=== PATIENT | female | born 1975 | race African-American/Black ===

== ENCOUNTER 2016-10-15 17:30 | Inpatient (IN) | payer BC ==
--- NOTE | 2016-10-15 18:13 | ED ---
General Adult HPI - General Chief complaint: Nausea/Vomiting/Diarrhea Stated complaint: vomiting Time Seen by Provider: 10/15/16 17:45 Source: patient, RN notes reviewed, old records reviewed Mode of arrival: ambulatory Limitations: no limitations - History of Present Illness Initial comments: This is a 41-year-old female ER for evaluation today. Patient is a 19 for evaluation of nausea and vomiting. Diarrhea. Not feeling well. Patient is on dialysis home dialysis peritoneal dialysis. Patient has a decreased appetite lately. She was refusing started on potassium supplements but has not been taking it. Patient denies any specific abdominal pain no fevers. No sick contacts or travel history. Otherwise no new medications - Related Data Home Medications Medication Instructions Recorded Confirmed Insulin Aspart [NovoLOG] 3 unit SQ AC-TID 12/24/13 10/15/16 Insulin Glargine [Lantus] 15 unit SQ HS 12/24/13 10/15/16 Sodium Bicarbonate Tab 650 mg PO DAILY 11/24/14 10/15/16 Calcitriol [Rocaltrol] 0.25 mcg PO DIRECTED 12/15/14 10/15/16 Atorvastatin Calcium [Lipitor] 20 mg PO HS 01/08/15 10/15/16 Ergocalciferol (Vitamin D2) 50,000 unit PO Q30D 01/08/15 10/15/16 [Drisdol] Magnesium Oxide [Mag-Ox] 400 mg PO TID 01/08/15 10/15/16 Midodrine [ProAmatine] 5 mg PO DAILY PRN 08/22/15 10/15/16 Ethinyl Estradiol/Drospirenone 1 tab PO DAILY 12/25/15 10/15/16 [Loryna 3 mg-0.02 mg Tablet] Pantoprazole [Protonix] 40 mg PO QAM 12/25/15 10/15/16 Metolazone [Metolazone] 5 mg PO BID 04/04/16 10/15/16 Ondansetron Odt [Zofran Odt] 4 mg PO Q12HR PRN 04/04/16 10/15/16 Furosemide [Lasix] 80 mg PO BID 10/15/16 10/15/16 Lisinopril [Prinivil] 5 mg PO BID 10/15/16 10/15/16 Metoclopramide [Reglan] 10 mg PO BID 10/15/16 10/15/16 Multivitamins, Thera [Multivitamin] 1 tab PO DAILY 10/15/16 10/15/16 Potassium Chloride Oral Liquid 10 meq PO HS 10/15/16 10/15/16 Potassium Chloride Oral Liquid 20 meq PO QAM 10/15/16 10/15/16 Sevelamer [Renvela] 800 mg PO AC-BID 10/15/16 10/15/16 Allergies Allergy/AdvReac Type Severity Reaction Status Date / Time No Known Allergies Allergy Verified 10/15/16 18:05 Review of Systems ROS Statement: Those systems with pertinent positive or pertinent negative responses have been documented in the HPI. ROS Other: All systems not noted in ROS Statement are negative. Past Medical History Past Medical History: Heart Failure, Diabetes Mellitus, Dialysis, GERD/Reflux, Hyperlipidemia, Hypertension, Renal Disease Additional Past Medical History / Comment(s): Recent admission 10/21/15 with peritonitis, End stage RENAL FAILURE WITH PERITONEAL DIALYSIS. HX: CHF, bronchitis, respiratory failure due to sepsis and was vented once, IDDM type II , O2 1L/NC prn, diabetic neuropathy bilateral feet, UTI, anemia, hiatal hernia, hypokalemia. History of Any Multi-Drug Resistant Organisms: None Reported Past Surgical History: Bowel Resection, Breast Surgery, Hernia Repair Additional Past Surgical History / Comment(s): R breast biopsy X 2 both benign. breast reduction. ADONIS CATARACT with lens implants. JANUARY 2015 HEMODIALYSIS CHEST CATHETER INSERTED AND REMOVED., PERITONEAL CATHETER INSERTED FEBRUARY 2015. Uumbilical hernia repair with ischemic bowel within-small resection. CoLnoscopy /EGD. Past Anesthesia/Blood Transfusion Reactions: Motion Sickness Additional Past Anesthesia/Blood Transfusion Reaction / Comment(s): STATES SOME MOTION SICKNESS TODAY (08/22/15) Past Psychological History: No Psychological Hx Reported Additional Psychological History / Comment(s): Continues to work at [employer]. Lifelong nonsmoker. No significant alcohol or recreational drug use. No experience. No recent animal exposures. Smoking Status: Never smoker Past Alcohol Use History: Occasional Past Drug Use History: None Reported - Past Family History Mother Family Medical History: Osteoarthritis (OA) Additional Family Medical History / Comment(s): Mother is living. Father Family Medical History: Cancer Additional Family Medical History / Comment(s): Father of LIVER cancer at age 61 yrs. General Exam Limitations: no limitations General appearance: alert, in no apparent distress Head exam: Present: atraumatic, normocephalic, normal inspection Eye exam: Present: normal appearance, PERRL, EOMI. Absent: scleral icterus, conjunctival injection, periorbital swelling ENT exam: Present: normal exam, mucous membranes moist Neck exam: Present: normal inspection. Absent: tenderness, meningismus, lymphadenopathy Respiratory exam: Present: normal lung sounds bilaterally. Absent: respiratory distress, wheezes, rales, rhonchi, stridor Cardiovascular Exam: Present: regular rate, normal rhythm, normal heart sounds. Absent: systolic murmur, diastolic murmur, rubs, gallop, clicks GI/Abdominal exam: Present: soft, normal bowel sounds. Absent: distended, tenderness, guarding, rebound, rigid Extremities exam: Present: normal inspection, full ROM, normal capillary refill. Absent: tenderness, pedal edema, joint swelling, calf tenderness Back exam: Present: normal inspection Neurological exam: Present: alert, oriented X3, CN II-XII intact Psychiatric exam: Present: normal affect, normal mood Skin exam: Present: warm, dry, intact, normal color. Absent: rash Course Vital Signs 10/15/16 10/15/16 17:36 19:10 Temperature 97.5 F L Pulse Rate 91 86 Respiratory 18 18 Rate Blood Pressure 147/88 161/95 O2 Sat by Pulse 96 97 Oximetry - Reevaluation(s) Reevaluation #1: 10/15/16 20:05 Patient still is numb arm pain leg pain muscle pain hand pain and cramping EKG Findings - EKG Comments: EKG Findings:: EKG shows normal sinus or rate of 85, [place] 144, QRS 84, QTC 647 Medical Decision Making - Medical Decision Making 41 female with severe low Schlicht abnormality, patient be admitted for I replacements, patient is dialysis patient and will have evaluation by Dr. Reyes - Lab Data Result diagrams: 10/15/16 19:20 10/15/16 19:20 Lab Results 10/15/16 10/15/16 Range/Units 19:20 19:20 WBC 4.8 (3.8-10.6) k/uL RBC 4.34 (3.80-5.40) m/uL Hgb 11.0 L (11.4-16.0) gm/dL Hct 36.3 (34.0-46.0) % MCV 83.7 (80.0-100.0) fL MCH 25.2 (25.0-35.0) pg MCHC 30.1 L (31.0-37.0) g/dL RDW 16.5 H (11.5-15.5) % Plt Count 264 (150-450) k/uL Neutrophils % 58 % Lymphocytes % 30 % Monocytes % 8 % Eosinophils % 2 % Basophils % 0 % Neutrophils # 2.8 (1.3-7.7) k/uL Lymphocytes # 1.4 (1.0-4.8) k/uL Monocytes # 0.4 (0-1.0) k/uL Eosinophils # 0.1 (0-0.7) k/uL Basophils # 0.0 (0-0.2) k/uL Hypochromasia Marked Poikilocytosis Slight Anisocytosis Slight Sodium 137 (137-145) mmol/L Potassium 1.9 L* (3.5-5.1) mmol/L Chloride 98 (98-107) mmol/L Carbon Dioxide 32 H (22-30) mmol/L Anion Gap 7 mmol/L BUN 15 (7-17) mg/dL Creatinine 3.93 H (0.52-1.04) mg/dL Est GFR (MDRD) Af Amer 15 (>60 ml/min/1.73 sqM) Est GFR (MDRD) Non-Af 13 (>60 ml/min/1.73 sqM) Glucose 109 H (74-99) mg/dL Calcium 6.6 L (8.4-10.2) mg/dL Phosphorus 2.1 L (2.5-4.5) mg/dL Magnesium 1.0 L* (1.6-2.3) mg/dL Total Bilirubin 0.4 (0.2-1.3) mg/dL AST 53 H (14-36) U/L ALT 71 H (9-52) U/L Alkaline Phosphatase 94 (38-126) U/L Total Protein 5.4 L (6.3-8.2) g/dL Albumin 2.1 L (3.5-5.0) g/dL Disposition Clinical Impression: Dehydration, End stage renal disease on dialysis due to type 2 diabetes mellitus, Chronic renal failure, Hypokalemia, Hypomagnesemia Disposition: ADMITTED IP TO THIS HOSP Condition: Fair Referrals: De Hopper MD [Primary Care Provider] - 1-2 days
[2016-10-15 19:42] LABS: Anisocytosis Slight; Basophils % (A) 0 %; CH 25.9; CHCM 31.2; Eosinophils # (A) 0.1 k/uL (0-0.7); Eosinophils % (A) 2 %; HCT 36.3 % (34.0-46.0); Hypochromasia Marked; Luc # (Auto) 0.11; Luc % (Auto) 2; Lymphocytes # (A) 1.4 k/uL (1.0-4.8); Lymphocytes % (A) 30 %; MCH 25.2 pg (25.0-35.0); MCHC 30.1 g/dL (31.0-37.0); MCV 83.7 fL (80.0-100.0); Mean Platelet Volume 7.3; Monocytes # (A) 0.4 k/uL (0-1.0); Monocytes % (A) 8 %; Neutrophils # (A) 2.8 k/uL (1.3-7.7); Neutrophils % (A) 58 %; Poikilocytosis Slight; RBC 4.34 m/uL (3.80-5.40); RDW 16.5 % (11.5-15.5); WBC 4.8 k/uL (3.8-10.6); WBC (Perox) 5.12
[2016-10-15 19:43] LABS: Phosphorous 2.1 mg/dL (2.5-4.5); Total Bilirubin 0.4 mg/dL (0.2-1.3); Total Protein 5.4 g/dL (6.3-8.2)
[2016-10-15 19:49] LABS: Calcium 6.6 mg/dL (8.4-10.2)
[2016-10-15 19:53] LABS: Potassium 1.9 mmol/L (3.5-5.1)
[2016-10-15] MEDS ORDERED: POTASSIUM CHLORIDE ER 20 MEQ TAB.ER PO STA (20:00)
[2016-10-15] MEDS ORDERED: MAGNESIUM OXIDE 400 MG TAB PO STA (20:00)
[2016-10-15] MEDS ORDERED: SODIUM CHLORIDE 0.9% 1,000 ML IV ONE (20:01)
[2016-10-15 20:16] LABS: Creatine Kinase MB 6.5 ng/mL (0.0-2.4)
[2016-10-15] MEDS: MAGNESIUM SULFATE-D5W PMX 1 GM in DEXTROSE/WATER 1 100ML.BAG IVPB SCH ×2 (20:31→23:54)
[2016-10-15] MEDS ORDERED: ACETAMINOPHEN IV (For NPO) 1,000 MG in EMPTY BAG 1 BAG IVPB PRN (20:42)
[2016-10-15 21:02] LABS: Glucose,Whole Blood 96 mg/dL (75-99)
[2016-10-15] MEDS: POTASSIUM CHLORIDE 20 MEQ, LIDOCAINE 2% INJ 20 MG in SODIUM CHLORIDE 0.9% 100 ML IVPB SCH (21:48)
[2016-10-15] MEDS ORDERED: MIDODRINE 5 MG TAB PO PRN (22:41)
[2016-10-15] MEDS: ATORVASTATIN 20 MG TAB PO SCH (23:07)
[2016-10-15] MEDS: MELATONIN 3 MG TABLET PO SCH (23:07)
[2016-10-15] MEDS: ACETAMINOPHEN TAB 325 MG TAB PO PRN (23:07)
[2016-10-15] MEDS: METOLAZONE 5 MG TAB PO SCH (23:07)
[2016-10-15] MEDS: CALCITRIOL 0.25 MCG CAP PO SCH (23:07)
[2016-10-15] MEDS: INSULIN GLARGINE 100 UNIT/ML 10 ML VIAL SQ SCH (23:12)
[2016-10-16] MEDS: DIALYSIS (PERITONEAL) DEX 2.5% 2,500 ML INTRAPERIT SCH ×2 (00:06→05:58)
[2016-10-16] MEDS: MAGNESIUM SULFATE-D5W PMX 1 GM in DEXTROSE/WATER 1 100ML.BAG IVPB SCH ×2 (01:04→02:10)
[2016-10-16] MEDS: POTASSIUM CHLORIDE 20 MEQ, LIDOCAINE 2% INJ 20 MG in SODIUM CHLORIDE 0.9% 100 ML IVPB SCH ×6 (03:20→22:49)
[2016-10-16] MEDS: ACETAMINOPHEN TAB 325 MG TAB PO PRN ×2 (04:56→20:50)
[2016-10-16 05:47] LABS: Glucose,Whole Blood 109 mg/dL (75-99)
[2016-10-16] MEDS: INSULIN LISPRO (humaLOG) 300 UNIT/3 ML VIAL SQ SCH ×7 (06:23→21:45)
[2016-10-16 07:00] LABS: Magnesium 2.2 mg/dL (1.6-2.3)
[2016-10-16 07:08] LABS: Calcium 6.1 mg/dL (8.4-10.2); Potassium 2.3 mmol/L (3.5-5.1)
[2016-10-16] MEDS ORDERED: SEVELAMER 800 MG TAB PO SCH (07:30)
[2016-10-16] MEDS ORDERED: CALCIUM CARBONATE 500 MG CHEWABLE PO ONE (08:00)
[2016-10-16] MEDS: ONDANSETRON 4 MG/2 ML VIAL IVP PRN ×3 (08:09→20:50)
[2016-10-16 08:23] LABS: Hemoglobin A1C 6.5 % (4.2-6.1)
[2016-10-16] MEDS ORDERED: FUROSEMIDE 80 MG TAB PO SCH (09:00)
[2016-10-16] MEDS ORDERED: SODIUM BICARBONATE TAB 650 MG TAB PO SCH (09:00)
[2016-10-16] MEDS ORDERED: DROSPIRENONE PO SCH (09:00)
[2016-10-16] MEDS ORDERED: ETHINYL ESTRADIOL PO SCH (09:00)
[2016-10-16] MEDS: POTASSIUM CHLORIDE ER 20 MEQ TAB.ER PO SCH ×2 (09:37→10:25)
[2016-10-16] MEDS: CALCIUM CARBONATE 500 MG CHEWABLE PO SCH ×2 (10:23→20:50)
[2016-10-16] MEDS: MULTIVITAMINS, THERA 1 EACH TAB PO SCH (10:23)
[2016-10-16] MEDS: METOLAZONE 5 MG TAB PO SCH (10:24)
[2016-10-16] MEDS: PANTOPRAZOLE 40 MG TABLET PO SCH (10:24)
[2016-10-16] MEDS: LISINOPRIL 5 MG TAB PO SCH ×2 (10:24→20:51)
[2016-10-16 11:53] LABS: Glucose,Whole Blood 94 mg/dL (75-99)
[2016-10-16] MEDS: DIALYSIS (PERITONL) DEX 4.25% 2,500 ML INTRAPERIT SCH ×3 (12:04→23:37)
--- NOTE | 2016-10-16 16:13 | CONS ---
DATE OF CONSULTATION: 10/16/2016 REASON FOR CONSULTATION: Renal failure. HISTORY OF PRESENT ILLNESS: Patient is a 41-year-old -[place] female with a history of end-stage renal disease secondary to diabetic nephropathy. She is maintained on peritoneal dialysis. She was admitted to the hospital with complaints of weakness, not feeling well, and persistent nausea and vomiting. Patient has had symptoms of diarrhea ongoing for more than 2 months now on and off. She has been evaluated by GI and was tried on empiric antibiotics, which did not help her GI complaints. She has had on and off nausea and vomiting which has been assumed to be secondary to diabetic gastroparesis. She has had low albumin persistently as outpatient, and we have discussed switching to hemodialysis temporarily. PAST MEDICAL HISTORY: 1. End-stage renal disease. 2. Diabetes. 3. Hypertension. 4. CKD bone mineral disorder. 5. Hyperlipidemia. 6. Diabetic gastroparesis. 7. Gastroesophageal reflux disease. 8. History of ventilator-dependent failure. PAST SURGICAL HISTORY: 1. Breast biopsy. 2. Hemodialysis catheter placement. 3. Peritoneal dialysis catheter placement. 4. Umbilical hernia repair with resection of small bowel. 5. Colonoscopy. 6. EGD. SOCIAL HISTORY: Negative for smoking, drug abuse or alcohol abuse. REVIEW OF SYSTEMS: As per HPI. Other systems negative. ALLERGIES: NONE. Medications include: 1. Insulin. 2. Rocaltrol. 3. Lipitor. 4. Mag-Ox. 5. Midodrine. 6. Protonix. 7. Metolazone. 8. Lasix. 9. Prinivil. 10. Multivitamins. 11. Renvela. 12. Potassium. 13. Reglan. On examination, currently patient is comfortable. She is lying in bed. She denies any complaints. She has not had any ongoing diarrhea. Patient gets nauseated when she tries to get up or move. Current blood pressure is 123/82, heart rate 76 per minute. She is afebrile. EXAMINATION OF THE HEART: S1 and S2. EXAMINATION OF THE LUNGS: Bilateral breath sounds are heard. Decreased breath sounds in bases. ABDOMEN: Soft, nontender. Examination of lower extremities shows edema 2+ bilaterally. OFFICE MANAGER EXECUTIVE ASSISTANT exam is grossly intact. Patient is moving all 4 extremities. Labs show sodium 137, potassium 2.3, chloride 102, CO2 28. Calcium was 6.1. Magnesium 1.0. Albumin 2.1. Hemoglobin was 11.0 g/dL. ASSESSMENT: 1. End-stage renal disease, on peritoneal dialysis. I will increase the exchanges to 4.25% solution q.6 hours, as patient is volume-overloaded. 2. Hypokalemia secondary to gastrointestinal fluid loss. Will replace aggressively. 3. Hypomagnesemia. Will also replace. Patient is maintained on proton pump inhibitors, but we will continue that for now, as she needs it. 4. Volume overload. Will try to increase UF with peritoneal dialysis for now. There is consideration for switching to hemodialysis temporarily, particularly given the very low albumin levels. 5. Chronic kidney disease bone mineral disorder with low phosphorus. I will discontinue the Renvela. PLAN: Discontinue Renvela. Discontinue IV fluids. Increase UF with peritoneal dialysis. Discontinue the sodium bicarb as well. Replace potassium aggressively. Repeat labs in a.m. Continue with the Rocaltrol. I will also add TUMS. Thank you for this consultation. Will continue to follow the patient with you during her hospitalization.
[2016-10-16 16:59] LABS: Glucose,Whole Blood 187 mg/dL (75-99)
--- NOTE | 2016-10-16 20:44 | HP ---
DATE OF ADMISSION: 10/15/2016 PRESENTING COMPLAINT: Weak, tired. HISTORY OF PRESENTING COMPLAINT: This is a very pleasant 41-year-old patient known to me from prior admissions. The patient has a rather extensive medical history. Patient has end-stage kidney disease, on peritoneal dialysis, also has chronic stable medical conditions including diabetes mellitus type 2, hypertension, hyperlipidemia. Patient for quite some time has got a decreased appetite, not eating much, continues to get some nausea, vomiting. Patient had EGD performed that showed hiatal hernia and GERD performed by Dr. Abebe. Patient was sent in for very low electrolytes including potassium 4.9 and low magnesium. The patient still managed to go to work. Patient does take Reglan. The patient does feel a bit bloated. REVIEW OF SYSTEMS: CONSTITUTIONAL: Weak, tired, loss of appetite. HEENT: None. RESPIRATORY: None. CARDIOVASCULAR: None. GASTROINTESTINAL: Abdominal distention and nausea. GENITOURINARY: None. MUSCULOSKELETAL: None. Dermatologic: None. LYMPHATIC: None. PSYCHIATRY: None. NEUROLOGICAL: None. Past medical history of: 1. End-stage kidney disease, on peritoneal dialysis. 2. Type 2 diabetes mellitus, 3. Anemia, secondary chronic kidney disease. 4. Essential hypertension. 5. Hyperlipidemia. 6. Diabetic neuropathy. PAST SURGICAL HISTORY: Breast surgery, hernia repair, right breast biopsy x2, breast reduction, bilateral cataract, lens implant, peritoneal dialysis catheter placed February 2015, umbilical hernia repair with ischemic bowel ( ) resection. SOCIAL HISTORY: The patient works at ( ). Nonsmoking. . FAMILY HISTORY: Liver cancer. HOME MEDICATIONS: 1. Sodium bicarbonate 650 mg p.o. daily. 2. Renvela 800 mg p.o. a.c. b.i.d. 3. Potassium 10 meq q.h.s., 20 meq in the morning. 4. Protonix 40 mg p.o. daily. 5. Zofran 4 mg p.o. q4h p.r.n. 6. Multivitamin 1 tablet p.o. daily. 7. Midodrine 5 mg p.o. daily p.r.n. 8. Metalazone 5 mg p.o. b.i.d. 9. Reglan 10 mg p.o. b.i.d. 10. Magnesium oxide 400 mg p.o. t.i.d. 11. Prinivil 5 mg p.o. b.i.d. 12. Insulin Lantus 15 units subcu q.h.s. 13. NovoLog 3 units a.c. t.i.d. 14. Lasix 80 mg b.i.d. 15. ( ) 3 one tablet p.o. daily. 16. Vitamin D2, 50,000 units p.o. for 30 days. 17. Calcitriol 0.25 mcg as directed. 18. Lipitor 20 mg p.o. q.h.s. ALLERGIES: None. On examination temperature 97.5, pulse 91, respirations 18, blood pressure 140/88, pulse ox 96% on room air. GENERAL APPEARANCE: Average build, lying in bed tired -appearing. EYES: Pupils equal. Conjunctivae pale. HEENT: External appearance of nose and ears normal. Oral cavity normal. NECK: JVD not raised. Mass not palpable. RESPIRATORY: Effort normal. LUNGS: Fair air entry. CARDIOVASCULAR: First and second sounds normal. Minimal edema. ABDOMEN: Distended, soft. Liver and spleen not palpable. LYMPHATIC: No lymph node palpable in neck or axillae. PSYCHIATRY: Alert and oriented x3. Mood and affect normal. INVESTIGATIONS: White count 4.8, hemoglobin 11, potassium 1.9 repeat 2.3, BUN 15, creatinine 3.93, phosphorus 2.1. Magnesium 1.0, albumin 2.1. ASSESSMENT: 1. Severe hypokalemia in a patient with poor oral intake. 2. Severe hypomagnesemia. 3. Moderate protein calorie malnutrition with albumin down to 2.1. Patient was put oral intake for quite some time and decreased muscle mass. 4. End-stage kidney disease, on peritoneal dialysis. 5. Anemia secondary to chronic kidney disease. 6. Hyperlipidemia. 7. Essential hypertension PLAN: Patient given potassium supplement. Nephrology is consulted. Patient dialysate may need to be adjusted. Patient already on Reglan. Will try dietary shakes, get dietitian involved and also start the patient on scopolamine patch. Prognosis guarded. Care was discussed with the patient. Accu-Cheks will be followed. Additionally, we will talk with nephrology, if patient's Lasix is driving potassium down. Patient is already on Zaroxolyn and Lasix.
[2016-10-16] MEDS: ATORVASTATIN 20 MG TAB PO SCH (20:50)
[2016-10-16] MEDS: CALCITRIOL 0.25 MCG CAP PO SCH (20:51)
[2016-10-16] MEDS: MELATONIN 3 MG TABLET PO SCH (20:51)
[2016-10-16 20:55] LABS: Glucose,Whole Blood 154 mg/dL (75-99)
[2016-10-16 21:14] LABS: RBC, Body Fluid 1 /uL
[2016-10-16] MEDS: INSULIN GLARGINE 100 UNIT/ML 10 ML VIAL SQ SCH (21:43)
[2016-10-16] MEDS ORDERED: POTASSIUM CHLORIDE ER 20 MEQ TAB.ER PO STA (21:52)
[2016-10-16] MEDS: SCOPOLAMINE 1.5MG/72HR PATCH TRANSDERM SCH (22:49)
[2016-10-17] MEDS: POTASSIUM CHLORIDE 20 MEQ, LIDOCAINE 2% INJ 20 MG in SODIUM CHLORIDE 0.9% 100 ML IVPB SCH ×5 (00:54→10:19)
[2016-10-17] MEDS: HYDROcodone/APAP 5-325MG 1 EACH TAB PO PRN ×3 (01:15→11:26)
[2016-10-17] MEDS: DIALYSIS (PERITONL) DEX 4.25% 2,500 ML INTRAPERIT SCH ×2 (05:56→11:15)
[2016-10-17 06:47] LABS: Glucose,Whole Blood 103 mg/dL (75-99)
[2016-10-17] MEDS: INSULIN LISPRO (humaLOG) 300 UNIT/3 ML VIAL SQ SCH ×7 (07:04→23:51)
[2016-10-17 07:58] LABS: Magnesium 1.9 mg/dL (1.6-2.3)
[2016-10-17 08:01] LABS: Potassium 3.4 mmol/L (3.5-5.1)
[2016-10-17] MEDS: MULTIVITAMINS, THERA 1 EACH TAB PO SCH (09:03)
[2016-10-17] MEDS: CALCIUM CARBONATE 500 MG CHEWABLE PO SCH (09:04)
[2016-10-17] MEDS: PANTOPRAZOLE 40 MG TABLET PO SCH (09:04)
[2016-10-17] MEDS: LISINOPRIL 5 MG TAB PO SCH (09:04)
--- NOTE | 2016-10-17 10:01 | P.PN ---
Subjective Patient is seen in follow-up for end-stage renal disease. She is maintained on peritoneal dialysis. Patient presented with generalized weakness along with nausea and vomiting. She is also fluid overloaded. She is currently maintained on 4.25% exchanges and still not maintaining a net negative fluid balance. Her appetite remains poor. Vital signs are stable. General: The patient appeared well nourished and normally developed. HEENT: Head exam is unremarkable. Neck is without jugular venous distension. LUNGS: Lungs are clear to auscultation and percussion. Breath sounds decreased. HEART: Rate and Rhythm are regular. First and second heart sounds normal. No murmurs, rubs or gallops. ABDOMEN: Abdominal exam reveals normal bowel sounds. Moderately distended. No evidence of peritonitis. EXTREMITITES: 1+ edema. Objective - Vital Signs Vital signs: Vital Signs Temp 97.1 F L 10/17/16 08:00 Pulse 98 10/17/16 08:00 Resp 16 10/17/16 08:00 BP 103/66 10/17/16 08:00 Pulse Ox 96 10/17/16 08:00 Intake & Output 10/16/16 10/17/16 10/17/16 18:59 06:59 18:59 Intake Total 540 100 300 Balance 540 100 300 Weight 74 kg 72.6 kg 72.6 kg Intake: Intake, IV Titration 300 Amount Potassium Chloride 20 meq 300 Lidocaine 2% Inj 20 mg In Sodium Chloride 0.9% 100 ml @ 55.5 mls/hr IVPB Q2HR [facility] Rx#:[id number] Oral 240 100 300 Other: Voiding Method Toilet Toilet # Voids 0 0 - Labs CBC & Chem 7: 10/15/16 19:20 10/17/16 07:04 Labs: Abnormal Lab Results - Last 24 Hours (Table) 10/16/16 10/16/16 10/16/16 Range/Units 16:33 20:42 20:54 Potassium 2.6 L* (3.5-5.1) mmol/L Chloride (98-107) mmol/L Creatinine (0.52-1.04) mg/dL Glucose (74-99) mg/dL POC Glucose (mg/dL) 187 H 154 H (75-99) mg/dL Calcium (8.4-10.2) mg/dL 10/17/16 10/17/16 Range/Units 06:46 07:04 Potassium 3.4 L (3.5-5.1) mmol/L Chloride 109 H (98-107) mmol/L Creatinine 3.37 H (0.52-1.04) mg/dL Glucose 122 H (74-99) mg/dL POC Glucose (mg/dL) 103 H (75-99) mg/dL Calcium 7.0 L (8.4-10.2) mg/dL Assessment and Plan Plan: Assessment: #1. End-stage renal disease maintained on peritoneal dialysis. #2. Hypokalemia secondary to poor nutritional status as well as peritoneal dialysis. Improved. Patient was also severely low magnesium level. #3. Hypocalcemia secondary to chronic kidney disease as well as hypoalbuminemia. #4. Volume overload. #5. Insulin-dependent diabetes mellitus. Plan: Replace potassium. 40 mEq today. Maintain Tums and calcitriol. Patient is agreeable to switch to temporary hemodialysis. Consults vascular surgery for permacath placement and will plan for first hemodialysis treatment today and another treatment tomorrow.
[2016-10-17] MEDS ORDERED: POTASSIUM CHLORIDE 20 MEQ, LIDOCAINE 2% INJ 20 MG in SODIUM CHLORIDE 0.9% 100 ML IVPB ONE (10:03)
--- NOTE | 2016-10-17 10:53 | CDI ---
In responding to this query, please exercise your independent professional judgment. The [facility] Coding Staff and Clinical Documentation Specialists appreciate your assistance in clarifying documentation, maintaining compliance with coding guidelines, accurately documenting patients condition' and capturing severity of illness. The fact that a question is asked does not imply that any particular answer is desired or expected. Communication forms are a method of clarifying documentation and are not made part of the Legal Health Record. Thank you in advance for your clarification. Last Revision, October 2015 Pollo Wilkinson [address] [place] [address] Documentation Clarification Form Date: 10/17/2016 10:38:00 AM From: Crisatl Perez RN, CCDS Admit Date: 10/15/2016 8:01:00 PM Patient Name: Mónica Titus Visit Number: [id number] Dr. Matthew Roberson CHF is documented in the History of the H&P and the patient has documented Volume overload this admission. Can you please clarify? History/Risk Factors: ESRD on PD, CHF, HTN, Hyperlipidemia Clinical Indicators: 10/16 Nephro: Consult: "Volume overload. Will try to increase UF with peritoneal dialysis for now." VS/Pulse OX: BNP: not ordered 01/09/15 Echocardiogram Results: EF 50-55%, mild concentric LVH, moderate pulmonary HTN, moderate mitral & tricuspid regurg Chest X Ray: Not done Treatment: 10/16 H&P: "Patient is already on Zaroxolyn and Lasix. Additionally, we will talk with nephrology, if patient's Lasix is driving potassium down. " *At current time Diasylate has been adjusted and Lasix and Zaroxolyn have been discontinued.* Consults: Nephro, NO Cardiology Consult In your professional opinion, can you please clarify the acuity and type of CHF if known? Acute Chronic Acute on Chronic AND Systolic Diastolic Systolic and Diastolic Cor Pulmonale (Right Sided HF w/ Pulmonary HTN) Unable to determine Other, please specify If known, please specify if Heart Failure is due to: Hypertension Rheumatic Fever Please document in your progress notes and discharge summary in order to capture severity of illness and risk of mortality. Include clinical findings that support your diagnosis. FYI: Press F11 to launch patient chart. __+___ Place X here if this finding has no clinical significance, is not applicable or if you are not able to provide any additional documentation. MTDD
[2016-10-17 11:47] LABS: Glucose,Whole Blood 116 mg/dL (75-99)
[2016-10-17 12:18] LABS: Hepatitis B Surface Ag Index 0.08
[2016-10-17 12:24] LABS: Hepatitis B Core IgM Index 0.03
[2016-10-17 12:36] LABS: Hepatitis C Virus IgG Index 0.05
[2016-10-17 12:43] LABS: Hepatitis C Virus IgG Ab Negative (Negative)
[2016-10-17] MEDS: ONDANSETRON 4 MG/2 ML VIAL IVP PRN (13:00)
[2016-10-17 16:14] LABS: Glucose,Whole Blood 174 mg/dL (75-99)
[2016-10-17 16:50] LABS: Glucose,Whole Blood 159 mg/dL (75-99)
[2016-10-17] MEDS ORDERED: SODIUM CHLORIDE 0.9% 250 ML IV ONE (18:45)
[2016-10-17] MEDS ORDERED: fentaNYL (PF) 50 MCG/ML 2 ML AMP IV ONE (18:50)
[2016-10-17] MEDS ORDERED: LIDOCAINE 2% INJ 20 MG/ML SQ ONE ×3 (18:57→19:12)
[2016-10-17] MEDS ORDERED: MIDAZOLAM 2 MG/2 ML VIAL IV ONE (18:57)
--- NOTE | 2016-10-17 20:08 | XR ---
EXAMINATION TYPE: XR chest 1V portable DATE OF EXAM: 10/17/2016 8:01 PM COMPARISON: Chest radiograph dated 04/04/2016. HISTORY: Right permacath insertion. TECHNIQUE: Single frontal view of the chest is obtained. FINDINGS: There is a limited inspiration resulting in crowding of the pulmonary vasculature. Linear platelike left lower lobe atelectasis is noted as well as obscuration of the right heart border from a ill-defined patchy opacity. There is been interval insertion of a dual lumen hemodialysis catheter/ permacath. The distal end terminates within the high right atrium. There is no evidence of postproced ural pneumothorax. Osseous structures are intact. Cardia mediastinal silhouette is unchanged and none nlarged. IMPRESSION: 1. No postprocedural pneumothorax with newly inserted right permacath terminating in the high right a trium. 2. Ill-defined bright middle lobe opacity obscuring the right atrium. This may represent confluence o f vasculature from limited inspiration, atelectasis, or early pneumonia. Short-term follow-up exam is recommended. 3. Linear platelike left lower lobe atelectasis.
[2016-10-17 20:45] LABS: Glucose,Whole Blood 56 mg/dL (75-99)
[2016-10-17] MEDS: ACETAMINOPHEN TAB 325 MG TAB PO PRN (20:51)
[2016-10-17 21:03] LABS: Glucose,Whole Blood 55 mg/dL (75-99)
[2016-10-17 21:17] LABS: Glucose,Whole Blood 54 mg/dL (75-99)
[2016-10-17] MEDS ORDERED: DEXTROSE 50%-WATER 50 ML SYRINGE IVP ONE (21:19)
[2016-10-17 21:44] LABS: Glucose,Whole Blood 173 mg/dL (75-99)
--- NOTE | 2016-10-17 21:44 | CONS ---
DATE OF CONSULTATION: This is a 41-year-old female known to me from the past. Patient has history of chronic renal failure. Patient has peritoneal dialysis. Patient has some issues with the peritoneal dialysis. I was consulted for placement of dialysis catheter. SURGICAL HISTORY: Patient had a dialysis catheter placed in the past x2. Patient had peritoneal dialysis, also. History of chronic renal failure. On examination, neck is supple. No bruit appreciated. Chest is clear on auscultation. First and second sounds normal. Abdomen is soft, nontender. VASCULAR EXAMINATION: Brachial, radial and femoral pulses are present IMPRESSION: Chronic renal failure with mild functional impairment of dialysis catheter. PLAN: Placement of another dialysis catheter. Risks and complications were discussed.
--- NOTE | 2016-10-17 22:21 | PN ---
PRESENTING COMPLAINT: 10/17/2016 PRESENTING COMPLAINT: Tired. INTERVAL HISTORY: Patient's oral intake appears to continue to be minimal. I spoke to Dr. Reyes yesterday and discontinued the Lasix and Zaroxolyn. The patient has agreed to proceed with hemodialysis and will have a catheter placement done today. The patient is still retaining fluid, especially in the abdomen from peritoneal dialysis. She is feeling weak and tired. The patient's mother is in the room today. Review of systems done for constitutional, cardiovascular, GI, pulmonary; relevant findings as above. Current medications are reviewed. On examination, temperature 97.1, pulse 89, respirations 16, blood pressure 102/73, pulse ox 97% on room air. GENERAL APPEARANCE: Lying in bed, tired appearing. EYES: Pupils equal. Conjunctivae pale. NECK: JVD not raised. Mass not palpable. RESPIRATORY: Effort normal. Fair air entry. CARDIOVASCULAR: First and second sounds normal. Some edema present. ABDOMEN: Distended, soft. Liver and spleen not palpable. PSYCHIATRY: Alert and oriented x3. Mood and affect normal. INVESTIGATIONS: Potassium 3.4. BUN 11, creatinine 3.37. Accu-Cheks are noted ASSESSMENT: 1. Severe hyperkalemia. Patient has had poor oral intake. Improved. 2. Severe hypomagnesemia, improved. 3. Moderate protein calorie nutrition with albumin down to 2.1. The patient has poor oral intake for quite some time and decreased muscle mass. 4. Acute fluid overload from incomplete peritoneal dialysis. 5. End-stage kidney disease, on peritoneal dialysis. 6. Anemia secondary to chronic kidney disease. 7. Hyperlipidemia. 8. Essential hypertension. PLAN: Continue current medications and treatment plan. Patient is getting a dialysis catheter placed today, to resume hemodialysis. I am hoping the patient's nausea actually gets better following hemodialysis, nothing else seems to be working. Prognosis is guarded.
[2016-10-17] MEDS ORDERED: HEPARIN SODIUM,PORCINE 5,000 UNIT/ML 1 ML VIAL ONE (23:50)
[2016-10-17] MEDS: INSULIN GLARGINE 100 UNIT/ML 10 ML VIAL SQ SCH (23:51)
[2016-10-18] MEDS: CALCIUM CARBONATE 500 MG CHEWABLE PO SCH ×3 (00:56→20:37)
[2016-10-18] MEDS: LISINOPRIL 5 MG TAB PO SCH ×2 (00:56→09:24)
[2016-10-18] MEDS: ATORVASTATIN 20 MG TAB PO SCH ×2 (00:56→20:37)
[2016-10-18] MEDS: MELATONIN 3 MG TABLET PO SCH (00:56)
[2016-10-18] MEDS: CALCITRIOL 0.25 MCG CAP PO SCH (00:57)
[2016-10-18 01:00] LABS: Glucose,Whole Blood 80 mg/dL (75-99)
[2016-10-18] MEDS ORDERED: Potassium Replacement Protocol 1 EACH MISC MISCELLANE PRN (02:26)
[2016-10-18] MEDS: POTASSIUM CHLORIDE 10 MEQ, LIDOCAINE 2% INJ 10 MG in SODIUM CHLORIDE 0.9% 100 ML IV SCH ×2 (03:20→04:41)
[2016-10-18 06:00] LABS: Glucose,Whole Blood 51 mg/dL (75-99)
[2016-10-18 06:17] LABS: Glucose,Whole Blood 52 mg/dL (75-99)
[2016-10-18] MEDS ORDERED: DEXTROSE 50%-WATER 50 ML SYRINGE IVP ONE (06:17)
[2016-10-18] MEDS: INSULIN LISPRO (humaLOG) 300 UNIT/3 ML VIAL SQ SCH ×7 (06:37→21:13)
[2016-10-18 06:46] LABS: Glucose,Whole Blood 153 mg/dL (75-99)
[2016-10-18] MEDS: ONDANSETRON 4 MG/2 ML VIAL IVP PRN (08:13)
--- NOTE | 2016-10-18 08:20 | PCN ---
DATE OF PROCEDURE: PREOPERATIVE DIAGNOSIS: Acute, chronic renal failure with malfunctioning peritoneal dialysis catheter. PROCEDURE: Ultrasound-guided dialysis catheter placed to ( ) right internal jugular vein. Patient was brought to the qc lab technician. The right side of the neck and chest were prepped and draped in the usual sterile manner and 1% lidocaine infiltrated. Micropuncture introduced into the right internal jugular vein. Micropuncture guidewire passed then 4-Vietnamese dilator advanced on top the guidewire. Then regular guidewire was passed, which was parked at the inferior vena cava and dilator and sheath were advanced on the top of the guidewire. Through the sheath, we introduced the dialysis catheter. Tip of the catheter was in superior vena cava and atrium ( ), flushed with heparin saline and incision closed with Vicryl and nylon. Dressing applied. The patient tolerated the procedure well.
--- NOTE | 2016-10-18 08:48 | P.PN ---
Subjective Patient is seen in follow-up for end-stage renal disease. She was maintained on peritoneal dialysis and has now been transitioned over to hemodialysis. Patient presented with generalized weakness along with nausea and vomiting. She is also fluid overloaded which is improved after dialysis yesterday. Continues to have nausea and vomiting. Appetite remains poor. Vital signs are stable. General: The patient appeared well nourished and normally developed. HEENT: Head exam is unremarkable. Neck is without jugular venous distension. LUNGS: Lungs are clear to auscultation and percussion. Breath sounds decreased. HEART: Rate and Rhythm are regular. First and second heart sounds normal. No murmurs, rubs or gallops. ABDOMEN: Abdominal exam reveals normal bowel sounds. Moderately distended. No evidence of peritonitis. EXTREMITITES: 1+ edema. Objective - Vital Signs Vital signs: Vital Signs Temp 96.9 F L 10/18/16 04:00 Pulse 101 H 10/18/16 04:00 Resp 20 10/18/16 04:00 BP 173/106 10/18/16 04:00 Pulse Ox 99 10/18/16 04:00 Intake & Output 10/17/16 10/18/16 10/18/16 18:59 06:59 18:59 Intake Total 1100 550 Output Total 250 Balance 1100 300 Weight 72.6 kg 72.2 kg Intake: IV 100 200 0.9 @ 10mls 100 Potassium Chloride 10 meq 100 Lidocaine 2% Inj 10 mg In Sodium Chloride 0.9% 100 ml @ 100 mls/hr IV Q1HR ALO Rx#:[id number] Intake, IV Titration 200 Amount Potassium Chloride 20 meq 200 Lidocaine 2% Inj 20 mg In Sodium Chloride 0.9% 100 ml @ 55.5 mls/hr IVPB Q2H ALO Rx#:[id number] Oral 800 350 Output: Urine 250 Other: Voiding Method Toilet Toilet # Voids 0 1 - Labs CBC & Chem 7: 10/15/16 19:20 10/17/16 20:15 Labs: Abnormal Lab Results - Last 24 Hours (Table) 10/17/16 10/17/16 10/17/16 Range/Units 11:27 16:09 16:48 Potassium (3.5-5.1) mmol/L POC Glucose (mg/dL) 116 H 174 H 159 H (75-99) mg/dL 10/17/16 10/17/16 10/17/16 Range/Units 20:15 20:43 21:00 Potassium 3.4 L (3.5-5.1) mmol/L POC Glucose (mg/dL) 56 L 55 L (75-99) mg/dL 10/17/16 10/17/16 10/18/16 Range/Units 21:16 21:41 05:58 Potassium (3.5-5.1) mmol/L POC Glucose (mg/dL) 54 L 173 H 51 L (75-99) mg/dL 10/18/16 10/18/16 Range/Units 06:15 06:41 Potassium (3.5-5.1) mmol/L POC Glucose (mg/dL) 52 L 153 H (75-99) mg/dL Assessment and Plan Plan: Assessment: #1. End-stage renal disease now maintained on hemodialysis. Permacath placed October 17. #2. Hypokalemia secondary to poor nutritional status as well as peritoneal dialysis. Improved. Patient also had severely low magnesium level. #3. Hypocalcemia secondary to chronic kidney disease as well as hypoalbuminemia. #4. Volume overload. Improved. #5. Insulin-dependent diabetes mellitus. Plan: Second treatment of hemodialysis today with goal 2 liters ultrafiltration. Next treatment tomorrow. Replace electrolytes as needed. Maintain Tums and calcitriol. Check BMP and magnesium level today. assurance sourcing manager to help facilitate outpatient hemodialysis. Will transition over back to peritoneal dialysis in about one month.
[2016-10-18] MEDS: PANTOPRAZOLE 40 MG TABLET PO SCH (09:24)
[2016-10-18] MEDS: MULTIVITAMINS, THERA 1 EACH TAB PO SCH (09:25)
[2016-10-18 11:33] LABS: Glucose,Whole Blood 81 mg/dL (75-99)
--- NOTE | 2016-10-18 11:39 | IR ---
EXAMINATION TYPE: IR cvc insert central tunneled DATE OF EXAM: 10/17/2016 7:50 PM COMPARISON: NONE HISTORY: Peripheral vascular occlusive disease. Fluoroscopy was applied to the referring clinician. See dictated report from vascular surgeon. 1.1 m inute of fluoroscopy time.
[2016-10-18 12:00] LABS: Magnesium 1.7 mg/dL (1.6-2.3); Potassium 3.2 mmol/L (3.5-5.1)
[2016-10-18] MEDS ORDERED: POTASSIUM CHLORIDE ER 20 MEQ TAB.ER PO STA (14:08)
[2016-10-18] MEDS ORDERED: HEPARIN SODIUM,PORCINE 5,000 UNIT/ML 1 ML VIAL ONE (15:00)
[2016-10-18 16:15] LABS: Glucose,Whole Blood 70 mg/dL (75-99)
[2016-10-18 16:42] LABS: Glucose,Whole Blood 69 mg/dL (75-99)
[2016-10-18 17:35] LABS: Glucose,Whole Blood 83 mg/dL (75-99)
[2016-10-18] MEDS ORDERED: PNEUMOCOCCAL VACC-PNEUMOVAX 23 25 MCG/0.5 ML VIAL IM ONE (18:15)
--- NOTE | 2016-10-18 18:16 | PN ---
DATE OF SERVICE: 10/18/2016 PRESENTING COMPLAINT: Weak, tired. INTERVAL HISTORY: This is a patient with peritoneal dialysis being ineffective, getting switched over to hemodialysis; had a hemodialysis catheter placed yesterday. Patient had her first hemodialysis yesterday; still having nausea. Did get some juice and yogurt this morning; threw it up again. Patient has been problems with nausea for some time. Patient did walk in the hallway with a walker with the physical therapist. Otherwise rather cheerful. Review of systems done for constitutional, cardiovascular, GI, pulmonary; relevant findings as above. Current medications are reviewed. On examination, temperature 98.4, pulse 109, respiration 20, blood pressure 171/88, pulse ox 95% on room air. GENERAL APPEARANCE: Comfortable. Not in distress, tired-appearing. EYES: Pupils equal. Conjunctivae normal. NECK: JVD not raised. Mass not palpable. RESPIRATORY: Effort normal. LUNGS: Fair air entry. CARDIOVASCULAR: First and second sounds normal. Some edema present. ABDOMEN: Distended, soft. Liver and spleen not palpable. PSYCHIATRY: Alert and oriented x3. Mood and affect tired-appearing. INVESTIGATIONS: Potassium 3.2. BUN 7, creatinine 2.60. Accu-Cheks noted. ASSESSMENT: 1. Severe hypokalemia on presentation from poor intake, improved. 2. Severe hypomagnesemia on presentation, improved. 3. Moderate to severe protein-calorie malnutrition. Patient has not been able to eat for quite some time, with poor oral intake and persistent nausea. 4. Acute fluid overload from ineffective peritoneal dialysis. 5. End-stage kidney disease, on peritoneal dialysis, now being switched over to hemodialysis, and a new peritoneal dialysis catheter was placed. 6. Anemia secondary to chronic kidney disease. 7. Hyperlipidemia. 8. Essential hypertension. 9. Persistent nausea, likely from uremia. PLAN: Continue current medication and treatment plan. Will discontinue patient's Lantus, as she is getting hypoglycemic. Care was discussed with the patient. Slow to respond. Will follow.
[2016-10-18] MEDS ORDERED: cloNIDine HCL 0.1 MG TAB PO STA (18:29)
[2016-10-18] MEDS: HYDROcodone/APAP 5-325MG 1 EACH TAB PO PRN (19:05)
[2016-10-18] MEDS: LISINOPRIL 10 MG TAB PO SCH (20:37)
[2016-10-18 20:53] LABS: Glucose,Whole Blood 77 mg/dL (75-99)
[2016-10-18] MEDS ORDERED: CALCITRIOL 0.25 MCG CAP PO SCH (21:00)
[2016-10-19] MEDS: MELATONIN 3 MG TABLET PO SCH ×2 (05:27→21:25)
[2016-10-19 06:29] LABS: Glucose,Whole Blood 98 mg/dL (75-99)
[2016-10-19] MEDS: INSULIN LISPRO (humaLOG) 300 UNIT/3 ML VIAL SQ SCH ×7 (06:39→21:24)
--- NOTE | 2016-10-19 08:48 | P.PN ---
Subjective Patient is seen in follow-up for end-stage renal disease. She was maintained on peritoneal dialysis and has now been transitioned over to hemodialysis. Patient presented with generalized weakness along with nausea and vomiting. She is also fluid overloaded which is improving with hemodialysis. Nausea and vomiting are significantly improved and she is now tolerating oral intake as well. Vital signs are stable. General: The patient appeared well nourished and normally developed. HEENT: Head exam is unremarkable. Neck is without jugular venous distension. LUNGS: Lungs are clear to auscultation and percussion. Breath sounds decreased. HEART: Rate and Rhythm are regular. First and second heart sounds normal. No murmurs, rubs or gallops. ABDOMEN: Abdominal exam reveals normal bowel sounds. Moderately distended. No evidence of peritonitis. EXTREMITITES: 1+ edema. Objective - Vital Signs Vital signs: Vital Signs Temp 97 F L 10/19/16 04:00 Pulse 97 10/19/16 04:00 Resp 16 10/19/16 04:00 BP 135/74 10/19/16 04:00 Pulse Ox 99 10/19/16 04:00 Intake & Output 10/18/16 10/19/16 10/19/16 18:59 06:59 18:59 Intake Total 400 310 Balance 400 310 Weight 72.2 kg 70.4 kg Intake: IV 80 10 0.9 @ 10mls 80 10 Oral 320 300 Other: Voiding Method Toilet Toilet # Voids 1 0 - Labs CBC & Chem 7: 10/15/16 19:20 10/19/16 05:51 Labs: Abnormal Lab Results - Last 24 Hours (Table) 10/18/16 10/18/16 10/18/16 Range/Units 10:55 16:04 16:34 Potassium 3.2 L (3.5-5.1) mmol/L Creatinine 2.60 H (0.52-1.04) mg/dL POC Glucose (mg/dL) 70 L 69 L (75-99) mg/dL Calcium 7.0 L (8.4-10.2) mg/dL Assessment and Plan Plan: Assessment: #1. End-stage renal disease now maintained on hemodialysis. Permacath placed October 17. #2. Hypokalemia secondary to poor nutritional status as well as peritoneal dialysis. Improved. Patient also had severely low magnesium level. #3. Hypocalcemia secondary to chronic kidney disease as well as hypoalbuminemia. #4. Volume overload. Improved. #5. Insulin-dependent diabetes mellitus. #6. Hypertension with chronic kidney disease. Controlled. Plan: Hemodialysis today with goal 2 liters ultrafiltration. Replace electrolytes as needed. Maintain Tums and calcitriol. fire manager to help facilitate outpatient hemodialysis. Will transition over back to peritoneal dialysis in about one month.
[2016-10-19] MEDS: CALCIUM CARBONATE 500 MG CHEWABLE PO SCH ×2 (08:59→21:25)
[2016-10-19] MEDS: LISINOPRIL 10 MG TAB PO SCH ×2 (09:00→21:25)
[2016-10-19] MEDS: MULTIVITAMINS, THERA 1 EACH TAB PO SCH (09:00)
[2016-10-19] MEDS: PANTOPRAZOLE 40 MG TABLET PO SCH (09:00)
[2016-10-19 12:05] LABS: Glucose,Whole Blood 129 mg/dL (75-99)
[2016-10-19 16:20] LABS: Glucose,Whole Blood 130 mg/dL (75-99)
--- NOTE | 2016-10-19 17:20 | PN ---
DATE OF SERVICE: 10/19/2016 INTERVAL HISTORY: Ms. Titus is a 41-year-old female with peritoneal dialysis being switched to hemodialysis. Patient had hemodialysis catheter placed and did get her first run of dialysis done on 10/17. Patient did have some nausea yesterday and she could only tolerate juice and yogurt. Today her nausea seems to be improving and she is having her lunch this afternoon. She says she does not have any active complaints. REVIEW OF SYSTEMS: The patient denies having any fevers, chills. No chest pain. No palpitations. No difficulty in breathing. No abdominal pain, nausea, vomiting, or diarrhea. Patient's medications have been reviewed. On examination, patient's vital signs temperature 97.5, heart rate 86, respiratory rate 16, blood pressure 139/82, saturating at 98% on room air. GENERAL EXAMINATION: Comfortable, no distress. HEAD: Pupils reactive. EYE: Equal and reactive. Conjunctivae are normal. NECK: No JVD. CARDIAC: S1, S2 heard. RESPIRATORY: Bilateral breath sounds are positive. ABDOMEN: Soft. Bowel sounds positive. EXTREMITIES: No edema. No cyanosis. PSYCHIATRIC: Appropriate mood and affect. PRICING MANAGER: No focal deficits. Patient's labs: No new labs from today, but yesterday sodium 140, potassium 3.2, chloride 107, bicarb 29, BUN 7, creatinine of 2.60. ASSESSMENT AND PLAN: 1. Severe hypokalemia due to poor p.o. intake, which is improved. 2. Severe hypomagnesemia and due to poor p.o. intake, which has improved. 3. Moderate to severe protein calorie malnutrition due to nausea poor p.o. intake. 4. Acute fluid overload from ineffective peritoneal dialysis. 5. Chronic kidney disease on peritoneal dialysis that has been switched to hemodialysis. 6. Anemia secondary to chronic kidney disease. 7. Hyperlipidemia. 8. Hypertension. 9. Nausea that is improving. PLAN: Continue with the current medication and dialysis as per Nephrology recommendations and we will continue with the current treatment plan and further recommendations to follow depending on the progress of the patient. MTDD
[2016-10-19 20:33] LABS: Glucose,Whole Blood 116 mg/dL (75-99)
[2016-10-19] MEDS: ATORVASTATIN 20 MG TAB PO SCH (21:25)
[2016-10-19] MEDS: SCOPOLAMINE 1.5MG/72HR PATCH TRANSDERM SCH (22:30)
[2016-10-20 06:06] LABS: Glucose,Whole Blood 126 mg/dL (75-99)
[2016-10-20] MEDS: INSULIN LISPRO (humaLOG) 300 UNIT/3 ML VIAL SQ SCH ×10 (06:34→20:59)
[2016-10-20] MEDS: LISINOPRIL 10 MG TAB PO SCH ×2 (08:05→21:14)
[2016-10-20] MEDS: CALCIUM CARBONATE 500 MG CHEWABLE PO SCH ×2 (08:05→21:14)
[2016-10-20] MEDS: PANTOPRAZOLE 40 MG TABLET PO SCH (08:05)
[2016-10-20] MEDS: MULTIVITAMINS, THERA 1 EACH TAB PO SCH (08:05)
[2016-10-20 12:06] LABS: Glucose,Whole Blood 109 mg/dL (75-99)
[2016-10-20 13:14] VITALS: RESP 18
[2016-10-20 17:13] LABS: Glucose,Whole Blood 94 mg/dL (75-99)
[2016-10-20 20:45] LABS: Glucose,Whole Blood 91 mg/dL (75-99)
[2016-10-20] MEDS: HYDROcodone/APAP 5-325MG 1 EACH TAB PO PRN (21:13)
[2016-10-20] MEDS: MELATONIN 3 MG TABLET PO SCH (21:14)
[2016-10-20] MEDS: ATORVASTATIN 20 MG TAB PO SCH (21:14)
[2016-10-20] MEDS: cloNIDine HCL 0.1 MG TAB PO PRN (22:07)
[2016-10-21] MEDS: HYDROcodone/APAP 5-325MG 1 EACH TAB PO PRN ×2 (04:38→10:24)
[2016-10-21 05:43] LABS: Glucose,Whole Blood 91 mg/dL (75-99)
[2016-10-21] MEDS: INSULIN LISPRO (humaLOG) 300 UNIT/3 ML VIAL SQ SCH ×3 (06:19→11:37)
[2016-10-21 07:31] LABS: Calcium 7.6 mg/dL (8.4-10.2); Potassium 4.2 mmol/L (3.5-5.1)
[2016-10-21] MEDS: MULTIVITAMINS, THERA 1 EACH TAB PO SCH (08:18)
[2016-10-21] MEDS: PANTOPRAZOLE 40 MG TABLET PO SCH (08:18)
[2016-10-21] MEDS: LISINOPRIL 10 MG TAB PO SCH (08:18)
[2016-10-21] MEDS: CALCIUM CARBONATE 500 MG CHEWABLE PO SCH (08:19)
[2016-10-21] MEDS ORDERED: CALCITRIOL 0.25 MCG CAP PO SCH (09:00)
--- NOTE | 2016-10-21 09:21 | P.PN ---
Subjective Patient is seen in follow-up for end-stage renal disease. She was maintained on peritoneal dialysis and has now been transitioned over to hemodialysis. Patient presented with generalized weakness along with nausea and vomiting. She is also fluid overloaded which is improving with hemodialysis. Nausea and vomiting are significantly improved and she is now tolerating oral intake as well. No overnight events. Vital signs are stable. General: The patient appeared well nourished and normally developed. HEENT: Head exam is unremarkable. Neck is without jugular venous distension. LUNGS: Lungs are clear to auscultation and percussion. Breath sounds decreased. HEART: Rate and Rhythm are regular. First and second heart sounds normal. No murmurs, rubs or gallops. ABDOMEN: Abdominal exam reveals normal bowel sounds. Moderately distended. No evidence of peritonitis. EXTREMITITES: 1+ edema. Objective - Vital Signs Vital signs: Vital Signs Temp 98.1 F 10/21/16 04:00 Pulse 97 10/21/16 04:00 Resp 18 10/21/16 04:00 BP 159/93 10/21/16 04:00 Pulse Ox 94 L 10/21/16 04:00 Intake & Output 10/20/16 10/21/16 10/21/16 18:59 06:59 18:59 Intake Total 460 Output Total 200 Balance 260 Weight 70 kg Intake: Oral 460 Output: Urine 200 Other: Voiding Method Toilet Toilet # Voids 1 0 # Emeses 0 - Labs CBC & Chem 7: 10/15/16 19:20 10/21/16 06:32 Labs: Abnormal Lab Results - Last 24 Hours (Table) 10/20/16 10/21/16 Range/Units 11:55 06:32 Chloride 110 H (98-107) mmol/L Creatinine 2.52 H (0.52-1.04) mg/dL POC Glucose (mg/dL) 109 H (75-99) mg/dL Calcium 7.6 L (8.4-10.2) mg/dL Assessment and Plan Plan: Assessment: #1. End-stage renal disease now maintained on hemodialysis. Permacath placed October 17. #2. Hypokalemia secondary to poor nutritional status as well as peritoneal dialysis. Improved. Patient also had severely low magnesium level. #3. Hypocalcemia secondary to chronic kidney disease as well as hypoalbuminemia. Improved. #4. Volume overload. Improved. #5. Insulin-dependent diabetes mellitus. #6. Hypertension with chronic kidney disease. Controlled. Plan: Hemodialysis today with goal 2 liters ultrafiltration. Replace electrolytes as needed. Decrease calcitriol to 0.25 g Friday. Continue Tums for now. marine service manager to help facilitate outpatient hemodialysis. Will transition over back to peritoneal dialysis in about one month.
[2016-10-21] MEDS: cloNIDine HCL 0.1 MG TAB PO PRN (10:01)
[2016-10-21 11:37] LABS: Glucose,Whole Blood 105 mg/dL (75-99)
[2016-10-21 13:43] VITALS: BP 130/77; PULSE 95; TEMP 97.8
--- NOTE | 2016-10-21 14:14 | PN ---
DATE OF SERVICE: 10/20/2016 Interval history: Ms. Titus is a 41-year-old female with peritoneal dialysis is being switched to hemodialysis currently. Patient did have some nausea that is resolving slowly. Patient is able to tolerate almost 35% to 40% of her lunch this afternoon. She does not seem to be having any active complaints. REVIEW OF SYSTEMS: The patient denies having any fevers, chills, or rigors. No chest pain. No palpitations. No difficulty in breathing. No abdominal pain, vomiting, or diarrhea. Patient's medications have been reviewed. On examination, patient's vital signs temperature 98.1, heart rate 94, respiratory rate 18, blood pressure 144/84, saturating at 95% on room air. GENERAL: Comfortable, in no distress. HEAD: Pupils equal and reactive to light. EYES: Conjunctivae is normal. No pallor. NECK: No JVD. CARDIOVASCULAR: S1, S2 heard. RESPIRATORY: Bilateral breath sounds are positive. ABDOMEN: Soft. Bowel sounds positive. Peritoneal dialysis catheter in place. EXTREMITIES: No edema. No cyanosis. PSYCHIATRIC: Appropriate mood and affect. CONTINUOUS DRIER HELPER: No focal neurological deficits. Patient's labs: No new labs from this morning. ASSESSMENT AND PLAN: 1. Severe hypokalemia due to poor p.o. intake, which is improved. 2. Severe hypomagnesemia due to decreased p.o. intake that is improved, moderate to severe protein calorie malnutrition. 3. Acute fluid overload due to ineffective peritoneal dialysis. 4. Chronic kidney disease on peritoneal dialysis, that has been switched to hemodialysis for now. Patient did get three runs of dialysis and has a day off dialysis today. 5. Anemia of chronic kidney disease. 6. Hyperlipidemia. 7. Hypertension. 8. Nausea that is improving. PLAN: The plan is to continue the current medications and dialysis as per nephrology recommendations and continue with the rest of her current treatment plan. Further recommendations depending on the progress of the patient. MTDD
[2016-10-21] MEDS ORDERED: HEPARIN SODIUM,PORCINE 5,000 UNIT/ML 1 ML VIAL ONE (15:00)
[2016-10-21 15:31] VITALS: BMI 26.4
[2016-10-21 16:35] LABS: Glucose,Whole Blood 116 mg/dL (75-99)
--- NOTE | 2016-11-03 20:37 | PN ---
ADDENDUM/CORRECTION DATE OF SERVICE: 10/17/2016 ASSESSMENT: 1. Severe hypokalemia. This was initially present. Improved.
--- NOTE | 2016-11-19 09:21 | DS ---
DATE OF ADMISSION: 10/15/2016 DATE OF DISCHARGE: 10/21/2016 DATE OF SERVICE: 10/21/2016 HOSPITAL COURSE: Ms. Titus is a 41-year-old female with a past medical history of end-stage renal disease on peritoneal dialysis, hypertension, hyperlipidemia, admitted to the hospital with chief complaint of decreased appetite along with the nausea and vomiting which have been ongoing for the past few days. Patient's symptoms at the time of admission the patient was found to have severe hypokalemia and severe hypomagnesemia. So nephrology has been consulted. The patient has been given electrolyte supplements and her peritoneal dialysis has been changed to hemodialysis. Patient did show improvement in her symptoms with electrolyte supplementation and she was eventually change to hemodialysis. The patient was in fluid overload at the time of admission with bilateral lower extremity edema. She did show improvement in her symptoms with dialysis. As per immigration judge recommendation, the patient has been changed to outpatient hemodialysis and has been cleared by nephrology to be discharged home. PATIENT'S DISCHARGE DIAGNOSES: 1. Severe hypokalemia. 2. Severe hypomagnesemia. 3. Acute fluid overload due to an ineffective peritoneal dialysis. 4. Nausea and vomiting. 5. Anemia of chronic disease. 6. Hyperlipidemia. 7. Hypertension. Patient's discharge medications are: 1. Lantus 15 units subcu q.h.s. 2. Sodium bicarbonate 650 mg p.o. daily. 3. Calcitriol 0.25 mcg p.o. daily. 4. Lipitor 20 mg p.o. q.h.s. 5. Vitamin D2, 50,000 units p.o. every week. 6. Magnesium oxide 400 mg p.o.daily. 7. Loryna 3 mg/0.02 mg tablet 1 tablet p.o. daily. 8. Protonix 40 mg p.o. daily. 9. Metolazone 5 mg p.o. b.i.d. 10. Zofran 4 mg p.o. q.12 p.r.n. for nausea and vomiting. 11. Lasix 80 mg p.o. b.i.d. 12. Prinivil 5 mg p.o. b.i.d. 13. Metoclopramide 10 mg p.o. b.i.d. 14. Multivitamin 1 tablet p.o. daily. 15. Potassium chloride liquid 10 mEq p.o. daily. 16. Xanax q.4 hours p.r.n. for anxiety. 17. NovoLog sliding scale of insulin 3 units 3 times a day. The patient is being discharged to home in stable condition. Patient is advised to follow up with her primary care physician and was given an appointment with Dr. De Hopper on 10/25/2016 at 9:40 a.m. and she was also set up with outpatient hemodialysis at [facility] [place] and she was explained in detail the follow-up care. DIET: Diabetic diet. Activity as tolerated. More than 35 minutes spent towards the discharge of the patient. MTDD
== END 2016-10-21 17:55 | disposition home or self-care (01) | DRG 640 ==
LOC: EC 17:30 → 6SEL 20:01 → 4MS4W 21:23 → 6SEL 21:49
PROVIDERS: ADMIT Hospitalist; ATTEND Hospitalist
PROC: 5A1D60Z (ICD-10-PCS; 2016-10-17)
PROC: B543ZZA Ultrasonography of Right Jugular Veins, Guidance (ICD-10-PCS; principal; 2016-10-17 17:55)
PROC: 05HM33Z Insertion of Infusion Device into Right Internal Jugular Vein, Percutaneous Approach (ICD-10-PCS; principal; 2016-10-17 17:55)
DX: E87.6 Hypokalemia (principal); E43 Unspecified severe protein-calorie malnutrition; E86.0 Dehydration; I13.2 Hypertensive heart and chronic kidney disease with heart failure and with stage 5 chronic kidney disease, or end stage renal disease; E11.21 Type 2 diabetes mellitus with diabetic nephropathy; N18.6 End stage renal disease; K31.84 Gastroparesis; E11.43 Type 2 diabetes mellitus with diabetic autonomic (poly)neuropathy; E83.51 Hypocalcemia; T85.611A Breakdown (mechanical) of intraperitoneal dialysis catheter, initial encounter; D63.1 Anemia in chronic kidney disease; E11.22 Type 2 diabetes mellitus with diabetic chronic kidney disease; E78.5 Hyperlipidemia, unspecified; E83.42 Hypomagnesemia; I50.9 Heart failure, unspecified; K21.9 Gastro-esophageal reflux disease without esophagitis; K44.9 Diaphragmatic hernia without obstruction or gangrene; Y81.2 Prosthetic and other implants, materials and accessory general- and plastic-surgery devices associated with adverse incidents; Z79.4 Long term (current) use of insulin; Z79.899 Other long term (current) drug therapy; Z80.0 Family history of malignant neoplasm of digestive organs; Z96.1 Presence of intraocular lens; Z99.2 Dependence on renal dialysis
CPT/HCPCS: 36415; 36558; 71010; 80048; 80053; 80074; 82550; 82553; 83036; 83735; 84100; 84132; 85025; 89050; 90935; 93005; 94760; 96374; 99285

== ENCOUNTER 2016-11-11 12:02 | Emergency (ER) | payer BC ==
[2016-11-11] MEDS ORDERED: LISINOPRIL 10 MG TAB PO STA (12:41)
[2016-11-11] MEDS ORDERED: ACETAMINOPHEN TAB 500 MG TAB PO STA (12:43)
--- NOTE | 2016-11-11 12:45 | ED ---
General Adult HPI - General Chief complaint: Recheck/Abnormal Lab/Rx Stated complaint: High blood pressure Time Seen by Provider: 11/11/16 12:37 Source: patient, EMS, RN notes reviewed Mode of arrival: EMS Limitations: no limitations - History of Present Illness Initial comments: Patient is a pleasant 41-year-old female presenting to the emergency Department with complaints of high blood pressure. went to her primary care physician's office and was told her blood pressure was elevated systolic to 20. This was checked a couple of times. EMS also told patient and her blood pressure was high. Patient does have a history of hypertension. Patient is on dialysis. Patient does admit to having a mild headache which she states is not uncommon especially when her blood pressure runs high. No weakness or confusion. No speech problems or visual changes. - Related Data Home Medications Medication Instructions Recorded Confirmed Insulin Aspart [NovoLOG] 3 unit SQ AC-TID 12/24/13 11/11/16 Insulin Glargine [Lantus] 15 unit SQ HS 12/24/13 11/11/16 Sodium Bicarbonate Tab 650 mg PO DAILY 11/24/14 11/11/16 Calcitriol [Rocaltrol] 0.25 mcg PO DIRECTED 12/15/14 11/11/16 Atorvastatin Calcium [Lipitor] 20 mg PO HS 01/08/15 11/11/16 Ergocalciferol (Vitamin D2) 50,000 unit PO Q30D 01/08/15 11/11/16 [Drisdol] Magnesium Oxide [Mag-Ox] 400 mg PO TID 01/08/15 11/11/16 Midodrine [ProAmatine] 5 mg PO DAILY PRN 08/22/15 11/11/16 Ethinyl Estradiol/Drospirenone 1 tab PO DAILY 12/25/15 11/11/16 [Loryna 3 mg-0.02 mg Tablet] Pantoprazole [Protonix] 40 mg PO QAM 12/25/15 11/11/16 Metolazone 5 mg PO BID 04/04/16 11/11/16 Ondansetron Odt [Zofran ODT] 4 mg PO Q12HR PRN 04/04/16 11/11/16 Furosemide [Lasix] 80 mg PO BID 10/15/16 11/11/16 Lisinopril [Prinivil] 5 mg PO BID 10/15/16 11/11/16 Metoclopramide [Reglan] 10 mg PO BID 10/15/16 11/11/16 Multivitamins, Thera [Multivitamin 1 tab PO DAILY 10/15/16 11/11/16 (formulary)] Potassium Chloride Oral Liquid 10 meq PO HS 10/15/16 11/11/16 Potassium Chloride Oral Liquid 20 meq PO QAM 10/15/16 11/11/16 Sevelamer [Renvela] 800 mg PO AC-BID 10/15/16 11/11/16 Previous Rx's Medication Instructions Recorded cloNIDine HCL [Catapres] 0.1 mg PO Q4H PRN 30 Days 10/21/16 Allergies Allergy/AdvReac Type Severity Reaction Status Date / Time No Known Allergies Allergy Verified 11/11/16 13:09 Review of Systems ROS Statement: Those systems with pertinent positive or pertinent negative responses have been documented in the HPI. ROS Other: All systems not noted in ROS Statement are negative. Constitutional: Denies: fever Eyes: Denies: eye pain ENT: Denies: ear pain Respiratory: Denies: cough Cardiovascular: Denies: chest pain Endocrine: Denies: fatigue Gastrointestinal: Denies: abdominal pain Genitourinary: Denies: dysuria Musculoskeletal: Denies: back pain Skin: Denies: rash Neurological: Reports: headache Past Medical History Past Medical History: Heart Failure, Diabetes Mellitus, Dialysis, GERD/Reflux, Hyperlipidemia, Hypertension, Renal Disease Additional Past Medical History / Comment(s): Recent admission 10/21/15 with peritonitis, End stage RENAL FAILURE WITH PERITONEAL DIALYSIS. HX: CHF, bronchitis, respiratory failure due to sepsis and was vented once, IDDM type II , O2 1L/NC prn, diabetic neuropathy bilateral feet, UTI, anemia, hiatal hernia, [id number]."told in past i had ibs", migraines, akosua ower leg edema History of Any Multi-Drug Resistant Organisms: None Reported Past Surgical History: Bowel Resection, Breast Surgery, Cholecystectomy, Hernia Repair Additional Past Surgical History / Comment(s): R breast biopsy X 2 both benign. breast reduction. akosua cataracts removed/ lens implants. JANUARY 2015 HEMODIALYSIS CHEST CATHETER INSERTED AND REMOVED., PERITONEAL CATHETER INSERTED FEBRUARY 2015. Uumbilical hernia repair with ischemic bowel within-small resection. CoLnoscopy/EGD. 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 lives with spouse (1 pet dog)in a one level home with 1 step to get into home, has 02 1 liter if needed prn, peritoneal dialysis supplies. no home care services. Lifelong nonsmoker. No significant alcohol or recreational drug use. No experience. No recent animal exposures. Smoking Status: Never smoker Past Alcohol Use History: None Reported Past Drug Use History: None Reported - Past Family History Mother Family Medical History: Osteoarthritis (OA) Additional Family Medical History / Comment(s): Mother is living. Father Family Medical History: Cancer Additional Family Medical History / Comment(s): Father of LIVER cancer at age 61 yrs. General Exam Limitations: no limitations General appearance: alert, in no apparent distress Head exam: Present: atraumatic Eye exam: Present: normal appearance, PERRL, EOMI. Absent: nystagmus ENT exam: Present: normal oropharynx Neck exam: Present: normal inspection Respiratory exam: Present: normal lung sounds bilaterally Cardiovascular Exam: Present: regular rate, normal rhythm GI/Abdominal exam: Present: soft. Absent: tenderness Extremities exam: Present: normal inspection Neurological exam: Present: alert, CN II-XII intact. Absent: motor sensory deficit Expanded Speech: Present: fluid speech Cranial nerves: EOM's Intact: Normal, Facial Sensation: Normal Sensory exam: Upper Extremity Light Touch: Normal, Lower Extremity Light Touch: Normal Motor strength exam: RUE: 5, LUE: 5, RLE: 5, LLE: 5 Eye Response: (4) open spontaneously Motor Response: (6) obeys commands Verbal Response: (5) oriented Psychiatric exam: Present: normal affect, normal mood Skin exam: Absent: rash Course Vital Signs 11/11/16 11/11/16 11/11/16 12:04 12:30 13:00 Temperature 98.8 F Pulse Rate 97 95 97 Respiratory 18 18 20 Rate Blood Pressure 176/97 208/112 224/112 O2 Sat by Pulse 100 99 98 Oximetry 11/11/16 11/11/16 11/11/16 13:30 14:00 14:30 Temperature Pulse Rate 97 96 92 Respiratory 18 20 20 Rate Blood Pressure 217/116 222/117 209/120 O2 Sat by Pulse 99 99 98 Oximetry 11/11/16 11/11/16 11/11/16 15:00 15:27 16:13 Temperature Pulse Rate 91 97 92 Respiratory 20 18 16 Rate Blood Pressure 177/102 187/103 180/106 O2 Sat by Pulse 99 99 97 Oximetry 11/11/16 11/11/16 17:00 17:17 Temperature 97.7 F Pulse Rate 76 88 Respiratory 16 18 Rate Blood Pressure 169/72 166/91 O2 Sat by Pulse 96 98 Oximetry EKG Findings - EKG Comments: EKG Findings:: Normal sinus rhythm 95. CO 140. QRS 6. QT 346. QTc 457. Normal axis. Normal QRS. No acute ST change. Medical Decision Making - Medical Decision Making Patient reexamined and improved. Blood pressure 166/91. Patient symptom-free. Patient updated on results and need for follow-up. Patient advised to increase her lisinopril to 10 mg twice a day until follow-up. - Lab Data Result diagrams: 11/11/16 13:45 11/11/16 13:45 Lab Results 11/11/16 11/11/16 11/11/16 Range/Units 13:45 13:45 13:45 WBC 5.0 (3.8-10.6) k/uL RBC 4.18 (3.80-5.40) m/uL Hgb 11.1 L (11.4-16.0) gm/dL Hct 36.9 (34.0-46.0) % MCV 88.3 (80.0-100.0) fL MCH 26.6 (25.0-35.0) pg MCHC 30.1 L (31.0-37.0) g/dL RDW 17.8 H (11.5-15.5) % Plt Count 206 (150-450) k/uL Neutrophils % 61 % Lymphocytes % 28 % Monocytes % 6 % Eosinophils % 2 % Basophils % 1 % Neutrophils # 3.1 (1.3-7.7) k/uL Lymphocytes # 1.4 (1.0-4.8) k/uL Monocytes # 0.3 (0-1.0) k/uL Eosinophils # 0.1 (0-0.7) k/uL Basophils # 0.1 (0-0.2) k/uL Hypochromasia Moderate Anisocytosis Slight Sodium 137 (137-145) mmol/L Potassium 5.2 H (3.5-5.1) mmol/L Chloride 106 (98-107) mmol/L Carbon Dioxide 21 L (22-30) mmol/L Anion Gap 10 mmol/L BUN 47 H (7-17) mg/dL Creatinine 3.73 H (0.52-1.04) mg/dL Est GFR (MDRD) Af Amer 16 (>60 ml/min/1.73 sqM) Est GFR (MDRD) Non-Af 13 (>60 ml/min/1.73 sqM) Glucose 109 H (74-99) mg/dL Calcium 9.2 (8.4-10.2) mg/dL Magnesium 2.1 (1.6-2.3) mg/dL Total Bilirubin 0.5 (0.2-1.3) mg/dL AST 30 (14-36) U/L ALT 30 (9-52) U/L Alkaline Phosphatase 71 (38-126) U/L Troponin I <0.012 (0.000-0.034) ng/mL Total Protein 6.7 (6.3-8.2) g/dL Albumin 3.2 L (3.5-5.0) g/dL Disposition Clinical Impression: Hypertension Disposition: HOME SELF-CARE Condition: Stable Instructions: Hypertension (ED) Additional Instructions: Increased lisinopril dose to 10 mg twice a day until follow-up. Please keep a record of your blood pressure. Return for uncontrolled blood pressure, weakness or confusion, worsening symptoms or other concerns. Referrals: De Hopper MD [Primary Care Provider] - 1-2 days
[2016-11-11] MEDS: cloNIDine HCL 0.1 MG TAB PO STA ×2 (13:33→16:18)
--- NOTE | 2016-11-11 14:07 | XR ---
EXAMINATION TYPE: XR chest 2V DATE OF EXAM: 11/11/2016 2:02 PM COMPARISON: NONE TECHNIQUE: PA and lateral views submitted. HISTORY: htn FINDINGS: The lungs are clear and there is no pneumothorax, pleural effusion, or focal pneumonia. Dialysis ca theter noted. Surgical clips in the right upper quadrant. IMPRESSION: 1. No acute process.
[2016-11-11 14:29] LABS: Calcium 9.2 mg/dL (8.4-10.2); Magnesium 2.1 mg/dL (1.6-2.3); Potassium 5.2 mmol/L (3.5-5.1); Total Bilirubin 0.5 mg/dL (0.2-1.3); Total Protein 6.7 g/dL (6.3-8.2)
[2016-11-11 14:36] LABS: Anisocytosis Slight; Basophils # (A) 0.1 k/uL (0-0.2); Basophils % (A) 1 %; CH 26.6; CHCM 30.2; Eosinophils # (A) 0.1 k/uL (0-0.7); Eosinophils % (A) 2 %; HCT 36.9 % (34.0-46.0); HDW 2.49; HGB 11.1 gm/dL (11.4-16.0); Hypochromasia Moderate; Luc # (Auto) 0.11; Luc % (Auto) 2; Lymphocytes # (A) 1.4 k/uL (1.0-4.8); Lymphocytes % (A) 28 %; MCH 26.6 pg (25.0-35.0); MCHC 30.1 g/dL (31.0-37.0); MCV 88.3 fL (80.0-100.0); Mean Platelet Volume 7.6; Monocytes # (A) 0.3 k/uL (0-1.0); Monocytes % (A) 6 %; Neutrophils # (A) 3.1 k/uL (1.3-7.7); Neutrophils % (A) 61 %; RBC 4.18 m/uL (3.80-5.40); RDW 17.8 % (11.5-15.5); WBC (Perox) 5.03
[2016-11-11] MEDS ORDERED: ENALAPRILAT 1.25 MG/ML 1 ML VIAL IVP STA ×2 (14:49→15:28)
[2016-11-11] MEDS ORDERED: LISINOPRIL 5 MG TAB PO STA (16:05)
[2016-11-11 17:38] VITALS: BP 158/92; PULSE 80; RESP 16; TEMP 98
== END 2016-11-11 17:39 | disposition home or self-care (01) ==
LOC: EC 12:02
DX: I13.2 Hypertensive heart and chronic kidney disease with heart failure and with stage 5 chronic kidney disease, or end stage renal disease (principal); N18.6 End stage renal disease; I50.9 Heart failure, unspecified; R51 Headache; E11.9 Type 2 diabetes mellitus without complications; K21.9 Gastro-esophageal reflux disease without esophagitis; E78.5 Hyperlipidemia, unspecified; Z99.2 Dependence on renal dialysis; Z79.4 Long term (current) use of insulin; Z79.899 Other long term (current) drug therapy
CPT/HCPCS: 36415; 71020; 80053; 83735; 84484; 85025; 93005; 96374; 96376; 99284

== ENCOUNTER 2016-12-04 07:06 | Day surgery (SDC) | payer BC ==
--- NOTE | 2016-11-29 17:18 | P.GSHP ---
History of Present Illness H&P Date: 11/29/16 Chief Complaint: Renal failure Patient is well-known to our service. She had 2 separate catheters placed in the past most recently in December 2015. Recently we were contacted for surgical removal of her indwelling peritoneal catheter. Past Medical History Past Medical History: Heart Failure, Diabetes Mellitus, Dialysis, GERD/Reflux, Hyperlipidemia, Hypertension, Renal Disease Additional Past Medical History / Comment(s): Recent admission 10/21/15 with peritonitis, End stage RENAL FAILURE WITH PERITONEAL DIALYSIS. HX: CHF, bronchitis, respiratory failure due to sepsis and was vented once, IDDM type II , O2 1L/NC prn, diabetic neuropathy bilateral feet, UTI, anemia, hiatal hernia, [id number]."told in past i had ibs", migraines, akosua ower leg edema History of Any Multi-Drug Resistant Organisms: None Reported Past Surgical History: Bowel Resection, Breast Surgery, Cholecystectomy, Hernia Repair Additional Past Surgical History / Comment(s): R breast biopsy X 2 both benign. breast reduction. akosua cataracts removed/ lens implants. JANUARY 2015 HEMODIALYSIS CHEST CATHETER INSERTED AND REMOVED., PERITONEAL CATHETER INSERTED FEBRUARY 2015. Uumbilical hernia repair with ischemic bowel within-small resection. CoLnoscopy/EGD. 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 lives with spouse (1 pet dog)in a one level home with 1 step to get into home, has 02 1 liter if needed prn, peritoneal dialysis supplies. no home care services. Lifelong nonsmoker. No significant alcohol or recreational drug use. No experience. No recent animal exposures. Smoking Status: Never smoker Past Alcohol Use History: None Reported Past Drug Use History: None Reported - Past Family History Mother Family Medical History: Osteoarthritis (OA) Additional Family Medical History / Comment(s): Mother is living. Father Family Medical History: Cancer Additional Family Medical History / Comment(s): Father of LIVER cancer at age 61 yrs. Medications and Allergies Home Medications Medication Instructions Recorded Confirmed Type Insulin Aspart [NovoLOG] 3 unit SQ AC-TID 12/24/13 11/11/16 History Insulin Glargine [Lantus] 15 unit SQ HS 12/24/13 11/11/16 History Sodium Bicarbonate Tab 650 mg PO DAILY 11/24/14 11/11/16 History Calcitriol [Rocaltrol] 0.25 mcg PO DIRECTED 12/15/14 11/11/16 History Atorvastatin Calcium [Lipitor] 20 mg PO HS 01/08/15 11/11/16 History Ergocalciferol (Vitamin D2) 50,000 unit PO Q30D 01/08/15 11/11/16 History [Drisdol] Magnesium Oxide [Mag-Ox] 400 mg PO TID 01/08/15 11/11/16 History Midodrine [ProAmatine] 5 mg PO DAILY PRN 08/22/15 11/11/16 History Ethinyl Estradiol/Drospirenone 1 tab PO DAILY 12/25/15 11/11/16 History [Loryna 3 mg-0.02 mg Tablet] Pantoprazole [Protonix] 40 mg PO QAM 12/25/15 11/11/16 History Metolazone 5 mg PO BID 04/04/16 11/11/16 History Ondansetron Odt [Zofran ODT] 4 mg PO Q12HR PRN 04/04/16 11/11/16 History Furosemide [Lasix] 80 mg PO BID 10/15/16 11/11/16 History Lisinopril [Prinivil] 5 mg PO BID 10/15/16 11/11/16 History Metoclopramide [Reglan] 10 mg PO BID 10/15/16 11/11/16 History Multivitamins, Thera [Multivitamin 1 tab PO DAILY 10/15/16 11/11/16 History (formulary)] Potassium Chloride Oral Liquid 10 meq PO HS 10/15/16 11/11/16 History Potassium Chloride Oral Liquid 20 meq PO QAM 10/15/16 11/11/16 History Sevelamer [Renvela] 800 mg PO AC-BID 10/15/16 11/11/16 History Allergies Allergy/AdvReac Type Severity Reaction Status Date / Time No Known Allergies Allergy Verified 11/11/16 13:09 Surgical - Exam Exam deferred until surgical procedure Assessment and Plan (1) Chronic renal failure Narrative/Plan: We'll proceed with catheter removal on 12/04. Risks of bleeding, infection, bowel injury will be discussed with the patient Preoperatively. Status: Acute
[2016-12-03 09:50] VITALS: BMI 24.4
[~2016-12-04 07:06] MED LIST: HEPARIN SODIUM,PORCINE 5,000 UNIT/ML 1 ML VIAL SQ ONE; HYDROmorphone 1 MG/ML 1 ML SYRINGE IVP PRN; LACTATED RINGERS 1,000 ML IV SCH; LIDOCAINE 1% 20 ML VIAL (10MG/ML) FOR IV START INTRADERMA PRN; MIDAZOLAM 2 MG/2 ML VIAL IV PRN; ONDANSETRON 4 MG/2 ML VIAL IVP PRN
[2016-12-04 07:25] VITALS: TEMP 98.5
[2016-12-04 07:35] LABS: Glucose,Whole Blood 111 mg/dL (75-99)
[2016-12-04] MEDS ORDERED: DEXAMETHASONE SOD PHOSPHATE 10 MG/ML 1 ML VIAL IV ONE (07:41)
[2016-12-04] MEDS ORDERED: SCOPOLAMINE 1.5MG/72HR PATCH TRANSDERM ONE (07:42)
[2016-12-04] MEDS ORDERED: BUPIVACAIN-EPI 0.25%-1:200,000 30 ML VIAL SQ ONE ×3 (07:50→08:29)
--- NOTE | 2016-12-04 07:58 | P.HPADDEND ---
H&P Addendum H&P Addendum Date: 12/04/16 Physical exam: General: Well-developed, well-nourished HEENT: Normocephalic, sclerae nonicteric Abdomen: Nontender, nondistended Extremities: No edema Neuro: Alert and oriented
[2016-12-04] MEDS ORDERED: MIDAZOLAM 2 MG/2 ML VIAL ONE (08:15)
[2016-12-04] MEDS ORDERED: PROPOFOL 10 MG/ML 20 ML VIAL IV ONE (08:15)
[2016-12-04] MEDS ORDERED: fentaNYL (PF) 50 MCG/ML 2 ML AMP ONE (08:15)
[2016-12-04] MEDS: ceFAZolin 2 GM in SODIUM CHLORIDE 0.9% 100 ML IVPB ONE ×2 (08:15→08:50)
[2016-12-04] MEDS ORDERED: LIDOCAINE 1% INJ 10MG/ML (20 ML MDV) ONE (08:15)
[2016-12-04 09:15] LABS: Glucose,Whole Blood 141 mg/dL (75-99)
[2016-12-04] MEDS ORDERED: NALOXONE 0.4 MG/ML 1 ML VIAL IV PRN (09:38)
[2016-12-04] MEDS ORDERED: HYDROcodone/APAP 5-325MG 1 EACH TAB PO PRN (09:38)
--- NOTE | 2016-12-04 09:40 | P.PCN ---
Date of Procedure: 12/04/16 Procedure(s) Performed: PREOPERATIVE DIAGNOSIS: Renal failure POSTOPERATIVE DIAGNOSIS: Same PROCEDURE: PD cath removal SURGEON: Lauren EBL: 2 mL ANESTHESIA: Sedation and local COMPLICATIONS: None OPERATIVE PROCEDURE: Patient was placed in the supine position. The abdomen was prepped and draped in usual sterile fashion. The previous paramedian incision was re-incised after localizing the skin. The subcutaneous tissues were divided using electrocautery. Blunt dissection around the cuff that was present at the fascia and peritoneum took place. The cuff was fully mobilized. The catheter was removed from the perineal cavity. The outer cuff was dissected from the saphenous fascia using electrocautery. The catheter was cut on the other side of that cuff and the catheter was removed. The fascial defect was closed using a single [id number] 0 Vicryl stitch. The subcutaneous tissues were closed using 3-0 Vicryl sutures and the skin using 4- 0 Monocryl sutures. Steri-Strips and sterile dressings were applied. DISPOSITION: Stable to recovery room
[2016-12-04] MEDS ORDERED: HYDROcodone/APAP 5-325MG 1 EACH TAB PO ONE (10:06)
[2016-12-04 10:45] VITALS: BP 146/87; PULSE 90; RESP 16
== END 2016-12-04 11:06 | disposition home or self-care (01) ==
LOC: OR 07:06
PROVIDERS: ATTEND Surgery
DX: N18.6 End stage renal disease (principal); I11.0 Hypertensive heart disease with heart failure; I50.9 Heart failure, unspecified; E11.40 Type 2 diabetes mellitus with diabetic neuropathy, unspecified; Z79.4 Long term (current) use of insulin; K21.9 Gastro-esophageal reflux disease without esophagitis; E78.5 Hyperlipidemia, unspecified; Z79.899 Other long term (current) drug therapy
CPT/HCPCS: 81025; 49422; J2250; J1644; J1100; J0690; J2405; J3010; J2001; J2704

== ENCOUNTER 2017-04-03 15:26 | Emergency (ER) | payer BC ==
[2017-04-03] MEDS ORDERED: HYDROmorphone 1 MG/ML 1 ML SYRINGE IVP STA (16:01)
[2017-04-03] MEDS ORDERED: SODIUM CHLORIDE 0.9% 1,000 ML IV STA ×2 (16:01)
[2017-04-03] MEDS ORDERED: ONDANSETRON 4 MG/2 ML VIAL IVP STA (16:01)
--- NOTE | 2017-04-03 16:01 | ED ---
Abdominal Pain HPI - General Chief Complaint: Abdominal Pain Stated Complaint: Lower abd pain Time Seen by Provider: 04/03/17 15:45 Source: patient, RN notes reviewed, old records reviewed Mode of arrival: ambulatory Limitations: no limitations - History of Present Illness Initial Comments: This is a 42-year-old female presenting to emergency Department chief complaint of right lower quadrant pain for the past day. Patient which she also feels extremely nauseated. She denies a specific fever but does feel chilled. Patient has a medical history of renal failure which she completed dialysis on Friday and Friday. She did go yesterday. Patient states that she's had no abnormal bowel movements, denies any blood in her ear vomit. Patient states that the pain seems to be worse with certain movements. Denies any history of ovarian cysts or menorrhagia. Patient reports that her surgical histories include cholecystectomy, hernia repair, bowel resection, peritoneal dialysis. - Related Data Home Medications Medication Instructions Recorded Confirmed Insulin Aspart [NovoLOG] 3 unit SQ AC-TID 12/24/13 04/03/17 Atorvastatin Calcium [Lipitor] 20 mg PO HS 01/08/15 04/03/17 Ergocalciferol (Vitamin D2) 50,000 unit PO Q30D 01/08/15 04/03/17 [Drisdol] Magnesium Oxide [Mag-Ox] 400 mg PO TID 01/08/15 04/03/17 Pantoprazole [Protonix] 40 mg PO QAM 12/25/15 04/03/17 Metolazone 5 mg PO BID 04/04/16 04/03/17 Lisinopril [Prinivil] 5 mg PO BID 10/15/16 04/03/17 Potassium Chloride [K-Tab ER] 10 meq PO HS 12/03/16 04/03/17 Acetaminophen with Codeine 1 tab PO Q8H PRN 04/03/17 04/03/17 [Tylenol w/codeine #3] Ciprofloxacin HCl [Cipro] 500 mg PO Q12HR 04/03/17 04/03/17 Lidocaine-Prilocaine Cream [Emla 1 applic TOPICAL MOWEFR 04/03/17 04/03/17 Cream 2.5%/2.5%] Previous Rx's Medication Instructions Recorded HYDROcodone/APAP 5-325MG [[place] 1 tab PO Q6HR PRN #10 tab 04/03/17 5-325] Ondansetron Odt [Zofran Odt] 4 mg PO Q8HR PRN #12 tab 04/03/17 Allergies Allergy/AdvReac Type Severity Reaction Status Date / Time No Known Allergies Allergy Verified 04/03/17 17:03 Review of Systems ROS Statement: Those systems with pertinent positive or pertinent negative responses have been documented in the HPI. ROS Other: All systems not noted in ROS Statement are negative. Past Medical History Past Medical History: Heart Failure, Diabetes Mellitus, Dialysis, GERD/Reflux, Hyperlipidemia, Hypertension, Renal Disease Additional Past Medical History / Comment(s): Recent admission 10/21/15 with peritonitis, End stage RENAL FAILURE WITH CURRENT HEMODIALYSIS, MON,WED,FRI. respiratory failure due to sepsis and was vented once,O2 1L/NC prn, diabetic neuropathy bilateral feet, anemia, hiatal hernia, [id number]."told in past i had ibs", migraines, History of Any Multi-Drug Resistant Organisms: None Reported Past Surgical History: Bowel Resection, Breast Surgery, Cholecystectomy, Hernia Repair Additional Past Surgical History / Comment(s): R breast biopsy X 2 both benign. breast reduction. akosua cataracts removed/ lens implants. HAS HAD 2 PERITONEAL DIALYSIS CATHETERS, AND 3 HEMODIALYSIS CATHETHERS. Umbilical hernia repair with ischemic bowel within-small resection. CoLnoscopy/EGD. Past Anesthesia/Blood Transfusion Reactions: Motion Sickness, Postoperative Nausea & Vomiting (PONV) Additional Past Anesthesia/Blood Transfusion Reaction / Comment(s): no blood products-pt is a denominational Past Psychological History: No Psychological Hx Reported Smoking Status: Never smoker Past Alcohol Use History: Occasional Past Drug Use History: None Reported - Past Family History Mother Family Medical History: Osteoarthritis (OA) Additional Family Medical History / Comment(s): Mother is living. Father Family Medical History: Cancer Additional Family Medical History / Comment(s): Father of LIVER cancer at age 61 yrs. General Exam - General Exam Comments Initial Comments: This is a 42-year-old female. Patient appears in some moderate discomfort. Limitations: no limitations General appearance: alert, in no apparent distress Head exam: Present: atraumatic, normocephalic, normal inspection Eye exam: Present: normal appearance, PERRL, EOMI. Absent: scleral icterus, conjunctival injection, periorbital swelling ENT exam: Present: normal exam, mucous membranes moist Neck exam: Present: normal inspection. Absent: tenderness, meningismus, lymphadenopathy Respiratory exam: Present: normal lung sounds bilaterally. Absent: respiratory distress, wheezes, rales, rhonchi, stridor Cardiovascular Exam: Present: regular rate, normal rhythm, normal heart sounds. Absent: systolic murmur, diastolic murmur, rubs, gallop, clicks GI/Abdominal exam: Present: soft, normal bowel sounds. Absent: distended, tenderness, guarding, rebound, rigid Extremities exam: Present: normal inspection, full ROM, normal capillary refill. Absent: tenderness, pedal edema, joint swelling, calf tenderness Course Vital Signs 04/03/17 04/03/17 04/03/17 15:36 17:00 18:45 Temperature 98.5 F Pulse Rate 80 89 78 Respiratory 20 18 16 Rate Blood Pressure 141/73 139/67 118/78 O2 Sat by Pulse 98 97 99 Oximetry 04/03/17 19:16 Temperature 97.9 F Pulse Rate 93 Respiratory 16 Rate Blood Pressure 174/87 O2 Sat by Pulse 97 Oximetry Medical Decision Making - Medical Decision Making -year-old female history of dialysis presents emergency department with right lower quadrant abdominal pain for the past day. Patient was vomiting upon arriving to the emergency department. Labwork was reviewed and negative for any acute process. Patient does have some evidence of chronic renal failure. She is given CT abdomen and pelvis with contrast due to significant pain and tenderness over the right lower quadrant. Evidence of a 5 cm right ovarian cyst. Transvaginal ultrasound obtained. Ultrasound was negative for any signs of ovarian torsion. Patient will be discharged with time with MANAGER [facility]INO follow-up. Discussed that she needs to complete her dialysis tomorrow as scheduled. Discussed that I will write the patient for pain medication nausea medication. Patient advised to return to this emergency department if any worsening signs symptoms occur including worsening pain or severe fevers. Patient understood history plan will comply. Return parameters were discussed. - Lab Data Result diagrams: 04/03/17 16:30 04/03/17 16:30 Lab Results 04/03/17 04/03/17 04/03/17 Range/Units 16:30 16:30 16:30 WBC 5.9 (3.8-10.6) k/uL RBC 4.58 (3.80-5.40) m/uL Hgb 12.9 (11.4-16.0) gm/dL Hct 40.5 (34.0-46.0) % MCV 88.5 (80.0-100.0) fL MCH 28.1 (25.0-35.0) pg MCHC 31.8 (31.0-37.0) g/dL RDW 16.5 H (11.5-15.5) % Plt Count 187 (150-450) k/uL Neutrophils % 67 % Lymphocytes % 20 % Monocytes % 8 % Eosinophils % 2 % Basophils % 1 % Neutrophils # 3.9 (1.3-7.7) k/uL Lymphocytes # 1.2 (1.0-4.8) k/uL Monocytes # 0.5 (0-1.0) k/uL Eosinophils # 0.1 (0-0.7) k/uL Basophils # 0.0 (0-0.2) k/uL Hypochromasia Slight Anisocytosis Slight Sodium 138 (137-145) mmol/L Potassium 4.8 (3.5-5.1) mmol/L Chloride 99 (98-107) mmol/L Carbon Dioxide 28 (22-30) mmol/L Anion Gap 11 mmol/L BUN 22 H (7-17) mg/dL Creatinine 4.72 H (0.52-1.04) mg/dL Est GFR (MDRD) Af Amer 12 (>60 ml/min/1.73 sqM) Est GFR (MDRD) Non-Af 10 (>60 ml/min/1.73 sqM) Glucose 111 H (74-99) mg/dL Plasma Lactic Acid Mic 1.4 (0.7-2.0) mmol/L Calcium 9.4 (8.4-10.2) mg/dL Total Bilirubin 0.5 (0.2-1.3) mg/dL AST 25 (14-36) U/L ALT 26 (9-52) U/L Alkaline Phosphatase 72 (38-126) U/L Total Protein 7.5 (6.3-8.2) g/dL Albumin 4.0 (3.5-5.0) g/dL Amylase 96 (30-110) U/L Lipase 85 (23-300) U/L Urine Color Urine Appearance (Clear) Urine pH (5.0-8.0) Ur Specific [place] (1.001-1.035) Urine Protein (Negative) Urine Glucose (UA) (Negative) Urine Ketones (Negative) Urine Blood (Negative) Urine Nitrite (Negative) Urine Bilirubin (Negative) Urine Urobilinogen (<2.0) mg/dL Ur Leukocyte Esterase (Negative) Urine RBC (0-5) /hpf Urine WBC (0-5) /hpf Ur Squamous Epith Cells (0-4) /hpf 04/03/17 Range/Units 16:30 WBC (3.8-10.6) k/uL RBC (3.80-5.40) m/uL Hgb (11.4-16.0) gm/dL Hct (34.0-46.0) % MCV (80.0-100.0) fL MCH (25.0-35.0) pg MCHC (31.0-37.0) g/dL RDW (11.5-15.5) % Plt Count (150-450) k/uL Neutrophils % % Lymphocytes % % Monocytes % % Eosinophils % % Basophils % % Neutrophils # (1.3-7.7) k/uL Lymphocytes # (1.0-4.8) k/uL Monocytes # (0-1.0) k/uL Eosinophils # (0-0.7) k/uL Basophils # (0-0.2) k/uL Hypochromasia Anisocytosis Sodium (137-145) mmol/L Potassium (3.5-5.1) mmol/L Chloride (98-107) mmol/L Carbon Dioxide (22-30) mmol/L Anion Gap mmol/L BUN (7-17) mg/dL Creatinine (0.52-1.04) mg/dL Est GFR (MDRD) Af Amer (>60 ml/min/1.73 sqM) Est GFR (MDRD) Non-Af (>60 ml/min/1.73 sqM) Glucose (74-99) mg/dL Plasma Lactic Acid Mic (0.7-2.0) mmol/L Calcium (8.4-10.2) mg/dL Total Bilirubin (0.2-1.3) mg/dL AST (14-36) U/L ALT (9-52) U/L Alkaline Phosphatase (38-126) U/L Total Protein (6.3-8.2) g/dL Albumin (3.5-5.0) g/dL Amylase (30-110) U/L Lipase (23-300) U/L Urine Color Yellow Urine Appearance Turbid H (Clear) Urine pH 8.0 (5.0-8.0) Ur Specific [place] 1.012 (1.001-1.035) Urine Protein 3+ H (Negative) Urine Glucose (UA) Negative (Negative) Urine Ketones Negative (Negative) Urine Blood Trace H (Negative) Urine Nitrite Negative (Negative) Urine Bilirubin Negative (Negative) Urine Urobilinogen <2.0 (<2.0) mg/dL Ur Leukocyte Esterase Trace H (Negative) Urine RBC 3 (0-5) /hpf Urine WBC 12 H (0-5) /hpf Ur Squamous Epith Cells 205 H (0-4) /hpf - Radiology Data Radiology results: report reviewed CT abdomen and pelvis shows evidence of 5 cm right ovarian cyst. No evidence of any other abnormality's. Transvaginal ultrasound obtained. Evidence of complex right-sided cyst. No evidence of ovarian torsion. Disposition Clinical Impression: Right ovarian cyst, Chronic renal failure Disposition: HOME SELF-CARE Condition: Good Instructions: Ovarian Cyst (ED) Additional Instructions: Patient advised to follow-up with primary care provider and MANAGER CASINO. Patient is to go to dialysis tomorrow. Return to the emergency department if any alarming signs or symptoms occur. Prescriptions: HYDROcodone/APAP 5-325MG [[place] 5-325] 1 tab PO Q6HR PRN #10 tab PRN Reason: Pain Ondansetron Odt [Zofran Odt] 4 mg PO Q8HR PRN #12 tab PRN Reason: Nausea Referrals: De Hopper MD [Primary Care Provider] - 1-2 days Asa Cuellar DO [Doctor of Osteopathic Medicine] - 1-2 days Time of Disposition: 19:20
[2017-04-03] MEDS ORDERED: RX INFO: IV CONTRAST WAS GIVEN 1 EACH MISC MISCELLANE PRN (16:02)
[2017-04-03 16:49] LABS: Anisocytosis Slight; Basophils % (A) 1 %; CH 27.3; CHCM 30.9; Eosinophils # (A) 0.1 k/uL (0-0.7); Eosinophils % (A) 2 %; HCT 40.5 % (34.0-46.0); HDW 2.44; HGB 12.9 gm/dL (11.4-16.0); Hypochromasia Slight; Luc # (Auto) 0.19; Luc % (Auto) 3; Lymphocytes # (A) 1.2 k/uL (1.0-4.8); Lymphocytes % (A) 20 %; MCH 28.1 pg (25.0-35.0); MCHC 31.8 g/dL (31.0-37.0); MCV 88.5 fL (80.0-100.0); Mean Platelet Volume 7.7; Monocytes # (A) 0.5 k/uL (0-1.0); Monocytes % (A) 8 %; Neutrophils # (A) 3.9 k/uL (1.3-7.7); Neutrophils % (A) 67 %; RBC 4.58 m/uL (3.80-5.40); RDW 16.5 % (11.5-15.5); WBC 5.9 k/uL (3.8-10.6); WBC (Perox) 6.06
[2017-04-03 16:56] LABS: Calcium 9.4 mg/dL (8.4-10.2); Potassium 4.8 mmol/L (3.5-5.1); Total Bilirubin 0.5 mg/dL (0.2-1.3); Total Protein 7.5 g/dL (6.3-8.2)
[2017-04-03 17:17] LABS: Appearance,Urine Turbid (Clear); Bilirubin,Urine Negative (Negative); Glucose,Urine (UA) Negative (Negative); Ketones,Urine Negative (Negative); Leukocyte Esterase,Urine Trace (Negative); Nitrite,Urine Negative (Negative); Particle Count 32055; Protein,Urine 3+ (Negative); RBC,Urine 3 /hpf (0-5); Specific Gravity,Urine 1.012 (1.001-1.035); Squamous Epithelial Cell,Urine 205 /hpf (0-4); UA Billing (MACRO vs. MICRO) MICRO; Urobilinogen,Urine <2.0 mg/dL (<2.0); WBC,Urine 12 /hpf (0-5)
--- NOTE | 2017-04-03 18:14 | CT ---
EXAMINATION TYPE: CT abdomen pelvis w con DATE OF EXAM: 04/03/2017 COMPARISON: 10/20/2015 HISTORY: RLQ pain with nausea and vomiting CT DLP: 380.7 mGycm Automated exposure control for dose reduction was used. TECHNIQUE: Helical acquisition of images was performed from the lung bases through the pelvis. CONTRAST: Performed without Oral Contrast and with IV Contrast, patient injected with 100 mL of Omnipaque 300. FINDINGS: Lung bases are clear of consolidation. Heart appears enlarged. There is no pleural effusion. There are clips from cholecystectomy. Liver shows no focal defect. Bile ducts are not dilated. Spleen and pancreas appear normal. There is no adrenal mass. Kidneys show satisfactory contrast opacification. There is no hydronephrosis. There is no retroperito sylvester adenopathy. I see no intestinal wall thickening. There are no dilated loops. Appendix appears no rmal. The urinary bladder shows wall thickening. This measures up to 8 mm. There is a 3.5 x 5 cm cyst on the right ovary. There is no free fluid in the pelvis. I see no bony destructive process. There a re some clips in the left mid abdomen apparently from previous bowel surgery. IMPRESSION: RIGHT OVARIAN CYST. THERE IS CLEARING OF THE FLUID IN THE ABDOMEN COMPARED TO OLD EXAM AND REMOVAL OF THE DRAINAGE CATHETER IN THE PELVIS. THE RIGHT OVARIAN CYST APPEARS NEW COMPARED TO OLD EXAM. CARDIO MEGALY. THERE IS URINARY BLADDER WALL THICKENING THAT COULD RELATE TO NONSPECIFIC CYSTITIS.
[2017-04-03 18:46] VITALS: RESP 16
--- NOTE | 2017-04-03 19:15 | US ---
EXAMINATION TYPE: US transvaginal DATE OF EXAM: 04/03/2017 COMPARISON: NONE CLINICAL HISTORY: Pain. RLQ pain TECHNIQUE: Transvaginal (TV) Date of LMP: 03/19/2017 EXAM MEASUREMENTS: Uterus: 7.5 x 3.4 x 4.1 cm Endometrial Stripe: 0.49 cm Right Ovary: 5.9 x 3.7 x 4.1 cm Left Ovary: 2.8 x 1.6 x 2.6 cm 1. Uterus: Anteverted wnl 2. Endometrium: wnl 3. Right Ovary: wnl 4. Left Ovary: wnl Spectral, color and waveform doppler imaging shows good arterial and venous flow within the ovaries ; there is no evidence for ovarian torsion. 5. Bilateral Adnexa: wnl 6. Posterior cul-de-sac: wnl Heterogenous complex area seen right ovary measuring 2.6 x 3.3 x 3.5 cm IMPRESSION: No evidence of ovarian torsion. There is a complex right ovarian cyst. Normal uterus.
[2017-04-03 19:18] VITALS: BP 174/87; PULSE 93; TEMP 97.9
[2017-04-03] MEDS ORDERED: MORPHINE SULFATE 2 MG/ML SYRINGE IVP ONE (19:19)
== END 2017-04-03 19:50 | disposition home or self-care (01) ==
LOC: EC 15:26
DX: N83.201 Unspecified ovarian cyst, right side (principal); K21.9 Gastro-esophageal reflux disease without esophagitis; E78.5 Hyperlipidemia, unspecified; E11.22 Type 2 diabetes mellitus with diabetic chronic kidney disease; I13.0 Hypertensive heart and chronic kidney disease with heart failure and stage 1 through stage 4 chronic kidney disease, or unspecified chronic kidney disease; N18.9 Chronic kidney disease, unspecified; Z79.4 Long term (current) use of insulin; Z79.899 Other long term (current) drug therapy
CPT/HCPCS: 36415; 80053; 82150; 83605; 83690; 85025; 81001; 87040; 93975; 76830; 74177; 99284; 96374; 96375 ×2; 96361 ×2; J2405; J2270; J1170; Q9967

== ENCOUNTER → 2017-06-20 | Outpatient (CLI) | payer BC ==
--- NOTE | 2017-06-20 09:28 | CT ---
EXAMINATION TYPE: CT brain wo con DATE OF EXAM: 06/20/2017 COMPARISON: NONE HISTORY: Migraines and r/o brain tumor CT DLP: 1121 mGycm. Automated Exposure Control for Dose Reduction was Utilized. TECHNIQUE: CT scan of the head is performed without contrast. Multiple attempts to obtain an IV were obtained, however attempts were unsuccessful and therefore the exam was performed without intravenous contrast. FINDINGS: There is no acute intracranial hemorrhage, mass effect, or midline shift identified. The ventricles and sulci are within normal limits in size. Inspissated mucosal thickening is seen withi n the sphenoid sinuses. Incidental note is made of chase bullosa. Scant mucosal thickening is also s een within the frontal sinuses. Mild leftward nasal septal deviation is noted. Probable antrostomy de fects are noted. The globes are intact and the remaining visualized sinuses are clear. Old fracture o f the inferior left orbital wall is seen with herniation of intraorbital fat orbital defect within th e inferior wall measuring 9 mm. Inferior rectus muscle is not entrapped on the current examination. N o suspicious vasogenic edema is seen. Rogers-white matter appears preserved. No suspicious extra-axial fluid collections. IMPRESSION: 1. No acute intracranial hemorrhage, mass effect, or midline shift is seen. 2. No vasogenic edema to indicate large or compressive intracranial neoplasm, however slow-growing or small intracranial neoplasms are not excluded without contrast. If there is further concern enhanced MR could be performed. 3. Paranasal sinus disease within the sphenoid and frontal sinuses, mild in degree. 4. Old fracture of the inferior orbital wall on the left with herniation of intraorbital fat and with out entrapment of the inferior rectus musculature.
== END | disposition home or self-care (01) ==
LOC: RADCTMAIN 07:25
PROVIDERS: ATTEND Psychiatry & Neurology Neurology
DX: D49.6 Neoplasm of unspecified behavior of brain (principal)
CPT/HCPCS: 70450

== ENCOUNTER → 2017-12-30 | Outpatient (CLI) | payer MEDICARE, BC ==
--- NOTE | 2017-12-30 08:36 | US ---
EXAMINATION TYPE: US abdomen complete DATE OF EXAM: 12/30/2017 COMPARISON: 06/13/2016 CLINICAL HISTORY: Abdominal pain R10.9. h/o cholecystectomy 2 years ago, also bowel resection due to incarcerated hernia 2 years ago EXAM MEASUREMENTS: Liver Length: 14.4 cm Gallbladder Wall: Surgically absent CBD: 0.6 cm Spleen: 9.5 cm Right Kidney: 8.4 x 5.3 x 5.3 cm Left Kidney: 8.8 x 5.8 x 4.2 cm Pancreas: Obscured by bowel gas Liver: wnl Gallbladder: Surgically absent Evidence for sonographic Pompa's sign: no CBD: upper limits of normal Spleen: wnl Right Kidney: No hydronephrosis or masses seen Left Kidney: No hydronephrosis or masses seen Upper IVC: Obscured by overlying bowel gas Abd Aorta: wnl Small amount of fluid in lower quadrants. The liver is homogenous. The intrahepatic portion of the IVC and proximal abdominal aorta are within normal limits. Common bile duct is unremarkable. The visualized portions of the pancreas are andi ogenous. The spleen is unremarkable. Kidneys are symmetric and free of hydronephrosis. No renal le sions are seen. IMPRESSION: 1. No significant abnormality seen.
== END | disposition home or self-care (01) ==
LOC: RADUSWWP 07:00
PROVIDERS: ATTEND Internal Medicine
DX: R10.9 Unspecified abdominal pain (principal)
CPT/HCPCS: 76700

== ENCOUNTER 2017-12-31 03:45 | Inpatient (IN) | payer MEDICARE, BC ==
[2017-12-31] MEDS ORDERED: SODIUM CHLORIDE 0.9% 1,000 ML IV STA (04:45)
[2017-12-31] MEDS ORDERED: MORPHINE SULFATE 2 MG/ML SYRINGE IVP STA (04:45)
[2017-12-31 04:50] LABS: Anisocytosis Slight; Basophils % (A) 0 %; Eosinophils # (A) 0.1 k/uL (0-0.7); Eosinophils % (A) 1 %; HCT 35.3 % (34.0-46.0); HGB 10.8 gm/dL (11.4-16.0); Hypochromasia Slight; Lymphocytes # (A) 0.7 k/uL (1.0-4.8); Lymphocytes % (A) 6 %; MCHC 30.6 g/dL (31.0-37.0); MCV 85.1 fL (80.0-100.0); Mean Platelet Volume 7.3; Monocytes # (A) 0.6 k/uL (0-1.0); Monocytes % (A) 5 %; Neutrophils # (A) 11.2 k/uL (1.3-7.7); Neutrophils % (A) 88 %; Platelet Count 280 k/uL (150-450); RBC 4.15 m/uL (3.80-5.40); RDW 17.4 % (11.5-15.5); WBC 12.8 k/uL (3.8-10.6)
[2017-12-31 04:55] LABS: Appearance,Urine Clear (Clear); Bacteria,Urine Rare /hpf; Bilirubin,Urine Negative (Negative); Blood,Urine Negative (Negative); Color,Urine Yellow; Glucose,Urine (UA) Negative (Negative); Ketones,Urine Negative (Negative); Leukocyte Esterase,Urine Negative (Negative); Nitrite,Urine Negative (Negative); Protein,Urine 3+ (Negative); RBC,Urine 1 /hpf (0-5); Specific Gravity,Urine 1.014 (1.001-1.035); Squamous Epithelial Cell,Urine 1 /hpf (0-4); Urobilinogen,Urine <2.0 mg/dL (<2.0); WBC,Urine 3 /hpf (0-5)
[2017-12-31] MEDS: ONDANSETRON 4 MG/2 ML VIAL IVP STA ×2 (04:55→07:03)
[2017-12-31 05:14] LABS: Albumin 3.9 g/dL (3.5-5.0); C Reactive Protein 36.2 mg/L (<10.0); Calcium 8.6 mg/dL (8.4-10.2); Total Bilirubin 0.3 mg/dL (0.2-1.3); Total Protein 7.4 g/dL (6.3-8.2)
[2017-12-31] MEDS ORDERED: PIPERACILLIN-TAZOBACTAM 3.375 GM in DEXTROSE/WATER 1 50ML.BAG IVPB SCH ×2 (06:00→21:00)
[2017-12-31 06:02] LABS: Amylase 103 U/L (30-110); Lipase 27 U/L (23-300)
--- NOTE | 2017-12-31 06:18 | CT ---
EXAM: CT Abdomen and Pelvis Without Intravenous Contrast CLINICAL HISTORY: abd and back pain, bloating and nausea with vomiting, history of renal failure, TECHNIQUE: Axial computed tomography images of the abdomen and pelvis without intravenous contrast. CTDI is 5.90 mGy and DLP is 312.30 mGy-cm. This CT exam was performed using one or more of the following dose reduction techniques: automated exposure control, adjustment of the mA and/or kV according to patient size, and/or use of iterative reconstruction technique. COMPARISON: 04/03/2017. FINDINGS: Lung bases: Mild bibasilar atelectasis. ABDOMEN: Liver: Unremarkable. Gallbladder and bile ducts: Patient status post cholecystectomy. No ductal dilation. Pancreas: Unremarkable. No ductal dilation. Spleen: Unremarkable. No splenomegaly. Adrenals: Unremarkable. No mass. Kidneys and ureters: Essentially unchanged. No obstructing stones. No hydronephrosis. Stomach and bowel: Limited evaluation the bowel without oral and IV contrast. Anastomotic suture seen involving the mid/distal small bowel. Distended air-fluid filled small bowel loops are seen with transition point in the right lower quadrant with associated moderate amount of intra-abdominal free fluid, which appears to measure greater than water density raising concern for hemoperitoneum. Peritonitis may also be present. Distal small bowel loops appear collapsed. Constellation of findings are suggestive of a complete high-grade small bowel obstruction. PELVIS: Appendix: No findings to suggest acute appendicitis. Bladder: Urinary bladder wall thickening versus underdistention raises concern for cystitis. Hyperdense material is also seen within the urinary bladder raising concern for acute blood products. No stones. Reproductive: Tampon is seen within the vagina. ABDOMEN and PELVIS: Intraperitoneal space: See above. Bones/joints: No acute fracture. No dislocation. Soft tissues: Fluid is also seen extending into anterior abdominal wall defect. Vasculature: Unremarkable. No abdominal aortic aneurysm. Lymph nodes: Unremarkable. No enlarged lymph nodes. Tubes, lines and devices: Right femoral central venous line is seen with tip in the IVC. IMPRESSION: 1. Anastomotic suture involving the mid/distal small bowel. Distended air-fluid filled small bowel loops are seen with transition point likely in the right lower quadrant with associated moderate amount of intra- abdominal free fluid, which appears to measure greater than water density raising concern for hemoperitoneum. Peritonitis may also be present. Distal small bowel loops appear collapsed. Constellation of findings are suggestive of a complete high-grade small bowel obstruction. Consider repeat CT of the abdomen with IV and oral contrast to further evaluate the bowel. 2. Urinary bladder wall thickening versus underdistention raises concern for cystitis. Hyperdense material is also seen within the urinary bladder raising concern for acute blood products. Correlate clinically. 3. Right femoral central venous line is seen with tip in the IVC. [employer] 12/31/17 06:08 Call Doctor Regarding Other, called Dr. Mulligan on 12/31 06: 08 (-04:00)
--- NOTE | 2017-12-31 06:33 | ED ---
Abdominal Pain HPI - General Chief Complaint: Abdominal Pain Stated Complaint: Abd/back pain Time Seen by Provider: 12/31/17 04:14 Source: patient Mode of arrival: ambulatory Limitations: no limitations - History of Present Illness Initial Comments: 42 years old female presents with a epigastric pain, epigastric pain started at 4 PM today it radiates towards her back she does have a history of diabetes and renal failure she has been very nauseous she threw up about 5 times and pain is getting worse. She denies any headache no neck stiffness no chest pain no shortness of breath at this point. No frequency urgency dysuria no symptoms of TIA or CVA - Related Data Home Medications Medication Instructions Recorded Confirmed Atorvastatin Calcium [Lipitor] 20 mg PO HS 01/08/15 12/31/17 Pantoprazole [Protonix] 40 mg PO QAM 12/25/15 12/31/17 Metolazone 5 mg PO BID 04/04/16 12/31/17 Lisinopril [Prinivil] 5 mg PO BID 10/15/16 12/31/17 Potassium Chloride [K-Tab ER] 15 meq PO HS 12/03/16 04/03/17 Drospir/Eth Estra/Levomefol Ca 1 each PO 12/31/17 [Tydemy Tablet] Furosemide [Lasix] 80 mg PO BID 12/31/17 12/31/17 Insulin Aspart [NovoLOG] 3 units SQ AC-TID 12/31/17 12/31/17 Insulin Glargine [Lantus] 15 unit SQ HS 12/31/17 12/31/17 Metoclopramide HCl [Reglan] 5 mg PO BID 12/31/17 12/31/17 Ondansetron Odt [Zofran Odt] 4 mg PO Q12HR PRN 12/31/17 12/31/17 Potassium Chloride ER [K-Dur 10] 10 meq PO HS 12/31/17 12/31/17 Potassium Citrate/Citric Acid 5 ml PO 12/31/17 [Potassium Cit-Citric Acid Soln] Corie-Shelley 1 tab PO DAILY 12/31/17 12/31/17 cloNIDine HCL [Catapres] 0.1 mg PO BID 12/31/17 12/31/17 Allergies Allergy/AdvReac Type Severity Reaction Status Date / Time No Known Allergies Allergy Verified 04/03/17 17:03 Review of Systems ROS Statement: Those systems with pertinent positive or pertinent negative responses have been documented in the HPI. ROS Other: All systems not noted in ROS Statement are negative. Past Medical History Past Medical History: Heart Failure, Diabetes Mellitus, Dialysis, GERD/Reflux, Hyperlipidemia, Hypertension, Renal Disease Additional Past Medical History / Comment(s): Recent admission 10/21/15 with peritonitis, End stage RENAL FAILURE WITH CURRENT HEMODIALYSIS, MON,WED,FRI. respiratory failure due to sepsis and was vented once,O2 1L/NC prn, diabetic neuropathy bilateral feet, anemia, hiatal hernia, [id number]."told in past i had ibs", migraines, History of Any Multi-Drug Resistant Organisms: None Reported Past Surgical History: Bowel Resection, Breast Surgery, Cholecystectomy, Hernia Repair Additional Past Surgical History / Comment(s): R breast biopsy X 2 both benign. breast reduction. akosua cataracts removed/ lens implants. HAS HAD 2 PERITONEAL DIALYSIS CATHETERS, AND 3 HEMODIALYSIS CATHETHERS. Umbilical hernia repair with ischemic bowel within-small resection. CoLnoscopy/EGD. Past Anesthesia/Blood Transfusion Reactions: Motion Sickness, Postoperative Nausea & Vomiting (PONV) Additional Past Anesthesia/Blood Transfusion Reaction / Comment(s): no blood products-pt is a muslim Past Psychological History: No Psychological Hx Reported Smoking Status: Never smoker Past Alcohol Use History: Rare Past Drug Use History: None Reported - Past Family History Mother Family Medical History: Osteoarthritis (OA) Additional Family Medical History / Comment(s): Mother is living. Father Family Medical History: Cancer Additional Family Medical History / Comment(s): Father of LIVER cancer at age 61 yrs. General Exam - General Exam Comments Initial Comments: General: The patient is awake and alert, in moderate distress because of the abdominal pain Skin: Skin is warm and dry and no rashes or lesions are noted. Eye: Pupils are equal, round and reactive to light, extra-ocular movements are intact; there is normal conjunctiva bilaterally. Ears, nose, mouth and throat: There are moist mucous membranes and no oral lesions. Neck: The neck is supple, there is no tenderness or JVD. Cardiovascular: There is a regular rate and rhythm. No murmur, rub or gallop is appreciated. Respiratory: To auscultation bilateral, no wheezing no rhonchi no distress respiratory jesus noticed Gastrointestinal: Abdomen is distended, tender in epigastric area bowel sounds are positive. Back: There is no tenderness to palpation in the midline. There is no obvious deformity. Musculoskeletal: Normal ROM, no tenderness, There is no pedal edema. There is no calf tenderness or swelling. No cords were appreciated. Neurological: CN II-XII intact, Cranial nerves III through XII are intact. There are no obvious motor or sensory deficits. Coordination appears grossly intact. Speech is normal. Psychiatric: Cooperative, appropriate mood & affect, normal judgment. Limitations: no limitations Course Vital Signs 12/31/17 12/31/17 12/31/17 03:47 04:30 05:04 Temperature 98.5 F Pulse Rate 109 H 102 H 102 H Respiratory 18 18 18 Rate Blood Pressure 130/85 165/92 160/80 O2 Sat by Pulse 98 95 95 Oximetry 12/31/17 12/31/17 05:53 05:55 Temperature Pulse Rate 99 Respiratory 18 Rate Blood Pressure 168/95 155/85 O2 Sat by Pulse 96 Oximetry Patient is reassessed at 6:15, CBC is 15 CBC is 13 with a left shift creatinine is 4.3 to see protein is 36.2 urinalysis is unremarkable I reviewed her CT of the abdomen and pelvis radiologist called me saying that she has a dilated small bowel loops and he is suspecting hemoperitoneum he recommended surgical consult, spoke with the Dr. Platt, he advised nasogastric tube and antibiotics Medical Decision Making - Lab Data Result diagrams: 12/31/17 04:24 12/31/17 04:24 Lab Results 12/31/17 12/31/17 12/31/17 Range/Units 04:24 04:24 04:24 WBC 12.8 H (3.8-10.6) k/uL RBC 4.15 (3.80-5.40) m/uL Hgb 10.8 L (11.4-16.0) gm/dL Hct 35.3 (34.0-46.0) % MCV 85.1 (80.0-100.0) fL MCH 26.0 (25.0-35.0) pg MCHC 30.6 L (31.0-37.0) g/dL RDW 17.4 H (11.5-15.5) % Plt Count 280 (150-450) k/uL Neutrophils % 88 % Lymphocytes % 6 % Monocytes % 5 % Eosinophils % 1 % Basophils % 0 % Neutrophils # 11.2 H (1.3-7.7) k/uL Lymphocytes # 0.7 L (1.0-4.8) k/uL Monocytes # 0.6 (0-1.0) k/uL Eosinophils # 0.1 (0-0.7) k/uL Basophils # 0.0 (0-0.2) k/uL Hypochromasia Slight Anisocytosis Slight Sodium 141 (137-145) mmol/L Potassium 4.0 (3.5-5.1) mmol/L Chloride 100 (98-107) mmol/L Carbon Dioxide 26 (22-30) mmol/L Anion Gap 15 mmol/L BUN 23 H (7-17) mg/dL Creatinine 4.32 H (0.52-1.04) mg/dL Est GFR (CKD-EPI)AfAm 14 (>60 ml/min/1.73 sqM) Est GFR (CKD-EPI)NonAf 12 (>60 ml/min/1.73 sqM) Glucose 134 H (74-99) mg/dL Calcium 8.6 (8.4-10.2) mg/dL Total Bilirubin 0.3 (0.2-1.3) mg/dL AST 19 (14-36) U/L ALT 14 (9-52) U/L Alkaline Phosphatase 69 (38-126) U/L C-Reactive Protein 36.2 H (<10.0) mg/L Total Protein 7.4 (6.3-8.2) g/dL Albumin 3.9 (3.5-5.0) g/dL Amylase (30-110) U/L Lipase (23-300) U/L Urine Color Urine Appearance (Clear) Urine pH (5.0-8.0) Ur Specific Magnolia (1.001-1.035) Urine Protein (Negative) Urine Glucose (UA) (Negative) Urine Ketones (Negative) Urine Blood (Negative) Urine Nitrite (Negative) Urine Bilirubin (Negative) Urine Urobilinogen (<2.0) mg/dL Ur Leukocyte Esterase (Negative) Urine RBC (0-5) /hpf Urine WBC (0-5) /hpf Ur Squamous Epith Cells (0-4) /hpf Urine Bacteria (None) /hpf Urine HCG, Qual Not Detected (Not Detectd) 12/31/17 12/31/17 Range/Units 04:24 04:24 WBC (3.8-10.6) k/uL RBC (3.80-5.40) m/uL Hgb (11.4-16.0) gm/dL Hct (34.0-46.0) % MCV (80.0-100.0) fL MCH (25.0-35.0) pg MCHC (31.0-37.0) g/dL RDW (11.5-15.5) % Plt Count (150-450) k/uL Neutrophils % % Lymphocytes % % Monocytes % % Eosinophils % % Basophils % % Neutrophils # (1.3-7.7) k/uL Lymphocytes # (1.0-4.8) k/uL Monocytes # (0-1.0) k/uL Eosinophils # (0-0.7) k/uL Basophils # (0-0.2) k/uL Hypochromasia Anisocytosis Sodium (137-145) mmol/L Potassium (3.5-5.1) mmol/L Chloride (98-107) mmol/L Carbon Dioxide (22-30) mmol/L Anion Gap mmol/L BUN (7-17) mg/dL Creatinine (0.52-1.04) mg/dL Est GFR (CKD-EPI)AfAm (>60 ml/min/1.73 sqM) Est GFR (CKD-EPI)NonAf (>60 ml/min/1.73 sqM) Glucose (74-99) mg/dL Calcium (8.4-10.2) mg/dL Total Bilirubin (0.2-1.3) mg/dL AST (14-36) U/L ALT (9-52) U/L Alkaline Phosphatase (38-126) U/L C-Reactive Protein (<10.0) mg/L Total Protein (6.3-8.2) g/dL Albumin (3.5-5.0) g/dL Amylase 103 (30-110) U/L Lipase 27 (23-300) U/L Urine Color Yellow Urine Appearance Clear (Clear) Urine pH 8.0 (5.0-8.0) Ur Specific [place] 1.014 (1.001-1.035) Urine Protein 3+ H (Negative) Urine Glucose (UA) Negative (Negative) Urine Ketones Negative (Negative) Urine Blood Negative (Negative) Urine Nitrite Negative (Negative) Urine Bilirubin Negative (Negative) Urine Urobilinogen <2.0 (<2.0) mg/dL Ur Leukocyte Esterase Negative (Negative) Urine RBC 1 (0-5) /hpf Urine WBC 3 (0-5) /hpf Ur Squamous Epith Cells 1 (0-4) /hpf Urine Bacteria Rare H (None) /hpf Urine HCG, Qual (Not Detectd) Disposition Clinical Impression: Small bowel obstruction, Hemoperitoneum Disposition: ADMITTED IP TO THIS HOSP Condition: Good Referrals: De Hopper MD [Primary Care Provider] - 1-2 days
[2017-12-31] MEDS ORDERED: PIPERACILLIN-TAZOBACTAM 3.375 GM in DEXTROSE/WATER 1 50ML.BAG IVPB STA ×2 (06:41→17:05)
[2017-12-31] MEDS ORDERED: NALOXONE 0.4 MG/ML 1 ML VIAL IV PRN (06:42)
[2017-12-31] MEDS ORDERED: MORPHINE SULFATE 4 MG/ML SYRINGE IV PRN (06:42)
[2017-12-31] MEDS ORDERED: ONDANSETRON ODT 4 MG TAB PO PRN (06:45)
--- NOTE | 2017-12-31 07:40 | XR ---
EXAMINATION TYPE: XR chest 1V portable DATE OF EXAM: 12/31/2017 COMPARISON: Prior chest 11/11/[address] 12/31/2017 HISTORY: NG tube placement TECHNIQUE: Single frontal view of the chest is obtained. FINDINGS: There is been interval placement of an NG tube, distal tip is overlying the left upper vinod drant. No pneumothorax or pleural effusion. Surgical clips noted in the left axilla, right upper quad rant. Cardiac mediastinal silhouette, pulmonary vascularity and bryn not significantly changed. Lung nodules noted at the posterior lung bases CT scan are not seen on plain film. IMPRESSION: NG tube as described. Nodular densities in the lung bases not seen on frontal chest radi ograph, follow-up is recommended.
[2017-12-31] MEDS: MORPHINE SULFATE 2 MG/ML SYRINGE IV PRN ×3 (08:37→23:04)
[2017-12-31] MEDS ORDERED: cloNIDine HCL 0.1 MG TAB PO SCH (09:00)
[2017-12-31] MEDS ORDERED: LISINOPRIL 5 MG TAB PO SCH (09:00)
[2017-12-31] MEDS ORDERED: METOCLOPRAMIDE 5 MG TAB PO SCH (09:00)
[2017-12-31] MEDS ORDERED: FUROSEMIDE 80 MG TAB PO SCH (09:00)
[2017-12-31] MEDS: METOLAZONE 5 MG TAB PO SCH ×2 (09:17→20:43)
[2017-12-31] MEDS: cloNIDine 0.2 MG/24HR PATCH 1 PATCH PATCH TRANSDERM SCH (09:20)
[2017-12-31] MEDS: FUROSEMIDE 10 MG/ML 4 ML VIAL IV SCH ×2 (09:22→20:43)
--- NOTE | 2017-12-31 10:37 | P.NPCON ---
History of Present Illness - Reason for Consult end stage renal disease - History of Present Illness Reason for consultation: End-stage renal disease History of present illness: Patient is a 42-year-old female seen in renal consultation for end-stage renal disease. She is making on hemodialysis on a Friday schedule via right groin permacath. Patient presented to the hospital with abdominal pain and multiple episodes of emesis yesterday evening after dinner. Patient noted abdomen was firm as well. She underwent CAT scan of the abdomen and pelvis in the emergency room which revealed high-grade small bowel obstruction. An NG tube was placed and 400 mL of gastric fluid was obtained. No significant output overnight. She still feels nauseous. Abdominal pain has improved. Denies chest pain or shortness of breath. Her last hemodialysis treatment was yesterday. Hemodynamically stable. She is currently maintained on normal saline at 75 mL an hour. Vital signs are stable. General: The patient appeared well nourished and normally developed. HEENT: Head exam is unremarkable. Neck is without jugular venous distension. NG tube in place. LUNGS: Lungs are clear to auscultation and percussion. Breath sounds decreased. HEART: Rate and Rhythm are regular. First and second heart sounds normal. No murmurs, rubs or gallops. ABDOMEN: Bowel sounds decreased. Generalized tenderness. EXTREMITITES: No clubbing, cyanosis, or edema. Past Medical History Past Medical History: Heart Failure, Diabetes Mellitus, Dialysis, GERD/Reflux, Hyperlipidemia, Hypertension, Renal Disease Additional Past Medical History / Comment(s): End stage RENAL FAILURE WITH CURRENT HEMODIALYSIS, FRI,FRI,FRI-pt states last hemo was yesterday, 12/30/17 because she was having problems with her dialysis cath, past peritoneal dialysis and had peritonitis, respiratory failure due to sepsis and was vented once, IDDM type II, diabetic neuropathy bilateral feet, anemia, hiatal hernia, [id number]."told in past i had ibs", migraines, History of Any Multi-Drug Resistant Organisms: None Reported Past Surgical History: Bowel Resection, Breast Surgery, Cholecystectomy, Hernia Repair Additional Past Surgical History / Comment(s): R breast biopsy X 2 both benign, breast reduction, akosua cataracts removed/ lens implants, HAS HAD 2 PERITONEAL DIALYSIS CATHETERS, AND 5 HEMODIALYSIS CATHETHERS, umbilical hernia repair with ischemic bowel within-small resection, colonoscopy/EGD. Past Anesthesia/Blood Transfusion Reactions: Motion Sickness, Postoperative Nausea & Vomiting (PONV) Additional Past Anesthesia/Blood Transfusion Reaction / Comment(s): no blood products-pt is a latter day Smoking Status: Never smoker - Past Family History Mother Family Medical History: Osteoarthritis (OA) Additional Family Medical History / Comment(s): Mother is living. Father Family Medical History: Cancer Additional Family Medical History / Comment(s): Father of LIVER cancer at age 61 yrs. Medications and Allergies Home Medications Medication Instructions Recorded Confirmed Type RX: Atorvastatin Calcium [Lipitor] 20 mg PO HS 01/08/15 12/31/17 History RX: Pantoprazole [Protonix] 40 mg PO QAM 12/25/15 12/31/17 History RX: Metolazone 5 mg PO BID 04/04/16 12/31/17 History RX: Lisinopril [Prinivil] 5 mg PO BID 10/15/16 12/31/17 History Drospir/Eth Estra/Levomefol Ca 1 tab PO DAILY 12/31/17 12/31/17 History [Tydemy Tablet] Furosemide [Lasix] 80 mg PO BID 12/31/17 12/31/17 History Insulin Aspart [NovoLOG] 3 units SQ AC-TID 12/31/17 12/31/17 History Insulin Glargine [Lantus] 15 unit SQ HS 12/31/17 12/31/17 History Metoclopramide HCl [Reglan] 5 mg PO BID 12/31/17 12/31/17 History Ondansetron Odt [Zofran Odt] 4 mg PO Q12HR PRN 12/31/17 12/31/17 History Potassium Chloride 40meq/15ml 15 meq PO HS 12/31/17 12/31/17 History Potassium Chloride ER [K-Dur 10] 10 meq PO HS 12/31/17 12/31/17 History Potassium Citrate/Citric Acid 5 ml PO DAILY 12/31/17 12/31/17 History [Potassium Cit-Citric Acid Soln] Corie-Shelley 1 tab PO DAILY 12/31/17 12/31/17 History cloNIDine HCL [Catapres] 0.1 mg PO BID 12/31/17 12/31/17 History Allergies Allergy/AdvReac Type Severity Reaction Status Date / Time No Known Allergies Allergy Verified 12/31/17 07:33 Physical Exam Vitals: Vital Signs Temp Pulse Pulse Resp BP BP Pulse Ox 12/31/17 08:33 98.7 F 105 H 16 138/87 98 12/31/17 07:32 105 H 18 167/85 95 12/31/17 05:55 155/85 12/31/17 05:53 99 18 168/95 96 12/31/17 05:04 102 H 18 160/80 95 12/31/17 04:30 102 H 18 165/92 95 12/31/17 03:47 98.5 F 109 H 18 130/85 98 Intake and Output 12/30/17 12/31/17 12/31/17 22:59 06:59 14:59 Other: Weight 60.781 kg Results - Lab Results Most recent lab results Calcium 8.6 mg/dL (8.4-10.2) 12/31/17 04:24 12/31/17 04:24 12/31/17 04:24 Assessment and Plan Plan: Assessment: 1. End-stage renal disease maintained on hemodialysis on a Friday schedule via right groin permacath. She just had to groin permacath placed on 12/30/2017. She had a upper extremity AV graft which occluded. 2. Small bowel obstruction with NG tube in place. Surgery following. Plan for surgery today. 3. Hypertension with chronic kidney disease. 4. Insulin-dependent diabetes mellitus. 5. Chronic kidney disease mineral bone disease. 6. Anemia of chronic kidney disease. Hemoglobin at goal. Plan: Schedule for hemodialysis tomorrow. Check phosphorus level. I will decrease rate of normal saline to 50 mL an hour. Thank you for the consultation. I will continue to follow the patient with you during her hospital stay.
[2017-12-31] MEDS: PANTOPRAZOLE 40 MG/10 ML VIAL IVP SCH ×2 (10:39→20:44)
[2017-12-31] MEDS: METOCLOPRAMIDE 5 MG/ML 2 ML VIAL IVP SCH ×3 (11:19→23:04)
--- NOTE | 2017-12-31 11:56 | P.GSHP ---
<Nava Ayala - Last Filed: 12/31/17 11:40> History of Present Illness H&P Date: 12/31/17 Chief Complaint: Abdominal pain 42-year-old female presented on the day of admission to the emergency room to be evaluated for ongoing persistent epigastric pain nausea with vomiting. Patient stated that earlier in the day she had at [facility] undergone placement right groin approach for a permacath for hemodialysis. Patient did receive hemodialysis went home around 5:00 in the afternoon started feeling nausea with several emesis patient stated she started to vomit with abdominal pain. stated it felt like she needed to have a bowel movement but could not pass gas or have a bowel movement became concerned presented to the emergency room for the above-mentioned symptoms in the emergency room patient had a CAT scan of the abdomen pelvis it did show high-grade small bowel obstruction. Nasogastric tube was placed in the emergency room with 400 mL returning. Currently denying dizziness lightheadedness shortness of breath or chest pain when questioning states abdominal pain persist but a slight improvement Subsequently patient was admitted to the services of the attending. Past surgical history Cholecystectomy for chronic cholecystitis,, laparoscopic repair of incarcerated incisional hernia with a small bowel resection August peritoneal dialysis catheter removed Past medical history end-stage kidney disease, diabetes type 2, hypertension, esophageal reflex, peritonitis in October 2015 - Review of Systems Comment: Essentially unremarkable except as mentioned in the present illness Past Medical History Past Medical History: Heart Failure, Diabetes Mellitus, Dialysis, GERD/Reflux, Hyperlipidemia, Hypertension, Renal Disease Additional Past Medical History / Comment(s): End stage RENAL FAILURE WITH CURRENT HEMODIALYSIS, MON,WED,FRI-pt states last hemo was yesterday, 12/30/17 because she was having problems with her dialysis cath, past peritoneal dialysis and had peritonitis, respiratory failure due to sepsis and was vented once, IDDM type II, diabetic neuropathy bilateral feet, anemia, hiatal hernia, [id number]."told in past i had ibs", migraines, History of Any Multi-Drug Resistant Organisms: None Reported Past Surgical History: Bowel Resection, Breast Surgery, Cholecystectomy, Hernia Repair Additional Past Surgical History / Comment(s): R breast biopsy X 2 both benign, breast reduction, akosua cataracts removed/ lens implants, HAS HAD 2 PERITONEAL DIALYSIS CATHETERS, AND 5 HEMODIALYSIS CATHETHERS, umbilical hernia repair with ischemic bowel within-small resection, colonoscopy/EGD. 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 Father Family Medical History: Cancer Additional Family Medical History / Comment(s): Father of LIVER cancer at age 61 yrs. Medications and Allergies Home Medications Medication Instructions Recorded Confirmed Type Atorvastatin Calcium [Lipitor] 20 mg PO HS 01/08/15 12/31/17 History Pantoprazole [Protonix] 40 mg PO QAM 12/25/15 12/31/17 History Metolazone 5 mg PO BID 04/04/16 12/31/17 History Lisinopril [Prinivil] 5 mg PO BID 10/15/16 12/31/17 History Drospir/Eth Estra/Levomefol Ca 1 tab PO DAILY 12/31/17 12/31/17 History [Tydemy Tablet] Furosemide [Lasix] 80 mg PO BID 12/31/17 12/31/17 History Insulin Aspart [NovoLOG] 3 units SQ AC-TID 12/31/17 12/31/17 History Insulin Glargine [Lantus] 15 unit SQ HS 12/31/17 12/31/17 History Metoclopramide HCl [Reglan] 5 mg PO BID 12/31/17 12/31/17 History Ondansetron Odt [Zofran Odt] 4 mg PO Q12HR PRN 12/31/17 12/31/17 History Potassium Chloride 40meq/15ml 15 meq PO HS 12/31/17 12/31/17 History Potassium Chloride ER [K-Dur 10] 10 meq PO HS 12/31/17 12/31/17 History Potassium Citrate/Citric Acid 5 ml PO DAILY 12/31/17 12/31/17 History [Potassium Cit-Citric Acid Soln] Corie-Shelley 1 tab PO DAILY 12/31/17 12/31/17 History cloNIDine HCL [Catapres] 0.1 mg PO BID 12/31/17 12/31/17 History Allergies Allergy/AdvReac Type Severity Reaction Status Date / Time No Known Allergies Allergy Verified 12/31/17 07:33 Surgical - Exam Vital Signs Temp Pulse Resp BP Pulse Ox 98.5 F 109 H 18 130/85 98 12/31/17 03:47 12/31/17 03:47 12/31/17 03:47 12/31/17 03:47 12/31/17 03:47 GENERAL APPEARANCE: Pleasant 42-year-old female patient is alert, oriented, in no acute distress. Sitting up in bed VITAL SIGNS: Reviewed HEENT: Head is normocephalic and atraumatic. Pupils are equal and reactive. The nares are patent. Oropharynx is clear without lesions. NECK: Supple without lymphadenopathy. Traches midline. HEART: S1, S2. Regular rate and rhythm. No murmur denying chest pain LUNGS: No crackles or wheezes are heard. On room air no shortness of breath ABDOMEN: Soft, diffuse tenderness nondistended with a few hypoactive bowel tones nasal gastric tube connected to suction 200 output past several hours. No peritoneal signs. No palpable organomegaly or masses. No stool EXTREMITIES: Normal skin color and turgor. No cyanosis, rash, ulceration, clubbing or edema. Radial pedal pulses are 2/4 bilaterally. Right groin permacath in place dressings dry NEUROLOGICAL: No focal deficits. Strength and sensation are grossly intact. Results - Labs 12/31/17 04:24 12/31/17 04:24 Abnormal Lab Results - Last 24 Hours (Table) 12/31/17 12/31/17 12/31/17 Range/Units 04:24 04:24 04:24 WBC 12.8 H (3.8-10.6) k/uL Hgb 10.8 L (11.4-16.0) gm/dL MCHC 30.6 L (31.0-37.0) g/dL RDW 17.4 H (11.5-15.5) % Neutrophils # 11.2 H (1.3-7.7) k/uL Lymphocytes # 0.7 L (1.0-4.8) k/uL BUN 23 H (7-17) mg/dL Creatinine 4.32 H (0.52-1.04) mg/dL Glucose 134 H (74-99) mg/dL C-Reactive Protein 36.2 H (<10.0) mg/L Urine Protein 3+ H (Negative) Urine Bacteria Rare H (None) /hpf Diabetes panel 12/31/17 Range/Units 04:24 Sodium 141 (137-145) mmol/L Potassium 4.0 (3.5-5.1) mmol/L Chloride 100 (98-107) mmol/L Carbon Dioxide 26 (22-30) mmol/L BUN 23 H (7-17) mg/dL Creatinine 4.32 H (0.52-1.04) mg/dL Glucose 134 H (74-99) mg/dL Calcium 8.6 (8.4-10.2) mg/dL AST 19 (14-36) U/L ALT 14 (9-52) U/L Alkaline Phosphatase 69 (38-126) U/L Total Protein 7.4 (6.3-8.2) g/dL Albumin 3.9 (3.5-5.0) g/dL Calcium panel 12/31/17 Range/Units 04:24 Calcium 8.6 (8.4-10.2) mg/dL Albumin 3.9 (3.5-5.0) g/dL Pituitary panel 12/31/17 Range/Units 04:24 Sodium 141 (137-145) mmol/L Potassium 4.0 (3.5-5.1) mmol/L Chloride 100 (98-107) mmol/L Carbon Dioxide 26 (22-30) mmol/L BUN 23 H (7-17) mg/dL Creatinine 4.32 H (0.52-1.04) mg/dL Glucose 134 H (74-99) mg/dL Calcium 8.6 (8.4-10.2) mg/dL Adrenal panel 12/31/17 Range/Units 04:24 Sodium 141 (137-145) mmol/L Potassium 4.0 (3.5-5.1) mmol/L Chloride 100 (98-107) mmol/L Carbon Dioxide 26 (22-30) mmol/L BUN 23 H (7-17) mg/dL Creatinine 4.32 H (0.52-1.04) mg/dL Glucose 134 H (74-99) mg/dL Calcium 8.6 (8.4-10.2) mg/dL Total Bilirubin 0.3 (0.2-1.3) mg/dL AST 19 (14-36) U/L ALT 14 (9-52) U/L Alkaline Phosphatase 69 (38-126) U/L Total Protein 7.4 (6.3-8.2) g/dL Albumin 3.9 (3.5-5.0) g/dL Assessment and Plan Assessment: Impression Present on admission intractable nausea vomiting with abdominal pain suspect due to complete high-grade bowel obstruction per CAT scan imaging End-stage renal disease on hemodialysis Friday schedule Status post December 30 permacath placed right groin Type 2 diabetes insulin requiring Anemia of chronic illness Hypertension with chronic kidney disease Present on admission leukocytosis suspect reactive History of a cholecystectomy 2 years prior History of a bowel resection due to incarcerated hernia 2 years prior Plan Patient will be scheduled today for OR to address the high-grade bowel obstruction Keep the nasogastric tube to suction IV fluid at 75 an hour per nephrology's recommendations Will resume hemodialysis schedule per nephrology recommendations Anti-emetics as ordered IV Zosyn as ordered consult medicine to address medical issues DVT and GI prophylaxis Pain control Patient updated on plan of care questions answered The above impression and plan of care have been discussed and directed by signing physician. Nava Ayala nurse practitioner acting as scribe for signing physician. <Noah Platt - Last Filed: 12/31/17 15:51> Surgical - Exam Vital Signs Temp Pulse Resp BP Pulse Ox 98.5 F 109 H 18 130/85 98 12/31/17 03:47 12/31/17 03:47 12/31/17 03:47 12/31/17 03:47 12/31/17 03:47 Results - Labs 12/31/17 04:24 12/31/17 04:24 Abnormal Lab Results - Last 24 Hours (Table) 12/31/17 12/31/17 12/31/17 Range/Units 04:24 04:24 04:24 WBC 12.8 H (3.8-10.6) k/uL Hgb 10.8 L (11.4-16.0) gm/dL MCHC 30.6 L (31.0-37.0) g/dL RDW 17.4 H (11.5-15.5) % Neutrophils # 11.2 H (1.3-7.7) k/uL Lymphocytes # 0.7 L (1.0-4.8) k/uL BUN 23 H (7-17) mg/dL Creatinine 4.32 H (0.52-1.04) mg/dL Glucose 134 H (74-99) mg/dL Phosphorus (2.5-4.5) mg/dL C-Reactive Protein 36.2 H (<10.0) mg/L Urine Protein 3+ H (Negative) Urine Bacteria Rare H (None) /hpf 12/31/17 Range/Units 11:48 WBC (3.8-10.6) k/uL Hgb (11.4-16.0) gm/dL MCHC (31.0-37.0) g/dL RDW (11.5-15.5) % Neutrophils # (1.3-7.7) k/uL Lymphocytes # (1.0-4.8) k/uL BUN (7-17) mg/dL Creatinine (0.52-1.04) mg/dL Glucose (74-99) mg/dL Phosphorus 4.8 H (2.5-4.5) mg/dL C-Reactive Protein (<10.0) mg/L Urine Protein (Negative) Urine Bacteria (None) /hpf Diabetes panel 12/31/17 Range/Units 04:24 Sodium 141 (137-145) mmol/L Potassium 4.0 (3.5-5.1) mmol/L Chloride 100 (98-107) mmol/L Carbon Dioxide 26 (22-30) mmol/L BUN 23 H (7-17) mg/dL Creatinine 4.32 H (0.52-1.04) mg/dL Glucose 134 H (74-99) mg/dL Calcium 8.6 (8.4-10.2) mg/dL AST 19 (14-36) U/L ALT 14 (9-52) U/L Alkaline Phosphatase 69 (38-126) U/L Total Protein 7.4 (6.3-8.2) g/dL Albumin 3.9 (3.5-5.0) g/dL Calcium panel 12/31/17 12/31/17 Range/Units 04:24 11:48 Calcium 8.6 (8.4-10.2) mg/dL Phosphorus 4.8 H (2.5-4.5) mg/dL Albumin 3.9 (3.5-5.0) g/dL Pituitary panel 12/31/17 Range/Units 04:24 Sodium 141 (137-145) mmol/L Potassium 4.0 (3.5-5.1) mmol/L Chloride 100 (98-107) mmol/L Carbon Dioxide 26 (22-30) mmol/L BUN 23 H (7-17) mg/dL Creatinine 4.32 H (0.52-1.04) mg/dL Glucose 134 H (74-99) mg/dL Calcium 8.6 (8.4-10.2) mg/dL Adrenal panel 12/31/17 Range/Units 04:24 Sodium 141 (137-145) mmol/L Potassium 4.0 (3.5-5.1) mmol/L Chloride 100 (98-107) mmol/L Carbon Dioxide 26 (22-30) mmol/L BUN 23 H (7-17) mg/dL Creatinine 4.32 H (0.52-1.04) mg/dL Glucose 134 H (74-99) mg/dL Calcium 8.6 (8.4-10.2) mg/dL Total Bilirubin 0.3 (0.2-1.3) mg/dL AST 19 (14-36) U/L ALT 14 (9-52) U/L Alkaline Phosphatase 69 (38-126) U/L Total Protein 7.4 (6.3-8.2) g/dL Albumin 3.9 (3.5-5.0) g/dL Assessment and Plan Plan: Patient's CAT scan shows evidence of a high-grade small bowel obstruction at the anastomosis. Patient will undergo exploratory laparotomy today.
[2017-12-31] MEDS ORDERED: IV FLUID CONTINUATION 150 ML IV ONE (15:08)
[2017-12-31] MEDS ORDERED: HEPARIN SODIUM,PORCINE 5,000 UNIT/ML 1 ML VIAL SQ ONE (15:35)
[2017-12-31] MEDS: ONDANSETRON 4 MG/2 ML VIAL IVP PRN (15:35)
[2017-12-31] MEDS ORDERED: LIDOCAINE 1% INJ 10MG/ML (20 ML MDV) ONE (15:50)
[2017-12-31] MEDS ORDERED: ROCURONIUM BROMIDE 10 MG/ML 10 ML VIAL IV ONE (15:50)
[2017-12-31] MEDS ORDERED: PROPOFOL 10 MG/ML 20 ML VIAL IV ONE (15:50)
[2017-12-31] MEDS ORDERED: fentaNYL (PF) 50 MCG/ML 2 ML AMP ONE (15:50)
[2017-12-31] MEDS ORDERED: PHENYLEPHRINE-0.9% NACL SYG 1 MG/10 ML SYRINGE ONE (15:50)
[2017-12-31] MEDS ORDERED: MIDAZOLAM 2 MG/2 ML VIAL ONE (15:50)
[2017-12-31] MEDS ORDERED: SUCCINYLCHOLINE CHLORIDE 100 MG/5 ML SYR IV ONE (15:50)
[2017-12-31] MEDS ORDERED: ETOMIDATE 2 MG/ML 10 ML VIAL ONE (15:50)
[2017-12-31] MEDS ORDERED: GLYCOPYRROLATE 0.2 MG/ML 2 ML VIAL ONE (15:50)
[2017-12-31] MEDS ORDERED: NEOSTIGMINE 1 MG/ML 10 ML VIAL ONE (15:50)
[2017-12-31 15:52] LABS: Glucose,Whole Blood 87 mg/dL (75-99)
[2017-12-31] MEDS ORDERED: LACTATED RINGERS 1,000 ML IV ONE (16:15)
--- NOTE | 2017-12-31 16:46 | CONS ---
CONSULTATION DATE OF CONSULTATION: 12/31/17. REASON FOR CONSULTATION: Medical management requested by Dr. Platt. CONSULTATION: This is a very pleasant 42-year-old patient of Dr. Hopper. Chronic stable medical conditions include end-stage kidney disease, anemia of chronic kidney disease, hypertension, hyperlipidemia, and peripheral neuropathy. The patient used to be on peritoneal dialysis and then patient was switched over to hemodialysis. The patient was last week at [facility] where Dr. Tyrone Jeter, vascular surgeon, had placed a new dialysis catheter in the right groin. It was used okay, but then the catheter started malfunctioning. The patient came in yesterday to [facility] where a new catheter was placed in the groin. The patient was dialyzed in the afternoon and patient went home late in the afternoon. Late in the evening, the patient started having increasing abdominal pain, fullness, nausea, no fever, and the pain got quite severe and decided to come into the ER. The patient was there, found to have a distended air-fluid level with small bowel loops seen with transition point right lower quadrant with a moderate amount of intraabdominal free fluid and there is a concern of a possible hemoperitoneum and there also is suggestion of high-grade small- bowel obstruction. The patient had a NG tube placed. Admitted to the medical floor. Nurses informed me that the patient will be taken down to surgery this afternoon by Dr. Platt. No fever. No chills. The patient two friends are present in the room. There is no cardiac history. REVIEW OF SYSTEMS: Constitutional: Tired. HEENT: NG tube in place. Respiratory none. Cardiovascular none. Gastrointestinal as above. Genitourinary none. Musculoskeletal none. Dermatological right groin dialysis catheter. HEMATOLOGICAL: None. Lymphatics none. Psychiatry none. Neurological numbness, tingling especially in the feet. PAST MEDICAL HISTORY: Past medical history of end-stage kidney disease, hemodialysis, GERD, hypertension, hyperlipidemia, on dialysis Friday, Friday and Friday, diabetic peripheral neuropathy, hiatal hernia, shingles in 2016. PAST SURGICAL HISTORY: Bowel resection, breast surgery, cholecystectomy, right breast biopsy x2 both benign, breast reduction, bilateral cataracts removed. Two peritoneal dialysis catheter and 5 hemodialysis catheters, umbilical hernia repair with ischemic bowel with small bowel resection. 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 Lives with her . No children. No smoking. Alcohol rarely. FAMILY HISTORY: Father of liver cancer at age of 61. HOME MEDICATIONS: 1. Catapres 0.1 mg p.o. b.i.d. 2. Corie-Shelley 1 tablet p.o. daily. 3. Potassium 10 mEq p.o. q.h.s. and 40 mEq/15 mL and takes 15 mEq p.o. q.h.s. 4. Potassium citrate 5 mL p.o. daily. 5. Protonix 40 mg p.o. q.a.m. 6. Metolazone 5 mg p.o. b.i.d. 7. Reglan 5 mg p.o. b.i.d. 8. Prinivil 5 mg p.o. b.i.d. 9. Lantus 15 units subcu q.h.s. 10.NovoLog 3 units subcu a.c. t.i.d. 11.Lasix 80 mg p.o. b.i.d. 12.Tydmi 1 tablet p.o. daily. 13.Lipitor 20 mg q.h.s. 14.Zofran 4 mg q.12 p.r.n. ALLERGIES: None. PHYSICAL EXAMINATION: Temperature 98.7, pulse 105, respiratory rate 16, blood pressure 138/87, pulse ox 98% on room air. GENERAL: Average build, lying in bed, awake. EYES: Pupils equal. Conjunctivae pale. HEENT: External appearance of nose and ears normal. Oral cavity normal. NG tube placed. NECK: JVD not raised. Mass not palpable. RESPIRATORY: Effort normal. LUNGS: Fair air entry. CARDIOVASCULAR: 1st and second sounds no edema. ABDOMEN: Soft with some fullness in the mid abdomen. Bowel sounds are sluggish. No guarding or rigidity. Hemodialysis catheter in the right groin. LYMPHATICS: No lymph nodes palpable in the neck or axilla. PSYCHIATRY: Alert and oriented x3. Mood and affect normal. NEUROLOGICAL: Pupils equal. Cranial nerves grossly intact. Power and sensation grossly intact. INVESTIGATIONS: White count 12.8, hemoglobin 10.8, potassium 4.0, BUN 43, creatinine 4.32. UA 3+ protein. A CT scan of the abdomen results as above. ASSESSMENT: 1. This patient presented with acute abdomen showing free fluid in the abdomen, also small bowel obstruction. Patient did have a right groin dialysis catheter placed and concern is his hemoperitoneum and it is possible this could be a source from the right inguinal area with breach of intra peritoneum and possibly causing secondary ileus. 2. End-stage kidney disease on hemodialysis. 3. New access to the right groin of femoral catheter placed yesterday. 4. Anemia of chronic kidney disease. 5. Gastroesophageal reflux disease. 6. Essential hypertension. 7. Hyperlipidemia. 8. Peripheral neuropathy secondary to diabetes. 9. Diabetes mellitus type 2. Chronically on insulin. PLAN: We will put the patient on a Catapres patch. Otherwise, patient is n.p.o. Accu-Cheks will be closely followed. Hold off oral medications. I will also put a consult for Dr. Jeter from Vascular Surgery. My concern if this is a vascular leak. Thank you Dr. Platt for the consultation. Copy to Dr. Hopper. MMMUNIRL / MIKN: [id number] /
--- NOTE | 2017-12-31 17:32 | P.OP ---
Date of Procedure: 12/31/17 Preoperative Diagnosis: Small bowel obstruction Postoperative Diagnosis: Frozen abdomen Small bowel obstruction. Incisional hernia Adhesions Procedure(s) Performed: Exploratory laparotomy Lysis of adhesions Small bowel resection Repair of incisional hernia Anesthesia: ALLYSON Surgeon: Noah Platt Estimated Blood Loss (ml): 50 Pathology: other (Small bowel) Condition: stable Disposition: PACU Description of Procedure: Patient's placed on the operating table in the supine position. She received general anesthesia. Her abdomen was prepped and draped in usual sterile fashion. The abdomen was entered through a midline incision. There was a small incisional hernia located at the umbilicus. There was significant adhesions to the small bowel. The small bowel appeared to be encapsulated. Patient had a previous history of peritoneal dialysis. It appears that she had evidence of scarring from her peritoneal dialysis catheter. The bowel was grossly dilated. The bowel was followed to the level of the terminal ileum and approximately 5 inches before the ileocecal valve there was normal caliber. At this point the adhesive capsule around the small bowel was released and then the bowel was transected at the terminal ileum with a GI stapler. And then using the Enseal device the mesentery the bowel was divided. And then the jejunum was transected with a GI stapler. And then the and + side functional stapled anastomosis created using TOMER and TA stapler. A 3-0 GI silk sutures was used as a crotch stitch. The abdomen was irrigated. There is no bleeding seen. The fascia was closed loop #1 PDS suture. Skin was closed logan. The prevena wound dressing was applied. Patient top she will was sent to recovery in stable condition.
[2017-12-31] MEDS: MORPHINE SULFATE 4MG/4ML SYRG IVP ONE ×2 (18:10→18:28)
[2017-12-31 18:16] LABS: Glucose,Whole Blood 101 mg/dL (75-99)
[2017-12-31 21:56] LABS: Glucose,Whole Blood 112 mg/dL (75-99)
[2017-12-31] MEDS: INSULIN DETEMIR 100 UNIT/ML 10 ML VIAL SQ SCH (22:17)
[2018-01-01] MEDS ORDERED: MORPHINE SULFATE 2 MG/ML SYRINGE ONE (05:00)
[2018-01-01 07:13] LABS: Glucose,Whole Blood 81 mg/dL (75-99)
[2018-01-01] MEDS: PIPERACILLIN-TAZOBACTAM 3.375 GM in DEXTROSE/WATER 1 50ML.BAG IVPB SCH ×2 (08:17→17:07)
[2018-01-01] MEDS: PANTOPRAZOLE 40 MG/10 ML VIAL IVP SCH ×2 (08:18→21:13)
[2018-01-01] MEDS: METOCLOPRAMIDE 5 MG/ML 2 ML VIAL IVP SCH ×3 (08:18→17:06)
[2018-01-01] MEDS: MORPHINE SULFATE 2 MG/ML SYRINGE IV PRN ×4 (08:18→21:14)
[2018-01-01 09:09] LABS: Anisocytosis Slight; Basophils % (A) 0 %; Eosinophils % (A) 0 %; HCT 31.3 % (34.0-46.0); HGB 9.7 gm/dL (11.4-16.0); Hypochromasia Moderate; Lymphocytes # (A) 0.9 k/uL (1.0-4.8); Lymphocytes % (A) 6 %; MCH 26.8 pg (25.0-35.0); MCHC 31.1 g/dL (31.0-37.0); MCV 86.2 fL (80.0-100.0); Mean Platelet Volume 8.4; Monocytes # (A) 1.2 k/uL (0-1.0); Monocytes % (A) 8 %; Neutrophils # (A) 11.8 k/uL (1.3-7.7); Neutrophils % (A) 84 %; Platelet Count 280 k/uL (150-450); RBC 3.63 m/uL (3.80-5.40); WBC 14.1 k/uL (3.8-10.6)
--- NOTE | 2018-01-01 09:26 | CONS ---
DATE OF CONSULTATION: 01/01/2018 The patient came to the emergency room with abdominal pain. The patient had CTA of the abdomen which showed small bowel obstruction. The patient was seen by Dr. Platt and had exploratory lap and found to have a small-bowel obstruction with some resection of the small bowel. No evidence of hemoperitoneum. The patient has history of chronic renal failure. She had a left upper arm [place]-Otoniel graft placed in the past, which was occluded and she had a thrombectomy at [facility] and after this re- occluded. The patient had multiple catheters placed in the right IJ in the past. Recently , patient needed dialysis. We placed a right femoral catheter, which is functioning well. Medical history of chronic renal failure. Previously patient was on peritoneal dialysis. Now the patient is on hemodialysis. The patient was seen in her room. Patient had exploratory lap. She has been complaining of some abdominal discomfort. Catheter in the right femoral is functioning well. She is right now on hemodialysis. When patient is stable she will need another fistula graft. At this point, patient has very minimum and small vein in the right arm and left arm [place]-Otoniel graft has been occluded x2. We will follow with you. SHANNON / MIKN: [id number] / GENO
--- NOTE | 2018-01-01 10:20 | P.PN ---
Subjective Patient is seen in follow-up for end-stage renal disease. She is maintained on hemodialysis on a Friday schedule via right groin catheter. Patient presented with vomiting and abdominal pain. She was noted to have small bowel obstruction and underwent exploratory laparotomy with lysis of adhesions and small bowel resection on December 31. She is currently resting in bed. She has an NG tube in place. She tolerated hemodialysis well this morning. Vital signs are stable. General: The patient appeared well nourished and normally developed. NG tube in place. HEENT: Head exam is unremarkable. Neck is without jugular venous distension. LUNGS: Lungs are clear to auscultation and percussion. Breath sounds decreased. HEART: Rate and Rhythm are regular. First and second heart sounds normal. No murmurs, rubs or gallops. ABDOMEN: Bowel sounds decreased. Generalized tenderness. EXTREMITITES: No clubbing, cyanosis, or edema. Objective - Vital Signs Vital signs: Vital Signs Temp 99.0 F 01/01/18 09:13 Pulse 97 01/01/18 09:13 Resp 14 01/01/18 09:13 BP 89/58 01/01/18 09:13 Pulse Ox 97 01/01/18 09:13 Intake & Output 12/31/17 01/01/18 01/01/18 18:59 06:59 18:59 Intake Total 1180 Output Total 150 425 Balance 1030 -425 Intake: IV 1180 Output: Gastric Drainage 100 300 Drainage 125 Abdomen 125 Estimated Blood Loss 50 Other: # Voids 0 0 # Bowel Movements 0 - Labs CBC & Chem 7: 01/01/18 08:08 12/31/17 04:24 Labs: Abnormal Lab Results - Last 24 Hours (Table) 12/31/17 12/31/17 12/31/17 Range/Units 11:48 18:14 21:54 WBC (3.8-10.6) k/uL RBC (3.80-5.40) m/uL Hgb (11.4-16.0) gm/dL Hct (34.0-46.0) % RDW (11.5-15.5) % Neutrophils # (1.3-7.7) k/uL Lymphocytes # (1.0-4.8) k/uL Monocytes # (0-1.0) k/uL POC Glucose (mg/dL) 101 H 112 H (75-99) mg/dL Plasma Lactic Acid Mic (0.7-2.0) mmol/L Phosphorus 4.8 H (2.5-4.5) mg/dL 01/01/18 01/01/18 Range/Units 00:35 08:08 WBC 14.1 H (3.8-10.6) k/uL RBC 3.63 L (3.80-5.40) m/uL Hgb 9.7 L (11.4-16.0) gm/dL Hct 31.3 L (34.0-46.0) % RDW 18.0 H (11.5-15.5) % Neutrophils # 11.8 H (1.3-7.7) k/uL Lymphocytes # 0.9 L (1.0-4.8) k/uL Monocytes # 1.2 H (0-1.0) k/uL POC Glucose (mg/dL) (75-99) mg/dL Plasma Lactic Acid Mic 0.6 L (0.7-2.0) mmol/L Phosphorus (2.5-4.5) mg/dL Assessment and Plan Plan: Assessment: 1. End-stage renal disease maintained on hemodialysis on a Friday schedule via right groin permacath, which was placed groin permacath . She had a upper extremity AV graft which occluded. 2. Small bowel obstruction with NG tube in place, status post exploratory laparotomy with lysis of adhesions and small bowel resection on 12/31/2017. 3. Hypertension with chronic kidney disease. Controlled. Blood pressures on the lower side this morning. 4. Insulin-dependent diabetes mellitus. 5. Chronic kidney disease mineral bone disease. Phosphorous at goal. 6. Anemia of chronic kidney disease. Plan: Schedule for hemodialysis tomorrow. Add Aranesp. Hold antihypertensives for systolic blood pressure less than 120.
[2018-01-01] MEDS: FUROSEMIDE 10 MG/ML 4 ML VIAL IV SCH (10:28)
[2018-01-01] MEDS: METOLAZONE 5 MG TAB PO SCH ×2 (10:29→21:13)
[2018-01-01 11:31] LABS: Glucose,Whole Blood 79 mg/dL (75-99)
[2018-01-01 11:41] LABS: Albumin 2.7 g/dL (3.5-5.0); Calcium 7.7 mg/dL (8.4-10.2); Potassium 4.5 mmol/L (3.5-5.1); Total Bilirubin 0.4 mg/dL (0.2-1.3); Total Protein 5.3 g/dL (6.3-8.2)
[2018-01-01] MEDS: DARBEPOETIN ALFA 40 MCG/0.4 ML SYRINGE SQ SCH (13:31)
--- NOTE | 2018-01-01 16:06 | P.PN ---
Subjective Progress Note Date: 01/01/18 42-year-old admitted with intractable right upper quadrant pain with nausea vomiting suspect due to frozen abdomen with a small bowel obstruction. Patient sitting up in bed states abdominal pain improved nasal gastric tube in place surgical dressing dry Postop December 31 exploratory laparotomy, lysis of adhesion, small bowel resection, repair of incisional hernia for frozen abdomen with small bowel obstruction with adhesions Objective - Vital Signs Vital signs: Vital Signs Temp 99.7 F H 01/01/18 14:15 Pulse 103 H 01/01/18 14:15 Resp 18 01/01/18 15:35 BP 76/46 01/01/18 14:15 Pulse Ox 97 01/01/18 14:15 Intake & Output 12/31/17 01/01/18 01/01/18 18:59 06:59 18:59 Intake Total 1180 Output Total 150 425 0 Balance 1030 -425 0 Intake: IV 1180 Output: Gastric Drainage 100 300 Drainage 125 Abdomen 125 Urine 0 Estimated Blood Loss 50 Other: # Voids 0 0 # Bowel Movements 0 - Exam Physical exam 42-year-old female sitting up in bed nasal gastric tube in place family member at bedside states pain medication effective for pain control Lungs adequate air movement bilaterally on room air Heart S1-S2 audible regular Abdomen prevera wound system in place few hypoactive bowel tones surgical tenderness appropriate not distended no nausea no vomiting nasal gastric tube to suction brown secretions in the canister Extremities no edema noted - Labs CBC & Chem 7: 01/01/18 08:08 01/01/18 10:59 Labs: Abnormal Lab Results - Last 24 Hours (Table) 12/31/17 12/31/17 01/01/18 Range/Units 18:14 21:54 00:35 WBC (3.8-10.6) k/uL RBC (3.80-5.40) m/uL Hgb (11.4-16.0) gm/dL Hct (34.0-46.0) % RDW (11.5-15.5) % Neutrophils # (1.3-7.7) k/uL Lymphocytes # (1.0-4.8) k/uL Monocytes # (0-1.0) k/uL Carbon Dioxide (22-30) mmol/L BUN (7-17) mg/dL Creatinine (0.52-1.04) mg/dL Glucose (74-99) mg/dL POC Glucose (mg/dL) 101 H 112 H (75-99) mg/dL Plasma Lactic Acid Mic 0.6 L (0.7-2.0) mmol/L Calcium (8.4-10.2) mg/dL Total Protein (6.3-8.2) g/dL Albumin (3.5-5.0) g/dL 01/01/18 01/01/18 Range/Units 08:08 10:59 WBC 14.1 H (3.8-10.6) k/uL RBC 3.63 L (3.80-5.40) m/uL Hgb 9.7 L (11.4-16.0) gm/dL Hct 31.3 L (34.0-46.0) % RDW 18.0 H (11.5-15.5) % Neutrophils # 11.8 H (1.3-7.7) k/uL Lymphocytes # 0.9 L (1.0-4.8) k/uL Monocytes # 1.2 H (0-1.0) k/uL Carbon Dioxide 18 L (22-30) mmol/L BUN 25 H (7-17) mg/dL Creatinine 4.81 H (0.52-1.04) mg/dL Glucose 67 L (74-99) mg/dL POC Glucose (mg/dL) (75-99) mg/dL Plasma Lactic Acid Mic (0.7-2.0) mmol/L Calcium 7.7 L (8.4-10.2) mg/dL Total Protein 5.3 L (6.3-8.2) g/dL Albumin 2.7 L (3.5-5.0) g/dL Microbiology - Last 24 Hours (Table) 12/31/17 10:56 Blood Culture - Preliminary Blood No Growth after 24 hours Assessment and Plan Assessment: Impression Present on admission intractable nausea vomiting with abdominal pain suspect due to complete high-grade bowel obstruction per CAT scan imaging End-stage renal disease on hemodialysis Friday schedule Status post December 30 permacath placed right groin Type 2 diabetes insulin requiring Anemia of chronic illness Hypertension with chronic kidney disease Present on admission leukocytosis suspect reactive History of a cholecystectomy 2 years prior History of a bowel resection due to incarcerated hernia 2 years prior Status post repair of incisional hernia, small bowel resection, lysis of adhesions, exploratory laparotomy done on december 31 Plan Patient to use incentive spirometer every 1 hour while awake Keep the nasogastric tube to suction IV fluid at 75 an hour per nephrology's recommendations hemodialysis schedule per nephrology recommendations Anti-emetics as ordered IV Zosyn as ordered DVT and GI prophylaxis Pain control Increase activity The above impression and plan of care have been discussed and directed by signing physician. Nava Ayala nurse practitioner acting as scribe for signing physician.
[2018-01-01 17:28] LABS: Glucose,Whole Blood 73 mg/dL (75-99)
[2018-01-01] MEDS: INSULIN DETEMIR 100 UNIT/ML 10 ML VIAL SQ SCH (21:12)
[2018-01-01 21:20] LABS: Glucose,Whole Blood 78 mg/dL (75-99)
[2018-01-02] MEDS: METOCLOPRAMIDE 5 MG/ML 2 ML VIAL IVP SCH ×5 (01:57→23:18)
[2018-01-02 02:07] LABS: Glucose,Whole Blood 89 mg/dL (75-99)
[2018-01-02] MEDS: MORPHINE SULFATE 2 MG/ML SYRINGE IV PRN ×5 (04:22→23:23)
[2018-01-02] MEDS: PIPERACILLIN-TAZOBACTAM 3.375 GM in DEXTROSE/WATER 1 50ML.BAG IVPB SCH ×2 (06:06→18:07)
[2018-01-02 07:27] LABS: Glucose,Whole Blood 88 mg/dL (75-99)
[2018-01-02] MEDS: METOLAZONE 5 MG TAB PO SCH (07:57)
[2018-01-02] MEDS: PANTOPRAZOLE 40 MG/10 ML VIAL IVP SCH ×2 (08:11→21:19)
--- NOTE | 2018-01-02 09:51 | P.PN ---
Subjective Patient is seen in follow-up for end-stage renal disease. She is maintained on hemodialysis on a Friday schedule via right groin catheter. Currently seen was undergoing hemodialysis. Patient presented with vomiting and abdominal pain. She was noted to have small bowel obstruction and underwent exploratory laparotomy with lysis of adhesions and small bowel resection on December 31. She is currently resting in bed. She has an NG tube in place. Denies any significant pain. Vital signs are stable. General: The patient appeared well nourished and normally developed. NG tube in place. HEENT: Head exam is unremarkable. Neck is without jugular venous distension. LUNGS: Lungs are clear to auscultation and percussion. Breath sounds decreased. HEART: Rate and Rhythm are regular. First and second heart sounds normal. No murmurs, rubs or gallops. ABDOMEN: Bowel sounds decreased. Generalized tenderness. EXTREMITITES: No clubbing, cyanosis, or edema. Objective - Vital Signs Vital signs: Vital Signs Temp 98.6 F 01/02/18 06:19 Pulse 102 H 01/02/18 06:19 Resp 16 01/02/18 06:19 BP 100/64 01/02/18 06:19 Pulse Ox 95 01/02/18 06:19 Intake & Output 01/01/18 01/02/18 01/02/18 18:59 06:59 18:59 Output Total 0 200 Balance 0 -200 Output: Drainage 200 Abdomen 200 Urine 0 Other: # Voids 0 - Labs CBC & Chem 7: 01/01/18 08:08 01/01/18 10:59 Labs: Abnormal Lab Results - Last 24 Hours (Table) 01/01/18 01/01/18 Range/Units 10:59 17:23 Carbon Dioxide 18 L (22-30) mmol/L BUN 25 H (7-17) mg/dL Creatinine 4.81 H (0.52-1.04) mg/dL Glucose 67 L (74-99) mg/dL POC Glucose (mg/dL) 73 L (75-99) mg/dL Calcium 7.7 L (8.4-10.2) mg/dL Total Protein 5.3 L (6.3-8.2) g/dL Albumin 2.7 L (3.5-5.0) g/dL Microbiology - Last 24 Hours (Table) 12/31/17 10:56 Blood Culture - Preliminary Blood No Growth after 24 hours Assessment and Plan Plan: Assessment: 1. End-stage renal disease maintained on hemodialysis on a Friday schedule via right groin permacath, which was placed groin permacath . She had a upper extremity AV graft which occluded. 2. Small bowel obstruction with NG tube in place, status post exploratory laparotomy with lysis of adhesions and small bowel resection on 12/31/2017. 3. Hypertension with chronic kidney disease. Controlled. Blood pressures have been on the lower side - clonidine patch was discontinued. 4. Insulin-dependent diabetes mellitus. 5. Chronic kidney disease mineral bone disease. Phosphorous at goal. 6. Anemia of chronic kidney disease. Plan: Currently seen while undergoing hemodialysis. Next treatment on Friday. Maintain Aranesp. Hold antihypertensives for systolic blood pressure less than 120.
[2018-01-02 10:13] LABS: Anisocytosis Slight; Basophils % (A) 0 %; Eosinophils # (A) 0.2 k/uL (0-0.7); Eosinophils % (A) 2 %; HCT 28.4 % (34.0-46.0); HGB 8.7 gm/dL (11.4-16.0); Hypochromasia Marked; Lymphocytes # (A) 0.7 k/uL (1.0-4.8); Lymphocytes % (A) 8 %; MCH 27.2 pg (25.0-35.0); MCHC 30.5 g/dL (31.0-37.0); MCV 89.2 fL (80.0-100.0); Mean Platelet Volume 7.3; Monocytes # (A) 0.3 k/uL (0-1.0); Monocytes % (A) 4 %; Neutrophils % (A) 86 %; Platelet Count 315 k/uL (150-450); RBC 3.18 m/uL (3.80-5.40); RDW 18.1 % (11.5-15.5); WBC 9.3 k/uL (3.8-10.6)
[2018-01-02 10:39] LABS: Albumin 2.5 g/dL (3.5-5.0); Total Bilirubin 0.4 mg/dL (0.2-1.3); Total Protein 5.2 g/dL (6.3-8.2)
[2018-01-02 11:01] LABS: Calcium 7.7 mg/dL (8.4-10.2); Potassium 3.2 mmol/L (3.5-5.1)
[2018-01-02 11:22] LABS: Poikilocytosis (M) Present
[2018-01-02 11:30] LABS: Glucose,Whole Blood 74 mg/dL (75-99)
--- NOTE | 2018-01-02 14:20 | P.PN ---
Subjective Progress Note Date: 01/02/18 42-year-old female sitting up in bed with sitter at the bedside just completed hemodialysis patient states pain medication effective for pain control nasal gastric tube suction. Without 100 mL's of dark secretions for the last 8 hours. States is not passing gas. Surgical dressing site dry. Few hypoactive bowel tones noted .Postop December 31 exploratory laparotomy, lysis of adhesion, small bowel resection , repair of incisional hernia for frozen abdomen with small bowel obstruction with adhesions Objective - Vital Signs Vital signs: Vital Signs Temp 98.6 F 01/02/18 06:19 Pulse 102 H 01/02/18 06:19 Resp 16 01/02/18 06:19 BP 100/64 01/02/18 06:19 Pulse Ox 95 01/02/18 06:19 Intake & Output 01/01/18 01/02/18 01/02/18 18:59 06:59 18:59 Output Total 0 200 0 Balance 0 -200 0 Output: Drainage 200 Abdomen 200 Urine 0 0 Other: # Voids 0 0 # Bowel Movements 0 - Exam Physical exam 42-year-old female sitting up in bed with visitor at bedside just completed hemodialysis Lungs adequate air movement bilaterally on room air no cough noted Heart S1-S2 audible regular denying chest pain Abdomen surgical dressing dry with a prevera wound system in place few hypoactive bowel tones surgical tenderness appropriate not distended no nausea no vomiting nasal gastric tube to suction brown secretions in the canister no stool Extremities no edema noted - Labs CBC & Chem 7: 01/02/18 09:15 01/02/18 09:15 Labs: Abnormal Lab Results - Last 24 Hours (Table) 01/01/18 01/02/18 01/02/18 Range/Units 17:23 09:15 09:15 RBC 3.18 L (3.80-5.40) m/uL Hgb 8.7 L (11.4-16.0) gm/dL Hct 28.4 L (34.0-46.0) % MCHC 30.5 L (31.0-37.0) g/dL RDW 18.1 H (11.5-15.5) % Neutrophils # 8.0 H (1.3-7.7) k/uL Lymphocytes # 0.7 L (1.0-4.8) k/uL Potassium 3.2 L (3.5-5.1) mmol/L BUN 20 H (7-17) mg/dL Creatinine 3.42 H (0.52-1.04) mg/dL POC Glucose (mg/dL) 73 L (75-99) mg/dL Calcium 7.7 L (8.4-10.2) mg/dL Total Protein 5.2 L (6.3-8.2) g/dL Albumin 2.5 L (3.5-5.0) g/dL 01/02/18 Range/Units 11:24 RBC (3.80-5.40) m/uL Hgb (11.4-16.0) gm/dL Hct (34.0-46.0) % MCHC (31.0-37.0) g/dL RDW (11.5-15.5) % Neutrophils # (1.3-7.7) k/uL Lymphocytes # (1.0-4.8) k/uL Potassium (3.5-5.1) mmol/L BUN (7-17) mg/dL Creatinine (0.52-1.04) mg/dL POC Glucose (mg/dL) 74 L (75-99) mg/dL Calcium (8.4-10.2) mg/dL Total Protein (6.3-8.2) g/dL Albumin (3.5-5.0) g/dL Microbiology - Last 24 Hours (Table) 12/31/17 10:56 Blood Culture - Preliminary Blood No Growth after 48 hours Assessment and Plan Assessment: Impression Present on admission intractable nausea vomiting with abdominal pain suspect due to complete high-grade bowel obstruction per CAT scan imaging End-stage renal disease on hemodialysis Friday schedule Status post December 30 permacath placed right groin Type 2 diabetes insulin requiring Anemia of chronic illness Hypertension with chronic kidney disease Present on admission leukocytosis suspect reactive History of a cholecystectomy 2 years prior History of a bowel resection due to incarcerated hernia 2 years prior Status post repair of incisional hernia, small bowel resection, lysis of adhesions, exploratory laparotomy done on december 31 Hypokalemia corrected Plan Potassium replaced per nephrology's recommendations Patient to use incentive spirometer every 1 hour while awake Keep the nasogastric tube to suction IV fluid at 75 an hour per nephrology's recommendations hemodialysis schedule per nephrology recommendations Anti-emetics as ordered IV Zosyn as ordered DVT and GI prophylaxis Pain control Increase activity The above impression and plan of care have been discussed and directed by signing physician. Nava Ayala nurse practitioner acting as scribe for signing physician.
[2018-01-02] MEDS: POTASSIUM CHLORIDE 20 MEQ in WATER FOR INJECTION 1 100ML.BAG IVPB SCH ×2 (14:47→17:08)
[2018-01-02 17:04] LABS: Glucose,Whole Blood 82 mg/dL (75-99)
--- NOTE | 2018-01-02 17:57 | PN ---
PROGRESS NOTE DATE OF SERVICE: 01/01/2018 PRESENTING COMPLAINT: Abdominal surgery. INTERVAL HISTORY: This patient was seen by me yesterday on 01/01/2018. The patient is status post surgery for small-bowel obstruction. There was no intraperitoneal bleed. Patient's blood pressure has been running on the lower side. Did have the nurse check with Nephrology and patient's Catapres patch was discontinued. REVIEW OF SYSTEMS: Done for constitutional, cardiovascular, GI, pulmonary; relevant findings as above. CURRENT MEDICATIONS: Reviewed, include IV fluids. PHYSICAL EXAMINATION: Temperature 99.2, pulse 106, respirations 18, blood pressure 93/60 pulse ox 99% on room air. GENERAL APPEARANCE: Lying in bed, tired-appearing. EYES: Pupils equal. Conjunctivae pale. HEENT: External nose, ears normal. Oral cavity dry. NG tube in place. NECK: JVD not raised. Mass not palpable. RESPIRATORY: Effort normal. Lungs are clear. CARDIOVASCULAR: First and second sounds normal. No edema. ABDOMEN: Tender. Dressing in place. PSYCHIATRY: Alert and oriented x3. Mood and affect normal. Right groin has a hemodialysis catheter in place. INVESTIGATIONS: White count 14.1, hemoglobin 9.7. Potassium 4.5, BUN 25, creatinine 4.81. ASSESSMENT: 1. Small-bowel obstruction, status post surgery with nasogastric tube in place. 2. End-stage kidney disease on hemodialysis. 3. Right groin femoral catheter for hemodialysis access. 4. Anemia of chronic kidney disease. 5. Gastroesophageal reflux disease. 6. Essential hypertension, history of. 7. Postop hypotension, multifactorial. 8. Hyperlipidemia. 9. Peripheral neuropathy secondary to diabetes. 10.Diabetes mellitus type 2, chronically on insulin. PLAN: Getting IV fluids. Antihypertensive has been discontinued. Care was discussed with the patient. Patient to continue on hemodialysis schedule. MMODL / IJN: [id number] /
--- NOTE | 2018-01-02 18:03 | PN ---
PROGRESS NOTE DATE OF SERVICE: 01/02/2018 PRESENTING COMPLAINT: Abdominal surgery. INTERVAL HISTORY: Patient is status post small bowel surgery. NG tube remains in place. She has not passed any flatus. Patient was hemodialyzed today. Lying in bed. Abdominal pain is present. The patient did actually get up and walk a bit today. REVIEW OF SYSTEMS: Done for constitutional, cardiovascular, GI, pulmonary; relevant findings as above. CURRENT MEDICATIONS: Reviewed. They include IV Zosyn. PHYSICAL EXAMINATION: Temperature 98.6, pulse 102, respiration 16, blood pressure 100/64, pulse ox 95% on room air. GENERAL APPEARANCE: Lying in bed, awake. EYES: Pupils equal. Conjunctivae pale. HEENT: External appearance of nose and ears normal. Oral cavity normal. NG tube in place. NECK: JVD unable to assess. Mass not palpable. RESPIRATORY: Effort normal. LUNGS: Fair air entry. CARDIOVASCULAR: First and second sounds normal. No edema. ABDOMEN: Tender. Soft. Bowel sounds sluggish. Dressing in place. RIGHT GROIN: Hemodialysis catheter present. PSYCHIATRY: Alert and oriented x3. Mood and affect normal. INVESTIGATIONS: No blood work from today. ASSESSMENT: 1. Small bowel obstruction, status post surgery. 2. End-stage kidney disease, on hemodialysis. 3. Right groin femoral catheter for hemodialysis access. 4. Anemia of chronic kidney disease. 5. Gastroesophageal reflux disease. 6. Hyperlipidemia. 7. Peripheral neuropathy secondary to diabetes. 8. Diabetes mellitus, type 2, chronically on insulin. PLAN: Continue current medication and treatment plan. Patient's sugar is tending to run on the lower side. Will start the patient on D5W. Still blood pressure is running a bit on the lower side. Will follow. MMODL / IJN: [id number] /
[2018-01-02] MEDS: DEXTROSE 5%-0.9% NACL 1,000 ML IV SCH (18:07)
[2018-01-02 20:59] LABS: Glucose,Whole Blood 112 mg/dL (75-99)
[2018-01-02] MEDS: INSULIN DETEMIR 100 UNIT/ML 10 ML VIAL SQ SCH (21:17)
[2018-01-03 02:11] LABS: Glucose,Whole Blood 137 mg/dL (75-99)
[2018-01-03] MEDS: PIPERACILLIN-TAZOBACTAM 3.375 GM in DEXTROSE/WATER 1 50ML.BAG IVPB SCH ×2 (06:14→17:20)
[2018-01-03] MEDS: METOCLOPRAMIDE 5 MG/ML 2 ML VIAL IVP SCH ×4 (06:14→23:07)
[2018-01-03 07:44] LABS: Glucose,Whole Blood 140 mg/dL (75-99)
[2018-01-03] MEDS: PANTOPRAZOLE 40 MG/10 ML VIAL IVP SCH ×2 (08:15→21:25)
[2018-01-03 08:29] LABS: Albumin 2.4 g/dL (3.5-5.0); Calcium 8.5 mg/dL (8.4-10.2); Potassium 4.8 mmol/L (3.5-5.1); Total Bilirubin 0.4 mg/dL (0.2-1.3); Total Protein 5.2 g/dL (6.3-8.2)
[2018-01-03] MEDS: MORPHINE SULFATE 2 MG/ML SYRINGE IV PRN ×4 (09:37→23:51)
--- NOTE | 2018-01-03 11:12 | P.PN ---
Subjective Progress Note Date: 01/03/18 Patient is status post laparotomy for bowel obstruction. She is also end-stage renal disease on dialysis. No reports of flatus. No reports of bowel movement. She is tolerating ice chips. NG tube output still bilious. Objective - Vital Signs Vital signs: Vital Signs Temp 98.5 F 01/03/18 07:00 Pulse 99 01/03/18 07:00 Resp 20 01/03/18 07:00 BP 120/72 01/03/18 07:00 Pulse Ox 98 01/03/18 07:00 Intake & Output 01/02/18 01/03/18 01/03/18 18:59 06:59 18:59 Intake Total 0 Output Total 200 Balance -200 Weight 60.781 kg Intake: Oral 0 Output: Drainage 200 Abdomen 200 Urine 0 Other: # Voids 0 0 # Bowel Movements 0 - Exam GENERAL: Well developed and in no acute distress. Pleasant. HEENT: No sclera icterus. Extraocular movements grossly intact. Moist buccal mucosa. Head is atraumatic, normocephalic. Hears conversational speech. No nasal drainage. NECK: Supple without lymphadenopathy. CHEST: Non-labored respirations and equal bilateral excursions. CARDIOVASCULAR: Regular rate and rhythm. Palpable 2+ radial pulses. ABDOMEN: Soft, stress and intact. No peritonitis. MUSCULOSKELETAL: No clubbing, cyanosis or edema. NEUROLOGIC: No focal or lateralizing signs. PSYCH: Appropriate affect. Alert and oriented to person, place and time. SKIN: Good skin turgor. Well perfused. - Labs CBC & Chem 7: 01/02/18 09:15 01/03/18 07:25 Labs: Abnormal Lab Results - Last 24 Hours (Table) 01/02/18 01/02/18 01/02/18 Range/Units 09:15 11:24 20:58 RBC 3.18 L (3.80-5.40) m/uL Hgb 8.7 L (11.4-16.0) gm/dL Hct 28.4 L (34.0-46.0) % MCHC 30.5 L (31.0-37.0) g/dL RDW 18.1 H (11.5-15.5) % Neutrophils # 8.0 H (1.3-7.7) k/uL Lymphocytes # 0.7 L (1.0-4.8) k/uL Carbon Dioxide (22-30) mmol/L BUN (7-17) mg/dL Creatinine (0.52-1.04) mg/dL Glucose (74-99) mg/dL POC Glucose (mg/dL) 74 L 112 H (75-99) mg/dL Total Protein (6.3-8.2) g/dL Albumin (3.5-5.0) g/dL 01/03/18 01/03/18 01/03/18 Range/Units 02:07 07:25 07:31 RBC (3.80-5.40) m/uL Hgb (11.4-16.0) gm/dL Hct (34.0-46.0) % MCHC (31.0-37.0) g/dL RDW (11.5-15.5) % Neutrophils # (1.3-7.7) k/uL Lymphocytes # (1.0-4.8) k/uL Carbon Dioxide 18 L (22-30) mmol/L BUN 28 H (7-17) mg/dL Creatinine 4.99 H (0.52-1.04) mg/dL Glucose 135 H (74-99) mg/dL POC Glucose (mg/dL) 137 H 140 H (75-99) mg/dL Total Protein 5.2 L (6.3-8.2) g/dL Albumin 2.4 L (3.5-5.0) g/dL Microbiology - Last 24 Hours (Table) 12/31/17 10:56 Blood Culture - Preliminary Blood No Growth after 48 hours Assessment and Plan (1) Small bowel obstruction Current Visit: Yes Status: Acute Code(s): K56.609 - UNSP INTESTNL OBST, UNSP TO PARTIAL VERSUS COMPLETE OBST SNOMED Code(s): 971090352 (2) End stage renal disease on dialysis due to type 2 diabetes mellitus Current Visit: No Status: Acute Code(s): E11.22 - TYPE 2 DIABETES MELLITUS W DIABETIC CHRONIC KIDNEY DISEASE SNOMED Code(s): 67628767859185 Plan: 1. Continue NG tube. 2. Hold start of diet pending resumption of bowel function 3. Hemodialysis management per nephrology
[2018-01-03 12:04] LABS: Glucose,Whole Blood 144 mg/dL (75-99)
[2018-01-03] MEDS: DEXTROSE 5%-0.9% NACL 1,000 ML IV SCH (14:57)
[2018-01-03 17:19] LABS: Glucose,Whole Blood 140 mg/dL (75-99)
--- NOTE | 2018-01-03 17:20 | PN ---
PROGRESS NOTE Patient is seen for followup for end-stage renal disease. She was dialyzed yesterday. Her femoral catheter is working well. Patient is status post bowel resection for bowel obstruction. She had lysis of adhesions and explorative laparotomy. Currently has an NG tube in place. Overall feeling better. Patient is taking sips of water. PHYSICAL EXAMINATION: Blood pressure is 120/72, heart rate 99 per minute. She is afebrile. EXAMINATION OF THE HEART: S1, S2. EXAMINATION OF LUNGS: Bilateral breath sounds are heard. ABDOMEN: Soft, non-tender. Examination of lower extremities shows no significant edema. ANIMAL CARE ASSISTANT exam is grossly intact. LABS: Sodium 138, potassium 4.8. CO2 is 18, albumin 2.4. ASSESSMENT: 1. End-stage renal disease, on hemodialysis on a Friday, Friday, Friday schedule. Will arrange for hemodialysis on Friday. 2. Bowel obstruction, status post lysis of adhesions and explorative laparotomy and bowel resection. 3. Hypertension, currently controlled. 4. Chronic kidney disease mineral bone disorder. 5. Malfunctioning catheter, status post new femoral catheter placement, which is currently functioning well. PLAN: We can discontinue the IV fluids tomorrow and hemodialysis on 01/04/2018. MMODL / IJN: [id number] /
[2018-01-03] MEDS: ONDANSETRON 4 MG/2 ML VIAL IVP PRN (19:52)
[2018-01-03 21:08] LABS: Glucose,Whole Blood 154 mg/dL (75-99)
[2018-01-03] MEDS: INSULIN DETEMIR 100 UNIT/ML 10 ML VIAL SQ SCH (21:26)
[2018-01-04] MEDS: MORPHINE SULFATE 2 MG/ML SYRINGE IV PRN ×4 (03:47→23:53)
[2018-01-04] MEDS: ONDANSETRON 4 MG/2 ML VIAL IVP PRN (03:53)
[2018-01-04] MEDS: METOCLOPRAMIDE 5 MG/ML 2 ML VIAL IVP SCH ×3 (05:41→17:13)
[2018-01-04] MEDS: PIPERACILLIN-TAZOBACTAM 3.375 GM in DEXTROSE/WATER 1 50ML.BAG IVPB SCH ×2 (05:41→17:12)
[2018-01-04] MEDS ORDERED: DEXTROSE 50%-WATER 50 ML SYRINGE IVP ONE ×2 (07:14→12:35)
[2018-01-04] MEDS ORDERED: DEXTROSE 50%-WATER 50 ML SYRINGE IVP STA (07:15)
[2018-01-04] MEDS: DEXTROSE 5%-0.9% NACL 1,000 ML IV SCH (07:57)
[2018-01-04] MEDS: PANTOPRAZOLE 40 MG/10 ML VIAL IVP SCH (07:57)
[2018-01-04 08:04] LABS: Glucose,Whole Blood 168 mg/dL (75-99)
[2018-01-04 08:04] LABS: Glucose,Whole Blood 62 mg/dL (75-99)
[2018-01-04 12:42] LABS: Glucose,Whole Blood 49 mg/dL (75-99)
[2018-01-04 12:57] LABS: Glucose,Whole Blood 148 mg/dL (75-99)
--- NOTE | 2018-01-04 13:48 | P.PN ---
Subjective Progress Note Date: 01/04/18 Patient is status post laparotomy for bowel obstruction. She reports sore throat from her NG tube. She is only done ice chips. Blood sugars are long 40s. She reports low blood sugar episodes. She is receiving hemodialysis. Still no flatus or bowel function. NG tube output bilious Objective - Vital Signs Vital signs: Vital Signs Temp 98.3 F 01/04/18 07:09 Pulse 94 01/04/18 07:09 Resp 16 01/04/18 07:09 BP 116/70 01/04/18 07:09 Pulse Ox 96 01/04/18 07:09 Intake & Output 01/03/18 01/04/18 01/04/18 18:59 06:59 18:59 Weight 62 kg Other: Voiding Method Toilet # Voids 0 1 - Exam GENERAL: Well developed and in no acute distress. Pleasant. HEENT: No sclera icterus. Extraocular movements grossly intact. Moist buccal mucosa. Head is atraumatic, normocephalic. Hears conversational speech. No nasal drainage. NECK: Supple without lymphadenopathy. CHEST: Non-labored respirations and equal bilateral excursions. CARDIOVASCULAR: Regular rate and rhythm. Palpable 2+ radial pulses. ABDOMEN: Soft, dressing PREVENA intact. No peritonitis. MUSCULOSKELETAL: No clubbing, cyanosis or edema. NEUROLOGIC: No focal or lateralizing signs. PSYCH: Appropriate affect. Alert and oriented to person, place and time. SKIN: Good skin turgor. Well perfused. - Labs CBC & Chem 7: 01/02/18 09:15 01/03/18 07:25 Labs: Abnormal Lab Results - Last 24 Hours (Table) 01/03/18 01/03/18 01/04/18 Range/Units 17:07 20:56 07:11 POC Glucose (mg/dL) 140 H 154 H 62 L (75-99) mg/dL 01/04/18 01/04/18 01/04/18 Range/Units 07:36 12:31 12:54 POC Glucose (mg/dL) 168 H 49 L 148 H (75-99) mg/dL Microbiology - Last 24 Hours (Table) 12/31/17 10:56 Blood Culture - Preliminary Blood No Growth after 96 hours Assessment and Plan (1) Small bowel obstruction Current Visit: Yes Status: Acute Code(s): K56.609 - UNSP INTESTNL OBST, UNSP TO PARTIAL VERSUS COMPLETE OBST SNOMED Code(s): 380604523 (2) End stage renal disease on dialysis due to type 2 diabetes mellitus Current Visit: No Status: Acute Code(s): E11.22 - TYPE 2 DIABETES MELLITUS W DIABETIC CHRONIC KIDNEY DISEASE SNOMED Code(s): 81592218586589 Plan: 1. Will add Popsicles to help with low blood sugars. 2. Decision on parenteral nutrition to be decided by Dr. Platt. 3. Ambulation 4 times daily. 4. Continue NG tube. 5. Await bowel function.
--- NOTE | 2018-01-04 15:07 | PN ---
PROGRESS NOTE DATE OF SERVICE: 01/03/18. PRESENTING COMPLAINT: Abdominal surgery. INTERVAL HISTORY: Patient is seen by me yesterday. Status post bowel surgery for obstruction. NG tube remains in place. Patient has been out of bed. Has not passed any flatus. Some abdominal pain is present. No nausea, vomiting. NG tube to suction remains in place. REVIEW OF SYSTEMS: Done for constitutional, cardiovascular, GI, pulmonary; relevant findings as above. CURRENT MEDICATIONS: Reviewed that include IV Zosyn. PHYSICAL EXAMINATION: Temperature 98.5, pulse 99, respiration 20, blood pressure 120/72, pulse ox 98% on room. GENERAL APPEARANCE: Lying in bed awake. EYES: Pupils equal. Conjunctivae normal. HEENT: External appearance of nose and ears normal. Oral cavity dry. NG tube in place. NECK: JVD unable to assess. Mass not palpable. RESPIRATORY: Effort, lungs fair entry. CARDIOVASCULAR: First and second sounds, no edema. ABDOMEN: Tender, soft. Bowel sounds sluggish. Dressing and wound VAC in place. PSYCHIATRY: Alert and oriented x3. Mood and affect is normal. INVESTIGATIONS: Potassium 4.8. Accu-Cheks are noted. ASSESSMENT: 1. Small-bowel obstruction, status post surgery. 2. End-stage kidney disease on hemodialysis, right groin femoral catheter for hemodialysis. 3. Anemia of chronic kidney disease. 4. Gastroesophageal reflux disease. 5. Hyperlipidemia. 6. Peripheral neuropathy secondary to diabetes. 7. Diabetes mellitus type 2, chronically on insulin. PLAN: Continue current medication and treatment plan. The patient has been put on D5W. The patient has been out of bed. MMODL / IJN: [id number] /
--- NOTE | 2018-01-04 15:13 | PN ---
PROGRESS NOTE DATE OF SERVICE: 01/04/18. PRESENTING COMPLAINT: Abdominal surgery. INTERVAL HISTORY: Patient is status post abdominal surgery for obstruction. NG tube remains in place. Patient has been out of bed. Has not passed any flatus. The patient is on a Friday, Friday and Friday hemodialysis schedule. Some pain is present. REVIEW OF SYSTEMS: Done for constitutional, cardiovascular, GI, pulmonary; relevant findings as above. CURRENT MEDICATIONS: Include IV Zosyn. PHYSICAL EXAMINATION: Temperature 98.3, pulse 94, respirations 16, blood pressure 116/70, pulse ox 98% on room air. GENERAL APPEARANCE: Lying in bed, tired appearing. EYES: Pupils equal. Conjunctivae are pale. HEENT: External nose and ears are normal. Oral cavity dry. NG tube in place. NECK: JVD not raised. Mass not palpable. RESPIRATORY: Effort, lungs fair entry. CARDIOVASCULAR: First and second sounds. No edema. ABDOMEN: Tender. Soft. Wound VAC in place. PSYCHIATRY: Alert and oriented x3. Mood and affect normal. INVESTIGATION: Accu-Cheks 62, 168, 49. ASSESSMENT: 1. Small bowel obstruction, status post surgery. 2. End-stage kidney disease on hemodialysis. 3. Right transfemoral catheter for hemodialysis. 4. Anemia of chronic kidney disease. 5. Gastroesophageal reflux disease. 6. Hyperlipidemia. 7. Peripheral neuropathy secondary to diabetes. 8. Diabetes mellitus type 2, uncontrolled from hypoglycemia, chronically on insulin. PLAN: I spoke to nurse to see if okay with surgery to start off with TPN. The patient's Levemir in the meantime will be discontinued. MMODL / IJN: [id number] /
--- NOTE | 2018-01-04 16:01 | PN ---
PROGRESS NOTE The patient is seen for followup for end-stage renal disease. She is scheduled for hemodialysis tomorrow. Patient is status post exploratory laparotomy with lysis of adhesion and bowel resected. The patient has an NG tube in place and she continues to have significant drainage from the NG tube. PHYSICAL EXAMINATION: Blood pressure is 116/70, heart rate 94 per minute. She is afebrile. Examination shows patient is euvolemic with no evidence of edema bilateral lower extremities. Abdomen is soft, nontender. LABS: Not available from today. Potassium was 4.8 yesterday. ASSESSMENT: 1. End-stage renal disease, on hemodialysis on a Friday, Friday, Friday schedule. We will arrange for hemodialysis in a.m. 2. Bowel obstruction, status post exploratory laparotomy and lysis of adhesions and small bowel resection. Currently with NG tube in place. 3. Hypertension, controlled. 4. Chronic kidney disease, mineral bone disorder. PLAN: Hemodialysis in a.m. Continue with the D5 0.9 as patient continues to have significant output from the NG tube. MMODL / IJN: [id number] /
[2018-01-04 17:09] LABS: Glucose,Whole Blood 61 mg/dL (75-99)
[2018-01-04 17:44] LABS: Glucose,Whole Blood 65 mg/dL (75-99)
[2018-01-04 17:44] LABS: Glucose,Whole Blood 78 mg/dL (75-99)
[2018-01-04 21:28] LABS: Glucose,Whole Blood 80 mg/dL (75-99)
[2018-01-05] MEDS: METOCLOPRAMIDE 5 MG/ML 2 ML VIAL IVP SCH ×5 (00:06→23:30)
[2018-01-05] MEDS: PANTOPRAZOLE 40 MG/10 ML VIAL IVP SCH ×3 (00:06→20:06)
[2018-01-05 00:57] LABS: Glucose,Whole Blood 85 mg/dL (75-99)
[2018-01-05] MEDS: MORPHINE SULFATE 2 MG/ML SYRINGE IV PRN (05:04)
[2018-01-05] MEDS: PIPERACILLIN-TAZOBACTAM 3.375 GM in DEXTROSE/WATER 1 50ML.BAG IVPB SCH ×2 (05:05→18:23)
[2018-01-05] MEDS: DEXTROSE 5%-0.9% NACL 1,000 ML IV SCH (05:08)
[2018-01-05 07:56] LABS: Glucose,Whole Blood 104 mg/dL (75-99)
[2018-01-05 10:32] LABS: Glucose,Whole Blood 116 mg/dL (75-99)
[2018-01-05 12:12] LABS: Glucose,Whole Blood 108 mg/dL (75-99)
[2018-01-05 12:25] LABS: Albumin 2.7 g/dL (3.5-5.0); Calcium 8.8 mg/dL (8.4-10.2); Potassium 4.3 mmol/L (3.5-5.1); Total Bilirubin 0.3 mg/dL (0.2-1.3); Total Protein 5.8 g/dL (6.3-8.2)
[2018-01-05 12:31] LABS: Anisocytosis Slight; Basophils # (A) 0.1 k/uL (0-0.2); Basophils % (A) 1 %; Eosinophils # (A) 0.2 k/uL (0-0.7); Eosinophils % (A) 2 %; HCT 31.5 % (34.0-46.0); HGB 9.1 gm/dL (11.4-16.0); Hypochromasia Marked; Lymphocytes # (A) 0.9 k/uL (1.0-4.8); Lymphocytes % (A) 9 %; MCH 25.9 pg (25.0-35.0); MCHC 28.8 g/dL (31.0-37.0); MCV 90.1 fL (80.0-100.0); Mean Platelet Volume 6.8; Monocytes # (A) 0.7 k/uL (0-1.0); Monocytes % (A) 7 %; Neutrophils # (A) 7.7 k/uL (1.3-7.7); Neutrophils % (A) 79 %; Platelet Count 346 k/uL (150-450); RBC 3.49 m/uL (3.80-5.40); WBC 9.7 k/uL (3.8-10.6)
--- NOTE | 2018-01-05 12:57 | P.PN ---
Subjective Progress Note Date: 01/05/18 42-year-old female sitting up in bed. This enters at bedside. Nasal gastric tube to suction. Patient states not passing gas but has been using ice chips was no nausea. No bowel movement. Patient stated that she did ambulate in the hallway yesterday. Has not been up this morning. White count 9.7 blood sugar 108 afebrile. Patient is postop day 5 from exploratory lap small bowel resection and repair of incisional hernia Postop December 31 exploratory laparotomy, lysis of adhesion, small bowel resection, repair of incisional hernia for frozen abdomen with small bowel obstruction with adhesions Objective - Vital Signs Vital signs: Vital Signs Temp 97.9 F 01/05/18 06:28 Pulse 104 H 01/05/18 10:35 Resp 20 01/05/18 10:35 BP 153/87 01/05/18 10:35 Pulse Ox 98 01/05/18 10:35 Intake & Output 01/04/18 01/05/18 01/05/18 18:59 06:59 18:59 Output Total 600 Balance -600 Weight 62 kg Output: Drainage 600 Abdomen 600 Other: Voiding Method Toilet # Voids 0 0 # Bowel Movements 0 - Exam Physical exam 42-year-old female sitting up in bed with visitor at bedside talkative appears in no acute distress Lungs adequate air movement bilaterally on room air no cough noted Heart S1-S2 audible regular denying chest pain Abdomen surgical dressing dry with a prevera wound system in place few hypoactive bowel tones surgical tenderness appropriate not distended no nausea no vomiting nasal gastric tube to suction brown secretions in the canister no stool taking ice chips freely Extremities no edema noted - Labs CBC & Chem 7: 01/05/18 11:36 01/03/18 07:25 Labs: Abnormal Lab Results - Last 24 Hours (Table) 01/04/18 01/04/18 01/04/18 Range/Units 12:54 17:06 17:23 RBC (3.80-5.40) m/uL Hgb (11.4-16.0) gm/dL Hct (34.0-46.0) % MCHC (31.0-37.0) g/dL RDW (11.5-15.5) % Lymphocytes # (1.0-4.8) k/uL POC Glucose (mg/dL) 148 H 61 L 65 L (75-99) mg/dL 01/05/18 01/05/18 01/05/18 Range/Units 07:28 10:30 11:32 RBC (3.80-5.40) m/uL Hgb (11.4-16.0) gm/dL Hct (34.0-46.0) % MCHC (31.0-37.0) g/dL RDW (11.5-15.5) % Lymphocytes # (1.0-4.8) k/uL POC Glucose (mg/dL) 104 H 116 H 108 H (75-99) mg/dL 01/05/18 Range/Units 11:36 RBC 3.49 L (3.80-5.40) m/uL Hgb 9.1 L (11.4-16.0) gm/dL Hct 31.5 L (34.0-46.0) % MCHC 28.8 L (31.0-37.0) g/dL RDW 18.0 H (11.5-15.5) % Lymphocytes # 0.9 L (1.0-4.8) k/uL POC Glucose (mg/dL) (75-99) mg/dL Microbiology - Last 24 Hours (Table) 12/31/17 10:56 Blood Culture - Preliminary Blood No Growth after 96 hours Assessment and Plan Assessment: Impression Present on admission intractable nausea vomiting with abdominal pain suspect due to complete high-grade bowel obstruction per CAT scan imaging End-stage renal disease on hemodialysis Friday schedule Status post December 30 permacath placed right groin Type 2 diabetes insulin requiring Anemia of chronic illness Hypertension with chronic kidney disease Present on admission leukocytosis suspect reactive History of a cholecystectomy 2 years prior History of a bowel resection due to incarcerated hernia 2 years prior Status post repair of incisional hernia, small bowel resection, lysis of adhesions, exploratory laparotomy done on december 31 Hypokalemia corrected Plan Encourage ambulation increase activity up in chair up in hallway at least 4 times today Patient to use incentive spirometer every 1 hour while awake Keep the nasogastric tube to suction IV fluid at 75 an hour per nephrology's recommendations hemodialysis schedule per nephrology recommendations Anti-emetics as ordered IV Zosyn as ordered DVT and GI prophylaxis Pain control Hold starting PPN today bowel function not resume tomorrow we'll start PPN Repeat labs in the morning The above impression and plan of care have been discussed and directed by signing physician. Nava Ayala nurse practitioner acting as scribe for signing physician.
[2018-01-05] MEDS ORDERED: ALTEPLASE 2 MG VIAL (CATHFLO) IV STA ×3 (14:59→15:35)
[2018-01-05] MEDS: HEPARIN SODIUM,PORCINE 5,000 UNIT/ML 1 ML VIAL SQ SCH ×2 (17:15→23:30)
[2018-01-05 17:18] LABS: Glucose,Whole Blood 98 mg/dL (75-99)
--- NOTE | 2018-01-05 18:32 | PN ---
PROGRESS NOTE DATE OF SERVICE: January 05, 2018. PRESENTING COMPLAINT: Abdominal surgery. INTERVAL HISTORY: Patient is status post abdominal surgery. NG tube remains in place. Has not passed any flatus. Was out of her bed once yesterday. No nausea, vomiting. REVIEW OF SYSTEMS: Done for constitutional, cardiovascular, GI, pulmonary, relevant findings as above. CURRENT MEDICATIONS: Reviewed that include IV Zosyn. PHYSICAL EXAMINATION: Temperature 97.9, pulse 95, respiration 18, blood pressure 119/66, pulse ox 100% on room air. GENERAL APPEARANCE: Lying in bed, tired appearing, awake. EYES: Pupils are equal. Conjunctivae pale. HEENT external appearance of nose and ears normal. Oral cavity dry. NG tube in place. NECK: JVD not raised. Mass not palpable. RESPIRATORY: Effort normal. LUNGS: Fair entry. CARDIOVASCULAR: First and second sounds normal. No edema. ABDOMEN: Soft, some tenderness. Bowel sounds sluggish. Wound VAC in place. PSYCHIATRY: Alert and oriented x3. Mood and affect normal. INVESTIGATIONS: White count 9.7, hemoglobin 9.1, potassium 4.3. ASSESSMENT: 1. Small-bowel obstruction, status post surgery. NG tube in place, remains. 2. End-stage kidney disease on hemodialysis. 3. Right femoral catheter for hemodialysis. 4. Anemia of chronic kidney disease. 5. Gastroesophageal reflux disease. 6. Hyperlipidemia. 7. Peripheral neuropathy from diabetes. 8. Diabetes mellitus type 2 uncontrolled from hypoglycemia, chronically on insulin. PLAN: Spoke to Nava from surgery, would like to start the patient on TPN. The patient's Levemir was discontinued. I did talk to the patient. Encouraged to be out of bed and ambulate. MMODL / IJN: [id number] /
[2018-01-05] MEDS: MORPHINE SULFATE 2 MG/ML SYRINGE IVP PRN ×2 (18:35→23:31)
--- NOTE | 2018-01-05 18:56 | PN ---
PROGRESS NOTE Patient is seen for followup for end-stage renal disease. She was seen this morning. Patient is scheduled for hemodialysis today. She remains with an NG tube in place. On examination, blood pressure is 119/76, heart rate 95 per minute. Patient is afebrile. EXAMINATION OF THE HEART: S1, S2. EXAMINATION OF LUNGS: Bilateral breath sounds are heard. ABDOMEN: Soft, non-tender. Examination of lower extremities shows no evidence of edema. NG tube is in place. Labs show sodium 146, potassium 4.3, BUN 41, serum creatinine 8.42, hemoglobin 9.1 g/dL. ASSESSMENT: 1. End-stage renal disease, on hemodialysis on a Friday, Friday, Friday schedule. Patient will be scheduled for hemodialysis today. 2. Bowel obstruction, status post bowel resection and lysis of adhesions. 3. Hypokalemia, status post replacement. 4. Malfunctioning PermCath, status post new catheter placement. However, I was informed that the catheter was not working well for treatment today as well. We will try Cathflo and Vascular Surgery will be re-consulted. PLAN: Try Cathflo, as PermCath is not functioning well again, and we will re-consult Vascular Surgery. MMODL / IJN: [id number] /
[2018-01-05 19:41] LABS: Hepatitis B Surface AB- Quant 30.3 mIU/mL
[2018-01-05 20:42] LABS: Glucose,Whole Blood 99 mg/dL (75-99)
[2018-01-05] MEDS: BENZOCAINE/MENTHOL LOZENG 1 EACH LOZENGE MUCOUS MEM PRN ×2 (20:52→23:30)
[2018-01-06 02:09] LABS: Glucose,Whole Blood 121 mg/dL (75-99)
[2018-01-06] MEDS: METOCLOPRAMIDE 5 MG/ML 2 ML VIAL IVP SCH ×4 (05:42→23:37)
[2018-01-06] MEDS: DEXTROSE 5%-0.9% NACL 1,000 ML IV SCH (05:42)
[2018-01-06] MEDS: PIPERACILLIN-TAZOBACTAM 3.375 GM in DEXTROSE/WATER 1 50ML.BAG IVPB SCH ×2 (05:43→17:29)
[2018-01-06] MEDS: MORPHINE SULFATE 2 MG/ML SYRINGE IVP PRN ×2 (05:43→16:14)
[2018-01-06 07:14] LABS: Glucose,Whole Blood 120 mg/dL (75-99)
[2018-01-06] MEDS: HEPARIN SODIUM,PORCINE 5,000 UNIT/ML 1 ML VIAL SQ SCH ×3 (07:49→23:37)
[2018-01-06] MEDS: PANTOPRAZOLE 40 MG/10 ML VIAL IVP SCH ×2 (07:50→20:35)
[2018-01-06 09:26] LABS: Glucose,Whole Blood 117 mg/dL (75-99)
--- NOTE | 2018-01-06 10:43 | P.PN ---
Subjective Progress Note Date: 01/06/18 42-year-old female seen this morning sitting up in bed. Patient stated that she did walk in the hallway 3 times yesterday. No stool nasal gastric tube to suction 100 out the last several hours. Patient states she thought she passed gas earlier in the morning. Abdomen slight tenderness noted slightly distended. Postop December 31 exploratory laparotomy, lysis of adhesion, small bowel resection, repair of incisional hernia for frozen abdomen with small bowel obstruction with adhesions Objective - Vital Signs Vital signs: Vital Signs Temp 98.7 F 01/06/18 06:19 Pulse 113 H 01/06/18 06:19 Resp 18 01/06/18 06:19 BP 131/77 01/06/18 06:19 Pulse Ox 97 01/06/18 06:19 Intake & Output 01/05/18 01/06/18 01/06/18 18:59 06:59 18:59 Weight 62 kg Other: # Voids 0 # Bowel Movements 0 - Exam Physical exam 42-year-old female sitting up in bed talkative appears in no acute distress Lungs adequate air movement bilaterally on room air no cough noted sats 96% Heart S1-S2 audible regular denying chest pain Abdomen surgical dressing dry with a prevera wound system in place few hypoactive bowel tones surgical tenderness appropriate not distended no nausea no vomiting nasal gastric tube to suction brown secretions in the canister no stool taking ice chips freely Extremities no edema noted - Labs CBC & Chem 7: 01/05/18 11:36 01/05/18 11:36 Labs: Abnormal Lab Results - Last 24 Hours (Table) 01/05/18 01/05/18 01/05/18 Range/Units 11:32 11:36 11:36 RBC 3.49 L (3.80-5.40) m/uL Hgb 9.1 L (11.4-16.0) gm/dL Hct 31.5 L (34.0-46.0) % MCHC 28.8 L (31.0-37.0) g/dL RDW 18.0 H (11.5-15.5) % Lymphocytes # 0.9 L (1.0-4.8) k/uL Sodium 146 H (137-145) mmol/L Chloride 109 H (98-107) mmol/L Carbon Dioxide 17 L (22-30) mmol/L BUN 41 H (7-17) mg/dL Creatinine 8.42 H* (0.52-1.04) mg/dL Glucose 106 H (74-99) mg/dL POC Glucose (mg/dL) 108 H (75-99) mg/dL AST 12 L (14-36) U/L Total Protein 5.8 L (6.3-8.2) g/dL Albumin 2.7 L (3.5-5.0) g/dL Hep Bs Antibody (Non-Reactive) 01/05/18 01/06/18 01/06/18 Range/Units 11:36 02:08 07:00 RBC (3.80-5.40) m/uL Hgb (11.4-16.0) gm/dL Hct (34.0-46.0) % MCHC (31.0-37.0) g/dL RDW (11.5-15.5) % Lymphocytes # (1.0-4.8) k/uL Sodium (137-145) mmol/L Chloride (98-107) mmol/L Carbon Dioxide (22-30) mmol/L BUN (7-17) mg/dL Creatinine (0.52-1.04) mg/dL Glucose (74-99) mg/dL POC Glucose (mg/dL) 121 H 120 H (75-99) mg/dL AST (14-36) U/L Total Protein (6.3-8.2) g/dL Albumin (3.5-5.0) g/dL Hep Bs Antibody Reactive H (Non-Reactive) 01/06/18 Range/Units 09:23 RBC (3.80-5.40) m/uL Hgb (11.4-16.0) gm/dL Hct (34.0-46.0) % MCHC (31.0-37.0) g/dL RDW (11.5-15.5) % Lymphocytes # (1.0-4.8) k/uL Sodium (137-145) mmol/L Chloride (98-107) mmol/L Carbon Dioxide (22-30) mmol/L BUN (7-17) mg/dL Creatinine (0.52-1.04) mg/dL Glucose (74-99) mg/dL POC Glucose (mg/dL) 117 H (75-99) mg/dL AST (14-36) U/L Total Protein (6.3-8.2) g/dL Albumin (3.5-5.0) g/dL Hep Bs Antibody (Non-Reactive) Microbiology - Last 24 Hours (Table) 12/31/17 10:56 Blood Culture - Preliminary Blood No Growth after 120 hours Assessment and Plan Assessment: Impression Present on admission intractable nausea vomiting with abdominal pain suspect due to complete high-grade bowel obstruction per CAT scan imaging End-stage renal disease on hemodialysis Friday schedule Status post December 30 permacath placed right groin Type 2 diabetes insulin requiring Anemia of chronic illness Hypertension with chronic kidney disease Present on admission leukocytosis suspect reactive History of a cholecystectomy 2 years prior History of a bowel resection due to incarcerated hernia 2 years prior Status post repair of incisional hernia, small bowel resection, lysis of adhesions, exploratory laparotomy done on december 31 Hypokalemia corrected Plan Start TPN consult dietitian Encourage ambulation increase activity Patient to use incentive spirometer every 1 hour while awake Keep the nasogastric tube to suction IV fluid at 75 an hour per nephrology's recommendations hemodialysis schedule per nephrology recommendations Anti-emetics as ordered IV Zosyn as ordered DVT and GI prophylaxis Pain control Repeat labs in the morning The above impression and plan of care have been discussed and directed by signing physician. Nava Ayala nurse practitioner acting as scribe for signing physician.
[2018-01-06 12:11] LABS: Glucose,Whole Blood 123 mg/dL (75-99)
[2018-01-06 13:18] LABS: Ionized Calcium 4.9 mg/dL (4.5-5.3)
[2018-01-06] MEDS: MVI, ADULT NO.4 WITH VIT K 10 ML, TRACE (CONC-1ML/DOSE) 1 ML in AMIN 2.4%/DEX 6.8%/LIPI... IV SCH ×3 (13:21)
[2018-01-06 13:34] LABS: Albumin 2.6 g/dL (3.5-5.0); Calcium 8.6 mg/dL (8.4-10.2); Magnesium 1.8 mg/dL (1.6-2.3); Phosphorus 6.2 mg/dL (2.5-4.5); Potassium 3.7 mmol/L (3.5-5.1)
[2018-01-06 17:46] LABS: Glucose,Whole Blood 142 mg/dL (75-99)
--- NOTE | 2018-01-06 18:09 | PN ---
PROGRESS NOTE DATE OF SERVICE: 01/06/2018 PRESENTING COMPLAINT: Abdominal surgery. INTERVAL HISTORY: Patient is status post abdominal surgery. NG tube remains in place. Does get up and ambulate. Feels gurgling in the stomach. Has not passed any flatus. I did talk to Nava Ayala about starting TPN yesterday. Patient's pain is controlled. REVIEW OF SYSTEMS: Done for constitutional, cardiovascular, GI, pulmonary; relevant findings as above. CURRENT MEDICATIONS: Reviewed. They include IV Zosyn. PHYSICAL EXAMINATION: Temperature 98.7, pulse 113, respiration 18, blood pressure 131/77, pulse ox 97% on room air. GENERAL APPEARANCE: Lying in bed, tired-appearing. EYES: Pupils equal. Conjunctivae pale. HEENT: External appearance of nose and ears normal. Oral cavity dry. NG tube in place. NECK: JVD not raised. Mass not palpable. RESPIRATORY: Effort normal. Lungs are clear. CARDIOVASCULAR: First and second sounds normal. No edema. ABDOMEN: Soft. Minimal tenderness. Bowel sounds are sluggish. Wound V.A.C. in place. PSYCHIATRY: Alert and oriented x3. Mood and affect slightly low-appearing. INVESTIGATIONS: Potassium 3.7, BUN 25, creatinine 6.0. ASSESSMENT: 1. Small-bowel obstruction, status post surgery. NG tube remains in place. 2. End-stage kidney disease, on hemodialysis. 3. Right femoral catheter for hemodialysis. 4. Anemia of chronic kidney disease. 5. Gastroesophageal reflux disease. 6. Hyperlipidemia. 7. Peripheral neuropathy from diabetes. 8. Diabetes mellitus, type 2, uncontrolled from glycemia, chronically on insulin. PLAN: Continue current medication and treatment plan. I had suggested that patient go on TPN. Will let Surgery finally determine that. Care was discussed with the patient. MMODL / IJN: [id number] /
[2018-01-06] MEDS: ONDANSETRON 4 MG/2 ML VIAL IVP PRN (20:42)
--- NOTE | 2018-01-06 22:39 | PN ---
PROGRESS NOTE Patient is seen for followup for end-stage renal disease. Patient is sitting up in bed. She denies any significant complaints. NG tube remains in place. On examination this morning, blood pressure was 131/77, heart rate 113 per minute. Patient is afebrile. EXAMINATION OF THE HEART: S1, S2. EXAMINATION OF LUNGS: Bilateral breath sounds are heard. ABDOMEN: Soft, non-tender. Examination of lower extremities shows no evidence of edema. Labs show sodium 144, potassium 3.7, serum creatinine 6.0, albumin 2.6. ASSESSMENT: 1. End-stage renal disease, on hemodialysis, currently with a right femoral PermCath which is status post Cathflo, as the catheter was not working well on Friday. 2. Bowel obstruction, status post bowel resection and lysis of adhesions with explorative laparotomy. Patient remains with NG tube in place. She has not passed flatus yet. 3. Chronic kidney disease mineral bone disorder. Patient is not eating. 4. Hypertension, currently controlled. PLAN: Hemodialysis in a.m. MMODL / IJN: [id number] /
[2018-01-07 00:04] LABS: Glucose,Whole Blood 172 mg/dL (75-99)
[2018-01-07] MEDS: MORPHINE SULFATE 2 MG/ML SYRINGE IVP PRN ×2 (00:40→06:23)
[2018-01-07] MEDS: METOCLOPRAMIDE 5 MG/ML 2 ML VIAL IVP SCH ×4 (05:24→23:57)
[2018-01-07] MEDS: PIPERACILLIN-TAZOBACTAM 3.375 GM in DEXTROSE/WATER 1 50ML.BAG IVPB SCH ×2 (05:24→17:46)
[2018-01-07 06:15] LABS: Glucose,Whole Blood 153 mg/dL (75-99)
[2018-01-07] MEDS: HEPARIN SODIUM,PORCINE 5,000 UNIT/ML 1 ML VIAL SQ SCH ×3 (08:12→23:56)
[2018-01-07] MEDS: cloNIDine 0.2 MG/24HR PATCH 1 PATCH PATCH TRANSDERM SCH (08:12)
[2018-01-07] MEDS: PANTOPRAZOLE 40 MG/10 ML VIAL IVP SCH (08:12)
[2018-01-07] MEDS ORDERED: MORPHINE SULFATE 2 MG/ML SYRINGE IVP PRN (10:40)
--- NOTE | 2018-01-07 11:04 | P.PN ---
Subjective Progress Note Date: 01/07/18 42-year-old female sitting up in bed talking on the phone appears in no acute distress hemodialysis in progress. Patient states she's anxious to start eating less abdominal cramping. Few hypoactive bowel tones states not passing gas no stool PPN infusing Nasal gastric tube to suction put out 150 mL spur 8 hours white brown secretions surgical dressing dry prevena wound system in place patient states she did ambulate in the hallway yesterday Postop December 31 exploratory laparotomy, lysis of adhesion, small bowel resection, repair of incisional hernia for frozen abdomen with small bowel obstruction with adhesions Objective - Vital Signs Vital signs: Vital Signs Temp 97.8 F 01/07/18 06:13 Pulse 93 01/07/18 06:13 Resp 16 01/07/18 06:13 BP 160/89 01/07/18 06:13 Pulse Ox 96 01/07/18 06:13 Intake & Output 01/06/18 01/07/18 01/07/18 18:59 06:59 18:59 Intake Total 450 Output Total 100 150 Balance 350 -150 Weight 62 kg 54.5 kg Intake: IV 450 Dextrose 5%-0.9% NaCl 1, 400 000 ml @ 50 mls/hr IV . Q20H [facility] Rx#:[id number] Piperacillin-Tazobactam 3 50 .375 gm In Dextrose/Water 1 50ml.bag @ 12.5 mls/hr IVPB Q12H [facility] Rx#: [id number] Output: Gastric Drainage 100 150 Urine 0 - Exam Physical exam 42-year-old female sitting up in bed talking on phone hemodialysis in progress Lungs adequate air movement on room air no cough noted sats 96% Heart S1-S2 audible regular denying chest pain Abdomen surgical dressing dry with a prevera wound system in place few hypoactive bowel tones surgical tenderness appropriate not distended no nausea no vomiting nasal gastric tube to suction brown secretions in the canister 150 over the last 8 hours no stool taking ice chips freely states less abdominal pain Extremities no edema noted - Labs CBC & Chem 7: 01/05/18 11:36 01/06/18 12:39 Labs: Abnormal Lab Results - Last 24 Hours (Table) 01/06/18 01/06/18 01/06/18 Range/Units 11:49 12:39 17:39 Chloride 108 H (98-107) mmol/L Carbon Dioxide 20 L (22-30) mmol/L BUN 25 H (7-17) mg/dL Creatinine 6.00 H* (0.52-1.04) mg/dL Glucose 126 H (74-99) mg/dL POC Glucose (mg/dL) 123 H 142 H (75-99) mg/dL Phosphorus 6.2 H (2.5-4.5) mg/dL Albumin 2.6 L (3.5-5.0) g/dL 01/07/18 01/07/18 Range/Units 00:01 06:12 Chloride (98-107) mmol/L Carbon Dioxide (22-30) mmol/L BUN (7-17) mg/dL Creatinine (0.52-1.04) mg/dL Glucose (74-99) mg/dL POC Glucose (mg/dL) 172 H 153 H (75-99) mg/dL Phosphorus (2.5-4.5) mg/dL Albumin (3.5-5.0) g/dL Microbiology - Last 24 Hours (Table) 12/31/17 10:56 Blood Culture - Final Blood No Growth after 144 hours Assessment and Plan Assessment: Impression Present on admission intractable nausea vomiting with abdominal pain suspect due to complete high-grade bowel obstruction per CAT scan imaging End-stage renal disease on hemodialysis Friday schedule Status post December 30 permacath placed right groin Type 2 diabetes insulin requiring Anemia of chronic illness Hypertension with chronic kidney disease Present on admission leukocytosis suspect reactive History of a cholecystectomy 2 years prior History of a bowel resection due to incarcerated hernia 2 years prior Status post repair of incisional hernia, small bowel resection, lysis of adhesions, exploratory laparotomy done on december 31 Hypokalemia corrected Plan Start TPN consult dietitian Encourage ambulation increase activity Patient to use incentive spirometer every 1 hour while awake Keep the nasogastric tube to suction clamp now for 4 hours reconnect if less than 100 possible DC'd nasogastric tube start clear liquid IV fluid at 75 an hour per nephrology's recommendations hemodialysis schedule per nephrology recommendations Anti-emetics as ordered IV Zosyn as ordered DVT and GI prophylaxis Pain control Repeat labs in the morning The above impression and plan of care have been discussed and directed by signing physician. Nava Ayala nurse practitioner acting as scribe for signing physician.
[2018-01-07 11:20] LABS: Anisocytosis Slight; Basophils # (A) 0.1 k/uL (0-0.2); Basophils % (A) 1 %; Eosinophils # (A) 0.4 k/uL (0-0.7); Eosinophils % (A) 4 %; HCT 29.1 % (34.0-46.0); HGB 8.6 gm/dL (11.4-16.0); Hypochromasia Marked; Lymphocytes # (A) 0.9 k/uL (1.0-4.8); Lymphocytes % (A) 9 %; MCHC 29.5 g/dL (31.0-37.0); Mean Platelet Volume 6.9; Monocytes # (A) 0.5 k/uL (0-1.0); Monocytes % (A) 6 %; Neutrophils % (A) 81 %; Platelet Count 415 k/uL (150-450); RBC 3.31 m/uL (3.80-5.40); RDW 17.8 % (11.5-15.5); WBC 9.9 k/uL (3.8-10.6)
[2018-01-07 11:37] LABS: Magnesium 1.8 mg/dL (1.6-2.3); Phosphorus 2.4 mg/dL (2.5-4.5)
[2018-01-07 12:07] LABS: Glucose,Whole Blood 124 mg/dL (75-99)
[2018-01-07] MEDS: MVI, ADULT NO.4 WITH VIT K 10 ML, TRACE (CONC-1ML/DOSE) 1 ML in AMIN 2.4%/DEX 6.8%/LIPI... IV SCH ×3 (15:39)
[2018-01-07 15:56] LABS: Calcium 8.7 mg/dL (8.4-10.2); Potassium 3.4 mmol/L (3.5-5.1)
[2018-01-07 17:07] LABS: Glucose,Whole Blood 169 mg/dL (75-99)
--- NOTE | 2018-01-07 17:22 | PN ---
PROGRESS NOTE Patient is seen for followup for end-stage renal disease. The patient continues to have very slow healing from the abdominal surgery. She has not passed flatus yet. She remains with an NG tube in. Her PermCath has not been functioning well and a cath flow was placed after her last treatment. This morning again the flows have been close to 200 or less. PHYSICAL EXAMINATION: Blood pressure this morning was 131/77, heart rate 113 per minute. Patient is afebrile. Examination of the heart S1, S2. Examination of the lungs bilateral breath sounds are heard. ABDOMEN: Soft. Examination of lower extremity shows no significant edema. LAB: Show sodium 141, potassium 3.4, chloride 105, BUN 19, serum creatinine 4.4, hemoglobin was 8.6 g/dL. These labs were done post hemodialysis. ASSESSMENT: 1. End-stage renal disease, on hemodialysis on a Friday, Friday, Friday schedule with poor functioning catheter. Patient will be dialyzed again tomorrow and vascular surgery has been reconsulted regarding malfunctioning catheter. 2. Bowel obstruction status post small bowel resection and lysis of adhesions via exploratory laparotomy. The patient remains with an NG tube in place. 3. Anemia of chronic disease maintained on Aranesp. 4. Hypertension currently controlled. 5. Hypokalemia noted however this is not accurate as this was drawn after dialysis. PLAN: Repeat hemodialysis in a.m. Consult vascular surgery regarding malfunctioning catheter. Repeat labs in a.m. MMMUNIRL / MIKN: [id number] /
[2018-01-07] MEDS: PANTOPRAZOLE 40 MG TABLET PO SCH (17:47)
[2018-01-07] MEDS: HYDROcodone/APAP 5-325MG 1 EACH TAB PO PRN ×2 (18:39→23:59)
[2018-01-07] MEDS: ONDANSETRON 4 MG/2 ML VIAL IVP PRN (19:52)
[2018-01-08 00:01] LABS: Glucose,Whole Blood 201 mg/dL (75-99)
[2018-01-08] MEDS: PIPERACILLIN-TAZOBACTAM 3.375 GM in DEXTROSE/WATER 1 50ML.BAG IVPB SCH ×2 (05:02→18:15)
[2018-01-08] MEDS: ONDANSETRON 4 MG/2 ML VIAL IVP PRN (05:02)
[2018-01-08 05:46] LABS: Glucose,Whole Blood 176 mg/dL (75-99)
[2018-01-08] MEDS: PANTOPRAZOLE 40 MG TABLET PO SCH ×2 (08:12→18:28)
[2018-01-08] MEDS: HEPARIN SODIUM,PORCINE 5,000 UNIT/ML 1 ML VIAL SQ SCH ×3 (08:12→23:19)
[2018-01-08] MEDS: HYDROcodone/APAP 5-325MG 1 EACH TAB PO PRN ×2 (08:12→23:19)
[2018-01-08 09:19] LABS: Magnesium 1.8 mg/dL (1.6-2.3); Phosphorus 1.7 mg/dL (2.5-4.5)
[2018-01-08 09:28] LABS: Anisocytosis Slight; Basophils # (A) 0.1 k/uL (0-0.2); Basophils % (A) 1 %; Eosinophils # (A) 0.3 k/uL (0-0.7); Eosinophils % (A) 3 %; HCT 28.4 % (34.0-46.0); HGB 8.6 gm/dL (11.4-16.0); Hypochromasia Marked; Lymphocytes # (A) 0.9 k/uL (1.0-4.8); Lymphocytes % (A) 11 %; MCHC 30.2 g/dL (31.0-37.0); MCV 85.9 fL (80.0-100.0); Mean Platelet Volume 7.3; Monocytes # (A) 0.6 k/uL (0-1.0); Monocytes % (A) 7 %; Neutrophils # (A) 6.7 k/uL (1.3-7.7); Neutrophils % (A) 78 %; Platelet Count 411 k/uL (150-450); RBC 3.31 m/uL (3.80-5.40); RDW 17.9 % (11.5-15.5); WBC 8.6 k/uL (3.8-10.6)
--- NOTE | 2018-01-08 09:41 | PN ---
PROGRESS NOTE DATE OF SERVICE: 01/07/2018 PRESENTING COMPLAINT: Abdominal surgery. INTERVAL HISTORY: Patient is seen by me yesterday on 01/07/2018. NG tube remains in place. Getting hemodialyzed today. Patient has not passed any flatus. Patient has been out of bed twice, not today, but yesterday. TPN was started. REVIEW OF SYSTEMS: Done for constitutional, cardiovascular, GI, pulmonary; relevant findings as above. CURRENT MEDICATIONS: Reviewed that include IV Zosyn. PHYSICAL EXAMINATION: Temperature 97.8, pulse 93, respiration 16, blood pressure 160/89, pulse ox 96% on room air. GENERAL APPEARANCE: Lying in bed, tired appearing. EYES: Pupils equal, conjunctivae are pale. HEENT: External appearance of nose and ears normal, oral cavity dry. NG tube in place. NECK: JVD unable to assess. Mass not palpable. RESPIRATORY: Effort normal. LUNGS; Clear. CARDIOVASCULAR: First and second sounds are normal, no edema. ABDOMEN: Soft. Some tenderness. Wound VAC in place. Bowel sounds remain sluggish. PSYCHIATRY: Alert and oriented x3. Mood and affect normal. INVESTIGATIONS: Potassium 3.4, BUN 19, creatinine 4.4. Accu-Cheks are noted. ASSESSMENT: 1. Small bowel obstruction, status post surgery. NG tube remains in place. Patient has not passed any flatus. 2. End-stage kidney disease on hemodialysis Friday, Friday and Friday. 3. Right femoral catheter for hemodialysis. 4. Anemia of chronic kidney disease. 5. Gastroesophageal reflux disease. 6. Hyperlipidemia. 7. Peripheral neuropathy from diabetes. 8. Diabetes mellitus type 2, uncontrolled with hyper- and hypoglycemia. 9. Difficulty with IV access. PLAN: Nurse had called me about the difficulty with IV access. I did tell him to get hold of Dr. Jeter and because of the patient's overall limited IV access, he needs to determine what is the best route to follow. To talk to the patient again being out of bed. MMODL / IJN: [id number] /
[2018-01-08] MEDS: METOCLOPRAMIDE 5 MG/ML 2 ML VIAL IVP SCH ×2 (11:02→11:53)
[2018-01-08 11:44] LABS: Glucose,Whole Blood 180 mg/dL (75-99)
[2018-01-08] MEDS ORDERED: hydrALAZINE HCL 20 MG/ML 1 ML VIAL IVP PRN (12:22)
--- NOTE | 2018-01-08 12:23 | P.PN ---
Subjective Patient is seen in follow-up for end-stage renal disease. She is maintained on hemodialysis on a Friday schedule via right groin catheter. She received cathflo yesterday and the catheter worked well this morning. Patient presented with vomiting and abdominal pain. She was noted to have small bowel obstruction and underwent exploratory laparotomy with lysis of adhesions and small bowel resection on December 31. She is currently resting in bed. NG tube has been removed. She is tolerating clear liquid diet. Vital signs are stable. General: The patient appeared well nourished and normally developed. NG tube in place. HEENT: Head exam is unremarkable. Neck is without jugular venous distension. LUNGS: Lungs are clear to auscultation and percussion. Breath sounds decreased. HEART: Rate and Rhythm are regular. First and second heart sounds normal. No murmurs, rubs or gallops. ABDOMEN: Bowel sounds decreased. Generalized tenderness. EXTREMITITES: No clubbing, cyanosis, or edema. Objective - Vital Signs Vital signs: Vital Signs Temp 98.6 F 01/08/18 06:36 Pulse 93 01/08/18 06:36 Resp 20 01/08/18 06:36 BP 172/99 01/08/18 06:36 Pulse Ox 98 01/08/18 06:36 Intake & Output 01/07/18 01/08/18 01/08/18 18:59 06:59 18:59 Intake Total 2411 Output Total 0 Balance 2411 0 Weight 54.5 kg 54.5 kg Intake: IV 480 Mvi, Adult No.4 with Vit 480 K 10 ml Trace (Conc-1Ml/ Dose) 1 ml In Ruiz 2.4%/ Dex 6.8%/Lipid/Lytes 1, 920 ml @ 80 mls/hr IV . Q24H ALO Rx#:[id number] Intake, IV Titration 1931 Amount Mvi, Adult No.4 with Vit 1931 K 10 ml Trace (Conc-1Ml/ Dose) 1 ml In Ruiz 2.4%/ Dex 6.8%/Lipid/Lytes 1, 920 ml @ 80 mls/hr IV . Q24H ALO Rx#:[id number] Output: Urine 0 Other: # Voids 0 0 # Bowel Movements 0 0 - Labs CBC & Chem 7: 01/08/18 08:39 01/07/18 15:00 Labs: Abnormal Lab Results - Last 24 Hours (Table) 01/07/18 01/07/18 01/07/18 Range/Units 15:00 16:58 23:59 RBC (3.80-5.40) m/uL Hgb (11.4-16.0) gm/dL Hct (34.0-46.0) % MCHC (31.0-37.0) g/dL RDW (11.5-15.5) % Lymphocytes # (1.0-4.8) k/uL Potassium 3.4 L (3.5-5.1) mmol/L BUN 19 H (7-17) mg/dL Creatinine 4.40 H (0.52-1.04) mg/dL Glucose 158 H (74-99) mg/dL POC Glucose (mg/dL) 169 H 201 H (75-99) mg/dL Phosphorus (2.5-4.5) mg/dL 01/08/18 01/08/18 01/08/18 Range/Units 05:44 08:39 08:39 RBC 3.31 L (3.80-5.40) m/uL Hgb 8.6 L (11.4-16.0) gm/dL Hct 28.4 L (34.0-46.0) % MCHC 30.2 L (31.0-37.0) g/dL RDW 17.9 H (11.5-15.5) % Lymphocytes # 0.9 L (1.0-4.8) k/uL Potassium (3.5-5.1) mmol/L BUN (7-17) mg/dL Creatinine (0.52-1.04) mg/dL Glucose (74-99) mg/dL POC Glucose (mg/dL) 176 H (75-99) mg/dL Phosphorus 1.7 L (2.5-4.5) mg/dL 01/08/18 Range/Units 11:41 RBC (3.80-5.40) m/uL Hgb (11.4-16.0) gm/dL Hct (34.0-46.0) % MCHC (31.0-37.0) g/dL RDW (11.5-15.5) % Lymphocytes # (1.0-4.8) k/uL Potassium (3.5-5.1) mmol/L BUN (7-17) mg/dL Creatinine (0.52-1.04) mg/dL Glucose (74-99) mg/dL POC Glucose (mg/dL) 180 H (75-99) mg/dL Phosphorus (2.5-4.5) mg/dL Assessment and Plan Plan: Assessment: 1. End-stage renal disease maintained on hemodialysis on a Friday schedule via right groin permacath, which was placed groin permacath . She had a upper extremity AV graft which occluded. 2. Small bowel obstruction with NG tube in place, status post exploratory laparotomy with lysis of adhesions and small bowel resection on 12/31/2017. 3. Hypertension with chronic kidney disease. 4. Insulin-dependent diabetes mellitus. 5. Chronic kidney disease mineral bone disease. Phosphorous at goal. 6. Anemia of chronic kidney disease. 7. Malfunctioning dialysis catheter status post Cathflo - worked fine this AM. Plan: Hemodialysis tomorrow. Maintain Aranesp. Resume lisinopril. Advance diet per surgery recommendations.
[2018-01-08] MEDS ORDERED: MORPHINE SULFATE 2 MG/ML SYRINGE IVP PRN (13:53)
[2018-01-08] MEDS ORDERED: METOCLOPRAMIDE 5 MG/ML 2 ML VIAL IM PRN (14:02)
[2018-01-08] MEDS ORDERED: METOCLOPRAMIDE 5 MG/ML 2 ML VIAL IVP PRN (14:04)
--- NOTE | 2018-01-08 14:06 | P.PN ---
Subjective Progress Note Date: 01/08/18 42-year-old female being seen this morning currently receiving hemodialysis awake alert sitting up in bed patient states that she is passing gas and had this morning. Tolerating a clear liquid diet with no nausea or vomiting. States less surgical discomfort this morning. . Patient states that she did get up and walk yesterday a couple times. Has not been out of bed this morning due to dialysis in progress Postop December 31 exploratory laparotomy, lysis of adhesion, small bowel resection, repair of incisional hernia for frozen abdomen with small bowel obstruction with adhesions Objective - Vital Signs Vital signs: Vital Signs Temp 98.6 F 01/08/18 06:36 Pulse 93 01/08/18 06:36 Resp 20 01/08/18 06:36 BP 172/99 01/08/18 06:36 Pulse Ox 98 01/08/18 06:36 Intake & Output 01/07/18 01/08/18 01/08/18 18:59 06:59 18:59 Intake Total 2411 Output Total 0 Balance 2411 0 Weight 54.5 kg 54.5 kg Intake: IV 480 Mvi, Adult No.4 with Vit 480 K 10 ml Trace (Conc-1Ml/ Dose) 1 ml In Ruiz 2.4%/ Dex 6.8%/Lipid/Lytes 1, 920 ml @ 80 mls/hr IV . Q24H ALO Rx#:[id number] Intake, IV Titration 1931 Amount Mvi, Adult No.4 with Vit 1931 K 10 ml Trace (Conc-1Ml/ Dose) 1 ml In Ruiz 2.4%/ Dex 6.8%/Lipid/Lytes 1, 920 ml @ 80 mls/hr IV . Q24H ALO Rx#:[id number] Output: Urine 0 Other: Voiding Method Toilet # Voids 0 0 # Bowel Movements 0 0 - Exam Physical exam 42-year-old female sitting up in bed states less abdominal pain hemodialysis in progress Lungs adequate air movement on room air no cough noted sats 96% Heart S1-S2 audible regular denying chest pain Abdomen surgical dressing dry with a prevera wound system in place bowel tones surgical tenderness appropriate not distended no nausea no vomiting tolerating clear liquid diet states less abdominal pain Extremities no edema noted - Labs CBC & Chem 7: 01/08/18 08:39 01/07/18 15:00 Labs: Abnormal Lab Results - Last 24 Hours (Table) 01/07/18 01/07/18 01/07/18 Range/Units 15:00 16:58 23:59 RBC (3.80-5.40) m/uL Hgb (11.4-16.0) gm/dL Hct (34.0-46.0) % MCHC (31.0-37.0) g/dL RDW (11.5-15.5) % Lymphocytes # (1.0-4.8) k/uL Potassium 3.4 L (3.5-5.1) mmol/L BUN 19 H (7-17) mg/dL Creatinine 4.40 H (0.52-1.04) mg/dL Glucose 158 H (74-99) mg/dL POC Glucose (mg/dL) 169 H 201 H (75-99) mg/dL Phosphorus (2.5-4.5) mg/dL 01/08/18 01/08/18 01/08/18 Range/Units 05:44 08:39 08:39 RBC 3.31 L (3.80-5.40) m/uL Hgb 8.6 L (11.4-16.0) gm/dL Hct 28.4 L (34.0-46.0) % MCHC 30.2 L (31.0-37.0) g/dL RDW 17.9 H (11.5-15.5) % Lymphocytes # 0.9 L (1.0-4.8) k/uL Potassium (3.5-5.1) mmol/L BUN (7-17) mg/dL Creatinine (0.52-1.04) mg/dL Glucose (74-99) mg/dL POC Glucose (mg/dL) 176 H (75-99) mg/dL Phosphorus 1.7 L (2.5-4.5) mg/dL 01/08/18 Range/Units 11:41 RBC (3.80-5.40) m/uL Hgb (11.4-16.0) gm/dL Hct (34.0-46.0) % MCHC (31.0-37.0) g/dL RDW (11.5-15.5) % Lymphocytes # (1.0-4.8) k/uL Potassium (3.5-5.1) mmol/L BUN (7-17) mg/dL Creatinine (0.52-1.04) mg/dL Glucose (74-99) mg/dL POC Glucose (mg/dL) 180 H (75-99) mg/dL Phosphorus (2.5-4.5) mg/dL Assessment and Plan Assessment: Impression Present on admission intractable nausea vomiting with abdominal pain suspect due to complete high-grade bowel obstruction per CAT scan imaging End-stage renal disease on hemodialysis Friday schedule Status post December 30 permacath placed right groin Type 2 diabetes insulin requiring Anemia of chronic illness Hypertension with chronic kidney disease Present on admission leukocytosis suspect reactive History of a cholecystectomy 2 years prior History of a bowel resection due to incarcerated hernia 2 years prior Status post repair of incisional hernia, small bowel resection, lysis of adhesions, exploratory laparotomy done on december 31 Hypokalemia corrected Malfunctioning dialysis catheter status post Cathflo resolved Chronic kidney disease mineral bone disease phosphorus at goal Anemia of chronic illness Insulin-dependent diabetes with hyper and hypo-glycemia Plan Start TPN consult dietitian Encourage ambulation increase activity Patient to use incentive spirometer every 1 hour while awake Advance diet to full liquid IV fluid at 75 an hour per nephrology's recommendations hemodialysis schedule per nephrology recommendations Anti-emetics as ordered IV Zosyn as ordered DVT and GI prophylaxis Pain control The above impression and plan of care have been discussed and directed by signing physician. Nava Ayala nurse practitioner acting as scribe for signing physician.
[2018-01-08] MEDS: LISINOPRIL 10 MG TAB PO SCH (14:41)
[2018-01-08] MEDS: DARBEPOETIN ALFA 40 MCG/0.4 ML SYRINGE SQ SCH (14:41)
[2018-01-08] MEDS: MVI, ADULT NO.4 WITH VIT K 10 ML, TRACE (CONC-1ML/DOSE) 1 ML in AMIN 2.4%/DEX 6.8%/LIPI... IV SCH ×3 (15:31)
[2018-01-08] MEDS: POTASSIUM CHLORIDE 10 MEQ in WATER FOR INJECTION 1 100ML.BAG IVPB SCH ×2 (15:59→18:24)
[2018-01-08 17:17] LABS: Glucose,Whole Blood 150 mg/dL (75-99)
--- NOTE | 2018-01-08 20:32 | PN ---
PROGRESS NOTE DATE OF SERVICE: 01/08/2018 PRESENTING COMPLAINT: Abdominal surgery. INTERVAL HISTORY: Patient is status post bowel obstruction surgery. NG tube was taken out. Started on clear liquids. Patient was due for hemodialysis today. Patient has been afebrile and has been out of bed. Patient's was here earlier today. The patient is getting TPN. REVIEW OF SYSTEMS: Done for constitutional, cardiovascular, GI, pulmonary; relevant findings as above. Patient did pass flatus, had a bowel movement. CURRENT MEDICATIONS: Current medications included IV Zosyn this morning. PHYSICAL EXAMINATION: Temperature 98, pulse 96, respiration 16, blood pressure 134/85, pulse ox 92% on room air. GENERAL APPEARANCE: Lying in bed, more perky. EYES: Pupils equal. Conjunctivae pale. HEENT: External appearance of nose and ears normal. Oral cavity dry. NG tube is out. NECK: JVD unable to assess. Mass not palpable. RESPIRATORY: Effort normal. Lungs are clear. CARDIOVASCULAR: First and second sounds normal. No edema. ABDOMEN: Soft. Less tenderness. Wound V.A.C. in place. Bowel sounds are present. PSYCHIATRY: Alert and oriented x3. Mood and affect normal. INVESTIGATIONS: White count 8.6, hemoglobin 8.6. ASSESSMENT: 1. Small-bowel obstruction, status post surgery. NG tube is now taken out. Patient has had a bowel movement and passed flatus. 2. End-stage kidney disease, on hemodialysis Friday, Friday and Friday. 3. Right femoral catheter for hemodialysis. 4. Anemia of chronic kidney disease. 5. Gastroesophageal reflux disease. 6. Hyperlipidemia. 7. Peripheral neuropathy from diabetes. 8. Diabetes mellitus, type 2, uncontrolled with hyper- and hypoglycemia. 9. Poor IV access. PLAN: Patient has been afebrile with normal white count. I did read Dr. Platt's operative note again, and actually I still talked to him on the phone. The patient's surgery was rather clean from infectious standpoint. Hence antibiotics will be discontinued. I also spoke to Dr. Jeter about the IV access and did tell him that more determination will have to be made about that. In the meantime, no new IV line will be placed because antibiotics have been discontinued. Patient encouraged to be out of bed. Total time spent today was about 35-40 minutes with over 20-25 minutes of discussion. MMODL / IJN: [id number] /
[2018-01-08 23:14] VITALS: RESP 18
[2018-01-09 04:52] LABS: Glucose,Whole Blood 115 mg/dL (75-99)
[2018-01-09 06:03] VITALS: BP 156/87; PULSE 91; TEMP 97.5
[2018-01-09] MEDS: LISINOPRIL 10 MG TAB PO SCH (08:03)
[2018-01-09] MEDS: HYDROcodone/APAP 5-325MG 1 EACH TAB PO PRN (08:03)
[2018-01-09] MEDS: PANTOPRAZOLE 40 MG TABLET PO SCH (08:03)
[2018-01-09] MEDS: HEPARIN SODIUM,PORCINE 5,000 UNIT/ML 1 ML VIAL SQ SCH (08:03)
[2018-01-09 08:57] LABS: Calcium 8.2 mg/dL (8.4-10.2); Magnesium 1.8 mg/dL (1.6-2.3); Phosphorus 3.9 mg/dL (2.5-4.5); Potassium 3.8 mmol/L (3.5-5.1)
[2018-01-09 10:33] VITALS: BMI 25.9
[2018-01-09 12:07] LABS: Glucose,Whole Blood 132 mg/dL (75-99)
--- NOTE | 2018-01-09 12:40 | P.DS ---
Providers Date of admission: 12/31/17 06:41 Expected date of discharge: 01/09/18 Attending physician: Noah Platt Consults: 12/31/17 06:42 Consult Physician Stat Consulting Provider: Gloria Reyes Consult Reason/Comments: Renal failure Do you want consulting provider notified?: Yes 12/31/17 09:40 Consult Physician Stat Consulting Provider: Matthew Roberson Consult Reason/Comments: Med management Do you want consulting provider notified?: Yes 12/31/17 13:54 Consult Physician Routine Consulting Provider: Tyrone Jeter Consult Reason/Comments: questionable hemoperitoneum Do you want consulting provider notified?: Yes Primary care physician: De Hopper Hospital Course: 42-year-old female presented on the day of admission to the emergency room to be evaluated for persistent epigastric pain with vomiting. Patient does have end-stage renal disease. Is on hemodialysis Friday schedule via right groin permacath. Patient had a CAT scan done of the abdomen pelvis in the emergency room which did show high-grade small bowel obstruction. Nasogastric tube was placed on admission. Abdominal pain did not improve. Underwent on December 31 exploratory laparotomy, lysis of adhesions, small bowel resection and repair of an incisional hernia small bowel obstruction patient was followed throughout the hospitalization by nephrology dialysis schedule was resumed on the january was felt to be hemodynamically stable and appropriate proceed with a discharge home. Patient was able to ambulate on the unit did pass gas and did have a bowel movement tolerating a full liquid diet. Impression Present on admission intractable nausea vomiting with abdominal pain suspect due to complete high-grade bowel obstruction per CAT scan imaging End-stage renal disease on hemodialysis Friday schedule Status post December 30 permacath placed right groin Type 2 diabetes insulin requiring Anemia of chronic illness Hypertension with chronic kidney disease Present on admission leukocytosis suspect reactive History of a cholecystectomy 2 years prior History of a bowel resection due to incarcerated hernia 2 years prior Status post repair of incisional hernia, small bowel resection, lysis of adhesions, exploratory laparotomy done on december 31 Hypokalemia corrected Malfunctioning dialysis catheter status post Cathflo resolved Chronic kidney disease mineral bone disease phosphorus at goal Anemia of chronic illness Insulin-dependent diabetes with hyper and hypo-glycemia The above impression and plan of care have been discussed and directed by signing physician. Nava Ayala nurse practitioner acting as scribe for signing physician. Patient Condition at Discharge: Good Plan - Discharge Summary Discharge Rx Participant: Yes New Discharge Prescriptions: New Lisinopril [Zestril] 10 mg PO DAILY #30 tab cloNIDine 0.2 MG/24HR PATCH [Catapres-TTS] 1 patch TRANSDERM Q7D #4 patch HYDROcodone/APAP 5-325MG [Wallace 5-325] 1 each PO Q4HR PRN #15 tab PRN Reason: MODERATE Pain Continue Atorvastatin Calcium [Lipitor] 20 mg PO HS Pantoprazole [Protonix] 40 mg PO QAM Metolazone 5 mg PO BID Potassium Chloride ER [K-Dur 10] 10 meq PO HS Ondansetron Odt [Zofran ODT] 4 mg PO Q12HR PRN PRN Reason: Nausea Metoclopramide HCl [Reglan] 5 mg PO BID Insulin Glargine [Lantus] 15 unit SQ HS Insulin Aspart [NovoLOG] 3 units SQ AC-TID Furosemide [Lasix] 80 mg PO BID Corie-Shelley 1 tab PO DAILY Potassium Citrate/Citric Acid [Potassium Cit-Citric Acid Soln] 5 ml PO DAILY Drospir/Eth Estra/Levomefol Ca [Tydemy Tablet] 1 tab PO DAILY Potassium Chloride 40meq/15ml 15 meq PO HS Discontinued Lisinopril [Prinivil] 5 mg PO BID cloNIDine HCL [Catapres] 0.1 mg PO BID Discharge Medication List Atorvastatin Calcium [Lipitor] 20 mg PO HS 01/08/15 [History] Pantoprazole [Protonix] 40 mg PO QAM 12/25/15 [History] Metolazone 5 mg PO BID 04/04/16 [History] Drospir/Eth Estra/Levomefol Ca [Tydemy Tablet] 1 tab PO DAILY 12/31/17 [History] Furosemide [Lasix] 80 mg PO BID 12/31/17 [History] Insulin Aspart [NovoLOG] 3 units SQ AC-TID 12/31/17 [History] Insulin Glargine [Lantus] 15 unit SQ HS 12/31/17 [History] Metoclopramide HCl [Reglan] 5 mg PO BID 12/31/17 [History] Ondansetron Odt [Zofran ODT] 4 mg PO Q12HR PRN 12/31/17 [History] Potassium Chloride 40meq/15ml 15 meq PO HS 12/31/17 [History] Potassium Chloride ER [K-Dur 10] 10 meq PO HS 12/31/17 [History] Potassium Citrate/Citric Acid [Potassium Cit-Citric Acid Soln] 5 ml PO DAILY [History] Corie-Shelley 1 tab PO DAILY 12/31/17 [History] HYDROcodone/APAP 5-325MG [Wallace 5-325] 1 each PO Q4HR PRN #15 tab 01/09/18 [Rx] Lisinopril [Zestril] 10 mg PO DAILY #30 tab 01/09/18 [Rx] cloNIDine 0.2 MG/24HR PATCH [Catapres-TTS] 1 patch TRANSDERM Q7D #4 patch [Rx] Follow up Appointment(s)/Referral(s): De Hopper MD [Primary Care Provider] - 02/05/18 9:00 am Tyrone Jeter MD [STAFF PHYSICIAN] - 01/15/18 12:30 pm Noah Platt MD [STAFF PHYSICIAN] - 01/15/18 3:00 pm (If you are running late at Dr Jeter's office, please call 's office and let them know. alumnae secretary said if you arrive at their office before 430pm Dr. Platt will still see you. ) Patient Instructions/Handouts: Chronic Kidney Disease (DC), Full Liquid Diet ( GEN) Activity/Diet/Wound Care/Special Instructions: keep on full liquid diet do not advance until seen in a follow-up visit with the surgeon No tub bath for six weeks. Shower daily. No lifting over 10 pounds for the next 6 weeks. do not remove the plastic dressings from surgical site May use ice packs to surgical site. No driving while taking narcotic for pain. Monitor blood sugars restart Lantus home dose Discharge Disposition: HOME SELF-CARE
--- NOTE | 2018-01-09 14:48 | PN ---
PROGRESS NOTE Patient is seen for followup for end-stage renal disease. She has had bowel movement and has been trying to eat. She is currently maintained on clear liquids. On examination, blood pressure was 156/87, heart rate 91 per minute. Patient is afebrile. EXAMINATION OF THE HEART: S1, S2. EXAMINATION OF LUNGS: Bilateral breath sounds are heard. ABDOMEN: Soft, non-tender. Examination of lower extremities shows no significant edema. UTILIZATION MANAGEMENT MANAGER exam is grossly intact. Labs show sodium 139, potassium 3.8. Hemoglobin was 8.6 on 01/08/2018. ASSESSMENT: 1. End-stage renal disease, on hemodialysis on a Friday, Friday, Friday schedule, currently with PermCath. 2. Bowel obstruction, status post bowel resection and lysis of adhesions, currently slowly improving. 3. Anemia of chronic disease, maintained on Aranesp. 4. Chronic kidney disease mineral bone disorder. PLAN: Patient is stable for discharge from nephrology standpoint. She will have her hemodialysis today prior to discharge. MMODL / IJN: [id number] /
--- NOTE | 2018-01-09 19:59 | PN ---
PROGRESS NOTE DATE OF SERVICE: 01/09/2018 PRESENTING COMPLAINT: Abdominal surgery. INTERVAL HISTORY: Patient is status post bowel obstruction surgery. Really doing well. Tolerated a diet. Had a bowel movement. No abdominal pain. Getting hemodialyzed today. Has been out of bed. REVIEW OF SYSTEMS: Done for constitutional, cardiovascular, GI, pulmonary; relevant findings as above. CURRENT MEDICATIONS: Reviewed. PHYSICAL EXAMINATION: Temperature 97.5, pulse 91, respiration 18, blood pressure 156/87, pulse ox 97% on room air. GENERAL APPEARANCE: Lying in bed, awake, comfortable. EYES: Pupils equal. Conjunctivae pale. HEENT: External appearance of nose and ears normal. Oral cavity normal. NECK: JVD not raised. Mass not palpable. RESPIRATORY: Effort normal. Lungs are clear. CARDIOVASCULAR: First and second sounds normal. No edema. ABDOMEN: Soft, non-tender. Patient has a wound system in place. It is not a wound V.A.C. INVESTIGATIONS: Potassium 3.8, BUN 16, creatinine 4.14. ASSESSMENT: 1. Status post bowel obstruction surgery, doing well. 2. End-stage kidney disease, on hemodialysis Friday, Friday and Friday. 3. Right femoral catheter for hemodialysis. 4. Anemia of chronic kidney disease. 5. Gastroesophageal reflux disease. 6. Hyperlipidemia. 7. Peripheral neuropathy from diabetes. 8. Diabetes mellitus, type 2, uncontrolled, with hyper- and hypoglycemia. PLAN: Care was discussed with the patient. Patient is getting discharged today as per Surgery. No need for antibiotics, as I discussed yesterday with Dr. Platt. Did tell the patient to follow up with Dr. Jeter and also follow up for transplant workup as soon as possible. Thank you, Dr. Platt. MMODL / IJN: [id number] /
== END 2018-01-09 15:15 | disposition home or self-care (01) | DRG 329 ==
LOC: EC 03:45 → 4MS4W 06:41
PROVIDERS: ADMIT Surgery; ATTEND Surgery
PROC: 0WQF0ZZ Repair Abdominal Wall, Open Approach (ICD-10-PCS; 2017-12-31)
PROC: 0D9670Z Drainage of Stomach with Drainage Device, Via Natural or Artificial Opening (ICD-10-PCS; 2017-12-31)
PROC: 0DB80ZZ Excision of Small Intestine, Open Approach (ICD-10-PCS; principal; 2017-12-31 07:30)
PROC: 0DNB0ZZ Release Ileum, Open Approach (ICD-10-PCS; 2017-12-31 07:30)
PROC: 5A1D70Z Performance of Urinary Filtration, Intermittent, Less than 6 Hours Per Day (ICD-10-PCS; 2018-01-01)
PROC: 5A1D70Z Performance of Urinary Filtration, Intermittent, Less than 6 Hours Per Day (ICD-10-PCS; 2018-01-02)
PROC: 5A1D70Z Performance of Urinary Filtration, Intermittent, Less than 6 Hours Per Day (ICD-10-PCS; 2018-01-05)
PROC: 3E0336Z Introduction of Nutritional Substance into Peripheral Vein, Percutaneous Approach (ICD-10-PCS; 2018-01-06)
PROC: 5A1D70Z Performance of Urinary Filtration, Intermittent, Less than 6 Hours Per Day (ICD-10-PCS; 2018-01-07)
PROC: 5A1D70Z Performance of Urinary Filtration, Intermittent, Less than 6 Hours Per Day (ICD-10-PCS; 2018-01-08)
PROC: 5A1D70Z Performance of Urinary Filtration, Intermittent, Less than 6 Hours Per Day (ICD-10-PCS; 2018-01-09)
DX: K56.52 Intestinal adhesions [bands] with complete obstruction (principal); N18.6 End stage renal disease; I13.2 Hypertensive heart and chronic kidney disease with heart failure and with stage 5 chronic kidney disease, or end stage renal disease; T82.9XXA Unspecified complication of cardiac and vascular prosthetic device, implant and graft, initial encounter; E11.22 Type 2 diabetes mellitus with diabetic chronic kidney disease; E11.42 Type 2 diabetes mellitus with diabetic polyneuropathy; E11.649 Type 2 diabetes mellitus with hypoglycemia without coma; I95.9 Hypotension, unspecified; I50.9 Heart failure, unspecified; E11.65 Type 2 diabetes mellitus with hyperglycemia; E86.1 Hypovolemia; K43.2 Incisional hernia without obstruction or gangrene; D63.1 Anemia in chronic kidney disease; E87.6 Hypokalemia; E83.89 Other disorders of mineral metabolism; K21.9 Gastro-esophageal reflux disease without esophagitis; Z99.2 Dependence on renal dialysis; E78.5 Hyperlipidemia, unspecified; K44.9 Diaphragmatic hernia without obstruction or gangrene; J02.9 Acute pharyngitis, unspecified; G43.909 Migraine, unspecified, not intractable, without status migrainosus; K58.9 Irritable bowel syndrome, unspecified; Z79.3 Long term (current) use of hormonal contraceptives; Z79.4 Long term (current) use of insulin; Z79.899 Other long term (current) drug therapy; Z86.19 Personal history of other infectious and parasitic diseases; Z90.49 Acquired absence of other specified parts of digestive tract; Z98.42 Cataract extraction status, left eye; Z98.41 Cataract extraction status, right eye; Z96.1 Presence of intraocular lens; Y84.1 Kidney dialysis as the cause of abnormal reaction of the patient, or of later complication, without mention of misadventure at the time of the procedure; Z82.61 Family history of arthritis; Z80.0 Family history of malignant neoplasm of digestive organs
CPT/HCPCS: 36415; 43753; 71045; 74176; 76700; 80048; 80053; 81001; 81025; 82040; 82150; 82330; 83605; 83690; 83735; 84100; 84478; 85025; 86140; 86706; 87040; 87340; 88302; 88307; 90935; 96361; 96374; 96375; 96376; 99285

== ENCOUNTER 2018-10-12 23:47 | Emergency (ER) | payer MEDICARE, BC ==
[2018-10-13] MEDS ORDERED: MORPHINE SULFATE 2 MG/ML SYRINGE IVP STA ×2 (01:54→03:41)
--- NOTE | 2018-10-13 02:01 | CT ---
EXAM: CT Abdomen and Pelvis Without Intravenous Contrast CLINICAL HISTORY: : Pain TECHNIQUE: Axial computed tomography images of the abdomen and pelvis without intravenous contrast. CTDI is 5.7 mGy and DLP is 313.1 mGy-cm. This CT exam was performed using one or more of the following dose reduction techniques: automated exposure control, adjustment of the mA and/or kV according to patient size, and/or use of iterative reconstruction technique. COMPARISON: 06/11/18 FINDINGS: Lung bases: Unremarkable. No mass. No consolidation. ABDOMEN: Liver: Unremarkable. Gallbladder and bile ducts: Surgically absence the gallbladder No ductal dilation. Pancreas: Unremarkable. No ductal dilation. Spleen: Unremarkable. No splenomegaly. Adrenals: Unremarkable. No mass. Kidneys and ureters: Unremarkable. No obstructing stones. Small 2 mm density calyceal stone midpole right kidney No hydronephrosis. Stomach and bowel: Unremarkable. No obstruction. No mucosal thickening. Appendix: No findings to suggest acute appendicitis. Bladder: Unremarkable. No stones. Reproductive: Right adnexal cyst measuring 4 cm bilateral adnexal cysts are noted with interval resolution of 4 cm left-sided ovarian cyst demonstrated on the prior study dated there are persistent smaller bilateral adnexal cysts clinical correlation is required. Trace free fluid noted in the pelvis adjacent to the right adnexa. Intraperitoneal space: Unremarkable. No free air. No significant fluid collection. Bones/joints: No acute fracture. No dislocation. Soft tissues: Unremarkable. Vasculature: Unremarkable. No abdominal aortic aneurysm. Lymph nodes: Unremarkable. No enlarged lymph nodes. IMPRESSION: 4 cm right adnexal cyst. Smaller Bilateral ovarian cysts. Trace free fluid noted adjacent right adnexa
[2018-10-13 02:36] LABS: Calcium 8.6 mg/dL (8.4-10.2); Magnesium 2.1 mg/dL (1.6-2.3); Potassium 4.3 mmol/L (3.5-5.1); Total Bilirubin 0.4 mg/dL (0.2-1.3); Total Protein 7.4 g/dL (6.3-8.2)
[2018-10-13 02:55] LABS: Basophils # (A) 0.1 k/uL (0-0.2); Basophils % (A) 1 %; Eosinophils # (A) 0.1 k/uL (0-0.7); Eosinophils % (A) 2 %; HCT 37.2 % (34.0-46.0); HGB 11.5 gm/dL (11.4-16.0); Hypochromasia Slight; Lymphocytes # (A) 0.8 k/uL (1.0-4.8); Lymphocytes % (A) 14 %; MCH 28.4 pg (25.0-35.0); MCHC 30.9 g/dL (31.0-37.0); MCV 92.1 fL (80.0-100.0); Mean Platelet Volume 7.7; Monocytes # (A) 0.4 k/uL (0-1.0); Monocytes % (A) 7 %; Neutrophils # (A) 4.4 k/uL (1.3-7.7); Neutrophils % (A) 74 %; Platelet Count 199 k/uL (150-450); RBC 4.04 m/uL (3.80-5.40); RDW 15.1 % (11.5-15.5); WBC 5.9 k/uL (3.8-10.6)
--- NOTE | 2018-10-13 04:00 | ED ---
Abdominal Pain HPI - General Source: patient Mode of arrival: ambulatory Limitations: no limitations <Nalini Roman - Last Filed: 10/13/18 04:28> <Sharona Land - Last Filed: 10/13/18 07:16> - General Chief Complaint: Abdominal Pain Stated Complaint: pelvic pain Time Seen by Provider: 10/13/18 00:09 - History of Present Illness Initial Comments: 43-year-old female past medical history of ovarian cysts, and ESRD on dialysis M/W/F presenting today for cc of right lower abdominal pain. Patient states that she about 1.5 hour prior to arrival patient was experiencing right lower abdominal pain. Pt states he has had mild nausea, as well as one episode of vomiting. pt states it does not feel ovarian in nature but she is not sure. Denies radiation of the pain, diarrhea, fever, chills, night sweats, headache. Pt denies heavy vaginal bleeding, vaginal dishcarge or vaginal odor. Patient states she has some looser stools but states that is usual for her. Remaining ROS (-), Patient denies any recent fever, chills, shortness of breath, chest pain, back pain, numbness or tingling, dysuria or hematuria, cons tipation,headaches or visual changes, or any other complaints. Upon arrival patient's vital signs within normal limits. Patient appears well. No signs of acute distress . (Nalini Roman) - Related Data Home Medications Medication Instructions Recorded Confirmed Calcium Carb-Mag Carb-Folic 1 tab PO AC-TID 06/11/18 06/11/18 [Magnebind 400 Rx] Previous Rx's Medication Instructions Recorded Cefuroxime Axetil [Ceftin] 500 mg PO DAILY 3 Days #5 tab 06/12/18 traMADol HCL [Ultram] 50 mg PO Q6HR PRN 3 Days #12 tab 06/12/18 Allergies Allergy/AdvReac Type Severity Reaction Status Date / Time No Known Allergies Allergy Verified 10/12/18 23:53 Review of Systems ROS Other: All systems not noted in ROS Statement are negative. <Nalini Roman - Last Filed: 10/13/18 04:28> ROS Other: All systems not noted in ROS Statement are negative. <Sharona Land - Last Filed: 10/13/18 07:16> ROS Statement: Those systems with pertinent positive or pertinent negative responses have been documented in the HPI. Past Medical History Past Medical History: Heart Failure, Diabetes Mellitus, Dialysis, GERD/Reflux, Hyperlipidemia, Hypertension, Renal Disease Additional Past Medical History / Comment(s): End stage RENAL FAILURE WITH CURRENT HEMODIALYSIS, MON,WED,FRI-pt states last hemo was yesterday, 12/30/17 because she was having problems with her dialysis cath, past peritoneal dialysis and had peritonitis, respiratory failure due to sepsis and was vented once, IDDM type II, diabetic neuropathy bilateral feet, anemia, hiatal hernia, [id number]."told in past i had ibs", migraines, History of Any Multi-Drug Resistant Organisms: None Reported Past Surgical History: Bowel Resection, Breast Surgery, Cholecystectomy, Hernia Repair Additional Past Surgical History / Comment(s): R breast biopsy X 2 both benign, breast reduction, akosua cataracts removed/ lens implants, HAS HAD 2 PERITONEAL DIALYSIS CATHETERS, AND 5 HEMODIALYSIS CATHETHERS, umbilical hernia repair with ischemic bowel within-small resection, colonoscopy/EGD. Past Anesthesia/Blood Transfusion Reactions: Motion Sickness, Postoperative Nausea & Vomiting (PONV) Additional Past Anesthesia/Blood Transfusion Reaction / Comment(s): no blood products-pt is a sikhism Past Psychological History: No Psychological Hx Reported Smoking Status: Never smoker Past Alcohol Use History: None Reported Past Drug Use History: None Reported - Past Family History Mother Family Medical History: Osteoarthritis (OA) Additional Family Medical History / Comment(s): Mother is living. Father Family Medical History: Cancer Additional Family Medical History / Comment(s): Father of LIVER cancer at age 61 yrs. <Vale Romanhan L - Last Filed: 10/13/18 04:28> General Exam Limitations: no limitations <Nalini Roman Shannon - Last Filed: 10/13/18 04:28> - General Exam Comments Initial Comments: General: The patient is awake and alert, in no distress, and does not appear acutely ill. Eye: +3 mm pupils are equal, round and reactive to light, extra-ocular movements are intact. No nystagmus. There is normal conjunctiva bilaterally. No signs of icterus. Ears, nose, mouth and throat: There are moist mucous membranes and no oral lesions. Neck: The neck is supple, there is no tenderness or JVD. Cardiovascular: There is a regular rate and rhythm. No murmur, rub or gallop is appreciated. Respiratory: Lungs are clear to auscultation, respirations are non-labored, breath sounds are equal. No wheezes, stridor, rales, or rhonchi. Gastrointestinal: No noted diaphoresis, jaundice, pallor, protecting postures or squirming. Symmetrical pigmentation of abdomen without signs of inflammation. Umbilicus mildline, inverted without swelling. No dilated veins. No noted abdominal distention. No visible masses. No peristalsis, aortic pulsations, or ventral hernia. Bowel sounds audible in all 4 quadrants, unremarkable. No friction rubs or venous hums. No epigastic, hepatic or abdominal bruits. RLQ pain to deep palpation, no rigidity, guarding, protecting postures. Liver edge, not palpable. Spleen edge, right and left kidney not palpable. Superior bladder margin non- tender. Special Testing: (+) McBurney Negative Hernan, cutaneous hyperesthesia. Negative Heel Jar test. No CVA tenderness. Digital rectal exam deferred. Negative montalvo turners or cullens sign Musculoskeletal: Normal ROM, no tenderness. Strength 5/5. Sensation intact. Pulses equal bilaterally 2+. Neurological: A&O x 3. CN II-XII intact, There are no obvious motor or sensory deficits. Coordination appears grossly intact. Speech is normal. Skin: Skin is warm and dry and no rashes or lesions are noted. Psychiatric: Cooperative, appropriate mood & affect, normal judgment. (Nalini Roman) Course <Nalini Roman - Last Filed: 10/13/18 04:28> Vital Signs 10/12/18 10/13/18 23:48 04:28 Temperature 98.1 F 98.9 F Pulse Rate 96 87 Respiratory 20 18 Rate Blood Pressure 114/74 124/81 O2 Sat by Pulse 100 100 Oximetry - Reevaluation(s) Reevaluation #1: Pt sleeping upon reevaluation, US was called over an 1.5 hour ago--still no response. 10/13/18 04:11 (Nalini Roman) Reevaluation #2: Transition of care-- patient case discussed with attending Dr. Land; she will resume care going forward- awaiting US, serial abdominal exam, pain management. 10/13/18 04:11 (Nalini Roman) Medical Decision Making - Lab Data Result diagrams: 10/13/18 02:10 10/13/18 02:10 <Nalini Roman - Last Filed: 10/13/18 04:28> - Lab Data Result diagrams: 10/13/18 02:10 10/13/18 02:10 <Sharona Land - Last Filed: 10/13/18 07:16> - Medical Decision Making Patient care was signed out to me by Nalini TAN - patient presented with right lower quadrant abdominal pain computed tomography scan was concerning for ovarian cysts ultrasound was subsequently ordered. Ultrasound revealed hemorrhagic ovarian cyst. These results were discussed with patient reports her pain is worsening. Unfortunately the patient is end-stage renal disease patient on dialysis and cannot take Motrin which would be adequate for pain management. I will give the patient additional dose of morphine here and a started pack of Tylenol 3. Return parameters were discussed questions pertaining care were answered patient was discharged home in stable condition (Sharona Land) - Lab Data Lab Results 10/13/18 10/13/18 10/13/18 Range/Units 01:15 02:10 02:10 WBC 5.9 (3.8-10.6) k/uL RBC 4.04 (3.80-5.40) m/uL Hgb 11.5 (11.4-16.0) gm/dL Hct 37.2 (34.0-46.0) % MCV 92.1 (80.0-100.0) fL MCH 28.4 (25.0-35.0) pg MCHC 30.9 L (31.0-37.0) g/dL RDW 15.1 (11.5-15.5) % Plt Count 199 (150-450) k/uL Neutrophils % 74 % Lymphocytes % 14 % Monocytes % 7 % Eosinophils % 2 % Basophils % 1 % Neutrophils # 4.4 (1.3-7.7) k/uL Lymphocytes # 0.8 L (1.0-4.8) k/uL Monocytes # 0.4 (0-1.0) k/uL Eosinophils # 0.1 (0-0.7) k/uL Basophils # 0.1 (0-0.2) k/uL Hypochromasia Slight Sodium 138 (137-145) mmol/L Potassium 4.3 (3.5-5.1) mmol/L Chloride 97 L (98-107) mmol/L Carbon Dioxide 30 (22-30) mmol/L Anion Gap 11 mmol/L BUN 20 H (7-17) mg/dL Creatinine 4.78 H (0.52-1.04) mg/dL Est GFR (CKD-EPI)AfAm 12 (>60 ml/min/1.73 sqM) Est GFR (CKD-EPI)NonAf 10 (>60 ml/min/1.73 sqM) Glucose 152 H (74-99) mg/dL Calcium 8.6 (8.4-10.2) mg/dL Magnesium 2.1 (1.6-2.3) mg/dL Total Bilirubin 0.4 (0.2-1.3) mg/dL AST 17 (14-36) U/L ALT 21 (9-52) U/L Alkaline Phosphatase 68 (38-126) U/L Total Protein 7.4 (6.3-8.2) g/dL Albumin 4.0 (3.5-5.0) g/dL Amylase 103 (30-110) U/L Lipase 115 (23-300) U/L Urine HCG, Qual Not Detected (Not Detectd) Disposition <Nalini Roman L - Last Filed: 10/13/18 04:28> Is patient prescribed a controlled substance at d/c from ED?: No <Sharona Land P - Last Filed: 10/13/18 07:16> Clinical Impression: Hemorrhagic cyst of right ovary Disposition: HOME SELF-CARE Condition: Stable Referrals: De Hopper MD [Primary Care Provider] - 1-2 days
[2018-10-13 04:30] VITALS: RESP 18
--- NOTE | 2018-10-13 05:20 | US ---
EXAM: US Pelvis, Transvaginal CLINICAL HISTORY: : Pain TECHNIQUE: Real-time transvaginal pelvic ultrasound (complete) with image documentation. Transvaginal imaging was used for better evaluation of the endometrium and adnexa. COMPARISON: No relevant prior studies available. FINDINGS: Uterus/cervix: Uterus 7.9 x 3.4 x 4.5 cm. Endometrium is 7.6 mm. Right ovary: 5.3 x 3.9 x 4.6. There is a 4 cm area corresponds to the CT findings appears represent a hemorrhagic cyst. Normal blood flow. Left ovary: 3.6 x 2.0 x 2.8 cm. 1.3 x 1.2 cm echogenic area noted which appears represent a collapsing follicular cyst. Multiple smaller cysts are noted possibility of polycystic ovarian syndrome is not excluded. Normal blood flow. Free fluid: No free fluid. Bladder: IMPRESSION: 4 cm hemorrhagic cyst right ovary. This corresponds to CT findings. Possibility of a polycystic ovarian syndrome is not excluded Normal symmetric blood flow left right ovary
[2018-10-13] MEDS ORDERED: ACET/COD 300 MG/30 MG STARTER PACK 6 TAB BTL PO STA (07:12)
[2018-10-13] MEDS ORDERED: MORPHINE SULFATE 4 MG/ML SYRINGE IVP STA (07:13)
[2018-10-13 07:18] VITALS: BP 134/79; PULSE 92; TEMP 99
== END 2018-10-13 07:22 | disposition home or self-care (01) ==
LOC: EC 23:47
DX: N83.201 Unspecified ovarian cyst, right side (principal); R11.2 Nausea with vomiting, unspecified; Z98.890 Other specified postprocedural states; Z90.49 Acquired absence of other specified parts of digestive tract; Z87.19 Personal history of other diseases of the digestive system
CPT/HCPCS: 36415; 80053; 82150; 83690; 83735; 85025; 81025; 93975; 76830; 74176; 99284; 96374; 96376 ×2; J2270 ×2

== ENCOUNTER → 2018-10-15 | Outpatient (CLI) | payer MEDICARE, BC ==
--- NOTE | 2018-10-16 08:51 | CT ---
EXAMINATION TYPE: CT abdomen pelvis wo con DATE OF EXAM: 10/15/2018 COMPARISON: 10/13/2018 HISTORY: Diarrhea and abdominal pain. CT DLP: 248.7 mGycm Automated exposure control for dose reduction was used. TECHNIQUE: Helical acquisition of images was performed from the lung bases through the pelvis. FINDINGS: LUNG BASES: Scattered areas of subsegmental atelectasis are seen at the lung bases LIVER/GB: Gallbladder surgically absent. Unenhanced morphology of the liver is unremarkable. PANCREAS: No significant abnormality is seen. SPLEEN: No significant abnormality is seen. ADRENALS: No significant abnormality is seen. KIDNEYS: There is an ill-defined left renal cyst with borders that are not clearly demarcated without contrast. Punctate 2 mm right midpole nonobstructing calculus is seen. No hydronephrosis of either k idney. FREE AIR: No free air is visualized ADENOPATHY: No greater than 1 cm short axis lymph node in the abdomen or pelvis. REPRODUCTIVE ORGANS: There is a complex right adnexal lesion measuring 6.8 x 4.8 x 4.8 cm. Follicular and/or cystic changes of left ovary are also seen. With regards to the right adnexa this has increas ed in size from the prior ultrasound of 04/03/2017. URINARY BLADDER: Diffuse urinary bladder wall thickening is again appreciated. This may relate to cy stitis and should be correlated with urinalysis however this is incompletely distended and seen on th e priors. OSSEOUS STRUCTURES: No significant abnormality is seen. BOWEL: Again there are numerous loops of small bowel that display small bowel wall thickening such a s on series 3 image 37 with bowel thickening up to 7 mm. OTHER: Ventral hernia is supraumbilical and wide necked with a neck measuring 5.5 cm. IMPRESSION: 1. COMPLEX RIGHT OVARIAN MASS THAT SHOULD BE FURTHER CHARACTERIZED WITH PELVIC ULTRASOUND. THIS HAS I NCREASED IN SIZE FROM THE PRIOR ULTRASOUND OF 04/03/2017. CONSIDERATIONS ARE FOR HEMORRHAGIC CYST, END OMETRIOMA, OR NEOPLASM. 2. REDEMONSTRATION OF DIFFUSE URINARY BLADDER WALL THICKENING THAT MAY RELATE TO INCOMPLETE DISTENTIO N OR CYSTITIS. CORRELATE WITH URINALYSIS. 3. SEEN ON THE PRIOR EXAM OF 312 19 MULTIPLE LOOPS OF SMALL BOWEL WALL THICKENING SUGGESTS ENTERIT IS OF INFLAMMATORY OR INFECTIOUS ETIOLOGY. VENTRAL ABDOMINAL HERNIA IS WIDE NECKED WITHOUT CT EVIDENC E OF OBSTRUCTION.
== END ==
LOC: RADCTMAIN 15:08
PROVIDERS: ATTEND Surgery
DX: N83.8 Other noninflammatory disorders of ovary, fallopian tube and broad ligament (principal); N30.90 Cystitis, unspecified without hematuria; K63.89 Other specified diseases of intestine; K43.9 Ventral hernia without obstruction or gangrene
CPT/HCPCS: 36415; 74176; 82565; 84520

== ENCOUNTER → 2018-11-13 | Outpatient (CLI) | payer MEDICARE, BC | END | disposition home or self-care (01) | LOC: LABWHC1 07:53 | PROVIDERS: ATTEND Obstetrics & Gynecology | DX: N83.9 Noninflammatory disorder of ovary, fallopian tube and broad ligament, unspecified (principal) | CPT/HCPCS: 36415 ==

== ENCOUNTER → 2018-12-15 | Outpatient (CLI) | payer MEDICARE, BC ==
--- NOTE | 2018-12-15 11:34 | US ---
EXAMINATION TYPE: US pelvis complete transvag DATE OF EXAM: 12/15/2018 COMPARISON: US dated 10/13/2018 CLINICAL HISTORY: N83.0 OVARIAN CYST. TECHNIQUE: Transvaginal (TV) and Transabdominal (TA) . Transabdominal sonographic images of the pel vis were acquired. Transvaginal sonographic images were medically necessary to better assess the fol lowing anatomy: ovarian pathology Date of LMP: 12/08/18 EXAM MEASUREMENTS: Uterus: 7.5 x 3.2 x 4.5 cm Endometrial Stripe: 0.7 cm Right Ovary: 2.9 x 2.1 x 2.5 cm Left Ovary: 5.0 x 4.0 x 3.7 cm 1. Uterus: Anteverted 2. Endometrium: 2 small anechoic areas that appear within the endometrium measuring 3mm 3. Right Ovary: hemorrhagic cyst versus endometrioma appears to have reduced in size measuring 2.1 x 1.5 x 1.3cm 4. Left Ovary: 4.4 x 3.8 x 3.4 cm hypoechoic mass. This is homogeneous low-level internal echoes and is new from the prior. 5. Bilateral Adnexa: wnl 6. Posterior cul-de-sac: wnl IMPRESSION: The previously seen right hemorrhagic cyst versus endometrioma has decreased in size previously measu ring up to 4.0 cm and currently measuring up to 2.1 cm. However a new left ovarian mass is seen measu ring up to 4.4 cm in comparison to the recent exam of 10/13/2018. Differential diagnosis is again endo metrioma versus hemorrhagic cyst. These could be differentiated on pelvic MRI.
== END | disposition home or self-care (01) ==
LOC: RADUSWWP 09:43
PROVIDERS: ATTEND Obstetrics & Gynecology
DX: N83.9 Noninflammatory disorder of ovary, fallopian tube and broad ligament, unspecified (principal)
CPT/HCPCS: 76830; 76856

== ENCOUNTER 2019-01-25 19:36 | Emergency (ER) | payer MEDICARE ==
[2019-01-25 20:32] LABS: Appearance,Urine Cloudy (Clear); Bilirubin,Urine Negative (Negative); Blood,Urine Small (Negative); Color,Urine Yellow; Glucose,Urine (UA) Negative (Negative); Ketones,Urine Negative (Negative); Leukocyte Esterase,Urine Large (Negative); Mucus,Urine Rare /hpf; Nitrite,Urine Negative (Negative); PH, Urine 8.5 (5.0-8.0); Protein,Urine 2+ (Negative); RBC,Urine 88 /hpf (0-5); Specific Gravity,Urine 1.008 (1.001-1.035); Squamous Epithelial Cell,Urine 6 /hpf (0-4); Urobilinogen,Urine <2.0 mg/dL (<2.0)
[2019-01-25] MEDS ORDERED: HYDROcodone/APAP 7.5-325MG 1 EACH TAB PO ONE (20:53)
[2019-01-25 21:03] LABS: Anisocytosis Slight; Basophils % (A) 1 %; Eosinophils # (A) 0.3 k/uL (0-0.7); Eosinophils % (A) 4 %; HCT 34.4 % (34.0-46.0); HGB 10.8 gm/dL (11.4-16.0); Hypochromasia Slight; Lymphocytes # (A) 1.6 k/uL (1.0-4.8); Lymphocytes % (A) 26 %; MCH 28.2 pg (25.0-35.0); MCHC 31.5 g/dL (31.0-37.0); MCV 89.5 fL (80.0-100.0); Mean Platelet Volume 8.3; Monocytes # (A) 0.5 k/uL (0-1.0); Monocytes % (A) 8 %; Neutrophils # (A) 3.8 k/uL (1.3-7.7); Neutrophils % (A) 61 %; Platelet Count 209 k/uL (150-450); RBC 3.84 m/uL (3.80-5.40); RDW 16.8 % (11.5-15.5); WBC 6.2 k/uL (3.8-10.6)
[2019-01-25 21:12] LABS: ALT <6 U/L (9-52); AST 28 U/L (14-36); African American GFR (CKD) 19 (>60 ml/min/1.73 sqM); Albumin 4.3 g/dL (3.5-5.0); Alkaline Phosphatase 49 U/L (38-126); Amylase 97 U/L (30-110); Anion Gap 10 mmol/L; Blood Urea Nitrogen 16 mg/dL (7-17); Calcium 9.3 mg/dL (8.4-10.2); Carbon Dioxide 31 mmol/L (22-30); Chloride 98 mmol/L (98-107); Glucose 103 mg/dL (74-99); Lipase 145 U/L (23-300); Sodium 139 mmol/L (137-145); Total Bilirubin 0.7 mg/dL (0.2-1.3); Total Protein 7.7 g/dL (6.3-8.2)
[2019-01-25 21:16] LABS: Potassium 4.2 mmol/L (3.5-5.1)
[2019-01-25] MEDS ORDERED: cefTRIAXone IN SWFI 1,000 MG/10 ML SYRINGE IVP STA (21:22)
--- NOTE | 2019-01-25 21:23 | ED ---
Abdominal Pain HPI - General Chief Complaint: Abdominal Pain Stated Complaint: Abd Pain Time Seen by Provider: 01/25/19 20:31 Source: patient, RN notes reviewed Mode of arrival: ambulatory Limitations: no limitations - History of Present Illness Initial Comments: 43-year-old female presents emergency department tingling of left lower quadrant abdominal pain. Patient states earlier today. Patient did go to dialysis today states that she had no complications there. Patient states that she believes is related to her ovarian cyst. Patient ultrasound a few weeks ago which showed a 4 cm left ovarian cyst. Denies any vaginal bleeding or vaginal discharge. Patient complains that she does have slight hesitancy of urination. Patient denies any back pain, fever, chills, chest pain, shortness breath, headache or dizziness. - Related Data Home Medications Medication Instructions Recorded Confirmed Calcium Carb-Mag Carb-Folic 2 tab PO AC-TID 06/11/18 01/25/19 [Magnebind 400 Rx] Clopidogrel [Plavix] 75 mg PO DAILY 01/25/19 01/25/19 rOPINIRole HCL [Requip] 0.25 mg PO HS 01/25/19 01/25/19 rOPINIRole HCL [Requip] 0.5 mg PO HS 01/25/19 01/25/19 Previous Rx's Medication Instructions Recorded Cephalexin [Keflex] 500 mg PO Q6HR #28 cap 01/25/19 Allergies Allergy/AdvReac Type Severity Reaction Status Date / Time No Known Allergies Allergy Verified 01/25/19 20:48 Review of Systems ROS Statement: Those systems with pertinent positive or pertinent negative responses have been documented in the HPI. ROS Other: All systems not noted in ROS Statement are negative. Past Medical History Past Medical History: Heart Failure, Diabetes Mellitus, Dialysis, GERD/Reflux, Hyperlipidemia, Hypertension, Renal Disease Additional Past Medical History / Comment(s): End stage RENAL FAILURE WITH CURRENT HEMODIALYSIS, MON,WED,FRI-pt states last hemo was yesterday, 12/30/17 because she was having problems with her dialysis cath, past peritoneal dialysis and had peritonitis, respiratory failure due to sepsis and was vented once, IDDM type II, diabetic neuropathy bilateral feet, anemia, hiatal hernia, [id number]."told in past i had ibs", migraines, History of Any Multi-Drug Resistant Organisms: None Reported Past Surgical History: Bowel Resection, Breast Surgery, Cholecystectomy, Hernia Repair Additional Past Surgical History / Comment(s): R breast biopsy X 2 both benign, breast reduction, akosua cataracts removed/ lens implants, HAS HAD 2 PERITONEAL DIALYSIS CATHETERS, AND 5 HEMODIALYSIS CATHETHERS, umbilical hernia repair with ischemic bowel within-small resection, colonoscopy/EGD. Past Anesthesia/Blood Transfusion Reactions: Motion Sickness, Postoperative Nausea & Vomiting (PONV) Additional Past Anesthesia/Blood Transfusion Reaction / Comment(s): no blood products-pt is a yarsani Past Psychological History: No Psychological Hx Reported Smoking Status: Never smoker Past Alcohol Use History: Occasional Past Drug Use History: None Reported - Past Family History Mother Family Medical History: Osteoarthritis (OA) Additional Family Medical History / Comment(s): Mother is living. Father Family Medical History: Cancer Additional Family Medical History / Comment(s): Father of LIVER cancer at age 61 yrs. General Exam Limitations: no limitations General appearance: alert, in no apparent distress Head exam: Present: atraumatic, normocephalic, normal inspection Respiratory exam: Present: normal lung sounds bilaterally. Absent: respiratory distress, wheezes, rales, rhonchi, stridor Cardiovascular Exam: Present: regular rate, normal rhythm, normal heart sounds. Absent: systolic murmur, diastolic murmur, rubs, gallop, clicks GI/Abdominal exam: Present: soft, tenderness (Mild left lower quadrant), normal bowel sounds. Absent: distended, guarding, rebound, rigid Back exam: Absent: CVA tenderness (R), CVA tenderness (L) Skin exam: Present: warm, dry, intact, normal color. Absent: rash Course Vital Signs 01/25/19 01/25/19 19:53 21:49 Temperature 98.2 F 98.1 F Pulse Rate 95 80 Respiratory 16 19 Rate Blood Pressure 160/86 163/93 O2 Sat by Pulse 100 99 Oximetry Medical Decision Making - Medical Decision Making 43-year-old female presented for left lower quadrant abdominal pain. Patient did have hematuria and no WBCs her urinalysis. CT was negative for stone. P atient to for urinary tract infection. She has no flank pain no concern for pyelonephritis. Laboratory does reveal elevated creatinine does she has chronic kidney disease on dialysis. Patient we discharged with Keflex and return parameters were discussed. Patient given Rocephin emergency department - Lab Data Result diagrams: 01/25/19 20:56 01/25/19 20:56 Lab Results 01/25/19 01/25/19 01/25/19 Range/Units 19:58 20:56 20:56 WBC 6.2 (3.8-10.6) k/uL RBC 3.84 (3.80-5.40) m/uL Hgb 10.8 L (11.4-16.0) gm/dL Hct 34.4 (34.0-46.0) % MCV 89.5 (80.0-100.0) fL MCH 28.2 (25.0-35.0) pg MCHC 31.5 (31.0-37.0) g/dL RDW 16.8 H (11.5-15.5) % Plt Count 209 (150-450) k/uL Neutrophils % 61 % Lymphocytes % 26 % Monocytes % 8 % Eosinophils % 4 % Basophils % 1 % Neutrophils # 3.8 (1.3-7.7) k/uL Lymphocytes # 1.6 (1.0-4.8) k/uL Monocytes # 0.5 (0-1.0) k/uL Eosinophils # 0.3 (0-0.7) k/uL Basophils # 0.0 (0-0.2) k/uL Hypochromasia Slight Anisocytosis Slight Sodium 139 (137-145) mmol/L Potassium 4.2 (3.5-5.1) mmol/L Chloride 98 (98-107) mmol/L Carbon Dioxide 31 H (22-30) mmol/L Anion Gap 10 mmol/L BUN 16 (7-17) mg/dL Creatinine 3.22 H (0.52-1.04) mg/dL Est GFR (CKD-EPI)AfAm 19 (>60 ml/min/1.73 sqM) Est GFR (CKD-EPI)NonAf 17 (>60 ml/min/1.73 sqM) Glucose 103 H (74-99) mg/dL Calcium 9.3 (8.4-10.2) mg/dL Total Bilirubin 0.7 (0.2-1.3) mg/dL AST 28 (14-36) U/L ALT <6 L (9-52) U/L Alkaline Phosphatase 49 (38-126) U/L Total Protein 7.7 (6.3-8.2) g/dL Albumin 4.3 (3.5-5.0) g/dL Amylase 97 (30-110) U/L Lipase 145 (23-300) U/L Urine Color Yellow Urine Appearance Cloudy H (Clear) Urine pH 8.5 H (5.0-8.0) Ur Specific [place] 1.008 (1.001-1.035) Urine Protein 2+ H (Negative) Urine Glucose (UA) Negative (Negative) Urine Ketones Negative (Negative) Urine Blood Small H (Negative) Urine Nitrite Negative (Negative) Urine Bilirubin Negative (Negative) Urine Urobilinogen <2.0 (<2.0) mg/dL Ur Leukocyte Esterase Large H (Negative) Urine RBC 88 H (0-5) /hpf Urine WBC 97 H (0-5) /hpf Ur Squamous Epith Cells 6 H (0-4) /hpf Urine Mucus Rare H (None) /hpf Disposition Clinical Impression: UTI (urinary tract infection), Chronic renal failure, Ovarian cyst Disposition: HOME SELF-CARE Condition: Stable Instructions (If sedation given, give patient instructions): Urinary Tract Infection in Women (ED) Additional Instructions: Please return to the Emergency Department if symptoms worsen or any other concerns. Prescriptions: Cephalexin [Keflex] 500 mg PO Q6HR #28 cap Is patient prescribed a controlled substance at d/c from ED?: No Referrals: De Hopper MD [Primary Care Provider] - 1-2 days Time of Disposition: 22:38
--- NOTE | 2019-01-25 22:34 | CT ---
EXAMINATION TYPE: CT abdomen pelvis wo con DATE OF EXAM: 01/25/2019 COMPARISON: 10/15/2018 HISTORY: LLQ pain, hematuria. Hx renal failure CT DLP: 358.1 mGycm Automated exposure control for dose reduction was used. TECHNIQUE: Helical acquisition of images was performed from the lung bases through the pelvis. FINDINGS: LUNG BASES: No acute process. Mild/moderate cardiomegaly. LIVER/GB: No significant abnormality is appreciated. PANCREAS: No significant abnormality is seen. SPLEEN: No significant abnormality is seen. ADRENALS: No significant abnormality is seen. KIDNEYS: No significant abnormality is seen. No hydronephrosis or hydroureter. A few tiny nonobstruct ing renal calcifications are noted, but most of the renal calcifications are arterial. FREE AIR: No free air is visualized. No ascites. RETROPERITONEAL ADENOPATHY: None visualized REPRODUCTIVE ORGANS: Bilateral adnexal masses are noted, 6 cm on the left and 4 cm on the right. Thes e are likely physiologic but can be characterized using pelvic Doppler ultrasound in 2 weeks or 6 wee ks. URINARY BLADDER: No significant abnormality is seen. PELVIC ADENOPATHY: None visualized. OSSEOUS STRUCTURES: No significant abnormality is seen. BOWEL: No significant abnormality is seen. Prominent volume of stool seen throughout the colon. IMPRESSION: NO DEFINITE ACUTE PROCESS.
[2019-01-25] MEDS ORDERED: ACET/COD 300 MG/30 MG STARTER PACK 6 TAB BTL PO STA (22:38)
[2019-01-25 22:59] VITALS: BP 137/76; PULSE 99; RESP 18; TEMP 98.7
== END 2019-01-25 22:59 | disposition home or self-care (01) ==
LOC: EC 19:36
DX: N83.202 Unspecified ovarian cyst, left side (principal); N39.0 Urinary tract infection, site not specified; E11.22 Type 2 diabetes mellitus with diabetic chronic kidney disease; I13.2 Hypertensive heart and chronic kidney disease with heart failure and with stage 5 chronic kidney disease, or end stage renal disease; I50.9 Heart failure, unspecified; N18.6 End stage renal disease; Z99.2 Dependence on renal dialysis; E11.40 Type 2 diabetes mellitus with diabetic neuropathy, unspecified; D64.9 Anemia, unspecified; Z79.01 Long term (current) use of anticoagulants; Z79.899 Other long term (current) drug therapy
CPT/HCPCS: 36415; 80053; 82150; 83690; 85025; 81001; 87086; 74176; 99284; 96374; J0696

== ENCOUNTER → 2019-03-03 | Outpatient (CLI) | payer MEDICARE, BC ==
--- NOTE | 2019-03-03 08:52 | US ---
EXAMINATION TYPE: US pelvis complete transvag DATE OF EXAM: 03/03/2019 COMPARISON: pelvic ultrasounds of 12/15/2018 and 10/13/2018 CLINICAL HISTORY: N83.0 follow up ovarian cyst bilateral. Hx of ovarian cyst follow up to previous. TECHNIQUE: Transvaginal (TV) and Transabdominal (TA) . Transabdominal sonographic images of the pel vis were acquired. Transvaginal sonographic images were medically necessary to better assess the fol lowing anatomy: Date of LMP: 02/25/2019 EXAM MEASUREMENTS: Uterus: 6.4 x 4.5 x 4.1 cm Endometrial Stripe: 0.6 cm Right Ovary: 4.9 x 2.9 x 4.1 cm Left Ovary: 5.8 x 3.8 x 4.5 cm 1. Uterus: Anteverted Nabothian cysts seen. 2. Endometrium: wnl 3. Right Ovary: Complex cystic area with septation 3.5 x 2.1 x 1.8cm. This previously measured 2.1 x 1.5 x 1.3 cm on the exam of 12/15/2018 and 4.0 cm on the prior of 10/13/2018. Cystic area 2.2 x 1.2 x 1.8cm. 4. Left Ovary: Complex area 3.2 x 2.3 x 3.0 cm . This previously measured 4.4 x 3.8 x 3.4 cm on the prior of 12/15/2018. 5. Bilateral Adnexa: wnl 6. Posterior cul-de-sac: wnl IMPRESSION: Fluctuating size of the complex bilateral ovarian cysts in comparison to the prior pelvic ultrasounds of 12/15/2018 and 10/13/2018. These again likely relate to hemorrhagic cysts given their s onographic appearance and fluctuation in size. Endometriomas or other complex cystic ovarian lesions remain less likely considerations.
== END ==
LOC: RADUSWWP 07:36
PROVIDERS: ATTEND Obstetrics & Gynecology
DX: N83.292 Other ovarian cyst, left side (principal); N83.291 Other ovarian cyst, right side
CPT/HCPCS: 36415; 76830; 76856; 86304

== ENCOUNTER → 2019-03-23 | Outpatient (CLI) | payer MEDICARE ==
[2019-03-23 14:45] LABS: Anisocytosis Slight; Basophils # (A) 0.1 k/uL (0-0.2); Basophils % (A) 1 %; Eosinophils # (A) 0.2 k/uL (0-0.7); Eosinophils % (A) 3 %; HCT 31.2 % (34.0-46.0); HGB 9.7 gm/dL (11.4-16.0); Hypochromasia Moderate; Lymphocytes # (A) 1.3 k/uL (1.0-4.8); Lymphocytes % (A) 26 %; MCH 28.2 pg (25.0-35.0); MCHC 31.2 g/dL (31.0-37.0); MCV 90.2 fL (80.0-100.0); Mean Platelet Volume 7.9; Monocytes # (A) 0.4 k/uL (0-1.0); Monocytes % (A) 8 %; Neutrophils % (A) 60 %; Platelet Count 261 k/uL (150-450); RBC 3.46 m/uL (3.80-5.40); RDW 16.7 % (11.5-15.5); WBC 5.1 k/uL (3.8-10.6)
[2019-03-23 14:51] LABS: Potassium 5.3 mmol/L (3.5-5.1)
== END | disposition home or self-care (01) ==
LOC: LABPAT 14:11
PROVIDERS: ATTEND Surgery
DX: Z01.812 Encounter for preprocedural laboratory examination (principal); K43.0 Incisional hernia with obstruction, without gangrene
CPT/HCPCS: 36415; 82565; 84132; 84520; 85025

== ENCOUNTER 2019-03-24 06:49 | Inpatient (IN) | payer MEDICARE ==
[~2019-03-24 06:49] MED LIST changes: +DEXAMETHASONE SOD PHOSPHATE 10 MG/ML 1 ML VIAL IV ONE; -HYDROmorphone 1 MG/ML 1 ML SYRINGE IVP PRN; -MIDAZOLAM 2 MG/2 ML VIAL IV PRN; +ONDANSETRON 4 MG/2 ML VIAL IVP ONE; -ONDANSETRON 4 MG/2 ML VIAL IVP PRN
--- NOTE | 2019-03-24 07:30 | P.HPOB ---
History of Present Illness H&P Date: 03/24/19 Chief Complaint: Ovarian cysts Gage is a 44-year-old female with bilateral ovarian cysts. These were noted as early as October this year on ultrasound and we have been following him closely. Due to the abnormal finding but with normal CA-125 levels we did refer her to [facility] for evaluation. At that time it was determined that the cyst would not require surgery particularly in the face of having as significant of abdominal disease from her prior surgery and peritoneal surgery. She is high risk for injuries to bowel or bladder for same. It is also unclear if the cysts are truly ovarian or stable potentially our peritoneal cyst due to prior peritoneal dialysis. Based on prior ultrasounds they appear to be hemorrhagic cysts. In October she was having significant pain from them but now she is essentially asymptomatic. Since she is undergoing a an exploratory laparotomy for repair of a ventral hernia will combine the surgery and at least evaluate the cysts. She is scheduled for cystotomy versus cystectomy versus oophorectomy depending on what the ovaries actually look like. It is difficult to say what exactly will need to be done until where actually in doing the procedure. Should there be significant disease she will undergo bilateral oophorectomy and she is aware that this would cause her to be menopausal and would potentially decrease her life expectancy. However, due to her past history and surgical risk if that's what needs to be done it would be safer to do now then at a later date. Risks/benefits/alternatives were reviewed with the patient in detail all questions were answered for her prior to proceeding to the operative room. Past Medical History Past Medical History: Heart Failure, Diabetes Mellitus, Dialysis, GERD/Reflux, Hyperlipidemia, Hypertension, Renal Disease Additional Past Medical History / Comment(s): End stage RENAL FAILURE WITH CURRENT HEMODIALYSIS, FRI,FRI,FRI-pt states last hemo was yesterday, 12/30/17 because she was having problems with her dialysis cath, past peritoneal dialysis and had peritonitis, respiratory failure due to sepsis and was vented once, IDDM type II, diabetic neuropathy bilateral feet, anemia, hiatal hernia, [id number]."told in past i had ibs", migraines, History of Any Multi-Drug Resistant Organisms: None Reported Past Surgical History: Bowel Resection, Breast Surgery, Cholecystectomy, Hernia Repair Additional Past Surgical History / Comment(s): R breast biopsy X 2 both benign, breast reduction, akosua cataracts removed/ lens implants, HAS HAD 2 PERITONEAL DIALYSIS CATHETERS, AND 5 HEMODIALYSIS CATHETHERS, umbilical hernia repair with ischemic bowel within-small resection, colonoscopy/EGD. Past Anesthesia/Blood Transfusion Reactions: Motion Sickness, Postoperative Nausea & Vomiting (PONV) Additional Past Anesthesia/Blood Transfusion Reaction / Comment(s): no blood products-pt is a yazdanism Additional Psychological History / Comment(s): Pt resides with her spouse. 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 Pt uses no assistive device. She drives. Home is one level with one entrance step. - Past Family History Mother Family Medical History: Osteoarthritis (OA) Additional Family Medical History / Comment(s): . Father Family Medical History: Cancer Additional Family Medical History / Comment(s): Father of LIVER cancer at age 61 yrs. Medications and Allergies Home Medications Medication Instructions Recorded Confirmed Type Clopidogrel [Plavix] 75 mg PO DAILY 01/25/19 03/24/19 History Lisinopril [Zestril] 10 mg PO BID 03/17/19 03/24/19 History Magnebind 300 2 tab PO TID-W/MEALS 03/17/19 03/24/19 History Multivitamins, Thera [Multivitamin 1 tab PO DAILY 03/17/19 03/24/19 History (formulary)] rOPINIRole HCL [Requip] 1 mg PO HS 03/17/19 03/24/19 History Allergies Allergy/AdvReac Type Severity Reaction Status Date / Time No Known Allergies Allergy Verified 03/24/19 07:02 Exam Osteopathic Statement: *. No significant issues noted on an osteopathic structural exam other than those noted in the History and Physical/Consult. Vital Signs Temp Pulse Resp BP Pulse Ox 03/24/19 07:09 97.3 F L 88 16 163/86 99 - OBG Physical Exam Breast: both: normal (no masses) Abdomen: bowel sounds normal, no diffuse tenderness, no bruit present, no guarding noted, no hepatomegaly, no splenomegaly, no mass Vulva: both: normal Vagina: normal moisture, no discharge Cervix: no lesion, no discharge Uterus: normal size, normal contour Adnexa: both: normal Anus/Rectum: normal perianal skin, no rectal mass, no hemorrhoids, heme negative
[2019-03-24 07:38] LABS: Glucose,Whole Blood 94 mg/dL (75-99)
[2019-03-24] MEDS ORDERED: MIDAZOLAM 2 MG/2 ML VIAL ONE (08:12)
[2019-03-24] MEDS ORDERED: fentaNYL (PF) 50 MCG/ML 2 ML AMP ONE (08:12)
[2019-03-24] MEDS ORDERED: SUCCINYLCHOLINE CHLORIDE 100 MG/5 ML SYR IV ONE (08:12)
[2019-03-24] MEDS ORDERED: PROPOFOL 10 MG/ML 20 ML VIAL IV ONE (08:12)
[2019-03-24] MEDS ORDERED: ROCURONIUM BROMIDE 10 MG/ML 10 ML VIAL IV ONE (08:12)
[2019-03-24] MEDS ORDERED: LIDOCAINE 1% INJ 10MG/ML (20 ML MDV) ONE (08:12)
--- NOTE | 2019-03-24 08:18 | P.GSHP ---
History of Present Illness H&P Date: 03/24/19 Chief Complaint: Incisional hernia This a 44-year-old female who developed an incisional hernia. Patient has had multiple previous laparotomies. Patient has developed a large midline incisional hernia in the superior portion of her midline scar. She was up today for repair. Patient will also have her ovaries examined by Dr. Abad at the time of surgery. Past Medical History Past Medical History: Heart Failure, Diabetes Mellitus, Dialysis, GERD/Reflux, Hyperlipidemia, Hypertension, Renal Disease Additional Past Medical History / Comment(s): End stage RENAL FAILURE WITH CURRENT HEMODIALYSIS, FRI,FRI,FRI-pt states last hemo was yesterday, 12/30/17 because she was having problems with her dialysis cath, past peritoneal dialysis and had peritonitis, respiratory failure due to sepsis and was vented once, IDDM type II, diabetic neuropathy bilateral feet, anemia, hiatal hernia, [id number]."told in past i had ibs", migraines, History of Any Multi-Drug Resistant Organisms: None Reported Past Surgical History: Bowel Resection, Breast Surgery, Cholecystectomy, Hernia Repair Additional Past Surgical History / Comment(s): R breast biopsy X 2 both benign, breast reduction, akosua cataracts removed/ lens implants, HAS HAD 2 PERITONEAL DIALYSIS CATHETERS, AND 5 HEMODIALYSIS CATHETHERS, umbilical hernia repair with ischemic bowel within-small resection, colonoscopy/EGD. Past Anesthesia/Blood Transfusion Reactions: Motion Sickness, Postoperative Nausea & Vomiting (PONV) Additional Past Anesthesia/Blood Transfusion Reaction / Comment(s): no blood products-pt is a oriental orthodox Additional Psychological History / Comment(s): Pt resides with her spouse. 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 Pt uses no assistive device. She drives. Home is one level with one entrance step. - Past Family History Mother Family Medical History: Osteoarthritis (OA) Additional Family Medical History / Comment(s): . Father Family Medical History: Cancer Additional Family Medical History / Comment(s): Father of LIVER cancer at age 61 yrs. Medications and Allergies Home Medications Medication Instructions Recorded Confirmed Type Clopidogrel [Plavix] 75 mg PO DAILY 01/25/19 03/24/19 History Lisinopril [Zestril] 10 mg PO BID 03/17/19 03/24/19 History Magnebind 300 2 tab PO TID-W/MEALS 03/17/19 03/24/19 History Multivitamins, Thera [Multivitamin 1 tab PO DAILY 03/17/19 03/24/19 History (formulary)] rOPINIRole HCL [Requip] 1 mg PO HS 03/17/19 03/24/19 History Allergies Allergy/AdvReac Type Severity Reaction Status Date / Time No Known Allergies Allergy Verified 03/24/19 07:02 Surgical - Exam Vital Signs Temp Pulse Resp BP Pulse Ox 97.3 F L 88 16 163/86 99 03/24/19 07:09 03/24/19 07:09 03/24/19 07:09 03/24/19 07:09 03/24/19 07:09 - General well developed, well nourished, no distress - Eyes PERRL - ENT normal pinna - Neck no masses - Respiratory normal expansion - Cardiovascular Rhythm: regular - Abdomen Abdomen: soft, non tender Hernia: incisional (10 cm incisional hernia located in the upper portion of the abdomen. The hernia is reducible.) Results - Labs 03/24/19 07:42 Diabetes panel 03/24/19 Range/Units 07:42 Potassium 5.1 (3.5-5.1) mmol/L Pituitary panel 03/24/19 Range/Units 07:42 Potassium 5.1 (3.5-5.1) mmol/L Adrenal panel 03/24/19 Range/Units 07:42 Potassium 5.1 (3.5-5.1) mmol/L Assessment and Plan Assessment: Incisional hernia. We'll perform open repair.
--- NOTE | 2019-03-24 08:59 | P.OP ---
Date of Procedure: 03/24/19 Preoperative Diagnosis: Ovarian cysts Postoperative Diagnosis: Same with adhesions Procedure(s) Performed: Exploratory laparotomy with right cystotomy and left salpingo-oophorectomy Anesthesia: ALLYSON Surgeon: Asa Cuellar Physician Office Specialist #1: Noah Platt Estimated Blood Loss (ml): 10 Pathology: other (Left ovary and partial fallopian tube) Condition: stable Disposition: floor Operative Findings: Significant adhesions noted blunt dissection through adhesions was performed. Left ovary grossly enlarged with cystic lesions right ovary cyst popped during dissection Description of Procedure: Patient was taken to the operating suite where a general anesthetic was found be adequate. She was prepped and draped in normal sterile fashion placed in dorsal supine position. Please see Dr. Muller's dictation for all information regar ding initial and concluding part surgery. Once entry into the peritoneum was done blunt dissection of the adhesions was performed to get down to the uterus and ovaries. While dissecting the right adnexal region the cyst on the right ovary popped and appeared to be hemorrhagic cyst. Nothing more was done with this cyst or ovary. Left side was firmly adherent to the rectum and lateral sidewall blunt dissection to free the ovary off of this area was then performed. Once it was fully and fallopian tube had been transected to allow for this dissection, the tubo-ovarian complex including the utero-ovarian ligament was clamped ovary was then excised and stick tied with 0 Vicryl suture. Once excellent hemostasis obtained ovary and part of fallopian tube were sent to pathology for evaluation. This concludes my part of the surgery.
[2019-03-24] MEDS: HYDROmorphone 0.5 MG/0.5 ML SYRINGE IVP PRN ×7 (10:02→23:59)
[2019-03-24] MEDS ORDERED: METOCLOPRAMIDE 5 MG/ML 2 ML VIAL IVP PRN (10:05)
[2019-03-24] MEDS ORDERED: LACTATED RINGERS 1,000 ML IV ONE (10:05)
[2019-03-24] MEDS ORDERED: NALOXONE 0.4 MG/ML 1 ML VIAL IV PRN (10:05)
--- NOTE | 2019-03-24 10:12 | P.OP ---
Date of Procedure: 03/24/19 Preoperative Diagnosis: Incisional hernia Postoperative Diagnosis: Incisional hernia Adhesions Procedure(s) Performed: Lysis of adhesions Repair of large incisional hernia with mesh Left oophrectomy (Dr. Abad) Anesthesia: ALLYSON Surgeon: Noah Platt Estimated Blood Loss (ml): 50 Pathology: other (Left ovary) Condition: stable Disposition: PACU Description of Procedure: The patient's placed the operative table in the supine position. She received general anesthesia. Her abdomen was prepped and draped in the usual sterile fashion. The abdomen was entered through a midline incision. The patient had a large incisional hernia located along her midline scar. The patient a previous midline scar. Approximately 20 minutes of operative time used to lyse adhesions. Dr. Cuellar remove the left ovary first. Please see his operative note. Adhesions to the anterior wall were lysed. And then the fascia was closed with #1 strep and affixed suture. After the fascia was closed a piece of Prolene mesh was cut to appropriate size and secured to the fascia with a secure strep tacker. A STEPHAN drain was placed over top of the repair and brought through separate stab incision. Clark's fascia closed 0 Vicryl. Skin was closed logan. Patient top she will was sent to recovery in stable condition.
[2019-03-24] MEDS: ONDANSETRON 4 MG/2 ML VIAL IVP PRN (11:53)
[2019-03-24 12:19] VITALS: BMI 22.6
--- NOTE | 2019-03-24 12:41 | P.CONS ---
History of Present Illness - Reason for Consult End-stage renal disease, hypertension - History of Present Illness Patient is a pleasant 41-year-old female was admitted for elective incisional hernia repair, patient underwent that surgery along with the additional lysis, left cystectomy and right salpingo-oophorectomy. Patient is coming out of her seizure she denied any complaints at this time except for abdominal soreness. Patient does have history of end-stage renal disease, dialysis dependent Friday. Patient last serum potassium was 5.0 and patient is on lisinopril because of that reason I'll obtain a basic metabolic profile tomorrow. And patient will be resumed on lisinopril blood pressure is fairly stable above 140 systolic. Nephrology will be consulting. Review of Systems REVIEW OF SYSTEMS: CONSTITUTIONAL: No fever, no malaise, no fatigue. HEENT: No recent visual problems or hearing problems. Denied any sore throat. CARDIOVASCULAR: No chest pain, orthopnea, PND, no palpitations, no syncope. PULMONARY: No shortness of breath, no cough, no hemoptysis. GASTROINTESTINAL: No diarrhea, no nausea, no vomiting, no abdominal pain. NEUROLOGICAL: No headaches, no weakness, no numbness. HEMATOLOGICAL: Denies any bleeding or petechiae. GENITOURINARY: Denies any burning micturition, frequency, or urgency. MUSCULOSKELETAL/RHEUMATOLOGICAL: Denies any joint pain, swelling, or any muscle pain. ENDOCRINE: Denies any polyuria or polydipsia. The rest of the 14-point review of systems is negative. Past Medical History Past Medical History: Heart Failure, Diabetes Mellitus, Dialysis, GERD/Reflux, Hyperlipidemia, Hypertension, Renal Disease Additional Past Medical History / Comment(s): End stage RENAL FAILURE WITH CURRENT HEMODIALYSIS, FRI,FRI,FRI-pt states last hemo was yesterday, 12/30/17 because she was having problems with her dialysis cath, past peritoneal dialysis and had peritonitis, respiratory failure due to sepsis and was vented once, IDDM type II, diabetic neuropathy bilateral feet, anemia, hiatal hernia, [id number]."told in past i had ibs", migraines, History of Any Multi-Drug Resistant Organisms: None Reported Past Surgical History: Bowel Resection, Breast Surgery, Cholecystectomy, Hernia Repair Additional Past Surgical History / Comment(s): R breast biopsy X 2 both benign, breast reduction, akosua cataracts removed/ lens implants, HAS HAD 2 PERITONEAL DIALYSIS CATHETERS, AND 5 HEMODIALYSIS CATHETHERS, umbilical hernia repair with ischemic bowel within-small resection, colonoscopy/EGD. Past Anesthesia/Blood Transfusion Reactions: Motion Sickness, Postoperative Nausea & Vomiting (PONV) Additional Past Anesthesia/Blood Transfusion Reaction / Comm: no blood products- pt is a latter day Smoking Status: Never smoker - Past Family History Mother Family Medical History: Osteoarthritis (OA) Additional Family Medical History / Comment(s): . Father Family Medical History: Cancer Additional Family Medical History / Comment(s): Father of LIVER cancer at age 61 yrs. Medications and Allergies Home Medications Medication Instructions Recorded Confirmed Type Clopidogrel [Plavix] 75 mg PO DAILY 01/25/19 03/24/19 History Lisinopril [Zestril] 10 mg PO BID 03/17/19 03/24/19 History Magnebind 300 2 tab PO TID-W/MEALS 03/17/19 03/24/19 History Multivitamins, Thera [Multivitamin 1 tab PO DAILY 03/17/19 03/24/19 History (formulary)] rOPINIRole HCL [Requip] 1 mg PO HS 03/17/19 03/24/19 History Allergies Allergy/AdvReac Type Severity Reaction Status Date / Time No Known Allergies Allergy Verified 03/24/19 07:02 Physical Exam Vitals: Vital Signs Temp Pulse Resp BP Pulse Ox 03/24/19 11:40 97.6 F 74 16 149/80 97 03/24/19 10:55 78 16 149/76 96 03/24/19 10:36 70 15 124/64 92 L 03/24/19 10:21 77 16 140/67 100 03/24/19 10:06 77 17 176/79 99 03/24/19 09:51 96.9 F L 90 18 185/91 93 L 03/24/19 07:09 97.3 F L 88 16 163/86 99 Intake and Output 03/23/19 03/24/19 03/24/19 22:59 06:59 14:59 Intake Total 900 Output Total 50 Balance 850 Intake: IV 900 Output: Estimated Blood Loss 50 PHYSICAL EXAMINATION: GENERAL: The patient is alert and oriented x3, not in any acute distress. Well developed, well nourished. HEENT: Pupils are round and equally reacting to light. EOMI. No scleral icterus. No conjunctival pallor. Normocephalic, atraumatic. No pharyngeal erythema. No thyromegaly. CARDIOVASCULAR: S1 and S2 present. No murmurs, rubs, or gallops. PULMONARY: Chest is clear to auscultation, no wheezing or crackles. ABDOMEN: Patient has an abdominal binder in place sluggish bowel sounds MUSCULOSKELETAL: No joint swelling or deformity. EXTREMITIES: No cyanosis, clubbing, or pedal edema. NEUROLOGICAL: Gross neurological examination did not reveal any focal deficits. SKIN: No rashes. Results CBC & Chem 7: 03/24/19 07:42 Assessment and Plan Plan: -Hypertension continue with lisinopril, will monitor serum potassium because of end-stage renal disease and ARASH inhibitor -End-stage renal disease, dialysis dependent Friday schedule patient may need hemodialysis today nephrology will be consulted. -Status post laparotomy additional lysis, hernia repair in the salt thing oophorectomy and cystectomy. Pain management as per primary service avoid morphine. Patient will be switched to heparin 9 for DVT prophylaxis because of end-stage renal disease and oxygen and will be discontinued Have gastroesophageal reflux disease -Hyperlipidemia
--- NOTE | 2019-03-24 13:12 | P.NPCON ---
History of Present Illness - Reason for Consult end stage renal disease - History of Present Illness Reason for consultation: End-stage renal disease History of present illness: Patient is a 44-year-old female seen in consultation for end-stage renal disease. She is maintained on hemodialysis on a Friday schedule. Patient had a large incisional hernia and patient has been quite symptomatic from it. She's been having intermittent episodes of abdominal discomfort and depressed appetite. She underwent lysis of lesions and repair of large incisional hernia as well as left oophorectomy this morning. She is due for hemodialysis today. Denies chest pain or shortness of breath. She is maintain a clear liquid diet at this time. She is also receiving lactated Ringer's at 125 mL an hour. She admits to pain at the surgical site. Hemodynamically she stable. Vital signs are stable. General: The patient appeared well nourished and normally developed. HEENT: Head exam is unremarkable. Neck is without jugular venous distension. LUNGS: Lungs are clear to auscultation and percussion. Breath sounds decreased. HEART: Rate and Rhythm are regular. First and second heart sounds normal. No murmurs, rubs or gallops. ABDOMEN: Generalized tenderness. EXTREMITITES: No clubbing, cyanosis, or edema. Past Medical History Past Medical History: Heart Failure, Diabetes Mellitus, Dialysis, GERD/Reflux, Hyperlipidemia, Hypertension, Renal Disease Additional Past Medical History / Comment(s): End stage RENAL FAILURE WITH C URRENT HEMODIALYSIS, FRI,FRI,FRI-pt states last hemo was yesterday, 12/30/17 because she was having problems with her dialysis cath, past peritoneal dialysis and had peritonitis, respiratory failure due to sepsis and was vented once, IDDM type II, diabetic neuropathy bilateral feet, anemia, hiatal hernia, [id number]."told in past i had ibs", migraines, History of Any Multi-Drug Resistant Organisms: None Reported Past Surgical History: Bowel Resection, Breast Surgery, Cholecystectomy, Hernia Repair Additional Past Surgical History / Comment(s): R breast biopsy X 2 both benign, breast reduction, akosua cataracts removed/ lens implants, HAS HAD 2 PERITONEAL DIALYSIS CATHETERS, AND 5 HEMODIALYSIS CATHETHERS, umbilical hernia repair with ischemic bowel within-small resection, colonoscopy/EGD. Past Anesthesia/Blood Transfusion Reactions: Motion Sickness, Postoperative Nausea & Vomiting (PONV) Additional Past Anesthesia/Blood Transfusion Reaction / Comment(s): no blood products-pt is a confucianism Smoking Status: Never smoker - Past Family History Mother Family Medical History: Osteoarthritis (OA) Additional Family Medical History / Comment(s): . Father Family Medical History: Cancer Additional Family Medical History / Comment(s): Father of LIVER cancer at age 61 yrs. Medications and Allergies Home Medications Medication Instructions Recorded Confirmed Type Clopidogrel [Plavix] 75 mg PO DAILY 01/25/19 03/24/19 History Lisinopril [Zestril] 10 mg PO BID 03/17/19 03/24/19 History Magnebind 300 2 tab PO TID-W/MEALS 03/17/19 03/24/19 History Multivitamins, Thera [Multivitamin 1 tab PO DAILY 03/17/19 03/24/19 History (formulary)] rOPINIRole HCL [Requip] 1 mg PO HS 03/17/19 03/24/19 History Allergies Allergy/AdvReac Type Severity Reaction Status Date / Time No Known Allergies Allergy Verified 03/24/19 07:02 Physical Exam Vitals: Vital Signs Temp Pulse Resp BP Pulse Ox 03/24/19 11:40 97.6 F 74 16 149/80 97 03/24/19 10:55 78 16 149/76 96 03/24/19 10:36 70 15 124/64 92 L 03/24/19 10:21 77 16 140/67 100 03/24/19 10:06 77 17 176/79 99 03/24/19 09:51 96.9 F L 90 18 185/91 93 L 03/24/19 07:09 97.3 F L 88 16 163/86 99 Intake and Output 03/23/19 03/24/19 03/24/19 22:59 06:59 14:59 Intake Total 900 Output Total 50 Balance 850 Intake: IV 900 Output: Estimated Blood Loss 50 Results - Lab Results 03/24/19 07:42 Assessment and Plan Plan: Assessment: 1. End-stage renal disease may continue hemodialysis on a Friday schedule. 2. Incisional hernia status post surgical repair this morning. 3. Status post left oophorectomy this morning. 4. Hypertension with chronic kidney disease. 5. 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 Plan: Hemodialysis today. Decrease rate of IV fluids to 50 mL an hour. Check labs including magnesium level in the morning. Diet to be advanced per surgical recommendations. Thank you for the consultation. I will continue to follow the patient with you during her hospital stay.
[2019-03-24 15:44] LABS: Glucose,Whole Blood 106 mg/dL (75-99)
[2019-03-24 16:47] LABS: Glucose,Whole Blood 110 mg/dL (75-99)
[2019-03-24] MEDS: INSULIN ASPART (NovoLOG) 100 UNIT/ML VIAL SQ SCH ×2 (16:49→21:00)
[2019-03-24] MEDS: CALCIUM CARB-MAG CARB-FOLIC 1 EACH TAB PO SCH (17:26)
[2019-03-24 20:22] LABS: Glucose,Whole Blood 97 mg/dL (75-99)
[2019-03-24] MEDS: HEPARIN SODIUM,PORCINE 5,000 UNIT/ML 1 ML VIAL SQ SCH (20:43)
[2019-03-24] MEDS: LISINOPRIL 10 MG TAB PO SCH (20:43)
[2019-03-24] MEDS: DOCUSATE 100 MG CAP PO SCH (20:59)
[2019-03-25] MEDS: ONDANSETRON 4 MG/2 ML VIAL IVP PRN (00:02)
[2019-03-25] MEDS: HYDROmorphone 0.5 MG/0.5 ML SYRINGE IVP PRN ×6 (03:52→22:12)
[2019-03-25] MEDS: HYDROcodone/APAP 5-325MG 1 EACH TAB PO PRN ×2 (06:25→13:01)
[2019-03-25 07:17] LABS: Glucose,Whole Blood 104 mg/dL (75-99)
[2019-03-25] MEDS: INSULIN ASPART (NovoLOG) 100 UNIT/ML VIAL SQ SCH ×4 (07:30→20:49)
[2019-03-25] MEDS: CLOPIDOGREL 75 MG TAB PO SCH (08:03)
[2019-03-25] MEDS: LISINOPRIL 10 MG TAB PO SCH ×2 (08:03→20:59)
[2019-03-25] MEDS: HEPARIN SODIUM,PORCINE 5,000 UNIT/ML 1 ML VIAL SQ SCH ×2 (08:03→20:59)
[2019-03-25] MEDS: MULTIVITAMINS, THERA 1 EACH TAB PO SCH (08:03)
[2019-03-25] MEDS: DOCUSATE 100 MG CAP PO SCH ×2 (08:03→20:58)
[2019-03-25] MEDS: CALCIUM CARB-MAG CARB-FOLIC 1 EACH TAB PO SCH ×3 (08:20→17:51)
[2019-03-25 08:25] LABS: Calcium 8.5 mg/dL (8.4-10.2); Magnesium 1.9 mg/dL (1.6-2.3); Potassium 5.2 mmol/L (3.5-5.1)
[2019-03-25] MEDS ORDERED: ENOXAPARIN 30 MG/0.3 ML SYRINGE SQ SCH (09:00)
[2019-03-25 11:24] LABS: Glucose,Whole Blood 95 mg/dL (75-99)
--- NOTE | 2019-03-25 11:58 | P.PN ---
Subjective Patient is seen in follow-up for her incisional disease. She is maintained on hemodialysis on a Friday schedule. Tolerated hemodialysis well yesterday. Tolerating clear diet. Complains of pain at the surgical site but better with medications. Vital signs are stable. General: The patient appeared well nourished and normally developed. HEENT: Head exam is unremarkable. Neck is without jugular venous distension. LUNGS: Lungs are clear to auscultation and percussion. Breath sounds decreased. HEART: Rate and Rhythm are regular. First and second heart sounds normal. No murmurs, rubs or gallops. ABDOMEN: Abdominal exam reveals normal bowel sounds. Non-tender and non- distended. No evidence of peritonitis. EXTREMITITES: No clubbing, cyanosis, or edema. Objective - Vital Signs Vital signs: Vital Signs Temp 99.2 F 03/25/19 05:00 Pulse 91 03/25/19 05:00 Resp 18 03/25/19 05:00 BP 133/72 03/25/19 05:00 Pulse Ox 95 03/25/19 05:00 Intake & Output 03/24/19 03/25/19 03/25/19 18:59 06:59 18:59 Intake Total 900 775 Output Total 2110 90 Balance -1210 685 Intake: IV 900 Intake, IV Titration 775 Amount Lactated Ringers 1,000 ml 775 @ 50 mls/hr IV .Q20H ONE Rx#:[id number] Output: Drainage 60 90 Right Abdomen 60 90 Hemodialysis 2000 Estimated Blood Loss 50 Other: Voiding Method Toilet # Voids 0 - Labs CBC & Chem 7: 03/25/19 07:49 Labs: Abnormal Lab Results - Last 24 Hours (Table) 03/24/19 03/24/19 03/25/19 Range/Units 15:43 16:46 07:15 Sodium (137-145) mmol/L Potassium (3.5-5.1) mmol/L BUN (7-17) mg/dL Creatinine (0.52-1.04) mg/dL Glucose (74-99) mg/dL POC Glucose (mg/dL) 106 H 110 H 104 H (75-99) mg/dL 03/25/19 Range/Units 07:49 Sodium 136 L (137-145) mmol/L Potassium 5.2 H (3.5-5.1) mmol/L BUN 25 H (7-17) mg/dL Creatinine 4.88 H (0.52-1.04) mg/dL Glucose 103 H (74-99) mg/dL POC Glucose (mg/dL) (75-99) mg/dL Assessment and Plan Plan: Assessment: 1. End-stage renal disease may continue hemodialysis on a Friday schedule. 2. Incisional hernia status post surgical repair on March 24. 3. Status post left oophorectomy on March 24. 4. Hypertension with chronic kidney disease. Controlled. 5. 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 Plan: Hemodialysis tomorrow. Hep-Lock IV fluids. Diet to be advanced per surgical recommendations.
--- NOTE | 2019-03-25 12:37 | P.PN ---
Subjective Progress Note Date: 03/25/19 CHIEF COMPLAINT: incisional hernia HISTORY OF PRESENT ILLNESS: patient is status post lysis of adhesions and repair of large incisional hernia with mesh performed by Dr. Platt. Patient also underwent left oophrectomy by Dr. Abad. POD #1. Patient reports soreness at surgical site but reports it is tolerable. Tolerating clear liquid diet. Passing flatus. Denies BM. Denies nausea or vomiting. Had hemodialysis yesterday and tolerated well. PHYSICAL EXAM: VITAL SIGNS: Reviewed. GENERAL: Well-developed in no acute distress. HEENT: No sclera icterus. Extraocular movements grossly intact. Moist buccal mucosa. Head is atraumatic, normocephalic. ABDOMEN: Soft. Nondistended. Appropriate surgical tenderness. Optifoam noted with shadowing. Abdominal binder intact. NEUROLOGIC: Alert and oriented. Cranial nerves II through XII grossly intact. ASSESSMENT: 1. Incisional hernia, status post lysis of adhesions and repair of large incisional hernia with mesh and left oophrectomy 2. CKD, maintained on hemodialysis M, W, F PLAN: 1. Advance diet to full liquid 2. Pain control. Continue Ach[place] 3. Activity as tolerated 4. Incentive spirometry 5. Possible discharge home tomorrow after hemodialysis Nurse practitioner note has been reviewed by physician. Signing provider agrees with the documented findings, assessment, and plan of care. Objective - Vital Signs Vital signs: Vital Signs Temp 99.2 F 03/25/19 05:00 Pulse 91 03/25/19 05:00 Resp 18 03/25/19 05:00 BP 133/72 03/25/19 05:00 Pulse Ox 95 03/25/19 05:00 Intake & Output 03/24/19 03/25/19 03/25/19 18:59 06:59 18:59 Intake Total 900 775 360 Output Total 2110 90 Balance -1210 685 360 Intake: IV 900 Intake, IV Titration 775 Amount Lactated Ringers 1,000 ml 775 @ 50 mls/hr IV .Q20H ONE Rx#:[id number] Oral 360 Output: Drainage 60 90 Right Abdomen 60 90 Hemodialysis 2000 Estimated Blood Loss 50 Other: Voiding Method Toilet # Voids 0 - Labs CBC & Chem 7: 03/25/19 07:49 Labs: Abnormal Lab Results - Last 24 Hours (Table) 08/03/24/19 03/25/19 Range/Units 15:43 16:46 07:15 Sodium (137-145) mmol/L Potassium (3.5-5.1) mmol/L BUN (7-17) mg/dL Creatinine (0.52-1.04) mg/dL Glucose (74-99) mg/dL POC Glucose (mg/dL) 106 H 110 H 104 H (75-99) mg/dL 03/25/19 Range/Units 07:49 Sodium 136 L (137-145) mmol/L Potassium 5.2 H (3.5-5.1) mmol/L BUN 25 H (7-17) mg/dL Creatinine 4.88 H (0.52-1.04) mg/dL Glucose 103 H (74-99) mg/dL POC Glucose (mg/dL) (75-99) mg/dL
--- NOTE | 2019-03-25 14:28 | P.PN ---
Subjective Progress Note Date: 03/25/19 Principal diagnosis: This is a pleasant 44-year-old female who was recently admitted for an elective incisional hernia repair and is being followed closely. Patient underwent incis ional hernia repair, lysis of adhesions, and left oophorectomy yesterday and also had hemodialysis as she is currently on the Friday/Friday/Friday schedule. Patient does have some abdominal discomfort and generalized discomfort from the surgery but is manageable. Patient does have an abdominal binder on and states this is helping. Patient has been up to the side of the bed with assistance. Patient continues to use her incentive spirometer. Patient's STEPHAN drain is still present with serosanguineous fluid draining. Patient denies any chest pain, shortness of breath, or palpitations at this time. Patient denies any nausea or vomiting is able to tolerate clear liquids. Patient states that she will be advancing to full liquids today per surgery. Patient is afebrile at this time. Patient is to receive dialysis tomorrow as scheduled per nephrology recommendations. Guarded prognosis. Objective - Vital Signs Vital signs: Vital Signs Temp 98.1 F 03/25/19 12:46 Pulse 92 03/25/19 12:46 Resp 18 03/25/19 12:46 BP 121/72 03/25/19 12:46 Pulse Ox 95 03/25/19 12:46 Intake & Output 03/24/19 03/25/19 03/25/19 18:59 06:59 18:59 Intake Total 900 775 360 Output Total 2110 90 50 Balance -1210 685 310 Intake: IV 900 Intake, IV Titration 775 Amount Lactated Ringers 1,000 ml 775 @ 50 mls/hr IV .Q20H ONE Rx#:[id number] Oral 360 Output: Drainage 60 90 50 Right Abdomen 60 90 50 Hemodialysis 2000 Estimated Blood Loss 50 Other: Voiding Method Toilet # Voids 0 - Exam Gen: This is a 44-year-old female sitting up in bed in no acute distress. Vital signs are stable. Temp is 98.1F, pulse is 92, respirations are 18, blood pressure is 121/72, oxygen saturation is 95% on room air. HEENT: Head is atraumatic, normocephalic. Pupils equal, round. Sclerae is anicteric. NECK: Supple. No JVD. No lymphadenopathy. No thyromegaly. LUNGS: Clear to auscultation. No wheezes or rhonchi. No intercostal retractions. HEART: Regular rate and rhythm. No murmur. ABDOMEN: Soft. Bowel sounds are present. No masses. Mild tenderness at the incisional site. Dressing is dry and intact with some shadowing noted. STEPHAN drain still present with serosanguineous output EXTREMITIES: No pedal edema. No calf tenderness. NEUROLOGICAL: Patient is awake, alert and oriented x3. Cranial nerves 2 through 12 are grossly intact. - Labs CBC & Chem 7: 03/25/19 07:49 Labs: Abnormal Lab Results - Last 24 Hours (Table) 03/24/19 03/24/19 03/25/19 Range/Units 15:43 16:46 07:15 Sodium (137-145) mmol/L Potassium (3.5-5.1) mmol/L BUN (7-17) mg/dL Creatinine (0.52-1.04) mg/dL Glucose (74-99) mg/dL POC Glucose (mg/dL) 106 H 110 H 104 H (75-99) mg/dL 03/25/19 Range/Units 07:49 Sodium 136 L (137-145) mmol/L Potassium 5.2 H (3.5-5.1) mmol/L BUN 25 H (7-17) mg/dL Creatinine 4.88 H (0.52-1.04) mg/dL Glucose 103 H (74-99) mg/dL POC Glucose (mg/dL) (75-99) mg/dL Assessment and Plan Assessment: Hypertension: Continue with lisinopril, we'll monitor serum potassium because of end-stage renal disease and ARASH inhibitor use End-stage renal disease: Dialysis dependent on Friday/Friday/Friday schedule. Patient received dialysis yesterday. Nephrology is following. Discontinue IV fluids, current creatinine is 4.88 and potassium is 5.2. Will receive dialysis in the morning. Status post laparotomy with lysis of adhesions, hernia repair, and left ooph orectomy. Pain management as per primary services and is to avoid morphine DVT prophylaxis with heparin subq because of end-stage renal disease History of gastroesophageal reflux disease Hyperlipidemia Recommendations and discussion Recommend continue current medications, management, and symptomatically treatment. Continue to encourage incentive spirometer and early ambulation. Encouraged Abdominal binder use. Patient tolerating clear liquid diet and will be advancing to full liquids today. Advance as tolerated per surgical recommendations. Will continue to monitor vital signs and labs closely. Patient will receive dialysis in the morning. Guarded prognosis. Further recommendations to follow. Possible discharge in 24-48 hours.
[2019-03-25 17:25] LABS: Glucose,Whole Blood 102 mg/dL (75-99)
[2019-03-25 19:51] LABS: Hemoglobin A1C 5.4 % (4.0-6.0)
[2019-03-25 20:26] LABS: Glucose,Whole Blood 82 mg/dL (75-99)
[2019-03-26] MEDS: HYDROmorphone 0.5 MG/0.5 ML SYRINGE IVP PRN ×2 (03:36→10:11)
[2019-03-26 07:38] LABS: Glucose,Whole Blood 82 mg/dL (75-99)
[2019-03-26] MEDS: INSULIN ASPART (NovoLOG) 100 UNIT/ML VIAL SQ SCH ×4 (07:38→20:54)
[2019-03-26] MEDS: LISINOPRIL 10 MG TAB PO SCH ×2 (07:57→20:53)
[2019-03-26] MEDS: CLOPIDOGREL 75 MG TAB PO SCH (07:57)
[2019-03-26] MEDS: CALCIUM CARB-MAG CARB-FOLIC 1 EACH TAB PO SCH ×3 (07:57→20:23)
[2019-03-26] MEDS: DOCUSATE 100 MG CAP PO SCH ×2 (07:57→20:53)
[2019-03-26] MEDS: MULTIVITAMINS, THERA 1 EACH TAB PO SCH (07:58)
[2019-03-26] MEDS: HEPARIN SODIUM,PORCINE 5,000 UNIT/ML 1 ML VIAL SQ SCH ×2 (07:58→20:53)
[2019-03-26] MEDS: HYDROcodone/APAP 5-325MG 1 EACH TAB PO PRN ×2 (09:01→15:59)
[2019-03-26 09:57] LABS: Anisocytosis Slight; Basophils % (A) 1 %; Eosinophils # (A) 0.1 k/uL (0-0.7); Eosinophils % (A) 2 %; HGB 8.8 gm/dL (11.4-16.0); Hypochromasia Marked; Lymphocytes # (A) 0.7 k/uL (1.0-4.8); Lymphocytes % (A) 12 %; MCHC 30.3 g/dL (31.0-37.0); MCV 92.5 fL (80.0-100.0); Mean Platelet Volume 7.6; Monocytes # (A) 0.4 k/uL (0-1.0); Monocytes % (A) 7 %; Neutrophils # (A) 4.6 k/uL (1.3-7.7); Neutrophils % (A) 77 %; Platelet Count 230 k/uL (150-450); RBC 3.14 m/uL (3.80-5.40)
[2019-03-26 11:40] LABS: Glucose,Whole Blood 101 mg/dL (75-99)
--- NOTE | 2019-03-26 11:43 | P.PN ---
Subjective Patient is seen in follow-up for end-stage renal disease. She is maintained on hemodialysis on a Friday schedule. Tolerating full liquid diet. Does get intermittent pain at the surgical site. Otherwise doing well. Vital signs are stable. General: The patient appeared well nourished and normally developed. HEENT: Head exam is unremarkable. Neck is without jugular venous distension. LUNGS: Lungs are clear to auscultation and percussion. Breath sounds decreased. HEART: Rate and Rhythm are regular. First and second heart sounds normal. No murmurs, rubs or gallops. ABDOMEN: Abdominal exam reveals normal bowel sounds. Non-tender and non- distended. No evidence of peritonitis. EXTREMITITES: No clubbing, cyanosis, or edema. Objective - Vital Signs Vital signs: Vital Signs Temp 98.5 F 03/26/19 05:00 Pulse 95 03/26/19 05:00 Resp 16 03/26/19 05:00 BP 113/73 03/26/19 05:00 Pulse Ox 99 03/26/19 05:00 Intake & Output 03/25/19 03/26/19 03/26/19 18:59 06:59 18:59 Intake Total 360 1240 Output Total 150 90 Balance 210 1240 -90 Intake: Oral 360 1240 Output: Drainage 50 90 Right Abdomen 50 90 Urine 100 Other: Voiding Method Toilet Toilet Toilet - Labs CBC & Chem 7: 03/26/19 08:29 03/25/19 07:49 Labs: Abnormal Lab Results - Last 24 Hours (Table) 03/25/19 03/26/19 03/26/19 Range/Units 17:24 08:29 11:36 RBC 3.14 L (3.80-5.40) m/uL Hgb 8.8 L (11.4-16.0) gm/dL Hct 29.0 L (34.0-46.0) % MCHC 30.3 L (31.0-37.0) g/dL RDW 17.0 H (11.5-15.5) % Lymphocytes # 0.7 L (1.0-4.8) k/uL POC Glucose (mg/dL) 102 H 101 H (75-99) mg/dL Assessment and Plan Plan: Assessment: 1. End-stage renal disease may continue hemodialysis on a Friday schedule. 2. Incisional hernia status post surgical repair on March 24. 3. Status post left oophorectomy on March 24. 4. Hypertension with chronic kidney disease. Controlled. 5. 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 6. Anemia of chronic kidney disease. Plan: Hemodialysis today. Diet to be advanced per surgical recommendations. Add Aranesp. Check iron studies. Stable to be discharged home from nephrology standpoint.
[2019-03-26] MEDS ORDERED: DARBEPOETIN ALFA 40 MCG/0.4 ML SYRINGE SQ SCH (12:00)
--- NOTE | 2019-03-26 12:19 | P.PN ---
<Yasmeen Sandhu A - Last Filed: 03/26/19 12:15> Subjective Progress Note Date: 03/26/19 CHIEF COMPLAINT: incisional hernia HISTORY OF PRESENT ILLNESS: patient is status post lysis of adhesions and repair of large incisional hernia with mesh performed by Dr. Platt. Patient also underwent left oophrectomy by Dr. Abad. POD #2. Patient reports pain this morning to incisions. She had [place] this morning and is requesting Dilaudid also. She wants to be discharged home today. She is to receive hemodialysis today. She is tolerating full liquid diet. Denies nausea or vomiting. She is passing flatus. Denies bowel movement. WBC 6.0. Hemoglobin 8.8. PHYSICAL EXAM: VITAL SIGNS: Reviewed. GENERAL: Well-developed in no acute distress. HEENT: No sclera icterus. Extraocular movements grossly intact. Moist buccal mucosa. Head is atraumatic, normocephalic. ABDOMEN: Soft. Nondistended. Appropriate surgical tenderness. Optifoam noted with shadowing. Abdominal binder intact. STEPHAN drain with serosanguineous drainage. NEUROLOGIC: Alert and oriented. Cranial nerves II through XII grossly intact. ASSESSMENT: 1. Incisional hernia, status post lysis of adhesions and repair of large incisional hernia with mesh and left oophrectomy 2. CKD, maintained on hemodialysis M, W, F PLAN: 1. Advance diet to Renal diet 2. Patient to receive HD today 3. Activity as tolerated 4. Incentive spirometry 5. Patient hoping to be discharged home this afternoon after hemodialysis. However the patient is still requiring Dilaudid. She will receive a dose now and then will attempt to control her pain with [place] only. If patients pain is not controlled on oral medications, discharge will be held until tomorrow. Nurse practitioner note has been reviewed by physician. Signing provider agrees with the documented findings, assessment, and plan of care. Objective - Vital Signs Vital signs: Vital Signs Temp 98.5 F 03/26/19 05:00 Pulse 95 03/26/19 05:00 Resp 16 03/26/19 05:00 BP 113/73 03/26/19 05:00 Pulse Ox 99 03/26/19 05:00 Intake & Output 03/25/19 03/26/19 03/26/19 18:59 06:59 18:59 Intake Total 360 1240 Output Total 150 90 Balance 210 1240 -90 Intake: Oral 360 1240 Output: Drainage 50 90 Right Abdomen 50 90 Urine 100 Other: Voiding Method Toilet Toilet Toilet - Labs CBC & Chem 7: 03/26/19 08:29 03/25/19 07:49 Labs: Abnormal Lab Results - Last 24 Hours (Table) 03/25/19 03/26/19 03/26/19 Range/Units 17:24 08:29 11:36 RBC 3.14 L (3.80-5.40) m/uL Hgb 8.8 L (11.4-16.0) gm/dL Hct 29.0 L (34.0-46.0) % MCHC 30.3 L (31.0-37.0) g/dL RDW 17.0 H (11.5-15.5) % Lymphocytes # 0.7 L (1.0-4.8) k/uL POC Glucose (mg/dL) 102 H 101 H (75-99) mg/dL <Gerson Aguilar - Last Filed: 03/26/19 17:35> Subjective As above. Patient doing well. Pain is improved. Currently having hemodialysis. His will not be finished until later today. We'll discharge michael rrow morning. Objective - Vital Signs Vital signs: Vital Signs Temp 98.4 F 03/26/19 12:22 Pulse 92 03/26/19 12:22 Resp 17 03/26/19 12:22 BP 127/75 03/26/19 12:22 Pulse Ox 96 03/26/19 12:22 Intake & Output 03/25/19 03/26/19 03/26/19 18:59 06:59 18:59 Intake Total 360 1240 400 Output Total 150 60 90 Balance 210 1180 310 Intake: Oral 360 1240 400 Output: Drainage 50 60 90 Right Abdomen 50 60 90 Urine 100 Other: Voiding Method Toilet Toilet Toilet - Labs CBC & Chem 7: 03/26/19 08:29 03/25/19 07:49 Labs: Abnormal Lab Results - Last 24 Hours (Table) 03/25/19 03/26/19 03/26/19 Range/Units 07:49 08:29 11:36 RBC 3.14 L (3.80-5.40) m/uL Hgb 8.8 L (11.4-16.0) gm/dL Hct 29.0 L (34.0-46.0) % MCHC 30.3 L (31.0-37.0) g/dL RDW 17.0 H (11.5-15.5) % Lymphocytes # 0.7 L (1.0-4.8) k/uL POC Glucose (mg/dL) 101 H (75-99) mg/dL Iron 13 L (50-170) ug/dL TIBC 154 L (228-460) ug/dL Iron Saturation 8.44 L (12.00-45.00)
--- NOTE | 2019-03-26 15:51 | P.PN ---
Subjective Progress Note Date: 03/26/19 Principal diagnosis: This is a pleasant 44-year-old female who was recently admitted for an elective incisional hernia repair and is being followed closely. Patient underwent incis ional hernia repair, lysis of adhesions, and left oophorectomy yesterday and also had hemodialysis as she is currently on the Friday/Friday/Friday schedule. Patient does have some abdominal discomfort and generalized discomfort from the surgery but is manageable. Patient does have an abdominal binder on and states this is helping. Patient has been up to the side of the bed with assistance. Patient continues to use her incentive spirometer. Patient's STEPHAN drain is still present with serosanguineous fluid draining. Patient denies any chest pain, shortness of breath, or palpitations at this time. Patient denies any nausea or vomiting is able to tolerate clear liquids. Patient states that she will be advancing to full liquids today per surgery. Patient is afebrile at this time. Patient is to receive dialysis tomorrow as scheduled per nephrology recommendations. Guarded prognosis. 03/26/2019 Patient is sitting up at the side of the bed in no acute distress. Abdominal binder is still in place along with STEPHAN drain. Patient is having some abdominal incision tenderness and discomfort this morning with movement. Patient has been attempting [place] for pain relief and also has IV Dilaudid. Patient is getting up and walking to the bathroom and back. Patient is passing gas. Patient denies any nausea or vomiting and is tolerating diet. Patient's diet was advanced. Patient is scheduled to have hemodialysis today as she is on a Friday/Friday/Friday schedule. Patient states that she has been using her incentive spirometer. Patient would like to go home today. Surgery would like to see better pain control prior to discharge. Patient denies any chest pain, shortness of breath, or palpitations at this time. Patient is afebrile. Guarded prognosis. Objective - Vital Signs Vital signs: Vital Signs Temp 98.4 F 03/26/19 12:22 Pulse 92 03/26/19 12:22 Resp 17 03/26/19 12:22 BP 127/75 03/26/19 12:22 Pulse Ox 96 03/26/19 12:22 Intake & Output 03/25/19 03/26/19 03/26/19 18:59 06:59 18:59 Intake Total 360 1240 400 Output Total 150 90 Balance 210 1240 310 Intake: Oral 360 1240 400 Output: Drainage 50 90 Right Abdomen 50 90 Urine 100 Other: Voiding Method Toilet Toilet Toilet - Exam Gen: This is a 44-year-old female sitting up at the side of the bed eating in no acute distress. Vital signs are stable. Temp is 98.5F, pulse is 95, respirations are 16, blood pressure is 113/73, oxygen saturation is 99% on room air. HEENT: Head is atraumatic, normocephalic. Pupils equal, round. Sclerae is anicteric. NECK: Supple. No JVD. No lymphadenopathy. No thyromegaly. LUNGS: Clear to auscultation. No wheezes or rhonchi. No intercostal retractions. HEART: Regular rate and rhythm. No murmur. ABDOMEN: Soft. Bowel sounds are present. No masses. Mild tenderness at the incisional site. Dressing is dry and intact with some shadowing noted. STEPHAN drain still present with serosanguineous output. Abdominal binder noted on exam EXTREMITIES: No pedal edema. No calf tenderness. NEUROLOGICAL: Patient is awake, alert and oriented x3. Cranial nerves 2 through 12 are grossly intact. Gait is steady - Labs CBC & Chem 7: 03/26/19 08:29 03/25/19 07:49 Labs: Abnormal Lab Results - Last 24 Hours (Table) 03/25/19 03/26/19 03/26/19 Range/Units 17:24 08:29 11:36 RBC 3.14 L (3.80-5.40) m/uL Hgb 8.8 L (11.4-16.0) gm/dL Hct 29.0 L (34.0-46.0) % MCHC 30.3 L (31.0-37.0) g/dL RDW 17.0 H (11.5-15.5) % Lymphocytes # 0.7 L (1.0-4.8) k/uL POC Glucose (mg/dL) 102 H 101 H (75-99) mg/dL Assessment and Plan Assessment: Hypertension: Continue with lisinopril, we'll monitor serum potassium because of end-stage renal disease and ARASH inhibitor use End-stage renal disease: Dialysis dependent on Friday/Friday/Friday schedule. Patient receiving dialysis today. Nephrology is following. Status post laparotomy with lysis of adhesions, hernia repair, and left oophorectomy. Pain management as per primary services and is to avoid morphine DVT prophylaxis with heparin subq because of end-stage renal disease History of gastroesophageal reflux disease Hyperlipidemia Recommendations and discussion Recommend continue current medications, management, and symptomatically treatment. Continue to encourage incentive spirometer and early ambulation. Encouraged Abdominal binder use. Patient tolerating advanced diet. Will continue to monitor vital signs and labs closely. Patient is receiving dialysis today. Guarded prognosis. Further recommendations to follow. Possible discharge in 24 hours if pain is under control and surgery clears.
[2019-03-26] MEDS: ONDANSETRON 4 MG/2 ML VIAL IVP PRN (15:59)
[2019-03-26 17:19] LABS: Iron Saturation 8.44 (12.00-45.00)
[2019-03-26 17:36] LABS: Glucose,Whole Blood 94 mg/dL (75-99)
[2019-03-26 20:55] LABS: Glucose,Whole Blood 75 mg/dL (75-99)
[2019-03-26 22:37] LABS: Glucose,Whole Blood 133 mg/dL (75-99)
[2019-03-27 02:37] LABS: Glucose,Whole Blood 118 mg/dL (75-99)
[2019-03-27] MEDS: ONDANSETRON 4 MG/2 ML VIAL IVP PRN (02:59)
[2019-03-27] MEDS: HYDROcodone/APAP 5-325MG 1 EACH TAB PO PRN ×2 (02:59→10:26)
[2019-03-27 07:16] LABS: Glucose,Whole Blood 90 mg/dL (75-99)
[2019-03-27] MEDS: INSULIN ASPART (NovoLOG) 100 UNIT/ML VIAL SQ SCH ×2 (08:32→13:30)
--- NOTE | 2019-03-27 09:01 | P.PN ---
Subjective Patient is seen in follow-up for end-stage renal disease. She is maintained on hemodialysis on a Friday schedule. Tolerating regular diet now. No issues with hemodialysis yesterday. Vital signs are stable. General: The patient appeared well nourished and normally developed. HEENT: Head exam is unremarkable. Neck is without jugular venous distension. LUNGS: Lungs are clear to auscultation and percussion. Breath sounds decreased. HEART: Rate and Rhythm are regular. First and second heart sounds normal. No murmurs, rubs or gallops. ABDOMEN: Abdominal exam reveals normal bowel sounds. Non-tender and non- distended. No evidence of peritonitis. EXTREMITITES: No clubbing, cyanosis, or edema. Objective - Vital Signs Vital signs: Vital Signs Temp 98.5 F 03/27/19 05:00 Pulse 97 03/27/19 05:00 Resp 16 03/27/19 05:00 BP 129/76 03/27/19 05:00 Pulse Ox 98 03/27/19 05:00 Intake & Output 03/26/19 03/27/19 03/27/19 18:59 06:59 18:59 Intake Total 400 1020 Output Total 90 2160 Balance 310 -1140 Weight 67.5 kg Intake: Oral 400 720 Hemodialysis 300 Output: Drainage 90 60 Right Abdomen 90 60 Urine 300 Hemodialysis 1800 Other: Voiding Method Toilet Toilet # Voids 1 - Labs CBC & Chem 7: 03/26/19 08:29 03/25/19 07:49 Labs: Abnormal Lab Results - Last 24 Hours (Table) 03/25/19 03/26/19 03/26/19 Range/Units 07:49 08:29 11:36 RBC 3.14 L (3.80-5.40) m/uL Hgb 8.8 L (11.4-16.0) gm/dL Hct 29.0 L (34.0-46.0) % MCHC 30.3 L (31.0-37.0) g/dL RDW 17.0 H (11.5-15.5) % Lymphocytes # 0.7 L (1.0-4.8) k/uL POC Glucose (mg/dL) 101 H (75-99) mg/dL Iron 13 L (50-170) ug/dL TIBC 154 L (228-460) ug/dL Iron Saturation 8.44 L (12.00-45.00) Ferritin 1559.7 H (10.0-291.0) ng/mL 03/26/19 03/27/19 Range/Units 22:36 02:35 RBC (3.80-5.40) m/uL Hgb (11.4-16.0) gm/dL Hct (34.0-46.0) % MCHC (31.0-37.0) g/dL RDW (11.5-15.5) % Lymphocytes # (1.0-4.8) k/uL POC Glucose (mg/dL) 133 H 118 H (75-99) mg/dL Iron (50-170) ug/dL TIBC (228-460) ug/dL Iron Saturation (12.00-45.00) Ferritin (10.0-291.0) ng/mL Assessment and Plan Plan: Assessment: 1. End-stage renal disease may continue hemodialysis on a Friday schedule. 2. Incisional hernia status post surgical repair on March 24. 3. Status post left oophorectomy on March 24. 4. Hypertension with chronic kidney disease. Controlled. 5. 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 6. Anemia of chronic kidney disease. High ferritin level noted. Maintained on Aranesp. Plan: Hemodialysis on Friday. Stable to be discharged home from nephrology standpoint.
[2019-03-27] MEDS: CALCIUM CARB-MAG CARB-FOLIC 1 EACH TAB PO SCH ×2 (10:24→13:33)
[2019-03-27] MEDS: CLOPIDOGREL 75 MG TAB PO SCH (10:25)
[2019-03-27] MEDS: DOCUSATE 100 MG CAP PO SCH (10:25)
[2019-03-27] MEDS: LISINOPRIL 10 MG TAB PO SCH (10:26)
[2019-03-27] MEDS: HEPARIN SODIUM,PORCINE 5,000 UNIT/ML 1 ML VIAL SQ SCH (10:26)
[2019-03-27] MEDS: MULTIVITAMINS, THERA 1 EACH TAB PO SCH (10:28)
--- NOTE | 2019-03-27 10:40 | P.PN ---
Progress Note - Text Progress Note Date: 03/27/19 Patient doing well today. She was not ready for discharge last night because dialysis finished so late. Will plan discharge today. Follow-up with Dr. Platt.
[2019-03-27 11:34] LABS: Glucose,Whole Blood 79 mg/dL (75-99)
[2019-03-27 11:50] VITALS: BP 139/77; PULSE 91; RESP 17; TEMP 97.8
--- NOTE | 2019-03-27 21:25 | PN ---
PROGRESS NOTE DATE OF SERVICE: 03/27/2019 This 44-year-old woman who was admitted after laparotomy with lysis of adhesions, is being closely monitored. No chest pain. No palpitations. No fever. EXAM: Alert and oriented x3. Pulse is 91. Blood pressure 139/77, respiration 17, temperature 97.8, pulse ox 98% on room air. HEENT: Conjunctivae normal. NECK: No jugular venous distention. CARDIOVASCULAR: S1, S2 muffled. RESPIRATIONS: Breath sounds diminished in the bases. No rhonchi. No crackles. ABDOMEN is soft, status post surgery. LEGS are no edema. No swelling. CENTRAL NERVOUS SYSTEM: No focal deficits. LABS: WBC 6, hemoglobin 8.8. ASSESSMENT: 1. Hypertension. 2. End-stage renal disease on hemodialysis. 3. Status post laparotomy with lysis of adhesions, hernia repair, left oophorectomy. 4. Deep vein thrombosis prophylaxis. 5. Gastroesophageal reflux disease. 6. Hyperlipidemia. RECOMMENDATIONS AND DISCUSSION: I recommend to continue current medications, management and symptomatic treatment, incentive spirometry. Continue the hemodialysis. Follow closely with primary physician. Further recommendations to follow. MMODL / IJN: [id number] /
== END 2019-03-27 21:17 | disposition home or self-care (01) | DRG 353 ==
LOC: OR 06:49 → 3NMEDONC 09:51 → 2ORMAIN 10:05 → OR 03-27 14:15
PROVIDERS: ADMIT Surgery; ATTEND Surgery
PROC: 5A1D70Z Performance of Urinary Filtration, Intermittent, Less than 6 Hours Per Day (ICD-10-PCS; 2019-03-24)
PROC: 0WUF0JZ Supplement Abdominal Wall with Synthetic Substitute, Open Approach (ICD-10-PCS; principal; 2019-03-24 08:00)
PROC: 3E0M05Z Introduction of Adhesion Barrier into Peritoneal Cavity, Open Approach (ICD-10-PCS; principal; 2019-03-24 08:00)
PROC: 0UT10ZZ Resection of Left Ovary, Open Approach (ICD-10-PCS; 2019-03-24 08:00)
PROC: 0UT60ZZ Resection of Left Fallopian Tube, Open Approach (ICD-10-PCS; 2019-03-24 08:00)
DX: K43.2 Incisional hernia without obstruction or gangrene (principal); N18.6 End stage renal disease; I13.2 Hypertensive heart and chronic kidney disease with heart failure and with stage 5 chronic kidney disease, or end stage renal disease; N83.201 Unspecified ovarian cyst, right side; N83.202 Unspecified ovarian cyst, left side; D63.1 Anemia in chronic kidney disease; E11.22 Type 2 diabetes mellitus with diabetic chronic kidney disease; E11.40 Type 2 diabetes mellitus with diabetic neuropathy, unspecified; E78.5 Hyperlipidemia, unspecified; F32.9 Major depressive disorder, single episode, unspecified; I50.9 Heart failure, unspecified; K21.9 Gastro-esophageal reflux disease without esophagitis; K44.9 Diaphragmatic hernia without obstruction or gangrene; Z79.4 Long term (current) use of insulin; Z99.2 Dependence on renal dialysis; Z90.49 Acquired absence of other specified parts of digestive tract; Z98.42 Cataract extraction status, left eye; Z98.41 Cataract extraction status, right eye; Z79.02 Long term (current) use of antithrombotics/antiplatelets; Z79.899 Other long term (current) drug therapy; N73.6 Female pelvic peritoneal adhesions (postinfective); Z96.1 Presence of intraocular lens
CPT/HCPCS: 80048; 82728; 83036; 83540; 83550; 83735; 84132; 88302; 88305; 90935

== ENCOUNTER → 2019-06-02 | Outpatient (CLI) | payer MEDICARE, BC ==
--- NOTE | 2019-06-03 04:00 | US ---
EXAMINATION TYPE: US pelvis complete transvag DATE OF EXAM: 06/02/2019 COMPARISON: 03/03/2019 CLINICAL HISTORY: 44-year-old female N92.6 IRREG MENSES. Irregular menses, Left oophorectomy and righ t ovarian cyst removed 03/24/19 TECHNIQUE: Transvaginal (TV) and Transabdominal (TA) . Transabdominal sonographic images of the pel vis were acquired. Transvaginal sonographic images were medically necessary to better assess the fol lowing anatomy: right ovary Date of LMP: 05/23/19 EXAM MEASUREMENTS: Uterus: 5.6 x 2.9 x 4.4 cm Endometrial Stripe: 0.3 cm Right Ovary: 5.3 x 2.8 x 4.0 cm Left Ovary: Surgically absent 1. Uterus: Anteverted. Nabothian cysts 2. Endometrium: appears wnl 3. Right Ovary: hypoechoic area = 1.8 x 1.8 x 2.2cm and complex cystic area = 3.5 x 2.2 x 2.4cm with thickened nodular septations. No associated vascularity. The complex cystic area previously measure d 3.5 x 2.1 x 1.8 cm. Stable to minimally larger. 4. Left Ovary: Surgically absent 5. Bilateral Adnexa: wnl 6. Posterior cul-de-sac: wnl IMPRESSION: 1. A complex cystic area within the right ovary shows some thickened nodular septations. It is stable to minimally larger at 3.5 x 2.2 x 2.4 cm, versus 3.5 x 2.1 x 1.8 cm, previously). 2. There is also a new 2.2 cm hypoechoic structure in the right ovary, probably a hemorrhagic cyst. 3. Continued 6-8 week follow-up is recommended for both of these findings. 4. Interval left-sided nephrectomy.
== END ==
LOC: RADUSWWP 15:00
PROVIDERS: ATTEND Obstetrics & Gynecology
DX: N83.291 Other ovarian cyst, right side (principal); R93.89 Abnormal findings on diagnostic imaging of other specified body structures; Z90.5 Acquired absence of kidney
CPT/HCPCS: 76830; 76856

== ENCOUNTER 2021-07-17 07:18 | Day surgery (SDC) | payer MEDICARE, BC ==
[2021-07-16 10:15] VITALS: BMI 25.8
[~2021-07-17 07:18] MED LIST changes: -DEXAMETHASONE SOD PHOSPHATE 10 MG/ML 1 ML VIAL IV ONE; -HEPARIN SODIUM,PORCINE 5,000 UNIT/ML 1 ML VIAL SQ ONE; -LIDOCAINE 1% 20 ML VIAL (10MG/ML) FOR IV START INTRADERMA PRN; -ONDANSETRON 4 MG/2 ML VIAL IVP ONE
[2021-07-17 07:33] VITALS: TEMP 97.8
[2021-07-17] MEDS ORDERED: PROPOFOL 10 MG/ML 20 ML VIAL IV ONE (07:46)
[2021-07-17] MEDS ORDERED: LIDOCAINE 1% INJ 10MG/ML (20 ML MDV) ONE (07:46)
--- NOTE | 2021-07-17 07:52 | P.GSHP ---
History of Present Illness H&P Date: 07/17/21 Chief Complaint: Change in bowel habits 46-year-old female known to our service. Patient being evaluated for possible kidney transplant. Patient with history of change in bowel habits. No rectal bleeding. She has had 3 prior colonoscopies that were normal. No history of colon cancer in family. Past Medical History Past Medical History: Heart Failure, Diabetes Mellitus, Dialysis, GERD/Reflux, Hyperlipidemia, Hypertension, Renal Disease Additional Past Medical History / Comment(s): End stage RENAL FAILURE WITH CURRENT HEMODIALYSIS @ home. Hx of respiratory failure due to sepsis and was vented once, Hx of IDDM type II, diabetic neuropathy bilateral feet, hx. of anemia, hiatal hernia, [id number].Migraines. History of Any Multi-Drug Resistant Organisms: None Reported Past Surgical History: Bowel Resection, Breast Surgery, Cholecystectomy, Hernia Repair Additional Past Surgical History / Comment(s): R breast biopsy X 2 both benign, breast reduction, akosua cataracts removed HAS HAD 2 PERITONEAL DIALYSIS CATHETERS, AND 5 HEMODIALYSIS CATHETHERS, umbilical hernia repair with ischemic bowel within-small resection, colonoscopy/EGD. Removed L Ovary. Graft R arm. Past Anesthesia/Blood Transfusion Reactions: Motion Sickness, Postoperative Nausea & Vomiting (PONV) Additional Past Anesthesia/Blood Transfusion Reaction / Comment(s): no blood products-pt is a Christianity Smoking Status: Never smoker - Past Family History Mother Family Medical History: Osteoarthritis (OA) Additional Family Medical History / Comment(s): . Father Family Medical History: Cancer Additional Family Medical History / Comment(s): Father of LIVER cancer at age 61 yrs. Medications and Allergies Home Medications Medication Instructions Recorded Confirmed Type Magnebind 300 2 tab PO TID-W/MEALS 03/17/19 07/17/21 History Multivitamins, Thera [Multivitamin 1 tab PO DAILY 03/17/19 07/16/21 History (formulary)] lisinopriL [Zestril] 10 mg PO BID 03/17/19 07/16/21 History rOPINIRole HCL [Requip] 1 mg PO HS 03/17/19 07/17/21 History Cinacalcet [Sensipar] 90 mg PO DAILY 07/16/21 07/16/21 History Gabapentin [Neurontin] 100 mg PO QID 07/16/21 07/17/21 History calcitrioL [Calcitriol] 0.25 mcg PO DAILY 07/16/21 07/16/21 History Allergies Allergy/AdvReac Type Severity Reaction Status Date / Time No Known Allergies Allergy Verified 07/17/21 07:29 Surgical - Exam Vital Signs Temp Pulse Resp BP Pulse Ox 97.8 F 84 17 160/81 99 07/17/21 07:31 07/17/21 07:31 07/17/21 07:31 07/17/21 07:31 07/17/21 07:31 Physical exam: General: Well-developed, well-nourished HEENT: Normocephalic, sclerae nonicteric Abdomen: Nontender, nondistended Extremities: No edema Neuro: Alert and oriented Assessment and Plan (1) Change in bowel habits Narrative/Plan: Will proceed with colonoscopy at this time Current Visit: Yes Status: Acute Code(s): R19.4 - CHANGE IN BOWEL HABIT SNOMED Code(s): 199749373
--- NOTE | 2021-07-17 08:08 | P.PCN ---
Date of Procedure: 07/17/21 Procedure(s) Performed: PREOPERATIVE DIAGNOSIS: Change in bowel habits POSTOPERATIVE DIAGNOSIS: Mild diverticulosis PROCEDURE: Colonoscopy ANESTHESIA: MAC SURGEON: Gerson Aguilar M.D. SPECIMENS: None ENDOSCOPIC PROCEDURE: The patient was placed on the endoscopy table in the left decubitus position. The Olympus colonoscope was inserted into the anus and passed under direct visualization to the base of the cecum. The appendiceal orifice was visualized. From that point the scope was slowly withdrawn inspecting all surfaces carefully. There were no neoplastic inflammatory or polypoid lesions throughout the cecum, ascending, transverse, descending, sigmoid and rectum. There was mild scattered diverticulosis noted areas patient did have some retained stool throughout the colon limiting the mucosal visualization slightly. Digital rectal examination was normal. The patient was taken to the recovery room in stable condition per anesthesia guidelines. RECOMMENDATIONS: Resume diet. Follow-up colonoscopy in 10 years.
[2021-07-17 08:14] VITALS: RESP 16
[2021-07-17 08:32] VITALS: BP 149/83; PULSE 81
[2021-07-17 08:41] LABS: Glucose,Whole Blood 104 mg/dL (75-99)
== END 2021-07-17 09:19 | disposition home or self-care (01) ==
LOC: ORWHC2ENDO 07:18
PROVIDERS: ATTEND Surgery
DX: K57.30 Diverticulosis of large intestine without perforation or abscess without bleeding (principal); K21.9 Gastro-esophageal reflux disease without esophagitis; E78.5 Hyperlipidemia, unspecified; I13.2 Hypertensive heart and chronic kidney disease with heart failure and with stage 5 chronic kidney disease, or end stage renal disease; E11.22 Type 2 diabetes mellitus with diabetic chronic kidney disease; I50.9 Heart failure, unspecified; N18.6 End stage renal disease; Z99.2 Dependence on renal dialysis; Z86.19 Personal history of other infectious and parasitic diseases; E11.42 Type 2 diabetes mellitus with diabetic polyneuropathy; Z90.49 Acquired absence of other specified parts of digestive tract; Z98.42 Cataract extraction status, left eye; Z98.41 Cataract extraction status, right eye; Z98.890 Other specified postprocedural states; Z82.61 Family history of arthritis; Z80.9 Family history of malignant neoplasm, unspecified; Z79.899 Other long term (current) drug therapy
CPT/HCPCS: 81025; 45378; J2001; J2704

== ENCOUNTER 2021-08-16 13:53 | Inpatient (IN) | payer MEDICARE, BC ==
--- NOTE | 2021-08-16 14:47 | ED ---
Chest Pain HPI - General Chief Complaint: Chest Pain Stated Complaint: Chest/Side Pain Time Seen by Provider: 08/16/21 14:14 Source: patient, RN notes reviewed Mode of arrival: ambulatory Limitations: no limitations - History of Present Illness Initial Comments: 46-year-old female history of multiple medical issues including renal failure who presents with complaints of the onset of achy throbbing chest pain also right flank pain. 4 couple days. He had nausea vomiting for started none since. No fevers chills nausea vomiting sweats no cough or phlegm production she states she had had similar pain in the past secondary to UTI and ovarian cyst no bruising no dysuria no other complaints this time. Of note patient does have a history of MD Complaint: chest pain - Related Data Home Medications Medication Instructions Recorded Confirmed Magnebind 300 2 tab PO TID-W/MEALS 03/17/19 08/16/21 rOPINIRole HCL [Requip] 1 mg PO BID 03/17/19 08/16/21 Gabapentin [Neurontin] 100 mg PO QID 07/16/21 08/16/21 Calcium Acetate [Phoslo] 667 mg PO TID-W/MEALS 08/16/21 08/16/21 Cinacalcet HCl [Sensipar] 90 mg PO W/SUPPER 08/16/21 08/16/21 Ergocalciferol (Vitamin D2) 1,250 mcg PO MO 08/16/21 08/16/21 [Drisdol (50,000 Iu)] Lidocaine-Prilocaine Cream [Emla 1 applic TOPICAL DAILY PRN 08/16/21 08/16/21 Cream 2.5%/2.5%] Magnebind 300 1 tab PO DAILY PRN 08/16/21 08/16/21 Omeprazole 20 mg PO DAILY 08/16/21 08/16/21 calcitrioL [Calcitriol] 1 mcg PO DAILY 08/16/21 08/16/21 lisinopriL [Zestril] 5 mg PO DAILY PRN 08/16/21 08/16/21 rOPINIRole HCL [Requip] 0.25 mg PO BID 08/16/21 08/16/21 Allergies Allergy/AdvReac Type Severity Reaction Status Date / Time No Known Allergies Allergy Verified 08/16/21 16:04 Review of Systems ROS Statement: Those systems with pertinent positive or pertinent negative responses have been documented in the HPI. ROS Other: All systems not noted in ROS Statement are negative. EKG Findings - EKG Results: EKG: interpreted by KASIA, sinus rhythm (Sinus rhythm 85. Interval 154 QRS duration 90 QT since QTC/45 prolonged QT and no acute ST-T wave changes are is some minimal change or some T-wave inversion in lead 3 that was not seen on a previous EKG dated 03/24/19) Past Medical History Past Medical History: Heart Failure, Diabetes Mellitus, Dialysis, GERD/Reflux, Hyperlipidemia, Hypertension, Renal Disease Additional Past Medical History / Comment(s): End stage RENAL FAILURE WITH CURRENT HEMODIALYSIS @ home. Hx of respiratory failure due to sepsis and was vented once, Hx of IDDM type II, diabetic neuropathy bilateral feet, hx. of anemia, hiatal hernia, [id number].Migraines. History of Any Multi-Drug Resistant Organisms: None Reported Past Surgical History: Bowel Resection, Breast Surgery, Cholecystectomy, Hernia Repair Additional Past Surgical History / Comment(s): R breast biopsy X 2 both benign, breast reduction, akosua cataracts removed HAS HAD 2 PERITONEAL DIALYSIS CATHETERS, AND 5 HEMODIALYSIS CATHETHERS, umbilical hernia repair with ischemic bowel within-small resection, colonoscopy/EGD. Removed L Ovary. Graft R arm. Past Anesthesia/Blood Transfusion Reactions: Motion Sickness, Postoperative Nausea & Vomiting (PONV) Additional Past Anesthesia/Blood Transfusion Reaction / Comment(s): no blood products-pt is a Zoroastrianism Past Psychological History: No Psychological Hx Reported Smoking Status: Never smoker Past Alcohol Use History: Occasional Past Drug Use History: None Reported - Past Family History Mother Family Medical History: Osteoarthritis (OA) Additional Family Medical History / Comment(s): . Father Family Medical History: Cancer Additional Family Medical History / Comment(s): Father of LIVER cancer at age 61 yrs. General Exam - General Exam Comments Initial Comments: This is a well-developed well-nourished awake alert oriented 3 female Limitations: no limitations General appearance: alert, in no apparent distress Head exam: Present: atraumatic, normocephalic, normal inspection Eye exam: Present: normal appearance, PERRL, EOMI. Absent: scleral icterus, conjunctival injection, periorbital swelling ENT exam: Present: normal exam, mucous membranes moist Neck exam: Present: normal inspection, full ROM, other (No stridor JVD or bruits). Absent: tenderness, meningismus, lymphadenopathy Respiratory exam: Present: decreased breath sounds. Absent: respiratory distress, wheezes, rales, rhonchi, stridor, chest wall tenderness Cardiovascular Exam: Present: regular rate, normal rhythm, normal heart sounds. Absent: systolic murmur, diastolic murmur, rubs, gallop, clicks GI/Abdominal exam: Present: soft, tenderness (Mild tenderness palpation of the right flank), normal bowel sounds. Absent: distended, guarding, rebound, rigid, bruit ( no specific point tenderness however.), pulsatile mass Rectal exam: Present: deferred Extremities exam: Present: normal inspection, full ROM, normal capillary refill. Absent: tenderness, pedal edema, joint swelling, calf tenderness Back exam: Present: normal inspection Neurological exam: Present: alert, oriented X3, CN II-XII intact Psychiatric exam: Present: normal affect, normal mood Skin exam: Present: warm, dry, intact, normal color. Absent: rash Course Vital Signs 08/16/21 14:08 Temperature 98.0 F Pulse Rate 87 Respiratory 16 Rate Blood Pressure 146/78 O2 Sat by Pulse 99 Oximetry Chest Pain MDM - MDM Imaging reviewed abdominal x-rays are nonspecific septal 1 small dilated area of small bowel and the x-ray does show evidence of increased pulmonary markings.. I did discuss findings with the patient and with Dr. gandhi who did see the patient in emergency department she does have elevated troponin and elevated d- dimer more likely on the basis of her kidney failure she will be admitted with cardiology and nephrology consultation. Disposition Clinical Impression: Chronic renal failure, Atypical chest pain, Elevated troponin, Elevated d- dimer, Chronic anemia Disposition: ADMITTED IP TO THIS HOSP Condition: Fair Referrals: De Hopper MD [Primary Care Provider] - 1-2 days
[2021-08-16 15:07] LABS: Albumin 3.4 g/dL (3.5-5.0); Calcium 8.7 mg/dL (8.4-10.2); Magnesium 1.6 mg/dL (1.6-2.3); Potassium 3.6 mmol/L (3.5-5.1); Total Bilirubin 0.6 mg/dL (0.2-1.3); Total Protein 6.6 g/dL (6.3-8.2)
--- NOTE | 2021-08-16 15:45 | XR ---
EXAMINATION TYPE: XR chest 2V DATE OF EXAM: 08/16/2021 COMPARISON: 12/31/2017 HISTORY: 46-year-old female with chest pain TECHNIQUE: PA and lateral views FINDINGS: Heart upper limits of normal in size. Interstitial prominence especially mid and lower lungs. Otherwi se, no consolidation or pleural effusion. IMPRESSION: Interstitial prominence especially in the mid and lower lungs. Correlate to exclude bronchitis, asthm a, or atypical pneumonias.
[2021-08-16 15:46] LABS: Anisocytosis Slight; Basophils % (A) 0 %; Eosinophils # (A) 0.2 k/uL (0-0.7); Eosinophils % (A) 3 %; HCT 26.8 % (34.0-46.0); HGB 8.1 gm/dL (11.4-16.0); Hypochromasia Marked; Lymphocytes % (A) 16 %; MCH 25.7 pg (25.0-35.0); MCHC 30.2 g/dL (31.0-37.0); MCV 85.1 fL (80.0-100.0); Mean Platelet Volume 8.7; Monocytes # (A) 0.6 k/uL (0-1.0); Monocytes % (A) 9 %; Neutrophils # (A) 4.2 k/uL (1.3-7.7); Neutrophils % (A) 70 %; Platelet Count 229 k/uL (150-450); RBC 3.15 m/uL (3.80-5.40); RDW 18.7 % (11.5-15.5); WBC 6.1 k/uL (3.8-10.6)
--- NOTE | 2021-08-16 15:47 | XR ---
EXAMINATION TYPE: XR KUB DATE OF EXAM: 08/16/2021 Comparison: 06/11/2018 Clinical History: 46-year-old female Right flank pain Findings: A couple prominent but nondilated bowel loops in the right lower quadrant demonstrate air-fluid level measuring up to 2.6 cm in caliber. Vascular calcifications in the abdomen suggests underlying chroni c kidney disease or diabetes. Vascular stent partially visualized in the right arm. Scattered colonic air extending distally to the rectum. No suspicious calcifications seen. Cholecystectomy clips. Impression: A couple air-fluid levels within nondilated small bowel in the right lower quadrant could represent a regional ileus or enteritis. Overall nonobstructive bowel gas pattern at this time. No free air. No significant stool burden. Visceral artery calcifications throughout the abdomen and a vascular stent in the right arm suggests underlying chronic kidney disease.
[2021-08-16 15:57] LABS: INR 1.4 (<1.2)
[2021-08-16 15:58] LABS: Partial Thromboplastin Time 24.9 sec (22.0-30.0); Prothrombin Time 14.1 sec (9.0-12.0)
[2021-08-16] MEDS ORDERED: HYDROmorphone 1 MG/ML 1 ML SYRINGE IVP STA (16:49)
[2021-08-16] MEDS ORDERED: NITROGLYCERIN OINT 1 INCH/GM PACKET TOPICAL STA (16:49)
--- NOTE | 2021-08-16 16:49 | ED ---
Medical Decision Making - Lab Data Result diagrams: 08/16/21 14:56 08/16/21 14:51 Lab Results 08/16/21 08/16/21 08/16/21 Range/Units 14:51 14:51 14:56 WBC 6.1 (3.8-10.6) k/uL RBC 3.15 L (3.80-5.40) m/uL Hgb 8.1 L (11.4-16.0) gm/dL Hct 26.8 L (34.0-46.0) % MCV 85.1 (80.0-100.0) fL MCH 25.7 (25.0-35.0) pg MCHC 30.2 L (31.0-37.0) g/dL RDW 18.7 H (11.5-15.5) % Plt Count 229 (150-450) k/uL MPV 8.7 Neutrophils % 70 % Lymphocytes % 16 % Monocytes % 9 % Eosinophils % 3 % Basophils % 0 % Neutrophils # 4.2 (1.3-7.7) k/uL Lymphocytes # 1.0 (1.0-4.8) k/uL Monocytes # 0.6 (0-1.0) k/uL Eosinophils # 0.2 (0-0.7) k/uL Basophils # 0.0 (0-0.2) k/uL Hypochromasia Marked Anisocytosis Slight PT (9.0-12.0) sec INR (<1.2) APTT (22.0-30.0) sec D-Dimer (<0.60) mg/L FEU Sodium 137 (137-145) mmol/L Potassium 3.6 (3.5-5.1) mmol/L Chloride 99 (98-107) mmol/L Carbon Dioxide 23 (22-30) mmol/L Anion Gap 15 mmol/L BUN 23 H (7-17) mg/dL Creatinine 6.01 H (0.52-1.04) mg/dL Est GFR (CKD-EPI)AfAm 9 (>60 ml/min/1.73 sqM) Est GFR (CKD-EPI)NonAf 8 (>60 ml/min/1.73 sqM) Glucose 98 (74-99) mg/dL Calcium 8.7 (8.4-10.2) mg/dL Magnesium 1.6 (1.6-2.3) mg/dL Total Bilirubin 0.6 (0.2-1.3) mg/dL AST 19 (14-36) U/L ALT 7 (4-34) U/L Alkaline Phosphatase 69 (38-126) U/L Troponin I 0.296 H* (0.000-0.034) ng/mL NT-Pro-B Natriuret Pep pg/mL Total Protein 6.6 (6.3-8.2) g/dL Albumin 3.4 L (3.5-5.0) g/dL Lipase 26 (23-300) U/L 08/16/21 08/16/21 Range/Units 14:56 15:00 WBC (3.8-10.6) k/uL RBC (3.80-5.40) m/uL Hgb (11.4-16.0) gm/dL Hct (34.0-46.0) % MCV (80.0-100.0) fL MCH (25.0-35.0) pg MCHC (31.0-37.0) g/dL RDW (11.5-15.5) % Plt Count (150-450) k/uL MPV Neutrophils % % Lymphocytes % % Monocytes % % Eosinophils % % Basophils % % Neutrophils # (1.3-7.7) k/uL Lymphocytes # (1.0-4.8) k/uL Monocytes # (0-1.0) k/uL Eosinophils # (0-0.7) k/uL Basophils # (0-0.2) k/uL Hypochromasia Anisocytosis PT 14.1 H (9.0-12.0) sec INR 1.4 H (<1.2) APTT 24.9 (22.0-30.0) sec D-Dimer 0.76 H (<0.60) mg/L FEU Sodium (137-145) mmol/L Potassium (3.5-5.1) mmol/L Chloride (98-107) mmol/L Carbon Dioxide (22-30) mmol/L Anion Gap mmol/L BUN (7-17) mg/dL Creatinine (0.52-1.04) mg/dL Est GFR (CKD-EPI)AfAm (>60 ml/min/1.73 sqM) Est GFR (CKD-EPI)NonAf (>60 ml/min/1.73 sqM) Glucose (74-99) mg/dL Calcium (8.4-10.2) mg/dL Magnesium (1.6-2.3) mg/dL Total Bilirubin (0.2-1.3) mg/dL AST (14-36) U/L ALT (4-34) U/L Alkaline Phosphatase (38-126) U/L Troponin I (0.000-0.034) ng/mL NT-Pro-B Natriuret Pep 69635 pg/mL Total Protein (6.3-8.2) g/dL Albumin (3.5-5.0) g/dL Lipase (23-300) U/L Critical Care Time Critical Care Time: Yes Total Critical Care Time: 31 Critical Care Time: Critical care time includes initial presentation with history physical labs x- rays multiple reevaluation the patient discussed with the main physician review of old charting admission orders and documentation the above Disposition Clinical Impression: Chronic renal failure, Atypical chest pain, Elevated troponin, Elevated d- dimer, Chronic anemia, Non-STEMI (non-ST elevated myocardial infarction) Disposition: ADMITTED IP TO THIS HOSP Condition: Fair Referrals: De Hopper MD [Primary Care Provider] - 1-2 days
[2021-08-16] MEDS ORDERED: HEPARIN SODIUM 1,000 UN/ML (10ML VL) IV ONE (16:50)
[2021-08-16] MEDS ORDERED: lisinopriL 5 MG TAB PO PRN (16:56)
[2021-08-16] MEDS ORDERED: HEPARIN SOD,PORK IN 0.45% NACL 25,000 UNIT in 0.45% NACL 1 250ML.BAG IV SCH (17:00)
[2021-08-16] MEDS: GABAPENTIN 100 MG CAP PO SCH ×2 (17:54→21:30)
[2021-08-16] MEDS: CALCIUM ACETATE 667 MG TAB PO SCH (18:07)
[2021-08-16] MEDS: CINACALCET 30 MG TAB PO SCH (18:34)
[2021-08-16] MEDS: MAGNEBIND PO SCH (18:35)
--- NOTE | 2021-08-16 23:18 | P.HPIM ---
History of Present Illness This is a pleasant 46 years old -Algerian female with past medical history of Heart Failure, Diabetes Mellitus, Dialysis, GERD/Reflux, Hyperlipidemia, Hypertension, End stage RENAL FAILURE WITH CURRENT HEMODIALYSIS @ home, diabetic neuropathy bilateral feet, hiatal hernia, Migraines. no blood products-pt is a Lutheran Presents of one-day duration of central chest pain which gets worse throughout the day and radiating into the back, no radiation to the neck or jaw or arm. No dyspnea. No coughing. Patient has her pain as 60/10 but when I saw emergency room it was rotated down to 2/10. O'clock pressure old thrombin. Associated with a dry cough and but no dyspnea. No vomiting, she makes very little urine with no burning, no headache or weakness or numbness. No leg pain or swelling However patient states that she has some right lower abdominal pain since yesterday with some loose stool but she trips her loose stool to her irritable bowel syndrome She denies smoking or illicit drugs. She drinks COLD occasionally She is hemodynamically stable. Labs showing hemoglobin 8.1, WBC 6.1, platelets is normal. Creatinine 6.0 other than that her BMP and liver enzymes are unremar kable. Troponin elevated at 0.09. Chest x-ray: Interstitial prominence especially in the mid and lower lungs. Exclude bronchitis, asthma or atypical pneumonia KUB a couple air-fluid levels within non-dilated small bowel in the right lower quadrant could represent regional ileus or enteritis. Overall nonobstructive bowel gas pattern at this time. No free air. Review of Systems CONSTITUTIONAL: No fever, no malaise, no fatigue. HEENT: No recent visual problems or hearing problems. Denied any sore throat. CARDIOVASCULAR: No orthopnea, PND, no palpitations, no syncope. PULMONARY: No shortness of breath, no cough, no hemoptysis. GASTROINTESTINAL: no nausea, no vomiting. Normoactive bowel sounds. NEUROLOGICAL: No headaches, no weakness, no numbness. HEMATOLOGICAL: Denies any bleeding or petechiae. GENITOURINARY: Denies any burning micturition, frequency, or urgency. MUSCULOSKELETAL/RHEUMATOLOGICAL: Denies any joint pain, swelling, or any muscle pain. ENDOCRINE: Denies any polyuria or polydipsia. Past Medical History Past Medical History: Heart Failure, Diabetes Mellitus, Dialysis, GERD/Reflux, Hyperlipidemia, Hypertension, Renal Disease Additional Past Medical History / Comment(s): End stage RENAL FAILURE WITH CURRENT HEMODIALYSIS @ home. Hx of respiratory failure due to sepsis and was vented once, Hx of IDDM type II, diabetic neuropathy bilateral feet, hx. of anemia, hiatal hernia, [id number].Migraines. History of Any Multi-Drug Resistant Organisms: None Reported Past Surgical History: Bowel Resection, Breast Surgery, Cholecystectomy, Hernia Repair Additional Past Surgical History / Comment(s): R breast biopsy X 2 both benign, breast reduction, akosua cataracts removed HAS HAD 2 PERITONEAL DIALYSIS CATHETERS, AND 5 HEMODIALYSIS CATHETHERS, umbilical hernia repair with ischemic bowel within-small resection, colonoscopy/EGD. Removed L Ovary. Graft R arm. Past Anesthesia/Blood Transfusion Reactions: Motion Sickness, Postoperative Nausea & Vomiting (PONV) Additional Past Anesthesia/Blood Transfusion Reaction / Comment(s): no blood products-pt is a Lutheran Past Psychological History: No Psychological Hx Reported Smoking Status: Never smoker Past Alcohol Use History: Occasional Past Drug Use History: None Reported - Past Family History Mother Family Medical History: Osteoarthritis (OA) Additional Family Medical History / Comment(s): . Father Family Medical History: Cancer Additional Family Medical History / Comment(s): Father of LIVER cancer at age 61 yrs. Medications and Allergies Home Medications Medication Instructions Recorded Confirmed Type Magnebind 300 2 tab PO TID-W/MEALS 03/17/19 08/16/21 History rOPINIRole HCL [Requip] 1 mg PO BID 03/17/19 08/16/21 History Gabapentin [Neurontin] 100 mg PO QID 07/16/21 08/16/21 History Calcium Acetate [Phoslo] 667 mg PO TID-W/MEALS 08/16/21 08/16/21 History Cinacalcet HCl [Sensipar] 90 mg PO W/SUPPER 08/16/21 08/16/21 History Ergocalciferol (Vitamin D2) 1,250 mcg PO MO 08/16/21 08/16/21 History [Drisdol (50,000 Iu)] Lidocaine-Prilocaine Cream [Emla 1 applic TOPICAL DAILY PRN 08/16/21 08/16/21 History Cream 2.5%/2.5%] Magnebind 300 1 tab PO DAILY PRN 08/16/21 08/16/21 History Omeprazole 20 mg PO DAILY 08/16/21 08/16/21 History calcitrioL [Calcitriol] 1 mcg PO DAILY 08/16/21 08/16/21 History lisinopriL [Zestril] 5 mg PO DAILY PRN 08/16/21 08/16/21 History rOPINIRole HCL [Requip] 0.25 mg PO BID 08/16/21 08/16/21 History Allergies Allergy/AdvReac Type Severity Reaction Status Date / Time No Known Allergies Allergy Verified 08/16/21 16:04 Physical Exam Vitals: Vital Signs Temp Pulse Resp BP Pulse Ox 08/16/21 14:08 98.0 F 87 16 146/78 99 Intake and Output 08/16/21 08/16/21 08/16/21 06:59 14:59 22:59 Other: Weight 64.8 kg GENERAL: The patient is alert and oriented x3, not in any acute distress. Well developed, well nourished. HEENT: Pupils are round and equally reacting to light. EOMI. No scleral icterus. No conjunctival pallor. Normocephalic, atraumatic. No pharyngeal erythema. No thyromegaly. CARDIOVASCULAR: S1 and S2 present. No murmurs, rubs, or gallops. PULMONARY: Chest is clear to auscultation, no wheezing or crackles. ABDOMEN: Soft, nontender, nondistended, normoactive bowel sounds. No palpable organomegaly. MUSCULOSKELETAL: No joint swelling or deformity. EXTREMITIES: No cyanosis, clubbing, or pedal edema. NEUROLOGICAL: Gross neurological examination did not reveal any focal deficits. SKIN: No rashes. No petechiae Results CBC & Chem 7: 08/16/21 14:56 08/16/21 14:51 Labs: Abnormal Lab Results - Last 24 Hours (Table) 08/16/21 08/16/21 08/16/21 Range/Units 14:51 14:51 14:56 RBC 3.15 L (3.80-5.40) m/uL Hgb 8.1 L (11.4-16.0) gm/dL Hct 26.8 L (34.0-46.0) % MCHC 30.2 L (31.0-37.0) g/dL RDW 18.7 H (11.5-15.5) % BUN 23 H (7-17) mg/dL Creatinine 6.01 H (0.52-1.04) mg/dL Troponin I 0.296 H* (0.000-0.034) ng/mL Albumin 3.4 L (3.5-5.0) g/dL Assessment and Plan Assessment: Chest pain, rule out cardiac causes Possible ileitis, rule out C. diff End-stage renal disease on hemodialysis pt is a Lutheran Diabetes mellitus Diabetic nephropathy and neuropathy History of GERD Hypertension Hyperlipidemia anemia of chronic disease Plan: This is a pleasant 89 years old female who presents with chest pain and elevated troponin Cardiology consult We'll do serial troponin Check echocardiogram nephrology team for hemodialysis Checked for C. diff Labs and medication were reviewed.. Continue same treatment. Continue with symptomatic treatment. Resume home medication. Monitor lytes and vitals. DVT and GI prophylaxis. Further recommendations depends on the clinical course of the patient DVT prophylaxis: heparin GI Prophylaxis: Pepcid Prognosis is guarded
[2021-08-17] MEDS: NITROGLYCERIN OINT 1 INCH/GM PACKET TOPICAL SCH ×5 (00:22→23:13)
[2021-08-17] MEDS: NITROGLYCERIN SL TABS 0.4 MG TAB SUBLINGUAL ONE ×2 (03:24→03:33)
[2021-08-17] MEDS ORDERED: NITROGLYCERIN SL TABS 0.4 MG TAB SUBLINGUAL ONE (03:36)
[2021-08-17] MEDS ORDERED: HYDROmorphone 0.5 MG/0.5 ML SYRINGE IVP STA (04:05)
[2021-08-17] MEDS: CALCIUM ACETATE 667 MG TAB PO SCH ×3 (08:43→18:06)
[2021-08-17] MEDS: MAGNEBIND PO SCH ×3 (08:54→18:07)
[2021-08-17] MEDS ORDERED: ASPIRIN 325 MG TAB PO SCH (09:00)
[2021-08-17] MEDS ORDERED: ALPRAZolam 0.5 MG TAB PO PRN (09:12)
[2021-08-17] MEDS ORDERED: ALPRAZolam 0.25 MG TAB PO PRN (09:12)
[2021-08-17] MEDS ORDERED: NITROGLYCERIN SL TABS 0.4 MG TAB SUBLINGUAL PRN ×2 (09:12→14:19)
[2021-08-17] MEDS ORDERED: ATORVASTATIN 80 MG TAB PO STA (09:12)
[2021-08-17] MEDS ORDERED: SODIUM CHLORIDE 0.9% 1,000 ML in EMPTY BAG 1 BAG IV ONE (09:12)
[2021-08-17] MEDS: PANTOPRAZOLE 40 MG TABLET PO SCH (09:29)
[2021-08-17] MEDS: GABAPENTIN 100 MG CAP PO SCH ×4 (09:29→23:14)
--- NOTE | 2021-08-17 09:52 | ECHOF ---
Referral Reason:Rule out heart disease MEASUREMENTS -------- HEIGHT: 160.0 cm WEIGHT: 64.4 kg BP: RVIDd: 3.0 cm (< 3.3) IVSd: 1.2 cm (0.6 - 1.1) LVIDd: 4.2 cm (3.9 - 5.3) LVPWd: 1.2 cm (0.6 - 1.1) IVSs: 1.7 cm LVIDs: 2.9 cm LVPWs: 1.7 cm LA Diam: 3.8 cm (2.7 - 3.8) LAESV Index (A-L): 35.98 ml/m Ao Diam: 3.1 cm (2.0 - 3.7) AV Cusp: 2.3 cm (1.5 - 2.6) MV EXCURSION: 17.896 mm (> 18.000) MV EF SLOPE: 169 mm/s (70 - 150) EPSS: 0.4 cm MV E Cuauhtemoc: 1.44 m/s MV DecT: 162 ms MV A Cuauhtemoc: 0.89 m/s MV E/A Ratio: 1.62 RAP: 5.00 mmHg RVSP: 60.34 mmHg FINDINGS -------- Sinus rhythm. This was a technically good study. The left ventricular size is normal. There is borderline concentric left ventricular hypertrophy. Overall left ventricular systolic function is normal with, an EF between 60 - 65 %. Basal inferior LV wall motion is hypokinetic. The right ventricle is normal in size. LA is moderately dilated 34-39 ml/m2 The right atrium is normal in size. Interatrial and interventricular septum intact. The aortic valve is trileaflet, and appears structurally normal. No aortic stenosis or regurgitation. The mitral valve leaflets are mildly thickened. Mild mitral annular calcification present. Modera te mitral regurgitation is present. Fviy-td-ulipdhqu tricuspid regurgitation present. There is severe pulmonary hypertension. The rig ht ventricular systolic pressure, as measured by Doppler, is 60.34mmHg. Trace/mild (physiologic) pulmonic regurgitation. The aortic root size is normal. Normal inferior vena cava with normal inspiratory collapse consistent with estimated right atrial pre ssure of 5 mmHg. There is a small pericardial effusion located near the left ventricle. CONCLUSIONS -------- 1. The left ventricular size is normal. 2. There is borderline concentric left ventricular hypertrophy. 3. Overall left ventricular systolic function is normal with, an EF between 60 - 65 %. 4. Basal inferior LV wall motion is hypokinetic. 5. LA is moderately dilated 34-39 ml/m2 6. The aortic valve is trileaflet, and appears structurally normal. No aortic stenosis or regurgitati on. 7. The mitral valve leaflets are mildly thickened. 8. Mild mitral annular calcification present. 9. Moderate mitral regurgitation is present. 10. Dikh-sf-gituqbul tricuspid regurgitation present. 11. There is severe pulmonary hypertension. 12. Trace/mild (physiologic) pulmonic regurgitation. 13. There is a small pericardial effusion located near the left ventricle. FLIGHT NURSE: Thu Pickett RDCS
--- NOTE | 2021-08-17 10:43 | P.CRDCN ---
History of Present Illness History of present illness: HISTORY OF PRESENTING ILLNESS This is a pleasant 46-year-old female past medical history significant for type 2 diabetes, hypertension, dyslipidemia, end-stage renal disease on hemodialysis plans for evaluation for renal transplant at [facility] with Dr. Garcia. She follows with Dr. Bauer in the office. We have been asked to see in consultation for chest pain. Patient presents emergency department 08/16/2021 with complaints of chest pain. She states her chest pain. She states her chest pain has been going on for a couple days. It initially woke her up at night. She states yesterday her chest pain was constant. Located on the left side of her chest, describes it as a pressure and squeezing pain. Due to her chest pain being constant yesterday and fluctuating from being intense and would light up. Nothing specific made it better or worse. She did have pain with rest and with activity. She did have some associated nausea. She denies any associated shortness of breath, diaphoresis, palpitations, lightheadedness, dizziness, syncope or near syncope. She denies any history of coronary artery disease or heart failure. She is a nonsmoker. She did have chest pain a few hours of ago this morning, but now resolved. She has a scheduled Lexiscan stress test outpatient on 08/23/21. DIAGNOSTICS EKG reveals sinus rhythm, heart rate 85, T wave inversion in inferior leads. EKG this morning with similar findings Recent echocardiogram in the office 08/02/2021 revealed EF 55%, small hypokinetic area of the inferior wall at the base. Mild concentric left ventricular hypertrophy, moderate to severe mitral regurgitation, mitral valve thickening, mild to moderate tricuspid regurgitation Telemetry tracings indicate sinus mechanism, heart rate 80s/90s. Chest xray interstitial prominence especially in the mid and lower lungs. Laboratory reviewed, troponin 0.29, 0.30, 0.29, d-dimer 0.7, INR 1.4, proBNP 34,600, sodium 137, potassium 3.6, BUN 23, serum creatinine 6.0, magnesium 1.6, WBC 6.1, hemoglobin 8.1, platelets 229, covid 19 negative Current home medications include atenolol, lisinopril, omeprazole, PhosLo, calcitriol, gabapentin REVIEW OF SYSTEMS At the time of my exam: CONSTITUTIONAL: Denies fever or chills. CARDIOVASCULAR: +chest pain, Denies shortness of breath, orthopnea, PND or palpitations. RESPIRATORY: Denies cough. GASTROINTESTINAL: Denies abdominal pain, diarrhea, constipation, nausea or vomiting. MUSCULOSKELETAL: Denies myalgias. NEUROLOGIC: Denies numbness, tingling, headache or weakness. ENDOCRINE: Denies fatigue, weight change, polydipsia or polyurina. GENITOURINARY: Denies burning, hematuria or urgency with micturation. HEMATOLOGIC: +history of anemia Denies bleeding. PHYSICAL EXAMINATION Blood pressure 137/76, heart rate 90, afebrile, saturations 96% on 2 L nasal cannula CONSTITUTIONAL: No apparent distress. HEENT: Head is normocephalic. Pupils are equal, round. Sclerae anicteric. Mucous membranes of the mouth are moist. No JVD. No carotid bruit. CHEST EXAMINATION: Lungs are clear to auscultation. No chest wall tenderness is noted on palpation or with deep breathing. HEART EXAMINATION: Regular rate and rhythm. S1, S2 heard. Systolic ejection murmur noted. ABDOMEN: Soft, nontender. Positive bowel sounds. EXTREMITIES: 2+ peripheral pulses, no lower extremity edema and no calf tenderness. SKIN: warm, dry NEUROLOGIC EXAMINATION: Patient is awake, alert and oriented x3. ASSESSMENT NSTEMI Type 2 Diabetes End stage renal disease on hemodialysis Dyslipidemia PLAN -Obtain 2D echocardiogram and doppler study to assess cardiac structure and function. -Recommend cardiac catheterization at this time. Patient is agreeable -I have discussed the risks, benefits and alternative therapies for the above- mentioned procedure and for both sedation/analgesia as well as necessary blood product administration, if indicated, as they pertain to this patient. The patient has indicated understanding and acceptance of the risks and procedures discussed. Questions have been answered appropriately and she is agreeable to move forward with the above-stated procedure. -NPO -Nephrology consulted for hemodialysis -Plan for cardiac catheterization with possible intervention with Dr. Schaeffer today. -Further recommendations based on clinical course Thank you kindly for this consultation. Nurse Practitioner note has been reviewed, I agree with a documented findings and plan of care. Patient was seen and examined. Past Medical History Past Medical History: Heart Failure, Diabetes Mellitus, Dialysis, GERD/Reflux, Hyperlipidemia, Hypertension, Renal Disease Additional Past Medical History / Comment(s): End stage RENAL FAILURE WITH CURRENT HEMODIALYSIS @ home. Hx of respiratory failure due to sepsis and was vented once, Hx of IDDM type II, diabetic neuropathy bilateral feet, hx. of anemia, hiatal hernia, [id number].Migraines. History of Any Multi-Drug Resistant Organisms: None Reported Past Surgical History: Bowel Resection, Breast Surgery, Cholecystectomy, Hernia Repair Additional Past Surgical History / Comment(s): R breast biopsy X 2 both benign, breast reduction, akosua cataracts removed HAS HAD 2 PERITONEAL DIALYSIS CATHETERS, AND 5 HEMODIALYSIS CATHETHERS, umbilical hernia repair with ischemic bowel within-small resection, colonoscopy/EGD. Removed L Ovary. Graft R arm. Past Anesthesia/Blood Transfusion Reactions: Motion Sickness, Postoperative Nausea & Vomiting (PONV) Additional Past Anesthesia/Blood Transfusion Reaction / Comment(s): no blood products-pt is a [employer] Past Psychological History: No Psychological Hx Reported Smoking Status: Never smoker Past Alcohol Use History: Occasional Past Drug Use History: None Reported - Past Family History Mother Family Medical History: Osteoarthritis (OA) Additional Family Medical History / Comment(s): . Father Family Medical History: Cancer Additional Family Medical History / Comment(s): Father of LIVER cancer at age 61 yrs. Medications and Allergies Home Medications Medication Instructions Recorded Confirmed Type Magnebind 300 2 tab PO TID-W/MEALS 03/17/19 08/16/21 History rOPINIRole HCL [Requip] 1 mg PO BID 03/17/19 08/16/21 History Gabapentin [Neurontin] 100 mg PO QID 07/16/21 08/16/21 History Calcium Acetate [Phoslo] 667 mg PO TID-W/MEALS 08/16/21 08/16/21 History Cinacalcet HCl [Sensipar] 90 mg PO W/SUPPER 08/16/21 08/16/21 History Ergocalciferol (Vitamin D2) 1,250 mcg PO MO 08/16/21 08/16/21 History [Drisdol (50,000 Iu)] Lidocaine-Prilocaine Cream [Emla 1 applic TOPICAL DAILY PRN 08/16/21 08/16/21 History Cream 2.5%/2.5%] Magnebind 300 1 tab PO DAILY PRN 08/16/21 08/16/21 History Omeprazole 20 mg PO DAILY 08/16/21 08/16/21 History calcitrioL [Calcitriol] 1 mcg PO DAILY 08/16/21 08/16/21 History lisinopriL [Zestril] 5 mg PO DAILY PRN 08/16/21 08/16/21 History rOPINIRole HCL [Requip] 0.25 mg PO BID 08/16/21 08/16/21 History Allergies Allergy/AdvReac Type Severity Reaction Status Date / Time No Known Allergies Allergy Verified 08/16/21 16:04 Physical Exam Vitals: Vital Signs Temp Pulse Pulse Resp BP BP Pulse Ox 08/17/21 03:37 88 20 139/76 08/17/21 03:29 89 20 140/76 08/17/21 03:24 98.2 F 90 20 136/75 97 08/16/21 23:50 98.1 F 95 20 162/78 95 08/16/21 20:00 98.1 F 86 20 144/79 100 08/16/21 18:45 98.6 F 84 18 138/78 100 08/16/21 18:20 86 18 138/81 99 08/16/21 16:51 88 18 142/77 100 08/16/21 14:08 98.0 F 87 16 146/78 99 Intake and Output 08/16/21 08/17/21 08/17/21 22:59 06:59 14:59 Intake Total 250 Output Total 100 Balance 250 -100 Intake: Oral 250 Output: Emesis 100 Other: Weight 64.8 kg Results 08/16/21 14:56 08/16/21 14:51 Cardiac Enzymes 08/16/21 08/16/21 08/16/21 Range/Units 14:51 14:51 18:11 AST 19 (14-36) U/L Troponin I 0.296 H* 0.304 H* (0.000-0.034) ng/mL 08/16/21 Range/Units 21:19 AST (14-36) U/L Troponin I 0.292 H* (0.000-0.034) ng/mL Coagulation 08/16/21 08/16/21 Range/Units 14:56 23:39 PT 14.1 H (9.0-12.0) sec APTT 24.9 54.3 H (22.0-30.0) sec CBC 08/16/21 Range/Units 14:56 WBC 6.1 (3.8-10.6) k/uL RBC 3.15 L (3.80-5.40) m/uL Hgb 8.1 L (11.4-16.0) gm/dL Hct 26.8 L (34.0-46.0) % Plt Count 229 (150-450) k/uL Comprehensive Metabolic Panel 08/16/21 Range/Units 14:51 Sodium 137 (137-145) mmol/L Potassium 3.6 (3.5-5.1) mmol/L Chloride 99 (98-107) mmol/L Carbon Dioxide 23 (22-30) mmol/L BUN 23 H (7-17) mg/dL Creatinine 6.01 H (0.52-1.04) mg/dL Glucose 98 (74-99) mg/dL Calcium 8.7 (8.4-10.2) mg/dL AST 19 (14-36) U/L ALT 7 (4-34) U/L Alkaline Phosphatase 69 (38-126) U/L Total Protein 6.6 (6.3-8.2) g/dL Albumin 3.4 L (3.5-5.0) g/dL Current Medications Generic Name Dose Route Start Last Admin Trade Name Freq PRN Reason Stop Dose Admin Acetaminophen 650 mg 08/16/21 21:33 Acetaminophen Tab 325 Mg Tab PO Q6HR PRN Fever and/ or Pain Aspirin 325 mg 08/17/21 09:00 Aspirin 325 Mg Tab PO DAILY [facility] Calcitriol 1 mcg 08/17/21 09:00 Calcitriol 0.25 Mcg Cap PO DAILY [facility] Calcium Acetate 667 mg 08/16/21 17:30 08/16/21 18:07 Calcium Acetate 667 Mg Tab PO 667 mg TID-W/MEALS ALO Administration Cinacalcet 90 mg 08/16/21 17:30 08/16/21 18:34 Cinacalcet 30 Mg Tab PO 90 mg W/SUPPER ALO Administration Ergocalciferol 1,250 mcg 08/20/21 09:00 Ergocalciferol 1,250 Mcg (50,000 Iu) Capsule PO MO ALO Gabapentin 100 mg 08/16/21 18:00 08/16/21 21:30 Gabapentin 100 Mg Cap PO 100 mg QID ALO Administration Heparin Sodium/Sodium Chloride 250 mls @ 7.776 mls/hr 08/16/21 17:00 08/16/21 17:55 25,000 unit/ Sodium Chloride IV 12 units/kg/hr .Q24H [facility] 7.776 mls/hr Administration Protocol 12 UNITS/KG/HR Lisinopril 5 mg 08/16/21 16:56 Lisinopril 5 Mg Tab PO DAILY PRN high blood pressure Nitroglycerin 1 inch 08/17/21 00:00 08/17/21 00:22 Nitroglycerin Oint 1 Inch/Gm Packet TOPICAL Not Given Q6HR [facility] Patient's Own ( 2 tab 08/16/21 17:30 08/16/21 18:35 Magnebind 300 2 Tab) PO Not Given TID-W/MEALS [facility] Pantoprazole Sodium 40 mg 08/17/21 09:00 Pantoprazole 40 Mg Tablet PO DAILY [facility] Ropinirole HCl 1 mg 08/16/21 21:00 08/16/21 21:30 Ropinirole Hcl 1 Mg Tab PO 1 mg BID [facility] Administration Ropinirole HCl 0.25 mg 08/16/21 21:00 08/16/21 21:32 Ropinirole Hcl 0.25 Mg Tab PO 0.25 mg BID [facility] Administration Intake and Output 08/16/21 08/17/21 08/17/21 22:59 06:59 14:59 Intake Total 250 Output Total 100 Balance 250 -100 Intake: Oral 250 Output: Emesis 100 Other: Weight 64.8 kg 08/16/21 14:56 08/16/21 14:51
[2021-08-17 11:41] LABS: Glucose,Whole Blood 104 mg/dL (75-99)
--- NOTE | 2021-08-17 12:08 | P.PN ---
Subjective This is a pleasant 46 years old -[place] female with past medical history of Heart Failure, Diabetes Mellitus, Dialysis, GERD/Reflux, Hyperl ipidemia, Hypertension, End stage RENAL FAILURE WITH CURRENT HEMODIALYSIS @ home, diabetic neuropathy bilateral feet, hiatal hernia, Migraines. no blood products-pt is a [employer] Presents of one-day duration of central chest pain which gets worse throughout the day and radiating into the back, no radiation to the neck or jaw or arm. No dyspnea. No coughing. Patient has her pain as 60/10 but when I saw emergency room it was rotated down to 2/10. O'clock pressure old thrombin. Associated with a dry cough and but no dyspnea. No vomiting, she makes very little urine with no burning, no headache or weakness or numbness. No leg pain or swelling However patient states that she has some right lower abdominal pain since yesterday with some loose stool but she trips her loose stool to her irritable bowel syndrome She denies smoking or illicit drugs. She drinks COLD occasionally She is hemodynamically stable. Labs showing hemoglobin 8.1, WBC 6.1, platelets is normal. Creatinine 6.0 other than that her BMP and liver enzymes are unremarkable. Troponin elevated at 0.09. Chest x-ray: Interstitial prominence especially in the mid and lower lungs. Exclude bronchitis, asthma or atypical pneumonia KUB a couple air-fluid levels within non-dilated small bowel in the right lower quadrant could represent regional ileus or enteritis. Overall nonobstructive bowel gas pattern at this time. No free air. 08/17/2020 Patient today is having less chest pain however is not completely resolved, also she has less right lower quadrant abdominal pain. Her loose bowel movement states that her normal and its no diarrhea. No vomiting. 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 No other specific complaint and she looks comfortable. She is hemodynamically stable. Her echocardiogram showed ejection fraction of 60-65% with moderate mitral regurgitation and severe pulmonary hypertension She is kept on aspirin 81 mg which is a new medication for her as well as his heparin drip. Cardiology team are planning for cardiac cath today. Objective - Vital Signs Vital signs: Vital Signs Temp 98.5 F 08/17/21 11:33 Pulse 89 08/17/21 11:33 Resp 18 08/17/21 11:33 BP 133/72 08/17/21 11:33 Pulse Ox 97 08/17/21 11:33 Intake & Output 08/16/21 08/17/21 08/17/21 18:59 06:59 18:59 Intake Total 250 Output Total 100 Balance 250 -100 Weight 64.8 kg Intake: Oral 250 Output: Emesis 100 Other: # Voids 1 - Exam GENERAL: The patient is alert and oriented x3, not in any acute distress. Well developed, well nourished. HEENT: Pupils are round and equally reacting to light. EOMI. No scleral icterus. No conjunctival pallor. Normocephalic, atraumatic. No pharyngeal erythema. No thyromegaly. CARDIOVASCULAR: S1 and S2 present. No murmurs, rubs, or gallops. PULMONARY: Chest is clear to auscultation, no wheezing or crackles. ABDOMEN: Soft, nontender, nondistended, normoactive bowel sounds. No palpable organomegaly. MUSCULOSKELETAL: No joint swelling or deformity. EXTREMITIES: No cyanosis, clubbing, or pedal edema. NEUROLOGICAL: Gross neurological examination did not reveal any focal deficits. SKIN: No rashes. no petechiae. - Labs CBC & Chem 7: 08/16/21 14:56 08/16/21 14:51 Labs: Abnormal Lab Results - Last 24 Hours (Table) 08/16/21 08/16/21 08/16/21 Range/Units 14:51 14:51 14:56 RBC 3.15 L (3.80-5.40) m/uL Hgb 8.1 L (11.4-16.0) gm/dL Hct 26.8 L (34.0-46.0) % MCHC 30.2 L (31.0-37.0) g/dL RDW 18.7 H (11.5-15.5) % PT (9.0-12.0) sec INR (<1.2) APTT (22.0-30.0) sec D-Dimer (<0.60) mg/L FEU BUN 23 H (7-17) mg/dL Creatinine 6.01 H (0.52-1.04) mg/dL POC Glucose (mg/dL) (75-99) mg/dL Troponin I 0.296 H* (0.000-0.034) ng/mL Albumin 3.4 L (3.5-5.0) g/dL 08/16/21 08/16/21 08/16/21 Range/Units 14:56 18:11 21:19 RBC (3.80-5.40) m/uL Hgb (11.4-16.0) gm/dL Hct (34.0-46.0) % MCHC (31.0-37.0) g/dL RDW (11.5-15.5) % PT 14.1 H (9.0-12.0) sec INR 1.4 H (<1.2) APTT (22.0-30.0) sec D-Dimer 0.76 H (<0.60) mg/L FEU BUN (7-17) mg/dL Creatinine (0.52-1.04) mg/dL POC Glucose (mg/dL) (75-99) mg/dL Troponin I 0.304 H* 0.292 H* (0.000-0.034) ng/mL Albumin (3.5-5.0) g/dL 08/16/21 08/17/21 08/17/21 Range/Units 23:39 09:52 11:39 RBC (3.80-5.40) m/uL Hgb (11.4-16.0) gm/dL Hct (34.0-46.0) % MCHC (31.0-37.0) g/dL RDW (11.5-15.5) % PT (9.0-12.0) sec INR (<1.2) APTT 54.3 H 40.5 H (22.0-30.0) sec D-Dimer (<0.60) mg/L FEU BUN (7-17) mg/dL Creatinine (0.52-1.04) mg/dL POC Glucose (mg/dL) 104 H (75-99) mg/dL Troponin I (0.000-0.034) ng/mL Albumin (3.5-5.0) g/dL Assessment and Plan Assessment: Chest pain, suspicious for non-STEMI Possible ileitis, rule out C. diff End-stage renal disease on hemodialysis pt is a [employer]ish Diabetes mellitus Diabetic nephropathy and neuropathy History of GERD Hypertension Hyperlipidemia anemia of chronic disease Plan: This is a pleasant 89 years old female who presents with chest pain and elevated troponin Cardiology consult We'll do serial troponin Check echocardiogram nephrology team for hemodialysis Checked for C. diff Labs and medication were reviewed.. Continue same treatment. Continue with symptomatic treatment. Resume home medication. Monitor lytes and vitals. DVT and GI prophylaxis. Further recommendations depends on the clinical course of the patient DVT prophylaxis: heparin GI Prophylaxis: Pepcid Prognosis is guarded
[2021-08-17] MEDS ORDERED: MIDAZOLAM 2 MG/2 ML VIAL IV ONE (13:13)
[2021-08-17] MEDS ORDERED: HYDROmorphone 0.5 MG/0.5 ML SYRINGE IVP ONE (13:13)
[2021-08-17] MEDS ORDERED: LIDOCAINE 1% INJ 10MG/ML (20 ML MDV) SQ ONE (13:15)
[2021-08-17] MEDS ORDERED: SODIUM CHLORIDE 0.9% 1,000 ML IV ONE (13:18)
[2021-08-17] MEDS ORDERED: SODIUM CHLORIDE 0.9% 500 ML 500 ML IV ONE (13:18)
[2021-08-17] MEDS: HEPARIN SODIUM 1,000 UN/ML (10ML VL) IV ONE ×2 (13:27→14:23)
[2021-08-17] MEDS ORDERED: IOPAMIDOL-370 125ML BTL INJ ONE (14:14)
[2021-08-17] MEDS ORDERED: NITROGLYCERIN 1000MCG/10ML SYRINGE INTRACORON ONE (14:14)
[2021-08-17] MEDS ORDERED: niCARdipine Syringe (1,000 mcg/10 mL) INTRACORON ONE (14:15)
[2021-08-17] MEDS ORDERED: CLOPIDOGREL 75 MG TAB PO ONE (14:19)
[2021-08-17] MEDS ORDERED: RX INFO: IV CONTRAST WAS GIVEN 1 EACH MISC MISCELLANE PRN (14:19)
[2021-08-17] MEDS ORDERED: MAG HYDROX/AL HYDROX/SIMETH 30 ML CUP PO PRN (14:19)
[2021-08-17] MEDS ORDERED: ATROPINE SULFATE 0.1 MG/ML 10ML SYRINGE IV PRN (14:19)
[2021-08-17] MEDS ORDERED: IOPAMIDOL-370 100ML BTL INJ ONE (14:23)
[2021-08-17] MEDS ORDERED: SODIUM CHLORIDE 0.9% 1,000 ML in EMPTY BAG 1 BAG IV SCH (14:30)
[2021-08-17] MEDS ORDERED: LIDOCAINE-PRILOCAINE 2.5-2.5% CREAM 5 GM TUBE TOPICAL STA (14:35)
[2021-08-17 14:43] VITALS: BMI 25.2
[2021-08-17 15:19] LABS: Chol/HDL Ratio 2.46 Ratio; LDL Cholesterol,Calculated 74.3 mg/dL (0.0-131.0)
[2021-08-17 17:59] LABS: Glucose,Whole Blood 105 mg/dL (75-99)
[2021-08-17] MEDS: CINACALCET 30 MG TAB PO SCH (18:06)
[2021-08-17] MEDS: ACETAMINOPHEN TAB 325 MG TAB PO PRN (20:58)
[2021-08-17 21:01] LABS: Glucose,Whole Blood 92 mg/dL (75-99)
--- NOTE | 2021-08-17 21:50 | CONS ---
CONSULTATION REASON FOR CONSULT: End-stage renal disease. HISTORY OF PRESENT ILLNESS: The patient is a 46-year-old female with end-stage renal disease, maintained on home hemodialysis. The patient was admitted to the hospital with complaints of chest pain which actually woke her up from sleep. The patient denied any shortness of breath. She had borderline elevated troponins of 0.3 and 0.29. The patient was taken for cardiac catheterization and she apparently had intervention done. The note is not available yet at this time. No complaints of fevers or cough. No diarrhea. PAST MEDICAL HISTORY: End-stage renal disease, on home hemodialysis, CKD mineral bone disorder, type 2 diabetes, history of CHF, previous history of bowel resection for adhesions and lysis of adhesions. PAST SURGICAL HISTORY: Bowel resection, breast surgery, cholecystectomy, hernia repair, breast biopsy. PAST SURGICAL HISTORY: Breast reduction, cataract surgery, peritoneal dialysis catheter placement and removal multiple hemodialysis catheters, currently with AV graft on the right arm. SOCIAL HISTORY: Negative for smoking, drug abuse or alcohol abuse. MEDICATIONS: Medications at home prior to admission included: Requip, Neurontin, PhosLo, Sensipar, vitamin D, calcitriol, MagneBind, omeprazole, Zestril and Requip. ALLERGIES: None. REVIEW OF SYSTEMS: As per HPI. Other systems negative. EXAMINATION: Comfortable, awake, not in any acute distress. Blood pressure this morning 137/76, heart rate 90 per minute. She is afebrile. Examination of the heart S1, S2. Examination of the lungs, bilateral breath sounds are heard. Abdomen is soft, nontender. Decreased breath sounds at the bases. Examination of lower extremities shows edema trace bilaterally. WALL MAN exam grossly intact. LAB: Show troponin 0.3, hemoglobin 8.1, sodium 137, potassium 3.6, BUN 23, creatinine 6.0. Coronary virus PCR negative. ASSESSMENT: 1. End-stage renal disease, on home hemodialysis. The patient is due for a treatment today. She will be dialyzed today after cardiac catheterization. 2. CKD mineral bone disorder, maintained on Rocaltrol. 3. Acute non ST elevation myocardial infarction status post cardiac catheterization and coronary stent placement. 4. History of bowel obstruction with multiple adhesions and lysis of adhesions. 5. Hypertension, blood pressure usually not high and sometimes low during treatment. 6. Mild volume overload. PLAN: Hemodialysis today. Goal UF 0.5-1 L as patient has just come out of cardiac catheterization. We will reassess tomorrow for need for renal replacement therapy depending on volume status. Thank you for this consultation. We will continue to follow the patient with you during her hospitalization. SHANNON / HOLLEY: [id number] /
--- NOTE | 2021-08-17 22:26 | CC ---
CARDIAC CATHETERIZATION REPORT DATE OF SERVICE: 08/17/2021 PERFORMING PHYSICIAN: Renaldo Schaeffer M.D. PROCEDURES PERFORMED: 1. Selective right and left coronary angiogram. 2. Successful stenting of the mid left anterior descending artery using a 3.25 x 15 mm Xience drug-eluting stent with an excellent angiographic result and reduction of stenosis from 90% to 0%. 3. Successful stenting of the proximal left circumflex coronary artery using a 2.5 x 15 mm Xience drug-eluting stent with an excellent angiographic result and reduction of stenosis from 100% to 0%. 4. Selective right common femoral artery angiogram. 5. Ultrasound-guided access of the right common femoral artery. INDICATION: The patient is a 46-year-old female with a past medical history significant for end- stage renal disease as well as hypertension and dyslipidemia who was admitted to the hospital with chest discomfort and mildly abnormal troponin. APPROACH: Right common femoral artery. COMPLICATIONS: None. LEVEL OF SEDATION: Moderate, with sedation length of minutes. PROCEDURE DESCRIPTION: After obtaining informed consent, the patient was brought to the cardiac carpenter/labor. The right common femoral artery was cannulated using micropuncture technique. The micropuncture wire passed easily. Then I placed a 6-Haitian sheath at the right common femoral artery. I did selective right common femoral artery from the get go. Selective right and left coronary angiogram was performed using JR4 and JL4 catheters. After that I did intervene on the LAD and LCX. Please see separate paragraph for that. SELECTIVE CORONARY ANGIOGRAM: 1. The right coronary artery is a large-caliber vessel. It is a dominant vessel. The RCA is chronically occluded in the mid portion and fills by collateral from the left coronary system. 2. The left main is a large-caliber vessel and a long left main and calcified left main. The left main into LCX and ramus intermedius and left anterior descending artery. 3. The LCX is a large-caliber vessel. It is a nondominant vessel. The proximal LCX is chronically occluded. The mid and distal left circumflex appeared to have mild disease only. 4. The ramus intermedius is a large-caliber vessel. It has mild disease in the mid portion. 5. The left anterior descending artery is a large-caliber vessel. The LAD proximally appeared to be angiographically normal. The mid LAD has a critical lesion that appeared to be in the range of 90% to 95% and seems to be eccentric. The LAD distally appeared to be angiographically normal. The LAD gives rise to the diagonal branch. PERCUTANEOUS CORONARY INTERVENTION OF THE LAD AND LCX: Anticoagulation was initiated using heparin with continuous ACT monitoring throughout the procedure. Subsequently I did engage the left main using an EBU guiding catheter. The LAD was wired using a Whisper wire. Balloon angioplasty was performed using a 3.0 x 12 mm balloon before I deployed a x 15 mm Xience drug-eluting stent where the stent was positioned under fluoroscopic guidance and deployed under its nominal pressure. The following angiogram showed excellent angiographic results. Subsequently I attempted wiring the left circumflex coronary artery using a Whisper wire with the back-up support of a Super Cross catheter at a 120-degree angle, but that was unsuccessful. Finally I was able to wire it using a Fielder XT wire. Balloon angioplasty was performed initially using a 1.5 mm balloon and subsequently a 2.0 mm balloon before I deployed a 2.5 x 15 mm Xience drug-eluting stent. The stent was positioned under fluoroscopic guidance. The following angiogram showed excellent angiographic results and the procedure was completed without any complication. CONCLUSION: 1. Calcified right and left coronary systems. 2. 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 The RCA fills by bridging collateral from the left coronary system. 3. Chronic total occlusion of the left circumflex in the proximal portion. I did perform successful stenting of the left circumflex with an excellent angiographic result. 4. Critical disease involving the mid left anterior descending artery. I did perform successful stenting of the LAD with an excellent angiographic result as well. POST-PROCEDURE MANAGEMENT: 1. Aggressive cholesterol control. 2. Risk factor modifications. 3. Follow up with the patient. MMODL / IJN: [id number] /
[2021-08-17] MEDS: ONDANSETRON 4 MG/2 ML VIAL IVP PRN (23:13)
[2021-08-18 00:33] LABS: Hepatitis B Surface AB- Quant 3.5 mIU/mL; Hepatitis B Surface Antibody Nonreactive (Nonreactive); Hepatitis B Surface Antigen Nonreactive (Nonreactive)
[2021-08-18] MEDS ORDERED: FUROSEMIDE 10 MG/ML 10 ML VIAL IV STA (00:53)
[2021-08-18] MEDS: ACETAMINOPHEN TAB 325 MG TAB PO PRN ×4 (02:15→23:40)
[2021-08-18] MEDS: NITROGLYCERIN OINT 1 INCH/GM PACKET TOPICAL SCH ×3 (06:24→17:27)
[2021-08-18] MEDS: CALCIUM ACETATE 667 MG TAB PO SCH ×3 (06:24→17:27)
[2021-08-18 06:39] LABS: Glucose,Whole Blood 91 mg/dL (75-99)
[2021-08-18] MEDS ORDERED: HEPARIN SODIUM,PORCINE 2,500 UNIT in SODIUM CHLORIDE 0.9% 250 ML IRRIGATION PRN (07:00)
[2021-08-18] MEDS ORDERED: HEPARIN SODIUM,PORCINE 10,000 UNIT in SODIUM CHLORIDE 0.9% 1,000 ML IRRIGATION PRN (07:00)
[2021-08-18] MEDS: PANTOPRAZOLE 40 MG TABLET PO SCH (08:48)
[2021-08-18] MEDS: ASPIRIN 81 MG PO SCH (08:48)
[2021-08-18] MEDS: CLOPIDOGREL 75 MG TAB PO SCH (08:48)
[2021-08-18] MEDS: GABAPENTIN 100 MG CAP PO SCH ×4 (08:49→20:46)
[2021-08-18] MEDS: MAGNEBIND PO SCH ×3 (08:49→17:27)
[2021-08-18] MEDS: ATORVASTATIN 80 MG TAB PO SCH (08:49)
[2021-08-18 09:00] LABS: Anisocytosis Slight; Basophils % (A) 0 %; Eosinophils # (A) 0.1 k/uL (0-0.7); Eosinophils % (A) 1 %; HGB 7.6 gm/dL (11.4-16.0); Hypochromasia Marked; Lymphocytes # (A) 0.9 k/uL (1.0-4.8); Lymphocytes % (A) 8 %; MCH 25.3 pg (25.0-35.0); MCHC 29.3 g/dL (31.0-37.0); MCV 86.2 fL (80.0-100.0); Mean Platelet Volume 8.4; Monocytes # (A) 0.8 k/uL (0-1.0); Monocytes % (A) 6 %; Neutrophils # (A) 10.5 k/uL (1.3-7.7); Neutrophils % (A) 85 %; Platelet Count 232 k/uL (150-450); RBC 3.01 m/uL (3.80-5.40); RDW 18.4 % (11.5-15.5); WBC 12.4 k/uL (3.8-10.6)
[2021-08-18 09:22] LABS: Potassium 3.4 mmol/L (3.5-5.1)
[2021-08-18] MEDS ORDERED: DARBEPOETIN ALFA 60 MCG/0.3 ML SYRINGE SQ SCH (12:00)
--- NOTE | 2021-08-18 12:12 | PN ---
PROGRESS NOTE Patient is seen for followup for end-stage renal disease. She was dialyzed last night. We had about 1 L of ultrafiltration; however, patient developed worsening shortness of breath. She had frothy sputum as well. There are plans to dialyze her again today with increased UF of about 2 to 3 L as tolerated. Patient had cardiac catheterization yesterday with 2 stents placed in the left circumflex and LAD. She is complaining of some chest pain on lying down and definitely more shortness of breath when she lies down. No fever or chills. On examination today, blood pressure 136/72, heart rate 93 per minute. She is afebrile. EXAMINATION OF THE HEART: S1 and S2. EXAMINATION OF LUNGS: Bilateral breath sounds are heard. Abdomen is soft, non-tender. Examination of lower extremities shows no evidence of edema. JAVA J2EE ARCHITECT EXAM: Grossly intact. Labs show sodium 135, potassium 3.4, BUN 19, creatinine 5.9. ASSESSMENT: 1. End-stage renal disease, on home hemodialysis. Patient had a short treatment yesterday. We will dialyze her again today. 2. Volume overload. Expect improvement with repeat dialysis today. 3. Chest pain, status post cardiac catheterization with 2 coronary stents placed yesterday in the circumflex and LAD. 4. Chronic kidney disease mineral bone disorder. PLAN: Repeat hemodialysis today; UF of about 2 to 3 L as tolerated. MMODL / IJN: [id number] /
--- NOTE | 2021-08-18 12:29 | P.PN ---
Subjective Progress Note Date: 08/18/21 The patient is a 46-year-old female with multiple complex comorbid conditions, who presented to the emergency room with new onset chest pain. She was subsequently diagnosed with a non-ST elevated myocardial infarction and underwent stenting of her mid LAD and left circumflex on 09/17/2021. The patient was interviewed and examined lying comfortably in bed. She states she still has some midsternal discomfort but it is overall improved since her initial presentation. She denies any dyspnea or orthopnea. No heart racing or fluttering. She did have an episode of dizziness and lightheadedness overnight. At that time her blood pressure was normal and there were no arrhythmias on the EKG or telemetry. GENERAL: Well-appearing, well-nourished and in no acute distress. NECK: Supple without JVD or thyromegaly. LUNGS: Breath sounds clear to auscultation bilaterally. Respiration equal and unlabored. No wheezes, rales or rhonchi. HEART: Regular rate and rhythm without rubs or gallops. S1 and S2 heard. Systolic murmur audible. EXTREMITIES: Normal range of motion, no edema. No clubbing or cyanosis. Peripheral pulses intact and strong. Groin site shows small amount of mild bruising. No hematoma. VITALS: Blood pressure 136/72, SpO2 94% on room air, temp 98.3F, pulse 93, respiratory rate 20 TELEMETRY: Sinus mechanism. No ectopy LABS: WBC 12.4, hemoglobin 7.6, hematocrit 26, platelet 232, sodium 135, potassium 3.4, BUN 19, creatinine 5.91 IMPRESSION: Non-ST elevated myocardial infarction Stenting of LAD and left circumflex on 08/17/2021 End-stage renal disease, on hemodialysis Diabetes mellitus Dyslipidemia PLAN: Continue dual antiplatelet therapy Start metoprolol tartrate 25 mg BID Patient may continue workup for renal transplant Further recommendations will be based on clinical course The patient has been seen and evaluated by nurse practitioner and coordinating physician. Plan of care has been reviewed and agreed upon by Dr Miller. Objective - Vital Signs Vital signs: Vital Signs Temp 98.3 F 08/18/21 11:46 Pulse 93 08/18/21 11:46 Resp 20 08/18/21 11:46 BP 136/72 08/18/21 11:46 Pulse Ox 94 L 08/18/21 11:46 Intake & Output 08/17/21 08/18/21 08/18/21 18:59 06:59 18:59 Intake Total 100 Output Total 1000 Balance 100 -1000 Weight 64.8 kg Intake: IV 100 Output: Hemodialysis 1000 Other: # Voids 0 0 - Labs CBC & Chem 7: 08/18/21 08:38 08/18/21 08:38 Labs: Abnormal Lab Results - Last 24 Hours (Table) 08/17/21 08/17/21 08/18/21 Range/Units 09:52 17:58 08:38 WBC (3.8-10.6) k/uL RBC (3.80-5.40) m/uL Hgb (11.4-16.0) gm/dL Hct (34.0-46.0) % MCHC (31.0-37.0) g/dL RDW (11.5-15.5) % Neutrophils # (1.3-7.7) k/uL Lymphocytes # (1.0-4.8) k/uL Sodium 135 L (137-145) mmol/L Potassium 3.4 L (3.5-5.1) mmol/L BUN 19 H (7-17) mg/dL Creatinine 5.91 H (0.52-1.04) mg/dL POC Glucose (mg/dL) 105 H (75-99) mg/dL Calcium 8.0 L (8.4-10.2) mg/dL HDL Cholesterol 60.60 H (40.00-60.00) mg/dL 08/18/21 Range/Units 08:38 WBC 12.4 H (3.8-10.6) k/uL RBC 3.01 L (3.80-5.40) m/uL Hgb 7.6 L (11.4-16.0) gm/dL Hct 26.0 L (34.0-46.0) % MCHC 29.3 L (31.0-37.0) g/dL RDW 18.4 H (11.5-15.5) % Neutrophils # 10.5 H (1.3-7.7) k/uL Lymphocytes # 0.9 L (1.0-4.8) k/uL Sodium (137-145) mmol/L Potassium (3.5-5.1) mmol/L BUN (7-17) mg/dL Creatinine (0.52-1.04) mg/dL POC Glucose (mg/dL) (75-99) mg/dL Calcium (8.4-10.2) mg/dL HDL Cholesterol (40.00-60.00) mg/dL
--- NOTE | 2021-08-18 13:46 | P.PN ---
Subjective This is a pleasant 46 years old -[place] female with past medical history of Heart Failure, Diabetes Mellitus, Dialysis, GERD/Reflux, Hyperl ipidemia, Hypertension, End stage RENAL FAILURE WITH CURRENT HEMODIALYSIS @ home, diabetic neuropathy bilateral feet, hiatal hernia, Migraines. no blood products-pt is a Anabaptism Presents of one-day duration of central chest pain which gets worse throughout the day and radiating into the back, no radiation to the neck or jaw or arm. No dyspnea. No coughing. Patient has her pain as 60/10 but when I saw emergency room it was rotated down to 2/10. O'clock pressure old thrombin. Associated with a dry cough and but no dyspnea. No vomiting, she makes very little urine with no burning, no headache or weakness or numbness. No leg pain or swelling However patient states that she has some right lower abdominal pain since yesterday with some loose stool but she trips her loose stool to her irritable bowel syndrome She denies smoking or illicit drugs. She drinks COLD occasionally She is hemodynamically stable. Labs showing hemoglobin 8.1, WBC 6.1, platelets is normal. Creatinine 6.0 other than that her BMP and liver enzymes are unremarkable. Troponin elevated at 0.09. Chest x-ray: Interstitial prominence especially in the mid and lower lungs. Exclude bronchitis, asthma or atypical pneumonia KUB a couple air-fluid levels within non-dilated small bowel in the right lower quadrant could represent regional ileus or enteritis. Overall nonobstructive bowel gas pattern at this time. No free air. 08/17/2020 Patient today is having less chest pain however is not completely resolved, also she has less right lower quadrant abdominal pain. Her loose bowel movement states that her normal and its no diarrhea. No vomiting. She is nothing by margot for possible evaluation by shirt closer. No other specific complaint and she looks comfortable. She is hemodynamically stable. Her echocardiogram showed ejection fraction of 60-65% with moderate mitral regurgitation and severe pulmonary hypertension She is kept on aspirin 81 mg which is a new medication for her as well as his heparin drip. Cardiology team are planning for cardiac cath today. 08/18/2020 Maykel is a status post PCI and stenting of the proximal LAD for critical stenosis and left circumflex artery before total occlusion. Patient today is postoperative day #1, she is fully awake oriented, she has minimal discomfort in her chest, no chest pain. No abdominal pain which is also mild in her right lower quadrant, She is hemodynamically stable. Hemoglobin 7.6 from 8.1 and WBC jumped from 6 up to 12.4. Heparin drip was stopped, and patient was started on normal saline. Patient will go hemodialysis Objective - Vital Signs Vital signs: Vital Signs Temp 98.3 F 08/18/21 11:46 Pulse 93 08/18/21 11:46 Resp 20 08/18/21 11:46 BP 136/72 08/18/21 11:46 Pulse Ox 94 L 08/18/21 11:46 Intake & Output 08/17/21 08/18/21 08/18/21 18:59 06:59 18:59 Intake Total 100 Output Total 1000 Balance 100 -1000 Weight 64.8 kg Intake: IV 100 Output: Hemodialysis 1000 Other: # Voids 0 0 - Exam GENERAL: The patient is alert and oriented x3, not in any acute distress. Well developed, well nourished. HEENT: Pupils are round and equally reacting to light. EOMI. No scleral icterus. No conjunctival pallor. Normocephalic, atraumatic. No pharyngeal erythema. No thyromegaly. CARDIOVASCULAR: S1 and S2 present. No murmurs, rubs, or gallops. PULMONARY: Chest is clear to auscultation, no wheezing or crackles. ABDOMEN: Soft, nontender, nondistended, normoactive bowel sounds. No palpable organomegaly. MUSCULOSKELETAL: No joint swelling or deformity. EXTREMITIES: No cyanosis, clubbing, or pedal edema. NEUROLOGICAL: Gross neurological examination did not reveal any focal deficits. SKIN: No rashes. no petechiae. - Labs CBC & Chem 7: 08/18/21 08:38 08/18/21 08:38 Labs: Abnormal Lab Results - Last 24 Hours (Table) 08/17/21 08/17/21 08/18/21 Range/Units 09:52 17:58 08:38 WBC (3.8-10.6) k/uL RBC (3.80-5.40) m/uL Hgb (11.4-16.0) gm/dL Hct (34.0-46.0) % MCHC (31.0-37.0) g/dL RDW (11.5-15.5) % Neutrophils # (1.3-7.7) k/uL Lymphocytes # (1.0-4.8) k/uL Sodium 135 L (137-145) mmol/L Potassium 3.4 L (3.5-5.1) mmol/L BUN 19 H (7-17) mg/dL Creatinine 5.91 H (0.52-1.04) mg/dL POC Glucose (mg/dL) 105 H (75-99) mg/dL Calcium 8.0 L (8.4-10.2) mg/dL HDL Cholesterol 60.60 H (40.00-60.00) mg/dL 08/18/21 Range/Units 08:38 WBC 12.4 H (3.8-10.6) k/uL RBC 3.01 L (3.80-5.40) m/uL Hgb 7.6 L (11.4-16.0) gm/dL Hct 26.0 L (34.0-46.0) % MCHC 29.3 L (31.0-37.0) g/dL RDW 18.4 H (11.5-15.5) % Neutrophils # 10.5 H (1.3-7.7) k/uL Lymphocytes # 0.9 L (1.0-4.8) k/uL Sodium (137-145) mmol/L Potassium (3.5-5.1) mmol/L BUN (7-17) mg/dL Creatinine (0.52-1.04) mg/dL POC Glucose (mg/dL) (75-99) mg/dL Calcium (8.4-10.2) mg/dL HDL Cholesterol (40.00-60.00) mg/dL Assessment and Plan Assessment: non-STEMI, status post PCI to the left circumflex and LAD Possible ileitis, rule out C. diff End-stage renal disease on hemodialysis pt is a Anabaptism Diabetes mellitus Diabetic nephropathy and neuropathy History of GERD Hypertension Hyperlipidemia anemia of chronic disease Plan: This is a pleasant 89 years old female who presents with chest pain and elevated troponin Cardiology consult We'll do serial troponin Check echocardiogram nephrology team for hemodialysis Repeat KUB Checked for C. diff Labs and medication were reviewed.. Continue same treatment. Continue with symptomatic treatment. Resume home medication. Monitor lytes and vitals. DVT and GI prophylaxis. Further recommendations depends on the clinical course of the patient DVT prophylaxis: heparin GI Prophylaxis: Pepcid Prognosis is guarded
[2021-08-18] MEDS: METOPROLOL TARTRATE 25 MG TAB PO SCH ×2 (14:48→20:46)
[2021-08-18] MEDS: CINACALCET 30 MG TAB PO SCH (17:27)
--- NOTE | 2021-08-18 17:53 | XR ---
EXAMINATION TYPE: XR KUB DATE OF EXAM: 08/18/2021 5:06 PM INDICATION: Patient age:Female; 46 years old; Reason for study: Mild right abdominal pain; . COMPARISON: 08/16/2021 TECHNIQUE: One radiographic view of the abdomen was obtained. FINDINGS: The bowel gas pattern is nonspecific without dilated loops of small or large bowel. There i s no evidence for organomegaly or pneumoperitoneum. The osseous structures are intact. There is scle rosis of the arterial vasculature is present. Mild multilevel degenerative disease of the spine is no shahid. Pelvic phleboliths are present. Fecal material and gas are demonstrated throughout the colon and rectum. IMPRESSION: No acute abdominal process.
[2021-08-18] MEDS: HYDROcodone/APAP 5-325MG 1 EACH TAB PO PRN (18:43)
[2021-08-19] MEDS: NITROGLYCERIN OINT 1 INCH/GM PACKET TOPICAL SCH ×4 (03:49→17:24)
[2021-08-19] MEDS: CALCIUM ACETATE 667 MG TAB PO SCH ×4 (06:23→17:22)
[2021-08-19] MEDS: MAGNEBIND PO SCH ×3 (06:25→17:23)
[2021-08-19] MEDS: IOPAMIDOL CONTRAST (ORAL USE) VIAL PO PRN ×2 (06:40→06:41)
--- NOTE | 2021-08-19 08:39 | CT ---
EXAMINATION TYPE: CT abdomen pelvis wo con DATE OF EXAM: 08/19/2021 COMPARISON: 01/25/2019 HISTORY: Right lower quadrant pain with diarrhea CT DLP: 416.4 mGycm Automated exposure control for dose reduction was used. TECHNIQUE: Helical acquisition of images was performed from the lung bases through the pelvis. FINDINGS: There are moderate to marked scattered groundglass densities in the lung bases raising the question o f pneumonia possibly Covid pneumonia. There are no pleural effusions. There is no evidence of bowel obstruction but there is diffuse thickening of the wall of the colon co nsistent with inflammatory/ischemic colitis. There are no inflammatory changes within the mesentery. There is no free intraperitoneal air or fluid. There are marked vascular calcifications involving the aorta mesenteric vessels and renal vessels. Th ere is no hydronephrosis. There is no aortic aneurysm or retroperitoneal adenopathy. There is no organomegaly involving the solid visceral organs of the upper abdomen. The osseous structures are intact. IMPRESSION: 1. Diffuse groundglass densities in the lung bases raising the question of pneumonia/Covid pneumonia. 2. Diffuse colonic wall thickening consistent with colitis. 3. No intra-abdominal abscess, mesenteric inflammation, free intraperitoneal air or fluid. 4. Diffuse arteriovascular calcifications.
[2021-08-19] MEDS: GABAPENTIN 100 MG CAP PO SCH ×4 (09:00→21:23)
[2021-08-19] MEDS: PANTOPRAZOLE 40 MG TABLET PO SCH (09:00)
[2021-08-19] MEDS: ASPIRIN 81 MG PO SCH (09:00)
[2021-08-19] MEDS: ATORVASTATIN 80 MG TAB PO SCH (09:01)
[2021-08-19] MEDS: CLOPIDOGREL 75 MG TAB PO SCH (09:01)
[2021-08-19] MEDS: METOPROLOL TARTRATE 25 MG TAB PO SCH ×2 (09:01→21:23)
[2021-08-19] MEDS: PIPERACILLIN-TAZOBACTAM 3.375 GM in SODIUM CHLORIDE 0.9% 100 ML IVPB SCH ×2 (10:55→21:23)
[2021-08-19] MEDS ORDERED: POTASSIUM CHLORIDE ER 20 MEQ TAB.ER PO STA (11:46)
--- NOTE | 2021-08-19 12:36 | P.PN ---
Subjective Progress Note Date: 08/19/21 The patient is a 46-year-old female with multiple complex comorbid conditions, who presented to the emergency room with new onset chest pain. She was subsequently diagnosed with a non-ST elevated myocardial infarction and underwent stenting of her mid LAD and left circumflex on 09/17/2021. The patient was interviewed and examined lying comfortably in bed. She states that her mid sternal discomfort has completely resolved. No more dizziness or lightheadedness. She denies any dyspnea or orthopnea. No heart racing or fluttering. GENERAL: Well-appearing, well-nourished and in no acute distress. NECK: Supple without JVD or thyromegaly. LUNGS: Breath sounds clear to auscultation bilaterally. Respiration equal and unlabored. No wheezes, rales or rhonchi. HEART: Regular rate and rhythm without rubs or gallops. S1 and S2 heard. Systolic murmur audible. EXTREMITIES: Normal range of motion, no edema. No clubbing or cyanosis. Peripheral pulses intact and strong. Groin site shows small amount of mild bruising. No hematoma. VITALS: Blood pressure 134/74, heart rate 83, respiratory rate 20, temp 97.9F, SpO2 100% on 2 L nasal cannula TELEMETRY: Sinus mechanism. No ectopy IMPRESSION: Non-ST elevated myocardial infarction Stenting of LAD and left circumflex on 08/17/2021 End-stage renal disease, on hemodialysis Diabetes mellitus Dyslipidemia PLAN: Continue dual antiplatelet therapy and beta nishant May be discharged from the cardiac standpoint The patient has been seen and evaluated by nurse practitioner and coordinating physician. Plan of care has been reviewed and agreed upon by Dr Miller. Objective - Vital Signs Vital signs: Vital Signs Temp 97.9 F 08/19/21 11:52 Pulse 83 08/19/21 11:52 Resp 20 08/19/21 11:52 BP 134/74 08/19/21 11:52 Pulse Ox 100 08/19/21 11:52 Intake & Output 08/18/21 08/19/21 08/19/21 18:59 06:59 18:59 Intake Total 100 200 Output Total 2500 Balance -2400 200 Intake: Oral 100 200 Output: Hemodialysis 2500 Other: # Voids 0 - Labs CBC & Chem 7: 08/18/21 08:38 08/18/21 08:38
--- NOTE | 2021-08-19 13:24 | PN ---
PROGRESS NOTE Patient is seen for followup for end-stage renal disease. She was admitted to the hospital with chest pain. Patient had cardiac catheterization and had 2 coronary stents placed. In the meantime, she has also been volume overloaded and received extra treatment of hemodialysis yesterday. The patient is normally maintained on home hemodialysis. Patient was complaining of abdominal pain and had a CT of the abdomen done yesterday which showed evidence of colitis. She stated that this morning she has had diarrhea as well. PHYSICAL EXAMINATION: On examination today, blood pressure 135/64, heart rate 83 per minute. She is afebrile. Examination of the heart S1, S2. Examination of the lungs, bilateral breath sounds are heard. Abdomen is soft, nontender. Examination of lower extremities shows no significant edema. WATER AND GAS HELPER exam grossly intact. LAB: Show sodium of 135, potassium 3.4, BUN 19, creatinine 5.9, hemoglobin 7.6 g/dL. ASSESSMENT: 1. End-stage renal disease, maintained on home hemodialysis. We will plan for a treatment tomorrow. 2. Volume overload currently improving. We will plan for about 2-3 L of ultrafiltration tomorrow. 3. Hypokalemia status post replacement,associated with diarrhea, decreased oral intake. 4. Anemia no active gastrointestinal bleed noted. Patient is maintained on Aranesp. Check iron profile. 5. Colitis noted on CT scan. Currently maintained on antibiotics and will follow for now. 6. Chronic kidney disease, mineral bone disorder. 7. Coronary artery disease status post cardiac catheterization with 2 coronary stent placements. PLAN: Continue with Sensipar, Rocaltrol, PhosLo. Continue with IV antibiotics. Continue Aranesp. Check iron profile. Hemodialysis in a.m. Goal UF 2-3 L as tolerated. MMODL / IJN: [id number] /
[2021-08-19] MEDS: CINACALCET 30 MG TAB PO SCH (17:22)
[2021-08-19] MEDS ORDERED: LOPERAMIDE 2 MG CAP PO PRN (19:00)
--- NOTE | 2021-08-19 19:21 | P.PN ---
Subjective This is a pleasant 46 years old -Mac[place] female with past medical history of Heart Failure, Diabetes Mellitus, Dialysis, GERD/Reflux, Hyperl ipidemia, Hypertension, End stage RENAL FAILURE WITH CURRENT HEMODIALYSIS @ home, diabetic neuropathy bilateral feet, hiatal hernia, Migraines. no blood products-pt is a Taoist Presents of one-day duration of central chest pain which gets worse throughout the day and radiating into the back, no radiation to the neck or jaw or arm. No dyspnea. No coughing. Patient has her pain as 60/10 but when I saw emergency room it was rotated down to 2/10. O'clock pressure old thrombin. Associated with a dry cough and but no dyspnea. No vomiting, she makes very little urine with no burning, no headache or weakness or numbness. No leg pain or swelling However patient states that she has some right lower abdominal pain since yesterday with some loose stool but she trips her loose stool to her irritable bowel syndrome She denies smoking or illicit drugs. She drinks COLD occasionally She is hemodynamically stable. Labs showing hemoglobin 8.1, WBC 6.1, platelets is normal. Creatinine 6.0 other than that her BMP and liver enzymes are unremarkable. Troponin elevated at 0.09. Chest x-ray: Interstitial prominence especially in the mid and lower lungs. Exclude bronchitis, asthma or atypical pneumonia KUB a couple air-fluid levels within non-dilated small bowel in the right lower quadrant could represent regional ileus or enteritis. Overall nonobstructive bowel gas pattern at this time. No free air. 08/17/2020 Patient today is having less chest pain however is not completely resolved, also she has less right lower quadrant abdominal pain. Her loose bowel movement states that her normal and its no diarrhea. No vomiting. She is nothing by margot for possible evaluation by project executive. No other specific complaint and she looks comfortable. She is hemodynamically stable. Her echocardiogram showed ejection fraction of 60-65% with moderate mitral regurgitation and severe pulmonary hypertension She is kept on aspirin 81 mg which is a new medication for her as well as his heparin drip. Cardiology team are planning for cardiac cath today. 08/18/2020 Maykel is a status post PCI and stenting of the proximal LAD for critical stenosis and left circumflex artery before total occlusion. Patient today is postoperative day #1, she is fully awake oriented, she has minimal discomfort in her chest, no chest pain. No abdominal pain which is also mild in her right lower quadrant, She is hemodynamically stable. Hemoglobin 7.6 from 8.1 and WBC jumped from 6 up to 12.4. Heparin drip was stopped, and patient was started on normal saline. Patient will go hemodialysis 08/19/2020 Patient with no chest pain but she has some coughing also last night she had more severe right lower quadrant abdominal pain ongoing is a still be ordered CT of the abdomen and pelvis with oral contrast only and showing possible bibasilar pneumonia and diffuse inflammation of the colon which could be ischemic/inflammatory. This morning her abdominal pain was mild again but she still has ongoing use a stool which she stated that his could be chronic and that is her normal however we started the patient on Zosyn on because she is immunocompromised we are going to ask for infectious disease consult. And because it is diffuse colitis also last surgeon to evaluate the patient although it looks like her abdominal pain is mild currently. Cardiology team actually cleared her for discharge on dual antiplatelet therapy and metoprolol, currently she is on aspirin and Plavix and metoprolol 25 mg twice a day. We will repeat labs tomorrow morning Repeat COVID-19 test is pending and C. diff tests is pending as well Objective - Vital Signs Vital signs: Vital Signs Temp 98 F 08/19/21 08:45 Pulse 83 08/19/21 08:45 Resp 20 08/19/21 08:45 BP 135/64 08/19/21 08:45 Pulse Ox 100 08/19/21 08:45 Intake & Output 08/18/21 08/19/21 08/19/21 18:59 06:59 18:59 Intake Total 100 200 Output Total 2500 Balance -2400 200 Intake: Oral 100 200 Output: Hemodialysis 2500 Other: # Voids 0 - Exam GENERAL: The patient is alert and oriented x3, not in any acute distress. Well developed, well nourished. HEENT: Pupils are round and equally reacting to light. EOMI. No scleral icterus. No conjunctival pallor. Normocephalic, atraumatic. No pharyngeal erythema. No thyromegaly. CARDIOVASCULAR: S1 and S2 present. No murmurs, rubs, or gallops. PULMONARY: Chest is clear to auscultation, no wheezing or crackles. ABDOMEN: Soft, nontender, nondistended, normoactive bowel sounds. No palpable organomegaly. MUSCULOSKELETAL: No joint swelling or deformity. EXTREMITIES: No cyanosis, clubbing, or pedal edema. NEUROLOGICAL: Gross neurological examination did not reveal any focal deficits. SKIN: No rashes. no petechiae. - Labs CBC & Chem 7: 08/18/21 08:38 08/18/21 08:38 Assessment and Plan Assessment: non-STEMI, status post PCI to the left circumflex and LAD. Improved and cardiology cleared the patient for discharge Bibasilar groundglass pneumonia suspicious for COVID-19 pneumonia test was negative. Diffuse colitis End-stage renal disease on hemodialysis pt is a Taoist Diabetes mellitus Diabetic nephropathy and neuropathy History of GERD Hypertension Hyperlipidemia anemia of chronic disease Plan: This is a pleasant 89 years old female who presents with chest pain and elevated troponin Cardiology consult. They cleared patient for discharge Continue with Zosyn and consult infectious disease team for colitis and pneumonia. Follow-up repeat call the test, follow-up C. diff test Also consult surgery team for pancolitis nephrology team for hemodialysis Labs and medication were reviewed.. Continue same treatment. Continue with symptomatic treatment. Resume home medication. Monitor lytes and vitals. DVT and GI prophylaxis. Further recommendations depends on the clinical course of the patient DVT prophylaxis: heparin GI Prophylaxis: Pepcid Prognosis is guarded
--- NOTE | 2021-08-19 21:26 | P.CONS ---
History of Present Illness - Reason for Consult Consult date: 08/19/21 pneumonia and colitis Requesting physician: Timbo E Jayson - Chief Complaint chest pain x few days - History of Present Illness History of present illness : Patient is a 46-year-old female presenting to the ER 3 days ago for evaluation of achy throbbing chest pain and right flank pain symptoms have been going on for about 4 days before presentation to hospital patient did have nausea and vomited times once no fever no chills no cough. The patient did have similar symptoms in the past secondary UTI and ovarian cyst with the symptoms the patient was evaluated by ER physician on arrival to the ER the patient was afebrile and alveolar hemorrhage coronary subsequently patient had did have a normal white count on admission repeat was 12.4 yesterday not repeated today she did have elevated BUN and creatinine levels and has been normal COVID testing was negative patient did have a chest x-ray interstitial prominence specially in the mid and lower lungs patient also have a CT of abdominal pelvis completed this morning diffuse groundglass densities in the lung bases raising question of pneumonia question COVID- pneumonia diffuse colonic wall thickening consistent with colitis patient is currently being treated with Zosyn infectious he was consulted because of abnormal CT findings in this patient currently do not have significant respiratory symptoms Review of system: CONSTITUTIONAL: Positive for weakness denies high-grade fever. EYES: No complaint. ENT: No complaint. RESPIRATORY: As per history of present illness CARDIOVASCULAR: As per history of present illness. GENITOURINARY: No complaint. GASTROINTESTINAL: As per history of present illness. MUSCULOSKELETAL: No complaint. INTEGUMENTARY: No complaint. PSYCHOLOGIC: No complaint. ENDOCRINE: No complaint. NEUROLOGIC: No complaint. Past medical history : Reviewed, documented below Past surgical history : Reviewed, documented below Social history: Reviewed, documented below Medications: Reviewed, as documented below EXAMINATION: Vital sigans= Reviewed and documented below GENERAL DESCRIPTION: Middle-aged female lying in bed, no distress. No tachypnea or accessory muscle of respiration use. HEENT: Shows Pallor , no scleral icterus. Oral mucous membrane is dry. NECK: Trachea central, no thyromegaly. LUNGS: Unlabored breathing. Decreased present at the base. No wheeze or cr ackle. HEART: S1, S2, regular rate and rhythm. ABDOMEN: Soft, left lower quadrant tenderness , no guarding or rigidity EXTREMITIES: No edema of feet. SKIN: No rash, no masses palpable. NEUROLOGICAL: The patient is awake, alert, oriented x3, mood and affect normal. LABS AND RADIOLOGY: Reviewed results see below Assessment : Patient is a 46 female presented to hospital with multiple symptoms including chest pain and lower abdominal pain this patient did have abnormal CT is of the possibility of colitis with a question of infectious versus noninfectious colitis patient did not have any fever during this admission with initially normal vital diabetes elevated Infectious etiology natural excluded clinically not behaving as pneumonia Plan: 1-we will wait for the stool for C. difficile finalized check a stool culture 2-check a CRP and a procalcitonin level 3-continue empiric Zosyn at this point We will follow on clinical condition and cultures to further adjust medication if needed Thank you for this consultation we will follow the patient along with you Past Medical History Past Medical History: Heart Failure, Diabetes Mellitus, Dialysis, GERD/Reflux, Hyperlipidemia, Hypertension, Renal Disease Additional Past Medical History / Comment(s): End stage RENAL FAILURE WITH CURRENT HEMODIALYSIS @ home. Hx of respiratory failure due to sepsis and was vented once, Hx of IDDM type II, diabetic neuropathy bilateral feet, hx. of anemia, hiatal hernia, [id number].Migraines. History of Any Multi-Drug Resistant Organisms: None Reported Past Surgical History: Bowel Resection, Breast Surgery, Cholecystectomy, Hernia Repair Additional Past Surgical History / Comment(s): R breast biopsy X 2 both benign, breast reduction, akosua cataracts removed HAS HAD 2 PERITONEAL DIALYSIS CATHETERS, AND 5 HEMODIALYSIS CATHETHERS, umbilical hernia repair with ischemic bowel within-small resection, colonoscopy/EGD. Removed L Ovary. Graft R arm. Past Anesthesia/Blood Transfusion Reactions: Motion Sickness, Postoperative Nausea & Vomiting (PONV) Additional Past Anesthesia/Blood Transfusion Reaction / Comm: no blood products- pt is a Adventist Past Psychological History: No Psychological Hx Reported Smoking Status: Never smoker Past Alcohol Use History: Occasional Past Drug Use History: None Reported - Past Family History Mother Family Medical History: Osteoarthritis (OA) Additional Family Medical History / Comment(s): . Father Family Medical History: Cancer Additional Family Medical History / Comment(s): Father of LIVER cancer at age 61 yrs. Medications and Allergies Home Medications Medication Instructions Recorded Confirmed Type Magnebind 300 2 tab PO TID-W/MEALS 03/17/19 08/16/21 History rOPINIRole HCL [Requip] 1 mg PO BID 03/17/19 08/16/21 History Gabapentin [Neurontin] 100 mg PO QID 07/16/21 08/16/21 History Calcium Acetate [Phoslo] 667 mg PO TID-W/MEALS 08/16/21 08/16/21 History Cinacalcet HCl [Sensipar] 90 mg PO W/SUPPER 08/16/21 08/16/21 History Ergocalciferol (Vitamin D2) 1,250 mcg PO MO 08/16/21 08/16/21 History [Drisdol (50,000 Iu)] Lidocaine-Prilocaine Cream [Emla 1 applic TOPICAL DAILY PRN 08/16/21 08/16/21 History Cream 2.5%/2.5%] Magnebind 300 1 tab PO DAILY PRN 08/16/21 08/16/21 History Omeprazole 20 mg PO DAILY 08/16/21 08/16/21 History calcitrioL [Calcitriol] 1 mcg PO DAILY 08/16/21 08/16/21 History lisinopriL [Zestril] 5 mg PO DAILY PRN 08/16/21 08/16/21 History rOPINIRole HCL [Requip] 0.25 mg PO BID 08/16/21 08/16/21 History Allergies Allergy/AdvReac Type Severity Reaction Status Date / Time No Known Allergies Allergy Verified 08/16/21 16:04 Physical Exam Vitals: Vital Signs Temp Pulse Pulse Resp BP Pulse Ox 08/19/21 11:52 97.9 F 83 20 134/74 100 08/19/21 08:45 98 F 83 20 135/64 100 08/19/21 04:00 98.3 F 86 18 122/65 100 08/19/21 00:00 88 16 129/69 100 08/18/21 20:46 98.6 F 93 18 104/61 96 08/18/21 17:08 97.4 F L 91 18 136/86 08/18/21 16:32 98.1 F 91 20 136/81 98 Intake and Output 08/18/21 08/19/21 08/19/21 22:59 06:59 14:59 Intake Total 200 Output Total 2500 Balance -2500 200 Intake: Oral 200 Output: Hemodialysis 2500 Other: # Voids 0 Results CBC & Chem 7: 08/18/21 08:38 08/18/21 08:38
[2021-08-20] MEDS: NITROGLYCERIN OINT 1 INCH/GM PACKET TOPICAL SCH ×4 (00:12→17:15)
[2021-08-20] MEDS: ACETAMINOPHEN TAB 325 MG TAB PO PRN (02:30)
[2021-08-20] MEDS: CALCIUM ACETATE 667 MG TAB PO SCH ×3 (06:19→17:14)
[2021-08-20] MEDS ORDERED: ERGOCALCIFEROL 1,250 MCG (50,000 IU) CAPSULE PO SCH (09:00)
[2021-08-20] MEDS: PIPERACILLIN-TAZOBACTAM 3.375 GM in SODIUM CHLORIDE 0.9% 100 ML IVPB SCH ×2 (10:10→20:03)
[2021-08-20] MEDS: ATORVASTATIN 80 MG TAB PO SCH (10:11)
[2021-08-20] MEDS: GABAPENTIN 100 MG CAP PO SCH ×4 (10:11→20:02)
[2021-08-20] MEDS: PANTOPRAZOLE 40 MG TABLET PO SCH (10:11)
[2021-08-20] MEDS: ASPIRIN 81 MG PO SCH (10:12)
[2021-08-20] MEDS: CHOLESTYRAMINE (WITH SUGAR) 4 GM PACKET PO SCH ×2 (10:12→17:14)
[2021-08-20] MEDS: MAGNEBIND PO SCH ×3 (10:12→17:15)
[2021-08-20] MEDS: METOPROLOL TARTRATE 25 MG TAB PO SCH ×2 (10:12→23:06)
[2021-08-20] MEDS: CLOPIDOGREL 75 MG TAB PO SCH (10:12)
[2021-08-20] MEDS ORDERED: LIDOCAINE-PRILOCAINE 2.5-2.5% CREAM 5 GM TUBE TOPICAL STA (10:38)
--- NOTE | 2021-08-20 11:43 | P.PN ---
Subjective Patient is seen in follow-up for end-stage renal disease. She is maintained on home hemodialysis. Resting in bed. Denies chest pain or shortness of breath. No vomiting or diarrhea. Vital signs are stable. General: The patient appeared well nourished and normally developed. HEENT: Head exam is unremarkable. LUNGS: Breath sounds decreased. HEART: Rate and Rhythm are regular. ABDOMEN: Soft, no distention. EXTREMITITES: No edema. Objective - Vital Signs Vital signs: Vital Signs Temp 98 F 08/20/21 09:00 Pulse 76 08/20/21 09:00 Resp 18 08/20/21 09:00 BP 135/64 08/20/21 09:00 Pulse Ox 100 08/20/21 09:00 Intake & Output 08/19/21 08/20/21 08/20/21 18:59 06:59 18:59 Intake Total 300 250 Balance 300 250 Intake: Intake, IV Titration 100 Amount Piperacillin-Tazobactam 3 100 .375 gm In Sodium Chloride 0.9% 100 ml @ 25 mls/hr IVPB Q12HR [facility] Rx #:[id number] Oral 200 250 - Labs CBC & Chem 7: 08/18/21 08:38 08/18/21 08:38 Labs: Microbiology - Last 24 Hours (Table) 08/20/21 02:30 Stool Culture - Preliminary Stool Assessment and Plan Plan: Assessment: 1. End-stage renal disease maintained on home hemodialysis. 2. Coronary artery disease status post catheterization with 2 stents placed this admission. 3. Diarrhea due to colitis. On Questran. C. diff negative. 4. Chronic kidney disease mineral bone disease maintained on Sensipar, calcitriol and PhosLo. 5. Anemia of chronic kidney disease maintained on Aranesp. Plan: Hemodialysis today.
--- NOTE | 2021-08-20 12:22 | P.GSCN ---
<Shanice Davis - Last Filed: 08/20/21 12:21> History of Present Illness Consult date: 08/20/21 History of present illness: CHIEF COMPLAINT: Chest pain and right side pain HISTORY OF PRESENT ILLNESS: This is a 46-year-old female who presented with chest pressure and right-sided abdominal pain. She was found have evidence of a non-ST elevated WY and underwent cardiac cath with 2 stents placed. However, even with improvement of the chest pain patient continues to have right-sided abdominal pain. She reports that the right-sided pain that started 5 days ago. She reports that pain was what actually brought her in when they found that she had had a WY. She is been having diarrhea. She reports about 6 episodes of diarrhea within the last 24 hours. She reports she did have sharp right lower quadrant pain last night. This appears to have improved. She's had no further episodes of diarrhea today. She is able to tolerate diet. Otherwise up until this morning she had been having poor oral intake. She denies any nausea or vomiting. Denies any fever, chills or sweats. She reports her last colonoscopy was on July 17 and had shown mild diverticulitis. She's had EGDs in the past as well. Patient denies any history of colitis. She reports that her pain is better today. Computed tomography scan of abdomen and pelvis has shown diffuse colonic wall thickening consistent with colitis. No intra-abdominal abscess, mesenteric inflammation or free intraperitoneal or fluid. Patient has been placed on antibiotics and Questran. She's also being seen by infectious disease. Patient has had prior small bowel resection and repair of incisional hernia, lysis of adhesions due to small bowel obstruction from incisional hernia and adhesions 2017. Also diagnosed with frozen abdome at that time. In 2016 had laparoscopic repair of incarcerated incisional hernia with small bowel resection. Patient does report having issues with chronic diarrhea. She does have end-stage renal disease and maintained on hemodialysis. Patient is currently on aspirin and Plavix. PAST MEDICAL HISTORY: See list. PAST SURGICAL HISTORY: See list. MEDICATIONS: See list. ALLERGIES: See list. SOCIAL HISTORY: No illicit drug use. REVIEW OF SYSTEMS: CONSTITUTIONAL: Denies fever or chills. HEENT: Denies blurred vision, vision changes, or eye pain. Denies hemoptysis CARDIOVASCULAR: Denies chest pain or pressure. RESPIRATORY: No shortness of breath. GASTROINTESTINAL: See HPI for pertinent findings HEMATOLOGIC: Denies bleeding disorders. GENITOURINARY: Denies any blood in urine or increased urinary frequency. SKIN: Denies pruitis. Denies rash. PHYSICAL EXAM: VITAL SIGNS: Reviewed GENERAL: Well-developed in no acute distress. HEENT: No sclera icterus. Extraocular movements grossly intact. Moist buccal mucosa. Head is atraumatic, normocephalic. No nasal drainage. ABDOMEN: Soft. Nondistended and nontender NEUROLOGIC: Alert and oriented. Cranial nerves II through XII grossly intact. LABORATORY DATA: WBC elevated yesterday at home 0.4 hemoglobin 7.6 Sodium 135 potassium 3.4 creatinine 5.91 Stool for C. diff negative COVID-19 not detected IMAGING: Computed tomography scan abdomen and pelvis diffuse ground glass densities in the lung bases raising the question of pneumonia/Covid pneumonia. Diffuse colonic wall thickening consistent with colitis. No intra-abdominal abscess, mesenteric inflammation, free intraperitoneal air or fluid. Diffuse arteriova scular calcifications ASSESSMENT: 1. Right lower abdominal pain and diarrhea with evidence of colitis on CAT scan 2. Admitted with a non-ST elevated WY status post 2 cardiac stents 3. Previous abdominal surgeries 4. End-stage renal disease maintained on hemodialysis PLAN: -Further recommendations forthcoming per surgeon -Continue antibiotics -Continue Questran -Continue supportive care -Follow up on today's labs Thank you for this consultation Physician Orthopedic Brace Maker note has been reviewed by physician. Signing provider agrees with the documented findings, assessment, and plan of care. Past Medical History Past Medical History: Heart Failure, Diabetes Mellitus, Dialysis, GERD/Reflux, Hyperlipidemia, Hypertension, Renal Disease Additional Past Medical History / Comment(s): End stage RENAL FAILURE WITH CURRENT HEMODIALYSIS @ home. Hx of respiratory failure due to sepsis and was vented once, Hx of IDDM type II, diabetic neuropathy bilateral feet, hx. of anemia, hiatal hernia, [id number].Migraines. History of Any Multi-Drug Resistant Organisms: None Reported Past Surgical History: Bowel Resection, Breast Surgery, Cholecystectomy, Hernia Repair Additional Past Surgical History / Comment(s): R breast biopsy X 2 both benign, breast reduction, akosua cataracts removed HAS HAD 2 PERITONEAL DIALYSIS CATHETERS, AND 5 HEMODIALYSIS CATHETHERS, umbilical hernia repair with ischemic bowel within-small resection, colonoscopy/EGD. Removed L Ovary. Graft R arm. Past Anesthesia/Blood Transfusion Reactions: Motion Sickness, Postoperative Nausea & Vomiting (PONV) Additional Past Anesthesia/Blood Transfusion Reaction / Comm: no blood products- pt is a Orthodox Past Psychological History: No Psychological Hx Reported Smoking Status: Never smoker Past Alcohol Use History: Occasional Past Drug Use History: None Reported - Past Family History Mother Family Medical History: Osteoarthritis (OA) Additional Family Medical History / Comment(s): . Father Family Medical History: Cancer Additional Family Medical History / Comment(s): Father of LIVER cancer at age 61 yrs. Medications and Allergies Home Medications Medication Instructions Recorded Confirmed Type Magnebind 300 2 tab PO TID-W/MEALS 03/17/19 08/16/21 History rOPINIRole HCL [Requip] 1 mg PO BID 03/17/19 08/16/21 History Gabapentin [Neurontin] 100 mg PO QID 07/16/21 08/16/21 History Calcium Acetate [Phoslo] 667 mg PO TID-W/MEALS 08/16/21 08/16/21 History Cinacalcet HCl [Sensipar] 90 mg PO W/SUPPER 08/16/21 08/16/21 History Ergocalciferol (Vitamin D2) 1,250 mcg PO MO 08/16/21 08/16/21 History [Drisdol (50,000 Iu)] Lidocaine-Prilocaine Cream [Emla 1 applic TOPICAL DAILY PRN 08/16/21 08/16/21 History Cream 2.5%/2.5%] Magnebind 300 1 tab PO DAILY PRN 08/16/21 08/16/21 History Omeprazole 20 mg PO DAILY 08/16/21 08/16/21 History calcitrioL [Calcitriol] 1 mcg PO DAILY 08/16/21 08/16/21 History lisinopriL [Zestril] 5 mg PO DAILY PRN 08/16/21 08/16/21 History rOPINIRole HCL [Requip] 0.25 mg PO BID 08/16/21 08/16/21 History Aspirin 81 mg PO DAILY 30 Days #30 tab 08/20/21 Rx Atorvastatin [Lipitor] 80 mg PO DAILY 30 Days #30 tab 08/20/21 Rx Clopidogrel [Plavix] 75 mg PO DAILY 30 Days #30 tab 08/20/21 Rx Metoprolol Tartrate [Lopressor] 25 mg PO BID 30 Days #60 tab 08/20/21 Rx Nitroglycerin Sl Tabs [Nitrostat] 0.4 mg SUBLINGUAL Q5M PRN #25 tab 08/20/21 Rx Allergies Allergy/AdvReac Type Severity Reaction Status Date / Time No Known Allergies Allergy Verified 08/16/21 16:04 Surgical - Exam Vital Signs Temp Pulse Resp BP Pulse Ox 98.0 F 87 16 146/78 99 08/16/21 14:08 08/16/21 14:08 08/16/21 14:08 08/16/21 14:08 08/16/21 14:08 Results - Labs 08/18/21 08:38 08/18/21 08:38 Microbiology - Last 24 Hours (Table) 08/20/21 02:30 Stool Culture - Preliminary Stool <Gerson Aguilar - Last Filed: 08/20/21 17:27> History of Present Illness History of present illness: I have personally seen and examined the patient, reviewed the WOOD BUFFER /PAs history, exam and MDM and agree with the assessment and plan as written. Based on total visit time, I have performed more than 50% of the visit. As above. Patient with complaints of frequent loose stools at home. Recent upper endoscopy showed no gross abnormalities consistent with colitis however biopsies were not taken. Continue diet as tolerated. Continue Questran and Imodium. May require repeat colonoscopy with biopsies but would hold off unless this persists post discharge. Surgical - Exam Vital Signs Temp Pulse Resp BP Pulse Ox 98.0 F 87 16 146/78 99 08/16/21 14:08 08/16/21 14:08 08/16/21 14:08 08/16/21 14:08 08/16/21 14:08 Results - Labs 08/20/21 12:35 08/20/21 12:35 Abnormal Lab Results - Last 24 Hours (Table) 08/20/21 08/20/21 Range/Units 12:35 12:35 RBC 2.92 L (3.80-5.40) m/uL Hgb 7.4 L (11.4-16.0) gm/dL Hct 25.5 L (34.0-46.0) % MCHC 29.0 L (31.0-37.0) g/dL RDW 18.3 H (11.5-15.5) % Sodium 134 L (137-145) mmol/L Carbon Dioxide 21 L (22-30) mmol/L BUN 28 H (7-17) mg/dL Creatinine 6.90 H (0.52-1.04) mg/dL Glucose 134 H (74-99) mg/dL Calcium 7.2 L (8.4-10.2) mg/dL C-Reactive Protein 18.8 H (<1.0) mg/dL Microbiology - Last 24 Hours (Table) 08/20/21 02:30 Stool Culture - Preliminary Stool Diabetes panel 08/20/21 Range/Units 12:35 Sodium 134 L (137-145) mmol/L Potassium 3.6 (3.5-5.1) mmol/L Chloride 101 (98-107) mmol/L Carbon Dioxide 21 L (22-30) mmol/L BUN 28 H (7-17) mg/dL Creatinine 6.90 H (0.52-1.04) mg/dL Glucose 134 H (74-99) mg/dL Calcium 7.2 L (8.4-10.2) mg/dL Calcium panel 08/20/21 Range/Units 12:35 Calcium 7.2 L (8.4-10.2) mg/dL Pituitary panel 08/20/21 Range/Units 12:35 Sodium 134 L (137-145) mmol/L Potassium 3.6 (3.5-5.1) mmol/L Chloride 101 (98-107) mmol/L Carbon Dioxide 21 L (22-30) mmol/L BUN 28 H (7-17) mg/dL Creatinine 6.90 H (0.52-1.04) mg/dL Glucose 134 H (74-99) mg/dL Calcium 7.2 L (8.4-10.2) mg/dL Adrenal panel 08/20/21 Range/Units 12:35 Sodium 134 L (137-145) mmol/L Potassium 3.6 (3.5-5.1) mmol/L Chloride 101 (98-107) mmol/L Carbon Dioxide 21 L (22-30) mmol/L BUN 28 H (7-17) mg/dL Creatinine 6.90 H (0.52-1.04) mg/dL Glucose 134 H (74-99) mg/dL Calcium 7.2 L (8.4-10.2) mg/dL
[2021-08-20 12:54] LABS: Anisocytosis Slight; Basophils # (A) 0.1 k/uL (0-0.2); Basophils % (A) 1 %; Eosinophils # (A) 0.3 k/uL (0-0.7); Eosinophils % (A) 5 %; HCT 25.5 % (34.0-46.0); HGB 7.4 gm/dL (11.4-16.0); Hypochromasia Marked; Lymphocytes # (A) 1.1 k/uL (1.0-4.8); Lymphocytes % (A) 19 %; MCH 25.4 pg (25.0-35.0); MCV 87.3 fL (80.0-100.0); Mean Platelet Volume 8.2; Monocytes # (A) 0.4 k/uL (0-1.0); Monocytes % (A) 7 %; Neutrophils # (A) 3.9 k/uL (1.3-7.7); Neutrophils % (A) 66 %; Platelet Count 277 k/uL (150-450); RBC 2.92 m/uL (3.80-5.40); RDW 18.3 % (11.5-15.5); WBC 5.9 k/uL (3.8-10.6)
[2021-08-20 13:12] LABS: Calcium 7.2 mg/dL (8.4-10.2); Potassium 3.6 mmol/L (3.5-5.1)
[2021-08-20 13:32] LABS: C Reactive Protein 18.8 mg/dL (<1.0)
--- NOTE | 2021-08-20 14:35 | P.PN ---
Subjective This is a pleasant 46-year-old female past medical history significant for type 2 diabetes, hypertension, dyslipidemia, end-stage renal disease on hemodialysis plans for evaluation for renal transplant at [facility] with Dr. Garcia. She follows with Dr. Bauer in the office. We have been asked to see in consultation for chest pain. Patient diagnosed with NSTEMI. Patient underwent cardiac catheterization with Dr. Schaeffer on 08/17 and underwent stenting to the mid LAD and proximal left circumflex. Echocardiogram revealed an EF of 6065 percent, basal inferior LV wall hypokinetic Patient is at bedside, no acute distress. She denies any chest pain or shortness of breath. She has been staying in the hospital for abdominal pain and diarrhea. CT scan revealed diffuse ground glass densities in the lung bases raising the question of pneumonia/Covid pneumonia. Diffuse colonic wall thickening consistent with colitis. No intra-abdominal abscess, mesenteric inflammation, free intraperitoneal air or fluid. Diffuse arteriovascular ca lcifications Vitals reviewed GENERAL: Well-appearing, well-nourished and in no acute distress. NECK: Supple without JVD or thyromegaly. LUNGS: Breath sounds clear to auscultation bilaterally. Respiration equal and unlabored. No wheezes, rales or rhonchi. HEART: Regular rate and rhythm Systolic ejection mumur noted EXTREMITIES: Normal range of motion, no edema. No clubbing or cyanosis. Peripheral pulses intact. Right fem site clean dry intact no hematoma ASSESSMENT NSTEMI s/p PCI to mid LAD and proximal left circumflex on 08/17/20 Type 2 Diabetes End stage renal disease on hemodialysis Dyslipidemia Diarrhea with evidence of colitis on CAT scan PLAN From a cardiology perspective, patient is stable on current medication regimen. Ok to discharge when clearance from primary and other consultants. Patient will follow up with Dr. Bauer in the office on 08/24/21 Objective - Vital Signs Vital signs: Vital Signs Temp 98 F 08/20/21 09:00 Pulse 76 08/20/21 09:00 Resp 18 08/20/21 09:00 BP 135/64 08/20/21 09:00 Pulse Ox 100 08/20/21 09:00 Intake & Output 08/19/21 08/20/21 08/20/21 18:59 06:59 18:59 Intake Total 300 250 100 Balance 300 250 100 Intake: Intake, IV Titration 100 100 Amount Piperacillin-Tazobactam 3 100 100 .375 gm In Sodium Chloride 0.9% 100 ml @ 25 mls/hr IVPB Q12HR [facility] Rx #:[id number] Oral 200 250 - Labs CBC & Chem 7: 08/20/21 12:35 08/20/21 12:35 Labs: Abnormal Lab Results - Last 24 Hours (Table) 08/20/21 08/20/21 Range/Units 12:35 12:35 RBC 2.92 L (3.80-5.40) m/uL Hgb 7.4 L (11.4-16.0) gm/dL Hct 25.5 L (34.0-46.0) % MCHC 29.0 L (31.0-37.0) g/dL RDW 18.3 H (11.5-15.5) % Sodium 134 L (137-145) mmol/L Carbon Dioxide 21 L (22-30) mmol/L BUN 28 H (7-17) mg/dL Creatinine 6.90 H (0.52-1.04) mg/dL Glucose 134 H (74-99) mg/dL Calcium 7.2 L (8.4-10.2) mg/dL C-Reactive Protein 18.8 H (<1.0) mg/dL Microbiology - Last 24 Hours (Table) 08/20/21 02:30 Stool Culture - Preliminary Stool
[2021-08-20] MEDS: CINACALCET 30 MG TAB PO SCH (17:21)
[2021-08-20] MEDS: HYDROcodone/APAP 5-325MG 1 EACH TAB PO PRN (18:15)
[2021-08-20] MEDS: MIDODRINE 5 MG TAB PO PRN (20:02)
[2021-08-20] MEDS: ZOLPIDEM 5 MG TAB PO PRN (20:03)
[2021-08-21] MEDS: NITROGLYCERIN OINT 1 INCH/GM PACKET TOPICAL SCH ×2 (01:18→06:19)
[2021-08-21] MEDS: HYDROcodone/APAP 5-325MG 1 EACH TAB PO PRN (01:35)
[2021-08-21] MEDS: CALCIUM ACETATE 667 MG TAB PO SCH ×3 (06:24→17:59)
[2021-08-21] MEDS: PANTOPRAZOLE 40 MG TABLET PO SCH (09:52)
[2021-08-21] MEDS: METOPROLOL TARTRATE 25 MG TAB PO SCH ×2 (09:52→20:58)
[2021-08-21] MEDS: PIPERACILLIN-TAZOBACTAM 3.375 GM in SODIUM CHLORIDE 0.9% 100 ML IVPB SCH ×2 (09:52→20:58)
[2021-08-21] MEDS: ASPIRIN 81 MG PO SCH (09:52)
[2021-08-21] MEDS: CLOPIDOGREL 75 MG TAB PO SCH (09:53)
[2021-08-21] MEDS: ATORVASTATIN 80 MG TAB PO SCH (09:53)
[2021-08-21] MEDS: CHOLESTYRAMINE (WITH SUGAR) 4 GM PACKET PO SCH ×2 (09:53→17:59)
[2021-08-21] MEDS: GABAPENTIN 100 MG CAP PO SCH ×4 (09:54→20:57)
[2021-08-21] MEDS: MAGNEBIND PO SCH ×3 (09:58→18:00)
--- NOTE | 2021-08-21 12:07 | P.PN ---
<Bernarda Mcadams - Last Filed: 08/21/21 12:00> Subjective Progress Note Date: 08/21/21 CHIEF COMPLAINT: Chest pain and right-sided pain HISTORY OF PRESENT ILLNESS: 46-year-old female who is seen as a follow-up for consultation of right-sided abdominal pain. Today she states that abdominal pain has improved. She is eating a regular diet. She continues to have diarrhea and states that she had 3 episodes through the evening and one this morning. She denies any bloody stool or black stool. No nausea or vomiting. She recently underwent a colonoscopy on July 17 that had showed mild divert iculosis. She has had a history of chronic diarrhea for many years and has seen Dr. Francois in the past. She's had previous EGDs and colonoscopies. She takes Imodium at home as needed when she gets increased diarrhea. Computed tomography scan of the abdomen and pelvis showed diffuse colonic wall thickening consistent with colitis. No intra-abdominal abscess mesenteric inflammation or free intr aperitoneal fluid. She's been started on antibiotics and Questran. PHYSICAL EXAM: VITAL SIGNS: Reviewed. GENERAL: Well-developed in no acute distress. HEENT: No sclera icterus. Extraocular movements grossly intact. Moist buccal mucosa. Head is atraumatic, normocephalic. ABDOMEN: Soft. Nondistended. Nontender. NEUROLOGIC: Alert and oriented. Cranial nerves II through XII grossly intact. ASSESSMENT: 1. Right lower abdominal pain and diarrhea with evidence of colitis on CAT scan 2. Admitted with a non-ST elevated [place] status post 2 cardiac stents 3. Previous abdominal surgeries 4. End-stage renal disease maintained on hemodialysis PLAN: -Stool culture pending -Continue antibiotics -Continue Questran and Imodium as needed -Continue supportive care -Possible repeat colonoscopy with biopsies, this can be done as an outpatient The impression and plan of care has been dictated as directed. Dr. Aguilar I performed a history and examination of this patient, discussed the same with the dictator. I agree with the dictator's note ,documented as a scribe. Any additional findings or plans will be noted. Objective - Vital Signs Vital signs: Vital Signs Temp 97.8 F 08/21/21 04:00 Pulse 79 08/21/21 04:00 Resp 18 08/21/21 04:00 BP 99/56 08/21/21 04:00 Pulse Ox 100 01/18/22 09:11 Intake & Output 08/20/21 08/21/21 08/21/21 18:59 06:59 18:59 Intake Total 400 240 Output Total 2200 Balance -1800 240 Weight 60.9 kg Intake: Intake, IV Titration 100 Amount Piperacillin-Tazobactam 3 100 .375 gm In Sodium Chloride 0.9% 100 ml @ 25 mls/hr IVPB Q12HR [facility] Rx #:[id number] Oral 240 Hemodialysis 300 Output: Hemodialysis 2200 Other: # Voids 3 # Bowel Movements 1 - Labs CBC & Chem 7: 08/20/21 12:35 08/20/21 12:35 Labs: Abnormal Lab Results - Last 24 Hours (Table) 08/20/21 08/20/21 08/20/21 Range/Units 12:35 12:35 12:35 RBC 2.92 L (3.80-5.40) m/uL Hgb 7.4 L (11.4-16.0) gm/dL Hct 25.5 L (34.0-46.0) % MCHC 29.0 L (31.0-37.0) g/dL RDW 18.3 H (11.5-15.5) % Sodium 134 L (137-145) mmol/L Carbon Dioxide 21 L (22-30) mmol/L BUN 28 H (7-17) mg/dL Creatinine 6.90 H (0.52-1.04) mg/dL Glucose 134 H (74-99) mg/dL Calcium 7.2 L (8.4-10.2) mg/dL C-Reactive Protein 18.8 H (<1.0) mg/dL Procalcitonin 1.62 H (0.02-0.09) ng/mL Microbiology - Last 24 Hours (Table) 08/20/21 02:30 Stool Culture - Preliminary Stool <Gerson Aguilar - Last Filed: 08/21/21 16:33> Subjective As above. Patient says her diarrhea has improved somewhat. Denies pain. Continue diet as tolerated. We'll sign off. Follow-up as outpatient if diarrhea persists. Objective - Vital Signs Vital signs: Vital Signs Temp 97.9 F 08/21/21 12:00 Pulse 79 08/21/21 12:18 Resp 18 08/21/21 12:00 BP 79/52 08/21/21 12:22 Pulse Ox 99 08/21/21 12:00 Intake & Output 08/20/21 08/21/21 08/21/21 18:59 06:59 18:59 Intake Total 400 580 Output Total 2200 Balance -1800 580 Weight 60.9 kg Intake: Intake, IV Titration 100 100 Amount Piperacillin-Tazobactam 3 100 100 .375 gm In Sodium Chloride 0.9% 100 ml @ 25 mls/hr IVPB Q12HR [facility] Rx #:[id number] Oral 480 Hemodialysis 300 Output: Hemodialysis 2200 Other: # Voids 3 1 # Bowel Movements 1 - Labs CBC & Chem 7: 08/20/21 12:35 08/20/21 12:35 Labs: Abnormal Lab Results - Last 24 Hours (Table) 08/20/21 Range/Units 12:35 Procalcitonin 1.62 H (0.02-0.09) ng/mL
[2021-08-21] MEDS: MIDODRINE 5 MG TAB PO PRN (12:19)
--- NOTE | 2021-08-21 12:19 | P.PN ---
Subjective Patient is seen in follow-up for end-stage renal disease. She is maintained on home hemodialysis. Resting in bed. Denies chest pain or shortness of breath. No vomiting or diarrhea. Tolerated 2.2 L O2 saturation yesterday. Noted to be orthostatic yesterday. Vital signs are stable. General: The patient appeared well nourished and normally developed. HEENT: Head exam is unremarkable. LUNGS: Breath sounds decreased. HEART: Rate and Rhythm are regular. ABDOMEN: Soft, no distention. EXTREMITITES: No edema. Objective - Vital Signs Vital signs: Vital Signs Temp 97.9 F 08/21/21 12:00 Pulse 78 08/21/21 12:00 Resp 18 08/21/21 12:00 BP 111/63 08/21/21 12:00 Pulse Ox 99 08/21/21 12:00 Intake & Output 08/20/21 08/21/21 08/21/21 18:59 06:59 18:59 Intake Total 400 240 Output Total 2200 Balance -1800 240 Weight 60.9 kg Intake: Intake, IV Titration 100 Amount Piperacillin-Tazobactam 3 100 .375 gm In Sodium Chloride 0.9% 100 ml @ 25 mls/hr IVPB Q12HR [facility] Rx #:[id number] Oral 240 Hemodialysis 300 Output: Hemodialysis 2200 Other: # Voids 3 # Bowel Movements 1 - Labs CBC & Chem 7: 08/20/21 12:35 08/20/21 12:35 Labs: Abnormal Lab Results - Last 24 Hours (Table) 08/20/21 08/20/21 08/20/21 Range/Units 12:35 12:35 12:35 RBC 2.92 L (3.80-5.40) m/uL Hgb 7.4 L (11.4-16.0) gm/dL Hct 25.5 L (34.0-46.0) % MCHC 29.0 L (31.0-37.0) g/dL RDW 18.3 H (11.5-15.5) % Sodium 134 L (137-145) mmol/L Carbon Dioxide 21 L (22-30) mmol/L BUN 28 H (7-17) mg/dL Creatinine 6.90 H (0.52-1.04) mg/dL Glucose 134 H (74-99) mg/dL Calcium 7.2 L (8.4-10.2) mg/dL C-Reactive Protein 18.8 H (<1.0) mg/dL Procalcitonin 1.62 H (0.02-0.09) ng/mL Microbiology - Last 24 Hours (Table) 08/20/21 02:30 Stool Culture - Preliminary Stool Assessment and Plan Plan: Assessment: 1. End-stage renal disease maintained on home hemodialysis. 2. Coronary artery disease status post catheterization with 2 stents placed t his admission. 3. Diarrhea due to colitis. On Questran. C. diff negative. 4. Chronic kidney disease mineral bone disease maintained on Sensipar, calcitriol and PhosLo. 5. Anemia of chronic kidney disease maintained on Aranesp. 6. Orthostatic hypotension. Plan: Hemodialysis tomorrow. Blood pressure stable today. Repeat orthostatics. If positive, will add scheduled midodrine.
--- NOTE | 2021-08-21 12:59 | P.PN ---
Progress Note - Text Progress Note Date: 08/20/21 Reason for follow-up is pneumonia and colitis HPI: Patient is a 46-year-old -Q[place] female with a past medical history significant for end-stage renal disease on hemodialysis admitted to the hospital with chest pressure points and abdominal pain has been diagnosed with non-ST elevated UT and status post cardiac cath and 2 stents patient also have a CT that was suspicious for pneumonia and colitis this patient did have significant diarrhea. On today's evaluation that is 08/20/2021, the patient denies having any fever or any chills, breathing comfortably on room he denies any chest pain minimal cough abdominal pain has decreased intensity cell having diarrhea but no blood or mucus in the stools. On examination blood pressure is 111/63 pulse of 79 temperature 97.9. General description is a middle-aged Female lying in bed in no distress. Respiratory system: Unlabored breathing. Clear to auscultation anteriorly. Heart S1, S2. Regular rate and rhythm. Abdomen soft, no tenderness. LABS: Stool for C. diff is negative, culture pending DIAGNOSTIC IMPRESSION AND PLAN: Patient admitted to the hospital with chest pain and did have diarrhea in this patient did have acute non-ST elevated UT status post cardiac cath and stenting did have evidence of colitis on the CT, patient to continue with the Zosyn while waiting for the stool culture finalized
--- NOTE | 2021-08-21 13:01 | P.PN ---
Progress Note - Text Progress Note Date: 08/21/21 Reason for follow-up is pneumonia and colitis HPI: Patient is a 46-year-old -[place]ib[place] female with a past medical history significant for end-stage renal disease on hemodialysis admitted to the hospital with chest pressure points and abdominal pain has been diagnosed with non-ST elevated NE and status post cardiac cath and 2 stents patient also have a CT that was suspicious for pneumonia and colitis this patient did have significant diarrhea. On today's evaluation that is 08/21/2021, the patient remains to be afebrile, the patient is breathing comfortably on room , the patient denies any chest pain minimal cough abdominal pain has decreased intensity cell having diarrhea but no blood or mucus in the stools. On examination blood pressure is 114/60 pulse of 80 temperature 97.9. General description is a middle-aged Female lying in bed in no distress. Respiratory system: Unlabored breathing. Clear to auscultation anteriorly. Heart S1, S2. Regular rate and rhythm. Abdomen soft, no tenderness. LABS: Stool for C. diff is negative, culture pending DIAGNOSTIC IMPRESSION AND PLAN: Patient admitted to the hospital with chest pain and did have diarrhea in this patient did have acute non-ST elevated NE status post cardiac cath and stenting did have evidence of colitis on the CT, patient seemed to have clinical improvement with the Zosyn will finish therapy with the short course of oral Ceftin and Flagyl and close outpatient follow-up
--- NOTE | 2021-08-21 14:02 | P.PN ---
Subjective This is a pleasant 46-year-old female past medical history significant for type 2 diabetes, hypertension, dyslipidemia, end-stage renal disease on hemodialysis plans for evaluation for renal transplant at [facility] with Dr. Garcia. She follows with Dr. Bauer in the office. We have been asked to see in consultation for chest pain. Patient diagnosed with NSTEMI. Patient underwent cardiac catheterization with Dr. Schaeffer on 08/17 and underwent stenting to the mid LAD and proximal left circumflex. Echocardiogram revealed an EF of 6065 percent, basal inferior LV wall hypokinetic Patient is at bedside, no acute distress. She denies any chest pain or shortness of breath. She has been staying in the hospital for abdominal pain and diarrhea. CT scan revealed diffuse ground glass densities in the lung bases raising the question of pneumonia/Covid pneumonia. Diffuse colonic wall thickening consistent with colitis. No intra-abdominal abscess, mesenteric inflammation, free intraperitoneal air or fluid. Diffuse arteriovascular ca lcifications. She continues to have diarrhea. She was started on Questran and Imodium. And IV Zosyn. GI recommending colonoscopy as an outpatient. Per infectious disease she was started on Flagyl and cefuroxime for outpatient antibiotics She's currently maintained on aspirin 81 mg daily, atorvastatin 80 mg daily, Plavix 75 mg daily, lisinopril 5 mg daily, metoprolol titrate 25 mg twice a day Vitals reviewed GENERAL: Well-appearing, well-nourished and in no acute distress. NECK: Supple without JVD or thyromegaly. LUNGS: Breath sounds clear to auscultation bilaterally. Respiration equal and unlabored. No wheezes, rales or rhonchi. HEART: Regular rate and rhythm Systolic ejection mumur noted EXTREMITIES: Normal range of motion, no edema. No clubbing or cyanosis. Peripheral pulses intact. Right fem site clean dry intact no hematoma ASSESSMENT NSTEMI s/p PCI to mid LAD and proximal left circumflex on 08/17/20 Type 2 Diabetes End stage renal disease on hemodialysis Dyslipidemia Diarrhea with evidence of colitis on CAT scan PLAN From a cardiology perspective, patient is stable on current medication regimen. Ok to discharge when clearance from primary and other consultants. Patient will follow up with Dr. Bauer in the office on 08/24/21 Objective - Vital Signs Vital signs: Vital Signs Temp 97.9 F 08/21/21 12:00 Pulse 79 08/21/21 12:18 Resp 18 08/21/21 12:00 BP 79/52 08/21/21 12:22 Pulse Ox 99 08/21/21 12:00 Intake & Output 08/20/21 08/21/21 08/21/21 18:59 06:59 18:59 Intake Total 400 340 Output Total 2200 Balance -1800 340 Weight 60.9 kg Intake: Intake, IV Titration 100 100 Amount Piperacillin-Tazobactam 3 100 100 .375 gm In Sodium Chloride 0.9% 100 ml @ 25 mls/hr IVPB Q12HR [facility] Rx #:[id number] Oral 240 Hemodialysis 300 Output: Hemodialysis 2200 Other: # Voids 3 # Bowel Movements 1 - Labs CBC & Chem 7: 08/20/21 12:35 08/20/21 12:35 Labs: Abnormal Lab Results - Last 24 Hours (Table) 08/20/21 Range/Units 12:35 Procalcitonin 1.62 H (0.02-0.09) ng/mL Microbiology - Last 24 Hours (Table) 08/20/21 02:30 Stool Culture - Preliminary Stool
[2021-08-21] MEDS: CINACALCET 30 MG TAB PO SCH (17:59)
[2021-08-21] MEDS: MIDODRINE 5 MG TAB PO SCH (17:59)
--- NOTE | 2021-08-21 20:05 | P.PN ---
Subjective This is a pleasant 46 years old -Guinean female with past medical history of Heart Failure, Diabetes Mellitus, Dialysis, GERD/Reflux, Hyperl ipidemia, Hypertension, End stage RENAL FAILURE WITH CURRENT HEMODIALYSIS @ home, diabetic neuropathy bilateral feet, hiatal hernia, Migraines. no blood products-pt is a Jew Presents of one-day duration of central chest pain which gets worse throughout the day and radiating into the back, no radiation to the neck or jaw or arm. No dyspnea. No coughing. Patient has her pain as 60/10 but when I saw emergency room it was rotated down to 2/10. O'clock pressure old thrombin. Associated with a dry cough and but no dyspnea. No vomiting, she makes very little urine with no burning, no headache or weakness or numbness. No leg pain or swelling However patient states that she has some right lower abdominal pain since yesterday with some loose stool but she trips her loose stool to her irritable bowel syndrome She denies smoking or illicit drugs. She drinks COLD occasionally She is hemodynamically stable. Labs showing hemoglobin 8.1, WBC 6.1, platelets is normal. Creatinine 6.0 other than that her BMP and liver enzymes are unremarkable. Troponin elevated at 0.09. Chest x-ray: Interstitial prominence especially in the mid and lower lungs. Exclude bronchitis, asthma or atypical pneumonia KUB a couple air-fluid levels within non-dilated small bowel in the right lower quadrant could represent regional ileus or enteritis. Overall nonobstructive bowel gas pattern at this time. No free air. 08/17/2020 Patient today is having less chest pain however is not completely resolved, also she has less right lower quadrant abdominal pain. Her loose bowel movement states that her normal and its no diarrhea. No vomiting. She is nothing by margot for possible evaluation by energy project manager. No other specific complaint and she looks comfortable. She is hemodynamically stable. Her echocardiogram showed ejection fraction of 60-65% with moderate mitral regurgitation and severe pulmonary hypertension She is kept on aspirin 81 mg which is a new medication for her as well as his heparin drip. Cardiology team are planning for cardiac cath today. 08/18/2020 Maykel is a status post PCI and stenting of the proximal LAD for critical stenosis and left circumflex artery before total occlusion. Patient today is postoperative day #1, she is fully awake oriented, she has minimal discomfort in her chest, no chest pain. No abdominal pain which is also mild in her right lower quadrant, She is hemodynamically stable. Hemoglobin 7.6 from 8.1 and WBC jumped from 6 up to 12.4. Heparin drip was stopped, and patient was started on normal saline. Patient will go hemodialysis 08/19/2020 Patient with no chest pain but she has some coughing also last night she had more severe right lower quadrant abdominal pain ongoing is a still be ordered CT of the abdomen and pelvis with oral contrast only and showing possible bibasilar pneumonia and diffuse inflammation of the colon which could be ischemic/inflammatory. This morning her abdominal pain was mild again but she still has ongoing use a stool which she stated that his could be chronic and that is her normal however we started the patient on Zosyn on because she is immunocompromised we are going to ask for infectious disease consult. And because it is diffuse colitis also last surgeon to evaluate the patient although it looks like her abdominal pain is mild currently. Cardiology team actually cleared her for discharge on dual antiplatelet therapy and metoprolol, currently she is on aspirin and Plavix and metoprolol 25 mg twice a day. We will repeat labs tomorrow morning Repeat COVID-19 test is pending and C. diff tests is pending as well 08/21/2021 patient is with non-STEMI status post PCI to the circumflex and LAD. She is on aspirin Plavix and cardiology cleared her for discharge. However patient was complaining of from right lower quadrant abdominal pain which is improved now with antibiotic as there was evidence of colitis on CAT scan of the abdomen. C. diff was checked and it was negative. There was suspicion of bilateral infiltrates on the chest x-ray that COVID-19 is negative and patient with no respiratory symptoms. Leukocytosis improved to normal 5.9. ID team on the case. Also surgical team recommended outpatient colonoscopy. Objective - Vital Signs Vital signs: Vital Signs Temp 97.8 F 08/21/21 04:00 Pulse 79 08/21/21 04:00 Resp 18 08/21/21 04:00 BP 99/56 08/21/21 04:00 Pulse Ox 100 08/21/21 09:11 Intake & Output 08/20/21 08/21/21 08/21/21 18:59 06:59 18:59 Intake Total 400 240 Output Total 2200 Balance -1800 240 Weight 60.9 kg Intake: Intake, IV Titration 100 Amount Piperacillin-Tazobactam 3 100 .375 gm In Sodium Chloride 0.9% 100 ml @ 25 mls/hr IVPB Q12HR [facility] Rx #:[id number] Oral 240 Hemodialysis 300 Output: Hemodialysis 2200 Other: # Voids 3 # Bowel Movements 1 - Exam GENERAL: The patient is alert and oriented x3, not in any acute distress. Well developed, well nourished. HEENT: Pupils are round and equally reacting to light. EOMI. No scleral icterus. No conjunctival pallor. Normocephalic, atraumatic. No pharyngeal erythema. No thyromegaly. CARDIOVASCULAR: S1 and S2 present. No murmurs, rubs, or gallops. PULMONARY: Chest is clear to auscultation, no wheezing or crackles. ABDOMEN: Soft, nontender, nondistended, normoactive bowel sounds. No palpable organomegaly. MUSCULOSKELETAL: No joint swelling or deformity. EXTREMITIES: No cyanosis, clubbing, or pedal edema. NEUROLOGICAL: Gross neurological examination did not reveal any focal deficits. SKIN: No rashes. no petechiae. - Labs CBC & Chem 7: 08/20/21 12:35 08/20/21 12:35 Labs: Abnormal Lab Results - Last 24 Hours (Table) 08/20/21 08/20/21 08/20/21 Range/Units 12:35 12:35 12:35 RBC 2.92 L (3.80-5.40) m/uL Hgb 7.4 L (11.4-16.0) gm/dL Hct 25.5 L (34.0-46.0) % MCHC 29.0 L (31.0-37.0) g/dL RDW 18.3 H (11.5-15.5) % Sodium 134 L (137-145) mmol/L Carbon Dioxide 21 L (22-30) mmol/L BUN 28 H (7-17) mg/dL Creatinine 6.90 H (0.52-1.04) mg/dL Glucose 134 H (74-99) mg/dL Calcium 7.2 L (8.4-10.2) mg/dL C-Reactive Protein 18.8 H (<1.0) mg/dL Procalcitonin 1.62 H (0.02-0.09) ng/mL Microbiology - Last 24 Hours (Table) 08/20/21 02:30 Stool Culture - Preliminary Stool Assessment and Plan Assessment: non-STEMI, status post PCI to the left circumflex and LAD. Improved and cardiology cleared the patient for discharge Bibasilar groundglass pneumonia suspicious for COVID-19 pneumonia test was negative. Diffuse colitis End-stage renal disease on hemodialysis pt is a Jew Diabetes mellitus Diabetic nephropathy and neuropathy History of GERD Hypertension Hyperlipidemia anemia of chronic disease Plan: This is a pleasant 89 years old female who presents with chest pain and elevated troponin Cardiology consult. They cleared patient for discharge Continue with Zosyn and consult infectious disease team for colitis and pneumonia. Also consult surgery team for pancolitis nephrology team for hemodialysis Labs and medication were reviewed.. Continue same treatment. Continue with symptomatic treatment. Resume home medication. Monitor lytes and vitals. DVT and GI prophylaxis. Further recommendations depends on the clinical course of the patient DVT prophylaxis: heparin GI Prophylaxis: Pepcid Prognosis is guarded
[2021-08-21] MEDS: ZOLPIDEM 5 MG TAB PO PRN (20:57)
[2021-08-22] MEDS: HYDROcodone/APAP 5-325MG 1 EACH TAB PO PRN ×2 (03:46→20:58)
[2021-08-22] MEDS: MAGNEBIND PO SCH (06:07)
[2021-08-22] MEDS: CALCIUM ACETATE 667 MG TAB PO SCH ×3 (06:08→18:12)
[2021-08-22] MEDS: MIDODRINE 5 MG TAB PO SCH ×3 (06:09→18:12)
[2021-08-22] MEDS: CLOPIDOGREL 75 MG TAB PO SCH (08:45)
[2021-08-22] MEDS: ASPIRIN 81 MG PO SCH (08:45)
[2021-08-22] MEDS: PANTOPRAZOLE 40 MG TABLET PO SCH (08:45)
[2021-08-22] MEDS: ATORVASTATIN 80 MG TAB PO SCH (08:45)
[2021-08-22] MEDS: GABAPENTIN 100 MG CAP PO SCH ×4 (08:45→20:57)
[2021-08-22] MEDS: PIPERACILLIN-TAZOBACTAM 3.375 GM in SODIUM CHLORIDE 0.9% 100 ML IVPB SCH ×2 (08:46→21:00)
[2021-08-22] MEDS ORDERED: LIDOCAINE-PRILOCAINE 2.5-2.5% CREAM 5 GM TUBE TOPICAL STA (10:14)
[2021-08-22] MEDS: METOPROLOL TARTRATE 25 MG TAB PO SCH (11:42)
[2021-08-22] MEDS: CHOLESTYRAMINE (WITH SUGAR) 4 GM PACKET PO SCH ×2 (11:53→18:12)
--- NOTE | 2021-08-22 12:14 | P.PN ---
Subjective Patient is seen in follow-up for end-stage renal disease. She is maintained on home hemodialysis. Resting in bed. Denies chest pain or shortness of breath. No vomiting or diarrhea. Blood pressure better today. Vital signs are stable. General: The patient appeared well nourished and normally developed. HEENT: Head exam is unremarkable. LUNGS: Breath sounds decreased. HEART: Rate and Rhythm are regular. ABDOMEN: Soft, no distention. EXTREMITITES: No edema. Objective - Vital Signs Vital signs: Vital Signs Temp 97.6 F 08/22/21 08:26 Pulse 78 08/22/21 08:26 Resp 18 08/22/21 08:26 BP 125/63 08/22/21 08:26 Pulse Ox 100 08/22/21 08:26 Intake & Output 08/21/21 08/22/21 08/22/21 18:59 06:59 18:59 Intake Total 820 100 120 Balance 820 100 120 Weight 64.4 kg Intake: Intake, IV Titration 100 100 Amount Piperacillin-Tazobactam 3 100 100 .375 gm In Sodium Chloride 0.9% 100 ml @ 25 mls/hr IVPB Q12HR [facility] Rx #:[id number] Oral 720 120 Other: Voiding Method Toilet # Voids 1 1 - Labs CBC & Chem 7: 08/20/21 12:35 08/20/21 12:35 Labs: Microbiology - Last 24 Hours (Table) 08/20/21 02:30 Stool Culture - Preliminary Stool Assessment and Plan Plan: Assessment: 1. End-stage renal disease maintained on home hemodialysis. 2. Coronary artery disease status post catheterization with 2 stents placed this admission. 3. Diarrhea due to colitis. On Questran. C. diff negative. 4. Chronic kidney disease mineral bone disease maintained on Sensipar, calcitriol and PhosLo. 5. Anemia of chronic kidney disease maintained on Aranesp. 6. Orthostatic hypotension. On midodrine. Standing blood pressure better today. Plan: Hemodialysis today - minimal UF today. Maintain midodrine.
--- NOTE | 2021-08-22 13:48 | P.DS ---
Providers Date of admission: 08/16/21 16:57 Attending physician: Timbo Tyler MD Consults: 08/16/21 16:50 Consult Physician Routine Consulting Provider: Gloria Reyes Consult Reason/Comments: Chronic kidney failure Do you want consulting provider notified?: Already Contacted Consult Physician Urgent Consulting Provider: Orquidea Hanley Consult Reason/Comments: Elevated troponin, chronic kidney disease Do you want consulting provider notified?: Already Contacted 08/17/21 14:20 Consult Physician Routine Consulting Provider: [facility] Consult Reason/Comments: Post Interventional patient Do you want consulting provider notified?: Already Contacted 08/19/21 09:08 Consult Physician Urgent Consulting Provider: Beth Mulligan Consult Reason/Comments: colititis & PNA Do you want consulting provider notified?: Yes 08/20/21 12:20 Consult Physician Routine Consulting Provider: Gerson Aguilar Consult Reason/Comments: colitis Do you want consulting provider notified?: Already Contacted Primary care physician: De Loveqvi Hospital Course: Patient was admitted for non-ST elevation microinfarction which was acute and patient had a PCI to left circumflex and LAD. Patient was cleared for discharge yesterday although patient became hypotensive and lightheaded just before discharge because of which are lisinopril is being held and metoprolol is being discontinued patient was started on midodrine, patient probably can be discharged today after hemodialysis patient his end-stage renal disease hemodialysis dependent. PHYSICAL EXAMINATION: GENERAL: The patient is alert and oriented x3, not in any acute distress. Well developed, well nourished. HEENT: Pupils are round and equally reacting to light. EOMI. No scleral icterus. No conjunctival pallor. Normocephalic, atraumatic. No pharyngeal erythema. No thyromegaly. CARDIOVASCULAR: S1 and S2 present. No murmurs, rubs, or gallops. PULMONARY: Chest is clear to auscultation, no wheezing or crackles. ABDOMEN: Soft, nontender, nondistended, normoactive bowel sounds. No palpable organomegaly. MUSCULOSKELETAL: No joint swelling or deformity. EXTREMITIES: No cyanosis, clubbing, or pedal edema. NEUROLOGICAL: Gross neurological examination did not reveal any focal deficits. SKIN: No rashes. Assessment and Plan Assessment: non-STEMI, status post PCI to the left circumflex and LAD. Improved and cardiology cleared the patient for discharge Bibasilar groundglass pneumonia suspicious for COVID-19 pneumonia test was negative. Diffuse colitis for which patient is being discharged on Ceftin and metronidazole End-stage renal disease on hemodialysis pt is a Tenriism Diabetes mellitus Diabetic nephropathy and neuropathy History of GERD Hypertension Hyperlipidemia anemia of chronic disease Patient Condition at Discharge: Fair Plan - Discharge Summary Discharge Rx Participant: No New Discharge Prescriptions: New Atorvastatin [Lipitor] 80 mg PO DAILY 30 Days #30 tab Nitroglycerin Sl Tabs [Nitrostat] 0.4 mg SUBLINGUAL Q5M PRN #25 tab PRN Reason: Chest Pain Clopidogrel [Plavix] 75 mg PO DAILY 30 Days #30 tab Cholestyramine (with Sugar) [Questran Packet] 4 gm PO BID@1000,1800 4 Days #8 packet Midodrine [ProAmatine] 5 mg PO AC-TID #90 tab Aspirin 81 mg PO DAILY 30 Days #30 tab Cefuroxime [Ceftin] 250 mg PO BID 7 Days #14 tab metroNIDAZOLE [Flagyl] 500 mg PO TID #30 tab Continue rOPINIRole HCL [Requip] 1 mg PO BID Magnebind 300 2 tab PO TID-W/MEALS Gabapentin [Neurontin] 100 mg PO QID Magnebind 300 1 tab PO DAILY PRN PRN Reason: WITH A SNACK rOPINIRole HCL [Requip] 0.25 mg PO BID calcitrioL [Calcitriol] 1 mcg PO DAILY Lidocaine-Prilocaine Cream [Emla Cream 2.5%/2.5%] 1 applic TOPICAL DAILY PRN PRN Reason: 1-2 hours prior to dialysis Calcium Acetate [PhosLo] 667 mg PO TID-W/MEALS Ergocalciferol (Vitamin D2) [Drisdol (50,000 Iu)] 1,250 mcg PO MO Omeprazole 20 mg PO DAILY Cinacalcet HCl [Sensipar] 90 mg PO W/SUPPER Discontinued lisinopriL [Zestril] 5 mg PO DAILY PRN PRN Reason: high blood pressure Discharge Medication List Magnebind 300 2 tab PO TID-W/MEALS 03/17/19 [History] rOPINIRole HCL [Requip] 1 mg PO BID 03/17/19 [History] Gabapentin [Neurontin] 100 mg PO QID 07/16/21 [History] Calcium Acetate [PhosLo] 667 mg PO TID-W/MEALS 08/16/21 [History] Cinacalcet HCl [Sensipar] 90 mg PO W/SUPPER 08/16/21 [History] Ergocalciferol (Vitamin D2) [Drisdol (50,000 Iu)] 1,250 mcg PO MO 08/16/21 [History] Lidocaine-Prilocaine Cream [Emla Cream 2.5%/2.5%] 1 applic TOPICAL DAILY PRN 08/16/21 [History] Magnebind 300 1 tab PO DAILY PRN 08/16/21 [History] Omeprazole 20 mg PO DAILY 08/16/21 [History] calcitrioL [Calcitriol] 1 mcg PO DAILY 08/16/21 [History] rOPINIRole HCL [Requip] 0.25 mg PO BID 08/16/21 [History] Aspirin 81 mg PO DAILY 30 Days #30 tab 08/20/21 [Rx] Atorvastatin [Lipitor] 80 mg PO DAILY 30 Days #30 tab 08/20/21 [Rx] Clopidogrel [Plavix] 75 mg PO DAILY 30 Days #30 tab 08/20/21 [Rx] Nitroglycerin Sl Tabs [Nitrostat] 0.4 mg SUBLINGUAL Q5M PRN #25 tab 08/20/21 [Rx] Cefuroxime [Ceftin] 250 mg PO BID 7 Days #14 tab 08/21/21 [Rx] Cholestyramine (with Sugar) [Questran Packet] 4 gm PO BID@1000,1800 4 Days #8 packet 08/21/21 [Rx] metroNIDAZOLE [Flagyl] 500 mg PO TID #30 tab 08/21/21 [Rx] Midodrine [ProAmatine] 5 mg PO AC-TID #90 tab 08/22/21 [Rx] Follow up Appointment(s)/Referral(s): Gerson Aguilar MD [Medical Doctor] - 08/29/21 3:30 pm Gloria Reyes MD [STAFF PHYSICIAN] - 2 Weeks De Hopper MD [Primary Care Provider] - 1-2 days Leonard Bauer MD [STAFF PHYSICIAN] - 08/24/21 3:15 pm Activity/Diet/Wound Care/Special Instructions: Patient will require a glucometer and testing supplies due to non insulin depen dent DMII. Patient will need to test daily. Discharge Disposition: HOME SELF-CARE
--- NOTE | 2021-08-22 14:02 | P.PN ---
Subjective This is a pleasant 46-year-old female past medical history significant for type 2 diabetes, hypertension, dyslipidemia, end-stage renal disease on hemodialysis plans for evaluation for renal transplant at [facility] with Dr. Garcia. She follows with Dr. Bauer in the office. We have been asked to see in consultation for chest pain. Patient diagnosed with NSTEMI. Patient underwent cardiac catheterization with Dr. Schaeffer on 08/17 and underwent stenting to the mid LAD and proximal left circumflex. Echocardiogram revealed an EF of 6065 percent, basal inferior LV wall hypokinetic Patient is at bedside, no acute distress. She has been having orthostatic hypotension, started on midodrine. She denies any chest pain or shortness of keshva ath. She has been staying in the hospital for abdominal pain and diarrhea. CT showed Diffuse colonic wall thickening consistent with colitis. She was started on Questran and Imodium. And IV Zosyn. GI recommending colonoscopy as an outpatient. Per infectious disease she was started on Flagyl and cefuroxime for outpatient antibiotics She's currently maintained on aspirin 81 mg daily, atorvastatin 80 mg daily, Plavix 75 mg daily, lisinopril 5 mg daily, metoprolol titrate 25 mg twice a day Vitals reviewed GENERAL: Well-appearing, well-nourished and in no acute distress. NECK: Supple without JVD or thyromegaly. LUNGS: Breath sounds clear to auscultation bilaterally. Respiration equal and u nlabored. No wheezes, rales or rhonchi. HEART: Regular rate and rhythm Systolic ejection mumur noted EXTREMITIES: Normal range of motion, no edema. No clubbing or cyanosis. Peripheral pulses intact. Right fem site clean dry intact no hematoma ASSESSMENT NSTEMI s/p PCI to mid LAD and proximal left circumflex on 08/17/20 Type 2 Diabetes End stage renal disease on hemodialysis Dyslipidemia Diarrhea with evidence of colitis on CAT scan Orthostatic hypotension PLAN Decrease metoprolol to 12.5mg BID From a cardiology perspective, patient is stable on current medication regimen. Ok to discharge when clearance from primary and other consultants. Patient will follow up with Dr. Bauer in the office on 08/24/21 Objective - Vital Signs Vital signs: Vital Signs Temp 97.6 F 08/22/21 08:26 Pulse 80 08/22/21 12:00 Resp 16 08/22/21 12:00 BP 111/60 08/22/21 12:00 Pulse Ox 99 08/22/21 12:00 Intake & Output 08/21/21 08/22/21 08/22/21 18:59 06:59 18:59 Intake Total 820 100 360 Balance 820 100 360 Weight 64.4 kg Intake: Intake, IV Titration 100 100 Amount Piperacillin-Tazobactam 3 100 100 .375 gm In Sodium Chloride 0.9% 100 ml @ 25 mls/hr IVPB Q12HR [facility] Rx #:[id number] Oral 720 360 Other: Voiding Method Toilet Toilet # Voids 1 1 - Labs CBC & Chem 7: 08/20/21 12:35 08/20/21 12:35 Labs: Microbiology - Last 24 Hours (Table) 08/20/21 02:30 Stool Culture - Preliminary Stool
[2021-08-22] MEDS: CINACALCET 30 MG TAB PO SCH (18:12)
[2021-08-22] MEDS: METOPROLOL TARTRATE 12.5 MG TAB PO SCH ×2 (20:57→22:23)
--- NOTE | 2021-08-22 21:44 | P.PN ---
Progress Note - Text Progress Note Date: 08/22/21 Reason for follow-up is pneumonia and colitis HPI: Patient is a 46-year-old -[place] female with a past medical history significant for end-stage renal disease on hemodialysis admitted to the hospital with chest pressure points and abdominal pain has been diagnosed with non-ST elevated [place] and status post cardiac cath and 2 stents patient also have a CT that was suspicious for pneumonia and colitis this patient did have significant diarrhea. On today's evaluation that is 08/22/2021, The patient continues to be afebrile, the patient breathing comfortably room air, denies any chest pain or cough abdominal pain has decreased intensity, he did have some diarrhea though decreased in frequency no blood or mucus in the stool On examination blood pressure is 120/60 pulse of 80 temperature 97.9. General description is a middle-aged Female lying in bed in no distress. Respiratory system: Unlabored breathing. Clear to auscultation anteriorly. Heart S1, S2. Regular rate and rhythm. Abdomen soft, no tenderness. LABS: Stool for C. diff is negative, Stool culture have been negative so far DIAGNOSTIC IMPRESSION AND PLAN: Patient admitted to the hospital with chest pain and did have diarrhea in this patient did have acute non-ST elevated W[place] status post cardiac cath and stenting did have evidence of colitis on the CT, patient seemed to have clinical improvement with the Teresa Dahl finish therapy with the short course of oral Ceftin and Flagyl Prescription has been sent to the pharmacy
[2021-08-22] MEDS: ZOLPIDEM 5 MG TAB PO PRN (22:54)
[2021-08-23] MEDS: ONDANSETRON 4 MG/2 ML VIAL IVP PRN (00:59)
[2021-08-23] MEDS: HYDROcodone/APAP 5-325MG 1 EACH TAB PO PRN (03:06)
[2021-08-23] MEDS: CALCIUM ACETATE 667 MG TAB PO SCH ×2 (06:51→13:08)
[2021-08-23] MEDS: MIDODRINE 5 MG TAB PO SCH (06:51)
[2021-08-23] MEDS ORDERED: SODIUM CHLORIDE 0.9% 500 ML 500 ML IV ONE (09:24)
[2021-08-23 09:33] VITALS: RESP 16
[2021-08-23] MEDS: CHOLESTYRAMINE (WITH SUGAR) 4 GM PACKET PO SCH (09:51)
[2021-08-23] MEDS: ATORVASTATIN 80 MG TAB PO SCH (09:52)
[2021-08-23] MEDS: CLOPIDOGREL 75 MG TAB PO SCH (09:52)
[2021-08-23] MEDS: PANTOPRAZOLE 40 MG TABLET PO SCH (09:52)
[2021-08-23] MEDS: ASPIRIN 81 MG PO SCH (09:52)
[2021-08-23] MEDS: GABAPENTIN 100 MG CAP PO SCH ×2 (09:53→13:08)
[2021-08-23] MEDS: PIPERACILLIN-TAZOBACTAM 3.375 GM in SODIUM CHLORIDE 0.9% 100 ML IVPB SCH ×2 (09:54→11:48)
--- NOTE | 2021-08-23 09:55 | P.PN ---
Subjective Patient is seen in follow-up for end-stage renal disease. She is maintained on home hemodialysis. Resting in bed. Patient noted to be orthostatic again yesterday. Sawyer dizzy with standing. Also vomited once. Vital signs are stable. Orthostatic positive. General: The patient appeared well nourished and normally developed. HEENT: Head exam is unremarkable. LUNGS: Breath sounds decreased. HEART: Rate and Rhythm are regular. ABDOMEN: Soft, no distention. EXTREMITITES: No edema. Objective - Vital Signs Vital signs: Vital Signs Temp 97.9 F 08/23/21 09:26 Pulse 83 08/23/21 09:26 Resp 16 08/23/21 09:26 BP 120/62 08/23/21 09:26 Pulse Ox 100 08/23/21 09:26 Intake & Output 08/22/21 08/23/21 08/23/21 18:59 06:59 18:59 Intake Total 780 100 180 Output Total 800 300 Balance -20 -200 180 Weight 61.1 kg Intake: Intake, IV Titration 100 Amount Piperacillin-Tazobactam 3 100 .375 gm In Sodium Chloride 0.9% 100 ml @ 25 mls/hr IVPB Q12HR [facility] Rx #:[id number] Oral 480 180 Hemodialysis 300 Output: Emesis 300 Hemodialysis 800 Other: Voiding Method Toilet Toilet # Voids 1 # Bowel Movements 1 - Labs CBC & Chem 7: 08/20/21 12:35 08/20/21 12:35 Labs: Microbiology - Last 24 Hours (Table) 08/20/21 02:30 Stool Culture - Final Stool Assessment and Plan Plan: Assessment: 1. End-stage renal disease maintained on home hemodialysis. 2. Coronary artery disease status post catheterization with 2 stents placed this admission. 3. Diarrhea due to colitis. On Questran. C. diff negative. 4. Chronic kidney disease mineral bone disease maintained on Sensipar, calcitriol and PhosLo. 5. Anemia of chronic kidney disease maintained on Aranesp. 6. Orthostatic hypotension. On midodrine. Plan: Hemodialysis tomorrow - no UF. Repeat orthostatics. If orthostatics positive, will give 500 mL bolus of normal saline and increase dose of midodrine to 10 mg 3 times daily. Dose of metoprolol to be adjusted by cardiology.
[2021-08-23] MEDS: METOPROLOL TARTRATE 12.5 MG TAB PO SCH (09:57)
[2021-08-23 11:51] VITALS: TEMP 98
[2021-08-23] MEDS ORDERED: MIDODRINE 5 MG TAB PO SCH (12:30)
--- NOTE | 2021-08-23 13:22 | P.PN ---
Subjective This is a pleasant 46-year-old female past medical history significant for type 2 diabetes, hypertension, dyslipidemia, end-stage renal disease on hemodialysis plans for evaluation for renal transplant at [facility] with Dr. Garcia. She follows with Dr. Bauer in the office. We have been asked to see in consultation for chest pain. Patient diagnosed with NSTEMI. Patient underwent cardiac catheterization with Dr. Schaeffer on 08/17 and underwent stenting to the mid LAD and proximal left circumflex. Echocardiogram revealed an EF of 6065 percent, basal inferior LV wall hypokinetic Patient is at bedside, no acute distress. She has been having orthostatic hypotension, started on midodrine and increased today to 10mg TID by nephrology. She denies any chest pain or shortness of breath. She has been staying in the hospital for abdominal pain and diarrhea. CT showed Diffuse colonic wall thickening consistent with colitis. This has improved. The current issue is her orthostatic hypotension. Overnight patient had an acute episode of lightheadedness, dizziness, nausea and vomiting after standing. BP lying 120/62, sitting 118/60, standing 86/52, HR 80s-90s. She's currently maintained on aspirin 81 mg daily, atorvastatin 80 mg daily, Plavix 75 mg daily, metoprolol tartrate 12.5 mg twice a day, midodrine 5mg TID Vitals reviewed GENERAL: Well-appearing, well-nourished and in no acute distress. NECK: Supple without JVD or thyromegaly. LUNGS: Breath sounds clear to auscultation bilaterally. Respiration equal and unlabored. No wheezes, rales or rhonchi. HEART: Regular rate and rhythm Systolic ejection mumur noted EXTREMITIES: Normal range of motion, no edema. No clubbing or cyanosis. Peripheral pulses intact. Right fem site clean dry intact no hematoma ASSESSMENT NSTEMI s/p PCI to mid LAD and proximal left circumflex on 08/17/20 Type 2 Diabetes End stage renal disease on hemodialysis Dyslipidemia Diarrhea with evidence of colitis on CAT scan Orthostatic hypotension PLAN We will discontinue metoprolol Increase activity as tolerated. IV fluids ordered. If patient has improved symptoms and orthstatic hypotension improved with fluids and increase in midodrine 10mg TID, ok to discharge when clearance from primary and other consultants. Patient will follow up with Dr. Bauer in the office on 08/24/21 Objective - Vital Signs Vital signs: Vital Signs Temp 98.0 F 08/23/21 11:50 Pulse 91 08/23/21 11:50 Resp 16 08/23/21 11:50 BP 118/60 08/23/21 11:50 Pulse Ox 98 08/23/21 11:50 Intake & Output 08/22/21 08/23/21 08/23/21 18:59 06:59 18:59 Intake Total 780 100 180 Output Total 800 300 Balance -20 -200 180 Weight 61.1 kg Intake: Intake, IV Titration 100 Amount Piperacillin-Tazobactam 3 100 .375 gm In Sodium Chloride 0.9% 100 ml @ 25 mls/hr IVPB Q12HR [facility] Rx #:[id number] Oral 480 180 Hemodialysis 300 Output: Emesis 300 Hemodialysis 800 Other: Voiding Method Toilet Toilet Toilet # Voids 1 # Bowel Movements 1 - Labs CBC & Chem 7: 08/20/21 12:35 08/20/21 12:35 Labs: Microbiology - Last 24 Hours (Table) 08/20/21 02:30 Stool Culture - Final Stool
[2021-08-23 15:31] VITALS: BP 150/74; PULSE 90
--- NOTE | 2021-08-24 09:31 | P.DS ---
Providers Date of admission: 08/16/21 16:57 Expected date of discharge: 08/23/21 Attending physician: Timbo Tyler MD Consults: 08/16/21 16:50 Consult Physician Routine Consulting Provider: Gloria Reyes Consult Reason/Comments: Chronic kidney failure Do you want consulting provider notified?: Already Contacted Consult Physician Urgent Consulting Provider: Orquidea Hanley Consult Reason/Comments: Elevated troponin, chronic kidney disease Do you want consulting provider notified?: Already Contacted 08/17/21 14:20 Consult Physician Routine Consulting Provider: [facility] Consult Reason/Comments: Post Interventional patient Do you want consulting provider notified?: Already Contacted 08/19/21 09:08 Consult Physician Urgent Consulting Provider: Beth Mulligan Consult Reason/Comments: colititis & PNA Do you want consulting provider notified?: Yes 08/20/21 12:20 Consult Physician Routine Consulting Provider: Gerson Aguilar Consult Reason/Comments: colitis Do you want consulting provider notified?: Already Contacted Primary care physician: De Hopper Hospital Course: Final diagnosis non-STEMI, status post PCI to the left circumflex and LAD. Bibasilar groundglass pneumonia suspicious for COVID-19 pneumonia test was negative. 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 Patient will follow-up with Dr. Hopper in the outpatient setting upon discharge. Patient will also follow-up with general surgery Dr. Aguilar, nephrology, cardiology in the outpatient setting as scheduled. Patient is to continue with hemodialysis as scheduled. She will continue on oral Ceftin along with Flagyl for the next 1 week. Total time taken is greater than 35 minutes. Hospital course Patient was admitted for non-ST elevation microinfarction which was acute and patient had a PCI to left circumflex and LAD. Patient was cleared for discharge yesterday although patient became hypotensive and lightheaded just before discharge because of which are lisinopril is being held and metoprolol is being discontinued patient was started on midodrine, patient probably can be discharged today after hemodialysis patient his end-stage renal disease hemodialysis dependent. 08/23/2021 Patient was seen and evaluated in follow-up this morning with no acute overnight issues. Patient continues with some mild hypotension and midodrine has been increased to 10 mg 3 times a day and patient is scheduled to receive dialysis today prior to discharge. Patient's dizziness with standing improved and encourage the patient to sit at the side of the bed for 1-2 minutes prior to standing and patient verbalized understanding. Patient will continue with home dialysis 5 days a week as she self hemodialyzes and follow-up with nephrology outpatient. Patient will also need to follow-up with general surgery and card iology in the outpatient setting. Patient will continue on Ceftin and Flagyl for 1 week on discharge. Currently no reports of chest pain, shortness of breath, or palpitations. Patient is afebrile. No reports of nausea or vomiting and patient is tolerating diet. Patient will be discharged home today. PHYSICAL EXAMINATION: GENERAL: The patient is alert and oriented x3, not in any acute distress. Well developed, well nourished. HEENT: Pupils are round and equally reacting to light. EOMI. No scleral icterus. No conjunctival pallor. Normocephalic, atraumatic. No pharyngeal erythema. No thyromegaly. CARDIOVASCULAR: S1 and S2 present. No murmurs, rubs, or gallops. PULMONARY: Chest is clear to auscultation, no wheezing or crackles. ABDOMEN: Soft, nontender, nondistended, normoactive bowel sounds. No palpable organomegaly. MUSCULOSKELETAL: No joint swelling or deformity. EXTREMITIES: No cyanosis, clubbing, or pedal edema. NEUROLOGICAL: Gross neurological examination did not reveal any focal deficits. SKIN: No rashes. Please refer to medication reconciliation sheet for a list of medications. Patient Condition at Discharge: Fair Plan - Discharge Summary Discharge Rx Participant: No New Discharge Prescriptions: New Atorvastatin [Lipitor] 80 mg PO DAILY 30 Days #30 tab Nitroglycerin Sl Tabs [Nitrostat] 0.4 mg SUBLINGUAL Q5M PRN #25 tab PRN Reason: Chest Pain Clopidogrel [Plavix] 75 mg PO DAILY 30 Days #30 tab Cholestyramine (with Sugar) [Questran Packet] 4 gm PO BID@1000,1800 4 Days #8 packet Darbepoetin Tigre [Aranesp] 60 mcg SQ Q7D each Aspirin 81 mg PO DAILY 30 Days #30 tab Cefuroxime [Ceftin] 250 mg PO BID 7 Days #14 tab metroNIDAZOLE [Flagyl] 500 mg PO TID #30 tab Midodrine [ProAmatine] 10 mg PO AC-TID 30 Days #180 tab Continue rOPINIRole HCL [Requip] 1 mg PO BID Magnebind 300 2 tab PO TID-W/MEALS Gabapentin [Neurontin] 100 mg PO QID Magnebind 300 1 tab PO DAILY PRN PRN Reason: WITH A SNACK rOPINIRole HCL [Requip] 0.25 mg PO BID calcitrioL [Calcitriol] 1 mcg PO DAILY Lidocaine-Prilocaine Cream [Emla Cream 2.5%/2.5%] 1 applic TOPICAL DAILY PRN PRN Reason: 1-2 hours prior to dialysis Calcium Acetate [PhosLo] 667 mg PO TID-W/MEALS Ergocalciferol (Vitamin D2) [Drisdol (50,000 Iu)] 1,250 mcg PO MO Omeprazole 20 mg PO DAILY Cinacalcet HCl [Sensipar] 90 mg PO W/SUPPER Discontinued lisinopriL [Zestril] 5 mg PO DAILY PRN PRN Reason: high blood pressure Discharge Medication List Magnebind 300 2 tab PO TID-W/MEALS 03/17/19 [History] rOPINIRole HCL [Requip] 1 mg PO BID 03/17/19 [History] Gabapentin [Neurontin] 100 mg PO QID 07/16/21 [History] Calcium Acetate [PhosLo] 667 mg PO TID-W/MEALS 08/16/21 [History] Cinacalcet HCl [Sensipar] 90 mg PO W/SUPPER 08/16/21 [History] Ergocalciferol (Vitamin D2) [Drisdol (50,000 Iu)] 1,250 mcg PO MO 08/16/21 [History] Lidocaine-Prilocaine Cream [Emla Cream 2.5%/2.5%] 1 applic TOPICAL DAILY PRN 08/16/21 [History] Magnebind 300 1 tab PO DAILY PRN 08/16/21 [History] Omeprazole 20 mg PO DAILY 08/16/21 [History] calcitrioL [Calcitriol] 1 mcg PO DAILY 08/16/21 [History] rOPINIRole HCL [Requip] 0.25 mg PO BID 08/16/21 [History] Aspirin 81 mg PO DAILY 30 Days #30 tab 08/20/21 [Rx] Atorvastatin [Lipitor] 80 mg PO DAILY 30 Days #30 tab 08/20/21 [Rx] Clopidogrel [Plavix] 75 mg PO DAILY 30 Days #30 tab 08/20/21 [Rx] Nitroglycerin Sl Tabs [Nitrostat] 0.4 mg SUBLINGUAL Q5M PRN #25 tab 08/20/21 [Rx] Cefuroxime [Ceftin] 250 mg PO BID 7 Days #14 tab 08/21/21 [Rx] Cholestyramine (with Sugar) [Questran Packet] 4 gm PO BID@1000,1800 4 Days #8 packet 08/21/21 [Rx] metroNIDAZOLE [Flagyl] 500 mg PO TID #30 tab 08/21/21 [Rx] Darbepoetin Tigre [Aranesp] 60 mcg SQ Q7D each 08/23/21 [Rx] Midodrine [ProAmatine] 10 mg PO AC-TID 30 Days #180 tab 08/23/21 [Rx] Follow up Appointment(s)/Referral(s): Gerson Aguilar MD [Medical Doctor] - 08/29/21 3:30 pm (we recommend outpatient colonscopy) Gloria Reyse MD [STAFF PHYSICIAN] - 1 Week (please call and make appt) De Hopper MD [Primary Care Provider] - 09/03/21 1:20 pm Leonard Bauer MD [STAFF PHYSICIAN] - 08/24/21 3:15 pm Activity/Diet/Wound Care/Special Instructions: Patient will require a glucometer and testing supplies due to non insulin dependent DMII. Patient will need to test daily. Activity Limited until follow-up continue to monitor blood pressure closely and keep a diary of blood pressure readings Continue antibiotics until finished Follow-up with nephrology in one week and discuss Aranesp injections weekly Continue hemodialysis Continue heart healthy diet Follow-up cardiology outpatient Discharge Disposition: HOME SELF-CARE
== END 2021-08-23 15:55 | disposition home or self-care (01) | DRG 246 ==
LOC: EC 13:53 → 3SCARD 16:57
PROVIDERS: ADMIT Internal Medicine; ATTEND Internal Medicine
PROC: 5A1D70Z Performance of Urinary Filtration, Intermittent, Less than 6 Hours Per Day (ICD-10-PCS; 2021-08-16)
PROC: 027135Z Dilation of Coronary Artery, Two Arteries with Two Drug-eluting Intraluminal Devices, Percutaneous Approach (ICD-10-PCS; principal; 2021-08-17 11:00)
PROC: B2111ZZ Fluoroscopy of Multiple Coronary Arteries using Low Osmolar Contrast (ICD-10-PCS; 2021-08-17 11:00)
DX: I21.4 Non-ST elevation (NSTEMI) myocardial infarction (principal); J18.9 Pneumonia, unspecified organism; N18.6 End stage renal disease; D84.9 Immunodeficiency, unspecified; I13.2 Hypertensive heart and chronic kidney disease with heart failure and with stage 5 chronic kidney disease, or end stage renal disease; K57.92 Diverticulitis of intestine, part unspecified, without perforation or abscess without bleeding; D63.1 Anemia in chronic kidney disease; E11.40 Type 2 diabetes mellitus with diabetic neuropathy, unspecified; E11.22 Type 2 diabetes mellitus with diabetic chronic kidney disease; E78.5 Hyperlipidemia, unspecified; E87.6 Hypokalemia; G43.909 Migraine, unspecified, not intractable, without status migrainosus; I08.1 Rheumatic disorders of both mitral and tricuspid valves; I25.10 Atherosclerotic heart disease of native coronary artery without angina pectoris; I50.9 Heart failure, unspecified; I27.20 Pulmonary hypertension, unspecified; I95.1 Orthostatic hypotension; K44.9 Diaphragmatic hernia without obstruction or gangrene; K52.9 Noninfective gastroenteritis and colitis, unspecified; K58.9 Irritable bowel syndrome, unspecified; M89.8X9 Other specified disorders of bone, unspecified site; N83.209 Unspecified ovarian cyst, unspecified side; Z20.822 Contact with and (suspected) exposure to COVID-19; K21.9 Gastro-esophageal reflux disease without esophagitis; Z79.02 Long term (current) use of antithrombotics/antiplatelets; Z79.82 Long term (current) use of aspirin; Z79.899 Other long term (current) drug therapy; Z80.0 Family history of malignant neoplasm of digestive organs; Z90.49 Acquired absence of other specified parts of digestive tract; Z99.2 Dependence on renal dialysis
CPT/HCPCS: 36415; 71046; 74018; 74176; 80048; 80053; 80061; 83690; 83735; 83880; 84145; 84484; 85025; 85379; 85610; 85730; 86140; 86706; 87045; 87046; 87324; 87340; 87635; 90935; 93005; 93306; 93454; 94760; 99285

== ENCOUNTER 2021-09-20 05:09 | Inpatient (IN) | payer MEDICARE, BC ==
[2021-09-20 06:04] LABS: Anisocytosis Slight; Basophils % (A) 1 %; Eosinophils # (A) 0.3 k/uL (0-0.7); Eosinophils % (A) 5 %; HCT 31.7 % (34.0-46.0); Hypochromasia Marked; Lymphocytes # (A) 1.1 k/uL (1.0-4.8); Lymphocytes % (A) 20 %; MCHC 30.4 g/dL (31.0-37.0); MCV 85.2 fL (80.0-100.0); Mean Platelet Volume 8.1; Monocytes # (A) 0.3 k/uL (0-1.0); Monocytes % (A) 6 %; Neutrophils # (A) 3.5 k/uL (1.3-7.7); Neutrophils % (A) 67 %; Platelet Count 237 k/uL (150-450); RBC 3.71 m/uL (3.80-5.40); RDW 18.6 % (11.5-15.5); WBC 5.3 k/uL (3.8-10.6)
[2021-09-20 06:12] LABS: INR 1.2 (<1.2); Partial Thromboplastin Time 25.2 sec (22.0-30.0); Prothrombin Time 12.8 sec (9.0-12.0)
[2021-09-20 06:14] LABS: Albumin 4.2 g/dL (3.5-5.0); Calcium 9.4 mg/dL (8.4-10.2); Magnesium 1.9 mg/dL (1.6-2.3); Total Bilirubin 0.4 mg/dL (0.2-1.3); Total Protein 7.7 g/dL (6.3-8.2)
[2021-09-20 06:15] LABS: HGB 9.6 gm/dL (11.4-16.0)
--- NOTE | 2021-09-20 06:34 | ED ---
Chest Pain HPI - General Chief Complaint: Chest Pain Stated Complaint: Chest Pain, Nosebleed Time Seen by Provider: 09/20/21 05:27 Source: patient Mode of arrival: ambulatory Limitations: no limitations - History of Present Illness Initial Comments: This patient is a 46-year-old woman with history of end-stage renal disease, taking dialysis at home, and also coronary artery disease, with stenting August. The patient states that she had finished her dialysis session earlier this morning, a little before 3 AM. As she was finishing this she had some substernal chest tightness. The patient took a nitroglycerin and this relieved the pains. He then tried to sleep for a bit but developed another episode of chest pain that was a little more intense. She took another nitroglycerin and the pain has subsided although there may be a trace of pain remaining. No diaphoresis, dyspnea, nausea or vomiting. MD Complaint: chest pain Onset/Timin -: hour(s) Onset: during rest Pain Location: substernal Pain Radiation: none Severity: moderate Quality: heaviness Consistency: intermittent Improves With: nitroglycerin Worsens With: nothing Treatments Prior to Arrival: nitroglycerin - Related Data Home Medications Medication Instructions Recorded Confirmed Magnebind 300 2 tab PO TID-W/MEALS 03/17/19 09/20/21 rOPINIRole HCL [Requip] 1 mg PO BID 03/17/19 09/20/21 Gabapentin [Neurontin] 100 mg PO QID 07/16/21 09/20/21 Calcium Acetate [PhosLo] 667 mg PO TID-W/MEALS 08/16/21 09/20/21 Cinacalcet HCl [Sensipar] 90 mg PO W/SUPPER 08/16/21 09/20/21 Ergocalciferol (Vitamin D2) 1,250 mcg PO MO 08/16/21 09/20/21 [Drisdol (50,000 Iu)] Lidocaine-Prilocaine Cream [Emla 1 applic TOPICAL DAILY PRN 08/16/21 09/20/21 Cream 2.5%/2.5%] Magnebind 300 1 tab PO DAILY PRN 08/16/21 09/20/21 Omeprazole 20 mg PO DAILY 08/16/21 09/20/21 calcitrioL [Calcitriol] 1.5 mcg PO DAILY 08/16/21 09/20/21 rOPINIRole HCL [Requip] 0.25 mg PO BID 08/16/21 09/20/21 Zolpidem [Ambien] 5 mg PO HS PRN 09/20/21 09/20/21 Previous Rx's Medication Instructions Recorded Aspirin 81 mg PO DAILY 30 Days #30 tab 08/20/21 Atorvastatin [Lipitor] 80 mg PO DAILY 30 Days #30 tab 08/20/21 Clopidogrel [Plavix] 75 mg PO DAILY 30 Days #30 tab 08/20/21 Nitroglycerin Sl Tabs [Nitrostat] 0.4 mg SUBLINGUAL Q5M PRN #25 tab 08/20/21 Darbepoetin Tigre [Aranesp] 60 mcg SQ Q7D each 08/23/21 Midodrine [ProAmatine] 10 mg PO AC-TID 30 Days #180 tab 08/23/21 Isosorbide Mononitrate ER [Imdur] 30 mg PO DAILY #30 tablet 09/22/21 Metoprolol Tartrate [Lopressor] 25 mg PO BID #60 tab 09/22/21 Allergies Allergy/AdvReac Type Severity Reaction Status Date / Time No Known Allergies Allergy Verified 09/20/21 06:29 Review of Systems ROS Statement: Those systems with pertinent positive or pertinent negative responses have been documented in the HPI. ROS Other: All systems not noted in ROS Statement are negative. Constitutional: Denies: fever, chills, weakness Respiratory: Denies: cough, dyspnea Cardiovascular: Reports: as per HPI, chest pain. Denies: palpitations, orthopnea, edema, syncope Gastrointestinal: Denies: abdominal pain, nausea, vomiting EKG Findings - EKG Results: EKG: interpreted by ERMD, sinus rhythm, normal axis EKG shows: tachycardia (Rate 100 bpm) Past Medical History Past Medical History: Heart Failure, Diabetes Mellitus, Dialysis, GERD/Reflux, Hyperlipidemia, Hypertension, Renal Disease Additional Past Medical History / Comment(s): End stage RENAL FAILURE WITH CURRENT HEMODIALYSIS @ home. Hx of respiratory failure due to sepsis and was vented once, Hx of IDDM type II, diabetic neuropathy bilateral feet, hx. of anemia, hiatal hernia, [id number].Migraines. History of Any Multi-Drug Resistant Organisms: None Reported Past Surgical History: Bowel Resection, Breast Surgery, Cholecystectomy, Hernia Repair Additional Past Surgical History / Comment(s): R breast biopsy X 2 both benign, breast reduction, akosua cataracts removed HAS HAD 2 PERITONEAL DIALYSIS CATHETERS, AND 5 HEMODIALYSIS CATHETHERS, umbilical hernia repair with ischemic bowel within-small resection, colonoscopy/EGD. Removed L Ovary. Graft R arm. Past Anesthesia/Blood Transfusion Reactions: Motion Sickness, Postoperative Nausea & Vomiting (PONV) Additional Past Anesthesia/Blood Transfusion Reaction / Comment(s): no blood products-pt is a Mandaeism Past Psychological History: No Psychological Hx Reported Smoking Status: Never smoker Past Alcohol Use History: Occasional Past Drug Use History: None Reported - Past Family History Mother Family Medical History: Osteoarthritis (OA) Additional Family Medical History / Comment(s): . Father Family Medical History: Cancer Additional Family Medical History / Comment(s): Father of LIVER cancer at age 61 yrs. General Exam Limitations: no limitations General appearance: alert, in distress Head exam: Present: atraumatic, normocephalic Eye exam: Present: normal appearance. Absent: scleral icterus, conjunctival injection Neck exam: Present: normal inspection, full ROM. Absent: meningismus Respiratory exam: Present: rales (Bilateral bases). Absent: wheezes, rhonchi, stridor, accessory muscle use Cardiovascular Exam: Present: normal rhythm, tachycardia, systolic murmur, gallop. Absent: diastolic murmur, rubs GI/Abdominal exam: Present: soft. Absent: distended, tenderness, guarding, rebound, rigid, mass Extremities exam: Present: normal inspection, normal capillary refill. Absent: pedal edema, calf tenderness Back exam: Present: normal inspection Neurological exam: Present: alert Skin exam: Present: warm, dry, intact, normal color. Absent: rash Course Vital Signs 09/20/21 09/20/21 09/20/21 05:13 05:52 08:00 Temperature 97.8 F Pulse Rate 105 H 102 H Pulse Rate [ 97 Pulse Oximetery ] Respiratory 20 20 16 Rate Blood Pressure 161/102 159/93 O2 Sat by Pulse 100 98 Oximetry Disposition Clinical Impression: Chronic renal failure, Non-STEMI (non-ST elevated myocardial infarction), Congestive heart failure Disposition: ADMITTED IP TO THIS HOSP Condition: Serious Is patient prescribed a controlled substance at d/c from ED?: No
--- NOTE | 2021-09-20 07:19 | XR ---
EXAMINATION TYPE: XR chest 2V DATE OF EXAM: 09/20/2021 COMPARISON: 08/16/2021 HISTORY: 46-year-old female with chest pain TECHNIQUE: PA and lateral views FINDINGS: Heart upper limits of normal in size. Metastatic arch calcifications. Mild interstitial prominence is unchanged. Patchy medial right basilar opacity. No pleural effusion. IMPRESSION: 1. Unchanged interstitial prominence. Correlate for possible bronchitis or chronic asthma and to excl ude mild pulmonary vascular congestion. 2. Mild patchy medial right basilar atelectasis versus early infiltrate. Clinically correlate.
[2021-09-20] MEDS ORDERED: NALOXONE 0.4 MG/ML 1 ML VIAL IV PRN (07:32)
[2021-09-20] MEDS ORDERED: ACETAMINOPHEN TAB 325 MG TAB PO PRN (07:32)
[2021-09-20] MEDS: MORPHINE SULFATE 4 MG/ML SYRINGE IV PRN ×2 (07:49→21:03)
[2021-09-20] MEDS ORDERED: NITROGLYCERIN SL TABS 0.4 MG TAB SUBLINGUAL PRN (10:05)
--- NOTE | 2021-09-20 10:13 | P.NPCON ---
History of Present Illness - Reason for Consult end stage renal disease - History of Present Illness Reason for consultation: End-stage renal disease History of present illness: Patient is a 46-year-old female seen in renal consultation for end-stage renal disease. She is maintained on home hemodialysis and performs 5 hemodialysis treatments weekly. Patient states she started her treatment late last night and developed chest pain at the end of the treatment. She took a nitroglycerin and fell asleep. When she woke up her chest pain was worse and also had a nosebleed. Patient has history of coronary artery disease and had 2 stents placed about a month ago. She does take Plavix. Currently she is feeling better. No vomiting or diarrhea. Afebrile. She tested negative for coronavirus. Oral intake has been fair. Hemoglobin 9.6. Vital signs are stable. General: The patient appeared well nourished and normally developed. HEENT: Head exam is unremarkable. LUNGS: Breath sounds decreased. HEART: Rate and Rhythm are regular. ABDOMEN: Soft, no distention. EXTREMITITES: No edema. Past Medical History Past Medical History: Heart Failure, Diabetes Mellitus, Dialysis, GERD/Reflux, Hyperlipidemia, Hypertension, Renal Disease Additional Past Medical History / Comment(s): End stage RENAL FAILURE WITH CURRENT HEMODIALYSIS @ home. Hx of respiratory failure due to sepsis and was vented once, Hx of IDDM type II, diabetic neuropathy bilateral feet, hx. of anemia, hiatal hernia, [id number].Migraines. History of Any Multi-Drug Resistant Organisms: None Reported Past Surgical History: Bowel Resection, Breast Surgery, Cholecystectomy, Hernia Repair Additional Past Surgical History / Comment(s): R breast biopsy X 2 both benign, breast reduction, akosua cataracts removed HAS HAD 2 PERITONEAL DIALYSIS CATHETERS, AND 5 HEMODIALYSIS CATHETHERS, umbilical hernia repair with ischemic bowel within-small resection, colonoscopy/EGD. Removed L Ovary. Graft R arm. Past Anesthesia/Blood Transfusion Reactions: Motion Sickness, Postoperative Nausea & Vomiting (PONV) Additional Past Anesthesia/Blood Transfusion Reaction / Comment(s): no blood products-pt is a Hindu Past Psychological History: No Psychological Hx Reported Smoking Status: Never smoker Past Alcohol Use History: Occasional Past Drug Use History: None Reported - Past Family History Mother Family Medical History: Osteoarthritis (OA) Additional Family Medical History / Comment(s): . Father Family Medical History: Cancer Additional Family Medical History / Comment(s): Father of LIVER cancer at age 61 yrs. Medications and Allergies Home Medications Medication Instructions Recorded Confirmed Type Magnebind 300 2 tab PO TID-W/MEALS 03/17/19 09/20/21 History rOPINIRole HCL [Requip] 1 mg PO BID 03/17/19 09/20/21 History Gabapentin [Neurontin] 100 mg PO QID 07/16/21 09/20/21 History Calcium Acetate [PhosLo] 667 mg PO TID-W/MEALS 08/16/21 09/20/21 History Cinacalcet HCl [Sensipar] 90 mg PO W/SUPPER 08/16/21 09/20/21 History Ergocalciferol (Vitamin D2) 1,250 mcg PO MO 08/16/21 09/20/21 History [Drisdol (50,000 Iu)] Lidocaine-Prilocaine Cream [Emla 1 applic TOPICAL DAILY PRN 08/16/21 09/20/21 History Cream 2.5%/2.5%] Magnebind 300 1 tab PO DAILY PRN 08/16/21 09/20/21 History Omeprazole 20 mg PO DAILY 08/16/21 09/20/21 History calcitrioL [Calcitriol] 1.5 mcg PO DAILY 08/16/21 09/20/21 History rOPINIRole HCL [Requip] 0.25 mg PO BID 08/16/21 09/20/21 History Aspirin 81 mg PO DAILY 30 Days #30 tab 08/20/21 09/20/21 Rx Atorvastatin [Lipitor] 80 mg PO DAILY 30 Days #30 tab 08/20/21 09/20/21 Rx Clopidogrel [Plavix] 75 mg PO DAILY 30 Days #30 tab 08/20/21 09/20/21 Rx Nitroglycerin Sl Tabs [Nitrostat] 0.4 mg SUBLINGUAL Q5M PRN #25 tab 08/20/21 09/20/21 Rx Darbepoetin Tigre [Aranesp] 60 mcg SQ Q7D each 08/23/21 09/20/21 Rx Midodrine [ProAmatine] 10 mg PO AC-TID 30 Days #180 tab 08/23/21 09/20/21 Rx Metoprolol Tartrate [Lopressor] 12.5 mg PO BID 09/20/21 09/20/21 History Zolpidem [Ambien] 5 mg PO HS PRN 09/20/21 09/20/21 History Allergies Allergy/AdvReac Type Severity Reaction Status Date / Time No Known Allergies Allergy Verified 09/20/21 06:29 Physical Exam Vitals: Vital Signs Temp Pulse Resp BP Pulse Ox 09/20/21 05:52 102 H 20 159/93 98 09/20/21 05:13 97.8 F 105 H 20 161/102 100 Intake and Output 09/19/21 09/20/21 09/20/21 22:59 06:59 14:59 Other: Weight 61.689 kg Results - Lab Results Most recent lab results Calcium 9.4 mg/dL (8.4-10.2) 09/20/21 05:55 Magnesium 1.9 mg/dL (1.6-2.3) 09/20/21 05:55 09/20/21 05:55 09/20/21 05:55 Assessment and Plan Plan: Assessment: 1. End-stage renal disease maintained on home hemodialysis. Patient is a right upper extremity AV graft. 2. Chest pain. Cardiology consulted. 3. Coronary artery disease status post cardiac stenting about a month ago. 4. Anemia of chronic kidney disease. She did have nosebleed prior to admission. On Aranesp. 5. Chronic kidney disease mineral bone disease maintained on PhosLo and Sensipar. 6. Chronic hypotension maintained on midodrine. Blood pressures currently on the higher side. Plan: Hemodialysis tomorrow. Hold midodrine for systolic blood pressure greater than 110. Check iron studies. Thank you for the consultation. I will continue to follow patient with you during her hospital stay.
[2021-09-20] MEDS ORDERED: DARBEPOETIN ALFA 60 MCG/0.3 ML SYRINGE SQ SCH (10:15)
--- NOTE | 2021-09-20 11:37 | ECHOF ---
Referral Reason:Repeat Full. Worsening chest pain MEASUREMENTS -------- HEIGHT: 160.0 cm WEIGHT: 61.7 kg BP: RVIDd: 1.8 cm (< 3.3) IVSd: 1.3 cm (0.6 - 1.1) LVIDd: 4.2 cm (3.9 - 5.3) LVPWd: 1.3 cm (0.6 - 1.1) IVSs: 1.9 cm LVIDs: 2.3 cm LVPWs: 1.9 cm LAESV Index (A-L): 18.12 ml/m Ao Diam: 3.1 cm (2.0 - 3.7) AV Cusp: 1.8 cm (1.5 - 2.6) LA Diam: 3.2 cm (2.7 - 3.8) MV EXCURSION: 19.740 mm (> 18.000) MV EF SLOPE: 118 mm/s (70 - 150) EPSS: 1.2 cm MV E Cuauhtemoc: 1.07 m/s MV DecT: 121 ms MV A Cuauhtemoc: 1.19 m/s MV E/A Ratio: 0.89 RAP: 5.00 mmHg RVSP: 35.34 mmHg FINDINGS -------- Sinus rhythm. This was a technically adequate study. The left ventricular size is normal. There is mild concentric left ventricular hypertrophy. Overa ll left ventricular systolic function is low-normal with, an EF between 50 - 55 %. Normal LAP Grade 1 Diastolic Dysfunction. The right ventricle is normal in size. Normal LA size by volume 22+/-6 ml/m2. The right atrial size is normal. The aortic valve is trileaflet, and appears structurally normal. No aortic stenosis or regurgitation. Mild mitral annular calcification present. Moderate mitral regurgitation is present. The tricuspid valve appears structurally normal. Mild tricuspid regurgitation present. There is m ild pulmonary hypertension. The right ventricular systolic pressure, as measured by Doppler, is 35. 34mmHg. There is no pulmonic regurgitation present. The aortic root size is normal. Normal inferior vena cava with normal inspiratory collapse consistent with estimated right atrial pre ssure of 5 mmHg. There is a trivial pericardial effusion present. CONCLUSIONS -------- 1. There is mild concentric left ventricular hypertrophy. 2. Overall left ventricular systolic function is low-normal with, an EF between 50 - 55 %. 3. Normal LAP Grade 1 Diastolic Dysfunction. 4. The aortic valve is trileaflet, and appears structurally normal. No aortic stenosis or regurgitati on. 5. Moderate mitral regurgitation is present. 6. Mild tricuspid regurgitation present. 7. There is mild pulmonary hypertension. 8. There is a trivial pericardial effusion present. BENEFITS CONSULTANT: Flora Evans RDCS
--- NOTE | 2021-09-20 11:59 | P.CRDCN ---
History of Present Illness History of present illness: HISTORY OF PRESENTING ILLNESS This is a pleasant 46-year-old female past medical history significant for Recent admission with NSTEMI in 08/2021 s/p PCI to mid LAD and Proximal left circumflex 08/17/2021, type 2 diabetes, hypertension, dyslipidemia, end-stage renal disease on hemodialysis plans for evaluation for renal transplant at [facility] with Dr. Garcia. She follows with Dr. Bauer in the office. We have been asked to see in consultation for chest pain. Patient presents emergency department with complaints of left sided and center chest pain, describes it as a heavy pressure. Yesterday she felt as if she could not take a deep breath. Her pain is non-radiating. Non-exertional. It does comes and go, however, this time she feels her pain is similar to when she presented in August however pain is now more intense then prior admission. She did have associated shortness of breath. She denies any diaphoresis, nausea, vomiting, lightheadedness, dizziness, syncope or near syncope. She denies any symptoms of orthopnea or PND. Her pain is not aggravated by taking a deep breath or movement. DIAGNOSTICS EKG sinus tachycardia, heart rate 100,T wave inversion in lead III, no acute ST ST-T wave abnormalities. Prior EKG in August 2021 with similar findings Echocardiogram this admission revealed EF 50-55%, moderate MR, mild TR Echocardiogram 08/16/2021 revealed an EF of 6065%, basal inferior LV wall hypokinetic Chest xray unchanged interstitial prominence Laboratory reviewed, troponin 0.09, proBNP 58,000, sodium 141, potassium 4.0, BUN 39, serum creatinine 6.4, covid negative, Hgb 9.6 Current home medications include aspirin 81 mg daily, Plavix 70 mg daily, atorvastatin 80 mg daily, midodrine 10 mg 3 times a day, metoprolol tartrate 12.5 mg twice a day REVIEW OF SYSTEMS At the time of my exam: CONSTITUTIONAL: Denies fever or chills. CARDIOVASCULAR: +chest pain, Denies shortness of breath, orthopnea, PND or palpitations. RESPIRATORY: Denies cough. GASTROINTESTINAL: Denies abdominal pain, diarrhea, constipation, nausea or vomiting. MUSCULOSKELETAL: Denies myalgias. NEUROLOGIC: Denies numbness, tingling, headache or weakness. ENDOCRINE: Denies fatigue, weight change, polydipsia or polyurina. GENITOURINARY: Denies burning, hematuria or urgency with micturation. HEMATOLOGIC: +history of anemia Denies bleeding. PHYSICAL EXAMINATION Vitals reviewed CONSTITUTIONAL: No apparent distress. HEENT: Head is normocephalic. Pupils are equal, round. Sclerae anicteric. Mucous membranes of the mouth are moist. No JVD. No carotid bruit. CHEST EXAMINATION: Lungs are clear to auscultation. No chest wall tenderness is noted on palpation or with deep breathing. HEART EXAMINATION: Regular rate and rhythm. S1, S2 heard. Systolic ejection murmur noted. ABDOMEN: Soft, nontender. Positive bowel sounds. EXTREMITIES: 2+ peripheral pulses, no lower extremity edema and no calf tenderness. SKIN: warm, dry NEUROLOGIC EXAMINATION: Patient is awake, alert and oriented x3. ASSESSMENT Chest pain Elevated troponin Recent NSTEMI Coronary artery disease s/p PCI to mid LAD and Proximal left circumflex 08/17/2021 Type 2 Diabetes End stage renal disease on hemodialysis Dyslipidemia Colitis previous hospitalization August 2021 Previous hospitalization patient with orthostatic hypotension PLAN -Trend troponin -Repeat EKG -Echocardiogram this admission revealed EF 50-55% -Orthostatic vital signs rechecked today and are negative. -Increase metoprolol tartrate to 25mg BID -Add Imdur 30mg daily -Continue dual anti platelet therapy with aspirin and plavix -Nephrology consulted for hemodialysis -Further recommendations based on clinical course and above workup -Keep NPO after midnight for possible intervention based on work up Thank you kindly for this consultation. Nurse Practitioner note has been reviewed, I agree with a documented findings and plan of care. Patient was seen and examined. Past Medical History Past Medical History: Heart Failure, Diabetes Mellitus, Dialysis, GERD/Reflux, H yperlipidemia, Hypertension, Renal Disease Additional Past Medical History / Comment(s): End stage RENAL FAILURE WITH CURRENT HEMODIALYSIS @ home. Hx of respiratory failure due to sepsis and was vented once, Hx of IDDM type II, diabetic neuropathy bilateral feet, hx. of ane angi, hiatal hernia, [id number].Migraines. History of Any Multi-Drug Resistant Organisms: None Reported Past Surgical History: Bowel Resection, Breast Surgery, Cholecystectomy, Hernia Repair Additional Past Surgical History / Comment(s): R breast biopsy X 2 both benign, breast reduction, akosua cataracts removed HAS HAD 2 PERITONEAL DIALYSIS CATHETERS, AND 5 HEMODIALYSIS CATHETHERS, umbilical hernia repair with ischemic bowel within-small resection, colonoscopy/EGD. Removed L Ovary. Graft R arm. Past Anesthesia/Blood Transfusion Reactions: Motion Sickness, Postoperative Nausea & Vomiting (PONV) Additional Past Anesthesia/Blood Transfusion Reaction / Comment(s): no blood products-pt is a Jew Past Psychological History: No Psychological Hx Reported Smoking Status: Never smoker Past Alcohol Use History: Occasional Past Drug Use History: None Reported - Past Family History Mother Family Medical History: Osteoarthritis (OA) Additional Family Medical History / Comment(s): . Father Family Medical History: Cancer Additional Family Medical History / Comment(s): Father of LIVER cancer at age 61 yrs. Medications and Allergies Home Medications Medication Instructions Recorded Confirmed Type Magnebind 300 2 tab PO TID-W/MEALS 03/17/19 09/20/21 History rOPINIRole HCL [Requip] 1 mg PO BID 03/17/19 09/20/21 History Gabapentin [Neurontin] 100 mg PO QID 07/16/21 09/20/21 History Calcium Acetate [PhosLo] 667 mg PO TID-W/MEALS 08/16/21 09/20/21 History Cinacalcet HCl [Sensipar] 90 mg PO W/SUPPER 08/16/21 09/20/21 History Ergocalciferol (Vitamin D2) 1,250 mcg PO MO 08/16/21 09/20/21 History [Drisdol (50,000 Iu)] Lidocaine-Prilocaine Cream [Emla 1 applic TOPICAL DAILY PRN 08/16/21 09/20/21 History Cream 2.5%/2.5%] Magnebind 300 1 tab PO DAILY PRN 08/16/21 09/20/21 History Omeprazole 20 mg PO DAILY 08/16/21 09/20/21 History calcitrioL [Calcitriol] 1.5 mcg PO DAILY 08/16/21 09/20/21 History rOPINIRole HCL [Requip] 0.25 mg PO BID 08/16/21 09/20/21 History Aspirin 81 mg PO DAILY 30 Days #30 tab 08/20/21 09/20/21 Rx Atorvastatin [Lipitor] 80 mg PO DAILY 30 Days #30 tab 08/20/21 09/20/21 Rx Clopidogrel [Plavix] 75 mg PO DAILY 30 Days #30 tab 08/20/21 09/20/21 Rx Nitroglycerin Sl Tabs [Nitrostat] 0.4 mg SUBLINGUAL Q5M PRN #25 tab 08/20/21 09/20/21 Rx Darbepoetin Tigre [Aranesp] 60 mcg SQ Q7D each 08/23/21 09/20/21 Rx Midodrine [ProAmatine] 10 mg PO AC-TID 30 Days #180 tab 08/23/21 09/20/21 Rx Metoprolol Tartrate [Lopressor] 12.5 mg PO BID 09/20/21 09/20/21 History Zolpidem [Ambien] 5 mg PO HS PRN 09/20/21 09/20/21 History Allergies Allergy/AdvReac Type Severity Reaction Status Date / Time No Known Allergies Allergy Verified 09/20/21 06:29 Physical Exam Vitals: Vital Signs Temp Pulse Resp BP Pulse Ox 09/20/21 05:52 102 H 20 159/93 98 09/20/21 05:13 97.8 F 105 H 20 161/102 100 Intake and Output 09/19/21 09/20/21 09/20/21 22:59 06:59 14:59 Other: Weight 61.689 kg Results 09/20/21 05:55 09/20/21 05:55 Cardiac Enzymes 09/20/21 09/20/21 Range/Units 05:55 05:55 AST 16 (14-36) U/L Troponin I 0.092 H* (0.000-0.034) ng/mL Coagulation 09/20/21 Range/Units 05:55 PT 12.8 H (9.0-12.0) sec APTT 25.2 (22.0-30.0) sec CBC 09/20/21 Range/Units 05:55 WBC 5.3 (3.8-10.6) k/uL RBC 3.71 L (3.80-5.40) m/uL Hgb 9.6 L D (11.4-16.0) gm/dL Hct 31.7 L (34.0-46.0) % Plt Count 237 (150-450) k/uL Comprehensive Metabolic Panel 09/20/21 Range/Units 05:55 Sodium 141 (137-145) mmol/L Potassium 4.0 (3.5-5.1) mmol/L Chloride 102 (98-107) mmol/L Carbon Dioxide 25 (22-30) mmol/L BUN 39 H (7-17) mg/dL Creatinine 6.45 H (0.52-1.04) mg/dL Glucose 147 H (74-99) mg/dL Calcium 9.4 (8.4-10.2) mg/dL AST 16 (14-36) U/L ALT 10 (4-34) U/L Alkaline Phosphatase 86 (38-126) U/L Total Protein 7.7 (6.3-8.2) g/dL Albumin 4.2 (3.5-5.0) g/dL Current Medications Generic Name Dose Route Start Last Admin Trade Name Freq PRN Reason Stop Dose Admin Acetaminophen 650 mg 09/20/21 07:32 Acetaminophen Tab 325 Mg Tab PO Q6HR PRN Mild Pain or Fever > 100.5 Morphine Sulfate 4 mg 09/20/21 07:32 09/20/21 07:49 Morphine Sulfate 4 Mg/Ml Syringe IV 4 mg Q4HR PRN Administration Severe Pain Naloxone HCl 0.2 mg 09/20/21 07:32 Naloxone 0.4 Mg/Ml 1 Ml Vial IV Q2M PRN Opioid Reversal Intake and Output 09/19/21 09/20/21 09/20/21 22:59 06:59 14:59 Other: Weight 61.689 kg 09/20/21 05:55 09/20/21 05:55
[2021-09-20 12:17] LABS: Glucose,Whole Blood 123 mg/dL (75-99)
[2021-09-20] MEDS: METOPROLOL TARTRATE 25 MG TAB PO SCH ×2 (12:25→20:18)
[2021-09-20] MEDS: ASPIRIN 81 MG PO SCH (12:25)
[2021-09-20] MEDS: GABAPENTIN 100 MG CAP PO SCH ×3 (12:25→20:17)
[2021-09-20] MEDS: CALCIUM ACETATE 667 MG TAB PO SCH ×2 (12:25→17:16)
[2021-09-20] MEDS: MIDODRINE 5 MG TAB PO SCH ×2 (12:26→17:16)
[2021-09-20] MEDS: CLOPIDOGREL 75 MG TAB PO SCH (12:26)
[2021-09-20] MEDS: ISOSORBIDE MONONITRATE ER 30 MG TAB.ER.24H PO SCH (12:26)
--- NOTE | 2021-09-20 15:34 | P.HPIM ---
History of Present Illness This is a pleasant 46 years old female with past medical history of Coronary Artery Disease status post stent placement 2 about one month ago , Heart Failure, Diabetes Mellitus, end-stage renal disease on hemodialysis care, GERD/R eflux, Hyperlipidemia, Hypertension, bilateral retinal bleeds. Presents because of chest pain after finishing her hemodialysis this morning hemodialysis which got worse after a nap. Patient pain is in the middle nonradiating felt like a lot of pressure about 4/10 and 6/10 as she describes associated with some difficulty breathing but no coughing. Patient says that she makes little urine and that she denies abdominal pain. Patient has chronic diarrhea. No new urinary complaints. She denies headache or dizziness. She does not smoke cigarettes, no illicit tracts and rarely she drinks alcohol Vitas looks stable, blood pressure is slightly elevated 162/84 Hemoglobin is 9.6, baseline is 7.4-10.8. INR 1.2, creatinine 6.4, troponin elevated 0.09, rest of the CBC, BMP and liver enzymes are unremarkable. coronavirus not dictated. Echocardiogram showed ejection fraction of 50-55% with moderate mitral regurgitation Chest x-ray: Unchanged interstitial prominence. Correlate for possible bronch itis or chronic asthma and to exclude mild pulmonary vascular congestion. Mild patchy medial right basilar atelectasis versus early infiltrate. Clinically correlate Review of Systems CONSTITUTIONAL: No fever, no malaise, no fatigue. HEENT: No recent visual problems or hearing problems. Denied any sore throat. CARDIOVASCULAR: No orthopnea, PND, no palpitations, no syncope. PULMONARY: No shortness of breath, no cough, no hemoptysis. GASTROINTESTINAL: No diarrhea, no nausea, no vomiting, no abdominal pain. Normoactive bowel sounds. NEUROLOGICAL: No headaches, no weakness, no numbness. HEMATOLOGICAL: Denies any bleeding or petechiae. GENITOURINARY: Denies any burning micturition, frequency, or urgency. MUSCULOSKELETAL/RHEUMATOLOGICAL: Denies any joint pain, swelling, or any muscle pain. ENDOCRINE: Denies any polyuria or polydipsia. Past Medical History Past Medical History: Coronary Artery Disease (CAD), Heart Failure, Diabetes Mellitus, Dialysis, Eye Disorder, GERD/Reflux, Hyperlipidemia, Hypertension, Re nal Disease Additional Past Medical History / Comment(s): Pt recently admitted to [facility] on 08/16/21 with NSTEMI/pneumonia/ciolitis. Other hx: End stage RENAL FAILURE WITH CURRENT HEMODIALYSIS @ home. Hx of respiratory failure due to sepsis and was vented once, Hx of IDDM type II, diabetic neuropathy bilateral feet, hx. of anemia, hiatal hernia, [id number].Migraines, bilateral retinal bleeds. History of Any Multi-Drug Resistant Organisms: None Reported Past Surgical History: Bowel Resection, Breast Surgery, Cholecystectomy, Heart Catheterization With Stent, Hernia Repair Additional Past Surgical History / Comment(s): 08/17/21 PCI with stent, R breast biopsy X 2 both benign, breast reduction, akosua cataracts removed HAS HAD 2 PERITONEAL DIALYSIS CATHETERS, AND 5 HEMODIALYSIS CATHETHERS, umbilical hernia repair with ischemic bowel within-small resection, colonoscopy/EGD. Removed L Ovary. Graft R arm. Past Anesthesia/Blood Transfusion Reactions: Motion Sickness, Postoperative Nausea & Vomiting (PONV) Additional Past Anesthesia/Blood Transfusion Reaction / Comment(s): no blood products-pt is a [employer] Date of Last Stent Placement:: 08/17/21 Smoking Status: Never smoker - Past Family History Mother Family Medical History: Osteoarthritis (OA) Additional Family Medical History / Comment(s): . Father Family Medical History: Cancer Additional Family Medical History / Comment(s): Father of LIVER cancer at age 61 yrs. Medications and Allergies Home Medications Medication Instructions Recorded Confirmed Type Magnebind 300 2 tab PO TID-W/MEALS 03/17/19 09/20/21 History rOPINIRole HCL [Requip] 1 mg PO BID 03/17/19 09/20/21 History Gabapentin [Neurontin] 100 mg PO QID 07/16/21 09/20/21 History Calcium Acetate [PhosLo] 667 mg PO TID-W/MEALS 08/16/21 09/20/21 History Cinacalcet HCl [Sensipar] 90 mg PO W/SUPPER 08/16/21 09/20/21 History Ergocalciferol (Vitamin D2) 1,250 mcg PO MO 08/16/21 09/20/21 History [Drisdol (50,000 Iu)] Lidocaine-Prilocaine Cream [Emla 1 applic TOPICAL DAILY PRN 08/16/21 09/20/21 History Cream 2.5%/2.5%] Magnebind 300 1 tab PO DAILY PRN 08/16/21 09/20/21 History Omeprazole 20 mg PO DAILY 08/16/21 09/20/21 History calcitrioL [Calcitriol] 1.5 mcg PO DAILY 08/16/21 09/20/21 History rOPINIRole HCL [Requip] 0.25 mg PO BID 08/16/21 09/20/21 History Aspirin 81 mg PO DAILY 30 Days #30 tab 08/20/21 09/20/21 Rx Atorvastatin [Lipitor] 80 mg PO DAILY 30 Days #30 tab 08/20/21 09/20/21 Rx Clopidogrel [Plavix] 75 mg PO DAILY 30 Days #30 tab 08/20/21 09/20/21 Rx Nitroglycerin Sl Tabs [Nitrostat] 0.4 mg SUBLINGUAL Q5M PRN #25 tab 08/20/21 09/20/21 Rx Darbepoetin Tigre [Aranesp] 60 mcg SQ Q7D each 08/23/21 09/20/21 Rx Midodrine [ProAmatine] 10 mg PO AC-TID 30 Days #180 tab 08/23/21 09/20/21 Rx Metoprolol Tartrate [Lopressor] 12.5 mg PO BID 09/20/21 09/20/21 History Zolpidem [Ambien] 5 mg PO HS PRN 09/20/21 09/20/21 History Allergies Allergy/AdvReac Type Severity Reaction Status Date / Time No Known Allergies Allergy Verified 09/20/21 06:29 Physical Exam Vitals: Vital Signs Temp Pulse Pulse Resp BP BP Pulse Ox 09/20/21 08:00 98.7 F 97 16 162/84 98 09/20/21 05:52 102 H 20 159/93 98 09/20/21 05:13 97.8 F 105 H 20 161/102 100 Intake and Output 09/19/21 09/20/21 09/20/21 22:59 06:59 14:59 Other: Voiding Method Toilet Weight 61.689 kg 61.689 kg GENERAL: The patient is alert and oriented x3, not in any acute distress. Well developed, well nourished. HEENT: Pupils are round and equally reacting to light. EOMI. No scleral icterus. No conjunctival pallor. Normocephalic, atraumatic. No pharyngeal erythema. No thyromegaly. CARDIOVASCULAR: S1 and S2 present. No murmurs, rubs, or gallops. PULMONARY: Chest is clear to auscultation, no wheezing or crackles. ABDOMEN: Soft, nontender, nondistended, normoactive bowel sounds. No palpable organomegaly. MUSCULOSKELETAL: No joint swelling or deformity. EXTREMITIES: No cyanosis, clubbing, or pedal edema. NEUROLOGICAL: Gross neurological examination did not reveal any focal deficits. SKIN: No rashes. No petechiae Results CBC & Chem 7: 09/20/21 05:55 09/20/21 05:55 Labs: Abnormal Lab Results - Last 24 Hours (Table) 09/20/21 09/20/21 09/20/21 Range/Units 05:55 05:55 05:55 RBC 3.71 L (3.80-5.40) m/uL Hgb 9.6 L D (11.4-16.0) gm/dL Hct 31.7 L (34.0-46.0) % MCHC 30.4 L (31.0-37.0) g/dL RDW 18.6 H (11.5-15.5) % PT 12.8 H (9.0-12.0) sec INR 1.2 H (<1.2) BUN 39 H (7-17) mg/dL Creatinine 6.45 H (0.52-1.04) mg/dL Glucose 147 H (74-99) mg/dL Troponin I (0.000-0.034) ng/mL 09/20/21 Range/Units 05:55 RBC (3.80-5.40) m/uL Hgb (11.4-16.0) gm/dL Hct (34.0-46.0) % MCHC (31.0-37.0) g/dL RDW (11.5-15.5) % PT (9.0-12.0) sec INR (<1.2) BUN (7-17) mg/dL Creatinine (0.52-1.04) mg/dL Glucose (74-99) mg/dL Troponin I 0.092 H* (0.000-0.034) ng/mL Thrombosis Risk Factor Assmnt - Choose All That Apply Any of the Below Risk Factors Present?: Yes Each Factor Represents 1 point: Age 41-60 years Other Risk Factors: No Other congenital or acquired thrombophilia - If yes, enter type in comment: No Thrombosis Risk Factor Assessment Total Risk Factor Score: 1 Thrombosis Risk Factor Assessment Level: Low Risk Assessment and Plan Assessment: Chest pain, rule out cardiac causes Diabetes mellitus Hypertension Hyperlipidemia moderate mitral regurgitation Anemia of chronic disease End-stage renal disease on hemodialysis History of GERD History of severe arthritis History of bilateral retinal bleed Plan: This is a pleasant 46 years old female who presents with chest pain Cardiology team on the case Continue with aspirin and Plavix and monitor hemoglobin Nephrology and cardiology team on the case. Continue with hemodialysis per nephrology consult team Labs and medication were reviewed.. Continue same treatment. Continue with symptomatic treatment. Resume home medication. Monitor lytes and vitals. DVT and GI prophylaxis. Further recommendations depends on the clinical course of the patient DVT prophylaxis:Already on aspirin and Plavix GI Prophylaxis: Pepcid Prognosis is guarded
[2021-09-20 16:30] LABS: Glucose,Whole Blood 104 mg/dL (75-99)
[2021-09-20 16:34] LABS: % Iron Saturation 23.64 (12.00-45.00)
[2021-09-20] MEDS ORDERED: MD COMMUNICATION TO PHARMACY 1 EACH MISC PO PRN (17:12)
[2021-09-20] MEDS: CINACALCET 30 MG TAB PO SCH (17:16)
[2021-09-20] MEDS ORDERED: MAGNEBIND PO SCH (17:30)
[2021-09-20] MEDS: MAGNEBIND PO SCH (18:00)
[2021-09-20 20:15] LABS: Glucose,Whole Blood 115 mg/dL (75-99)
[2021-09-20] MEDS: HEPARIN SODIUM,PORCINE/PF 5,000 UNIT/0.5 ML SYRINGE SQ SCH (20:18)
[2021-09-20] MEDS ORDERED: FAMOTIDINE 20 MG/2 ML VIAL IV SCH (21:00)
[2021-09-20] MEDS ORDERED: METOPROLOL TARTRATE 12.5 MG TAB PO SCH (21:00)
[2021-09-21] MEDS: GABAPENTIN 100 MG CAP PO SCH ×4 (09:04→20:19)
[2021-09-21] MEDS: ASPIRIN 81 MG PO SCH (09:04)
[2021-09-21] MEDS: CLOPIDOGREL 75 MG TAB PO SCH (09:05)
[2021-09-21] MEDS: ISOSORBIDE MONONITRATE ER 30 MG TAB.ER.24H PO SCH (09:05)
[2021-09-21] MEDS: ATORVASTATIN 80 MG TAB PO SCH (09:05)
[2021-09-21] MEDS: METOPROLOL TARTRATE 25 MG TAB PO SCH ×2 (09:05→20:19)
[2021-09-21] MEDS: HEPARIN SODIUM,PORCINE/PF 5,000 UNIT/0.5 ML SYRINGE SQ SCH ×2 (09:05→22:15)
[2021-09-21] MEDS: CALCIUM ACETATE 667 MG TAB PO SCH ×3 (09:07→17:59)
[2021-09-21] MEDS: MIDODRINE 5 MG TAB PO SCH ×3 (09:07→17:57)
[2021-09-21] MEDS: MAGNEBIND PO SCH ×3 (09:08→17:59)
[2021-09-21] MEDS ORDERED: VERAPAMIL 2.5 MG/ML 2 ML AMP ONE (09:33)
[2021-09-21] MEDS ORDERED: LIDOCAINE 1% INJ 10MG/ML (20 ML MDV) ONE (09:33)
[2021-09-21] MEDS ORDERED: fentaNYL (PF) 50 MCG/ML 2 ML AMP ONE (09:35)
--- NOTE | 2021-09-21 09:45 | P.PN ---
Subjective Patient is seen in follow-up for end-stage renal disease. She is maintained on home hemodialysis. Chest pain improved. Hemodynamically stable. Cardiac catheterization being considered. Vital signs are stable. General: The patient appeared well nourished and normally developed. HEENT: Head exam is unremarkable. LUNGS: Breath sounds decreased. HEART: Rate and Rhythm are regular. ABDOMEN: Soft, no distention. EXTREMITITES: No edema. Objective - Vital Signs Vital signs: Vital Signs Temp 97.6 F 09/21/21 08:00 Pulse 75 09/21/21 08:00 Resp 16 09/21/21 08:00 BP 163/84 09/21/21 08:00 Pulse Ox 99 09/21/21 08:00 Intake & Output 09/20/21 09/21/21 09/21/21 18:59 06:59 18:59 Intake Total 478 970 Balance 478 970 Weight 61.689 kg Intake: Oral 478 970 Other: Voiding Method Toilet Toilet # Voids 1 - Labs CBC & Chem 7: 09/20/21 05:55 09/20/21 05:55 Labs: Abnormal Lab Results - Last 24 Hours (Table) 09/20/21 09/20/21 09/20/21 Range/Units 05:55 09:43 11:49 POC Glucose (mg/dL) 123 H (75-99) mg/dL Iron 47 L (50-170) ug/dL TIBC 199 L (228-460) ug/dL Transferrin 142.0 L (204.0-354.0) mg/dL Ferritin 1092.0 H (10.0-291.0) ng/mL Troponin I 0.095 H* (0.000-0.034) ng/mL 09/20/21 09/20/21 09/20/21 Range/Units 12:49 16:14 20:13 POC Glucose (mg/dL) 104 H 115 H (75-99) mg/dL Iron (50-170) ug/dL TIBC (228-460) ug/dL Transferrin (204.0-354.0) mg/dL Ferritin (10.0-291.0) ng/mL Troponin I 0.089 H* (0.000-0.034) ng/mL Assessment and Plan Plan: Assessment: 1. End-stage renal disease maintained on home hemodialysis. Patient is a right upper extremity AV graft. 2. Chest pain. Cardiology following. Cardiac catheterization be considered. 3. Coronary artery disease status post cardiac stenting about a month ago. 4. Anemia of chronic kidney disease. She did have nosebleed prior to admission. On Aranesp. Mild iron deficiency noted. 5. Chronic kidney disease mineral bone disease maintained on PhosLo and Sensipar. 6. Chronic hypotension maintained on midodrine. Blood pressures currently on the higher side but is lower when standing. Plan: Hemodialysis today. Hold midodrine for systolic blood pressure greater than 110. I will give her a dose of IV iron today.
[2021-09-21] MEDS ORDERED: MIDAZOLAM 2 MG/2 ML VIAL IV ONE ×2 (09:50)
[2021-09-21] MEDS ORDERED: fentaNYL (PF) 50 MCG/ML 2 ML AMP IV ONE (09:50)
[2021-09-21] MEDS ORDERED: IV FLUID CONTINUATION 950 ML IV ONE (09:51)
[2021-09-21] MEDS ORDERED: LIDOCAINE 1% INJ 10MG/ML (20 ML MDV) SQ ONE (09:57)
[2021-09-21] MEDS ORDERED: SODIUM FERRIC GLUCONAT-SUCROSE 125 MG in SODIUM CHLORIDE 0.9% 100 ML IVPB ONE (10:00)
[2021-09-21] MEDS ORDERED: HEPARIN SODIUM 1,000 UN/ML (10ML VL) ONE (10:11)
[2021-09-21] MEDS ORDERED: LIDOCAINE-PRILOCAINE 2.5-2.5% CREAM 5 GM TUBE TOPICAL STA (10:19)
[2021-09-21] MEDS ORDERED: HEPARIN SODIUM 1,000 UN/ML (10ML VL) IV ONE (10:25)
[2021-09-21] MEDS: NITROGLYCERIN 1000MCG/10ML SYRINGE INTRACORON ONE ×2 (10:41→10:45)
[2021-09-21] MEDS ORDERED: IOPAMIDOL-370 125ML BTL INJ ONE (10:45)
[2021-09-21] MEDS ORDERED: IOPAMIDOL-370 100ML BTL INJ ONE (10:52)
[2021-09-21 11:37] LABS: Glucose,Whole Blood 96 mg/dL (75-99)
--- NOTE | 2021-09-21 12:51 | P.PRCINT ---
Percutaneous Coronary Int. - Percutaneous Coronary Intervention Percutaneous Coronary Intervention: PROCEDURES PERFORMED: Left coronary angiography, PCI proximal LAD with 3.25 x 12mm Xience SIDRA INDICATION: NSTEMI, CAD PROCEDURE: After the risks, benefits and alternatives of the above mentioned procedure explained in detail with the patient, informed consent was obtained. Patient had already been taken to the catheterization lab and prepped and draped in usual fashion. A 6Fr sheath had already been placed in the femoral artery. Diagnostic images had already been performed and I had been asked to perform PCI of the LAD. The decision was made to perform PCI of the proximal LAD. Heparin was given for an ACT > 250. A 6Fr CLS 3.0 catheter was used to engage the left main. A 0.014 BMW wire was advanced into the LAD and a second 0.014 BMW wire was advanced into the distal circumflex. Balloon angioplasty was performed with a 2.75 x 8mm balloon. PCI of the proximal LAD with T stenting technique right at the ostium was performed with a 3.25 x 12mm Xience SIDRA. There was no plaque shift effecting the circumflex 50-60% lesion and this was felt best treated medically. The wire was pulled and final angiograms were performed. Pre intervention there was 90% proximal LAD stenosis with DILAN 3 flow and post intervention there was <10% stenosis and DILAN 3 flow. The right femoral angiorgam showed adequate anatomy for closure and a 6Fr Angioseal was placed with hemostasis achieved. The patient tolerated the procedure well. Patient was transported back to the post catheterization holding area in stable condition. Conscious Sedation: Patient was monitored under the direct supervision of vision of myself for conscious sedation using Versed and fentanyl for a total duration of 30 minutes FINAL IMPRESSION: 1. CAD as described above with proximal LAD 90% stenosis s/p PCI proximal LAD with 3.25 x 12mm Xience SIDRA 2. Residual circumflex 50-60% stenosis PLAN: 1. Aggressive risk factor modification per most recent ACC/AHA guidelines. 2. Continue dual antiplatelets for 12 months.
[2021-09-21] MEDS ORDERED: MAG HYDROX/AL HYDROX/SIMETH 30 ML CUP PO PRN (13:21)
[2021-09-21] MEDS ORDERED: ATROPINE SULFATE 0.1 MG/ML 10ML SYRINGE IV PRN (13:21)
[2021-09-21] MEDS ORDERED: RX INFO: IV CONTRAST WAS GIVEN 1 EACH MISC MISCELLANE PRN (13:21)
[2021-09-21] MEDS ORDERED: ZOLPIDEM 5 MG TAB PO PRN (13:21)
[2021-09-21] MEDS ORDERED: SODIUM CHLORIDE 0.9% 1,000 ML in EMPTY BAG 1 BAG IV SCH (13:30)
[2021-09-21 13:38] VITALS: BMI 24.0
--- NOTE | 2021-09-21 14:05 | P.PN ---
Subjective This is a pleasant 46 years old female with past medical history of Coronary Artery Disease status post stent placement 2 about one month ago , Heart Failure, Diabetes Mellitus, end-stage renal disease on hemodialysis care, GERD/Reflux, Hyperlipidemia, Hypertension, bilateral retinal bleeds. Presents because of chest pain after finishing her hemodialysis this morning hemodialysis which got worse after a nap. Patient pain is in the middle nonradiating felt like a lot of pressure about 4/10 and 6/10 as she describes associated with some difficulty breathing but no coughing. Patient says that she makes little urine and that she denies abdominal pain. Patient has chronic diarrhea. No new urinary complaints. She denies headache or dizziness. She does not smoke cigarettes, no illicit tracts and rarely she drinks alcohol Vitas looks stable, blood pressure is slightly elevated 162/84 Hemoglobin is 9.6, baseline is 7.4-10.8. INR 1.2, creatinine 6.4, troponin elevated 0.09, rest of the CBC, BMP and liver enzymes are unremarkable. coronavirus not dictated. Echocardiogram showed ejection fraction of 50-55% with moderate mitral regurgita tion Chest x-ray: Unchanged interstitial prominence. Correlate for possible bronchitis or chronic asthma and to exclude mild pulmonary vascular congestion. Mild patchy medial right basilar atelectasis versus early infiltrate. 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 Patient also getting hemodialysis today. Clinically stable and doing well and will be monitored for another 24 hours Objective - Vital Signs Vital signs: Vital Signs Temp 97.6 F 09/21/21 08:00 Pulse 75 09/21/21 08:00 Resp 16 09/21/21 08:00 BP 163/84 09/21/21 08:00 Pulse Ox 99 09/21/21 08:00 Intake & Output 09/20/21 09/21/21 09/21/21 18:59 06:59 18:59 Intake Total 478 970 Balance 478 970 Weight 61.689 kg Intake: Oral 478 970 Other: Voiding Method Toilet Toilet # Voids 1 - Exam GENERAL: The patient is alert and oriented x3, not in any acute distress. Well developed, well nourished. HEENT: Pupils are round and equally reacting to light. EOMI. No scleral icterus. No conjunctival pallor. Normocephalic, atraumatic. No pharyngeal erythema. No thyromegaly. CARDIOVASCULAR: S1 and S2 present. No murmurs, rubs, or gallops. PULMONARY: Chest is clear to auscultation, no wheezing or crackles. ABDOMEN: Soft, nontender, nondistended, normoactive bowel sounds. No palpable organomegaly. MUSCULOSKELETAL: No joint swelling or deformity. EXTREMITIES: No cyanosis, clubbing, or pedal edema. NEUROLOGICAL: Gross neurological examination did not reveal any focal deficits. SKIN: No rashes. no petechiae. - Labs CBC & Chem 7: 09/20/21 05:55 09/20/21 05:55 Labs: Abnormal Lab Results - Last 24 Hours (Table) 09/20/21 09/20/21 09/20/21 Range/Units 05:55 09:43 11:49 POC Glucose (mg/dL) 123 H (75-99) mg/dL Iron 47 L (50-170) ug/dL TIBC 199 L (228-460) ug/dL Transferrin 142.0 L (204.0-354.0) mg/dL Ferritin 1092.0 H (10.0-291.0) ng/mL Troponin I 0.095 H* (0.000-0.034) ng/mL 09/20/21 09/20/21 09/20/21 Range/Units 12:49 16:14 20:13 POC Glucose (mg/dL) 104 H 115 H (75-99) mg/dL Iron (50-170) ug/dL TIBC (228-460) ug/dL Transferrin (204.0-354.0) mg/dL Ferritin (10.0-291.0) ng/mL Troponin I 0.089 H* (0.000-0.034) ng/mL Assessment and Plan Assessment: Chest pain, secondary to coronary artery disease status post Dustin cath showing LAD 90% stenosis s/p PCI proximal LAD Diabetes mellitus Hypertension Hyperlipidemia moderate mitral regurgitation Anemia of chronic disease End-stage renal disease on hemodialysis History of GERD History of severe arthritis History of bilateral retinal bleed Plan: This is a pleasant 46 years old female who presents with chest pain Cardiology team on the case Continue with aspirin and Plavix and monitor hemoglobin Nephrology and cardiology team on the case. Continue with hemodialysis per nephrology consult team Labs and medication were reviewed.. Continue same treatment. Continue with symptomatic treatment. Resume home medication. Monitor lytes and vitals. DVT and GI prophylaxis. Further recommendations depends on the clinical course of the patient DVT prophylaxis:Already on aspirin and Plavix GI Prophylaxis: Pepcid Prognosis is guarded
[2021-09-21 16:31] LABS: Glucose,Whole Blood 111 mg/dL (75-99)
[2021-09-21] MEDS: CINACALCET 30 MG TAB PO SCH (17:59)
[2021-09-21 20:42] LABS: Glucose,Whole Blood 127 mg/dL (75-99)
[2021-09-21] MEDS ORDERED: FAMOTIDINE 20 MG TAB PO SCH (21:00)
[2021-09-22 00:52] VITALS: RESP 16
[2021-09-22 05:56] LABS: Glucose,Whole Blood 107 mg/dL (75-99)
[2021-09-22] MEDS: MIDODRINE 5 MG TAB PO SCH (06:04)
[2021-09-22] MEDS: CALCIUM ACETATE 667 MG TAB PO SCH (06:22)
[2021-09-22] MEDS: MAGNEBIND PO SCH (06:22)
[2021-09-22] MEDS: MORPHINE SULFATE 4 MG/ML SYRINGE IV PRN (06:23)
[2021-09-22] MEDS: ASPIRIN 81 MG PO SCH (10:04)
[2021-09-22] MEDS: ATORVASTATIN 80 MG TAB PO SCH (10:05)
[2021-09-22] MEDS: GABAPENTIN 100 MG CAP PO SCH (10:06)
[2021-09-22] MEDS: CLOPIDOGREL 75 MG TAB PO SCH (10:06)
[2021-09-22] MEDS: ISOSORBIDE MONONITRATE ER 30 MG TAB.ER.24H PO SCH (10:14)
[2021-09-22] MEDS: HEPARIN SODIUM,PORCINE/PF 5,000 UNIT/0.5 ML SYRINGE SQ SCH (10:14)
[2021-09-22] MEDS: METOPROLOL TARTRATE 25 MG TAB PO SCH (10:14)
--- NOTE | 2021-09-22 10:40 | P.PN ---
Subjective Progress Note Date: 09/22/21 Principal diagnosis: This is a 46-year-old female with ESRD on dialysis at home came in with chest pain. She underwent a cardiac catheterization yesterday and had 90% LAD stenosis which was ballooned and stented. She is chest pain-free. Appetite is somewhat poor for the last few days. No nausea vomiting. No shortness of breath. She is under workup for a transplant listing at [facility] She is known with diabetes type 2 with diabetic neuropathy. Has had bowel res ection breast surgery cholecystectomy in the past. Previously she was on peritoneal dialysis. Objective - Vital Signs Vital signs: Vital Signs Temp 98.1 F 09/22/21 08:00 Pulse 83 09/22/21 08:00 Resp 16 09/22/21 08:00 BP 130/74 09/22/21 08:00 Pulse Ox 95 09/22/21 08:00 Intake & Output 09/21/21 09/22/21 09/22/21 18:59 06:59 18:59 Intake Total 530 970 Output Total 1500 Balance -970 970 Weight 61.689 kg Intake: IV 50 Oral 480 970 Output: Hemodialysis 1500 Other: Voiding Method Toilet # Voids 1 1 Milligrams and awake alert oriented comfortable HEENT exam no JVP neck is supple no facial asymmetry Lungs are clear to auscultation percussion good air entry bilaterally Heart sounds unremarkable for any murmur rub gallop Abdomen soft nontender Extremity exam was no edema Neuro logically awake alert oriented - Labs CBC & Chem 7: 09/20/21 05:55 09/20/21 05:55 Labs: Abnormal Lab Results - Last 24 Hours (Table) 09/21/21 09/21/21 09/22/21 Range/Units 16:29 20:41 05:55 POC Glucose (mg/dL) 111 H 127 H 107 H (75-99) mg/dL Assessment and Plan Assessment: Impression 1. ESRD on dialysis at home 5 times a week 2. Admitted with chest pain cardiac cath and angioplasty and stenting of LAD 09/21/2021 3. Diabetes mellitus, 4. Anemia with hemoglobin of 9.6 etiology is yesterday, iron saturation is 23% Recommendation . 1. Patient will be discharged home, will defer to cardiology. 2. Will maintain her hemoglobin at the dialysis unit with adjustment of her Epogen
--- NOTE | 2021-09-22 11:43 | P.PN ---
Subjective Progress Note Date: 09/22/21 HISTORY OF PRESENTING ILLNESS This is a pleasant 46-year-old female past medical history significant for R ecent admission with NSTEMI in 08/2021 s/p PCI to mid LAD and Proximal left circumflex 08/17/2021, type 2 diabetes, hypertension, dyslipidemia, end-stage renal disease on hemodialysis plans for evaluation for renal transplant at [facility] with Dr. Garcia. She follows with Dr. Bauer in the office. We have been asked to see in consultation for chest pain. Patient presents emergency department with complaints of left sided and center chest pain, describes it as a heavy pressure. Yesterday she felt as if she could not take a deep breath. Her pain is non-radiating. Non-exertional. It does comes and go, however, this time she feels her pain is similar to when she presented in August however pain is now more intense then prior admission. She did have associated shortness of breath. She denies any diaphoresis, nausea, vomiting, lightheadedness, dizziness, syncope or near syncope. She denies any symptoms of orthopnea or PND. Her pain is not aggravated by taking a deep breath or movement. DIAGNOSTICS EKG sinus tachycardia, heart rate 100,T wave inversion in lead III, no acute ST ST-T wave abnormalities. Prior EKG in August 2021 with similar findings Echocardiogram this admission revealed EF 50-55%, moderate MR, mild TR Echocardiogram 08/16/2021 revealed an EF of 6065%, basal inferior LV wall hypokinetic Chest xray unchanged interstitial prominence Laboratory reviewed, troponin 0.09, proBNP 58,000, sodium 141, potassium 4.0, BUN 39, serum creatinine 6.4, covid negative, Hgb 9.6 Current home medications include aspirin 81 mg daily, Plavix 70 mg daily, atorvastatin 80 mg daily, midodrine 10 mg 3 times a day, metoprolol tartrate 12.5 mg twice a day 09/22: Yesterday, patient underwent left coronary angiography, PCI of the proximal LAD with recommendations for dual antiplatelets for 12 months and aggressive risk factor modification. Patient underwent dialysis yesterday. Right groin is soft, no hematoma. Patient denies having any chest pain or shortness of breath. Patient is cleared from cardiology for discharge with plan to follow-up with Dr. Bauer in one week. PHYSICAL EXAMINATION Vitals reviewed CONSTITUTIONAL: No apparent distress. HEENT: Head is normocephalic. Pupils are equal, round. Sclerae anicteric. Mucous membranes of the mouth are moist. No JVD. No carotid bruit. CHEST EXAMINATION: Lungs are clear to auscultation. No chest wall tenderness is noted on palpation or with deep breathing. HEART EXAMINATION: Regular rate and rhythm. S1, S2 heard. Systolic ejection murmur noted. ABDOMEN: Soft, nontender. Positive bowel sounds. EXTREMITIES: 2+ peripheral pulses, no lower extremity edema and no calf tenderness. SKIN: warm, dry NEUROLOGIC EXAMINATION: Patient is awake, alert and oriented x3. ASSESSMENT Chest pain Elevated troponin Recent NSTEMI Coronary artery disease s/p PCI to mid LAD and Proximal left circumflex 08/17/2021 Type 2 Diabetes End stage renal disease on hemodialysis Dyslipidemia Colitis previous hospitalization August 2021 Previous hospitalization patient with orthostatic hypotension PLAN -Status post PCI of the proximal LAD -Echocardiogram this admission revealed EF 50-55% -Orthostatic vital signs negative. -Continue aspirin 81 mg daily, Lipitor 80 mg daily, Plavix 75 mg daily, Imdur 30 mg daily, Lopressor 25 mg twice daily -Nephrology consulted for hemodialysis -Further recommendations based on clinical course and above workup -Patient is cleared from cardiology for discharge Nurse Practitioner note has been reviewed, I agree with a documented findings and plan of care. Patient was seen and examined. Objective - Vital Signs Vital signs: Vital Signs Temp 98.1 F 09/22/21 08:00 Pulse 83 09/22/21 08:00 Resp 16 09/22/21 08:00 BP 130/74 09/22/21 08:00 Pulse Ox 95 09/22/21 08:00 Intake & Output 09/21/21 09/22/21 09/22/21 18:59 06:59 18:59 Intake Total 530 970 Output Total 1500 Balance -970 970 Weight 61.689 kg Intake: IV 50 Oral 480 970 Output: Hemodialysis 1500 Other: Voiding Method Toilet # Voids 1 1 - Labs CBC & Chem 7: 09/20/21 05:55 09/20/21 05:55 Labs: Abnormal Lab Results - Last 24 Hours (Table) 09/21/21 09/21/21 09/22/21 Range/Units 16:29 20:41 05:55 POC Glucose (mg/dL) 111 H 127 H 107 H (75-99) mg/dL
[2021-09-22 11:57] VITALS: BP 130/67; PULSE 76; TEMP 97.8
[2021-09-22 12:01] LABS: Glucose,Whole Blood 108 mg/dL (75-99)
--- NOTE | 2021-09-22 22:40 | P.DS ---
Providers Date of admission: 09/21/21 16:22 Attending physician: Duong Rios Consults: 09/20/21 07:33 Consult Physician Routine Consulting Provider: Renaldo Schaeffer Consult Reason/Comments: Chest pain. Do you want consulting provider notified?: Yes 09/20/21 07:34 Consult Physician Routine Consulting Provider: Gloria Reyes Consult Reason/Comments: Dialysis patient. Do you want consulting provider notified?: Yes 09/21/21 13:21 Consult Physician Routine Consulting Provider: [facility] Consult Reason/Comments: Post Interventional patient Do you want consulting provider notified?: Already Contacted Primary care physician: De Hopper Hospital Course: Diagnoses: Chest pain, secondary to coronary artery disease status post Dustin cath showing LAD 90% stenosis s/p PCI proximal LAD Diabetes mellitus Hypertension Hyperlipidemia moderate mitral regurgitation Anemia of chronic disease End-stage renal disease on hemodialysis History of GERD History of severe arthritis History of bilateral retinal bleed Hospital course: This is a pleasant 46 years old -[place] female with past medical history of Coronary Artery Disease status post stent placement 2 about one month ago , Heart Failure, Diabetes Mellitus, end-stage renal disease on hemodialysis care, GERD/Reflux, Hyperlipidemia, Hypertension, bilateral retinal bleeds. Presents because of chest pain after finishing her hemodialysis 1 day prior to hospitalization. Patient evaluated by colorman and underwent cardiac cath and stent placement to the LAD. Post procedure patient denies chest pain or any other symptoms. No dyspnea coughing. No change in urine or bowel habits. No fever. Patient was cleared for discharge by colorman Patient confirmed to me that she has aspirin and Plavix at home and she does not need scripts, importance of adherence to dual antiplatelet therapy with Mr. medication besides other medication are explained as well as risks and she verbalized understanding and acceptance. Nephrology were following her for hemodialysis Problems and management plan were discussed with the patient and he verbalized understanding and acceptance Patient was found stable and can be discharged home however he needs follow-up as an outpatient. Patient was instructed to follow up with PCP Dr. Hopper within one week and patient agrees Patient also was instructed to follow up with her colorman Dr. Bauer in one week and to call and make appointment she agrees as today is weakened Physical exam Gen: patient is a AAOx3, no distress CVS: S1-S2, RRR, no murmur Lungs: B/L CTA, no wheezing Abdomen: soft, no distention, no tenderness, positive bowel sounds Extremity: no leg edema or induration Time spent more than 35 minutes Plan - Discharge Summary Discharge Rx Participant: No New Discharge Prescriptions: New Isosorbide Mononitrate ER [Imdur] 30 mg PO DAILY #30 tablet Metoprolol Tartrate [Lopressor] 25 mg PO BID #60 tab Continue rOPINIRole HCL [Requip] 1 mg PO BID Magnebind 300 2 tab PO TID-W/MEALS Gabapentin [Neurontin] 100 mg PO QID Magnebind 300 1 tab PO DAILY PRN PRN Reason: WITH A SNACK rOPINIRole HCL [Requip] 0.25 mg PO BID calcitrioL [Calcitriol] 1.5 mcg PO DAILY Lidocaine-Prilocaine Cream [Emla Cream 2.5%/2.5%] 1 applic TOPICAL DAILY PRN PRN Reason: 1-2 hours prior to dialysis Calcium Acetate [PhosLo] 667 mg PO TID-W/MEALS Atorvastatin [Lipitor] 80 mg PO DAILY 30 Days #30 tab Nitroglycerin Sl Tabs [Nitrostat] 0.4 mg SUBLINGUAL Q5M PRN #25 tab PRN Reason: Chest Pain Clopidogrel [Plavix] 75 mg PO DAILY 30 Days #30 tab Darbepoetin Tigre [Aranesp] 60 mcg SQ Q7D each Zolpidem [Ambien] 5 mg PO HS PRN PRN Reason: Insomnia Ergocalciferol (Vitamin D2) [Drisdol (50,000 Iu)] 1,250 mcg PO MO Omeprazole 20 mg PO DAILY Cinacalcet HCl [Sensipar] 90 mg PO W/SUPPER Aspirin 81 mg PO DAILY 30 Days #30 tab Midodrine [ProAmatine] 10 mg PO AC-TID 30 Days #180 tab Discontinued Metoprolol Tartrate [Lopressor] 12.5 mg PO BID Discharge Medication List Magnebind 300 2 tab PO TID-W/MEALS 03/17/19 [History] rOPINIRole HCL [Requip] 1 mg PO BID 03/17/19 [History] Gabapentin [Neurontin] 100 mg PO QID 07/16/21 [History] Calcium Acetate [PhosLo] 667 mg PO TID-W/MEALS 08/16/21 [History] Cinacalcet HCl [Sensipar] 90 mg PO W/SUPPER 08/16/21 [History] Ergocalciferol (Vitamin D2) [Drisdol (50,000 Iu)] 1,250 mcg PO MO 08/16/21 [History] Lidocaine-Prilocaine Cream [Emla Cream 2.5%/2.5%] 1 applic TOPICAL DAILY PRN 08/16/21 [History] Magnebind 300 1 tab PO DAILY PRN 08/16/21 [History] Omeprazole 20 mg PO DAILY 08/16/21 [History] calcitrioL [Calcitriol] 1.5 mcg PO DAILY 08/16/21 [History] rOPINIRole HCL [Requip] 0.25 mg PO BID 08/16/21 [History] Aspirin 81 mg PO DAILY 30 Days #30 tab 08/20/21 [Rx] Atorvastatin [Lipitor] 80 mg PO DAILY 30 Days #30 tab 08/20/21 [Rx] Clopidogrel [Plavix] 75 mg PO DAILY 30 Days #30 tab 08/20/21 [Rx] Nitroglycerin Sl Tabs [Nitrostat] 0.4 mg SUBLINGUAL Q5M PRN #25 tab 08/20/21 [Rx] Darbepoetin Tigre [Aranesp] 60 mcg SQ Q7D each 08/23/21 [Rx] Midodrine [ProAmatine] 10 mg PO AC-TID 30 Days #180 tab 08/23/21 [Rx] Zolpidem [Ambien] 5 mg PO HS PRN 09/20/21 [History] Isosorbide Mononitrate ER [Imdur] 30 mg PO DAILY #30 tablet 09/22/21 [Rx] Metoprolol Tartrate [Lopressor] 25 mg PO BID #60 tab 09/22/21 [Rx] Follow up Appointment(s)/Referral(s): De Hopper MD [Primary Care Provider] - 1-2 days Leonard Bauer MD [STAFF PHYSICIAN] - 1 Week Patient Instructions/Handouts: *Surgery [facility] - After Heart Catheterization - Systems Eng Instructions Activity/Diet/Wound Care/Special Instructions: Heart healthy diet Activity is restricted till you see your doctor We're comment continue using dual antiplatelet therapy with aspirin and Plavi x, you have enough medication at home as informed the medical team Discharge Disposition: HOME SELF-CARE
== END 2021-09-22 12:54 | disposition home or self-care (01) | DRG 246 ==
LOC: EC 05:09 → 3SCARD 07:34 → OBSVTOIN 09-21 16:22
PROVIDERS: ADMIT Hospitalist; ATTEND Hospitalist
PROC: B211YZZ Fluoroscopy of Multiple Coronary Arteries using Other Contrast (ICD-10-PCS; 2021-09-21)
PROC: B215YZZ Fluoroscopy of Left Heart using Other Contrast (ICD-10-PCS; 2021-09-21)
PROC: 027034Z Dilation of Coronary Artery, One Artery with Drug-eluting Intraluminal Device, Percutaneous Approach (ICD-10-PCS; principal; 2021-09-21 08:25)
PROC: 4A023N7 Measurement of Cardiac Sampling and Pressure, Left Heart, Percutaneous Approach (ICD-10-PCS; 2021-09-21 08:25)
DX: I25.10 Atherosclerotic heart disease of native coronary artery without angina pectoris (principal); N18.6 End stage renal disease; I13.2 Hypertensive heart and chronic kidney disease with heart failure and with stage 5 chronic kidney disease, or end stage renal disease; R04.0 Epistaxis; D63.1 Anemia in chronic kidney disease; E11.22 Type 2 diabetes mellitus with diabetic chronic kidney disease; E11.40 Type 2 diabetes mellitus with diabetic neuropathy, unspecified; I50.9 Heart failure, unspecified; I34.0 Nonrheumatic mitral (valve) insufficiency; Z20.822 Contact with and (suspected) exposure to COVID-19; G43.909 Migraine, unspecified, not intractable, without status migrainosus; Z98.42 Cataract extraction status, left eye; Z98.41 Cataract extraction status, right eye; E78.00 Pure hypercholesterolemia, unspecified; E78.5 Hyperlipidemia, unspecified; Z99.2 Dependence on renal dialysis; M89.8X9 Other specified disorders of bone, unspecified site; I95.89 Other hypotension; E61.1 Iron deficiency; I25.2 Old myocardial infarction; Z87.19 Personal history of other diseases of the digestive system; Z79.02 Long term (current) use of antithrombotics/antiplatelets; Z79.4 Long term (current) use of insulin; Z79.82 Long term (current) use of aspirin; Z79.899 Other long term (current) drug therapy; Z95.5 Presence of coronary angioplasty implant and graft; Z80.0 Family history of malignant neoplasm of digestive organs
CPT/HCPCS: 36415; 71046; 80053; 82728; 83540; 83550; 83735; 83880; 84484; 85025; 85610; 85730; 87635; 90935; 93005; 93306; 93458; 96374; 99285

== ENCOUNTER 2021-11-29 21:28 | Emergency (ER) | payer MEDICARE, BC ==
[2021-11-29 22:58] VITALS: RESP 16; TEMP 98.2
--- NOTE | 2021-11-29 23:34 | XR ---
EXAMINATION TYPE: XR KUB DATE OF EXAM: 11/29/2021 COMPARISON: 08/18/2021 HISTORY: Pain TECHNIQUE: Single view FINDINGS: There are clips from cholecystectomy. The bowel gas pattern is normal. No sign of intestina l obstruction or pneumoperitoneum. There is some bilateral extensive renal vascular calcification. IMPRESSION: Nonacute abdomen. No adverse change.
--- NOTE | 2021-11-29 23:36 | XR ---
EXAMINATION TYPE: XR chest 2V DATE OF EXAM: 11/29/2021 COMPARISON: 09/20/2021 HISTORY: Chest pain TECHNIQUE: Single view FINDINGS: There is no heart failure nor confluent pneumonic infiltrate. Costophrenic angles are clear . There is some coarsening of interstitial markings. IMPRESSION: Mild increased interstitial density at the lung bases. No pulmonary consolidation or hear t failure.
[2021-11-30] MEDS ORDERED: Acetaminophen-Codeine 300-30mg TAB PO STA (01:42)
[2021-11-30] MEDS ORDERED: ACET/COD 300 MG/30 MG STARTER PACK 6 TAB BTL PO STA (01:43)
[2021-11-30] MEDS ORDERED: IBUPROFEN 600 MG STARTER PACK 4 TAB BTL PO STA (01:43)
--- NOTE | 2021-11-30 01:44 | ED ---
Back Pain HPI - General Chief Complaint: Back Pain/Injury Stated Complaint: lower back/right side pain Time Seen by Provider: 11/30/21 01:06 Source: patient, RN notes reviewed, old records reviewed Limitations: no limitations - History of Present Illness Initial Comments: This is a 46 female DF for evaluation of back pain back pain wrapped around her back. Patient is dialysis patient. Patient has pain is worse with movement. Unsure of injury patient just concerned of pain was worse when she tries to take a cough and with contrast to move. Otherwise patient is no travel history no sick contacts no fever cough or congestion no abdominal pain MD Complaint: back pain, back injury -: hour(s) Similar Symptoms Previously: Yes Place: home Radiation: none Severity: moderate Severity scale (1-10): 4 Consistency: constant Improves With: none Worsens With: movement, sitting upright, walking Context: fall Associated Symptoms: denies other symptoms Treatments Prior to Arrival: other (none) - Related Data Home Medications Medication Instructions Recorded Confirmed Magnebind 300 2 tab PO TID-W/MEALS 03/17/19 09/20/21 rOPINIRole HCL [Requip] 1 mg PO BID 03/17/19 09/20/21 Gabapentin [Neurontin] 100 mg PO QID 07/16/21 09/20/21 Calcium Acetate [PhosLo] 667 mg PO TID-W/MEALS 08/16/21 09/20/21 Cinacalcet HCl [Sensipar] 90 mg PO W/SUPPER 08/16/21 09/20/21 Ergocalciferol (Vitamin D2) 1,250 mcg PO MO 08/16/21 09/20/21 [Drisdol (50,000 Iu)] Lidocaine-Prilocaine Cream [Emla 1 applic TOPICAL DAILY PRN 08/16/21 09/20/21 Cream 2.5%/2.5%] Magnebind 300 1 tab PO DAILY PRN 08/16/21 09/20/21 Omeprazole 20 mg PO DAILY 08/16/21 09/20/21 calcitrioL [Calcitriol] 1.5 mcg PO DAILY 08/16/21 09/20/21 rOPINIRole HCL [Requip] 0.25 mg PO BID 08/16/21 09/20/21 Zolpidem [Ambien] 5 mg PO HS PRN 09/20/21 09/20/21 Previous Rx's Medication Instructions Recorded Aspirin 81 mg PO DAILY 30 Days #30 tab 08/20/21 Atorvastatin [Lipitor] 80 mg PO DAILY 30 Days #30 tab 08/20/21 Clopidogrel [Plavix] 75 mg PO DAILY 30 Days #30 tab 08/20/21 Nitroglycerin Sl Tabs [Nitrostat] 0.4 mg SUBLINGUAL Q5M PRN #25 tab 08/20/21 Darbepoetin Tigre [Aranesp] 60 mcg SQ Q7D each 08/23/21 Midodrine [ProAmatine] 10 mg PO AC-TID 30 Days #180 tab 08/23/21 Isosorbide Mononitrate ER [Imdur] 30 mg PO DAILY #30 tablet 09/22/21 Metoprolol Tartrate [Lopressor] 25 mg PO BID #60 tab 09/22/21 Allergies Allergy/AdvReac Type Severity Reaction Status Date / Time No Known Allergies Allergy Verified 11/29/21 22:58 Review of Systems ROS Statement: Those systems with pertinent positive or pertinent negative responses have been documented in the HPI. ROS Other: All systems not noted in ROS Statement are negative. Past Medical History Past Medical History: Heart Failure, Diabetes Mellitus, Dialysis, GERD/Reflux, Hyperlipidemia, Hypertension, Renal Disease Additional Past Medical History / Comment(s): End stage RENAL FAILURE WITH CURRENT HEMODIALYSIS @ home. Hx of respiratory failure due to sepsis and was vented once, Hx of IDDM type II, diabetic neuropathy bilateral feet, hx. of anemia, hiatal hernia, [id number].Migraines. History of Any Multi-Drug Resistant Organisms: None Reported Past Surgical History: Bowel Resection, Breast Surgery, Cholecystectomy, Hernia Repair Additional Past Surgical History / Comment(s): R breast biopsy X 2 both benign, breast reduction, akosua cataracts removed HAS HAD 2 PERITONEAL DIALYSIS CATHETERS, AND 5 HEMODIALYSIS CATHETHERS, umbilical hernia repair with ischemic bowel within-small resection, colonoscopy/EGD. Removed L Ovary. Graft R arm. Past Anesthesia/Blood Transfusion Reactions: Motion Sickness, Postoperative Nausea & Vomiting (PONV) Additional Past Anesthesia/Blood Transfusion Reaction / Comment(s): no blood products-pt is a [employer] Date of Last Stent Placement:: 08/17/21 Past Psychological History: No Psychological Hx Reported Smoking Status: Never smoker Past Alcohol Use History: Occasional Past Drug Use History: None Reported - Past Family History Mother Family Medical History: Osteoarthritis (OA) Additional Family Medical History / Comment(s): . Father Family Medical History: Cancer Additional Family Medical History / Comment(s): Father of LIVER cancer at age 61 yrs. General Exam Limitations: no limitations General appearance: alert, in no apparent distress Head exam: Present: atraumatic, normocephalic, normal inspection Eye exam: Present: normal appearance, PERRL, EOMI. Absent: scleral icterus, conjunctival injection, periorbital swelling ENT exam: Present: normal exam, mucous membranes moist Neck exam: Present: normal inspection. Absent: tenderness, meningismus, lymphadenopathy Respiratory exam: Present: normal lung sounds bilaterally. Absent: respiratory distress, wheezes, rales, rhonchi, stridor Cardiovascular Exam: Present: regular rate, normal rhythm, normal heart sounds. Absent: systolic murmur, diastolic murmur, rubs, gallop, clicks GI/Abdominal exam: Present: soft, normal bowel sounds. Absent: distended, tenderness, guarding, rebound, rigid Extremities exam: Present: normal inspection, full ROM, normal capillary refill. Absent: tenderness, pedal edema, joint swelling, calf tenderness Back exam: Present: normal inspection Neurological exam: Present: alert, oriented X3, CN II-XII intact Psychiatric exam: Present: normal affect, normal mood Skin exam: Present: warm, dry, intact, normal color. Absent: rash Course Vital Signs 11/29/21 11/30/21 22:56 02:30 Temperature 98.2 F Pulse Rate 94 70 Respiratory 16 16 Rate Blood Pressure 132/77 128/68 O2 Sat by Pulse 99 95 Oximetry - Reevaluation(s) Reevaluation #1: 11/30/21 Medical record is reviewed Patient symptoms are improving here in the emergency department Patient is informed of results and questions have been answered Medical Decision Making - Medical Decision Making 46 female to the emergency department for evaluation of pain, back pain thoracic back pain wrapping around her back. Patient has no history of back pain no current injury noted. - Lab Data Result diagrams: 11/30/21 02:12 11/30/21 02:12 Lab Results 11/30/21 11/30/21 Range/Units 02:12 02:12 WBC 9.8 (3.8-10.6) k/uL RBC 4.13 (3.80-5.40) m/uL Hgb 10.0 L (11.4-16.0) gm/dL Hct 34.4 (34.0-46.0) % MCV 83.4 (80.0-100.0) fL MCH 24.1 L (25.0-35.0) pg MCHC 28.9 L (31.0-37.0) g/dL RDW 19.5 H (11.5-15.5) % Plt Count 353 (150-450) k/uL MPV 7.9 Neutrophils % 74 % Lymphocytes % 14 % Monocytes % 8 % Eosinophils % 2 % Basophils % 1 % Neutrophils # 7.2 (1.3-7.7) k/uL Lymphocytes # 1.3 (1.0-4.8) k/uL Monocytes # 0.8 (0-1.0) k/uL Eosinophils # 0.2 (0-0.7) k/uL Basophils # 0.1 (0-0.2) k/uL Hypochromasia Marked Anisocytosis Slight Microcytosis Slight Sodium 139 (137-145) mmol/L Potassium 4.6 (3.5-5.1) mmol/L Chloride 101 (98-107) mmol/L Carbon Dioxide 19 L (22-30) mmol/L Anion Gap 19 mmol/L BUN 64 H (7-17) mg/dL Creatinine 12.73 H* (0.52-1.04) mg/dL Est GFR (CKD-EPI)AfAm 4 (>60 ml/min/1.73 sqM) Est GFR (CKD-EPI)NonAf 3 (>60 ml/min/1.73 sqM) Glucose 97 (74-99) mg/dL Calcium 8.8 (8.4-10.2) mg/dL Total Bilirubin 0.4 (0.2-1.3) mg/dL AST 13 L (14-36) U/L ALT 6 (4-34) U/L Alkaline Phosphatase 54 (38-126) U/L Total Protein 6.5 (6.3-8.2) g/dL Albumin 3.4 L (3.5-5.0) g/dL - Radiology Data Radiology results: report reviewed (Chest x-ray KUB is negative for acute disease), image reviewed Disposition Clinical Impression: Mechanical back pain, Thoracic back pain Disposition: HOME SELF-CARE Condition: Good Instructions (If sedation given, give patient instructions): Acute Low Back Pain (ED) Is patient prescribed a controlled substance at d/c from ED?: No Referrals: De Hopper MD [Primary Care Provider] - 1-2 days
[2021-11-30] MEDS: KETOROLAC 15 MG/ML 1 ML VIAL IM STA ×2 (02:16→02:28)
[2021-11-30 02:19] LABS: Anisocytosis Slight; Basophils # (A) 0.1 k/uL (0-0.2); Basophils % (A) 1 %; Eosinophils # (A) 0.2 k/uL (0-0.7); Eosinophils % (A) 2 %; HCT 34.4 % (34.0-46.0); Hypochromasia Marked; Lymphocytes # (A) 1.3 k/uL (1.0-4.8); Lymphocytes % (A) 14 %; MCH 24.1 pg (25.0-35.0); MCHC 28.9 g/dL (31.0-37.0); MCV 83.4 fL (80.0-100.0); Mean Platelet Volume 7.9; Microcytosis Slight; Monocytes # (A) 0.8 k/uL (0-1.0); Monocytes % (A) 8 %; Neutrophils # (A) 7.2 k/uL (1.3-7.7); Neutrophils % (A) 74 %; Platelet Count 353 k/uL (150-450); RBC 4.13 m/uL (3.80-5.40); RDW 19.5 % (11.5-15.5); WBC 9.8 k/uL (3.8-10.6)
[2021-11-30] MEDS ORDERED: HYDROmorphone 1 MG/ML 1 ML SYRINGE IVP STA (02:20)
[2021-11-30 02:28] LABS: Albumin 3.4 g/dL (3.5-5.0); Calcium 8.8 mg/dL (8.4-10.2); Potassium 4.6 mmol/L (3.5-5.1); Total Bilirubin 0.4 mg/dL (0.2-1.3); Total Protein 6.5 g/dL (6.3-8.2)
[2021-11-30 02:31] VITALS: BP 128/68; PULSE 70
== END 2021-11-30 03:04 | disposition home or self-care (01) ==
LOC: EC 21:28
DX: M54.6 Pain in thoracic spine (principal); I13.2 Hypertensive heart and chronic kidney disease with heart failure and with stage 5 chronic kidney disease, or end stage renal disease; I50.9 Heart failure, unspecified; E11.22 Type 2 diabetes mellitus with diabetic chronic kidney disease; E11.36 Type 2 diabetes mellitus with diabetic cataract; E11.40 Type 2 diabetes mellitus with diabetic neuropathy, unspecified; E78.5 Hyperlipidemia, unspecified; K21.9 Gastro-esophageal reflux disease without esophagitis; N18.6 End stage renal disease; Z99.2 Dependence on renal dialysis; Z79.899 Other long term (current) drug therapy; W19.XXXA Unspecified fall, initial encounter
CPT/HCPCS: 36415; 80053; 85025; 71046; 74018; 99283; 96374; J1170

== ENCOUNTER 2022-01-29 15:53 | Inpatient (IN) | payer MEDICARE, BC ==
--- NOTE | 2022-01-29 18:04 | XR ---
EXAMINATION TYPE: XR chest 2V DATE OF EXAM: 01/29/2022 COMPARISON: 11/29/2021. HISTORY: Short of breath TECHNIQUE: 2 views FINDINGS: Heart size is fairly normal. There is some pulmonary interstitial edema. There is slight bl unting of the costophrenic angles. There is stent apparently in the right brachial artery. There are no hilar masses. Thoracic aorta is atheromatous. IMPRESSION: There is pulmonary interstitial edema and pleural fluid which is mostly new compared to t he old exam and could be acute heart failure
[2022-01-29] MEDS ORDERED: GABAPENTIN 300 MG CAP PO STA (21:58)
[2022-01-29] MEDS ORDERED: ASPIRIN 81 MG PO STA (21:59)
--- NOTE | 2022-01-29 22:12 | ED ---
General Adult HPI - General Source: patient, RN notes reviewed, old records reviewed Mode of arrival: ambulatory Limitations: no limitations <Rafa Wallis - Last Filed: 01/29/22 22:50> <Remy Patel - Last Filed: 01/30/22 01:21> - General Chief complaint: Shortness of Breath Stated complaint: Chest Pain/Pressure, Recent Heart History Time Seen by Provider: 01/29/22 21:30 - History of Present Illness Initial comments: She is a 46-year-old female with past medical history remarkable for diabetes, heart failure, ESRD on hemodialysis at home who presents emergency Department complaining of a 3 to four-day history of worsening exertional shortness of breath. States it has been worse on exertion. Has had a nonproductive cough. Endorses orthopnea. Denies PND. States she has not changed much fluid she is taking off with each dialysis run which she manages at home by herself. Has not missed any dialysis runs. Occasionally endorses a chest pressure sensation. Denies any lower extremity edema that is worse than typical. Denies nausea, vomiting, abdominal pain. Denies abdominal distention. No other acute complaints at this time. His no fevers, chills, cough, sick contacts. Presents for further evaluation regarding her shortness of breath.Patient does have a history of stent placement. (Rafa Wallis) - Related Data Home Medications Medication Instructions Recorded Confirmed Magnebind 300 2 tab PO TID-W/MEALS 03/17/19 09/20/21 rOPINIRole HCL [Requip] 1 mg PO BID 03/17/19 09/20/21 Gabapentin [Neurontin] 100 mg PO QID 07/16/21 09/20/21 Calcium Acetate [PhosLo] 667 mg PO TID-W/MEALS 08/16/21 09/20/21 Cinacalcet HCl [Sensipar] 90 mg PO W/SUPPER 08/16/21 09/20/21 Ergocalciferol (Vitamin D2) 1,250 mcg PO MO 08/16/21 09/20/21 [Drisdol (50,000 Iu)] Lidocaine-Prilocaine Cream [Emla 1 applic TOPICAL DAILY PRN 08/16/21 09/20/21 Cream 2.5%/2.5%] Magnebind 300 1 tab PO DAILY PRN 08/16/21 09/20/21 Omeprazole 20 mg PO DAILY 08/16/21 09/20/21 calcitrioL [Calcitriol] 1.5 mcg PO DAILY 08/16/21 09/20/21 rOPINIRole HCL [Requip] 0.25 mg PO BID 08/16/21 09/20/21 Zolpidem [Ambien] 5 mg PO HS PRN 09/20/21 09/20/21 Previous Rx's Medication Instructions Recorded Aspirin 81 mg PO DAILY 30 Days #30 tab 08/20/21 Atorvastatin [Lipitor] 80 mg PO DAILY 30 Days #30 tab 08/20/21 Clopidogrel [Plavix] 75 mg PO DAILY 30 Days #30 tab 08/20/21 Nitroglycerin Sl Tabs [Nitrostat] 0.4 mg SUBLINGUAL Q5M PRN #25 tab 08/20/21 Darbepoetin Tigre [Aranesp] 60 mcg SQ Q7D each 08/23/21 Midodrine [ProAmatine] 10 mg PO AC-TID 30 Days #180 tab 08/23/21 Isosorbide Mononitrate ER [Imdur] 30 mg PO DAILY #30 tablet 09/22/21 Metoprolol Tartrate [Lopressor] 25 mg PO BID #60 tab 09/22/21 Allergies Allergy/AdvReac Type Severity Reaction Status Date / Time No Known Allergies Allergy Verified 01/29/22 16:09 Review of Systems ROS Other: All systems not noted in ROS Statement are negative. <Rafa Wallis - Last Filed: 01/29/22 22:50> ROS Other: All systems not noted in ROS Statement are negative. <Remy Patel - Last Filed: 01/30/22 01:21> ROS Statement: Those systems with pertinent positive or pertinent negative responses have been documented in the HPI. Review of Systems: CONST: Denies fever EYES: Denies blurry vision ENT: Denies nasal congestion C/V: Endorses intermittent chest pain. RESP: Endorses shortness of breath GI: Denies abdominal pain : Denies dysuria SKIN: Denies rash. MSK: Denies joint pain. NEURO: Denies headache (Rafa Wallis) Past Medical History Past Medical History: Heart Failure, Diabetes Mellitus, Dialysis, GERD/Reflux, Hyperlipidemia, Hypertension, Renal Disease Additional Past Medical History / Comment(s): End stage RENAL FAILURE WITH CURRENT HEMODIALYSIS @ home. Hx of respiratory failure due to sepsis and was vented once, Hx of IDDM type II, diabetic neuropathy bilateral feet, hx. of anemia, hiatal hernia, [id number].Migraines. History of Any Multi-Drug Resistant Organisms: None Reported Past Surgical History: Bowel Resection, Breast Surgery, Cholecystectomy, Hernia Repair Additional Past Surgical History / Comment(s): R breast biopsy X 2 both benign, breast reduction, akosua cataracts removed HAS HAD 2 PERITONEAL DIALYSIS CATHETERS, AND 5 HEMODIALYSIS CATHETHERS, umbilical hernia repair with ischemic bowel within-small resection, colonoscopy/EGD. Removed L Ovary. Graft R arm. 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 Father Family Medical History: Cancer Additional Family Medical History / Comment(s): Father of LIVER cancer at age 61 yrs. <Rafa Wallis - Last Filed: 01/29/22 22:50> General Exam Limitations: no limitations <Rafa Wallis - Last Filed: 01/29/22 22:50> General appearance: anxious <Remy Patel - Last Filed: 01/30/22 01:21> - General Exam Comments Initial Comments: General: Appears in no acute distress. HEAD: Normal with no signs of head trauma. EYES: PERRLA, EOMI, conjunctiva normal, no discharge. ENT: Hearing grossly intact, normal oropharynx. RESPIRATORY: Clear breath sounds bilaterally. No wheezes, rales, or rhonchi. No hypoxia. No increased work of breathing. C/V: Regular rate and rhythm. S1 and S2 auscultated, no edema, peripheral pulses 2+ and intact throughout right upper extremity AV fistulas a palpable thrill and audible bruit. ABD: Abd is soft, nontender, nondistended EXT: Normal range of motion, no obvious deformity SKIN: No rashes or lesions observed on exposed skin. NEURO: Alert and oriented 4. (Rafa Wallis) Course <Remy Patel - Last Filed: 01/30/22 01:21> Vital Signs 01/29/22 01/30/22 16:05 00:37 Temperature 97.9 F Pulse Rate 88 83 Respiratory 18 18 Rate Blood Pressure 115/69 114/70 O2 Sat by Pulse 97 92 L Oximetry - Reevaluation(s) Reevaluation #1: 01/30/22 01:20 medical records reviewed (Remy Patel) Reevaluation #2: 01/30/22 01:20 Patient informed results and questions answered (Remy Patel) - Consultations Consultation #1: Spoke with Dr. MORELAND to agrees to admit this patient (Remy Patel) Medical Decision Making - EKG Data -: EKG Interpreted by Me <Rafa Wallis - Last Filed: 01/29/22 22:50> - Lab Data Result diagrams: 01/29/22 23:18 01/29/22 23:18 - Radiology Data Radiology results: report reviewed (Chest x-rays positive for pulmonary edema), image reviewed <Remy Patel - Last Filed: 01/30/22 01:21> - Medical Decision Making Based on the patient's presentation and physical exam, I'm concerned for was likely volume overload status for the patient. She has orthopnea as well as a nonproductive cough. Manages her dialysis at home by herself. Chest x-ray which is already obtained in triage revealed interstitial edema and pleural fluid which is likely secondary to worsening heart failure. I discussed this with the patient. We will obtain laboratory studies at this time. There was a delay this patient waited in triage due to large ED volumes. EKG was obtained and showed no acute cardiopulmonary process. Workup is pending. She denies missing any runs of dialysis. Multiple attempts were made by nursing staff to obtain IV access and bloodwork. All unsuccessful. I was able to obtain labs via US IV. It is the end of my shift. Care is transitioned to Dr. Patel pending lab studies. (Rafa Wallis) 46 female who does home dialysis and fluid overload state. Patient will be admitted for evaluation by nephrology (Remy Patel) - Lab Data Lab Results 01/29/22 01/29/22 01/29/22 Range/Units 22:57 22:57 23:18 WBC 5.5 (3.8-10.6) k/uL RBC 3.17 L (3.80-5.40) m/uL Hgb 8.1 L D (11.4-16.0) gm/dL Hct 26.6 L (34.0-46.0) % MCV 83.9 (80.0-100.0) fL MCH 25.6 (25.0-35.0) pg MCHC 30.5 L (31.0-37.0) g/dL RDW 19.8 H (11.5-15.5) % Plt Count 212 (150-450) k/uL MPV 8.9 Neutrophils % 74 % Lymphocytes % 17 % Monocytes % 6 % Eosinophils % 1 % Basophils % 0 % Neutrophils # 4.0 (1.3-7.7) k/uL Lymphocytes # 0.9 L (1.0-4.8) k/uL Monocytes # 0.3 (0-1.0) k/uL Eosinophils # 0.1 (0-0.7) k/uL Basophils # 0.0 (0-0.2) k/uL Hypochromasia Marked Anisocytosis Slight Microcytosis Slight PT (9.0-12.0) sec INR (<1.2) APTT (22.0-30.0) sec Sodium (137-145) mmol/L Potassium (3.5-5.1) mmol/L Chloride (98-107) mmol/L Carbon Dioxide (22-30) mmol/L Anion Gap mmol/L BUN (7-17) mg/dL Creatinine (0.52-1.04) mg/dL Est GFR (CKD-EPI)AfAm (>60 ml/min/1.73 sqM) Est GFR (CKD-EPI)NonAf (>60 ml/min/1.73 sqM) Glucose (74-99) mg/dL Calcium (8.4-10.2) mg/dL Total Bilirubin (0.2-1.3) mg/dL AST (14-36) U/L ALT (4-34) U/L Alkaline Phosphatase (38-126) U/L Troponin I (0.000-0.034) ng/mL NT-Pro-B Natriuret Pep pg/mL Total Protein (6.3-8.2) g/dL Albumin (3.5-5.0) g/dL Coronavirus (PCR) Not Detected (Not Detectd) Influenza Type A RNA Not Detected (Not Detectd) Influenza Type B (PCR) Not Detected (Not Detectd) 01/29/22 01/29/22 01/29/22 Range/Units 23:18 23:18 23:18 WBC (3.8-10.6) k/uL RBC (3.80-5.40) m/uL Hgb (11.4-16.0) gm/dL Hct (34.0-46.0) % MCV (80.0-100.0) fL MCH (25.0-35.0) pg MCHC (31.0-37.0) g/dL RDW (11.5-15.5) % Plt Count (150-450) k/uL MPV Neutrophils % % Lymphocytes % % Monocytes % % Eosinophils % % Basophils % % Neutrophils # (1.3-7.7) k/uL Lymphocytes # (1.0-4.8) k/uL Monocytes # (0-1.0) k/uL Eosinophils # (0-0.7) k/uL Basophils # (0-0.2) k/uL Hypochromasia Anisocytosis Microcytosis PT 14.7 H (9.0-12.0) sec INR 1.4 H (<1.2) APTT 25.5 (22.0-30.0) sec Sodium 136 L (137-145) mmol/L Potassium 3.3 L (3.5-5.1) mmol/L Chloride 98 (98-107) mmol/L Carbon Dioxide 27 (22-30) mmol/L Anion Gap 11 mmol/L BUN 30 H (7-17) mg/dL Creatinine 6.12 H (0.52-1.04) mg/dL Est GFR (CKD-EPI)AfAm 9 (>60 ml/min/1.73 sqM) Est GFR (CKD-EPI)NonAf 8 (>60 ml/min/1.73 sqM) Glucose 101 H (74-99) mg/dL Calcium 8.7 (8.4-10.2) mg/dL Total Bilirubin 0.4 (0.2-1.3) mg/dL AST 13 L (14-36) U/L ALT 7 (4-34) U/L Alkaline Phosphatase 70 (38-126) U/L Troponin I 0.380 H* (0.000-0.034) ng/mL NT-Pro-B Natriuret Pep pg/mL Total Protein 6.3 (6.3-8.2) g/dL Albumin 3.6 (3.5-5.0) g/dL Coronavirus (PCR) (Not Detectd) Influenza Type A RNA (Not Detectd) Influenza Type B (PCR) (Not Detectd) 01/29/22 Range/Units 23:18 WBC (3.8-10.6) k/uL RBC (3.80-5.40) m/uL Hgb (11.4-16.0) gm/dL Hct (34.0-46.0) % MCV (80.0-100.0) fL MCH (25.0-35.0) pg MCHC (31.0-37.0) g/dL RDW (11.5-15.5) % Plt Count (150-450) k/uL MPV Neutrophils % % Lymphocytes % % Monocytes % % Eosinophils % % Basophils % % Neutrophils # (1.3-7.7) k/uL Lymphocytes # (1.0-4.8) k/uL Monocytes # (0-1.0) k/uL Eosinophils # (0-0.7) k/uL Basophils # (0-0.2) k/uL Hypochromasia Anisocytosis Microcytosis PT (9.0-12.0) sec INR (<1.2) APTT (22.0-30.0) sec Sodium (137-145) mmol/L Potassium (3.5-5.1) mmol/L Chloride (98-107) mmol/L Carbon Dioxide (22-30) mmol/L Anion Gap mmol/L BUN (7-17) mg/dL Creatinine (0.52-1.04) mg/dL Est GFR (CKD-EPI)AfAm (>60 ml/min/1.73 sqM) Est GFR (CKD-EPI)NonAf (>60 ml/min/1.73 sqM) Glucose (74-99) mg/dL Calcium (8.4-10.2) mg/dL Total Bilirubin (0.2-1.3) mg/dL AST (14-36) U/L ALT (4-34) U/L Alkaline Phosphatase (38-126) U/L Troponin I (0.000-0.034) ng/mL NT-Pro-B Natriuret Pep 213392 pg/mL Total Protein (6.3-8.2) g/dL Albumin (3.5-5.0) g/dL Coronavirus (PCR) (Not Detectd) Influenza Type A RNA (Not Detectd) Influenza Type B (PCR) (Not Detectd) - EKG Data EKG Comments: 12-lead Electrocardiogram Interpretation Note EKG was reviewed and interpreted by myself. 12-lead ECG performed at 1728 is interpreted by me as revealing normal sinus rhythm at a rate of 88 beats per minute. Marion is normal. DE interval is 176 ms, QRS durations 116 ms, QTc is 48 4 ms.. There were no ST or T wave abnormalities to suggest myocardial ischemia or injury. R wave progression across the precordium was satisfactory. By my interpretation this EKG is non-diagnostic for acute ischemia. (Rafa Wallis) Disposition <Rafa Wallis - Last Filed: 01/29/22 22:50> Is patient prescribed a controlled substance at d/c from ED?: No <Remy Patel - Last Filed: 01/30/22 01:21> Clinical Impression: Anemia, Chronic renal failure, Systolic congestive heart failure, Acute pulmonary edema, Renal failure syndrome, Non-STEMI (non-ST elevated myocardial infarction), Acute renal failure Disposition: ADMITTED IP TO THIS HOSP Condition: Fair Referrals: De Hopper MD [Primary Care Provider] - 1-2 days
[2022-01-30 00:03] LABS: Anisocytosis Slight; Basophils % (A) 0 %; Eosinophils # (A) 0.1 k/uL (0-0.7); Eosinophils % (A) 1 %; HCT 26.6 % (34.0-46.0); Hypochromasia Marked; Lymphocytes # (A) 0.9 k/uL (1.0-4.8); Lymphocytes % (A) 17 %; MCH 25.6 pg (25.0-35.0); MCHC 30.5 g/dL (31.0-37.0); MCV 83.9 fL (80.0-100.0); Mean Platelet Volume 8.9; Microcytosis Slight; Monocytes # (A) 0.3 k/uL (0-1.0); Monocytes % (A) 6 %; Neutrophils % (A) 74 %; Platelet Count 212 k/uL (150-450); RBC 3.17 m/uL (3.80-5.40); RDW 19.8 % (11.5-15.5); WBC 5.5 k/uL (3.8-10.6)
[2022-01-30 00:04] LABS: INR 1.4 (<1.2); Partial Thromboplastin Time 25.5 sec (22.0-30.0); Prothrombin Time 14.7 sec (9.0-12.0)
[2022-01-30] MEDS ORDERED: MORPHINE SULFATE 4 MG/ML SYRINGE IVP STA (00:05)
[2022-01-30 00:14] LABS: Albumin 3.6 g/dL (3.5-5.0); Calcium 8.7 mg/dL (8.4-10.2); Potassium 3.3 mmol/L (3.5-5.1); Total Bilirubin 0.4 mg/dL (0.2-1.3); Total Protein 6.3 g/dL (6.3-8.2)
[2022-01-30 00:17] LABS: HGB 8.1 gm/dL (11.4-16.0)
[2022-01-30] MEDS ORDERED: ONDANSETRON 4 MG/2 ML VIAL IVP PRN (01:21)
[2022-01-30] MEDS ORDERED: NALOXONE 0.4 MG/ML 1 ML VIAL IV PRN (01:21)
[2022-01-30] MEDS ORDERED: ASPIRIN 81 MG PO SCH (09:00)
[2022-01-30] MEDS ORDERED: ISOSORBIDE MONONITRATE ER 30 MG TAB.ER.24H PO SCH (09:00)
[2022-01-30] MEDS: ATORVASTATIN 80 MG TAB PO SCH (10:00)
[2022-01-30] MEDS: METOPROLOL TARTRATE 25 MG TAB PO SCH ×2 (10:00→21:14)
[2022-01-30] MEDS: CLOPIDOGREL 75 MG TAB PO SCH (10:01)
[2022-01-30] MEDS: MORPHINE SULFATE 4 MG/ML SYRINGE IVP PRN ×2 (10:04→23:00)
--- NOTE | 2022-01-30 11:24 | P.CRDCN ---
History of Present Illness History of present illness: This is a pleasant 46-year-old female past medical history significant for coronary artery disease s/p PCI to mid LAD and Proximal left circumflex 08/17/2021 and PCI LAD in 09/2021, type 2 diabetes, hypertension, dyslipidemia, end-stage renal disease on hemodialysis plans for evaluation for renal transplant at [facility]. She follows with Dr. Bauer in the office. We have been asked to see in consultation for congestive heart failure. Patient presents emergency department with complaints of chest pain, epigastric pain, nausea, some cough, some mild shortness of breath. She states that she was doing her dialysis 2 days ago and noticed her blood pressure to be low, she saw some improvement in her blood pressure with midodrine. She was unable to achieve her dry weight at home/is not able to remove enough fluid during dialysis due to her low blood pressure. Her chest pain is nonradiating, nonexertional. No specific alleviating factors. It is aggravated by cough. She believes her nausea is related to morphine she was given. Her epigastric/chest pain has improved. DIAGNOSTICS EKG sinus rhythm HR 88,T wave inversion in lead III, no acute ST ST-T wave abnormalities. Prior EKG with similar findings Echocardiogram 09/2021 revealed EF 50-55%, moderate MR, mild TR Chest xray revealed pulmonary interstitial edema, pleural fluid is new compared to old exam Laboratory reviewed, troponin 0.3x 3, sodium 136, potassium 3.3, BUN 30, serum creatinine 6.1, proBNP [id number], WBC 5.5, troponin 0.1, platelets 212 Current home medications include aspirin 81 mg daily, Plavix 70 mg daily, atorvastatin 80 mg daily, midodrine 10 mg 3 times a day, metoprolol tartrate 12.5 mg twice a day Cardiac catheterization 09/2021 revealed- CAD with proximal LAD 90% stenosis s/p PCI proximal LAD, Residual circumflex 50-60% stenosis REVIEW OF SYSTEMS At the time of my exam: CONSTITUTIONAL: Denies fever or chills. CARDIOVASCULAR: +chest pain, Denies shortness of breath, orthopnea, PND or palpitations. RESPIRATORY: +cough GASTROINTESTINAL: +epigastric pain Denies abdominal pain, diarrhea, constipation, nausea or vomiting. MUSCULOSKELETAL: Denies myalgias. NEUROLOGIC: Denies numbness, tingling, headache or weakness. ENDOCRINE: Denies fatigue, weight change, polydipsia or polyurina. GENITOURINARY: Denies burning, hematuria or urgency with micturation. HEMATOLOGIC: +history of anemia Denies bleeding. PHYSICAL EXAMINATION Vitals reviewed CONSTITUTIONAL: No apparent distress. HEENT: Head is normocephalic. Pupils are equal, round. Sclerae anicteric. Mucous membranes of the mouth are moist. No JVD. No carotid bruit. CHEST EXAMINATION: Lungs mild crackles bilateral bases to auscultation. No chest wall tenderness is noted on palpation or with deep breathing. HEART EXAMINATION: Regular rate and rhythm. S1, S2 heard. Systolic ejection murmur noted. ABDOMEN: Soft, nontender. Positive bowel sounds. EXTREMITIES: 2+ peripheral pulses, no lower extremity edema and no calf tenderness. SKIN: warm, dry NEUROLOGIC EXAMINATION: Patient is awake, alert and oriented x3. ASSESSMENT Chest and epigastric pain, atypical, worse with cough Shortness of breath, likely related to overload secondary to not achieving dry weight during last dialysis secondary to hypotension at home Elevated troponin, secondary to renal failure End stage renal disease on hemodialysis Coronary artery disease s/p PCI to mid LAD and Proximal left circumflex 08/17/2021 Type 2 Diabetes Dyslipidemia PLAN -Nephrology consulted for dialysis plan for HD today -Continue home aspirin, statin, plavix, metoprolol tartrate -Further recommendations based on clinical course Thank you kindly for this consultation. Nurse Practitioner note has been reviewed, I agree with a documented findings and plan of care. Patient was seen and examined. Past Medical History Past Medical History: Heart Failure, Diabetes Mellitus, Dialysis, GERD/Reflux, Hyperlipidemia, Hypertension, Renal Disease Additional Past Medical History / Comment(s): End stage RENAL FAILURE WITH CURRENT HEMODIALYSIS @ home. Hx of respiratory failure due to sepsis and was vented once, Hx of IDDM type II, diabetic neuropathy bilateral feet, hx. of anemia, hiatal hernia, [id number].Migraines. History of Any Multi-Drug Resistant Organisms: None Reported Past Surgical History: Bowel Resection, Breast Surgery, Cholecystectomy, Hernia Repair Additional Past Surgical History / Comment(s): R breast biopsy X 2 both benign, breast reduction, akosua cataracts removed HAS HAD 2 PERITONEAL DIALYSIS CATHETERS, AND 5 HEMODIALYSIS CATHETHERS, umbilical hernia repair with ischemic bowel with in-small resection, colonoscopy/EGD. Removed L Ovary. Graft R arm. Past Anesthesia/Blood Transfusion Reactions: Motion Sickness, Postoperative Nausea & Vomiting (PONV) Additional Past Anesthesia/Blood Transfusion Reaction / Comment(s): no blood products-pt is a [employer] Date of Last Stent Placement:: 08/17/21 Past Psychological History: No Psychological Hx Reported Smoking Status: Never smoker Past Alcohol Use History: Occasional Past Drug Use History: None Reported - Past Family History Mother Family Medical History: Osteoarthritis (OA) Additional Family Medical History / Comment(s): . Father Family Medical History: Cancer Additional Family Medical History / Comment(s): Father of LIVER cancer at age 61 yrs. Medications and Allergies Home Medications Medication Instructions Recorded Confirmed Type Magnebind 300 1 tab PO TID-W/MEALS 03/17/19 01/30/22 History rOPINIRole HCL [Requip] 1 mg PO BID 03/17/19 01/30/22 History Gabapentin [Neurontin] 200 mg PO DAILY@1200 07/16/21 01/30/22 History Calcium Acetate [PhosLo] 1,334 mg PO TID-W/MEALS 08/16/21 01/30/22 History Cinacalcet HCl [Sensipar] 90 mg PO MOTUWETHFR 08/16/21 01/30/22 History Ergocalciferol (Vitamin D2) 1,250 mcg PO MO 08/16/21 01/30/22 History [Drisdol (50,000 Iu)] Lidocaine-Prilocaine Cream [Emla 1 applic TOPICAL DAILY PRN 08/16/21 01/30/22 History Cream 2.5%/2.5%] Omeprazole 20 mg PO DAILY 08/16/21 01/30/22 History calcitrioL [Calcitriol] 1 mcg PO DAILY 08/16/21 01/30/22 History rOPINIRole HCL [Requip] 0.25 mg PO BID 08/16/21 01/30/22 History Atorvastatin [Lipitor] 80 mg PO DAILY 30 Days #30 tab 08/20/21 01/30/22 Rx Clopidogrel [Plavix] 75 mg PO DAILY 30 Days #30 tab 08/20/21 01/30/22 Rx Nitroglycerin Sl Tabs [Nitrostat] 0.4 mg SUBLINGUAL Q5M PRN #25 tab 08/20/21 01/30/22 Rx Zolpidem [Ambien] 5 mg PO HS PRN 09/20/21 01/30/22 History Metoprolol Tartrate [Lopressor] 25 mg PO BID #60 tab 09/22/21 01/30/22 Rx Aspirin 81 mg PO DAILY 01/30/22 01/30/22 History Cyclobenzaprine [Flexeril] 10 mg PO TID PRN 01/30/22 01/30/22 History Gabapentin [Neurontin] 400 mg PO HS 01/30/22 01/30/22 History Midodrine [ProAmatine] 5 mg PO BID PRN 01/30/22 01/30/22 History Allergies Allergy/AdvReac Type Severity Reaction Status Date / Time No Known Allergies Allergy Verified 01/30/22 09:01 Physical Exam Vitals: Vital Signs Temp Pulse Resp BP Pulse Ox 01/30/22 04:22 97.4 F L 74 16 101/60 98 01/30/22 00:37 83 18 114/70 92 L 01/29/22 16:05 97.9 F 88 18 115/69 97 Intake and Output 01/29/22 01/30/22 01/30/22 22:59 06:59 14:59 Other: Weight 61.235 kg Results 01/29/22 23:18 01/29/22 23:18 Cardiac Enzymes 01/29/22 01/29/22 01/30/22 Range/Units 23:18 23:18 03:18 AST 13 L (14-36) U/L Troponin I 0.380 H* 0.339 H* (0.000-0.034) ng/mL Coagulation 01/29/22 Range/Units 23:18 PT 14.7 H (9.0-12.0) sec APTT 25.5 (22.0-30.0) sec CBC 01/29/22 Range/Units 23:18 WBC 5.5 (3.8-10.6) k/uL RBC 3.17 L (3.80-5.40) m/uL Hgb 8.1 L D (11.4-16.0) gm/dL Hct 26.6 L (34.0-46.0) % Plt Count 212 (150-450) k/uL Comprehensive Metabolic Panel 01/29/22 Range/Units 23:18 Sodium 136 L (137-145) mmol/L Potassium 3.3 L (3.5-5.1) mmol/L Chloride 98 (98-107) mmol/L Carbon Dioxide 27 (22-30) mmol/L BUN 30 H (7-17) mg/dL Creatinine 6.12 H (0.52-1.04) mg/dL Glucose 101 H (74-99) mg/dL Calcium 8.7 (8.4-10.2) mg/dL AST 13 L (14-36) U/L ALT 7 (4-34) U/L Alkaline Phosphatase 70 (38-126) U/L Total Protein 6.3 (6.3-8.2) g/dL Albumin 3.6 (3.5-5.0) g/dL Current Medications Generic Name Dose Route Start Last Admin Trade Name Freq PRN Reason Stop Dose Admin Morphine Sulfate 4 mg 01/30/22 00:05 Morphine Sulfate 4 Mg/Ml Syringe IVP Q4HR PRN Pain Naloxone HCl 0.2 mg 01/30/22 01:21 Naloxone 0.4 Mg/Ml 1 Ml Vial IV Q2M PRN Opioid Reversal Ondansetron HCl 4 mg 01/30/22 01:21 Ondansetron 4 Mg/2 Ml Vial IVP Q8HR PRN Nausea And Vomiting Intake and Output 01/29/22 01/30/22 01/30/22 22:59 06:59 14:59 Other: Weight 61.235 kg 01/29/22 23:18 01/29/22 23:18
[2022-01-30] MEDS ORDERED: MIDODRINE 5 MG TAB PO PRN (12:18)
--- NOTE | 2022-01-30 12:27 | P.NPCON ---
History of Present Illness - Reason for Consult end stage renal disease - History of Present Illness Patient is a 46-year-old female with end-stage renal disease on home hemodialysis. Patient is admitted to the hospital with complaints of increasing shortness of breath. Patient states that her blood pressure had been running on the lower side and was not able to get fluid off with home hemodialysis. Patient was started on midodrine which did not help much with blood pressure. Patient denies any history of fevers chills. No significant nausea vomiting or abdominal pain. No significant change in her access. Review of Systems As per HPI Past Medical History Past Medical History: Heart Failure, Diabetes Mellitus, Dialysis, GERD/Reflux, Hyperlipidemia, Hypertension, Renal Disease Additional Past Medical History / Comment(s): End stage RENAL FAILURE WITH CURRENT HEMODIALYSIS @ home. Hx of respiratory failure due to sepsis and was vented once, Hx of IDDM type II, diabetic neuropathy bilateral feet, hx. of anemia, hiatal hernia, [id number].Migraines. History of Any Multi-Drug Resistant Organisms: None Reported Past Surgical History: Bowel Resection, Breast Surgery, Cholecystectomy, Hernia Repair Additional Past Surgical History / Comment(s): R breast biopsy X 2 both benign, breast reduction, akosua cataracts removed HAS HAD 2 PERITONEAL DIALYSIS CATHETERS, AND 5 HEMODIALYSIS CATHETHERS, umbilical hernia repair with ischemic bowel within-small resection, colonoscopy/EGD. Removed L Ovary. Graft R arm. Past Anesthesia/Blood Transfusion Reactions: Motion Sickness, Postoperative Nausea & Vomiting (PONV) Additional Past Anesthesia/Blood Transfusion Reaction / Comment(s): no blood products-pt is a [employer] Date of Last Stent Placement:: 08/17/21 Past Psychological History: No Psychological Hx Reported Smoking Status: Never smoker Past Alcohol Use History: Occasional Past Drug Use History: None Reported - Past Family History Mother Family Medical History: Osteoarthritis (OA) Additional Family Medical History / Comment(s): . Father Family Medical History: Cancer Additional Family Medical History / Comment(s): Father of LIVER cancer at age 61 yrs. Medications and Allergies Home Medications Medication Instructions Recorded Confirmed Type Magnebind 300 1 tab PO TID-W/MEALS 03/17/19 01/30/22 History rOPINIRole HCL [Requip] 1 mg PO BID 03/17/19 01/30/22 History Gabapentin [Neurontin] 200 mg PO DAILY@1200 07/16/21 01/30/22 History Calcium Acetate [PhosLo] 1,334 mg PO TID-W/MEALS 08/16/21 01/30/22 History Cinacalcet HCl [Sensipar] 90 mg PO MOTUWETHFR 08/16/21 01/30/22 History Ergocalciferol (Vitamin D2) 1,250 mcg PO MO 08/16/21 01/30/22 History [Drisdol (50,000 Iu)] Lidocaine-Prilocaine Cream [Emla 1 applic TOPICAL DAILY PRN 08/16/21 01/30/22 History Cream 2.5%/2.5%] Omeprazole 20 mg PO DAILY 08/16/21 01/30/22 History calcitrioL [Calcitriol] 1 mcg PO DAILY 08/16/21 01/30/22 History rOPINIRole HCL [Requip] 0.25 mg PO BID 08/16/21 01/30/22 History Atorvastatin [Lipitor] 80 mg PO DAILY 30 Days #30 tab 08/20/21 01/30/22 Rx Clopidogrel [Plavix] 75 mg PO DAILY 30 Days #30 tab 08/20/21 01/30/22 Rx Nitroglycerin Sl Tabs [Nitrostat] 0.4 mg SUBLINGUAL Q5M PRN #25 tab 08/20/21 01/30/22 Rx Zolpidem [Ambien] 5 mg PO HS PRN 09/20/21 01/30/22 History Metoprolol Tartrate [Lopressor] 25 mg PO BID #60 tab 09/22/21 01/30/22 Rx Aspirin 81 mg PO DAILY 01/30/22 01/30/22 History Cyclobenzaprine [Flexeril] 10 mg PO TID PRN 01/30/22 01/30/22 History Gabapentin [Neurontin] 400 mg PO HS 01/30/22 01/30/22 History Midodrine [ProAmatine] 5 mg PO BID PRN 01/30/22 01/30/22 History Allergies Allergy/AdvReac Type Severity Reaction Status Date / Time No Known Allergies Allergy Verified 01/30/22 09:01 Physical Exam Vitals: Vital Signs Temp Pulse Resp BP Pulse Ox 01/30/22 10:00 76 18 120/74 98 01/30/22 08:00 76 18 119/74 98 01/30/22 04:22 97.4 F L 74 16 101/60 98 01/30/22 00:37 83 18 114/70 92 L 01/29/22 16:05 97.9 F 88 18 115/69 97 Intake and Output 01/29/22 01/30/22 01/30/22 22:59 06:59 14:59 Other: Weight 61.235 kg Patient is awake, comfortable, not in any acute distress Face is puffy Examination of the heart S1 and S2 Examination lungs bilateral breath sounds are heard Abdomen is soft nontender Exertion lower extremities shows no significant edema 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 End-stage renal disease on home hemodialysis 2. Volume overload 3. CK D mineral bone disorder 4. Acute hypoxic respiratory failure associated with volume overload and CHF 5. Coronary artery disease with history of recent coronary artery stents , ejection fraction 50-55% on echocardiogram done in September 2021 6. Hypokalemia, will replace with dialysis Plan: Hemodialysis today and then again in a.m. Maintain patient on midodrine Increase UF as tolerated Replace potassium with dialysis
[2022-01-30] MEDS ORDERED: MIDODRINE 5 MG TAB PO SCH (12:30)
[2022-01-30] MEDS ORDERED: NITROGLYCERIN SL TABS 0.4 MG TAB SUBLINGUAL PRN (14:13)
[2022-01-30] MEDS ORDERED: ZOLPIDEM 5 MG TAB PO PRN (14:13)
[2022-01-30] MEDS ORDERED: CYCLOBENZAPRINE 10 MG TAB PO PRN (14:13)
[2022-01-30] MEDS ORDERED: LIDOCAINE-PRILOCAINE 2.5-2.5% CREAM 5 GM TUBE TOPICAL PRN (14:13)
--- NOTE | 2022-01-30 17:12 | CA ---
Transthoracic Echo Report Name: Mónica Titus Age: 46 Gender: F : 1975 Exam Date: 01/30/2022 10:55 Exam Location: [facility] Ht (in): 63 Wt (lb): 135 Ordering Physician: aHlle Dalal Attending/Referring Phys: Snow Plow Operator Danisha Chahal, GONZALEZ Procedure CPT: Indications: repeat evalute LV Function, elevated trop/CP Cardiac Hx: Technical Quality: Good Contrast 1: Total Dose (mL): Contrast 2: Total Dose (mL): MEASUREMENTS (Male / Female) Normal Values 2D ECHO LV Diastolic Diameter PLAX 4.9 cm 4.2 - 5.9 / 3.9 - 5.3 cm LV Systolic Diameter PLAX 3.6 cm IVS Diastolic Thickness 1.2 cm 0.6 - 1.0 / 0.6 - 0.9 cm LVPW Diastolic Thickness 1.3 cm 0.6 - 1.0 / 0.6 - 0.9 cm LV Relative Wall Thickness 0.5 RV Internal Dim ED PLAX 3.4 cm LA Systolic Diameter LX 4.3 cm 3.0 - 4.0 / 2.7 - 3.8 cm LA Volume 77.2 cm??? 18 - 58 / 22 - 52 cm??? M-MODE Aortic Root Diameter MM 2.9 cm LA Systolic Diameter MM 4.7 cm LA Ao Ratio MM 1.6 MV E Point Septal Separation 0.9 cm AV Cusp Separation MM 1.8 cm DOPPLER TR Peak Velocity 290.7 cm/s TR Peak Gradient 33.8 mmHg Right Ventricular Systolic Press 37.1 mmHg FINDINGS Left Ventricle Normal Left ventricular size, mild wall thickness, Inferior Hypokinesis. left ventricular ejection fraction is estimated at 40-45%. Right Ventricle Normal right ventricular size and function. Right Atrium Normal right atrial size. Left Atrium Mildly increased left atrial diameter. Severely increased left atrial volume. Mildly increased left atrial area. Mitral Valve Structurally normal mitral valve. Moderate mitral regurgitation. Aortic Valve Trileaflet aortic valve. Tricuspid Valve Structurally normal tricuspid valve. Mild tricuspid regurgitation. Pulmonic Valve Structurally normal pulmonic valve. Mild pulmonic regurgitation. Pericardium Small pericardial effusion. Aorta Normal size aortic root and proximal ascending aorta. CONCLUSIONS Moderate LV systolic dysfunction secondary to prior inferior wall myocardial infarction dilated left atrium with moderate mitral regurgitation and mild tricuspid regurgitation Previewed by: Dr. Leonard Bauer MD (Electronically Signed) Final Date: 30 January 2022 17:11
--- NOTE | 2022-01-30 17:25 | HP ---
HISTORY AND PHYSICAL CHIEF COMPLAINT: Shortness of breath. HISTORY OF PRESENT ILLNESS: This 46 -year-old woman with a past medical history of diabetes type 2, chronic renal failure on hemodialysis, CHF, and multiple medical problems was complaining of increased shortness of breath, cough and sputum. Patient came to [facility]. Chest x-ray showed CHF and the patient also had greenish sputum at this time. The patient also started on empiric antibiotics. Otherwise, the troponins also found to be elevated 0.380. BNP is elevated to 125,000. There is no history of fever or rigors. PAST MEDICAL HISTORY: History of diabetes, CHF, hemodialysis. The rest of the history noted. HOME MEDICATIONS: Reviewed and include: Requip. Dose and rest of medications noted. ALLERGIES: None. FAMILY HISTORY: History of cancer in the family. SOCIAL HISTORY: No history of smoking. REVIEW OF SYSTEMS: 14 point review of systems negative except as mentioned earlier. PHYSICAL EXAM: Pulse is 72, blood pressure 120/70, respiration 18. HEENT: Conjunctivae normal. NECK: No JVD. CARDIOVASCULAR: S1, S2. RESPIRATORY: Breath sounds diminished in the bases. Scattered rhonchi and crackles. ABDOMEN: Soft, nontender. No mass palpable. LEGS: No edema. No swelling. NERVOUS SYSTEM: Higher functions as mentioned. Moves all four extremities. LYMPHATICS: No lymph nodes palpable in the neck, axillae or groin. SKIN: No ulcer, rash or bleeding. JOINTS: No active deforming arthropathy. LABS: At this time reviewed and include: WBC hemoglobin is 8.1. Other labs are noted. ASSESSMENT: 1. Congestive heart failure acute exacerbation. 2. Chronic renal failure on hemodialysis. 3. Acute purulent tracheobronchitis. 4. Troponin elevated up to 0.280. 5. Multiple medical issues. RECOMMENDATIONS AND DISCUSSION: In this 46 -year-old woman who presented with multiple complex medical issues, we will monitor the patient closely. We will obtain cardiology consultation, cardiac workup. Nephrology consultation. Otherwise, hemodialysis. Empiric antibiotics also will be given with bronchodilators and continue to monitor. Guarded prognosis. Further recommendations to follow. See orders for details. MMODL / IJN: [id number] / MTDD
[2022-01-30] MEDS: CALCIUM CARB-MAG CARB-FOLIC 1 EACH TAB PO SCH (19:23)
[2022-01-30] MEDS: CINACALCET 30 MG TAB PO SCH (19:23)
[2022-01-30] MEDS: CALCIUM ACETATE 667 MG TAB PO SCH (19:24)
[2022-01-30] MEDS: IPRATROPIUM-ALBUTEROL 3 ML NEB INHALATION SCH (20:28)
[2022-01-30] MEDS: PANTOPRAZOLE 40 MG/10 ML VIAL IVP SCH (21:14)
[2022-01-30] MEDS: GABAPENTIN 400 MG CAP PO SCH (21:14)
[2022-01-31 07:38] LABS: Glucose,Whole Blood 101 mg/dL (70-110)
[2022-01-31] MEDS: IPRATROPIUM-ALBUTEROL 3 ML NEB INHALATION SCH ×3 (07:41→19:27)
[2022-01-31] MEDS: CLOPIDOGREL 75 MG TAB PO SCH (08:08)
[2022-01-31] MEDS: CALCIUM ACETATE 667 MG TAB PO SCH ×3 (08:08→17:23)
[2022-01-31] MEDS: CALCIUM CARB-MAG CARB-FOLIC 1 EACH TAB PO SCH ×3 (08:08→17:23)
[2022-01-31] MEDS: PANTOPRAZOLE 40 MG/10 ML VIAL IVP SCH (08:08)
[2022-01-31] MEDS: ATORVASTATIN 80 MG TAB PO SCH (08:08)
[2022-01-31] MEDS: ASPIRIN 81 MG PO SCH (08:09)
[2022-01-31] MEDS: METOPROLOL TARTRATE 25 MG TAB PO SCH ×2 (08:09→23:13)
[2022-01-31] MEDS: INSULIN ASPART (NovoLOG) 100 UNIT/ML VIAL SQ SCH ×2 (08:10→12:30)
--- NOTE | 2022-01-31 09:00 | P.PN ---
Subjective Progress Note Date: 01/31/22 HISTORY OF PRESENT ILLNESS: This is a pleasant 46-year-old female past medical history significant for coronary artery disease s/p PCI to mid LAD and Proximal left circumflex 2021 and PCI LAD in 09/2021, type 2 diabetes, hypertension, dyslipidemia, end- stage renal disease on hemodialysis plans for evaluation for renal transplant at [facility]. She follows with Dr. Bauer in the office. We have been asked to see in consultation for congestive heart failure. Patient presents emergency department with complaints of chest pain, epigastric pain, nausea, some cough, some mild shortness of breath. She states that she was doing her dialysis 2 days ago and noticed her blood pressure to be low, she saw some improvement in her blood pressure with midodrine. She was unable to achieve her dry weight at home/is not able to remove enough fluid during dialysis due to her low blood pressure. Her chest pain is nonradiating, nonexertional. No specific alleviating factors. It is aggravated by cough. She believes her nausea is related to morphine she was given. Her epigastric/chest pain has improved. DIAGNOSTICS EKG sinus rhythm HR 88,T wave inversion in lead III, no acute ST ST-T wave abnormalities. Prior EKG with similar findings Echocardiogram 09/2021 revealed EF 50-55%, moderate MR, mild TR Chest xray revealed pulmonary interstitial edema, pleural fluid is new compared to old exam Laboratory reviewed, troponin 0.3x 3, sodium 136, potassium 3.3, BUN 30, serum creatinine 6.1, proBNP [id number], WBC 5.5, troponin 0.1, platelets 212 Current home medications include aspirin 81 mg daily, Plavix 70 mg daily, atorvastatin 80 mg daily, midodrine 10 mg 3 times a day, metoprolol tartrate 12.5 mg twice a day Cardiac catheterization 09/2021 revealed- CAD with proximal LAD 90% stenosis s/p PCI proximal LAD, Residual circumflex 50-60% stenosis 01/31/2022 Patient examined this morning at the bedside. Patient denies chest pain or press ure. Denies SOB. She underwent HD yesterday with removal of 1L. Vital signs are stable. Blood pressure 103/66. PHYSICAL EXAM: VITAL SIGNS: Reviewed. GENERAL: Well-developed in no acute distress. NECK: Supple. No JVD or thyromegaly LUNGS: Respirations even and unlabored. Lungs essentially clear to auscultation bilaterally. HEART: Regular rate and rhythm. S1 and S2 heard. Systolic murmur noted. EXTREMITIES: Normal range of motion. No clubbing or cyanosis. Peripheral puls es intact. No lower extremity edema ASSESSMENT: Chest and epigastric pain, atypical, worse with cough Shortness of breath, likely related to overload secondary to not achieving dry weight during last dialysis secondary to hypotension at home Elevated troponin, secondary to renal failure End stage renal disease on hemodialysis Coronary artery disease s/p PCI to mid LAD and Proximal left circumflex 08/17/2021 Type 2 Diabetes Dyslipidemia PLAN: Continue current cardiac medications HD per nephrology Further recommendations pending patient course Nurse practitioner note has been reviewed by physician. Signing provider agrees with the documented findings, assessment, and plan of care. Objective - Vital Signs Vital signs: Vital Signs Temp 97.7 F 01/31/22 05:33 Pulse 80 01/31/22 07:51 Resp 16 01/31/22 05:33 BP 103/66 01/31/22 05:33 Pulse Ox 91 L 01/31/22 05:33 FiO2 Intake & Output 01/30/22 01/31/22 01/31/22 18:59 06:59 18:59 Output Total 1000 Balance -1000 Weight 61.235 kg Output: Hemodialysis 1000 Other: Voiding Method Toilet # Voids 2 - Labs CBC & Chem 7: 01/29/22 23:18 01/29/22 23:18 Labs: Abnormal Lab Results - Last 24 Hours (Table) 01/30/22 Range/Units 08:12 Troponin I 0.323 H* (0.000-0.034) ng/mL
--- NOTE | 2022-01-31 10:23 | CDI ---
Documentation Clarification Form Date: 01/31/2022 10:00:54 AM From: Mary Cesar CCS, CCDS Admit Date: 01/30/2022 01:21:00 AM Patient Name: Mónica Titus Visit Number: [id number] Discharge Date: ATTENTION: The Clinical Documentation Specialists (CDI) and [facility] Coding Staff appreciate your assistance in clarifying documentation. Please respond to the clarification below the line at the bottom and electronically sign. The CDI & [facility] Coding staff will review the response and follow-up if needed. Please note: Queries are made part of the Legal Health Record. If you have any questions, please contact the author of this message via ITS. Dr. Duong Rios: Cardiology was consulted on 01/30 for Congestive Heart Failure. Consult Impression: SOB, likely related to overload secondary to not achieving dry weight during last dialysis secondary to hypotension at home. Per the 01/30 History & Physical: Congestive Heart Failure Acute Exacerbation. Additional information regarding the Type & Acuity of CHF is requested. History/Risk Factors per the 01/30 H/P: DM II, Chronic Renal Failure on Hemodialysis, CHF. Per the 01/29 ED Note Past Medical History: GERD, Hyperlipidemia, Hypertension, Previous Respiratory Failure due to Sepsis requiring intubation/ventilation, Diabetic Neuropathy bilateral feet, Anemia, Shingles & Migraines. Clinical Indicators: Presented to the ED on 01/29 with worsening SOB, worse with exertion; Nonproductive cough, Orthopnea, has not missed dialysis, occasional chest pressure. Admit with Anemia, Chronic renal failure, Systolic CHF, Acute pulmonary edema, Renal Failure syndrome, NSTEMI, Acute renal failure. 01/29 VS: T 97.9, P 88, R 18, BP 115/69, PO 97 RA, 92 RA; BMI: 23.9 01/29 LAB: RBC 3.17, Hgb 8.1, Hct 26.6, Lymph 0.9; PT 14.7, INR 1.4; Na 136, K 3.3, BUN 30, Creatinine 6.12, Glucose 101, AST 13, Troponin 0.380, 0.339, 0.323. 01/29 RAD: CXR: Pulmonary interstitial edema and pleural fluid. 01/29 EKG: R 88 sinus rhythm. Moderate Intraventricular conduction delay, Nonspecific T wave abnormality, Prolonged QT interval. 01/30 ECHO: Moderate LV systolic dysfunction secondary to prior inferior wall myocardial infarction dilated left atrium with moderate mitral regurgitation and mild tricuspid regurgitation, EF 40-45%. Treatment 01/30: Telemetry, Notified Hemodialysis, po Aspirin 324 mg x1, IV Morphine Sulfate 4 mg q4/prn x2, IV Zofran 4 mg q8H/prn, po Plavix 75 mg Daily, po Lopressor 25 mg BID, po Proamatine 10 mg x1/prn, IV Rocephin 50 mls @ 100 mls/hr q24H, INH Duoneb 3 ml TID In your professional opinion, can you please clarify the Type & Acuity of CHF if known? [ ] Acute Systolic Heart Failure [ ] Chronic Systolic Heart Failure [ ] Acute on Chronic Systolic Heart Failure [ ] Other, please specify: [ ] Unable to determine (Template Last Revised: September 2020) Acute on Chronic Systolic Heart Failure MTDD
[2022-01-31 10:33] LABS: HCT 29.4 % (37.2-46.3); HGB 8.2 g/dL (12.0-15.0); MCH 23.9 pg (27.0-32.0); MCHC 27.9 g/dL (32.0-37.0); MCV 85.7 fL (80.0-97.0); Mean Platelet Volume 11.6 fL (9.5-12.2); NRBC Per 100 WBC 0 /100 WBCS (0.0-0.0); Platelet Count 238 X 10*3/uL (140-440); RBC 3.43 X 10*6/uL (4.10-5.20); RDW 22.7 % (11.5-14.5); WBC 6.77 X 10*3/uL (4.50-10.00)
[2022-01-31 10:49] LABS: African American GFR (CKD) 12.3 (60.0-200.0); Albumin/Globulin Ratio 1.43 (1.60-3.17); Anion Gap 16.3 mmol/L (10.00-18.00); BUN/Creat Ratio 3.48 Ratio (12.00-20.00); Calcium 9.2 mg/dL (8.7-10.3); Carbon Dioxide 26.7 mmol/L (20.0-27.5); Globulin 2.8 g/dL (1.6-3.3); Non-African American GFR(CKD) 10.6 (60.0-200.0); Potassium 3.6 mmol/L (3.5-5.5); Total Bilirubin 0.3 mg/dL (0.30-1.20); Total Protein 6.8 g/dL (6.2-8.2)
[2022-01-31 11:36] LABS: Basophils # (A) 0.06 X 10*3/uL (0.00-0.10); Basophils % (A) 0.9 %; Eosinophils # (A) 0.06 X 10*3/uL (0.04-0.35); Eosinophils % (A) 0.9 %; Immature Grans, Automated 0.4 %; Lymphocytes % (A) 11.8 %; Monocytes % (A) 7.4 %; Neutrophils # (A) 5.32 X 10*3/uL (1.80-7.70); Neutrophils % (A) 78.6 %
[2022-01-31 12:22] LABS: Glucose,Whole Blood 112 mg/dL (70-110)
[2022-01-31] MEDS: GABAPENTIN 100 MG CAP PO SCH (12:28)
--- NOTE | 2022-01-31 13:58 | P.PN ---
Subjective Patient is seen for follow-up for end-stage renal disease. She was admitted to the hospital with shortness of breath and fluid overload.. Patient is currently maintained on home hemodialysis. She had dialysis yesterday and the hospital and we had about a liter removed. Shouldn't has been on the lower side and patient is maintained on midodrine. No complaints of chest pain Objective - Vital Signs Vital signs: Vital Signs Temp 97.9 F 01/31/22 12:20 Pulse 99 01/31/22 12:20 Resp 16 01/31/22 12:20 BP 122/77 01/31/22 12:20 Pulse Ox 100 01/31/22 12:20 FiO2 Intake & Output 01/30/22 01/31/22 01/31/22 18:59 06:59 18:59 Output Total 1000 Balance -1000 Weight 61.235 kg Output: Hemodialysis 1000 Other: Voiding Method Toilet # Voids 2 - Exam Awake, comfortable, not in any acute distress Alert oriented 3 Examination of the heart S1 and S2 Examination of the lungs bilateral breath sounds are heard Abdomen is soft nontender Examination of the lower extremities shows no evidence of edema [employer] exam is grossly intact - Labs CBC & Chem 7: 01/31/22 06:25 01/31/22 06:25 Labs: Abnormal Lab Results - Last 24 Hours (Table) 01/31/22 01/31/22 01/31/22 Range/Units 06:25 06:25 12:19 RBC 3.43 L (4.10-5.20) X 10*6/uL Hgb 8.2 L (12.0-15.0) g/dL Hct 29.4 L (37.2-46.3) % MCH 23.9 L (27.0-32.0) pg MCHC 27.9 L (32.0-37.0) g/dL RDW 22.7 H (11.5-14.5) % Lymphocytes # 0.80 L (0.90-5.00) X 10*3/uL Creatinine 4.6 H (0.6-1.5) mg/dL Est GFR (CKD-EPI)AfAm 12.3 L (60.0-200.0) Est GFR (CKD-EPI)NonAf 10.6 L (60.0-200.0) BUN/Creatinine Ratio 3.48 L (12.00-20.00) Ratio POC Glucose (mg/dL) 112 H (70-110) mg/dL AST 10 L (13-35) U/L ALT 7 L (8-44) U/L Albumin/Globulin Ratio 1.43 L (1.60-3.17) g/dL Assessment and Plan Assessment: 1. End-stage renal disease on home hemodialysis 2. Volume overload 3. CK D mineral bone disorder 4. Acute hypoxic respiratory failure associated with volume overload and CHF 5. Coronary artery disease with history of recent coronary artery stents , ejection fraction 50-55% on echocardiogram done in September 2021 6. Hypokalemia, will replace with dialysis Plan: Repeat Hemodialysis today Increase UF as tolerated Continue with midodrine Continue with calcitriol and Sensipar
[2022-01-31] MEDS: CINACALCET 30 MG TAB PO SCH (15:23)
[2022-01-31 17:11] LABS: Glucose,Whole Blood 83 mg/dL (70-110)
[2022-01-31] MEDS ORDERED: HYDROmorphone 0.5 MG/0.5 ML SYRINGE IVP PRN (17:13)
[2022-01-31] MEDS ORDERED: MIDODRINE 5 MG TAB PO PRN (17:30)
--- NOTE | 2022-01-31 18:16 | PN ---
PROGRESS NOTE DATE OF SERVICE: 01/31/2022 This 46-year-old woman who was admitted with CHF, acute exacerbation, also had multiple medical issues. Patient is on hemodialysis. No chest pain. No palpitations. No fever. Two-D echo was reviewed. Patient is complaining of cough. PHYSICAL EXAMINATION: Pulse is 99, blood pressure 120/76, respiration 16. HEENT: Conjunctivae normal. NECK: No jugular venous distention. CARDIOVASCULAR: S1, S2 muffled. RESPIRATION: Breath sounds diminished at the bases. A few scattered rhonchi. ABDOMEN: Soft. NERVOUS SYSTEM: No focal deficit. LABS: WBC ntd. Hemoglobin 8.2. Other labs are reviewed. ASSESSMENT: 1. Congestive heart failure, acute exacerbation. 2. Chronic bronchitis. 3. Chronic renal failure; on hemodialysis. 4. Troponin elevated up to 0.280. 5. Multiple medical issues. 6. Acute purulent tracheobronchitis. RECOMMENDATIONS AND DISCUSSION: I recommend to continue current medications, continue with the monitoring, symptomatic treatment. Continue with the antibiotics and bronchodilators. Continue the hemodialysis. Will repeat x-ray tomorrow, labs tomorrow. Further recommendations to follow. MMODL / IJN: [id number] / MTDDayana
[2022-01-31] MEDS ORDERED: METOPROLOL TARTRATE 25 MG TAB PO STA (18:29)
[2022-01-31] MEDS: NITROGLYCERIN OINT 1 INCH/GM PACKET TOPICAL SCH (18:52)
[2022-01-31] MEDS: PANTOPRAZOLE 40 MG TABLET PO SCH (20:56)
[2022-01-31] MEDS: GABAPENTIN 400 MG CAP PO SCH (20:56)
[2022-02-01] MEDS: NITROGLYCERIN OINT 1 INCH/GM PACKET TOPICAL SCH ×3 (00:13→12:22)
[2022-02-01 06:47] LABS: African American GFR (CKD) 18 (>60 ml/min/1.73 sqM); Anion Gap 9 mmol/L; Blood Urea Nitrogen 9 mg/dL (7-17); Calcium 8.3 mg/dL (8.4-10.2); Carbon Dioxide 30 mmol/L (22-30); Chloride 101 mmol/L (98-107); Glucose 121 mg/dL (74-99); Non-African American GFR(CKD) 16 (>60 ml/min/1.73 sqM); Potassium 3.6 mmol/L (3.5-5.1); Sodium 140 mmol/L (137-145)
[2022-02-01 06:57] LABS: Anisocytosis Moderate; Basophils % (A) 0 %; Eosinophils # (A) 0.1 k/uL (0-0.7); Eosinophils % (A) 1 %; HCT 28.4 % (34.0-46.0); HGB 8.5 gm/dL (11.4-16.0); Hypochromasia Marked; Lymphocytes # (A) 0.7 k/uL (1.0-4.8); Lymphocytes % (A) 10 %; MCH 25.8 pg (25.0-35.0); MCHC 29.8 g/dL (31.0-37.0); MCV 86.7 fL (80.0-100.0); Mean Platelet Volume 9.3; Microcytosis Slight; Monocytes # (A) 0.5 k/uL (0-1.0); Monocytes % (A) 7 %; Neutrophils # (A) 5.3 k/uL (1.3-7.7); Neutrophils % (A) 81 %; Platelet Count 237 k/uL (150-450); RBC 3.28 m/uL (3.80-5.40); RDW 20.4 % (11.5-15.5); WBC 6.6 k/uL (3.8-10.6)
[2022-02-01 07:17] VITALS: RESP 16
[2022-02-01] MEDS: IPRATROPIUM-ALBUTEROL 3 ML NEB INHALATION SCH ×2 (08:38→11:42)
--- NOTE | 2022-02-01 09:00 | XR ---
EXAMINATION TYPE: XR chest 1V portable DATE OF EXAM: 02/01/2022 COMPARISON: 01/29/2022 HISTORY: Shortness of breath TECHNIQUE: Single frontal view of the chest is obtained. FINDINGS: Surgical clips were left axilla. Heart size enlarged. Diffuse interstitial pattern small b ilateral effusion and basilar joint. Atherosclerotic change aorta. No sizable pneumothorax. Vascular stent along the right upper extremity. IMPRESSION: Correlate for CHF otherwise consider interstitial pneumonitis. Findings stable.
[2022-02-01] MEDS: ATORVASTATIN 80 MG TAB PO SCH (09:01)
[2022-02-01] MEDS: ASPIRIN 81 MG PO SCH (09:01)
[2022-02-01] MEDS: CLOPIDOGREL 75 MG TAB PO SCH (09:01)
[2022-02-01] MEDS: METOPROLOL TARTRATE 25 MG TAB PO SCH (09:01)
[2022-02-01] MEDS: PANTOPRAZOLE 40 MG TABLET PO SCH (09:01)
--- NOTE | 2022-02-01 09:28 | P.PN ---
Subjective Patient is seen for follow-up for end-stage renal disease. She was admitted to the hospital with shortness of breath and fluid overload.. Patient is currently maintained on home hemodialysis. No complaints of chest pain Patient has had 2 consecutive treatments with UF of 2.3 L yesterday and 1 L prior to that. Overall feeling slightly better although still remains short of breath on exertion. Objective - Vital Signs Vital signs: Vital Signs Temp 97.6 F 02/01/22 07:16 Pulse 90 02/01/22 08:51 Resp 16 02/01/22 07:16 BP 103/68 02/01/22 07:16 Pulse Ox 98 02/01/22 07:16 FiO2 Intake & Output 01/31/22 02/01/22 02/01/22 18:59 06:59 18:59 Intake Total 50 240 Output Total 2300 Balance -2250 240 Intake: Intake, IV Titration 50 Amount cefTRIAXone 1 gm In 50 Sodium Chloride 0.9% 50 ml @ 100 mls/hr IVPB Q24HR [facility] Rx#:[id number] Oral 240 Output: Hemodialysis 2300 Other: Voiding Method Toilet - Exam Awake, comfortable, not in any acute distress Alert oriented 3 Examination of the heart S1 and S2 Examination of the lungs bilateral breath sounds are heard Abdomen is soft nontender Examination of the lower extremities shows no evidence of edema [employer] exam is grossly intact - Labs CBC & Chem 7: 02/01/22 06:05 02/01/22 06:05 Labs: Abnormal Lab Results - Last 24 Hours (Table) 01/31/22 01/31/22 01/31/22 Range/Units 06:25 06:25 12:19 RBC 3.43 L (4.10-5.20) X 10*6/uL Hgb 8.2 L (12.0-15.0) g/dL Hct 29.4 L (37.2-46.3) % MCH 23.9 L (27.0-32.0) pg MCHC 27.9 L (32.0-37.0) g/dL RDW 22.7 H (11.5-14.5) % Lymphocytes # 0.80 L (0.90-5.00) X 10*3/uL Creatinine 4.6 H (0.6-1.5) mg/dL Est GFR (CKD-EPI)AfAm 12.3 L (60.0-200.0) Est GFR (CKD-EPI)NonAf 10.6 L (60.0-200.0) BUN/Creatinine Ratio 3.48 L (12.00-20.00) Ratio Glucose (74-99) mg/dL POC Glucose (mg/dL) 112 H (70-110) mg/dL Calcium (8.4-10.2) mg/dL AST 10 L (13-35) U/L ALT 7 L (8-44) U/L Troponin I (0.000-0.034) ng/mL Albumin/Globulin Ratio 1.43 L (1.60-3.17) g/dL 01/31/22 01/31/22 02/01/22 Range/Units 17:37 22:59 06:05 RBC (4.10-5.20) X 10*6/uL Hgb (12.0-15.0) g/dL Hct (37.2-46.3) % MCH (27.0-32.0) pg MCHC (32.0-37.0) g/dL RDW (11.5-14.5) % Lymphocytes # (0.90-5.00) X 10*3/uL Creatinine (0.6-1.5) mg/dL Est GFR (CKD-EPI)AfAm (60.0-200.0) Est GFR (CKD-EPI)NonAf (60.0-200.0) BUN/Creatinine Ratio (12.00-20.00) Ratio Glucose (74-99) mg/dL POC Glucose (mg/dL) (70-110) mg/dL Calcium (8.4-10.2) mg/dL AST (13-35) U/L ALT (8-44) U/L Troponin I 0.184 H* 0.175 H* 0.167 H* (0.000-0.034) ng/mL Albumin/Globulin Ratio (1.60-3.17) g/dL 02/01/22 02/01/22 Range/Units 06:05 06:05 RBC 3.28 L (4.10-5.20) X 10*6/uL Hgb 8.5 L (12.0-15.0) g/dL Hct 28.4 L (37.2-46.3) % MCH (27.0-32.0) pg MCHC 29.8 L (32.0-37.0) g/dL RDW 20.4 H (11.5-14.5) % Lymphocytes # 0.7 L (0.90-5.00) X 10*3/uL Creatinine 3.34 H (0.6-1.5) mg/dL Est GFR (CKD-EPI)AfAm (60.0-200.0) Est GFR (CKD-EPI)NonAf (60.0-200.0) BUN/Creatinine Ratio (12.00-20.00) Ratio Glucose 121 H (74-99) mg/dL POC Glucose (mg/dL) (70-110) mg/dL Calcium 8.3 L (8.4-10.2) mg/dL AST (13-35) U/L ALT (8-44) U/L Troponin I (0.000-0.034) ng/mL Albumin/Globulin Ratio (1.60-3.17) g/dL Assessment and Plan Assessment: 1. End-stage renal disease on home hemodialysis 2. Volume overload 3. CK D mineral bone disorder 4. Acute hypoxic respiratory failure associated with volume overload and CHF 5. Coronary artery disease with history of recent coronary artery stents , ejection fraction 50-55% on echocardiogram done in September 2021 6. Hypokalemia, will replace with dialysis Plan: Repeat hemodialysis today mostly for UF we will try about 1 L. Possible discharge after dialysis.
[2022-02-01] MEDS: CALCIUM ACETATE 667 MG TAB PO SCH ×2 (09:30→12:22)
[2022-02-01] MEDS: CALCIUM CARB-MAG CARB-FOLIC 1 EACH TAB PO SCH ×2 (09:30→12:22)
[2022-02-01] MEDS: GABAPENTIN 100 MG CAP PO SCH (12:20)
[2022-02-01 13:05] VITALS: BP 96/57; PULSE 86; TEMP 98
[2022-02-01] MEDS: MORPHINE SULFATE 4 MG/ML SYRINGE IVP PRN (14:14)
[2022-02-01] MEDS: CINACALCET 30 MG TAB PO SCH (14:15)
[2022-02-04] MEDS ORDERED: ERGOCALCIFEROL 1,250 MCG (50,000 IU) CAPSULE PO SCH (09:00)
--- NOTE | 2022-02-06 05:49 | P.DS ---
Providers Date of admission: 01/30/22 01:21 Expected date of discharge: 02/01/22 Attending physician: Duong Rios Consults: 01/30/22 01:21 Consult Physician Routine Consulting Provider: Gloria Reyes Consult Reason/Comments: fluid overload Do you want consulting provider notified?: Yes Primary care physician: De Hopper Hospital Course: Final Diagnosis Acute on chronic Congestive heart failure, systolic dysfunction, acute exacerbation Chronic bronchitis Chronic renal failure, on hemodialysis Troponin elevated 0.280 Acute purulent tracheobronchitis Multiple medical issues Discharge disposition Patient is being discharged in a stable condition with guarded prognosis to home. Patient will follow-up with Dr. Hopper in the outpatient setting upon discharge. Patient is to continue with oral ceftin 500mg bid for the next 5 days and follow up outpatient. Recommend cardiology and nephrology follow up on discharge. Total time taken is greater than 35 minutes. Hospital course This is a 46-year-old female who was recently admitted with shortness of breath and cough and CHF exacerbation and was being closely monitored. Patient does hemodialysis at home and will need follow up with cardiology, nephrology, and pcp on discharge. Patient will continue ceftin 500mg bid x 5 days to complete the course. Patient with elevated troponins and cardiology evaluated the patient recommending continuing current medications and outpatient follow up for possible further testing. Currently no reports of chest pain, worsening shortness of breath, or palpitations. Patient is afebrile. Patient with a cough and will provide an inhaler on discharge. No reports of nausea or vomiting and patient is tolerating diet. Patient will be discharged home today. Guarded prognosis. On exam vital signs are stable. Cardio S1, S2 are muffled. Respiratory system shows diminished breath sounds at the bases with no wheezing or rhonchi noted. Abdomen is soft and nontender. Nervous system shows no focal deficits. Please refer to medication reconciliation sheet for a list of medications. The impression and plan of care has been dictated by Nurse Aarti Dick as directed. Dr. Gabriel MD I have performed a history and examination and MDM of this patient, discussed the same with the dictator, and agree with the dictator's assessment and plan as written ,documented as a scribe. Based on total visit time, I have performed more than 50% of the visit. Patient Condition at Discharge: Fair Plan - Discharge Summary Discharge Rx Participant: Yes New Discharge Prescriptions: New cefUROXime axetiL [Ceftin] 500 mg PO BID 5 Days #10 tab Pantoprazole [Protonix] 40 mg PO BID 30 Days #60 tab Isosorbide Mononitrate ER [Imdur] 30 mg PO DAILY 30 Days #30 tab Albuterol Inhaler [Ventolin Hfa Inhaler] 1 puff INHALATION RT-QID PRN 30 Days #8 gm PRN Reason: Shortness Of Breath Continue rOPINIRole HCL [Requip] 1 mg PO BID Magnebind 300 1 tab PO TID-W/MEALS Gabapentin [Neurontin] 200 mg PO DAILY@1200 rOPINIRole HCL [Requip] 0.25 mg PO BID calcitrioL [Calcitriol] 1 mcg PO DAILY Lidocaine-Prilocaine Cream [Emla Cream 2.5%/2.5%] 1 applic TOPICAL DAILY PRN PRN Reason: 1-2 hours prior to dialysis Calcium Acetate [PhosLo] 1,334 mg PO TID-W/MEALS Atorvastatin [Lipitor] 80 mg PO DAILY 30 Days #30 tab Nitroglycerin Sl Tabs [Nitrostat] 0.4 mg SUBLINGUAL Q5M PRN #25 tab PRN Reason: Chest Pain Clopidogrel [Plavix] 75 mg PO DAILY 30 Days #30 tab Zolpidem [Ambien] 5 mg PO HS PRN PRN Reason: Insomnia Metoprolol Tartrate [Lopressor] 25 mg PO BID #60 tab Aspirin 81 mg PO DAILY Ergocalciferol (Vitamin D2) [Drisdol (50,000 Iu)] 1,250 mcg PO MO Omeprazole 20 mg PO DAILY Cinacalcet HCl [Sensipar] 90 mg PO MOTUWETHFR Cyclobenzaprine [Flexeril] 10 mg PO TID PRN PRN Reason: Muscle Spasm Gabapentin [Neurontin] 400 mg PO HS Changed Midodrine [ProAmatine] 5 mg PO TID 30 Days #90 tab Discharge Medication List Magnebind 300 1 tab PO TID-W/MEALS 03/17/19 [History] rOPINIRole HCL [Requip] 1 mg PO BID 03/17/19 [History] Gabapentin [Neurontin] 200 mg PO DAILY@1200 07/16/21 [History] Calcium Acetate [PhosLo] 1,334 mg PO TID-W/MEALS 08/16/21 [History] Cinacalcet HCl [Sensipar] 90 mg PO MOTUWETHFR 08/16/21 [History] Ergocalciferol (Vitamin D2) [Drisdol (50,000 Iu)] 1,250 mcg PO MO 08/16/21 [History] Lidocaine-Prilocaine Cream [Emla Cream 2.5%/2.5%] 1 applic TOPICAL DAILY PRN 08/16/21 [History] Omeprazole 20 mg PO DAILY 08/16/21 [History] calcitrioL [Calcitriol] 1 mcg PO DAILY 08/16/21 [History] rOPINIRole HCL [Requip] 0.25 mg PO BID 08/16/21 [History] Atorvastatin [Lipitor] 80 mg PO DAILY 30 Days #30 tab 08/20/21 [Rx] Clopidogrel [Plavix] 75 mg PO DAILY 30 Days #30 tab 08/20/21 [Rx] Nitroglycerin Sl Tabs [Nitrostat] 0.4 mg SUBLINGUAL Q5M PRN #25 tab 08/20/21 [Rx] Zolpidem [Ambien] 5 mg PO HS PRN 09/20/21 [History] Metoprolol Tartrate [Lopressor] 25 mg PO BID #60 tab 09/22/21 [Rx] Aspirin 81 mg PO DAILY 01/30/22 [History] Cyclobenzaprine [Flexeril] 10 mg PO TID PRN 01/30/22 [History] Gabapentin [Neurontin] 400 mg PO HS 01/30/22 [History] Albuterol Inhaler [Ventolin Hfa Inhaler] 1 puff INHALATION RT-QID PRN 30 Days #8 gm 02/01/22 [Rx] Isosorbide Mononitrate ER [Imdur] 30 mg PO DAILY 30 Days #30 tab 02/01/22 [Rx] Midodrine [ProAmatine] 5 mg PO TID 30 Days #90 tab 02/01/22 [Rx] Pantoprazole [Protonix] 40 mg PO BID 30 Days #60 tab 02/01/22 [Rx] cefUROXime axetiL [Ceftin] 500 mg PO BID 5 Days #10 tab 02/01/22 [Rx] Follow up Appointment(s)/Referral(s): Gloria Reyes MD [STAFF PHYSICIAN] - 1 Week (patient is a dialysis patient will be seen in the dialysis center) De Hopper MD [Primary Care Provider] - 02/18/22 11:20 am Leonard Bauer MD [STAFF PHYSICIAN] - 02/13/22 9:45 am (patient has stress test scheduled for february 11 @7:00 am.at cardiology office) Ambulatory/Diagnostic Orders: Complete Blood Count w/diff [LAB.AMB] Time Frame: 3 Days, Location: None Selected Activity/Diet/Wound Care/Special Instructions: Activity Limited until follow-up Follow-up with primary care provider on discharge Follow-up with nephrology in one week Follow-up with cardiology Dr. Bauer and discuss outpatient stress testing Continue antibiotics for the next 5 days Continue medications as prescribed Continue with hemodialysis Discharge Disposition: HOME SELF-CARE
== END 2022-02-01 16:45 | disposition home or self-care (01) | DRG 291 ==
LOC: EC 15:53 → 4SSUR 01-30 01:21 → 3SCARD 01-30 05:47 → 5NMEDONC 01-30 15:25 → 4SSUR 01-30 19:31 → 5NMEDONC 01-31 00:38
PROVIDERS: ADMIT Hospitalist; ATTEND Hospitalist
PROC: 5A1D70Z Performance of Urinary Filtration, Intermittent, Less than 6 Hours Per Day (ICD-10-PCS; principal; 2022-01-30)
DX: I13.2 Hypertensive heart and chronic kidney disease with heart failure and with stage 5 chronic kidney disease, or end stage renal disease (principal); I50.23 Acute on chronic systolic (congestive) heart failure; N18.6 End stage renal disease; J96.01 Acute respiratory failure with hypoxia; N17.9 Acute kidney failure, unspecified; E11.22 Type 2 diabetes mellitus with diabetic chronic kidney disease; D63.1 Anemia in chronic kidney disease; Z20.822 Contact with and (suspected) exposure to COVID-19; I25.10 Atherosclerotic heart disease of native coronary artery without angina pectoris; E78.5 Hyperlipidemia, unspecified; E87.6 Hypokalemia; J42 Unspecified chronic bronchitis; E11.42 Type 2 diabetes mellitus with diabetic polyneuropathy; K21.9 Gastro-esophageal reflux disease without esophagitis; J20.9 Acute bronchitis, unspecified; Z95.5 Presence of coronary angioplasty implant and graft; M89.9 Disorder of bone, unspecified; Z53.1 Procedure and treatment not carried out because of patient's decision for reasons of belief and group pressure; Z90.49 Acquired absence of other specified parts of digestive tract; Z79.02 Long term (current) use of antithrombotics/antiplatelets; Z99.2 Dependence on renal dialysis; Z79.4 Long term (current) use of insulin; Z79.82 Long term (current) use of aspirin; Z79.899 Other long term (current) drug therapy; Z95.1 Presence of aortocoronary bypass graft
CPT/HCPCS: 36415; 71045; 71046; 80048; 80053; 83880; 84484; 85025; 85610; 85730; 87502; 87635; 90935; 93005; 93306; 94640; 94760; 96365; 96375; 96376; 99285

== ENCOUNTER 2022-03-06 23:59 | Inpatient (IN) | payer MEDICARE, BC ==
[2022-03-07] MEDS ORDERED: MORPHINE SULFATE 4 MG/ML SYRINGE IM STA (01:07)
[2022-03-07 01:33] LABS: Anisocytosis Slight; Basophils % (A) 0 %; Eosinophils % (A) 2 %; HCT 29.5 % (34.0-46.0); HGB 8.8 gm/dL (11.4-16.0); Hypochromasia Marked; Lymphocytes # (A) 1.4 k/uL (1.0-4.8); Lymphocytes % (A) 21 %; MCH 25.4 pg (25.0-35.0); MCHC 29.7 g/dL (31.0-37.0); MCV 85.4 fL (80.0-100.0); Mean Platelet Volume 8.1; Microcytosis Slight; Monocytes % (A) 5 %; Neutrophils # (A) 4.4 k/uL (1.3-7.7); Neutrophils % (A) 70 %; Platelet Count 235 k/uL (150-450); RBC 3.45 m/uL (3.80-5.40); RDW 19.7 % (11.5-15.5); WBC 6.4 k/uL (3.8-10.6)
[2022-03-07 01:34] LABS: Eosinophils # (A) 0.2 k/uL (0-0.7); Monocytes # (A) 0.3 k/uL (0-1.0)
[2022-03-07 01:50] LABS: Albumin 3.4 g/dL (3.5-5.0); Calcium 8.7 mg/dL (8.4-10.2); Magnesium 1.6 mg/dL (1.6-2.3); Potassium 3.1 mmol/L (3.5-5.1); Total Bilirubin 0.2 mg/dL (0.2-1.3); Total Protein 6.1 g/dL (6.3-8.2)
[2022-03-07 01:55] LABS: INR 1.4 (<1.2); Partial Thromboplastin Time 27.7 sec (22.0-30.0); Prothrombin Time 14.1 sec (9.0-12.0)
--- NOTE | 2022-03-07 01:57 | XR ---
EXAMINATION TYPE: XR chest 2V DATE OF EXAM: 03/07/2022 COMPARISON: 02/01/2022 HISTORY: Chest pain TECHNIQUE: FINDINGS: Heart is enlarged. There is pulmonary interstitial mild edema. There are chest leads. Costophrenic an gles are fairly clear. The bony thorax is intact. IMPRESSION: Pulmonary interstitial edema is the same or slightly increased compared to the old exam a nd could be mild heart failure.
[2022-03-07] MEDS ORDERED: HEPARIN SODIUM 1,000 UN/ML (10ML VL) IV PRN (03:41)
[2022-03-07] MEDS ORDERED: HEPARIN SODIUM 1,000 UN/ML (10ML VL) IV ONE (03:41)
[2022-03-07] MEDS ORDERED: ASPIRIN 81 MG PO STA (03:41)
--- NOTE | 2022-03-07 03:43 | P.HPIM ---
History of Present Illness H&P Date: 03/07/22 The patient is a 47-year-old female with a PMH of ESRD on hemodialysis at home, type II DM, hypertension, hyperlipidemia, coronary artery disease status post 4 stents who presents to the emergency room with complaints of chest pain. The patient reports that she was in her usual state of health until about 4 PM when she suddenly developed a substernal pressure-like 10 out of 10 chest discomfort with associated shortness of breath and nausea. She reports taking 2 sublingual electrical strength which relieved her pain home only for the patient to return a few hours later. At time of interview, she reports that her pain has not improved, rated at a time. She denied experiencing palpitations, diaphoresis, or lightheadedness. The patient reports that the pain is somewhat similar nature to when she had her prior MIs. After evaluation in the emergency room was remarkable for troponin of 0.572, proBNP 106,000, hemoglobin 8.8, and potassium 3.1. EKG reveals sinus rhythm at 96 bpm with poor R-wave progression, intraventricular conduction delay, and ST segment depression in lead I. Review of systems: Pertinent positives and negatives as discussed in HPI, a complete review of systems was performed and all other systems are negative. Physical examination: General: non toxic, no distress, appears at stated age, normal weight Derm: no unusual rashes/lesions, warm Head: atraumatic, normocephalic, symmetric Eyes: EOMI, no lid lag, anicteric sclera, pupils equal round reactive to light ENT: Nose and ears atraumatic Neck: No cervical lymphadenopathy, trachea midline, supple Mouth: no lip lesion, mucus membranes moist Cardiovascular: S1S2 reg, no murmur, positive dorsalis pedis pulse bilateral, no edema Lungs: Bibasilar rales to mid lung vega, no wheezing, no accessory muscle use Abdominal: soft, nontender to palpation, no guarding Ext: muscle strength 5 out of 5 in all 4 extremities grossly, no gross muscle atrophy, no contractures, right arm AV graft with palpable thrill and bruit noted Neuro: CN II-XI grossly intact, no gross focal neuro deficits Psych: Alert, oriented, appropriate affect Assessment/plan Non-ST elevation MA -Initiate heparin infusion -Continue with aspirin, statin -Cardiology consulted -Trend troponin -Cardiac monitoring Normocytic anemia, likely due to ESRD Hypokalemia -Monitor for now as patient is ESRD Chronic conditions: Type II DM, ESRD, hypertension, hyperlipidemia -Continue with home meds -Nephrology consult for dialysis DVT prophylaxis -Heparin infusion The patient is admitted with an anticipated less than 2 midnight stay for evaluation of non-ST elevation MA. CODE STATUS: Full Code Discussed with: Patient Anticipated discharge date: In a.m. Anticipated discharge place: Home Past Medical History Past Medical History: Heart Failure, Diabetes Mellitus, Dialysis, GERD/Reflux, Hyperlipidemia, Hypertension, Renal Disease Additional Past Medical History / Comment(s): End stage RENAL FAILURE WITH CURRENT HEMODIALYSIS @ home. Hx of respiratory failure due to sepsis and was vented once, Hx of IDDM type II, diabetic neuropathy bilateral feet, hx. of anemia, hiatal hernia, [id number].Migraines. History of Any Multi-Drug Resistant Organisms: None Reported Past Surgical History: Bowel Resection, Breast Surgery, Cholecystectomy, Hernia Repair Additional Past Surgical History / Comment(s): R breast biopsy X 2 both benign, breast reduction, akosua cataracts removed HAS HAD 2 PERITONEAL DIALYSIS CATHETERS, AND 5 HEMODIALYSIS CATHETHERS, umbilical hernia repair with ischemic bowel within-small resection, colonoscopy/EGD. Removed L Ovary. Graft R arm. Past Anesthesia/Blood Transfusion Reactions: Motion Sickness, Postoperative Nausea & Vomiting (PONV) Additional Past Anesthesia/Blood Transfusion Reaction / Comment(s): no blood products-pt is a Mosque Date of Last Stent Placement:: 08/17/21 Past Psychological History: No Psychological Hx Reported Smoking Status: Never smoker Past Alcohol Use History: None Reported, Rare Past Drug Use History: None Reported - Past Family History Mother Family Medical History: Osteoarthritis (OA) Additional Family Medical History / Comment(s): . Father Family Medical History: Cancer Additional Family Medical History / Comment(s): Father of LIVER cancer at age 61 yrs. Medications and Allergies Home Medications Medication Instructions Recorded Confirmed Type Magnebind 300 1 tab PO TID-W/MEALS 03/17/19 01/30/22 History rOPINIRole HCL [Requip] 1 mg PO BID 03/17/19 01/30/22 History Gabapentin [Neurontin] 200 mg PO DAILY@1200 07/16/21 01/30/22 History Calcium Acetate [PhosLo] 1,334 mg PO TID-W/MEALS 08/16/21 01/30/22 History Cinacalcet HCl [Sensipar] 90 mg PO MOTUWETHFR 08/16/21 01/30/22 History Ergocalciferol (Vitamin D2) 1,250 mcg PO MO 08/16/21 01/30/22 History [Drisdol (50,000 Iu)] Lidocaine-Prilocaine Cream [Emla 1 applic TOPICAL DAILY PRN 08/16/21 01/30/22 History Cream 2.5%/2.5%] Omeprazole 20 mg PO DAILY 08/16/21 01/30/22 History calcitrioL [Calcitriol] 1 mcg PO DAILY 08/16/21 01/30/22 History rOPINIRole HCL [Requip] 0.25 mg PO BID 08/16/21 01/30/22 History Atorvastatin [Lipitor] 80 mg PO DAILY 30 Days #30 tab 08/20/21 01/30/22 Rx Clopidogrel [Plavix] 75 mg PO DAILY 30 Days #30 tab 08/20/21 01/30/22 Rx Nitroglycerin Sl Tabs [Nitrostat] 0.4 mg SUBLINGUAL Q5M PRN #25 tab 08/20/21 01/30/22 Rx Zolpidem [Ambien] 5 mg PO HS PRN 09/20/21 01/30/22 History Metoprolol Tartrate [Lopressor] 25 mg PO BID #60 tab 09/22/21 01/30/22 Rx Aspirin 81 mg PO DAILY 01/30/22 01/30/22 History Cyclobenzaprine [Flexeril] 10 mg PO TID PRN 01/30/22 01/30/22 History Gabapentin [Neurontin] 400 mg PO HS 01/30/22 01/30/22 History Albuterol Inhaler [Ventolin Hfa 1 puff INHALATION RT-QID PRN 30 02/01/22 Rx Inhaler] Days #8 gm Isosorbide Mononitrate ER [Imdur] 30 mg PO DAILY 30 Days #30 tab 02/01/22 Rx Midodrine [ProAmatine] 5 mg PO TID 30 Days #90 tab 02/01/22 Rx Pantoprazole [Protonix] 40 mg PO BID 30 Days #60 tab 02/01/22 Rx cefUROXime axetiL [Ceftin] 500 mg PO BID 5 Days #10 tab 02/01/22 Rx Allergies Allergy/AdvReac Type Severity Reaction Status Date / Time No Known Allergies Allergy Verified 03/07/22 00:02 Physical Exam Vitals: Vital Signs Temp Pulse Resp BP Pulse Ox 03/07/22 00:00 98.5 F 97 19 97/64 99 Intake and Output 03/06/22 03/06/22 03/07/22 14:59 22:59 06:59 Other: Weight 58.967 kg Results CBC & Chem 7: 03/07/22 01:26 03/07/22 01:26 Labs: Abnormal Lab Results - Last 24 Hours (Table) 03/07/22 03/07/22 03/07/22 Range/Units 01:26 01:26 01:26 RBC 3.45 L (3.80-5.40) m/uL Hgb 8.8 L (11.4-16.0) gm/dL Hct 29.5 L (34.0-46.0) % MCHC 29.7 L (31.0-37.0) g/dL RDW 19.7 H (11.5-15.5) % PT 14.1 H (9.0-12.0) sec INR 1.4 H (<1.2) Sodium 132 L (137-145) mmol/L Potassium 3.1 L (3.5-5.1) mmol/L Chloride 94 L (98-107) mmol/L BUN 39 H (7-17) mg/dL Creatinine 5.41 H (0.52-1.04) mg/dL Glucose 145 H (74-99) mg/dL Troponin I (0.000-0.034) ng/mL Total Protein 6.1 L (6.3-8.2) g/dL Albumin 3.4 L (3.5-5.0) g/dL 03/07/22 Range/Units 01:26 RBC (3.80-5.40) m/uL Hgb (11.4-16.0) gm/dL Hct (34.0-46.0) % MCHC (31.0-37.0) g/dL RDW (11.5-15.5) % PT (9.0-12.0) sec INR (<1.2) Sodium (137-145) mmol/L Potassium (3.5-5.1) mmol/L Chloride (98-107) mmol/L BUN (7-17) mg/dL Creatinine (0.52-1.04) mg/dL Glucose (74-99) mg/dL Troponin I 0.572 H* (0.000-0.034) ng/mL Total Protein (6.3-8.2) g/dL Albumin (3.5-5.0) g/dL
[2022-03-07] MEDS ORDERED: GABAPENTIN 100 MG CAP PO STA (06:07)
[2022-03-07] MEDS: HEPARIN SOD,PORK IN 0.45% NACL 25,000 UNIT in 0.45% NACL 1 250ML.BAG IV SCH (06:55)
[2022-03-07] MEDS ORDERED: ONDANSETRON 4 MG/2 ML VIAL IVP STA (06:58)
[2022-03-07] MEDS: INSULIN ASPART (NovoLOG) 100 UNIT/ML VIAL SQ SCH ×4 (07:21→20:02)
[2022-03-07 07:22] LABS: Glucose,Whole Blood 140 mg/dL (70-110)
[2022-03-07 07:36] LABS: Anisocytosis Slight; Basophils % (A) 1 %; Eosinophils # (A) 0.1 k/uL (0-0.7); Eosinophils % (A) 3 %; HCT 30.1 % (34.0-46.0); HGB 8.7 gm/dL (11.4-16.0); Hypochromasia Marked; Lymphocytes # (A) 1.3 k/uL (1.0-4.8); Lymphocytes % (A) 28 %; MCH 25.2 pg (25.0-35.0); MCHC 28.8 g/dL (31.0-37.0); MCV 87.4 fL (80.0-100.0); Mean Platelet Volume 8.2; Monocytes # (A) 0.3 k/uL (0-1.0); Monocytes % (A) 7 %; Neutrophils # (A) 2.8 k/uL (1.3-7.7); Neutrophils % (A) 61 %; Platelet Count 249 k/uL (150-450); RBC 3.44 m/uL (3.80-5.40); RDW 19.6 % (11.5-15.5); WBC 4.7 k/uL (3.8-10.6)
[2022-03-07 08:26] LABS: Calcium 8.4 mg/dL (8.4-10.2); Potassium 3.2 mmol/L (3.5-5.1)
[2022-03-07] MEDS ORDERED: POTASSIUM CHLORIDE ER 20 MEQ TAB.ER PO STA (09:17)
--- NOTE | 2022-03-07 09:19 | P.NPCON ---
History of Present Illness - Reason for Consult end stage renal disease - History of Present Illness Reason for consultation: End-stage renal disease History of present illness: Patient is a 47-year-old female seen in renal consultation for end-stage renal disease. Patient was seen and examined in the emergency room. She is maintained on home hemodialysis and has a right upper extremity AV graft. Pat ient states she does for hemodialysis treatments per week. Last treatment was Friday morning with minimal ultrafiltration. Patient has history of coronary artery disease with 4 cardiac stents. Most recent stent was placed about 3 months ago. Patient presented to the hospital after he developed chest pain. Patient states the pain was squeezing in nature and she was concerned about having an ME. She is currently on heparin drip. Chest pain has improved. Oral intake fair. No vomiting or diarrhea. No fever or chills. Hemodynamically stable. Patient has long-standing history of diabetes. Patient has decent urine output. Vital signs are stable. General: Awake and alert. No acute distress. HEENT: Head exam is unremarkable. LUNGS: Breath sounds decreased. HEART: Rate and Rhythm are regular. ABDOMEN: Soft, no distention. EXTREMITITES: No edema. Past Medical History Past Medical History: Coronary Artery Disease (CAD), Heart Failure, Diabetes Mellitus, Dialysis, Eye Disorder, GERD/Reflux, Hyperlipidemia, Hypertension, Myocardial Infarction (ME), Renal Disease Additional Past Medical History / Comment(s): IDDM type II, neuropathy bilateral feet, ESRD with home hemodialysis, anemia, bilateral retinal bleeds, sepsis with respiratory failure and vented once, RLS, hiatal hernia, diverticular disease, possible colitis, migraines, shingelles in 2016, Jehovah Witness/NO BLOOD PRODUCTS. Last Myocardial Infarction Date:: 08/2020 History of Any Multi-Drug Resistant Organisms: None Reported Past Surgical History: Bowel Resection, Breast Surgery, Cholecystectomy, Heart Catheterization With Stent, Hernia Repair Additional Past Surgical History / Comment(s): R breast biopsy X 2 both benign, breast reduction, akosua cataracts removed HAS HAD 2 PERITONEAL DIALYSIS CATHETERS, AND 5 HEMODIALYSIS CATHETHERS, umbilical hernia repair with ischemic bowel within-small resection, colonoscopy/EGD. Removed L Ovary. Graft R arm. Past Anesthesia/Blood Transfusion Reactions: Motion Sickness, Postoperative Nausea & Vomiting (PONV) Additional Past Anesthesia/Blood Transfusion Reaction / Comment(s): NO BLOOD PRODUCTS-pt is a Hinduism Date of Last Stent Placement:: 09/20/21 Smoking Status: Never smoker - Past Family History Mother Family Medical History: Osteoarthritis (OA) Additional Family Medical History / Comment(s): . Father Family Medical History: Cancer Additional Family Medical History / Comment(s): Father of LIVER cancer at age 61 yrs. Medications and Allergies Home Medications Medication Instructions Recorded Confirmed Type Magnebind 300 1 tab PO TID-W/MEALS 03/17/19 03/07/22 History rOPINIRole HCL [Requip] 1 mg PO BID 03/17/19 03/07/22 History Gabapentin [Neurontin] 200 mg PO DAILY@1200 07/16/21 03/07/22 History Calcium Acetate [PhosLo] 1,334 mg PO TID-W/MEALS 08/16/21 03/07/22 History Cinacalcet HCl [Sensipar] 90 mg PO MOTUWETHFR 08/16/21 03/07/22 History Ergocalciferol (Vitamin D2) 1,250 mcg PO MO 08/16/21 03/07/22 History [Drisdol (50,000 Iu)] Lidocaine-Prilocaine Cream [Emla 1 applic TOPICAL DAILY PRN 08/16/21 03/07/22 History Cream 2.5%/2.5%] Omeprazole 20 mg PO DAILY 08/16/21 03/07/22 History calcitrioL [Calcitriol] 1 mcg PO DAILY 08/16/21 03/07/22 History rOPINIRole HCL [Requip] 0.25 mg PO BID 08/16/21 03/07/22 History Atorvastatin [Lipitor] 80 mg PO DAILY 30 Days #30 tab 08/20/21 03/07/22 Rx Clopidogrel [Plavix] 75 mg PO DAILY 30 Days #30 tab 08/20/21 03/07/22 Rx Nitroglycerin Sl Tabs [Nitrostat] 0.4 mg SUBLINGUAL Q5M PRN #25 tab 08/20/21 03/07/22 Rx Zolpidem [Ambien] 5 mg PO HS PRN 09/20/21 03/07/22 History Metoprolol Tartrate [Lopressor] 25 mg PO BID #60 tab 09/22/21 03/07/22 Rx Aspirin 81 mg PO DAILY 01/30/22 03/07/22 History Cyclobenzaprine [Flexeril] 10 mg PO TID PRN 01/30/22 03/07/22 History Gabapentin [Neurontin] 400 mg PO HS 01/30/22 03/07/22 History Albuterol Inhaler [Ventolin Hfa 1 puff INHALATION RT-QID PRN 30 02/01/22 03/07/22 Rx Inhaler] Days #8 gm Isosorbide Mononitrate ER [Imdur] 30 mg PO DAILY 30 Days #30 tab 02/01/22 03/07/22 Rx Midodrine [ProAmatine] 5 mg PO TID 30 Days #90 tab 02/01/22 03/07/22 Rx Pantoprazole [Protonix] 40 mg PO BID 30 Days #60 tab 02/01/22 03/07/22 Rx Amitriptyline HCl 10 mg PO HS 03/07/22 03/07/22 History Allergies Allergy/AdvReac Type Severity Reaction Status Date / Time No Known Allergies Allergy Verified 03/07/22 00:02 Physical Exam Vitals: Vital Signs Temp Pulse Resp BP Pulse Ox 03/07/22 00:00 98.5 F 97 19 97/64 99 Intake and Output 03/06/22 03/07/22 03/07/22 22:59 06:59 14:59 Other: Weight 58.967 kg 58.967 kg Results - Lab Results Most recent lab results Calcium 8.4 mg/dL (8.4-10.2) 03/07/22 07:22 Magnesium 1.6 mg/dL (1.6-2.3) 03/07/22 01:26 03/07/22 07:22 03/07/22 07:22 Assessment and Plan Plan: Assessment: 1. End-stage renal disease maintained on home hemodialysis via right upper extremity AV graft. 2. Chest pain. On heparin drip. 3. Coronary artery disease status post cardiac stenting. 4. Hypokalemia from poor intake and low potassium dialysate. 5. Chronic kidney disease mineral bone disease maintained on phosphate binders and calcitriol outpatient. 6. Anemia of chronic kidney disease. Rule out iron deficiency. Plan: Hemodialysis tomorrow. Check phosphorus level. Check iron studies. Replace potassium. Await cardiology recommendation. Thank you for the consultation. I will continue to follow the patient with you during her hospital stay.
[2022-03-07] MEDS: NITROGLYCERIN OINT 1 INCH/GM PACKET TOPICAL SCH ×2 (09:36→09:38)
[2022-03-07] MEDS: ASPIRIN 81 MG PO SCH (09:37)
[2022-03-07] MEDS ORDERED: ISOSORBIDE MONONITRATE ER 30 MG TAB.ER.24H PO SCH (10:00)
--- NOTE | 2022-03-07 10:08 | ED ---
Chest Pain HPI - General Chief Complaint: Chest Pain Stated Complaint: Chest Pain Time Seen by Provider: 03/07/22 00:25 Source: patient Mode of arrival: wheelchair - History of Present Illness Initial Comments: This patient is a 47-year-old woman who presents to have evaluation of chest pain and dyspnea. Patient has history of end-stage renal disease on dialysis. Also history of hypertension and diabetes. Patient states that the symptoms have been coming on over the course of the evening much worse when trying to sleep. She states that she did perform dialysis earlier in the day though she does not believe she got down to her target weight. Patient had not noted fever or chills. There is no productive cough. She has not noted change in her legs. Patient does not produce urine. MD Complaint: chest pain, other -: hour(s) Onset: during rest Pain Location: substernal Pain Radiation: none Severity: mild Quality: heaviness Consistency: constant Improves With: nothing Worsens With: nothing Anginal Symptoms: dyspnea Treatments Prior to Arrival: none - Related Data Home Medications Medication Instructions Recorded Confirmed Magnebind 300 1 tab PO TID-W/MEALS 03/17/19 03/07/22 rOPINIRole HCL [Requip] 1 mg PO BID 03/17/19 03/07/22 Gabapentin [Neurontin] 200 mg PO DAILY@1200 07/16/21 03/07/22 Calcium Acetate [PhosLo] 1,334 mg PO TID-W/MEALS 08/16/21 03/07/22 Cinacalcet HCl [Sensipar] 90 mg PO MOTUWETHFR 08/16/21 03/07/22 Ergocalciferol (Vitamin D2) 1,250 mcg PO MO 08/16/21 03/07/22 [Drisdol (50,000 Iu)] Lidocaine-Prilocaine Cream [Emla 1 applic TOPICAL DAILY PRN 08/16/21 03/07/22 Cream 2.5%/2.5%] calcitrioL [Calcitriol] 1 mcg PO DAILY 08/16/21 03/07/22 rOPINIRole HCL [Requip] 0.25 mg PO BID 08/16/21 03/07/22 Zolpidem [Ambien] 5 mg PO HS PRN 09/20/21 03/07/22 Aspirin 81 mg PO DAILY 01/30/22 03/07/22 Cyclobenzaprine [Flexeril] 10 mg PO TID PRN 01/30/22 03/07/22 Gabapentin [Neurontin] 400 mg PO HS 01/30/22 03/07/22 Amitriptyline HCl 10 mg PO HS 03/07/22 03/07/22 Previous Rx's Medication Instructions Recorded Atorvastatin [Lipitor] 80 mg PO DAILY 30 Days #30 tab 08/20/21 Clopidogrel [Plavix] 75 mg PO DAILY 30 Days #30 tab 08/20/21 Nitroglycerin Sl Tabs [Nitrostat] 0.4 mg SUBLINGUAL Q5M PRN #25 tab 08/20/21 Metoprolol Tartrate [Lopressor] 25 mg PO BID #60 tab 09/22/21 Albuterol Inhaler [Ventolin Hfa 1 puff INHALATION RT-QID PRN 30 02/01/22 Inhaler] Days #8 gm Isosorbide Mononitrate ER [Imdur] 30 mg PO DAILY 30 Days #30 tab 02/01/22 Midodrine [ProAmatine] 5 mg PO TID 30 Days #90 tab 02/01/22 Pantoprazole [Protonix] 40 mg PO BID 30 Days #60 tab 02/01/22 Darbepoetin [place] [Aranesp] 40 mcg SQ Q7D each 03/08/22 Allergies Allergy/AdvReac Type Severity Reaction Status Date / Time No Known Allergies Allergy Verified 03/07/22 00:02 Review of Systems ROS Statement: Those systems with pertinent positive or pertinent negative responses have been documented in the HPI. ROS Other: All systems not noted in ROS Statement are negative. Constitutional: Denies: fever, chills Respiratory: Reports: dyspnea. Denies: cough, wheezes Cardiovascular: Reports: chest pain, orthopnea. Denies: palpitations, edema, syncope Gastrointestinal: Denies: abdominal pain, vomiting, diarrhea Genitourinary: Reports: as per HPI, other (And uric) Musculoskeletal: Denies: back pain Skin: Denies: rash Neurological: Denies: headache, weakness, numbness EKG Findings - EKG Results: EKG: interpreted by ERMD, sinus rhythm (Rate 96), normal axis - Blocks, [place], Hypertrophy, ST Abn: AV and intraventricular conduction: intraventricular conduction delay Past Medical History Past Medical History: Coronary Artery Disease (CAD), Heart Failure, Diabetes Mellitus, Dialysis, Eye Disorder, GERD/Reflux, Hyperlipidemia, Hypertension, Myocardial Infarction ([place]), Renal Disease Additional Past Medical History / Comment(s): IDDM type II, neuropathy bilateral feet, ESRD with home hemodialysis, anemia, bilateral retinal bleeds, sepsis with respiratory failure and vented once, RLS, hiatal hernia, diverticular disease, possible colitis, migraines, shingelles in 2016, Jehovah Witness/NO BLOOD PRODUCTS. Last Myocardial Infarction Date:: 08/2020 History of Any Multi-Drug Resistant Organisms: None Reported Past Surgical History: Bowel Resection, Breast Surgery, Cholecystectomy, Heart Catheterization With Stent, Hernia Repair Additional Past Surgical History / Comment(s): R breast biopsy X 2 both benign, breast reduction, akosua cataracts removed HAS HAD 2 PERITONEAL DIALYSIS CATHETERS, AND 5 HEMODIALYSIS CATHETHERS, umbilical hernia repair with ischemic bowel within-small resection, colonoscopy/EGD. Removed L Ovary. Graft R arm. Past Anesthesia/Blood Transfusion Reactions: Motion Sickness, Postoperative Nausea & Vomiting (PONV) Additional Past Anesthesia/Blood Transfusion Reaction / Comment(s): NO BLOOD PRODUCTS-pt is a Congregational Date of Last Stent Placement:: 09/20/21 Smoking Status: Never smoker - Past Family History Mother Family Medical History: Osteoarthritis (OA) Additional Family Medical History / Comment(s): . Father Family Medical History: Cancer Additional Family Medical History / Comment(s): Father of LIVER cancer at age 61 yrs. General Exam General appearance: alert, in no apparent distress Head exam: Present: atraumatic, normocephalic Eye exam: Present: normal appearance. Absent: scleral icterus, conjunctival injection Neck exam: Present: normal inspection Respiratory exam: Present: rales (Bilateral lower lung vega). Absent: wheezes, rhonchi, stridor Cardiovascular Exam: Present: regular rate, normal rhythm, normal heart sounds. Absent: systolic murmur, diastolic murmur, rubs, gallop GI/Abdominal exam: Present: soft. Absent: distended, tenderness, guarding, rebound, rigid, mass Extremities exam: Present: normal inspection, normal capillary refill. Absent: pedal edema, calf tenderness Back exam: Present: normal inspection Neurological exam: Present: alert Skin exam: Present: warm, dry, intact, normal color. Absent: rash Course Vital Signs 03/07/22 03/07/22 03/07/22 00:00 09:38 11:00 Temperature 98.5 F Pulse Rate 97 86 84 Respiratory 19 16 20 Rate Blood Pressure 97/64 96/67 100/69 O2 Sat by Pulse 99 95 100 Oximetry 03/07/22 03/07/22 03/07/22 11:30 12:00 12:30 Temperature Pulse Rate 81 81 79 Respiratory 18 16 18 Rate Blood Pressure 100/69 100/69 96/68 O2 Sat by Pulse 99 98 94 L Oximetry 03/07/22 03/07/22 13:00 13:30 Temperature Pulse Rate 79 77 Respiratory 18 16 Rate Blood Pressure 96/68 96/72 O2 Sat by Pulse 98 96 Oximetry Disposition Clinical Impression: Non-STEMI (non-ST elevated myocardial infarction), Chronic renal failure, Congestive heart failure Disposition: ADMITTED IP TO THIS HOSP Condition: Fair Is patient prescribed a controlled substance at d/c from ED?: No
[2022-03-07] MEDS: METOPROLOL TARTRATE 25 MG TAB PO SCH ×2 (11:24→20:10)
[2022-03-07] MEDS: CLOPIDOGREL 75 MG TAB PO SCH (11:24)
[2022-03-07 12:32] LABS: Glucose,Whole Blood 110 mg/dL (70-110)
[2022-03-07] MEDS ORDERED: ALBUTEROL NEBULIZED 2.5 MG/3 ML INHALATION PRN (12:43)
[2022-03-07] MEDS ORDERED: ZOLPIDEM 5 MG TAB PO PRN (12:43)
[2022-03-07] MEDS ORDERED: CYCLOBENZAPRINE 10 MG TAB PO PRN (12:43)
--- NOTE | 2022-03-07 13:07 | P.CRDCN ---
History of Present Illness History of present illness: This is a pleasant 47-year-old female past medical history significant for coronary artery disease s/p PCI to mid LAD and Proximal left circumflex 08/17/2021 and PCI LAD in 09/2021, type 2 diabetes, hypertension, dyslipidemia, end-stage renal disease on hemodialysis plans for evaluation for renal transplant at [facility]. She follows with Dr. Bauer in the office. We have been asked to see in consultation for elevated troponin. Patient presents emergency department with complaints of chest "squeezing". She states yesterday afternoon, she had discomfort in her chest. She describes it as squeezing. It was non-radiating, non-exertional. She had some nausea and shortness of breath. She also had some relief with Nitro, but her pain returned. She was given IV morphine, IV zofran, aspirin, and gapapentin in the ER. He pain has now improved, she describes it as mild. Her EKG with no significant ST changes. DIAGNOSTICS -EKG sinus rhythm HR 96, no acute ST ST-T wave abnormalities. Prior EKG with similar findings -Echocardiogram 01/2022 revealed EF 40-45%, severely increased left atrial volume, moderate mitral regurgitation, mild tricuspid regurgitation -Chest xray revealed pulmonary interstitial edema, similar findings from prior. -Laboratory reviewed, troponin 0.57, 0.66, 0.76, sodium 135, potassium 3.2, BUN 42, serum current 5.6, WBC 4.7, hemoglobin 8.7, platelets 249 -Current home medications include aspirin 81 mg daily, Plavix 75 mg daily, atorvastatin 80 mg daily, midodrine 10 mg 3 times a day, metoprolol tartrate 12.5 mg twice a day -Cardiac catheterization 09/2021 revealed- CAD with proximal LAD 90% stenosis s/p PCI proximal LAD, Residual circumflex 50-60% stenosis REVIEW OF SYSTEMS At the time of my exam: CONSTITUTIONAL: Denies fever or chills. CARDIOVASCULAR: +chest pain, resolved. +shortness of breath,Denies orthopnea, PND or palpitations. RESPIRATORY: Denies cough GASTROINTESTINAL: Denies abdominal pain, diarrhea, constipation, nausea or vomiting. MUSCULOSKELETAL: Denies myalgias. NEUROLOGIC: Denies numbness, tingling, headache or weakness. ENDOCRINE: Denies fatigue, weight change, polydipsia or polyurina. GENITOURINARY: Denies burning, hematuria or urgency with micturation. HEMATOLOGIC: +history of anemia Denies bleeding. PHYSICAL EXAMINATION Vitals reviewed CONSTITUTIONAL: No apparent distress. HEENT: Head is normocephalic. Pupils are equal, round. Sclerae anicteric. Mucous membranes of the mouth are moist. No JVD. No carotid bruit. CHEST EXAMINATION: Lungs diminished bilateral bases to auscultation. No chest wall tenderness is noted on palpation or with deep breathing. HEART EXAMINATION: Regular rate and rhythm. S1, S2 heard. Systolic ejection murmur noted. ABDOMEN: Soft, nontender. Positive bowel sounds. EXTREMITIES: 2+ peripheral pulses, no lower extremity edema and no calf tenderness. SKIN: warm, dry NEUROLOGIC EXAMINATION: Patient is awake, alert and oriented x3. ASSESSMENT Chest pain Elevated troponin, possibly related to renal disease, however, rule out NSTEMI End stage renal disease on hemodialysis Coronary artery disease s/p PCI to mid LAD and Proximal left circumflex 08/17/2021, PCI LAD in 09/2021 Type 2 Diabetes Dyslipidemia PLAN Continue IV heparin Continue aspirin, statin, Plavix Continue home Imdur, beta nishant Continue cardiac telemetry Limited Echo to evaluate LV function Will monitor patient and chest discomfort, NPO after midnight if intervention is indicated. Further recommendations based on clinical course Thank you kindly for this consultation. Nurse Practitioner note has been reviewed, I agree with a documented findings and plan of care. Patient was seen and examined. Past Medical History Past Medical History: Heart Failure, Diabetes Mellitus, Dialysis, GERD/Reflux, Hyperlipidemia, Hypertension, Renal Disease Additional Past Medical History / Comment(s): End stage RENAL FAILURE WITH CURRENT HEMODIALYSIS @ home. Hx of respiratory failure due to sepsis and was vented once, Hx of IDDM type II, diabetic neuropathy bilateral feet, hx. of anemia, hiatal hernia, [id number].Migraines. History of Any Multi-Drug Resistant Organisms: None Reported Past Surgical History: Bowel Resection, Breast Surgery, Cholecystectomy, Hernia Repair Additional Past Surgical History / Comment(s): R breast biopsy X 2 both benign, breast reduction, akosua cataracts removed HAS HAD 2 PERITONEAL DIALYSIS CATHETERS, AND 5 HEMODIALYSIS CATHETHERS, umbilical hernia repair with ischemic bowel within-small resection, colonoscopy/EGD. Removed L Ovary. Graft R arm. Past Anesthesia/Blood Transfusion Reactions: Motion Sickness, Postoperative Nausea & Vomiting (PONV) Additional Past Anesthesia/Blood Transfusion Reaction / Comment(s): no blood products-pt is a [employer] Date of Last Stent Placement:: 08/17/21 Past Psychological History: No Psychological Hx Reported Smoking Status: Never smoker Past Alcohol Use History: None Reported, Rare Past Drug Use History: None Reported - Past Family History Mother Family Medical History: Osteoarthritis (OA) Additional Family Medical History / Comment(s): . Father Family Medical History: Cancer Additional Family Medical History / Comment(s): Father of LIVER cancer at age 61 yrs. Medications and Allergies Home Medications Medication Instructions Recorded Confirmed Type Magnebind 300 1 tab PO TID-W/MEALS 03/17/19 03/07/22 History rOPINIRole HCL [Requip] 1 mg PO BID 03/17/19 03/07/22 History Gabapentin [Neurontin] 200 mg PO DAILY@1200 07/16/21 03/07/22 History Calcium Acetate [PhosLo] 1,334 mg PO TID-W/MEALS 08/16/21 03/07/22 History Cinacalcet HCl [Sensipar] 90 mg PO MOTUWETHFR 08/16/21 03/07/22 History Ergocalciferol (Vitamin D2) 1,250 mcg PO MO 08/16/21 03/07/22 History [Drisdol (50,000 Iu)] Lidocaine-Prilocaine Cream [Emla 1 applic TOPICAL DAILY PRN 08/16/21 03/07/22 History Cream 2.5%/2.5%] Omeprazole 20 mg PO DAILY 08/16/21 03/07/22 History calcitrioL [Calcitriol] 1 mcg PO DAILY 08/16/21 03/07/22 History rOPINIRole HCL [Requip] 0.25 mg PO BID 08/16/21 03/07/22 History Atorvastatin [Lipitor] 80 mg PO DAILY 30 Days #30 tab 08/20/21 03/07/22 Rx Clopidogrel [Plavix] 75 mg PO DAILY 30 Days #30 tab 08/20/21 03/07/22 Rx Nitroglycerin Sl Tabs [Nitrostat] 0.4 mg SUBLINGUAL Q5M PRN #25 tab 08/20/21 03/07/22 Rx Zolpidem [Ambien] 5 mg PO HS PRN 02/17/22 08/04/22 History Metoprolol Tartrate [Lopressor] 25 mg PO BID #60 tab 09/22/21 03/07/22 Rx Aspirin 81 mg PO DAILY 01/30/22 03/07/22 History Cyclobenzaprine [Flexeril] 10 mg PO TID PRN 01/30/22 03/07/22 History Gabapentin [Neurontin] 400 mg PO HS 01/30/22 03/07/22 History Albuterol Inhaler [Ventolin Hfa 1 puff INHALATION RT-QID PRN 30 02/01/22 03/07/22 Rx Inhaler] Days #8 gm Isosorbide Mononitrate ER [Imdur] 30 mg PO DAILY 30 Days #30 tab 02/01/22 03/07/22 Rx Midodrine [ProAmatine] 5 mg PO TID 30 Days #90 tab 02/01/22 03/07/22 Rx Pantoprazole [Protonix] 40 mg PO BID 30 Days #60 tab 02/01/22 03/07/22 Rx Amitriptyline HCl 10 mg PO HS 03/07/22 03/07/22 History Allergies Allergy/AdvReac Type Severity Reaction Status Date / Time No Known Allergies Allergy Verified 03/07/22 00:02 Physical Exam Vitals: Vital Signs Temp Pulse Resp BP Pulse Ox 03/07/22 00:00 98.5 F 97 19 97/64 99 Intake and Output 03/06/22 03/07/22 03/07/22 22:59 06:59 14:59 Other: Weight 58.967 kg Results 03/07/22 07:22 03/07/22 07:22 Cardiac Enzymes 03/07/22 03/07/22 03/07/22 Range/Units 01:26 01:26 05:16 AST 15 (14-36) U/L Troponin I 0.572 H* 0.666 H* (0.000-0.034) ng/mL Coagulation 03/07/22 Range/Units 01:26 PT 14.1 H (9.0-12.0) sec APTT 27.7 (22.0-30.0) sec CBC 03/07/22 03/07/22 Range/Units 01:26 07:22 WBC 6.4 4.7 (3.8-10.6) k/uL RBC 3.45 L 3.44 L (3.80-5.40) m/uL Hgb 8.8 L 8.7 L (11.4-16.0) gm/dL Hct 29.5 L 30.1 L (34.0-46.0) % Plt Count 235 249 (150-450) k/uL Comprehensive Metabolic Panel 03/07/22 Range/Units 01:26 Sodium 132 L (137-145) mmol/L Potassium 3.1 L (3.5-5.1) mmol/L Chloride 94 L (98-107) mmol/L Carbon Dioxide 28 (22-30) mmol/L BUN 39 H (7-17) mg/dL Creatinine 5.41 H (0.52-1.04) mg/dL Glucose 145 H (74-99) mg/dL Calcium 8.7 (8.4-10.2) mg/dL AST 15 (14-36) U/L ALT 7 (4-34) U/L Alkaline Phosphatase 64 (38-126) U/L Total Protein 6.1 L (6.3-8.2) g/dL Albumin 3.4 L (3.5-5.0) g/dL Current Medications Generic Name Dose Route Start Last Admin Trade Name Freq PRN Reason Stop Dose Admin Aspirin 81 mg 03/07/22 09:00 Aspirin 81 Mg PO DAILY [facility] Atorvastatin Calcium 80 mg 03/07/22 21:00 Atorvastatin 80 Mg Tab PO HS [facility] Heparin Sodium (Porcine) 0 unit 03/07/22 03:41 Heparin Sodium 1,000 Un/Ml (10ml Vl) IV PER PROTOCOL PRN Low PTT Protocol Heparin Sodium/Sodium Chloride 250 mls @ 7.076 mls/hr 03/07/22 03:45 03/07/22 06:55 25,000 unit/ Sodium Chloride IV 12 units/kg/hr .Q24H ALO 7.076 mls/hr Administration Protocol 12 UNITS/KG/HR Insulin Aspart 0 unit 03/07/22 07:30 03/07/22 07:21 Insulin Aspart (Novolog) 100 Unit/Ml Vial SQ Not Given ACHS [facility] Protocol Nitroglycerin 1 inch 03/07/22 09:00 Nitroglycerin Oint 1 Inch/Gm Packet TOPICAL QID [facility] Sodium Chloride 10 ml 03/07/22 09:00 Sodium Chloride 0.9% Flush 10 Ml Syringe IV BID ALO Intake and Output 03/06/22 03/07/22 03/07/22 22:59 06:59 14:59 Other: Weight 58.967 kg 03/07/22 07:22 03/07/22 01:26
[2022-03-07 13:51] LABS: INR 1.3 (<1.2); Partial Thromboplastin Time 35.7 sec (22.0-30.0); Prothrombin Time 13.8 sec (9.0-12.0)
[2022-03-07] MEDS: CINACALCET 30 MG TAB PO SCH (13:51)
[2022-03-07 14:14] VITALS: BMI 23.0
--- NOTE | 2022-03-07 15:20 | CA ---
Transthoracic Echo Report Name: Mónica Titus Age: 47 Gender: F : 1975 Exam Date: 03/07/2022 09:41 Exam Location: [place] Echo Ht (in): 63 Wt (lb): 130 Ordering Physician: Mercedez Jin MD Attending/Referring Phys: Ammonia Box Operator Thu Pickett RDCS Procedure CPT: Indications: nstemi Cardiac Hx: Technical Quality: Good Contrast 1: Total Dose (mL): Contrast 2: Total Dose (mL): MEASUREMENTS (Male / Female) Normal Values 2D ECHO LV Diastolic Diameter PLAX 4.8 cm 4.2 - 5.9 / 3.9 - 5.3 cm LV Systolic Diameter PLAX 4.0 cm IVS Diastolic Thickness 1.2 cm 0.6 - 1.0 / 0.6 - 0.9 cm LVPW Diastolic Thickness 1.1 cm 0.6 - 1.0 / 0.6 - 0.9 cm LV Relative Wall Thickness 0.5 RV Internal Dim ED PLAX 3.1 cm LA Systolic Diameter LX 3.8 cm 3.0 - 4.0 / 2.7 - 3.8 cm LA Volume 75.2 cm??? 18 - 58 / 22 - 52 cm??? M-MODE Aortic Root Diameter MM 3.0 cm MV E Point Septal Separation 1.1 cm AV Cusp Separation MM 2.0 cm DOPPLER AV Peak Velocity 109.8 cm/s AV Peak Gradient 4.8 mmHg MV Area PHT 4.3 cm??? Mitral E Point Velocity 135.4 cm/s Mitral A Point Velocity 57.2 cm/s Mitral E to A Ratio 2.4 MV Deceleration Time 175.4 ms MV E' Velocity 4.9 cm/s Mitral E to MV E' Ratio 27.5 TR Peak Velocity 296.4 cm/s TR Peak Gradient 35.1 mmHg Right Ventricular Systolic Press 49.3 mmHg FINDINGS Left Ventricle Left ventricular ejection fraction is estimated at 40-45 %. Left ventricular cavity size normal. Borderline left ventricular hypertrophy. Basel inferior wall hypokinesis Right Ventricle Normal right ventricular size and function. Moderate pulmonary hypertension. Right Atrium Normal right atrial size. Left Atrium Severely increased left atrial volume. Mildly increased left atrial area. No evidence for an atrial septal defect. Mitral Valve Mitral valve thickened. Mild mitral annular calcification. Moderate mitral regurgitation. Aortic Valve Trileaflet aortic valve. No aortic valve stenosis or regurgitation. Tricuspid Valve Mild tricuspid regurgitation. Pulmonic Valve Mild pulmonic regurgitation. Pericardium Normal pericardium. No pericardial effusion. Aorta Normal size aortic root and proximal ascending aorta. CONCLUSIONS Reduced LV systolic function, global ejection fraction 40% Moderate-Severe mitral regurgitation, left atrial enlargement Previewed by: Dr. Reece Miller MD (Electronically Signed) Final Date: 07 March 2022 15:20
[2022-03-07 17:08] LABS: Glucose,Whole Blood 125 mg/dL (70-110)
[2022-03-07] MEDS: CALCIUM ACETATE 667 MG TAB PO SCH (17:18)
[2022-03-07] MEDS: MIDODRINE 5 MG TAB PO SCH ×2 (17:18→20:10)
[2022-03-07 19:59] LABS: Glucose,Whole Blood 116 mg/dL (70-110)
[2022-03-07] MEDS: GABAPENTIN 400 MG CAP PO SCH (20:10)
[2022-03-07] MEDS: PANTOPRAZOLE 40 MG TABLET PO SCH (20:10)
[2022-03-07] MEDS: ATORVASTATIN 80 MG TAB PO SCH (20:10)
[2022-03-07 23:57] LABS: % Iron Saturation 25.35 (12.00-45.00)
[2022-03-08 03:57] LABS: Anisocytosis Slight; Basophils % (A) 0 %; Eosinophils # (A) 0.2 k/uL (0-0.7); Eosinophils % (A) 4 %; HCT 30.9 % (34.0-46.0); HGB 9.2 gm/dL (11.4-16.0); Hypochromasia Marked; Lymphocytes # (A) 1.7 k/uL (1.0-4.8); Lymphocytes % (A) 27 %; MCH 25.5 pg (25.0-35.0); MCHC 29.7 g/dL (31.0-37.0); MCV 85.8 fL (80.0-100.0); Mean Platelet Volume 8.6; Microcytosis Slight; Monocytes # (A) 0.2 k/uL (0-1.0); Monocytes % (A) 4 %; Neutrophils % (A) 64 %; Platelet Count 250 k/uL (150-450); RDW 19.6 % (11.5-15.5); WBC 6.3 k/uL (3.8-10.6)
[2022-03-08 05:58] LABS: Glucose,Whole Blood 125 mg/dL (70-110)
[2022-03-08] MEDS: INSULIN ASPART (NovoLOG) 100 UNIT/ML VIAL SQ SCH ×3 (06:01→19:12)
[2022-03-08] MEDS: CALCIUM ACETATE 667 MG TAB PO SCH ×3 (06:24→17:57)
--- NOTE | 2022-03-08 07:44 | P.PN ---
Progress Note - Text Progress Note Date: 03/07/22 This is a late note entry. Patient was seen around 12:30 PM on 03/07/2022. She reported cessation of her chest pain at that time. She had no other complaints. She was in no acute distress. Non-ST elevation SC -Continue heparin infusion -Continue with aspirin, statin -Cardiology consulted -Echocardiogram ordered -Trend troponin -Cardiac monitoring Normocytic anemia, likely due to ESRD -Iron studies Hypokalemia -Monitor for now as patient is ESRD -Daily BMP Chronic conditions: Type II DM, ESRD, hypertension, hyperlipidemia -Continue with home meds -Nephrology consult for dialysis -Plans for dialysis on 03/08/2022 DVT prophylaxis -Heparin infusion The patient is admitted with an anticipated less than 2 midnight stay for evaluation of non-ST elevation SC. CODE STATUS: Full Code Discussed with: Patient
[2022-03-08] MEDS: CLOPIDOGREL 75 MG TAB PO SCH (08:51)
[2022-03-08] MEDS: MIDODRINE 5 MG TAB PO SCH ×3 (08:51→17:57)
[2022-03-08] MEDS: ASPIRIN 81 MG PO SCH (08:51)
[2022-03-08] MEDS: PANTOPRAZOLE 40 MG TABLET PO SCH (08:51)
[2022-03-08] MEDS: CINACALCET 30 MG TAB PO SCH (08:51)
[2022-03-08] MEDS: HEPARIN SOD,PORK IN 0.45% NACL 25,000 UNIT in 0.45% NACL 1 250ML.BAG IV SCH ×2 (08:52→16:48)
--- NOTE | 2022-03-08 08:58 | P.PN ---
Subjective Patient is seen in follow-up for end-stage liver disease. She is maintained on home hemodialysis. Denies any active chest pain or shortness of breath. No active complaints. Vital signs are stable. General: Awake. No acute distress. HEENT: Head exam is unremarkable. LUNGS: Breath sounds decreased. HEART: Rate and Rhythm are regular. ABDOMEN: Soft, no distention. EXTREMITITES: No edema. Objective - Vital Signs Vital signs: Vital Signs Temp 97.9 F 03/08/22 04:00 Pulse 79 03/08/22 04:00 Resp 16 03/08/22 04:00 BP 91/59 03/08/22 04:00 Pulse Ox 97 03/08/22 00:00 FiO2 Intake & Output 03/07/22 03/08/22 03/08/22 18:59 06:59 18:59 Intake Total 292.362 253.702 35.822 Balance 292.362 253.702 35.822 Weight 58.967 kg Intake: Intake, IV Titration 52.362 133.702 35.822 Amount Heparin Sod,Pork in 0.45% 52.362 133.702 35.822 NaCl 25,000 unit In 0.45 % NaCl 1 250ml.bag @ 12 UNITS/KG/HR 7.076 mls/hr IV .Q24H ALO Rx#: [id number] Oral 240 120 Other: # Voids 0 - Labs CBC & Chem 7: 03/08/22 03:42 03/07/22 07:22 Labs: Abnormal Lab Results - Last 24 Hours (Table) 03/07/22 03/07/22 03/07/22 Range/Units 13:11 13:11 17:06 RBC (3.80-5.40) m/uL Hgb (11.4-16.0) gm/dL Hct (34.0-46.0) % MCHC (31.0-37.0) g/dL RDW (11.5-15.5) % PT 13.8 H (9.0-12.0) sec INR 1.3 H (<1.2) APTT 35.7 H (22.0-30.0) sec POC Glucose (mg/dL) 125 H (70-110) mg/dL Phosphorus 8.0 H (2.5-4.5) mg/dL Iron 44 L (50-170) ug/dL TIBC 174 L (228-460) ug/dL Transferrin 124.0 L (204.0-354.0) mg/dL Ferritin 1293.0 H (10.0-291.0) ng/mL 03/07/22 03/07/22 03/08/22 Range/Units 19:56 20:09 03:42 RBC 3.60 L (3.80-5.40) m/uL Hgb 9.2 L (11.4-16.0) gm/dL Hct 30.9 L (34.0-46.0) % MCHC 29.7 L (31.0-37.0) g/dL RDW 19.6 H (11.5-15.5) % PT (9.0-12.0) sec INR (<1.2) APTT 33.9 H (22.0-30.0) sec POC Glucose (mg/dL) 116 H (70-110) mg/dL Phosphorus (2.5-4.5) mg/dL Iron (50-170) ug/dL TIBC (228-460) ug/dL Transferrin (204.0-354.0) mg/dL Ferritin (10.0-291.0) ng/mL 03/08/22 03/08/22 Range/Units 03:42 05:56 RBC (3.80-5.40) m/uL Hgb (11.4-16.0) gm/dL Hct (34.0-46.0) % MCHC (31.0-37.0) g/dL RDW (11.5-15.5) % PT (9.0-12.0) sec INR (<1.2) APTT 75.4 H (22.0-30.0) sec POC Glucose (mg/dL) 125 H (70-110) mg/dL Phosphorus (2.5-4.5) mg/dL Iron (50-170) ug/dL TIBC (228-460) ug/dL Transferrin (204.0-354.0) mg/dL Ferritin (10.0-291.0) ng/mL Assessment and Plan Plan: Assessment: 1. End-stage renal disease maintained on home hemodialysis via right upper extremity AV graft. 2. Chest pain. On heparin drip. Cardiology following. 3. Coronary artery disease status post cardiac stenting. 4. Hypokalemia from poor intake and low potassium dialysate. Replaced. 5. Chronic kidney disease mineral bone disease maintained on phosphate binders, sensipar and calcitriol outpatient. Phosphorus 8.0. 6. Anemia of chronic kidney disease. Iron replete. 7. Cardiomyopathy with ejection fraction of 40-45% and moderate pulmonary hypertension. Plan: Hemodialysis today. PhosLo resumed. Add Aranesp. Maintain midodrine.
[2022-03-08] MEDS ORDERED: ATORVASTATIN 80 MG TAB PO SCH (09:00)
[2022-03-08] MEDS ORDERED: DARBEPOETIN ALFA 40 MCG/0.4 ML SYRINGE SQ SCH (09:00)
[2022-03-08] MEDS ORDERED: ASPIRIN 81 MG PO SCH (09:00)
[2022-03-08 09:12] LABS: Calcium 8.3 mg/dL (8.4-10.2); Potassium 4.4 mmol/L (3.5-5.1)
[2022-03-08] MEDS ORDERED: MIDODRINE 5 MG TAB PO PRN (10:37)
[2022-03-08] MEDS: GABAPENTIN 100 MG CAP PO SCH (11:05)
[2022-03-08 11:57] LABS: Glucose,Whole Blood 114 mg/dL (70-110)
[2022-03-08] MEDS ORDERED: ALPRAZolam 0.25 MG TAB PO PRN (12:17)
[2022-03-08] MEDS ORDERED: ALPRAZolam 0.5 MG TAB PO PRN (12:17)
[2022-03-08] MEDS ORDERED: EPINEPHrine 10 ML SYRINGE (0.1 MG/ML) ONE (12:28)
[2022-03-08] MEDS ORDERED: SODIUM CHLORIDE 0.9% 250 ML BAG ONE (12:28)
[2022-03-08] MEDS ORDERED: HEPARIN SODIUM 1,000 UN/ML (10ML VL) ONE ×2 (12:55→14:28)
[2022-03-08] MEDS: HEPARIN SODIUM 1,000 UN/ML (10ML VL) IV ONE ×3 (12:55→13:44)
[2022-03-08] MEDS ORDERED: niCARdipine 25 MG/10 ML VIAL ONE (12:59)
[2022-03-08] MEDS ORDERED: IV FLUID CONTINUATION 900 ML IV ONE (12:59)
[2022-03-08] MEDS ORDERED: TIROFIBAN 12.5MG-0.9% NS PMX 250 ML BAG IV ONE (13:00)
[2022-03-08] MEDS: PHENYLEPHRINE-0.9% NACL SYG 1,000 MCG/10 ML SYRINGE IV ONE ×3 (13:03→13:13)
[2022-03-08] MEDS ORDERED: EPINEPHrine 10 ML SYRINGE (0.1 MG/ML) IV ONE ×2 (13:09→13:14)
[2022-03-08] MEDS ORDERED: SODIUM BICARB SYR (1 MEQ/ML) 10 ML SYRINGE IV ONE ×2 (13:10→13:18)
[2022-03-08] MEDS: EPINEPHrine 4 MG in DEXTROSE 5% IN WATER 250 ML IV SCH ×2 (13:19)
--- NOTE | 2022-03-08 13:26 | P.PN ---
Subjective This is a pleasant 47-year-old female past medical history significant for coronary artery disease s/p PCI to mid LAD and Proximal left circumflex and PCI LAD in 09/2021, type 2 diabetes, hypertension, dyslipidemia, end-stage renal disease on hemodialysis plans for evaluation for renal transplant at [facility]. She follows with Dr. Bauer in the office. We have been asked to see in consultation for elevated troponin. Patient presents emergency department with complaints of chest "squeezing". She states yesterday afternoon, she had discomfort in her chest. She describes it as squeezing. It was non-radiating, non-exertional. She had some nausea and shortness of breath. She also had some relief with Nitro, but her pain returned. She was given IV morphine, IV zofran, aspirin, and gapapentin in the ER. He pain has now improved. Her EKG with no significant ST changes. She was started on IV heparin drip, Echo ordered with no significant changes EF 40-45%. Patient monitored overnight and admitted. 03/08/2022 Patient seen and examined this morning and was chest pain free. She was feeling well. Starting dialysis. Her pressures were slightly low but stable, 87/55. HR 70s-80s. She is currently maintained on IV heparin, aspirin, statin, beta nishant, imdur and midodrine. She cannot tolerate and ACEI/ARB secondary to hypotension. Later in the day around 11:45AM, RN called notifying of hypotension and chest tightness, during dialysis. Patient was apparently hunched over the side of the bed. Rapid response was called. Patient became hypotensive and bradycardic on dialysis. Hemodialysis was discontinued. She was stabilized. Patient was evaluated by Dr. Schaeffer and myself, Due to undergoing chest pain patient was recommended to go to Cardiac laboratory clerk. PHYSICAL EXAMINATION At time of exam: Vitals reviewed CONSTITUTIONAL: No apparent distress. HEENT: Head is normocephalic. Neck Supple No JVD. CHEST EXAMINATION: Lungs diminished bilateral bases to auscultation. No chest wall tenderness is noted on palpation or with deep breathing. HEART EXAMINATION: Regular rate and rhythm. S1, S2 heard. Systolic ejection murmur noted. ABDOMEN: Soft, nontender. Positive bowel sounds. EXTREMITIES: 2+ peripheral pulses, no lower extremity edema and no calf tenderness. SKIN: warm, dry NEUROLOGIC EXAMINATION: Patient is awake, alert lethargic ASSESSMENT Chest pain, concern for NSTEMI Elevated troponin, possibly related to renal disease, however, rule out NSTEMI Ischemic cardiomyopathy with EF 40-45% End stage renal disease on hemodialysis Coronary artery disease s/p PCI to mid LAD and Proximal left circumflex 08/17/2021, PCI LAD in 09/2021 Type 2 Diabetes Dyslipidemia PLAN Plan for immediate cardiac catheterization with Dr. Schaeffer Further recommendations based on clinical course Nurse Practitioner note has been reviewed, I agree with a documented findings and plan of care. Patient was seen and examined. Objective - Vital Signs Vital signs: Vital Signs Temp 98.1 F 03/08/22 08:51 Pulse 84 03/08/22 08:51 Resp 17 03/08/22 08:51 BP 87/55 03/08/22 08:51 Pulse Ox 99 03/08/22 08:51 FiO2 Intake & Output 03/07/22 03/08/22 03/08/22 18:59 06:59 18:59 Intake Total 292.362 253.702 43.045 Balance 292.362 253.702 43.045 Weight 58.967 kg Intake: Intake, IV Titration 52.362 133.702 43.045 Amount Heparin Sod,Pork in 0.45% 52.362 133.702 43.045 NaCl 25,000 unit In 0.45 % NaCl 1 250ml.bag @ 12 UNITS/KG/HR 7.076 mls/hr IV .Q24H ALO Rx#: [id number] Oral 240 120 Other: # Voids 0 - Labs CBC & Chem 7: 03/08/22 03:42 03/08/22 03:45 Labs: Abnormal Lab Results - Last 24 Hours (Table) 03/07/22 03/07/22 03/07/22 Range/Units 13:11 13:11 17:06 RBC (3.80-5.40) m/uL Hgb (11.4-16.0) gm/dL Hct (34.0-46.0) % MCHC (31.0-37.0) g/dL RDW (11.5-15.5) % PT 13.8 H (9.0-12.0) sec INR 1.3 H (<1.2) APTT 35.7 H (22.0-30.0) sec Sodium (137-145) mmol/L BUN (7-17) mg/dL Creatinine (0.52-1.04) mg/dL Glucose (74-99) mg/dL POC Glucose (mg/dL) 125 H (70-110) mg/dL Calcium (8.4-10.2) mg/dL Phosphorus 8.0 H (2.5-4.5) mg/dL Iron 44 L (50-170) ug/dL TIBC 174 L (228-460) ug/dL Transferrin 124.0 L (204.0-354.0) mg/dL Ferritin 1293.0 H (10.0-291.0) ng/mL Troponin I (0.000-0.034) ng/mL 03/07/22 03/07/22 03/08/22 Range/Units 19:56 20:09 03:42 RBC 3.60 L (3.80-5.40) m/uL Hgb 9.2 L (11.4-16.0) gm/dL Hct 30.9 L (34.0-46.0) % MCHC 29.7 L (31.0-37.0) g/dL RDW 19.6 H (11.5-15.5) % PT (9.0-12.0) sec INR (<1.2) APTT 33.9 H (22.0-30.0) sec Sodium (137-145) mmol/L BUN (7-17) mg/dL Creatinine (0.52-1.04) mg/dL Glucose (74-99) mg/dL POC Glucose (mg/dL) 116 H (70-110) mg/dL Calcium (8.4-10.2) mg/dL Phosphorus (2.5-4.5) mg/dL Iron (50-170) ug/dL TIBC (228-460) ug/dL Transferrin (204.0-354.0) mg/dL Ferritin (10.0-291.0) ng/mL Troponin I (0.000-0.034) ng/mL 03/08/22 03/08/22 03/08/22 Range/Units 03:42 03:45 05:56 RBC (3.80-5.40) m/uL Hgb (11.4-16.0) gm/dL Hct (34.0-46.0) % MCHC (31.0-37.0) g/dL RDW (11.5-15.5) % PT (9.0-12.0) sec INR (<1.2) APTT 75.4 H (22.0-30.0) sec Sodium 136 L (137-145) mmol/L BUN 49 H (7-17) mg/dL Creatinine 7.18 H* (0.52-1.04) mg/dL Glucose 111 H (74-99) mg/dL POC Glucose (mg/dL) 125 H (70-110) mg/dL Calcium 8.3 L (8.4-10.2) mg/dL Phosphorus (2.5-4.5) mg/dL Iron (50-170) ug/dL TIBC (228-460) ug/dL Transferrin (204.0-354.0) mg/dL Ferritin (10.0-291.0) ng/mL Troponin I (0.000-0.034) ng/mL 03/08/22 03/08/22 Range/Units 11:30 11:56 RBC (3.80-5.40) m/uL Hgb (11.4-16.0) gm/dL Hct (34.0-46.0) % MCHC (31.0-37.0) g/dL RDW (11.5-15.5) % PT (9.0-12.0) sec INR (<1.2) APTT (22.0-30.0) sec Sodium (137-145) mmol/L BUN (7-17) mg/dL Creatinine (0.52-1.04) mg/dL Glucose (74-99) mg/dL POC Glucose (mg/dL) 114 H (70-110) mg/dL Calcium (8.4-10.2) mg/dL Phosphorus (2.5-4.5) mg/dL Iron (50-170) ug/dL TIBC (228-460) ug/dL Transferrin (204.0-354.0) mg/dL Ferritin (10.0-291.0) ng/mL Troponin I 1.020 H* (0.000-0.034) ng/mL
[2022-03-08] MEDS ORDERED: fentaNYL (PF) 50 MCG/ML 2 ML AMP ONE (13:27)
[2022-03-08] MEDS ORDERED: MIDAZOLAM 2 MG/2 ML VIAL IV ONE (13:28)
[2022-03-08] MEDS ORDERED: fentaNYL (PF) 50 MCG/ML 2 ML AMP IV ONE (13:28)
[2022-03-08] MEDS ORDERED: DOPamine DRIP 800 MG in DEXTROSE/WATER 1 250ML.BAG IV SCH (13:30)
[2022-03-08] MEDS ORDERED: DEXTROSE 5% IN WATER 1,000 ML with SODIUM BICARB (1 MEQ/ML) 150 ML IV SCH (13:30)
[2022-03-08] MEDS ORDERED: FLUMAZENIL 0.1 MG/ML 5 ML VIAL IVP ONE ×2 (13:31→13:34)
[2022-03-08] MEDS ORDERED: NALOXONE 0.4 MG/ML 1 ML VIAL ONE ×2 (13:32→13:36)
[2022-03-08] MEDS ORDERED: NALOXONE 0.4 MG/ML 1 ML VIAL IV ONE ×2 (13:34→13:37)
[2022-03-08] MEDS ORDERED: ATROPINE SULFATE 0.1 MG/ML 10ML SYRINGE IV ONE (13:36)
[2022-03-08] MEDS ORDERED: TIROFIBAN 12.5MG-250ML NS 250 ML IV ONE (13:46)
[2022-03-08] MEDS ORDERED: TIROFIBAN BOLUS 12.5MG/250 ML BAG IV ONE (13:47)
[2022-03-08] MEDS ORDERED: NOREPINEPHRINE 4 MG in SODIUM CHLORIDE 0.9% 250 ML IV ONE (13:52)
[2022-03-08] MEDS ORDERED: IOPAMIDOL-370 125ML BTL INJ ONE (14:06)
[2022-03-08] MEDS ORDERED: ATROPINE SULFATE 0.1 MG/ML 10ML SYRINGE IV PRN (14:10)
[2022-03-08] MEDS ORDERED: ZOLPIDEM 5 MG TAB PO PRN (14:10)
[2022-03-08] MEDS ORDERED: MAG HYDROX/AL HYDROX/SIMETH 30 ML CUP PO PRN (14:10)
[2022-03-08] MEDS ORDERED: RX INFO: IV CONTRAST WAS GIVEN 1 EACH MISC MISCELLANE PRN (14:10)
[2022-03-08] MEDS ORDERED: TIROFIBAN 12.5MG-250ML NS 250 ML IV SCH (14:15)
[2022-03-08 14:18] LABS: ABG Base Excess -2.9 mmol/L; ABG HCO3 24 mmol/L (21-25); ABG Oxygen Saturation 99.8 % (94-97); ABG PCO2 49 mmHg (35-45); ABG PH 7.29 (7.35-7.45); ABG PO2 351 mmHg (83-108); ABG TCO2 25 mmol/L (19-24); Allen Test Performed? Yes
[2022-03-08] MEDS ORDERED: propofoL 100 ML IV ONE (14:49)
--- NOTE | 2022-03-08 15:04 | P.PN ---
Progress Note - Text Progress Note Date: 03/08/22 (6002) Anesthesia CTSP regarding code blue. Upon arrival, helped respiratory bag the patient wi th two person ventilation. Once airway equipment was available, intubated in one attempt. 8.0ett with mac 3.0. 23cm secured and left in respiratory therapist care.
[2022-03-08] MEDS ORDERED: HYDROmorphone 1 MG/ML 1 ML SYRINGE IVP PRN (15:07)
[2022-03-08 15:10] LABS: Anisocytosis Moderate; Basophils % (A) 0 %; Eosinophils # (A) 0.2 k/uL (0-0.7); Eosinophils % (A) 2 %; HCT 29.9 % (34.0-46.0); HGB 8.7 gm/dL (11.4-16.0); Hypochromasia Marked; Lymphocytes # (A) 0.9 k/uL (1.0-4.8); Lymphocytes % (A) 6 %; MCH 25.8 pg (25.0-35.0); MCHC 29.1 g/dL (31.0-37.0); MCV 88.6 fL (80.0-100.0); Mean Platelet Volume 8.9; Monocytes # (A) 0.1 k/uL (0-1.0); Monocytes % (A) 1 %; Neutrophils # (A) 14.9 k/uL (1.3-7.7); Neutrophils % (A) 92 %; Platelet Count 295 k/uL (150-450); RBC 3.37 m/uL (3.80-5.40); WBC 16.2 k/uL (3.8-10.6)
[2022-03-08] MEDS: NOREPINEPHRINE 4 MG in SODIUM CHLORIDE 0.9% 250 ML IV SCH (15:15)
[2022-03-08 15:20] LABS: Albumin 2.8 g/dL (3.5-5.0); Bilirubin, Delta 0.6 mg/dL (0.0-0.2); Bilirubin,Unconjugated 0.3 mg/dL (0.0-1.1); Calcium 7.8 mg/dL (8.4-10.2); Magnesium 1.8 mg/dL (1.6-2.3); Potassium 3.4 mmol/L (3.5-5.1); Total Bilirubin 0.9 mg/dL (0.2-1.3); Total Protein 5.5 g/dL (6.3-8.2)
[2022-03-08] MEDS: IPRATROPIUM-ALBUTEROL 3 ML NEB INHALATION SCH ×3 (15:30→23:28)
--- NOTE | 2022-03-08 15:33 | XR ---
EXAMINATION TYPE: XR chest 1V portable DATE OF EXAM: 03/08/2022 COMPARISON: Chest x-ray 11/21/2021 HISTORY: Cardiac arrest, intubated TECHNIQUE: Single frontal view of the chest is obtained. FINDINGS: NG tube shows the distal tip overlying the thoracic inlet. Endotracheal tube is overlying the tracheal air column approximately 4 mm from the jeffy. There is a left ventricular assist device in place. Bilateral airspace disease is present within the lungs. No evident pneumothorax or pleural effusion. Heart is enlarged. Stomach shows air-filled appearance. Surgical clips present in the righ t upper quadrant. No evident pneumothorax or pleural effusion. IMPRESSION: Correlate for congestive heart failure, pulmonary edema. Endotracheal tube is within 4 m m of the jeffy, NG tube within the thoracic inlet level. Cardiomegaly. Results relayed to nurse Grah am at the time of interpretation by phone.
[2022-03-08] MEDS ORDERED: HEPARIN SODIUM 1,000 UN/ML (10ML VL) IV PRN (15:50)
--- NOTE | 2022-03-08 16:16 | P.CNPUL ---
History of Present Illness Consult date: 03/08/22 Requesting physician: Renaldo Schaeffer Reason for consult: other Chief complaint: Cardiac arrest History of present illness: 47-year-old female patient with past medical history of ESRD on hemodialysis at home, type 2 diabetes mellitus, hypertension, hyperlipidemia, coronary artery disease with prior history of stenting 4 who came into the emergency department on 03/07/2022 for evaluation of sudden onset substernal pressure-like chest pain, rating it 10 out of 10 associated with shortness of breath and nausea. Patient took 2 sublingual nitroglycerin with relief a few hours, only to return a few hours later. Patient has a history of prior MIs, in her substernal chest discomfort was similar to that when she had her prior MIs. Chest x-ray showed pulmonary interstitial edema. EKG in the emergency department showed sinus rhythm, with a rate of 96, without acute ischemic abnormalities. Prior echocardiogram from January 2022 showed EF of 40-45%. Laboratory evaluation showed troponin of 0.57, 0.66, 0.76. The BUN of 42, creatinine of 5.6. Normal white count of 4.7, hemoglobin of 8.7, platelet count of 249. ProBNP level was significantly elevated at 106,000 on admission. This morning patient was undergoing her hemodialysis and patient started experiencing low blood pressure and chest tightness during dialysis. Rapid response team was called, patient was hypotensive and bradycardic. Hemodialysis was discontinued. Initially patient received of fluid bolus however she subsequently went into pulseless electrical activity requiring CPR, ACLS, multiple rounds of epinephrine and s odium bicarbonate. Time to first return of spontaneous circulation was over 40 minutes with multiple subsequent episodes of cardiac arrest, V. fib, defibrillation,lidocaine and amiodarone. Patient was emergently chest to the [facility] where she underwent PCI and stenting of the LAD which was 80% occluded and left circumflex which was 100% occluded, patient received a total of 3 stents she was intubated and the [facility], she was transferred to the intensive care unit, for further management Review of Systems All systems: negative Constitutional: Denies chills, Denies fever Eyes: denies blurred vision, denies pain Ears, nose, mouth and throat: Denies headache, Denies sore throat Cardiovascular: Reports chest pain, Denies shortness of breath Respiratory: Reports dyspnea, Denies cough Gastrointestinal: Denies abdominal pain, Denies diarrhea, Denies nausea, Denies vomiting Genitourinary: Denies dysuria, Denies hematuria Musculoskeletal: Denies myalgias Integumentary: Denies pruritus, Denies rash Neurological: Denies numbness, Denies weakness Psychiatric: Denies anxiety, Denies depression Endocrine: Denies fatigue, Denies weight change Past Medical History Past Medical History: Coronary Artery Disease (CAD), Heart Failure, Diabetes Mellitus, Dialysis, Eye Disorder, GERD/Reflux, Hyperlipidemia, Hypertension, Myocardial Infarction (IN), Renal Disease Additional Past Medical History / Comment(s): IDDM type II, neuropathy bilateral feet, ESRD with home hemodialysis, anemia, bilateral retinal bleeds, sepsis with respiratory failure and vented once, RLS, hiatal hernia, diverticular disease, possible colitis, migraines, shingelles in 2016, Jehovah Witness/NO BLOOD PRODUCTS. Last Myocardial Infarction Date:: 08/2020 History of Any Multi-Drug Resistant Organisms: None Reported Past Surgical History: Bowel Resection, Breast Surgery, Cholecystectomy, Heart Catheterization With Stent, Hernia Repair Additional Past Surgical History / Comment(s): R breast biopsy X 2 both benign, breast reduction, [place] cataracts removed HAS HAD 2 PERITONEAL DIALYSIS CATHETERS, AND 5 HEMODIALYSIS CATHETHERS, umbilical hernia repair with ischemic bowel within-small resection, colonoscopy/EGD. Removed L Ovary. Graft R arm. Past Anesthesia/Blood Transfusion Reactions: Motion Sickness, Postoperative Nausea & Vomiting (PONV) Additional Past Anesthesia/Blood Transfusion Reaction / Comment(s): NO BLOOD PRODUCTS-pt is a Adventism Date of Last Stent Placement:: 09/20/21 Smoking Status: Never smoker - Past Family History Mother Family Medical History: Osteoarthritis (OA) Additional Family Medical History / Comment(s): . Father Family Medical History: Cancer Additional Family Medical History / Comment(s): Father of LIVER cancer at age 61 yrs. Medications and Allergies Home Medications Medication Instructions Recorded Confirmed Type Magnebind 300 1 tab PO TID-W/MEALS 03/17/19 03/07/22 History rOPINIRole HCL [Requip] 1 mg PO BID 03/17/19 03/07/22 History Gabapentin [Neurontin] 200 mg PO DAILY@1200 07/16/21 03/07/22 History Calcium Acetate [PhosLo] 1,334 mg PO TID-W/MEALS 08/16/21 03/07/22 History Cinacalcet HCl [Sensipar] 90 mg PO MOTUWETHFR 08/16/21 03/07/22 History Ergocalciferol (Vitamin D2) 1,250 mcg PO MO 08/16/21 03/07/22 History [Drisdol (50,000 Iu)] Lidocaine-Prilocaine Cream [Emla 1 applic TOPICAL DAILY PRN 08/16/21 03/07/22 History Cream 2.5%/2.5%] calcitrioL [Calcitriol] 1 mcg PO DAILY 08/16/21 03/07/22 History rOPINIRole HCL [Requip] 0.25 mg PO BID 08/16/21 03/07/22 History Atorvastatin [Lipitor] 80 mg PO DAILY 30 Days #30 tab 08/20/21 03/07/22 Rx Clopidogrel [Plavix] 75 mg PO DAILY 30 Days #30 tab 08/20/21 03/07/22 Rx Nitroglycerin Sl Tabs [Nitrostat] 0.4 mg SUBLINGUAL Q5M PRN #25 tab 08/20/21 03/07/22 Rx Zolpidem [Ambien] 5 mg PO HS PRN 09/20/21 03/07/22 History Metoprolol Tartrate [Lopressor] 25 mg PO BID #60 tab 09/22/21 03/07/22 Rx Aspirin 81 mg PO DAILY 01/30/22 03/07/22 History Cyclobenzaprine [Flexeril] 10 mg PO TID PRN 01/30/22 03/07/22 History Gabapentin [Neurontin] 400 mg PO HS 01/30/22 03/07/22 History Albuterol Inhaler [Ventolin Hfa 1 puff INHALATION RT-QID PRN 30 02/01/22 03/07/22 Rx Inhaler] Days #8 gm Isosorbide Mononitrate ER [Imdur] 30 mg PO DAILY 30 Days #30 tab 02/01/22 03/07/22 Rx Midodrine [ProAmatine] 5 mg PO TID 30 Days #90 tab 02/01/22 03/07/22 Rx Pantoprazole [Protonix] 40 mg PO BID 30 Days #60 tab 02/01/22 03/07/22 Rx Amitriptyline HCl 10 mg PO HS 03/07/22 03/07/22 History Darbepoetin Tigre [Aranesp] 40 mcg SQ Q7D each 03/08/22 Rx Allergies Allergy/AdvReac Type Severity Reaction Status Date / Time No Known Allergies Allergy Verified 03/07/22 00:02 Physical Exam Vitals: Vital Signs Temp Pulse Pulse Resp BP Pulse Ox 03/08/22 14:12 75/31 03/08/22 08:51 98.1 F 84 17 87/55 99 03/08/22 04:00 97.9 F 79 16 91/59 03/08/22 02:00 87 16 03/08/22 00:00 98.1 F 87 16 97/63 97 03/07/22 20:23 84 03/07/22 20:09 80 03/07/22 20:00 98.0 F 79 17 91/60 100 03/07/22 16:00 97.4 F L 84 16 93/56 98 Intake and Output 03/07/22 03/08/22 03/08/22 22:59 06:59 14:59 Intake Total 414.345 79.357 2017.045 Balance 414.345 79.357 2018.045 Intake: IV 975 Intake, IV Titration 54.345 79.357 43.045 Amount Heparin Sod,Pork in 0.45% 54.345 79.357 43.045 NaCl 25,000 unit In 0.45 % NaCl 1 250ml.bag @ 12 UNITS/KG/HR 7.076 mls/hr IV .Q24H [facility] Rx#: [id number] Oral 360 Hemodialysis 1000 GENERAL EXAM: Sedated, intubated, 47-year-old female on assist control mode of ventilation, with FiO2 her percent and PEEP of 5 comfortable in no apparent distress. HEAD: Normocephalic/atraumatic. EYES: Normal reaction of pupils, equal size. Conjunctiva pink, sclera white. NOSE: Clear with pink turbinates. THROAT: No erythema or exudates. NECK: No masses, no JVD, no thyroid enlargement, no adenopathy. CHEST: No chest wall deformity. Symmetrical expansion. LUNGS: Equal air entry with no crackles, wheeze, rhonchi or dullness. CVS: Regular rate and rhythm, normal S1 and S2, no gallops, no murmurs, no rubs ABDOMEN: Soft, nontender. No hepatosplenomegaly, normal bowel sounds, no guarding or rigidity. EXTREMITIES: No clubbing, no edema, no cyanosis, 2+ pulses and upper and lower extremities. MUSCULOSKELETAL: Muscle strength and tone normal. SPINE: No scoliosis or deformity SKIN: No rashes CENTRAL NERVOUS SYSTEM: Sedated and intubated No focal deficits, tone is normal in all 4 extremities. Results - Laboratory Findings CBC and BMP: 03/08/22 14:59 03/08/22 14:59 PT/INR, D-dimer PT 13.8 sec (9.0-12.0) H 03/07/22 13:11 INR 1.3 (<1.2) H 03/07/22 13:11 Abnormal lab findings: Abnormal Labs 03/07/22 03/07/22 03/07/22 01:26 01:26 01:26 RBC 3.45 L Hgb 8.8 L Hct 29.5 L MCHC 29.7 L RDW 19.7 H PT 14.1 H INR 1.4 H APTT Sodium 132 L Potassium 3.1 L Chloride 94 L BUN 39 H Creatinine 5.41 H Glucose 145 H POC Glucose (mg/dL) Calcium Phosphorus Iron TIBC Transferrin Ferritin Troponin I Total Protein 6.1 L Albumin 3.4 L 03/07/22 03/07/22 03/07/22 01:26 05:16 07:20 RBC Hgb Hct MCHC RDW PT INR APTT Sodium Potassium Chloride BUN Creatinine Glucose POC Glucose (mg/dL) 140 H Calcium Phosphorus Iron TIBC Transferrin Ferritin Troponin I 0.572 H* 0.666 H* Total Protein Albumin 03/07/22 03/07/22 03/07/22 07:22 07:22 07:22 RBC 3.44 L Hgb 8.7 L Hct 30.1 L MCHC 28.8 L RDW 19.6 H PT INR APTT Sodium 135 L Potassium 3.2 L Chloride 97 L BUN 42 H Creatinine 5.65 H Glucose 136 H POC Glucose (mg/dL) Calcium Phosphorus Iron TIBC Transferrin Ferritin Troponin I 0.769 H* Total Protein Albumin 03/07/22 03/07/22 03/07/22 13:11 13:11 17:06 RBC Hgb Hct MCHC RDW PT 13.8 H INR 1.3 H APTT 35.7 H Sodium Potassium Chloride BUN Creatinine Glucose POC Glucose (mg/dL) 125 H Calcium Phosphorus 8.0 H Iron 44 L TIBC 174 L Transferrin 124.0 L Ferritin 1293.0 H Troponin I Total Protein Albumin 03/07/22 03/07/22 03/08/22 19:56 20:09 03:42 RBC 3.60 L Hgb 9.2 L Hct 30.9 L MCHC 29.7 L RDW 19.6 H PT INR APTT 33.9 H Sodium Potassium Chloride BUN Creatinine Glucose POC Glucose (mg/dL) 116 H Calcium Phosphorus Iron TIBC Transferrin Ferritin Troponin I Total Protein Albumin 03/08/22 03/08/22 03/08/22 03:42 03:45 05:56 RBC Hgb Hct MCHC RDW PT INR APTT 75.4 H Sodium 136 L Potassium Chloride BUN 49 H Creatinine 7.18 H* Glucose 111 H POC Glucose (mg/dL) 125 H Calcium 8.3 L Phosphorus Iron TIBC Transferrin Ferritin Troponin I Total Protein Albumin 03/08/22 03/08/22 11:30 11:56 RBC Hgb Hct MCHC RDW PT INR APTT Sodium Potassium Chloride BUN Creatinine Glucose POC Glucose (mg/dL) 114 H Calcium Phosphorus Iron TIBC Transferrin Ferritin Troponin I 1.020 H* Total Protein Albumin - Diagnostic Findings Chest x-ray: report reviewed, image reviewed Assessment and Plan Plan: Assessment: #1. Acute cardiac arrest, related to acute non-ST elevated myocardial infarction, patient suffered multiple episodes of cardiac arrest, requiring CPR and ACLS protocol with return of spontaneous circulation #2. Acute coronary syndrome, status post emergent heart catheterization and PCI and stenting of the LAD and left circumflex with Impella support #3. Acute cardiogenic shock related to acute non-ST elevated myocardial infarction, status post Impella device support #4. Acute hypoxic respiratory failure related to the above, requiring intubation and mechanical ventilator support #5. End-stage renal disease on hemodialysis #6. Hypertension #7. Dyslipidemia #8. Diabetes mellitus type 2 #9. Previous history of coronary artery disease with PCI and stenting and previous MIs #10. Ischemic cardiomyopathy Plan: Continue ventilator support Blood gas has been reviewed, AC rate has been increased to 22, FiO2 down to 50% Chest x-ray reviewed, ET tube will be moved up 1 cm, and NG tube will be replaced Continue epinephrine infusion as ordered by cardiology Continue bicarbonate infusion Hemodialysis orders per nephrology Cardiology recommendations Impella device in place Continue close hemodynamic monitoring in the intensive care unit Prognosis is guarded I have personally seen and examined the patient, performed the documentation and the assessment and plan as written. Number of minutes spent on the visit: [15] Time with Patient: Greater than 30
--- NOTE | 2022-03-08 16:29 | P.PN ---
Subjective Progress Note Date: 03/08/22 Principal diagnosis: Chest pain Patient was initially seen prior to dialysis. She had reported complete resolution of her chest pain. Plan was initially to discharge the patient after dialysis if she was chest pain free with ambulation. Objective - Vital Signs Vital signs: Vital Signs Temp 98.1 F 03/08/22 08:51 Pulse 84 03/08/22 08:51 Resp 17 03/08/22 08:51 BP 87/55 03/08/22 08:51 Pulse Ox 99 03/08/22 08:51 FiO2 Intake & Output 03/07/22 03/08/22 03/08/22 18:59 06:59 18:59 Intake Total 292.362 253.702 43.045 Balance 292.362 253.702 43.045 Weight 58.967 kg Intake: Intake, IV Titration 52.362 133.702 43.045 Amount Heparin Sod,Pork in 0.45% 52.362 133.702 43.045 NaCl 25,000 unit In 0.45 % NaCl 1 250ml.bag @ 12 UNITS/KG/HR 7.076 mls/hr IV .Q24H [facility] Rx#: [id number] Oral 240 120 Other: # Voids 0 - Exam General: [no distress], [appears at stated age] Derm: [warm], [dry] Head: [atraumatic], [normocephalic], [symmetric] Eyes: [EOMI], [no lid lag], [anicteric sclera] Mouth: [no lip lesion], [mucus membranes moist] Cardiovascular: [S1S2 reg], [no murmur] Lungs: [Decreased BS bilateral], [no rhonchi, no rales] , [no accessory muscle use] Ext: [no gross muscle atrophy], [no edema], [no contractures], [RUE AV graft] Neuro: [no focal neuro deficits] Psych: [Alert], [oriented], [appropriate affect] - Labs CBC & Chem 7: 03/08/22 14:59 03/08/22 14:59 Labs: Abnormal Lab Results - Last 24 Hours (Table) 03/07/22 03/07/22 03/07/22 Range/Units 13:11 13:11 17:06 RBC (3.80-5.40) m/uL Hgb (11.4-16.0) gm/dL Hct (34.0-46.0) % MCHC (31.0-37.0) g/dL RDW (11.5-15.5) % PT 13.8 H (9.0-12.0) sec INR 1.3 H (<1.2) APTT 35.7 H (22.0-30.0) sec Sodium (137-145) mmol/L BUN (7-17) mg/dL Creatinine (0.52-1.04) mg/dL Glucose (74-99) mg/dL POC Glucose (mg/dL) 125 H (70-110) mg/dL Calcium (8.4-10.2) mg/dL Phosphorus 8.0 H (2.5-4.5) mg/dL Iron 44 L (50-170) ug/dL TIBC 174 L (228-460) ug/dL Transferrin 124.0 L (204.0-354.0) mg/dL Ferritin 1293.0 H (10.0-291.0) ng/mL 03/07/22 03/07/22 03/08/22 Range/Units 19:56 20:09 03:42 RBC 3.60 L (3.80-5.40) m/uL Hgb 9.2 L (11.4-16.0) gm/dL Hct 30.9 L (34.0-46.0) % MCHC 29.7 L (31.0-37.0) g/dL RDW 19.6 H (11.5-15.5) % PT (9.0-12.0) sec INR (<1.2) APTT 33.9 H (22.0-30.0) sec Sodium (137-145) mmol/L BUN (7-17) mg/dL Creatinine (0.52-1.04) mg/dL Glucose (74-99) mg/dL POC Glucose (mg/dL) 116 H (70-110) mg/dL Calcium (8.4-10.2) mg/dL Phosphorus (2.5-4.5) mg/dL Iron (50-170) ug/dL TIBC (228-460) ug/dL Transferrin (204.0-354.0) mg/dL Ferritin (10.0-291.0) ng/mL 03/08/22 03/08/22 03/08/22 Range/Units 03:42 03:45 05:56 RBC (3.80-5.40) m/uL Hgb (11.4-16.0) gm/dL Hct (34.0-46.0) % MCHC (31.0-37.0) g/dL RDW (11.5-15.5) % PT (9.0-12.0) sec INR (<1.2) APTT 75.4 H (22.0-30.0) sec Sodium 136 L (137-145) mmol/L BUN 49 H (7-17) mg/dL Creatinine 7.18 H* (0.52-1.04) mg/dL Glucose 111 H (74-99) mg/dL POC Glucose (mg/dL) 125 H (70-110) mg/dL Calcium 8.3 L (8.4-10.2) mg/dL Phosphorus (2.5-4.5) mg/dL Iron (50-170) ug/dL TIBC (228-460) ug/dL Transferrin (204.0-354.0) mg/dL Ferritin (10.0-291.0) ng/mL 03/08/22 Range/Units 11:56 RBC (3.80-5.40) m/uL Hgb (11.4-16.0) gm/dL Hct (34.0-46.0) % MCHC (31.0-37.0) g/dL RDW (11.5-15.5) % PT (9.0-12.0) sec INR (<1.2) APTT (22.0-30.0) sec Sodium (137-145) mmol/L BUN (7-17) mg/dL Creatinine (0.52-1.04) mg/dL Glucose (74-99) mg/dL POC Glucose (mg/dL) 114 H (70-110) mg/dL Calcium (8.4-10.2) mg/dL Phosphorus (2.5-4.5) mg/dL Iron (50-170) ug/dL TIBC (228-460) ug/dL Transferrin (204.0-354.0) mg/dL Ferritin (10.0-291.0) ng/mL Assessment and Plan Assessment: Non-ST elevation IN -Heparin drip discontinued by Cardiology -Continue with aspirin, statin -Cardiology consulted - Discussed with Halle PEREZ, recommends discharge home after dialysis if patient able to ambulate and chest pain free -Echocardiogram shows EF 40-45% with basal inferior wall hypokinesis, moderate pulmonary hypertension -Cardiac monitoring Normocytic anemia, likely due to ESRD -Iron studies showing anemia of chronic disease -Stable ESRD -Nephrology on board -Plans for dialysis today Resolved: Hypokalemia Chronic conditions: Type II DM, hypertension, hyperlipidemia -Continue with home meds DVT prophylaxis -Heparin infusion
--- NOTE | 2022-03-08 16:30 | P.PN ---
Progress Note - Text Progress Note Date: 03/08/22 During dialysis I got a page from nursing reporting substernal chest pain. Discharge planning was cancelled. Plans for dialysis was cancelled and STAT EKG and Troponin was ordered. A-team was called during dialysis around 11:50AM. Patient was noted to have worsening chest pain and diaphoresis. She was noted to be hypotensive with BP in the 60s/40s and heart rate dropping into the 30s. JUNIOR RAMON was called at 11:54AM. Apparently patient was noted to be unresponsive. It is unclear whether patient lost her pulse. Patient regained consciousness during the first round of CPR. No medications were administered. The case was discussed with Dr. Mendez at that time who was agreeable to take the patient down for emergent cardiac cath. Please refer to the CODE BLUE sheet for further details. JUNIOR RAMON was called once again at 12:27PM. Patient was found to be in PEA on the monitor. High quality chest compression were started and she received 2 doses of Epinephrine. ROSC was achieved and patient was taken down to the chemistry lab instructor for emergent cardiac cath. Please refer to the CODE BLUE sheet for further details.
[2022-03-08] MEDS ORDERED: POTASSIUM CHLORIDE 20 MEQ in WATER FOR INJECTION 1 100ML.BAG IVPB STA (16:34)
[2022-03-08 16:49] LABS: INR 1.6 (<1.2); Prothrombin Time 16.5 sec (9.0-12.0)
[2022-03-08 16:52] LABS: Partial Thromboplastin Time 104.9 sec (22.0-30.0)
[2022-03-08] MEDS: POTASSIUM CHLORIDE 20 MEQ in WATER FOR INJECTION 1 100ML.BAG IVPB SCH ×2 (16:53→18:52)
[2022-03-08 16:59] LABS: ABG Base Excess 2.3 mmol/L; ABG HCO3 26 mmol/L (21-25); ABG Oxygen Saturation 91.2 % (94-97); ABG PCO2 39 mmHg (35-45); ABG PH 7.44 (7.35-7.45); ABG PO2 65 mmHg (83-108); ABG TCO2 28 mmol/L (19-24); Allen Test Performed? Yes
--- NOTE | 2022-03-08 17:09 | XR ---
EXAMINATION TYPE: XR chest 1V portable DATE OF EXAM: 03/08/2022 COMPARISON: Today HISTORY: NG tube placement TECHNIQUE: FINDINGS: There is nasogastric tube and the tip is projected over the gastric fundus. The endotrachea l tube is 1.8 cm from the jeffy. There is left ventricle assist catheter noted. There is pulmonary a irspace edema. Heart is enlarged. IMPRESSION: There is pulmonary edema consistent with heart failure and no significant change compared to exam 2 hours ago. NG tube in the gastric fundus.
--- NOTE | 2022-03-08 17:22 | P.PN ---
Progress Note - Text Progress Note Date: 03/08/22 47-year-old woman with medical history of end-stage renal disease as well as coronary artery disease status post stents in the past presented for chest pain. Patient's hospital course was complicated by two code blues earlier in the day, and subsequently was transferred to the [facility] for further intervention. I was called to bedside for another CODE BLUE during [facility] intervention. By the time my arrival, patient had return of spontaneous circulation, received 1 g of calcium chloride as well as an additional amp of bicarb, however, later developed V. tach, received one attempt at defibrillation as well as load of amiodarone and lidocaine. Patient then lost her pulse again requiring additional epinephrine as well as bicarb. We were able to regain her pulse again, and she was started on an epinephrine drip as well as low-dose bicarb drip. Patient's intervention required multiple stents, balloon angioplasty, and Impella placement (see intervention note for more details). After Impala and initial stent placement patient was following commands but was gagging on the ventilator and appeared to be in distress. Therefore, she received 1 mg of Versed and 50 g of fentanyl. However, during the latter half of the intervention it was felt that he would be better to reverse her sedation while in the [facility] given her significant hemodynamic fluctuations. Therefore, she was given a dose of flumazenil as well as 2 doses of Narcan. Patient's intervention course was also complicated by bradycardia as low as mid 30s, this improved with multiple rounds of atropine as well as dopamine drip. After full revascularization of the left coronary system, patient's heart function significantly improved, her heart rate turned into atrial fibrillation and peaked in the 150s to 160s. At this point dopamine was stopped, epinephrine was down titrated. By the time she was ready to be transferred back to the intensive care unit patient was again interactive and following commands, moving all extremities. I also reevaluate her in the ICU after her intervention, she appeared agitated, but moving all extremities, following commands. She is placed on propofol at 40, same vent settings, 1 mg every hour when necessary of Dilaudid. Initially, she required 4 point restraints, but this improved. She did appear to have dopplerable pulses in all extremities. Her pressures were good, epinephrine discontinued, remained on Levophed alone. She was hypothermic. Postinterventio n chest x-ray demonstrates pulmonary edema, diffusely consistent with heart failure. Postintervention ABG shows a pH of 7.29, pCO2 of 49, pO2 of 315. Postintervention lactate was 10.1, postintervention troponin was 2.1. Case was discussed with interventional list as well as ICU physician. Gen: Intubated, sedated HEENT: normocephalic, atraumatic, moist mucous membranes Resp: Ventilator - FiO2 50%, before meals 450, respiratory rate 22 CVS: good distal perfusion x 4, GI: soft, NTTP, ND : no SPT, no CVAT, peter catheter is present MSK: no pitting edema, no clubbing Neuro: non-focal, moving all extremities Labs and imaging reviewed to date Assessment/plan: Cardiogenic shock secondary to non-ST elevation NE Cardiac arrest secondary to ischemia Coronary artery disease status post revascularization of the LAD and left circumflex, chronic total occlusion of the RCA End-stage Renal Disease -Transfer to the ICU -Cardiology, pulmonology to follow -Levo fed has required -Propofol, Dilaudid when necessary for sedation -Ventilator management -Follow labs -Will require dialysis for volume management -Sedation holiday and neurological exam tomorrow -Aspirin, brillinta, heparin drip I spent from approximately 12:46-14:45 caring for this patient, about 12 minutes included CPR in this duration.
[2022-03-08 19:01] LABS: Glucose,Whole Blood 219 mg/dL (70-110)
[2022-03-08] MEDS ORDERED: PRASUGREL 10 MG TAB PO STA ×2 (19:16→21:40)
--- NOTE | 2022-03-08 19:27 | P.PCN ---
Date of Procedure: 03/08/22 Operative Findings: Heart catheterization and percutaneous coronary intervention Performing physician Renaldo Schaeffer MD, RPVI Procedure performed 1. Successful stenting of the left anterior descending arter 3.5 x 18 mm Xience SIDRA with an excellent angiographic result 2. Successful stenting of the left circumflex coronary artery usin 2.5 x 18 mm Xience drug-eluting stent with an excellent angiographic results 3. Successful placement of Impella CP in the left ventricle 4. Selective left and right coronary angiogram 5. Attempted aspiration thrombectomy from the left anterior descending artery Indication This is a pleasant 47-year-old female patient with end-stage renal disease on dialysis as well as coronary artery disease with prior stenting of the LCx and LAD and also multiple comorbid conditions including hypertension and dyslipidemia presented to the hospital with a chest discomfort which was atypical for angina. The cardiac enzymes were slightly elevated but she is known to have chronic troponin elevation. The patient was managed conservatively overnight with anticoagulation as well as antiplatelet and she was seen earlier today where her chest discomfort has resolved completely. She was going to have dialysis and during dialysis she developed chest discomfort and subsequently she had cardiopulmonary arrest. In the light of that she was brought to the cardiac catheterization laboratory. Approach Right and left common femoral arteries Complication None Level of sedation The procedure was performed when the patient was intubated in the microbiological laboratory technician. She was given sedation and anesthesia was on standby. Procedure description The patient was brought emergently to the cardiac catheterization laboratory. Subsequently in the microbiological laboratory technician prior to the procedure she was intubated and she was sedated. Please note that the patient had another cardiac arrest in the cardiac catheterization laboratory on the table before we started the procedure. She also had 2 cardiac arrest on the floor. Subsequently I accessed the left common femoral artery using micropuncture technique, the micropuncture wire passed easily then I placed a 6 Argentine sheath. Selective left coronary angiogram was performed using JR4 guiding catheter. That revealed haziness involving the distal left main as well as occluded LCx as well as some haziness involving the left anterior descending artery. She was given heparin IV and she was given a weight-based heparin. Subsequently I decided to intervene on the left circumflex coronary artery. I did wire the left circumflex using running through wire. The wire was advanced to the distal LCx. I also did wire the LAD using another run through wire. Subsequently I did balloon angioplasty of the LCx and subsequently stenting of the LCx. At that point the patient had cardiac arrest again and this time was with a V. fib. She received shock and she was brought to sinus mechanism. Angiogram was performed and showed occluded left main and occluded LCx as well as LAD. At that point I did balloon angioplasty of the LAD and then stenting of the LAD very quickly. I decided because she continues to be hypotensive to place Impella in the LV. So I did upgrade my 6 Argentine 11 cm sheath into a 14 Argentine 11 cm sheath using a 035 stiff wire which was advanced all the way to the descending aorta. I did predilate using 10 Argentine dilator. Please note that during the procedure the patient had multiple cardiac arrest and CPR was initiated. Subsequently I crossed the aortic valve using a 035 wire with a pigtail catheter then the wire was pulled out and I advanced an 018 wire and I pulled the pigtail catheter out. Subsequently the Impella was advanced under fluoroscopy guidance into the LV and the wire was pulled out and the Impella was turned on. Another cardiac arrest happened and CPR was initiated. After the patient was somewhat stable on multiple vasopr essors I did access the right common femoral artery using micropuncture technique, the micropuncture wire passed easily then I place initially 5 Argentine for pressure monitoring and subsequently 6 Argentine 11 cm sheath. I decided to go with the guiding catheter again to check the status of the left main as well as LCx and LAD. The angiogram revealed occluded distal left main and no flow in the LCx or LAD. At that point I rewired both the LCx and LAD using running through wire and whisper wire. Subsequently kissing balloons of both the LCx and LAD. I did also angioplasty of the LCx in the midportion. An angiogram again was performed and showed thrombus involving the proximal left anterior descending artery right after the takeoff of the LCx. I decided to cover that with a stent. I deployed a 3.5 x 18 mm stent which was Xience stent in the left anterior descending artery from the ostium as a matter of fact across the ostial LCx. I left the wire in the LCx. The following angiogram showed grade flow in the LAD. At that point the patient's blood pressure started going up and we can see better the pressure waveform. After that there was no flow in the LCx. I decided to rewired the LCx again which I did using a running through wire. Then I did balloon angioplasty of the LCx through the stent struts. The final angiogram showed DILAN III flow in both the LAD and LCx as well as left main. I decided to stop at that point. Subsequently I did select the right coronary artery using JR4 catheter which showed that the RCA is occluded but the RCA is known to be occluded from before. There was collateral in the RCA, bridging collateral was not seen at this point. That concerned me about possible embolization to the coronary trees. Subsequently I pulled the guiding catheter out and we secured the 14 Argentine on the left side and 6 Argentine on the right side sheaths. Please note that the patient had multiple cardiac arrest throughout the procedure. CPR was initiated. Conclusion 1. Cardiopulmonary arrest multiple times and CPR was performed multiple times 2. Large thrombus burden involving the distal left main and LCx and LAD 3. Cardiogenic shock required vasopressors as well as mechanical support 4. Successful stenting of the LCx and LAD with yazdanism of DILAN-3 flow 5. Known chronic total occlusion of the RCA Postprocedure management 1. Consider potent antiplatelet therapy. 2. DC Plavix and start the patient on Effient 3. Continue heparin IV in the presence of Impela 4. Down titration the vasopressors including norepinephrine 5. Obtain an echocardiogram in the morning 6. ICU monitoring 7. Follow-up with the patient
[2022-03-08] MEDS: HEPARIN SODIUM,PORCINE 12,500 UNIT in DEXTROSE 5% IN WATER 500 ML IV SCH ×2 (21:14)
[2022-03-08] MEDS: GABAPENTIN 400 MG CAP PO SCH (21:51)
[2022-03-08] MEDS: CHLORHEXIDINE GLUCONATE 15 ML CUP MUCOUS MEM SCH (21:51)
[2022-03-08] MEDS: ATORVASTATIN 80 MG TAB PO SCH (21:51)
[2022-03-08 22:49] LABS: Partial Thromboplastin Time 55.4 sec (22.0-30.0)
[2022-03-08 22:50] LABS: Magnesium 1.6 mg/dL (1.6-2.3); Potassium 3.7 mmol/L (3.5-5.1)
[2022-03-08 23:59] LABS: Anisocytosis Moderate; HCT 22.5 % (34.0-46.0); Hypochromasia Marked; MCH 26.6 pg (25.0-35.0); MCHC 31.4 g/dL (31.0-37.0); MCV 84.8 fL (80.0-100.0); Mean Platelet Volume 8.9; Microcytosis Slight; Platelet Count 238 k/uL (150-450); RBC 2.65 m/uL (3.80-5.40); RDW 20.2 % (11.5-15.5); WBC 12.6 k/uL (3.8-10.6)
[2022-03-09 00:01] LABS: HGB 7.1 gm/dL (11.4-16.0)
[2022-03-09] MEDS ORDERED: POTASSIUM CHLORIDE 10 MEQ in WATER FOR INJECTION 1 100ML.BAG IVPB STA (00:17)
[2022-03-09 00:20] LABS: INR 1.6 (<1.2); Prothrombin Time 16.2 sec (9.0-12.0)
[2022-03-09 00:24] LABS: Glucose,Whole Blood 100 mg/dL (70-110)
[2022-03-09] MEDS: INSULIN ASPART (NovoLOG) 100 UNIT/ML VIAL SQ SCH ×4 (00:24→18:47)
[2022-03-09] MEDS: MAGNESIUM SULFATE-D5W PMX 1 GM in DEXTROSE/WATER 1 100ML.BAG IVPB SCH ×2 (00:49→02:45)
[2022-03-09] MEDS: IPRATROPIUM-ALBUTEROL 3 ML NEB INHALATION SCH ×6 (03:16→23:47)
[2022-03-09 05:49] LABS: Glucose,Whole Blood 233 mg/dL (70-110)
[2022-03-09 05:49] LABS: ABG Base Excess 7.2 mmol/L; ABG HCO3 29 mmol/L (21-25); ABG PCO2 32 mmHg (35-45); ABG PO2 249 mmHg (83-108); ABG TCO2 30 mmol/L (19-24)
[2022-03-09 06:01] LABS: Anisocytosis Moderate; Basophils % (A) 0 %; Eosinophils # (A) 0.2 k/uL (0-0.7); Eosinophils % (A) 1 %; Hypochromasia Marked; Lymphocytes # (A) 1.8 k/uL (1.0-4.8); Lymphocytes % (A) 13 %; MCH 25.8 pg (25.0-35.0); MCHC 30.9 g/dL (31.0-37.0); MCV 83.5 fL (80.0-100.0); Mean Platelet Volume 8.9; Microcytosis Slight; Monocytes # (A) 0.6 k/uL (0-1.0); Monocytes % (A) 5 %; Neutrophils # (A) 10.7 k/uL (1.3-7.7); Neutrophils % (A) 80 %; Platelet Count 217 k/uL (150-450); RBC 2.28 m/uL (3.80-5.40); RDW 20.6 % (11.5-15.5); WBC 13.4 k/uL (3.8-10.6)
[2022-03-09 06:06] LABS: ABG PH 7.57 (7.35-7.45); Allen Test Performed? No
[2022-03-09 06:17] LABS: Albumin 2.4 g/dL (3.5-5.0); Calcium 7.5 mg/dL (8.4-10.2); Total Protein 4.9 g/dL (6.3-8.2)
[2022-03-09 06:24] LABS: Potassium 3.9 mmol/L (3.5-5.1)
[2022-03-09 06:29] LABS: HGB 5.9 gm/dL (11.4-16.0)
[2022-03-09 06:46] LABS: INR 1.6 (<1.2); Partial Thromboplastin Time 54.1 sec (22.0-30.0); Prothrombin Time 16.6 sec (9.0-12.0)
[2022-03-09] MEDS ORDERED: HEPARIN SODIUM,PORCINE 10,000 UNIT in SODIUM CHLORIDE 0.9% 1,000 ML IRRIGATION PRN (07:00)
[2022-03-09] MEDS ORDERED: HEPARIN SODIUM,PORCINE 2,500 UNIT in SODIUM CHLORIDE 0.9% 250 ML IRRIGATION PRN (07:00)
--- NOTE | 2022-03-09 07:19 | XR ---
EXAMINATION TYPE: XR chest 1V portable DATE OF EXAM: 03/09/2022 5:23 AM COMPARISON: Chest radiographs from 04/08/2022 TECHNIQUE: XR chest 1V portable Portable AP radiograph of the chest. CLINICAL INDICATION:Female, 47 years old with history of cardiac arrest; FINDINGS: Lungs/Pleura: There is no evidence of pleural effusion, focal consolidation, or pneumothorax. Pulmonary vascularity: Pulmonary vascular congestion. Heart/mediastinum: Cardiomediastinal silhouette is enlarged and stable. Stents project over the heart . Musculoskeletal: No acute osseous pathology. Other findings: Right upper extremity axillary stent. Left axillary surgical clips. Lines/Tubes: Endotracheal tube with distal tip 3.4 cm above the jeffy Nasogastric tube with its distal tip projecting under the diaphragm. Side-port projects near gastroes ophageal junction. IMPRESSION: 1. Nasogastric tube side-port terminates near antolin gastroesophageal junction consider advancement of 7 cm for optimal placement. 2. Cardiomegaly with pulmonary vascular congestion. This appears similar to prior.
[2022-03-09] MEDS: CALCIUM ACETATE 667 MG TAB PO SCH ×3 (07:35→17:18)
[2022-03-09] MEDS: MIDODRINE 5 MG TAB PO SCH ×3 (07:35→17:18)
[2022-03-09] MEDS ORDERED: SODIUM CHLORIDE 0.9% 500 ML 200 ML IV ONE (07:36)
--- NOTE | 2022-03-09 09:04 | P.PN ---
Subjective Progress Note Date: 03/09/22 Principal diagnosis: Cardiogenic shock This is a 47-year-old female patient with CAD and prior stenting of the LCx and LAD was admitted to the hospital with chest discomfort. She went into cardiac arrest yesterday which she underwent an emergent heart catheterization and she underwent stenting of the LAD and LCx. Before the procedure and during the procedure she went into multiple times of cardiac arrest received CPR and received shock as well as. Mechanical support was initiated in addition to vasopressors. She patient was seen this morning. She is slightly unstable and requiring small doses of norepinephrine. She continues to have the mechanical support. Unfortu nately she bled from around the site in the left groin and her hemoglobin this morning is 5.9 but she is Jehovah witness and she cannot receive a blood brought acts. I am giving her a bolus of 200 mL of 0.9 normal saline. Pulmonary critical care team on the case as well. The situation is very critical and the prognosis is very poor. She continues to be on dual antiplatelet therapy as well as high intensity statin. Objective - Vital Signs Vital signs: Vital Signs Temp 98.2 F 03/09/22 04:00 Pulse 112 H 03/09/22 08:00 Resp 22 03/09/22 07:00 BP 137/111 03/09/22 07:00 Pulse Ox 100 03/09/22 06:45 FiO2 40 03/09/22 07:38 Intake & Output 03/08/22 03/09/22 03/09/22 18:59 06:59 18:59 Intake Total 2246.863 641.802 72.084 Output Total 0 0 Balance 2246.863 641.802 72.084 Weight 67.5 kg Intake: IV 1177 274 23 0.9@20mls/hr 220 20 Potassium Chloride 20 meq 200 In Water For Injection 1 100ml.bag @ 50 mls/hr IVPB Q2H [facility]O Rx#: [id number] pressure bag 54 3 Intake, IV Titration 69.863 367.802 49.084 Amount Heparin Sod,Pork in 0.45% 43.045 NaCl 25,000 unit In 0.45 % NaCl 1 250ml.bag @ 12 UNITS/KG/HR 7.076 mls/hr IV .Q24H ALO Rx#: [id number] Heparin Sod,Pork in 0.45% 8.845 62.534 0 NaCl 25,000 unit In 0.45 % NaCl 1 250ml.bag @ 12 UNITS/KG/HR 7.076 mls/hr IV .Q24H ALO Rx#: [id number] Norepinephrine 4 mg In 17.973 111.806 31.453 Sodium Chloride 0.9% 250 ml @ 0.05 MCG/KG/MIN 11. 233 mls/hr IV .[id number] ALO Rx#:[id number] propofoL 1,000 mg In 193.462 17.631 Empty Bag 1 bag @ 5 MCG/ KG/MIN 1.769 mls/hr IV . Q24H ALO Rx#:[id number] Hemodialysis 1000 Output: Urine 0 0 Other: # Bowel Movements 1 ABP, PAP, CO, CI - Last Documented Arterial Blood Pressure 95/82 - Constitutional General appearance: Present: no acute distress - Respiratory Respiratory: bilateral: diminished - Cardiovascular Rhythm: regular Heart sounds: normal: S1, S2 - Labs CBC & Chem 7: 03/09/22 05:46 03/09/22 05:46 Labs: Abnormal Lab Results - Last 24 Hours (Table) 03/08/22 03/08/22 03/08/22 Range/Units 03:45 11:30 11:56 WBC (3.8-10.6) k/uL RBC (3.80-5.40) m/uL Hgb (11.4-16.0) gm/dL Hct (34.0-46.0) % MCHC (31.0-37.0) g/dL RDW (11.5-15.5) % Neutrophils # (1.3-7.7) k/uL Lymphocytes # (1.0-4.8) k/uL PT (9.0-12.0) sec INR (<1.2) APTT (22.0-30.0) sec ABG pH (7.35-7.45) ABG pCO2 (35-45) mmHg ABG pO2 (83-108) mmHg ABG HCO3 (21-25) mmol/L ABG Total CO2 (19-24) mmol/L ABG O2 Saturation (94-97) % ABG Lactic Acid (0.5-1.6) mmol/L Sodium 136 L (137-145) mmol/L Potassium (3.5-5.1) mmol/L BUN 49 H (7-17) mg/dL Creatinine 7.18 H* (0.52-1.04) mg/dL Glucose 111 H (74-99) mg/dL POC Glucose (mg/dL) 114 H (70-110) mg/dL Plasma Lactic Acid Mic (0.7-2.0) mmol/L Calcium 8.3 L (8.4-10.2) mg/dL Total Bilirubin (0.2-1.3) mg/dL Delta Bilirubin (0.0-0.2) mg/dL AST (14-36) U/L ALT (4-34) U/L Lactate Dehydrogenase (313-618) U/L Troponin I 1.020 H* (0.000-0.034) ng/mL Total Protein (6.3-8.2) g/dL Albumin (3.5-5.0) g/dL Crossmatch 03/08/22 03/08/22 03/08/22 Range/Units 14:14 14:59 14:59 WBC 16.2 H (3.8-10.6) k/uL RBC 3.37 L (3.80-5.40) m/uL Hgb 8.7 L (11.4-16.0) gm/dL Hct 29.9 L (34.0-46.0) % MCHC 29.1 L (31.0-37.0) g/dL RDW 20.0 H (11.5-15.5) % Neutrophils # 14.9 H (1.3-7.7) k/uL Lymphocytes # 0.9 L (1.0-4.8) k/uL PT (9.0-12.0) sec INR (<1.2) APTT (22.0-30.0) sec ABG pH 7.29 L (7.35-7.45) ABG pCO2 49 H (35-45) mmHg ABG pO2 351 H (83-108) mmHg ABG HCO3 (21-25) mmol/L ABG Total CO2 25 H (19-24) mmol/L ABG O2 Saturation 99.8 H (94-97) % ABG Lactic Acid (0.5-1.6) mmol/L Sodium (137-145) mmol/L Potassium 3.4 L (3.5-5.1) mmol/L BUN 25 H (7-17) mg/dL Creatinine 3.84 H (0.52-1.04) mg/dL Glucose 240 H (74-99) mg/dL POC Glucose (mg/dL) (70-110) mg/dL Plasma Lactic Acid Mic (0.7-2.0) mmol/L Calcium 7.8 L (8.4-10.2) mg/dL Total Bilirubin (0.2-1.3) mg/dL Delta Bilirubin 0.6 H (0.0-0.2) mg/dL AST 298 H (14-36) U/L ALT 116 H (4-34) U/L Lactate Dehydrogenase (313-618) U/L Troponin I (0.000-0.034) ng/mL Total Protein 5.5 L (6.3-8.2) g/dL Albumin 2.8 L (3.5-5.0) g/dL Crossmatch 03/08/22 03/08/22 03/08/22 Range/Units 14:59 14:59 15:44 WBC (3.8-10.6) k/uL RBC (3.80-5.40) m/uL Hgb (11.4-16.0) gm/dL Hct (34.0-46.0) % MCHC (31.0-37.0) g/dL RDW (11.5-15.5) % Neutrophils # (1.3-7.7) k/uL Lymphocytes # (1.0-4.8) k/uL PT (9.0-12.0) sec INR (<1.2) APTT (22.0-30.0) sec ABG pH (7.35-7.45) ABG pCO2 (35-45) mmHg ABG pO2 (83-108) mmHg ABG HCO3 (21-25) mmol/L ABG Total CO2 (19-24) mmol/L ABG O2 Saturation (94-97) % ABG Lactic Acid 8.7 H* (0.5-1.6) mmol/L Sodium (137-145) mmol/L Potassium (3.5-5.1) mmol/L BUN (7-17) mg/dL Creatinine (0.52-1.04) mg/dL Glucose (74-99) mg/dL POC Glucose (mg/dL) (70-110) mg/dL Plasma Lactic Acid Mic 10.1 H* (0.7-2.0) mmol/L Calcium (8.4-10.2) mg/dL Total Bilirubin (0.2-1.3) mg/dL Delta Bilirubin (0.0-0.2) mg/dL AST (14-36) U/L ALT (4-34) U/L Lactate Dehydrogenase (313-618) U/L Troponin I 2.260 H* (0.000-0.034) ng/mL Total Protein (6.3-8.2) g/dL Albumin (3.5-5.0) g/dL Crossmatch 03/08/22 03/08/22 03/08/22 Range/Units 16:15 16:51 18:22 WBC (3.8-10.6) k/uL RBC (3.80-5.40) m/uL Hgb (11.4-16.0) gm/dL Hct (34.0-46.0) % MCHC (31.0-37.0) g/dL RDW (11.5-15.5) % Neutrophils # (1.3-7.7) k/uL Lymphocytes # (1.0-4.8) k/uL PT 16.5 H (9.0-12.0) sec INR 1.6 H (<1.2) APTT 104.9 H* (22.0-30.0) sec ABG pH (7.35-7.45) ABG pCO2 (35-45) mmHg ABG pO2 65 L (83-108) mmHg ABG HCO3 26 H (21-25) mmol/L ABG Total CO2 28 H (19-24) mmol/L ABG O2 Saturation 91.2 L (94-97) % ABG Lactic Acid (0.5-1.6) mmol/L Sodium (137-145) mmol/L Potassium (3.5-5.1) mmol/L BUN (7-17) mg/dL Creatinine (0.52-1.04) mg/dL Glucose (74-99) mg/dL POC Glucose (mg/dL) (70-110) mg/dL Plasma Lactic Acid Mic 4.4 H* (0.7-2.0) mmol/L Calcium (8.4-10.2) mg/dL Total Bilirubin (0.2-1.3) mg/dL Delta Bilirubin (0.0-0.2) mg/dL AST (14-36) U/L ALT (4-34) U/L Lactate Dehydrogenase (313-618) U/L Troponin I (0.000-0.034) ng/mL Total Protein (6.3-8.2) g/dL Albumin (3.5-5.0) g/dL Crossmatch 03/08/22 03/08/22 03/08/22 Range/Units 18:22 18:59 22:30 WBC (3.8-10.6) k/uL RBC (3.80-5.40) m/uL Hgb (11.4-16.0) gm/dL Hct (34.0-46.0) % MCHC (31.0-37.0) g/dL RDW (11.5-15.5) % Neutrophils # (1.3-7.7) k/uL Lymphocytes # (1.0-4.8) k/uL PT (9.0-12.0) sec INR (<1.2) APTT 55.4 H (22.0-30.0) sec ABG pH (7.35-7.45) ABG pCO2 (35-45) mmHg ABG pO2 (83-108) mmHg ABG HCO3 (21-25) mmol/L ABG Total CO2 (19-24) mmol/L ABG O2 Saturation (94-97) % ABG Lactic Acid (0.5-1.6) mmol/L Sodium (137-145) mmol/L Potassium (3.5-5.1) mmol/L BUN (7-17) mg/dL Creatinine (0.52-1.04) mg/dL Glucose (74-99) mg/dL POC Glucose (mg/dL) 219 H (70-110) mg/dL Plasma Lactic Acid Mic (0.7-2.0) mmol/L Calcium (8.4-10.2) mg/dL Total Bilirubin (0.2-1.3) mg/dL Delta Bilirubin (0.0-0.2) mg/dL AST (14-36) U/L ALT (4-34) U/L Lactate Dehydrogenase 2167 H (313-618) U/L Troponin I (0.000-0.034) ng/mL Total Protein (6.3-8.2) g/dL Albumin (3.5-5.0) g/dL Crossmatch 03/08/22 03/08/22 03/08/22 Range/Units 22:30 22:30 23:45 WBC (3.8-10.6) k/uL RBC (3.80-5.40) m/uL Hgb (11.4-16.0) gm/dL Hct (34.0-46.0) % MCHC (31.0-37.0) g/dL RDW (11.5-15.5) % Neutrophils # (1.3-7.7) k/uL Lymphocytes # (1.0-4.8) k/uL PT 16.2 H (9.0-12.0) sec INR 1.6 H (<1.2) APTT (22.0-30.0) sec ABG pH (7.35-7.45) ABG pCO2 (35-45) mmHg ABG pO2 (83-108) mmHg ABG HCO3 (21-25) mmol/L ABG Total CO2 (19-24) mmol/L ABG O2 Saturation (94-97) % ABG Lactic Acid 3.6 H* (0.5-1.6) mmol/L Sodium (137-145) mmol/L Potassium (3.5-5.1) mmol/L BUN (7-17) mg/dL Creatinine (0.52-1.04) mg/dL Glucose (74-99) mg/dL POC Glucose (mg/dL) (70-110) mg/dL Plasma Lactic Acid Mic (0.7-2.0) mmol/L Calcium (8.4-10.2) mg/dL Total Bilirubin (0.2-1.3) mg/dL Delta Bilirubin (0.0-0.2) mg/dL AST (14-36) U/L ALT (4-34) U/L Lactate Dehydrogenase 2463 H (313-618) U/L Troponin I (0.000-0.034) ng/mL Total Protein (6.3-8.2) g/dL Albumin (3.5-5.0) g/dL Crossmatch 03/08/22 03/09/22 03/09/22 Range/Units 23:56 00:09 02:30 WBC 12.6 H (3.8-10.6) k/uL RBC 2.65 L (3.80-5.40) m/uL Hgb 7.1 L D (11.4-16.0) gm/dL Hct 22.5 L (34.0-46.0) % MCHC (31.0-37.0) g/dL RDW 20.2 H (11.5-15.5) % Neutrophils # (1.3-7.7) k/uL Lymphocytes # (1.0-4.8) k/uL PT (9.0-12.0) sec INR (<1.2) APTT (22.0-30.0) sec ABG pH (7.35-7.45) ABG pCO2 (35-45) mmHg ABG pO2 (83-108) mmHg ABG HCO3 (21-25) mmol/L ABG Total CO2 (19-24) mmol/L ABG O2 Saturation (94-97) % ABG Lactic Acid 1.9 H (0.5-1.6) mmol/L Sodium (137-145) mmol/L Potassium (3.5-5.1) mmol/L BUN (7-17) mg/dL Creatinine (0.52-1.04) mg/dL Glucose (74-99) mg/dL POC Glucose (mg/dL) (70-110) mg/dL Plasma Lactic Acid Mic (0.7-2.0) mmol/L Calcium (8.4-10.2) mg/dL Total Bilirubin (0.2-1.3) mg/dL Delta Bilirubin (0.0-0.2) mg/dL AST (14-36) U/L ALT (4-34) U/L Lactate Dehydrogenase (313-618) U/L Troponin I (0.000-0.034) ng/mL Total Protein (6.3-8.2) g/dL Albumin (3.5-5.0) g/dL Crossmatch See Detail 03/09/22 03/09/22 03/09/22 Range/Units 02:30 05:46 05:46 WBC 13.4 H (3.8-10.6) k/uL RBC 2.28 L (3.80-5.40) m/uL Hgb 5.9 L* (11.4-16.0) gm/dL Hct 19.0 L* (34.0-46.0) % MCHC 30.9 L (31.0-37.0) g/dL RDW 20.6 H (11.5-15.5) % Neutrophils # 10.7 H (1.3-7.7) k/uL Lymphocytes # (1.0-4.8) k/uL PT 16.6 H (9.0-12.0) sec INR 1.6 H (<1.2) APTT 54.1 H (22.0-30.0) sec ABG pH (7.35-7.45) ABG pCO2 (35-45) mmHg ABG pO2 (83-108) mmHg ABG HCO3 (21-25) mmol/L ABG Total CO2 (19-24) mmol/L ABG O2 Saturation (94-97) % ABG Lactic Acid (0.5-1.6) mmol/L Sodium (137-145) mmol/L Potassium (3.5-5.1) mmol/L BUN (7-17) mg/dL Creatinine (0.52-1.04) mg/dL Glucose (74-99) mg/dL POC Glucose (mg/dL) (70-110) mg/dL Plasma Lactic Acid Mic (0.7-2.0) mmol/L Calcium (8.4-10.2) mg/dL Total Bilirubin (0.2-1.3) mg/dL Delta Bilirubin (0.0-0.2) mg/dL AST (14-36) U/L ALT (4-34) U/L Lactate Dehydrogenase 2734 H (313-618) U/L Troponin I (0.000-0.034) ng/mL Total Protein (6.3-8.2) g/dL Albumin (3.5-5.0) g/dL Crossmatch 03/09/22 03/09/22 03/09/22 Range/Units 05:46 05:46 05:46 WBC (3.8-10.6) k/uL RBC (3.80-5.40) m/uL Hgb (11.4-16.0) gm/dL Hct (34.0-46.0) % MCHC (31.0-37.0) g/dL RDW (11.5-15.5) % Neutrophils # (1.3-7.7) k/uL Lymphocytes # (1.0-4.8) k/uL PT (9.0-12.0) sec INR (<1.2) APTT (22.0-30.0) sec ABG pH 7.57 H* (7.35-7.45) ABG pCO2 32 L (35-45) mmHg ABG pO2 249 H (83-108) mmHg ABG HCO3 29 H (21-25) mmol/L ABG Total CO2 30 H (19-24) mmol/L ABG O2 Saturation 100.0 H (94-97) % ABG Lactic Acid 2.0 H (0.5-1.6) mmol/L Sodium (137-145) mmol/L Potassium (3.5-5.1) mmol/L BUN 44 H (7-17) mg/dL Creatinine 4.61 H (0.52-1.04) mg/dL Glucose 182 H (74-99) mg/dL POC Glucose (mg/dL) (70-110) mg/dL Plasma Lactic Acid Mic (0.7-2.0) mmol/L Calcium 7.5 L (8.4-10.2) mg/dL Total Bilirubin 2.0 H (0.2-1.3) mg/dL Delta Bilirubin (0.0-0.2) mg/dL AST 261 H (14-36) U/L ALT 73 H (4-34) U/L Lactate Dehydrogenase 2778 H (313-618) U/L Troponin I (0.000-0.034) ng/mL Total Protein 4.9 L (6.3-8.2) g/dL Albumin 2.4 L (3.5-5.0) g/dL Crossmatch 03/09/22 Range/Units 05:47 WBC (3.8-10.6) k/uL RBC (3.80-5.40) m/uL Hgb (11.4-16.0) gm/dL Hct (34.0-46.0) % MCHC (31.0-37.0) g/dL RDW (11.5-15.5) % Neutrophils # (1.3-7.7) k/uL Lymphocytes # (1.0-4.8) k/uL PT (9.0-12.0) sec INR (<1.2) APTT (22.0-30.0) sec ABG pH (7.35-7.45) ABG pCO2 (35-45) mmHg ABG pO2 (83-108) mmHg ABG HCO3 (21-25) mmol/L ABG Total CO2 (19-24) mmol/L ABG O2 Saturation (94-97) % ABG Lactic Acid (0.5-1.6) mmol/L Sodium (137-145) mmol/L Potassium (3.5-5.1) mmol/L BUN (7-17) mg/dL Creatinine (0.52-1.04) mg/dL Glucose (74-99) mg/dL POC Glucose (mg/dL) 233 H (70-110) mg/dL Plasma Lactic Acid Mic (0.7-2.0) mmol/L Calcium (8.4-10.2) mg/dL Total Bilirubin (0.2-1.3) mg/dL Delta Bilirubin (0.0-0.2) mg/dL AST (14-36) U/L ALT (4-34) U/L Lactate Dehydrogenase (313-618) U/L Troponin I (0.000-0.034) ng/mL Total Protein (6.3-8.2) g/dL Albumin (3.5-5.0) g/dL Crossmatch Assessment and Plan Assessment: Assessment #1 cardiac arrest #2 cardiogenic shock #3 CAD and status post a stenting of the LCx and LAD #4 end stage renal disease on dialysis #5 blood loss anemia #6 multiple comorbid conditions Plan #1 right wean the patient from norepinephrine #2 continue dual antiplatelet therapy and high intensity statin #3 continue mechanical support #4 hoping to give the patient's blood transfusion if it's agreeable by the famil y and knowing that as a life-saving #5 intensive care team on the case #6 nephrology team on the case as well
[2022-03-09] MEDS ORDERED: DESMOPRESSIN ACETATE 20 MCG in SODIUM CHLORIDE 0.9% 50 ML IVPB ONE (10:02)
[2022-03-09] MEDS: GABAPENTIN 100 MG CAP PO SCH (10:34)
[2022-03-09] MEDS: PANTOPRAZOLE 40 MG/10 ML VIAL IVP SCH (10:34)
[2022-03-09] MEDS: PRASUGREL 10 MG TAB PO SCH (10:34)
[2022-03-09] MEDS: SODIUM FERRIC GLUCONAT-SUCROSE 125 MG in SODIUM CHLORIDE 0.9% 100 ML IVPB SCH (10:34)
[2022-03-09] MEDS: ASPIRIN 81 MG PO SCH (10:34)
[2022-03-09] MEDS: CHLORHEXIDINE GLUCONATE 15 ML CUP MUCOUS MEM SCH ×2 (10:35→21:35)
--- NOTE | 2022-03-09 10:50 | P.CNNES ---
History of Present Illness Consult date: 03/09/22 Requesting physician: Renaldo Schaeffer Reason for Consult: prolonged cardiac arrest History of Present Illness: This is a 47-year-old woman with history of end-stage renal disease on dialysis, type 2 diabetes, coronary artery disease status post stent, hypertension, hyperlipidemia who presented emergency department because of chest pain. Neurology is consulted for neurological evaluation after prolonged cardiac arrest. History is obtained from patient nurse as well as medical records. It seems that yesterday (03/08/2022) patient was having dialysis and the patient was reporting substernal chest and worsening of diaphoresis. And the she was hypotensive CODE BLUE was activated at around 11:54 am. And the patient was unresponsive and unknown when the patient lost her pulse as a result CPR was done seems the patient had a prolonged cardiac arrest in which she had to [facility] was later in the day yesterday and then was transferred to the [facility] for intervention and while in the [facility] had another CODE BLUE. Patient the EKG showed later of V. tach and she got defibrillator she got amiodarone and lidocaine calcium chloride. Required epinephrine bicarbonate and was on epinephrine drip as well as bicarbonate drip. Patient had cardiac cath with PCI and it's reported that she had successful stenting of the left anterior descending artery, successful stenting of the left circumflex coronary artery, successful placement of Impella in the left ventricle as well as he attempted to aspirate the thrombectomy from the left anterior descending artery. Looks like she had a large thrombus burning involving the distal left main and left LCx and LAD. She was in cardiogenic shock. IV heparin was continued. It is unknown exact down time in total per the nurse. Yesterday after the cardiac procedure, the patient was moving all extremities when she was in ICU after the procedure and following commands that as reported by the primary team. Per the patient's nurse patient is on IV propofol but was moving bilateral lower extremity and following some commands to the cardiology attending. According to the patient's nurse her anemia is worsening. Her most recent hemoglobin is 5.9 and hematocrit is 19.0. 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 She is on IV heparin drip. Today she IV Propofol 75mc/kg/min. Some of the other workup during his hospital visit consisted of Patient's platelet currently is 217,000. Most recent creatinine is 4.6 which is trending down compared to yesterday AST of 2060 and ALT of 73. Calcium 7.5, magnesium is 2.2, the glucose serum was 182. Review of Systems Review of system is limited by the parent positive and negative as per HPI Past Medical History Past Medical History: Coronary Artery Disease (CAD), Heart Failure, Diabetes Mellitus, Dialysis, Eye Disorder, GERD/Reflux, Hyperlipidemia, Hypertension, Myocardial Infarction ([place]), Renal Disease Additional Past Medical History / Comment(s): IDDM type II, neuropathy bilateral feet, ESRD with home hemodialysis, anemia, bilateral retinal bleeds, sepsis with respiratory failure and vented once, RLS, hiatal hernia, diverticular disease, possible colitis, migraines, shingelles in 2016, Jehovah Witness/NO BLOOD PRODUCTS. Last Myocardial Infarction Date:: 08/2020 History of Any Multi-Drug Resistant Organisms: None Reported Past Surgical History: Bowel Resection, Breast Surgery, Cholecystectomy, Heart Catheterization With Stent, Hernia Repair Additional Past Surgical History / Comment(s): R breast biopsy X 2 both benign, breast reduction, akos[place] cataracts removed HAS HAD 2 PERITONEAL DIALYSIS CATHETERS, AND 5 HEMODIALYSIS CATHETHERS, umbilical hernia repair with ischemic bowel within-small resection, colonoscopy/EGD. Removed L Ovary. Graft R arm. Past Anesthesia/Blood Transfusion Reactions: Motion Sickness, Postoperative Nausea & Vomiting (PONV) Additional Past Anesthesia/Blood Transfusion Reaction / Comment(s): NO BLOOD PRODUCTS-pt is a Druze Date of Last Stent Placement:: 09/20/21 Smoking Status: Never smoker - Past Family History Mother Family Medical History: Osteoarthritis (OA) Additional Family Medical History / Comment(s): . Father Family Medical History: Cancer Additional Family Medical History / Comment(s): Father of LIVER cancer at age 61 yrs. Medications and Allergies Home Medications Medication Instructions Recorded Confirmed Type Magnebind 300 1 tab PO TID-W/MEALS 03/17/19 03/07/22 History rOPINIRole HCL [Requip] 1 mg PO BID 03/17/19 03/07/22 History Gabapentin [Neurontin] 200 mg PO DAILY@1200 07/16/21 03/07/22 History Calcium Acetate [PhosLo] 1,334 mg PO TID-W/MEALS 08/16/21 03/07/22 History Cinacalcet HCl [Sensipar] 90 mg PO MOTUWETHFR 08/16/21 03/07/22 History Ergocalciferol (Vitamin D2) 1,250 mcg PO MO 08/16/21 03/07/22 History [Drisdol (50,000 Iu)] Lidocaine-Prilocaine Cream [Emla 1 applic TOPICAL DAILY PRN 08/16/21 03/07/22 History Cream 2.5%/2.5%] calcitrioL [Calcitriol] 1 mcg PO DAILY 08/16/21 03/07/22 History rOPINIRole HCL [Requip] 0.25 mg PO BID 08/16/21 03/07/22 History Atorvastatin [Lipitor] 80 mg PO DAILY 30 Days #30 tab 08/20/21 03/07/22 Rx Clopidogrel [Plavix] 75 mg PO DAILY 30 Days #30 tab 08/20/21 03/07/22 Rx Nitroglycerin Sl Tabs [Nitrostat] 0.4 mg SUBLINGUAL Q5M PRN #25 tab 08/20/21 03/07/22 Rx Zolpidem [Ambien] 5 mg PO HS PRN 09/20/21 03/07/22 History Metoprolol Tartrate [Lopressor] 25 mg PO BID #60 tab 09/22/21 03/07/22 Rx Aspirin 81 mg PO DAILY 01/30/22 03/07/22 History Cyclobenzaprine [Flexeril] 10 mg PO TID PRN 01/30/22 03/07/22 History Gabapentin [Neurontin] 400 mg PO HS 01/30/22 03/07/22 History Albuterol Inhaler [Ventolin Hfa 1 puff INHALATION RT-QID PRN 30 02/01/22 03/07/22 Rx Inhaler] Days #8 gm Isosorbide Mononitrate ER [Imdur] 30 mg PO DAILY 30 Days #30 tab 02/01/22 03/07/22 Rx Midodrine [ProAmatine] 5 mg PO TID 30 Days #90 tab 02/01/22 03/07/22 Rx Pantoprazole [Protonix] 40 mg PO BID 30 Days #60 tab 02/01/22 03/07/22 Rx Amitriptyline HCl 10 mg PO HS 03/07/22 03/07/22 History Darbepoetin Tigre [Aranesp] 40 mcg SQ Q7D each 03/08/22 Rx Allergies Allergy/AdvReac Type Severity Reaction Status Date / Time No Known Allergies Allergy Verified 03/07/22 00:02 Physical Examination - Vital Signs Vital Signs: Vital Signs Temp Pulse Resp BP BP Pulse Ox FiO2 03/09/22 09:00 114 H 19 117/88 91 L 03/09/22 08:45 115 H 22 114/88 100 03/09/22 08:30 115 H 22 113/94 100 03/09/22 08:15 116 H 22 133/105 100 03/09/22 08:00 98.8 F 114 H 22 121/102 94 L 35 03/09/22 07:49 110 H 03/09/22 07:45 113 H 22 93/68 95 03/09/22 07:38 40 03/09/22 07:30 112 H 22 113/83 100 03/09/22 07:15 115 H 22 118/88 92 L 03/09/22 07:00 109 H 22 137/111 03/09/22 06:45 109 H 22 123/95 100 03/09/22 06:30 110 H 22 111/89 99 03/09/22 06:15 105 H 22 104/88 03/09/22 06:00 104 H 22 113/92 93 L 03/09/22 05:45 102 H 22 90/76 100 03/09/22 05:30 105 H 22 109/87 100 03/09/22 05:15 105 H 22 109/82 100 03/09/22 05:00 105 H 22 114/86 100 50 03/09/22 04:45 107 H 22 120/87 100 03/09/22 04:30 111 H 23 106/80 100 03/09/22 04:15 106 H 22 111/85 100 03/09/22 04:00 98.2 F 105 H 22 113/86 100 50 03/09/22 03:45 101 H 22 114/91 100 03/09/22 03:33 102 H 03/09/22 03:30 100 22 101/81 100 03/09/22 03:22 101 H 03/09/22 03:16 50 03/09/22 03:15 94 22 95/77 100 03/09/22 03:00 96 22 100/81 100 50 03/09/22 02:45 97 22 109/90 100 03/09/22 02:30 102 H 22 109/93 100 03/09/22 02:15 103 H 22 114/94 100 03/09/22 02:00 105 H 22 114/94 03/09/22 01:45 96 22 100/86 03/09/22 01:30 96 22 95/77 03/09/22 01:15 97 22 100/81 03/09/22 01:00 97 22 98/81 03/09/22 00:45 97 22 97/80 100 03/09/22 00:30 98 22 107/87 100 03/09/22 00:15 98 22 105/87 100 03/09/22 00:00 99.3 F 96 22 97/81 100 50 03/08/22 23:52 93 22 97/81 100 03/08/22 23:45 92 11 L 96/76 03/08/22 23:44 91 03/08/22 23:36 90 03/08/22 23:30 90 22 100/84 100 03/08/22 23:27 50 03/08/22 23:15 90 22 102/82 100 03/08/22 23:00 89 22 95/76 100 03/08/22 22:45 89 22 93/78 100 03/08/22 22:30 90 22 94/80 100 03/08/22 22:15 92 22 94/78 100 03/08/22 22:00 92 22 95/79 100 03/08/22 21:45 93 22 96/80 100 03/08/22 21:30 92 22 96/80 100 03/08/22 21:15 94 17 101/29 100 03/08/22 21:00 91 0 L 100/82 03/08/22 20:45 92 22 103/86 100 03/08/22 20:30 91 22 100/85 100 03/08/22 20:15 89 22 102/86 99 03/08/22 20:03 80 03/08/22 20:00 84 22 104/87 100 50 03/08/22 19:49 82 03/08/22 19:45 80 22 103/80 50 03/08/22 19:30 79 22 104/91 100 03/08/22 19:15 79 22 104/91 100 03/08/22 19:00 78 22 109/93 100 03/08/22 18:45 97.7 F 78 22 99 03/08/22 18:30 78 22 100 03/08/22 18:15 78 22 100 03/08/22 18:00 78 22 138/112 100 03/08/22 17:45 79 22 100 03/08/22 17:30 80 22 100 03/08/22 17:15 81 22 100 03/08/22 17:00 85 22 123/101 100 03/08/22 16:45 84 22 95 03/08/22 16:30 86 22 93 L 03/08/22 16:15 87 22 94 L 03/08/22 16:00 96.1 F L 89 22 92 L 50 03/08/22 15:47 88 03/08/22 15:46 50 03/08/22 15:45 90 22 96 03/08/22 15:31 94 03/08/22 15:30 93 22 90 L 03/08/22 15:15 87 32 H 104/87 96 03/08/22 15:00 94.8 F L 95 28 H 130/102 95 50 03/08/22 14:51 50 03/08/22 14:12 75/31 Intake and Output 03/08/22 03/09/22 03/09/22 22:59 06:59 14:59 Intake Total 484.658 383.962 162.267 Output Total 0 0 0 Balance 484.658 383.962 162.267 Intake: IV 269 205 69 0.9@20mls/hr 60 160 60 Potassium Chloride 20 meq 200 In Water For Injection 1 100ml.bag @ 50 mls/hr IVPB Q2H [facility] Rx#: [id number] pressure bag 9 45 9 Intake, IV Titration 215.658 178.962 93.267 Amount Heparin Sod,Pork in 0.45% 34.495 36.884 0 NaCl 25,000 unit In 0.45 % NaCl 1 250ml.bag @ 12 UNITS/KG/HR 7.076 mls/hr IV .Q24H [facility]O Rx#: [id number] Norepinephrine 4 mg In 108.398 21.381 75.636 Sodium Chloride 0.9% 250 ml @ 0.05 MCG/KG/MIN 11. 233 mls/hr IV .[id number] [facility]O Rx#:[id number] propofoL 1,000 mg In 72.765 120.697 17.631 Empty Bag 1 bag @ 5 MCG/ KG/MIN 1.769 mls/hr IV . Q24H [facility]O Rx#:[id number] Output: Urine 0 0 0 Other: # Bowel Movements 1 Weight 67.5 kg ABP, PAP, CO, CI - Last 8 Hours Arterial Blood Pressure 106/79 Arterial Blood Pressure 116/84 Arterial Blood Pressure 115/85 Arterial Blood Pressure 104/78 Arterial Blood Pressure 128/92 Arterial Blood Pressure 127/90 Arterial Blood Pressure 94/71 Arterial Blood Pressure 102/80 Arterial Blood Pressure 95/82 Arterial Blood Pressure 102/88 Arterial Blood Pressure 111/94 Arterial Blood Pressure 112/92 Arterial Blood Pressure 99/83 Arterial Blood Pressure 116/85 Arterial Blood Pressure 89/70 Arterial Blood Pressure 114/80 Arterial Blood Pressure 110/75 Arterial Blood Pressure 114/77 Arterial Blood Pressure 120/81 Arterial Blood Pressure 104/70 Arterial Blood Pressure 113/75 Arterial Blood Pressure 114/77 Arterial Blood Pressure 115/85 Arterial Blood Pressure 96/74 Arterial Blood Pressure 91/71 Arterial Blood Pressure 100/66 Arterial Blood Pressure 109/85 Arterial Blood Pressure 112/86 Arterial Blood Pressure 114/86 Arterial Blood Pressure 97/80 GENERAL: The patient is lying in bed and is not in acute distress. CHEST: The heart rate is regular rate rhythm. No murmurs to auscultation. LUNG: Clear to auscultation bilaterally no wheezing noted throughout. Not labored breathing. ABDOMEN/GI: Bowel sounds present in all 4 quadrants. No tenderness to palpation throughout. NEUROLOGICAL: Limited because of her condition. IV Propofol 75mcg/kg/min and was taken down to 25mcg/kg/min for 20-25 minutes for neurological examination. Higher mental function: The patient is stupor. GCS 9 (E2, VT1, M6). Is not following commands spontaneously or attempting to verbalize. Cranial nerves: The pupils are round, equal 3mm and hard to appreciated eye reactivity bilaterally. Opens eye to suction and minimally to painful stimuli briefly. +ve corneal reflex bilaterally. No facial weakness. Grimaces face bilaterally to painful stimuli. Is slightly breathing over the vent. Has intact gag reflex. Motor: The strength is moving bilateral lower extremities sponatenously and is bending at bedside on own and moving side to side. Not moving uppers but grimaces to pain to painful stimuli. Has 4 extremity restraint. Normal tone and bulk. Cerebellum: Unable to assess. Sensation: Unable to assess light touch but grimaces face to painful stimuli on bilateral uppers. Reflexes (right/left): 1+ throughout. Plantars are mute bilaterally. Results - Laboratory Findings CBC and BMP: 03/09/22 05:46 03/09/22 05:46 Abnormal Lab Findings: Abnormal Labs 03/07/22 03/07/22 03/07/22 01:26 01:26 01:26 WBC RBC 3.45 L Hgb 8.8 L Hct 29.5 L MCHC 29.7 L RDW 19.7 H Neutrophils # Lymphocytes # PT 14.1 H INR 1.4 H APTT ABG pH ABG pCO2 ABG pO2 ABG HCO3 ABG Total CO2 ABG O2 Saturation ABG Lactic Acid Sodium 132 L Potassium 3.1 L Chloride 94 L BUN 39 H Creatinine 5.41 H Glucose 145 H POC Glucose (mg/dL) Plasma Lactic Acid Mic Calcium Phosphorus Iron TIBC Transferrin Ferritin Total Bilirubin Delta Bilirubin AST ALT Lactate Dehydrogenase Troponin I Total Protein 6.1 L Albumin 3.4 L Crossmatch 03/07/22 03/07/22 03/07/22 01:26 05:16 07:20 WBC RBC Hgb Hct MCHC RDW Neutrophils # Lymphocytes # PT INR APTT ABG pH ABG pCO2 ABG pO2 ABG HCO3 ABG Total CO2 ABG O2 Saturation ABG Lactic Acid Sodium Potassium Chloride BUN Creatinine Glucose POC Glucose (mg/dL) 140 H Plasma Lactic Acid Mic Calcium Phosphorus Iron TIBC Transferrin Ferritin Total Bilirubin Delta Bilirubin AST ALT Lactate Dehydrogenase Troponin I 0.572 H* 0.666 H* Total Protein Albumin Crossmatch 03/07/22 03/07/22 03/07/22 07:22 07:22 07:22 WBC RBC 3.44 L Hgb 8.7 L Hct 30.1 L MCHC 28.8 L RDW 19.6 H Neutrophils # Lymphocytes # PT INR APTT ABG pH ABG pCO2 ABG pO2 ABG HCO3 ABG Total CO2 ABG O2 Saturation ABG Lactic Acid Sodium 135 L Potassium 3.2 L Chloride 97 L BUN 42 H Creatinine 5.65 H Glucose 136 H POC Glucose (mg/dL) Plasma Lactic Acid Mic Calcium Phosphorus Iron TIBC Transferrin Ferritin Total Bilirubin Delta Bilirubin AST ALT Lactate Dehydrogenase Troponin I 0.769 H* Total Protein Albumin Crossmatch 03/07/22 03/07/22 03/07/22 13:11 13:11 17:06 WBC RBC Hgb Hct MCHC RDW Neutrophils # Lymphocytes # PT 13.8 H INR 1.3 H APTT 35.7 H ABG pH ABG pCO2 ABG pO2 ABG HCO3 ABG Total CO2 ABG O2 Saturation ABG Lactic Acid Sodium Potassium Chloride BUN Creatinine Glucose POC Glucose (mg/dL) 125 H Plasma Lactic Acid Mic Calcium Phosphorus 8.0 H Iron 44 L TIBC 174 L Transferrin 124.0 L Ferritin 1293.0 H Total Bilirubin Delta Bilirubin AST ALT Lactate Dehydrogenase Troponin I Total Protein Albumin Crossmatch 03/07/22 03/07/22 03/08/22 19:56 20:09 03:42 WBC RBC 3.60 L Hgb 9.2 L Hct 30.9 L MCHC 29.7 L RDW 19.6 H Neutrophils # Lymphocytes # PT INR APTT 33.9 H ABG pH ABG pCO2 ABG pO2 ABG HCO3 ABG Total CO2 ABG O2 Saturation ABG Lactic Acid Sodium Potassium Chloride BUN Creatinine Glucose POC Glucose (mg/dL) 116 H Plasma Lactic Acid Mic Calcium Phosphorus Iron TIBC Transferrin Ferritin Total Bilirubin Delta Bilirubin AST ALT Lactate Dehydrogenase Troponin I Total Protein Albumin Crossmatch 03/08/22 03/08/22 03/08/22 03:42 03:45 05:56 WBC RBC Hgb Hct MCHC RDW Neutrophils # Lymphocytes # PT INR APTT 75.4 H ABG pH ABG pCO2 ABG pO2 ABG HCO3 ABG Total CO2 ABG O2 Saturation ABG Lactic Acid Sodium 136 L Potassium Chloride BUN 49 H Creatinine 7.18 H* Glucose 111 H POC Glucose (mg/dL) 125 H Plasma Lactic Acid Mic Calcium 8.3 L Phosphorus Iron TIBC Transferrin Ferritin Total Bilirubin Delta Bilirubin AST ALT Lactate Dehydrogenase Troponin I Total Protein Albumin Crossmatch 03/08/22 03/08/22 03/08/22 11:30 11:56 14:14 WBC RBC Hgb Hct MCHC RDW Neutrophils # Lymphocytes # PT INR APTT ABG pH 7.29 L ABG pCO2 49 H ABG pO2 351 H ABG HCO3 ABG Total CO2 25 H ABG O2 Saturation 99.8 H ABG Lactic Acid Sodium Potassium Chloride BUN Creatinine Glucose POC Glucose (mg/dL) 114 H Plasma Lactic Acid Mic Calcium Phosphorus Iron TIBC Transferrin Ferritin Total Bilirubin Delta Bilirubin AST ALT Lactate Dehydrogenase Troponin I 1.020 H* Total Protein Albumin Crossmatch 03/08/22 03/08/22 03/08/22 14:59 14:59 14:59 WBC 16.2 H RBC 3.37 L Hgb 8.7 L Hct 29.9 L MCHC 29.1 L RDW 20.0 H Neutrophils # 14.9 H Lymphocytes # 0.9 L PT INR APTT ABG pH ABG pCO2 ABG pO2 ABG HCO3 ABG Total CO2 ABG O2 Saturation ABG Lactic Acid Sodium Potassium 3.4 L Chloride BUN 25 H Creatinine 3.84 H Glucose 240 H POC Glucose (mg/dL) Plasma Lactic Acid Mic 10.1 H* Calcium 7.8 L Phosphorus Iron TIBC Transferrin Ferritin Total Bilirubin Delta Bilirubin 0.6 H AST 298 H ALT 116 H Lactate Dehydrogenase Troponin I Total Protein 5.5 L Albumin 2.8 L Crossmatch 03/08/22 03/08/22 03/08/22 14:59 15:44 16:15 WBC RBC Hgb Hct MCHC RDW Neutrophils # Lymphocytes # PT 16.5 H INR 1.6 H APTT 104.9 H* ABG pH ABG pCO2 ABG pO2 ABG HCO3 ABG Total CO2 ABG O2 Saturation ABG Lactic Acid 8.7 H* Sodium Potassium Chloride BUN Creatinine Glucose POC Glucose (mg/dL) Plasma Lactic Acid Mic Calcium Phosphorus Iron TIBC Transferrin Ferritin Total Bilirubin Delta Bilirubin AST ALT Lactate Dehydrogenase Troponin I 2.260 H* Total Protein Albumin Crossmatch 03/08/22 03/08/22 03/08/22 16:51 18:22 18:22 WBC RBC Hgb Hct MCHC RDW Neutrophils # Lymphocytes # PT INR APTT ABG pH ABG pCO2 ABG pO2 65 L ABG HCO3 26 H ABG Total CO2 28 H ABG O2 Saturation 91.2 L ABG Lactic Acid Sodium Potassium Chloride BUN Creatinine Glucose POC Glucose (mg/dL) Plasma Lactic Acid Mic 4.4 H* Calcium Phosphorus Iron TIBC Transferrin Ferritin Total Bilirubin Delta Bilirubin AST ALT Lactate Dehydrogenase 2167 H Troponin I Total Protein Albumin Crossmatch 03/08/22 03/08/22 03/08/22 18:59 22:30 22:30 WBC RBC Hgb Hct MCHC RDW Neutrophils # Lymphocytes # PT INR APTT 55.4 H ABG pH ABG pCO2 ABG pO2 ABG HCO3 ABG Total CO2 ABG O2 Saturation ABG Lactic Acid Sodium Potassium Chloride BUN Creatinine Glucose POC Glucose (mg/dL) 219 H Plasma Lactic Acid Mic Calcium Phosphorus Iron TIBC Transferrin Ferritin Total Bilirubin Delta Bilirubin AST ALT Lactate Dehydrogenase 2463 H Troponin I Total Protein Albumin Crossmatch 03/08/22 03/08/22 03/08/22 22:30 23:45 23:56 WBC 12.6 H RBC 2.65 L Hgb 7.1 L D Hct 22.5 L MCHC RDW 20.2 H Neutrophils # Lymphocytes # PT 16.2 H INR 1.6 H APTT ABG pH ABG pCO2 ABG pO2 ABG HCO3 ABG Total CO2 ABG O2 Saturation ABG Lactic Acid 3.6 H* Sodium Potassium Chloride BUN Creatinine Glucose POC Glucose (mg/dL) Plasma Lactic Acid Mic Calcium Phosphorus Iron TIBC Transferrin Ferritin Total Bilirubin Delta Bilirubin AST ALT Lactate Dehydrogenase Troponin I Total Protein Albumin Crossmatch 03/09/22 03/09/22 03/09/22 00:09 02:30 02:30 WBC RBC Hgb Hct MCHC RDW Neutrophils # Lymphocytes # PT INR APTT ABG pH ABG pCO2 ABG pO2 ABG HCO3 ABG Total CO2 ABG O2 Saturation ABG Lactic Acid 1.9 H Sodium Potassium Chloride BUN Creatinine Glucose POC Glucose (mg/dL) Plasma Lactic Acid Mic Calcium Phosphorus Iron TIBC Transferrin Ferritin Total Bilirubin Delta Bilirubin AST ALT Lactate Dehydrogenase 2734 H Troponin I Total Protein Albumin Crossmatch See Detail 03/09/22 03/09/22 03/09/22 05:46 05:46 05:46 WBC 13.4 H RBC 2.28 L Hgb 5.9 L* Hct 19.0 L* MCHC 30.9 L RDW 20.6 H Neutrophils # 10.7 H Lymphocytes # PT 16.6 H INR 1.6 H APTT 54.1 H ABG pH ABG pCO2 ABG pO2 ABG HCO3 ABG Total CO2 ABG O2 Saturation ABG Lactic Acid Sodium Potassium Chloride BUN 44 H Creatinine 4.61 H Glucose 182 H POC Glucose (mg/dL) Plasma Lactic Acid Mic Calcium 7.5 L Phosphorus Iron TIBC Transferrin Ferritin Total Bilirubin 2.0 H Delta Bilirubin AST 261 H ALT 73 H Lactate Dehydrogenase 2778 H Troponin I Total Protein 4.9 L Albumin 2.4 L Crossmatch 03/09/22 03/09/22 03/09/22 05:46 05:46 05:47 WBC RBC Hgb Hct MCHC RDW Neutrophils # Lymphocytes # PT INR APTT ABG pH 7.57 H* ABG pCO2 32 L ABG pO2 249 H ABG HCO3 29 H ABG Total CO2 30 H ABG O2 Saturation 100.0 H ABG Lactic Acid 2.0 H Sodium Potassium Chloride BUN Creatinine Glucose POC Glucose (mg/dL) 233 H Plasma Lactic Acid Mic Calcium Phosphorus Iron TIBC Transferrin Ferritin Total Bilirubin Delta Bilirubin AST ALT Lactate Dehydrogenase Troponin I Total Protein Albumin Crossmatch Assessment and Plan Assessment: Prolonged cardiac arrest and had multiple episodes of arrest on 03/08/2022 (unsure exact total down time) due to NSTEMI. Acute coronary syndrome status post cardiac cath and PCI stenting of LAD and left circumflex with Impella Cardiogenic sock Likely anoxic encephalopathy due to above. Unable to exclude anoxic brain injury at this time. But was notified that the patient's is moving extremities and following commands. Some component of encephalopathy due to medication effect (IV Propofol) Acute hypoxic respiratory failure related to the to her multiple cardiac arrest requiring intubation and mechanical ventilation Acute on chronic anemia End-stage renal disease on dialysis Elevated liver function due to cardiogenic shock Previous history of coronary artery disease status post stenting Ischemic artery mild. Diabetes mellitus type 2 Dyslipidemia Hypertension Plan: I ordered an urgent CT of the head and EEG. 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 On my examination the patient is moving her lower extremities spontaneously and had good amount of brainstem the reflex the were intact. Patient condition is very critical The plan discussed with the rn nursery and the patient's nurse Thank you for the consultation. Raulito Linares M.D. Neuro-hospitalist Time with Patient: Greater than 30
--- NOTE | 2022-03-09 10:55 | P.PN ---
Subjective Progress Note Date: 03/09/22 Principal diagnosis: Cardiac arrest 47-year-old female patient with past medical history of ESRD on hemodialysis at home, type 2 diabetes mellitus, hypertension, hyperlipidemia, coronary artery disease with prior history of stenting 4 who came into the emergency department on 03/07/2022 for evaluation of sudden onset substernal pressure-like chest pain, rating it 10 out of 10 associated with shortness of breath and nausea. Patient took 2 sublingual nitroglycerin with relief a few hours, only to return a few hours later. Patient has a history of prior MIs, in her substernal chest discomfort was similar to that when she had her prior MIs. Chest x-ray showed pulmonary interstitial edema. EKG in the emergency department showed sinus rhythm, with a rate of 96, without acute ischemic abnormalities. Prior echocardiogram from January 2022 showed EF of 40-45%. Laboratory evaluation showed troponin of 0.57, 0.66, 0.76. The BUN of 42, creatinine of 5.6. Normal white count of 4.7, hemoglobin of 8.7, platelet count of 249. ProBNP level was significantly elevated at 106,000 on admission. This morning patient was undergoing her hemodialysis and patient started experiencing low blood pressure and chest tightness during dialysis. Rapid response team was called, patient was hypotensive and bradycardic. Hemodialysis was discontinued. Initially patient received of fluid bolus however she subsequently went into pulseless electrical activity requiring CPR, ACLS, multiple rounds of epinephrine and sodium bicarbonate. Time to first return of spontaneous circulation was over 40 minutes with multiple subsequent episodes of cardiac arrest, V. fib, defibrillation,lidocaine and amiodarone. Patient was emergently chest to the Plant Super[facility] where she underwent PCI and stenting of the LAD which was 80% occluded and left circumflex which was 100% occluded, patient received a total of 3 stents she was intubated and the [facility], she was transferred to the intensive care unit, for further management On 03/09/2022 patient seen in follow-up in the intensive care unit, she remains sedated, and intubated on assist control with a rate of 22, tidal on his 400, FiO2 of 40% and PEEP of 5. This am Shows pO2 of 249, pCO2 of 32, and pH of 7.57. Today's chest x-ray shows cardiomegaly with pulmonary vascular congestion, similar to the prior exam, and a G-tube with the side port terminating near the GE junction, with a recommendation of advancing the NG tube 7 cm for optimal placement. Patient is on Brovana 75 mics per kilo per minute, point normal sitting at a rate of 20 ML per hour, norepinephrine is at 0.08 mics per kilo per minutes or 5.8 mics per minute, heparin infusion at weight-based protocol. Patient has Impella device still in place at peak 9, 3.5 L/m area. Patient is in sinus mechanism slightly tachycardic with a rate of 1:15 BPM. Patient developed some oozing and bleeding from the left groin Impella insertion device site last night, currently on aspirin and Effient. Manual pressure has been held however patient continued to lose from the puncture site, there is no hematoma, currently there is a FemoStop in place, and the bleeding is controlle d. Minimal vasopressor support only at 5.8 mics per minute. Today's labs have been reviewed, hemoglobin is down 5.9 from 7.1 on last night set of labs, white blood cell count is 13.4, platelet count was 217. INR is 1.6, and fibrinogen level was 298. Electrolytes were within normal limits, potassium 3.9, BUN is 44, creatinine is 4.6. Nephrology is following. AST was 261, ALT is 73, alkaline phosphatase is 53, LDH is 2778. Patient is sedated, slightly restless, she does move her lower extremities, does not open eyes to voice. Patient's family informed the staff that patient is a Jehovah's witnesses and she is not to receive any blood products. Nephrology has been consulted, patient will be given iron infusion, she is already on Aranesp every 7 days, has received a dose of DDAVP. Patient is a neurectomy, yesterday she did receive hemodialysis treatment in the morning with subsequent deterioration in her clinical status and cardiac arrest. Per nursing staff hemodialysis was not resumed last night. Will await further recommendations from nephrology, bicarb infusion has been d iscontinued, recovered to concentrate on today's labs is 29 Objective - Vital Signs Vital signs: Vital Signs Temp 98.8 F 03/09/22 08:00 Pulse 114 H 03/09/22 09:00 Resp 19 03/09/22 09:00 BP 117/88 03/09/22 09:00 Pulse Ox 91 L 03/09/22 09:00 FiO2 35 03/09/22 08:00 Intake & Output 03/08/22 03/09/22 03/09/22 18:59 06:59 18:59 Intake Total 2246.863 641.802 239.219 Output Total 0 0 Balance 2246.863 641.802 239.219 Weight 67.5 kg Intake: IV 1177 274 69 0.9@20mls/hr 220 60 Potassium Chloride 20 meq 200 In Water For Injection 1 100ml.bag @ 50 mls/hr IVPB Q2H [facility] Rx#: [id number] pressure bag 54 9 Intake, IV Titration 69.863 367.802 170.219 Amount Heparin Sod,Pork in 0.45% 43.045 NaCl 25,000 unit In 0.45 % NaCl 1 250ml.bag @ 12 UNITS/KG/HR 7.076 mls/hr IV .Q24H [facility] Rx#: [id number] Heparin Sod,Pork in 0.45% 8.845 62.534 0 NaCl 25,000 unit In 0.45 % NaCl 1 250ml.bag @ 12 UNITS/KG/HR 7.076 mls/hr IV .Q24H [facility] Rx#: [id number] Norepinephrine 4 mg In 17.973 111.806 75.636 Sodium Chloride 0.9% 250 ml @ 0.05 MCG/KG/MIN 11. 233 mls/hr IV .[id number] [facility] Rx#:[id number] propofoL 1,000 mg In 193.462 94.583 Empty Bag 1 bag @ 5 MCG/ KG/MIN 1.769 mls/hr IV . Q24H [facility] Rx#:[id number] Hemodialysis 1000 Output: Urine 0 0 Other: # Bowel Movements 1 ABP, PAP, CO, CI - Last Documented Arterial Blood Pressure 106/79 - Exam GENERAL EXAM: Sedated, intubated, 47-year-old female on assist control mode of ventilation, with FiO2 35percent and PEEP of 5 comfortable in no apparent distress. HEAD: Normocephalic/atraumatic. EYES: Normal reaction of pupils, equal size. Conjunctiva pink, sclera white. NOSE: Clear with pink turbinates. THROAT: No erythema or exudates. NECK: No masses, no JVD, no thyroid enlargement, no adenopathy. CHEST: No chest wall deformity. Symmetrical expansion. LUNGS: Equal air entry with no crackles, wheeze, rhonchi or dullness. CVS: Regular rate and rhythm, normal S1 and S2, no gallops, no murmurs, no rubs ABDOMEN: Soft, nontender. No hepatosplenomegaly, normal bowel sounds, no guarding or rigidity. EXTREMITIES: No clubbing, no edema, no cyanosis, 2+ pulses and upper and lower extremities. Left groin Impella device insertion site with Femostop in place MUSCULOSKELETAL: Muscle strength and tone normal. SPINE: No scoliosis or deformity SKIN: No rashes CENTRAL NERVOUS SYSTEM: Sedated and intubated No focal deficits, tone is normal in all 4 extremities. - Labs CBC & Chem 7: 03/09/22 05:46 03/09/22 05:46 Labs: Abnormal Lab Results - Last 24 Hours (Table) 03/08/22 03/08/22 03/08/22 Range/Units 11:30 11:56 14:14 WBC (3.8-10.6) k/uL RBC (3.80-5.40) m/uL Hgb (11.4-16.0) gm/dL Hct (34.0-46.0) % MCHC (31.0-37.0) g/dL RDW (11.5-15.5) % Neutrophils # (1.3-7.7) k/uL Lymphocytes # (1.0-4.8) k/uL PT (9.0-12.0) sec INR (<1.2) APTT (22.0-30.0) sec ABG pH 7.29 L (7.35-7.45) ABG pCO2 49 H (35-45) mmHg ABG pO2 351 H (83-108) mmHg ABG HCO3 (21-25) mmol/L ABG Total CO2 25 H (19-24) mmol/L ABG O2 Saturation 99.8 H (94-97) % ABG Lactic Acid (0.5-1.6) mmol/L Potassium (3.5-5.1) mmol/L BUN (7-17) mg/dL Creatinine (0.52-1.04) mg/dL Glucose (74-99) mg/dL POC Glucose (mg/dL) 114 H (70-110) mg/dL Plasma Lactic Acid Mic (0.7-2.0) mmol/L Calcium (8.4-10.2) mg/dL Total Bilirubin (0.2-1.3) mg/dL Delta Bilirubin (0.0-0.2) mg/dL AST (14-36) U/L ALT (4-34) U/L Lactate Dehydrogenase (313-618) U/L Troponin I 1.020 H* (0.000-0.034) ng/mL Total Protein (6.3-8.2) g/dL Albumin (3.5-5.0) g/dL Crossmatch 03/08/22 03/08/22 03/08/22 Range/Units 14:59 14:59 14:59 WBC 16.2 H (3.8-10.6) k/uL RBC 3.37 L (3.80-5.40) m/uL Hgb 8.7 L (11.4-16.0) gm/dL Hct 29.9 L (34.0-46.0) % MCHC 29.1 L (31.0-37.0) g/dL RDW 20.0 H (11.5-15.5) % Neutrophils # 14.9 H (1.3-7.7) k/uL Lymphocytes # 0.9 L (1.0-4.8) k/uL PT (9.0-12.0) sec INR (<1.2) APTT (22.0-30.0) sec ABG pH (7.35-7.45) ABG pCO2 (35-45) mmHg ABG pO2 (83-108) mmHg ABG HCO3 (21-25) mmol/L ABG Total CO2 (19-24) mmol/L ABG O2 Saturation (94-97) % ABG Lactic Acid (0.5-1.6) mmol/L Potassium 3.4 L (3.5-5.1) mmol/L BUN 25 H (7-17) mg/dL Creatinine 3.84 H (0.52-1.04) mg/dL Glucose 240 H (74-99) mg/dL POC Glucose (mg/dL) (70-110) mg/dL Plasma Lactic Acid Mic 10.1 H* (0.7-2.0) mmol/L Calcium 7.8 L (8.4-10.2) mg/dL Total Bilirubin (0.2-1.3) mg/dL Delta Bilirubin 0.6 H (0.0-0.2) mg/dL AST 298 H (14-36) U/L ALT 116 H (4-34) U/L Lactate Dehydrogenase (313-618) U/L Troponin I (0.000-0.034) ng/mL Total Protein 5.5 L (6.3-8.2) g/dL Albumin 2.8 L (3.5-5.0) g/dL Crossmatch 03/08/22 03/08/22 03/08/22 Range/Units 14:59 15:44 16:15 WBC (3.8-10.6) k/uL RBC (3.80-5.40) m/uL Hgb (11.4-16.0) gm/dL Hct (34.0-46.0) % MCHC (31.0-37.0) g/dL RDW (11.5-15.5) % Neutrophils # (1.3-7.7) k/uL Lymphocytes # (1.0-4.8) k/uL PT 16.5 H (9.0-12.0) sec INR 1.6 H (<1.2) APTT 104.9 H* (22.0-30.0) sec ABG pH (7.35-7.45) ABG pCO2 (35-45) mmHg ABG pO2 (83-108) mmHg ABG HCO3 (21-25) mmol/L ABG Total CO2 (19-24) mmol/L ABG O2 Saturation (94-97) % ABG Lactic Acid 8.7 H* (0.5-1.6) mmol/L Potassium (3.5-5.1) mmol/L BUN (7-17) mg/dL Creatinine (0.52-1.04) mg/dL Glucose (74-99) mg/dL POC Glucose (mg/dL) (70-110) mg/dL Plasma Lactic Acid Mic (0.7-2.0) mmol/L Calcium (8.4-10.2) mg/dL Total Bilirubin (0.2-1.3) mg/dL Delta Bilirubin (0.0-0.2) mg/dL AST (14-36) U/L ALT (4-34) U/L Lactate Dehydrogenase (313-618) U/L Troponin I 2.260 H* (0.000-0.034) ng/mL Total Protein (6.3-8.2) g/dL Albumin (3.5-5.0) g/dL Crossmatch 03/08/22 03/08/22 03/08/22 Range/Units 16:51 18:22 18:22 WBC (3.8-10.6) k/uL RBC (3.80-5.40) m/uL Hgb (11.4-16.0) gm/dL Hct (34.0-46.0) % MCHC (31.0-37.0) g/dL RDW (11.5-15.5) % Neutrophils # (1.3-7.7) k/uL Lymphocytes # (1.0-4.8) k/uL PT (9.0-12.0) sec INR (<1.2) APTT (22.0-30.0) sec ABG pH (7.35-7.45) ABG pCO2 (35-45) mmHg ABG pO2 65 L (83-108) mmHg ABG HCO3 26 H (21-25) mmol/L ABG Total CO2 28 H (19-24) mmol/L ABG O2 Saturation 91.2 L (94-97) % ABG Lactic Acid (0.5-1.6) mmol/L Potassium (3.5-5.1) mmol/L BUN (7-17) mg/dL Creatinine (0.52-1.04) mg/dL Glucose (74-99) mg/dL POC Glucose (mg/dL) (70-110) mg/dL Plasma Lactic Acid Mic 4.4 H* (0.7-2.0) mmol/L Calcium (8.4-10.2) mg/dL Total Bilirubin (0.2-1.3) mg/dL Delta Bilirubin (0.0-0.2) mg/dL AST (14-36) U/L ALT (4-34) U/L Lactate Dehydrogenase 2167 H (313-618) U/L Troponin I (0.000-0.034) ng/mL Total Protein (6.3-8.2) g/dL Albumin (3.5-5.0) g/dL Crossmatch 03/08/22 03/08/22 03/08/22 Range/Units 18:59 22:30 22:30 WBC (3.8-10.6) k/uL RBC (3.80-5.40) m/uL Hgb (11.4-16.0) gm/dL Hct (34.0-46.0) % MCHC (31.0-37.0) g/dL RDW (11.5-15.5) % Neutrophils # (1.3-7.7) k/uL Lymphocytes # (1.0-4.8) k/uL PT (9.0-12.0) sec INR (<1.2) APTT 55.4 H (22.0-30.0) sec ABG pH (7.35-7.45) ABG pCO2 (35-45) mmHg ABG pO2 (83-108) mmHg ABG HCO3 (21-25) mmol/L ABG Total CO2 (19-24) mmol/L ABG O2 Saturation (94-97) % ABG Lactic Acid (0.5-1.6) mmol/L Potassium (3.5-5.1) mmol/L BUN (7-17) mg/dL Creatinine (0.52-1.04) mg/dL Glucose (74-99) mg/dL POC Glucose (mg/dL) 219 H (70-110) mg/dL Plasma Lactic Acid Mic (0.7-2.0) mmol/L Calcium (8.4-10.2) mg/dL Total Bilirubin (0.2-1.3) mg/dL Delta Bilirubin (0.0-0.2) mg/dL AST (14-36) U/L ALT (4-34) U/L Lactate Dehydrogenase 2463 H (313-618) U/L Troponin I (0.000-0.034) ng/mL Total Protein (6.3-8.2) g/dL Albumin (3.5-5.0) g/dL Crossmatch 03/08/22 03/08/2203/08/22 Range/Units 22:30 23:45 23:56 WBC 12.6 H (3.8-10.6) k/uL RBC 2.65 L (3.80-5.40) m/uL Hgb 7.1 L D (11.4-16.0) gm/dL Hct 22.5 L (34.0-46.0) % MCHC (31.0-37.0) g/dL RDW 20.2 H (11.5-15.5) % Neutrophils # (1.3-7.7) k/uL Lymphocytes # (1.0-4.8) k/uL PT 16.2 H (9.0-12.0) sec INR 1.6 H (<1.2) APTT (22.0-30.0) sec ABG pH (7.35-7.45) ABG pCO2 (35-45) mmHg ABG pO2 (83-108) mmHg ABG HCO3 (21-25) mmol/L ABG Total CO2 (19-24) mmol/L ABG O2 Saturation (94-97) % ABG Lactic Acid 3.6 H* (0.5-1.6) mmol/L Potassium (3.5-5.1) mmol/L BUN (7-17) mg/dL Creatinine (0.52-1.04) mg/dL Glucose (74-99) mg/dL POC Glucose (mg/dL) (70-110) mg/dL Plasma Lactic Acid Mic (0.7-2.0) mmol/L Calcium (8.4-10.2) mg/dL Total Bilirubin (0.2-1.3) mg/dL Delta Bilirubin (0.0-0.2) mg/dL AST (14-36) U/L ALT (4-34) U/L Lactate Dehydrogenase (313-618) U/L Troponin I (0.000-0.034) ng/mL Total Protein (6.3-8.2) g/dL Albumin (3.5-5.0) g/dL Crossmatch 03/09/22 03/09/22 03/09/22 Range/Units 00:09 02:30 02:30 WBC (3.8-10.6) k/uL RBC (3.80-5.40) m/uL Hgb (11.4-16.0) gm/dL Hct (34.0-46.0) % MCHC (31.0-37.0) g/dL RDW (11.5-15.5) % Neutrophils # (1.3-7.7) k/uL Lymphocytes # (1.0-4.8) k/uL PT (9.0-12.0) sec INR (<1.2) APTT (22.0-30.0) sec ABG pH (7.35-7.45) ABG pCO2 (35-45) mmHg ABG pO2 (83-108) mmHg ABG HCO3 (21-25) mmol/L ABG Total CO2 (19-24) mmol/L ABG O2 Saturation (94-97) % ABG Lactic Acid 1.9 H (0.5-1.6) mmol/L Potassium (3.5-5.1) mmol/L BUN (7-17) mg/dL Creatinine (0.52-1.04) mg/dL Glucose (74-99) mg/dL POC Glucose (mg/dL) (70-110) mg/dL Plasma Lactic Acid Mic (0.7-2.0) mmol/L Calcium (8.4-10.2) mg/dL Total Bilirubin (0.2-1.3) mg/dL Delta Bilirubin (0.0-0.2) mg/dL AST (14-36) U/L ALT (4-34) U/L Lactate Dehydrogenase 2734 H (313-618) U/L Troponin I (0.000-0.034) ng/mL Total Protein (6.3-8.2) g/dL Albumin (3.5-5.0) g/dL Crossmatch See Detail 03/09/22 03/09/22 03/09/22 Range/Units 05:46 05:46 05:46 WBC 13.4 H (3.8-10.6) k/uL RBC 2.28 L (3.80-5.40) m/uL Hgb 5.9 L* (11.4-16.0) gm/dL Hct 19.0 L* (34.0-46.0) % MCHC 30.9 L (31.0-37.0) g/dL RDW 20.6 H (11.5-15.5) % Neutrophils # 10.7 H (1.3-7.7) k/uL Lymphocytes # (1.0-4.8) k/uL PT 16.6 H (9.0-12.0) sec INR 1.6 H (<1.2) APTT 54.1 H (22.0-30.0) sec ABG pH (7.35-7.45) ABG pCO2 (35-45) mmHg ABG pO2 (83-108) mmHg ABG HCO3 (21-25) mmol/L ABG Total CO2 (19-24) mmol/L ABG O2 Saturation (94-97) % ABG Lactic Acid (0.5-1.6) mmol/L Potassium (3.5-5.1) mmol/L BUN 44 H (7-17) mg/dL Creatinine 4.61 H (0.52-1.04) mg/dL Glucose 182 H (74-99) mg/dL POC Glucose (mg/dL) (70-110) mg/dL Plasma Lactic Acid Mic (0.7-2.0) mmol/L Calcium 7.5 L (8.4-10.2) mg/dL Total Bilirubin 2.0 H (0.2-1.3) mg/dL Delta Bilirubin (0.0-0.2) mg/dL AST 261 H (14-36) U/L ALT 73 H (4-34) U/L Lactate Dehydrogenase 2778 H (313-618) U/L Troponin I (0.000-0.034) ng/mL Total Protein 4.9 L (6.3-8.2) g/dL Albumin 2.4 L (3.5-5.0) g/dL Crossmatch 03/09/22 03/09/22 03/09/22 Range/Units 05:46 05:46 05:47 WBC (3.8-10.6) k/uL RBC (3.80-5.40) m/uL Hgb (11.4-16.0) gm/dL Hct (34.0-46.0) % MCHC (31.0-37.0) g/dL RDW (11.5-15.5) % Neutrophils # (1.3-7.7) k/uL Lymphocytes # (1.0-4.8) k/uL PT (9.0-12.0) sec INR (<1.2) APTT (22.0-30.0) sec ABG pH 7.57 H* (7.35-7.45) ABG pCO2 32 L (35-45) mmHg ABG pO2 249 H (83-108) mmHg ABG HCO3 29 H (21-25) mmol/L ABG Total CO2 30 H (19-24) mmol/L ABG O2 Saturation 100.0 H (94-97) % ABG Lactic Acid 2.0 H (0.5-1.6) mmol/L Potassium (3.5-5.1) mmol/L BUN (7-17) mg/dL Creatinine (0.52-1.04) mg/dL Glucose (74-99) mg/dL POC Glucose (mg/dL) 233 H (70-110) mg/dL Plasma Lactic Acid Mic (0.7-2.0) mmol/L Calcium (8.4-10.2) mg/dL Total Bilirubin (0.2-1.3) mg/dL Delta Bilirubin (0.0-0.2) mg/dL AST (14-36) U/L ALT (4-34) U/L Lactate Dehydrogenase (313-618) U/L Troponin I (0.000-0.034) ng/mL Total Protein (6.3-8.2) g/dL Albumin (3.5-5.0) g/dL Crossmatch Assessment and Plan Plan: Assessment: #1. Acute cardiac arrest, related to acute non-ST elevated myocardial infarction, patient suffered multiple episodes of cardiac arrest, requiring CPR and ACLS protocol with return of spontaneous circulation #2. Acute coronary syndrome, status post emergent heart catheterization and PCI and stenting of the LAD and left circumflex with Impella support #3. Acute cardiogenic shock related to acute non-ST elevated myocardial infarction, status post Impella device support and vasopressors #4. Acute hypoxic respiratory failure related to the above, requiring intubation and mechanical ventilator support #5. Acute blood loss anemia, patient has developed bleeding from the left groin Impella insertion site, currently the bleeding is controlled with Femostop, patient is a Christian, cannot accept blood products #6. End-stage renal disease on hemodialysis #7. Hypertension #8. Dyslipidemia #9. Diabetes mellitus type 2 #10. Previous history of coronary artery disease with PCI and stenting and previous MIs #11. Ischemic cardiomyopathy Plan: Continue ventilator support We'll drop the before meals rate down to 18, FiO2 down to 35 We will advance the NG tube That his blood work has been noted, hemoglobin is down to 5.9, patient is on small dose of norepinephrine Left groin bleeding is controlled with FemoStop Repeat hemoglobin is 1600 along with electrolytes and renal profile Patient cannot accept blood products related to her zoroastrianism (Christian) She received DDAVP, iron transfusion, and Aranesp We'll continue to monitor her hemodynamics, recurrence of bleeding Cardiology and nephrology recommendations Continues on Impella support Continues on aspirin and Effient and heparin infusion Hold sedation holiday today No spontaneous breathing trials Follow-up blood work, ABG and chest x-ray in the morning We'll continue to follow I have personally seen and examined the patient, performed the documentation and the assessment and plan as written. Number of minutes spent on the visit: [15] Time with Patient: Greater than 30
[2022-03-09 11:35] LABS: Glucose,Whole Blood 220 mg/dL (70-110)
[2022-03-09] MEDS ORDERED: DARBEPOETIN ALFA 100MCG/0.5ML SYRINGE SQ SCH (12:00)
[2022-03-09] MEDS: NOREPINEPHRINE 4 MG in SODIUM CHLORIDE 0.9% 250 ML IV SCH (12:19)
--- NOTE | 2022-03-09 13:12 | PN ---
PROGRESS NOTE SUBJECTIVE: Patient is seen for followup for end-stage renal disease. Patient is seen in the ICU. She is currently sedated and on the vent. The patient had multiple episodes of cardiac arrest yesterday. She is status post cardiac catheterization and stenting of the LAD and the left circumflex. The patient also had placement of Impella in the left ventricle. The patient has had bleeding from her site for cardiac catheterization. 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 The bleeding seems to have slowed down. Levophed is being weaned down. PHYSICAL EXAMINATION: GENERAL: Patient is sedated. VITAL SIGNS: Blood pressure this morning when patient was seen was 114/88, heart rate 115 per minute, she is afebrile. HEART: S1, S2. LUNGS: Bilateral breath sounds are heard. The patient is on the vent. ABDOMEN: Soft. EXTREMITIES: Examination of lower extremities shows no significant edema. Left femoral FemoStop noted with hematoma. LIFE SCIENCES TEACHER: Cannot be performed. LABORATORY DATA: Labs show hemoglobin 5.9. Sodium 137, potassium 3.9. ASSESSMENT: 1. End-stage renal disease, on hemodialysis. The patient was maintained on home hemodialysis prior to admission. 2. Status post cardiac arrest multiple times. 3. Status post acute coronary event, status post stenting of left anterior descending artery and circumflex. 4. Cardiogenic shock. 5. Acute blood loss anemia. PLAN: 1. DDAVP x1. 2. Increase dose of Aranesp. 3. I will hold off on hemodialysis as patient is currently unstable. OVERALL PROGNOSIS: Guarded. MMODL / IJN: [id number] /
[2022-03-09] MEDS: EPINEPHrine 4 MG in DEXTROSE 5% IN WATER 250 ML IV SCH ×2 (15:08)
[2022-03-09] MEDS: HEPARIN SODIUM,PORCINE 12,500 UNIT in DEXTROSE 5% IN WATER 500 ML IV SCH ×2 (15:30)
[2022-03-09 16:55] LABS: Anisocytosis Moderate; Hypochromasia Marked; MCH 27.1 pg (25.0-35.0); MCHC 31.3 g/dL (31.0-37.0); MCV 86.5 fL (80.0-100.0); Microcytosis Slight; Platelet Count 213 k/uL (150-450); RBC 1.75 m/uL (3.80-5.40); RDW 21.9 % (11.5-15.5)
[2022-03-09 17:03] LABS: HGB 4.8 gm/dL (11.4-16.0)
[2022-03-09 17:04] LABS: HCT 15.2 % (34.0-46.0)
[2022-03-09 17:06] LABS: INR 1.6 (<1.2); Partial Thromboplastin Time 70.8 sec (22.0-30.0); Prothrombin Time 16.3 sec (9.0-12.0)
[2022-03-09 17:45] LABS: Band Neutrophils % 4 %
[2022-03-09 17:47] LABS: Lymphocytes # (M) 2.54 k/uL (1.0-4.8); Monocytes # (M) 0.59 k/uL (0-1.0); Neutrophils % (M) 80 %; Nucleated Red Blood Cells 7 /100 WBC (0-0); Total Cells Counted 93; WBC 19.5 k/uL (3.8-10.6)
[2022-03-09 18:34] LABS: Calcium 7.5 mg/dL (8.4-10.2); Total Bilirubin 2.4 mg/dL (0.2-1.3)
[2022-03-09 18:38] LABS: Albumin 2.4 g/dL (3.5-5.0); Potassium 4.1 mmol/L (3.5-5.1); Total Protein 4.9 g/dL (6.3-8.2)
[2022-03-09 18:39] LABS: Glucose,Whole Blood 219 mg/dL (70-110)
[2022-03-09] MEDS: GABAPENTIN 400 MG CAP PO SCH (21:50)
[2022-03-09] MEDS: ATORVASTATIN 80 MG TAB PO SCH (21:50)
[2022-03-09 23:27] LABS: Partial Thromboplastin Time 44.8 sec (22.0-30.0)
[2022-03-10 00:53] LABS: Glucose,Whole Blood 225 mg/dL (70-110)
[2022-03-10] MEDS: INSULIN ASPART (NovoLOG) 100 UNIT/ML VIAL SQ SCH ×3 (00:57→12:57)
[2022-03-10] MEDS: NOREPINEPHRINE 4 MG in SODIUM CHLORIDE 0.9% 250 ML IV SCH ×2 (01:22→09:05)
[2022-03-10] MEDS: IPRATROPIUM-ALBUTEROL 3 ML NEB INHALATION SCH ×4 (03:40→15:39)
[2022-03-10] MEDS: SODIUM FERRIC GLUCONAT-SUCROSE 125 MG in SODIUM CHLORIDE 0.9% 100 ML IVPB SCH (04:25)
[2022-03-10] MEDS: HEPARIN SOD,PORK IN 0.45% NACL 25,000 UNIT in 0.45% NACL 1 250ML.BAG IV SCH ×2 (04:33→15:41)
[2022-03-10 05:48] LABS: Glucose,Whole Blood 200 mg/dL (70-110)
[2022-03-10 05:50] LABS: ABG Base Excess 3.4 mmol/L; ABG HCO3 26 mmol/L (21-25); ABG PCO2 31 mmHg (35-45); ABG PH 7.53 (7.35-7.45); ABG PO2 162 mmHg (83-108); ABG TCO2 27 mmol/L (19-24)
[2022-03-10 05:53] LABS: Allen Test Performed? No
[2022-03-10 05:57] LABS: Anisocytosis Moderate; Hypochromasia Marked; MCH 28.1 pg (25.0-35.0); MCHC 33.2 g/dL (31.0-37.0); MCV 84.7 fL (80.0-100.0); Mean Platelet Volume 7.3; Microcytosis Slight; Platelet Count 153 k/uL (150-450); RDW 23.7 % (11.5-15.5)
--- NOTE | 2022-03-10 06:22 | P.PN ---
Subjective Progress Note Date: 03/09/22 47-year-old woman with medical history of end-stage renal disease as well as coronary artery disease status post stents in the past presented for chest pain. Patient's hospital course was complicated by two code blues earlier in the day, and subsequently was transferred to the Pathology Tech for further intervention. I was called to bedside for another CODE BLUE during Pathology Tech intervention. By the time my arrival, patient had return of spontaneous circulation, received 1 g of calcium chloride as well as an additional amp of bicarb, however, later developed V. tach, received one attempt at defibrillation as well as load of amiodarone and lidocaine. Patient then lost her pulse again requiring additi onal epinephrine as well as bicarb. We were able to regain her pulse again, and she was started on an epinephrine drip as well as low-dose bicarb drip. Patient's intervention required multiple stents, balloon angioplasty, and Impella placement (see intervention note for more details). After Impala and initial stent placement patient was following commands but was gagging on the ventilator and appeared to be in distress. Therefore, she received 1 mg of Versed and 50 g of fentanyl. However, during the latter half of the intervention it was felt that he would be better to reverse her sedation while in the Pathology Tech given her significant hemodynamic fluctuations. Therefore, she was given a dose of flumazenil as well as 2 doses of Narcan. Patient's intervention course was also complicated by bradycardia as low as mid 30s, this improved with multiple rounds of atropine as well as dopamine drip. After full revascularization of the left coronary system, patient's heart function signifi cantly improved, her heart rate turned into atrial fibrillation and peaked in the 150s to 160s. At this point dopamine was stopped, epinephrine was down titrated. By the time she was ready to be transferred back to the intensive care unit patient was again interactive and following commands, moving all extremities. I also reevaluate her in the ICU after her intervention, she appeared agitated, but moving all extremities, following commands. She is placed on propofol at 40, same vent settings, 1 mg every hour when necessary of Dilaudid. Initially, she required 4 point restraints, but this improved. She did appear to have dopplerable pulses in all extremities. Her pressures were good, epinephrine discontinued, remained on Levophed alone. She was hypothermic. Postintervention chest x-ray demonstrates pulmonary edema, diffusely consistent with heart failure. Postintervention ABG shows a pH of 7.29, pCO2 of 49, pO2 of 315. Postintervention lactate was 10.1, postintervention troponin was 2.1. Case was discussed with interventional list as well as ICU physician. 03/09/2022 Resuming care of this patient from [facility] as patient initially was admitted under observation status and has been made inpatient Patient is seen and evaluated in the ICU continues to be on mechanical vent with an FiO2 of 35% and PEEP is 5. Patient is status post cardiac arrest multiple ti mes yesterday. Patient is status post cardiac catheterization with Dr. Schaeffer and underwent stenting of the left anterior descending artery along with the left circumflex coronary artery and placement of Impella in the left ventricle. Patient continues with fem stop of the left groin area status post cardiac catheterization and per nursing staff attempted to remove this and experienced continuous bleeding and was instructed by cardiology to continue with the feb stop for now. Hemoglobin is 5.9 and intensive is recommending repeat labs and patient is continued on hemodialysis with nephrology following closely. No plan for dialysis today as patient is unstable. Patient is jehovah witness and do not agree with blood products. Prognosis is definitely guarded. Review of systems: Unable to obtain as patient is intubated All medications have been reviewed Active Medications Al Hydroxide/Mg Hydroxide (Mag Hydrox/Al Hydrox/Simeth 30 Ml Cup) 30 ml PO Q4HR PRN PRN Reason: Heartburn Albuterol Sulfate (Albuterol Nebulized 2.5 Mg/3 Ml) 2.5 mg INHALATION RT-QID PRN PRN Reason: Shortness Of Breath Last Admin: 03/07/22 20:09 Dose: 2.5 mg Albuterol/Ipratropium (Ipratropium-Albuterol 3 Ml Neb) 3 ml INHALATION RT-Q4H [facility]O Last Admin: 03/09/22 15:04 Dose: 3 ml Aspirin (Aspirin 81 Mg) 81 mg PO DAILY [facility]O Last Admin: 03/09/22 10:34 Dose: 81 mg Atorvastatin Calcium (Atorvastatin 80 Mg Tab) 80 mg PO HS [facility]O Last Admin: 03/08/22 21:51 Dose: 80 mg Atropine Sulfate (Atropine Sulfate 0.1 Mg/Ml 10ml Syringe) 0.5 mg IV ONCE PRN PRN Reason: Symptomatic Bradycardia Calcitriol (Calcitriol 0.25 Mcg Cap) 1 mcg PO DAILY [facility] Last Admin: 03/09/22 10:24 Dose: Not Given Calcium Acetate (Calcium Acetate 667 Mg Tab) 1,334 mg PO TID-W/MEALS [facility] Last Admin: 03/09/22 12:19 Dose: Not Given Chlorhexidine Gluconate (Chlorhexidine Gluconate 15 Ml Cup) 15 ml MUCOUS MEM BID [facility] Last Admin: 03/09/22 10:35 Dose: 15 ml Cinacalcet (Cinacalcet 30 Mg Tab) 90 mg PO [id number] [facility] Last Admin: 03/08/22 08:51 Dose: 90 mg Cyclobenzaprine HCl (Cyclobenzaprine 10 Mg Tab) 10 mg PO TID PRN PRN Reason: Muscle Spasm Last Admin: 03/07/22 22:48 Dose: 10 mg Darbepoetin Tigre (Darbepoetin Tigre 100mcg/0.5ml Syringe) 100 mcg SQ Q7D [facility] Last Admin: 03/09/22 12:18 Dose: 100 mcg Gabapentin (Gabapentin 400 Mg Cap) 400 mg PO HS [facility] Last Admin: 03/08/22 21:51 Dose: 400 mg Gabapentin (Gabapentin 100 Mg Cap) 200 mg PO DAILY@1200 [facility] Last Admin: 03/09/22 10:34 Dose: 200 mg Heparin Sodium (Porcine) (Heparin Sodium 1,000 Un/Ml (10ml Vl)) 0 unit IV PER PROTOCOL PRN; Protocol PRN Reason: Low PTT Hydromorphone HCl (Hydromorphone 1 Mg/Ml 1 Ml Syringe) 1 mg IVP Q1H PRN PRN Reason: Pain Last Admin: 03/08/22 15:24 Dose: 1 mg Heparin Sodium (Porcine) 10, (000 unit/ Sodium Chloride) 1,001 mls @ 999 mls/hr IRRIGATION ONCE PRN PRN Reason: INTRA-OP Stop: 03/09/22 23:00 Heparin Sodium (Porcine) 2,500 (unit/ Sodium Chloride) 250.5 mls @ 250 mls/hr IRRIGATION ONCE PRN PRN Reason: INTRA-OP Stop: 03/09/22 23:00 Epinephrine HCl 4 mg/ Dextrose (/Water) 250 mls @ 2.211 mls/hr IV .Q24H [facility]; Protocol Last Admin: 03/08/22 13:19 Dose: 23 mls Norepinephrine Bitartrate 4 mg (/ Sodium Chloride) 254 mls @ 11.233 mls/hr IV .[id number] [facility]; Protocol Last Admin: 03/09/22 12:19 Dose: 0.08 mcg/kg/min, 17.973 mls/hr Heparin Sodium/Sodium Chloride (25,000 unit/ Sodium Chloride) 250 mls @ 7.076 mls/hr IV .Q24H [facility]; Protocol Last Titration: 03/09/22 08:47 Dose: 8.99 units/kg/hr, 5.3 mls/hr Heparin Sodium (Porcine) 12, (500 unit/ Dextrose/Water) 501.25 mls @ 0 mls/hr IV DIRECTED [facility]; Protocol Last Admin: 03/08/22 21:14 Dose: Not Given Propofol 1,000 mg/ IV Solution 100 mls @ 1.769 mls/hr IV .Q24H [facility]; Protocol Last Titration: 03/09/22 14:50 Dose: Infused Ferric Sodium Gluconate 125 mg (/ Sodium Chloride) 110 mls @ 100 mls/hr IVPB DAILY [facility] Last Admin: 03/09/22 10:34 Dose: 100 mls/hr Insulin Aspart (Insulin Aspart (Novolog) 100 Unit/Ml Vial) 0 unit SQ Q6HR [facility]; Protocol Last Admin: 03/09/22 12:18 Dose: 2 unit Midodrine (Midodrine 5 Mg Tab) 5 mg PO ONCE PRN PRN Reason: Hypotension Last Admin: 03/08/22 10:42 Dose: 5 mg Midodrine (Midodrine 5 Mg Tab) 5 mg PO AC-TID [facility] Last Admin: 03/09/22 12:19 Dose: Not Given Miscellaneous Information (Rx Info: Iv Contrast Was Given 1 Each Misc) 1 each MISCELLANE DAILY PRN PRN Reason: Per Protocol Stop: 03/10/22 14:10 Pantoprazole Sodium (Pantoprazole 40 Mg/10 Ml Vial) 40 mg IVP DAILY [facility] Last Admin: 03/09/22 10:34 Dose: 40 mg Prasugrel (Prasugrel 10 Mg Tab) 10 mg PO DAILY [facility] Last Admin: 03/09/22 10:34 Dose: 10 mg Ropinirole HCl (Ropinirole Hcl 1 Mg Tab) 1 mg PO BID [facility] Last Admin: 03/09/22 11:26 Dose: 1 mg Ropinirole HCl (Ropinirole Hcl 0.25 Mg Tab) 0.25 mg PO BID [facility] Last Admin: 03/09/22 11:26 Dose: 0.25 mg Sodium Chloride (Sodium Chloride 0.9% Flush 10 Ml Syringe) 10 ml IV BID [facility] Last Admin: 03/09/22 10:35 Dose: 10 ml PHYSICAL EXAMINATION: GENERAL: The patient is intubated and sedated, Well developed, well nourished. HEENT: Pupils are round and equally reacting to light. EOMI. no scleral icterus. No conjunctival pallor. Normocephalic, atraumatic. No pharyngeal erythema. No thyromegaly. CARDIOVASCULAR: S1 and S2 muffled PULMONARY: diminished breath sounds bilaterally with some scatterer rhonchi and crackles noted. ABDOMEN: soft. Nontender. obese. non-distended, normoactive bowel sounds. No palpable organomegaly. MUSCULOSKELETAL: No joint swelling or deformity. EXTREMITIES: No cyanosis, clubbing, or pedal edema. NEUROLOGICAL: unable to assess as patient is sedated SKIN: No rashes. Assessment: NSTEMI Status post cardiac arrest multiple times Large thrombus burden involving the distal left main and LC and LAD status post cardiac catheterization with impella and stenting to the LAD and circumflex Cardiogenic shock requiring pressor support and mechanical ventilation Known history of total occlusion of the RCA Normocytic anemia, likely due to end-stage renal disease End-stage renal disease maintained on hemodialysis at home Hypokalemia Diabetes mellitus type 2 Hypertension Hyperlipidemia GI prophylaxis DVT prophylaxis Full code Plan: Recommend to continue with current medications and management with multiple medical consultations following. Nephrology to give a dose of ddavp as hemoglobin is 5.9 and patient is a jehovah witness and does not receive blood products. Recommend close monitoring of hemoglobin and repeat labs in am. Vent is at 35% FI02 and peep of 5 with pulmonary staple side laster following as well. Overall prognosis is extremely guarded. Family members at the bedside and questions and concerns were answered. The impression and plan of care has been dictated by Sharona Johnson, nurse practitioner as directed. Dr. Kramer. I have performed a history and examination and MDM of this patient, discussed the same with the dictator, and agree with the dictator's assessment and plan as written ,documented as a scribe. Based on total visit time, I have performed more than 50% of the visit. Any additional findings or plans will be noted. Objective - Vital Signs Vital signs: Vital Signs Temp 98.8 F 03/09/22 08:00 Pulse 114 H 03/09/22 09:00 Resp 19 03/09/22 09:00 BP 117/88 03/09/22 09:00 Pulse Ox 91 L 03/09/22 09:00 FiO2 35 03/09/22 08:00 Intake & Output 03/08/22 03/09/22 03/09/22 18:59 06:59 18:59 Intake Total 2246.863 641.802 162.267 Output Total 0 0 Balance 2246.863 641.802 162.267 Weight 67.5 kg Intake: IV 1177 274 69 0.9@20mls/hr 220 60 Potassium Chloride 20 meq 200 In Water For Injection 1 100ml.bag @ 50 mls/hr IVPB Q2H [facility] Rx#: [id number] pressure bag 54 9 Intake, IV Titration 69.863 367.802 93.267 Amount Heparin Sod,Pork in 0.45% 43.045 NaCl 25,000 unit In 0.45 % NaCl 1 250ml.bag @ 12 UNITS/KG/HR 7.076 mls/hr IV .Q24H [facility] Rx#: [id number] Heparin Sod,Pork in 0.45% 8.845 62.534 0 NaCl 25,000 unit In 0.45 % NaCl 1 250ml.bag @ 12 UNITS/KG/HR 7.076 mls/hr IV .Q24H [facility] Rx#: [id number] Norepinephrine 4 mg In 17.973 111.806 75.636 Sodium Chloride 0.9% 250 ml @ 0.05 MCG/KG/MIN 11. 233 mls/hr IV .[id number] [facility] Rx#:[id number] propofoL 1,000 mg In 193.462 17.631 Empty Bag 1 bag @ 5 MCG/ KG/MIN 1.769 mls/hr IV . Q24H [facility] Rx#:[id number] Hemodialysis 1000 Output: Urine 0 0 Other: # Bowel Movements 1 ABP, PAP, CO, CI - Last Documented Arterial Blood Pressure 106/79 - Labs CBC & Chem 7: 03/09/22 16:40 03/09/22 16:40 Labs: Abnormal Lab Results - Last 24 Hours (Table) 03/08/22 03/08/22 03/08/22 Range/Units 11:30 11:56 14:14 WBC (3.8-10.6) k/uL RBC (3.80-5.40) m/uL Hgb (11.4-16.0) gm/dL Hct (34.0-46.0) % MCHC (31.0-37.0) g/dL RDW (11.5-15.5) % Neutrophils # (1.3-7.7) k/uL Lymphocytes # (1.0-4.8) k/uL PT (9.0-12.0) sec INR (<1.2) APTT (22.0-30.0) sec ABG pH 7.29 L (7.35-7.45) ABG pCO2 49 H (35-45) mmHg ABG pO2 351 H (83-108) mmHg ABG HCO3 (21-25) mmol/L ABG Total CO2 25 H (19-24) mmol/L ABG O2 Saturation 99.8 H (94-97) % ABG Lactic Acid (0.5-1.6) mmol/L Potassium (3.5-5.1) mmol/L BUN (7-17) mg/dL Creatinine (0.52-1.04) mg/dL Glucose (74-99) mg/dL POC Glucose (mg/dL) 114 H (70-110) mg/dL Plasma Lactic Acid Mic (0.7-2.0) mmol/L Calcium (8.4-10.2) mg/dL Total Bilirubin (0.2-1.3) mg/dL Delta Bilirubin (0.0-0.2) mg/dL AST (14-36) U/L ALT (4-34) U/L Lactate Dehydrogenase (313-618) U/L Troponin I 1.020 H* (0.000-0.034) ng/mL Total Protein (6.3-8.2) g/dL Albumin (3.5-5.0) g/dL Crossmatch 03/08/22 03/08/22 03/08/22 Range/Units 14:59 14:59 14:59 WBC 16.2 H (3.8-10.6) k/uL RBC 3.37 L (3.80-5.40) m/uL Hgb 8.7 L (11.4-16.0) gm/dL Hct 29.9 L (34.0-46.0) % MCHC 29.1 L (31.0-37.0) g/dL RDW 20.0 H (11.5-15.5) % Neutrophils # 14.9 H (1.3-7.7) k/uL Lymphocytes # 0.9 L (1.0-4.8) k/uL PT (9.0-12.0) sec INR (<1.2) APTT (22.0-30.0) sec ABG pH (7.35-7.45) ABG pCO2 (35-45) mmHg ABG pO2 (83-108) mmHg ABG HCO3 (21-25) mmol/L ABG Total CO2 (19-24) mmol/L ABG O2 Saturation (94-97) % ABG Lactic Acid (0.5-1.6) mmol/L Potassium 3.4 L (3.5-5.1) mmol/L BUN 25 H (7-17) mg/dL Creatinine 3.84 H (0.52-1.04) mg/dL Glucose 240 H (74-99) mg/dL POC Glucose (mg/dL) (70-110) mg/dL Plasma Lactic Acid Mic 10.1 H* (0.7-2.0) mmol/L Calcium 7.8 L (8.4-10.2) mg/dL Total Bilirubin (0.2-1.3) mg/dL Delta Bilirubin 0.6 H (0.0-0.2) mg/dL AST 298 H (14-36) U/L ALT 116 H (4-34) U/L Lactate Dehydrogenase (313-618) U/L Troponin I (0.000-0.034) ng/mL Total Protein 5.5 L (6.3-8.2) g/dL Albumin 2.8 L (3.5-5.0) g/dL Crossmatch 03/08/22 03/08/22 03/08/22 Range/Units 14:59 15:44 16:15 WBC (3.8-10.6) k/uL RBC (3.80-5.40) m/uL Hgb (11.4-16.0) gm/dL Hct (34.0-46.0) % MCHC (31.0-37.0) g/dL RDW (11.5-15.5) % Neutrophils # (1.3-7.7) k/uL Lymphocytes # (1.0-4.8) k/uL PT 16.5 H (9.0-12.0) sec INR 1.6 H (<1.2) APTT 104.9 H* (22.0-30.0) sec ABG pH (7.35-7.45) ABG pCO2 (35-45) mmHg ABG pO2 (83-108) mmHg ABG HCO3 (21-25) mmol/L ABG Total CO2 (19-24) mmol/L ABG O2 Saturation (94-97) % ABG Lactic Acid 8.7 H* (0.5-1.6) mmol/L Potassium (3.5-5.1) mmol/L BUN (7-17) mg/dL Creatinine (0.52-1.04) mg/dL Glucose (74-99) mg/dL POC Glucose (mg/dL) (70-110) mg/dL Plasma Lactic Acid Mic (0.7-2.0) mmol/L Calcium (8.4-10.2) mg/dL Total Bilirubin (0.2-1.3) mg/dL Delta Bilirubin (0.0-0.2) mg/dL AST (14-36) U/L ALT (4-34) U/L Lactate Dehydrogenase (313-618) U/L Troponin I 2.260 H* (0.000-0.034) ng/mL Total Protein (6.3-8.2) g/dL Albumin (3.5-5.0) g/dL Crossmatch 03/08/22 03/08/22 03/08/22 Range/Units 16:51 18:22 18:22 WBC (3.8-10.6) k/uL RBC (3.80-5.40) m/uL Hgb (11.4-16.0) gm/dL Hct (34.0-46.0) % MCHC (31.0-37.0) g/dL RDW (11.5-15.5) % Neutrophils # (1.3-7.7) k/uL Lymphocytes # (1.0-4.8) k/uL PT (9.0-12.0) sec INR (<1.2) APTT (22.0-30.0) sec ABG pH (7.35-7.45) ABG pCO2 (35-45) mmHg ABG pO2 65 L (83-108) mmHg ABG HCO3 26 H (21-25) mmol/L ABG Total CO2 28 H (19-24) mmol/L ABG O2 Saturation 91.2 L (94-97) % ABG Lactic Acid (0.5-1.6) mmol/L Potassium (3.5-5.1) mmol/L BUN (7-17) mg/dL Creatinine (0.52-1.04) mg/dL Glucose (74-99) mg/dL POC Glucose (mg/dL) (70-110) mg/dL Plasma Lactic Acid Mic 4.4 H* (0.7-2.0) mmol/L Calcium (8.4-10.2) mg/dL Total Bilirubin (0.2-1.3) mg/dL Delta Bilirubin (0.0-0.2) mg/dL AST (14-36) U/L ALT (4-34) U/L Lactate Dehydrogenase 2167 H (313-618) U/L Troponin I (0.000-0.034) ng/mL Total Protein (6.3-8.2) g/dL Albumin (3.5-5.0) g/dL Crossmatch 03/08/22 03/08/22 03/08/22 Range/Units 18:59 22:30 22:30 WBC (3.8-10.6) k/uL RBC (3.80-5.40) m/uL Hgb (11.4-16.0) gm/dL Hct (34.0-46.0) % MCHC (31.0-37.0) g/dL RDW (11.5-15.5) % Neutrophils # (1.3-7.7) k/uL Lymphocytes # (1.0-4.8) k/uL PT (9.0-12.0) sec INR (<1.2) APTT 55.4 H (22.0-30.0) sec ABG pH (7.35-7.45) ABG pCO2 (35-45) mmHg ABG pO2 (83-108) mmHg ABG HCO3 (21-25) mmol/L ABG Total CO2 (19-24) mmol/L ABG O2 Saturation (94-97) % ABG Lactic Acid (0.5-1.6) mmol/L Potassium (3.5-5.1) mmol/L BUN (7-17) mg/dL Creatinine (0.52-1.04) mg/dL Glucose (74-99) mg/dL POC Glucose (mg/dL) 219 H (70-110) mg/dL Plasma Lactic Acid Mic (0.7-2.0) mmol/L Calcium (8.4-10.2) mg/dL Total Bilirubin (0.2-1.3) mg/dL Delta Bilirubin (0.0-0.2) mg/dL AST (14-36) U/L ALT (4-34) U/L Lactate Dehydrogenase 2463 H (313-618) U/L Troponin I (0.000-0.034) ng/mL Total Protein (6.3-8.2) g/dL Albumin (3.5-5.0) g/dL Crossmatch 03/08/22 03/08/22 03/08/22 Range/Units 22:30 23:45 23:56 WBC 12.6 H (3.8-10.6) k/uL RBC 2.65 L (3.80-5.40) m/uL Hgb 7.1 L D (11.4-16.0) gm/dL Hct 22.5 L (34.0-46.0) % MCHC (31.0-37.0) g/dL RDW 20.2 H (11.5-15.5) % Neutrophils # (1.3-7.7) k/uL Lymphocytes # (1.0-4.8) k/uL PT 16.2 H (9.0-12.0) sec INR 1.6 H (<1.2) APTT (22.0-30.0) sec ABG pH (7.35-7.45) ABG pCO2 (35-45) mmHg ABG pO2 (83-108) mmHg ABG HCO3 (21-25) mmol/L ABG Total CO2 (19-24) mmol/L ABG O2 Saturation (94-97) % ABG Lactic Acid 3.6 H* (0.5-1.6) mmol/L Potassium (3.5-5.1) mmol/L BUN (7-17) mg/dL Creatinine (0.52-1.04) mg/dL Glucose (74-99) mg/dL POC Glucose (mg/dL) (70-110) mg/dL Plasma Lactic Acid Mic (0.7-2.0) mmol/L Calcium (8.4-10.2) mg/dL Total Bilirubin (0.2-1.3) mg/dL Delta Bilirubin (0.0-0.2) mg/dL AST (14-36) U/L ALT (4-34) U/L Lactate Dehydrogenase (313-618) U/L Troponin I (0.000-0.034) ng/mL Total Protein (6.3-8.2) g/dL Albumin (3.5-5.0) g/dL Crossmatch 03/09/22 03/09/22 03/09/22 Range/Units 00:09 02:30 02:30 WBC (3.8-10.6) k/uL RBC (3.80-5.40) m/uL Hgb (11.4-16.0) gm/dL Hct (34.0-46.0) % MCHC (31.0-37.0) g/dL RDW (11.5-15.5) % Neutrophils # (1.3-7.7) k/uL Lymphocytes # (1.0-4.8) k/uL PT (9.0-12.0) sec INR (<1.2) APTT (22.0-30.0) sec ABG pH (7.35-7.45) ABG pCO2 (35-45) mmHg ABG pO2 (83-108) mmHg ABG HCO3 (21-25) mmol/L ABG Total CO2 (19-24) mmol/L ABG O2 Saturation (94-97) % ABG Lactic Acid 1.9 H (0.5-1.6) mmol/L Potassium (3.5-5.1) mmol/L BUN (7-17) mg/dL Creatinine (0.52-1.04) mg/dL Glucose (74-99) mg/dL POC Glucose (mg/dL) (70-110) mg/dL Plasma Lactic Acid Mic (0.7-2.0) mmol/L Calcium (8.4-10.2) mg/dL Total Bilirubin (0.2-1.3) mg/dL Delta Bilirubin (0.0-0.2) mg/dL AST (14-36) U/L ALT (4-34) U/L Lactate Dehydrogenase 2734 H (313-618) U/L Troponin I (0.000-0.034) ng/mL Total Protein (6.3-8.2) g/dL Albumin (3.5-5.0) g/dL Crossmatch See Detail 03/09/22 03/09/22 03/09/22 Range/Units 05:46 05:46 05:46 WBC 13.4 H (3.8-10.6) k/uL RBC 2.28 L (3.80-5.40) m/uL Hgb 5.9 L* (11.4-16.0) gm/dL Hct 19.0 L* (34.0-46.0) % MCHC 30.9 L (31.0-37.0) g/dL RDW 20.6 H (11.5-15.5) % Neutrophils # 10.7 H (1.3-7.7) k/uL Lymphocytes # (1.0-4.8) k/uL PT 16.6 H (9.0-12.0) sec INR 1.6 H (<1.2) APTT 54.1 H (22.0-30.0) sec ABG pH (7.35-7.45) ABG pCO2 (35-45) mmHg ABG pO2 (83-108) mmHg ABG HCO3 (21-25) mmol/L ABG Total CO2 (19-24) mmol/L ABG O2 Saturation (94-97) % ABG Lactic Acid (0.5-1.6) mmol/L Potassium (3.5-5.1) mmol/L BUN 44 H (7-17) mg/dL Creatinine 4.61 H (0.52-1.04) mg/dL Glucose 182 H (74-99) mg/dL POC Glucose (mg/dL) (70-110) mg/dL Plasma Lactic Acid Mic (0.7-2.0) mmol/L Calcium 7.5 L (8.4-10.2) mg/dL Total Bilirubin 2.0 H (0.2-1.3) mg/dL Delta Bilirubin (0.0-0.2) mg/dL AST 261 H (14-36) U/L ALT 73 H (4-34) U/L Lactate Dehydrogenase 2778 H (313-618) U/L Troponin I (0.000-0.034) ng/mL Total Protein 4.9 L (6.3-8.2) g/dL Albumin 2.4 L (3.5-5.0) g/dL Crossmatch 03/09/22 03/09/22 03/09/22 Range/Units 05:46 05:46 05:47 WBC (3.8-10.6) k/uL RBC (3.80-5.40) m/uL Hgb (11.4-16.0) gm/dL Hct (34.0-46.0) % MCHC (31.0-37.0) g/dL RDW (11.5-15.5) % Neutrophils # (1.3-7.7) k/uL Lymphocytes # (1.0-4.8) k/uL PT (9.0-12.0) sec INR (<1.2) APTT (22.0-30.0) sec ABG pH 7.57 H* (7.35-7.45) ABG pCO2 32 L (35-45) mmHg ABG pO2 249 H (83-108) mmHg ABG HCO3 29 H (21-25) mmol/L ABG Total CO2 30 H (19-24) mmol/L ABG O2 Saturation 100.0 H (94-97) % ABG Lactic Acid 2.0 H (0.5-1.6) mmol/L Potassium (3.5-5.1) mmol/L BUN (7-17) mg/dL Creatinine (0.52-1.04) mg/dL Glucose (74-99) mg/dL POC Glucose (mg/dL) 233 H (70-110) mg/dL Plasma Lactic Acid Mic (0.7-2.0) mmol/L Calcium (8.4-10.2) mg/dL Total Bilirubin (0.2-1.3) mg/dL Delta Bilirubin (0.0-0.2) mg/dL AST (14-36) U/L ALT (4-34) U/L Lactate Dehydrogenase (313-618) U/L Troponin I (0.000-0.034) ng/mL Total Protein (6.3-8.2) g/dL Albumin (3.5-5.0) g/dL Crossmatch
[2022-03-10 06:40] LABS: HGB 3.7 gm/dL (11.4-16.0)
[2022-03-10 06:43] LABS: Albumin 2.6 g/dL (3.5-5.0); Calcium 7.7 mg/dL (8.4-10.2); Magnesium 1.9 mg/dL (1.6-2.3); Potassium 4.1 mmol/L (3.5-5.1); Total Bilirubin 2.7 mg/dL (0.2-1.3); Total Protein 5.3 g/dL (6.3-8.2)
[2022-03-10 06:59] LABS: INR 1.6 (<1.2); Prothrombin Time 16.3 sec (9.0-12.0)
[2022-03-10 07:17] LABS: Eosinophils # (M) 0.48 k/uL (0-0.7); Lymphocytes # (M) 2.63 k/uL (1.0-4.8); Metamyelocytes # (M) 0.24 k/uL (0); Metamyelocytes % 1 %; Monocytes # (M) 1.67 k/uL (0-1.0); Myelocytes # (M) 0.24 k/uL (0); Myelocytes % 1 %; Neutrophils # (M) 18.88 k/uL (1.3-7.7); Neutrophils % (M) 79 %; Nucleated Red Blood Cells 2 /100 WBC (0-0); Total Cells Counted 200; WBC 23.9 k/uL (3.8-10.6)
[2022-03-10 07:18] LABS: Crenated RBC Present; Poikilocytosis (M) Present
[2022-03-10 07:19] LABS: RBC Fragments Present
--- NOTE | 2022-03-10 07:28 | XR ---
EXAMINATION TYPE: XR chest 1V portable DATE OF EXAM: 03/10/2022 5:37 AM COMPARISON: Chest radiograph from one day prior. TECHNIQUE: XR chest 1V portable Portable AP radiograph of the chest. CLINICAL INDICATION:Female, 47 years old with history of cardiac arrest; FINDINGS: Lungs/Pleura: There is no evidence of pleural effusion, focal consolidation, or pneumothorax. Pulmonary vascularity: Pulmonary vascular congestion. Heart/mediastinum: Cardiomediastinal silhouette is unremarkable. Musculoskeletal: No acute osseous pathology. Lines/Tubes: Endotracheal tube with distal tip 4.7 cm above the jeffy Nasogastric tube with its distal tip under the diaphragm. Side-port is at the level of the gastroesop hageal junction. Left ventricular cyst device with balloon projecting over the ascending aorta and aortic valve. IMPRESSION: 1. Left ventricular assist device appears to be extending up over the aortic arch into the ascending thoracic aorta and possibly through the aortic valve. A lateral radiograph could help confirm this. 2. Endotracheal and nasogastric tubes are in similar position. The endotracheal tube could be advanc ed at least 8 mm for optimal placement of the side port. 3. There remains mild pulmonary vascular edema.
--- NOTE | 2022-03-10 07:39 | P.PN ---
Subjective Progress Note Date: 03/10/22 Principal diagnosis: Cardiogenic shock This is a 47-year-old female patient with CAD and prior stenting of the LCx and LAD as well as into stage renal disease on dialysis was admitted to the hospital with chest discomfort. She went into cardiac arrest yesterday which she underw ent an emergent heart catheterization and she underwent stenting of the LAD and LCx. Before the procedure and during the procedure she went into cardiac arrest received CPR and received shock as well as. Mechanical support was initiated in addition to vasopressors. The patient was seen this morning. She continues to be unstable. Currently she is on mechanical support as well as chemical support with small dose of norepinephrine. She is intubated on mechanical ventilation. The hemoglobin t his morning is low at 3.7. I had a long and extensive discussion with the family yesterday and unfortunately because the patient is Jehovah witness she cannot receive any blood. From now and then there is no need to repeat the hemoglobin anymore. Currently she is on iron as well as erythropoietin. She is on dual antiplatelet therapy along with high intensity statin. Objective - Vital Signs Vital signs: Vital Signs Temp 99.1 F 03/10/22 04:00 Pulse 97 03/10/22 07:00 Resp 10 L 03/10/22 07:00 BP 102/69 03/10/22 07:00 Pulse Ox 94 L 03/10/22 07:00 FiO2 35 03/10/22 04:00 Intake & Output 03/09/22 03/10/22 03/10/22 18:59 06:59 18:59 Intake Total 905.480 874.488 Output Total 0 200 Balance 905.480 674.488 Weight 65.5 kg Intake: IV 426 399 0.9@20mls/hr 240 260 Desmopressin Acetate 20 50 mcg In Sodium Chloride 0. 9% 50 ml @ 200 mls/hr IVPB ONCE ONE Rx#: [id number] Sodium Ferric Gluconat- 100 100 Sucrose 125 mg In Sodium Chloride 0.9% 100 ml @ 100 mls/hr IVPB DAILY [facility] Rx#:[id number] pressure bag 36 39 Intake, IV Titration 479.480 475.488 Amount Heparin Sod,Pork in 0.45% 45.05 51.775 NaCl 25,000 unit In 0.45 % NaCl 1 250ml.bag @ 12 UNITS/KG/HR 7.076 mls/hr IV .Q24H [facility] Rx#: [id number] Norepinephrine 4 mg In 239.847 275.065 Sodium Chloride 0.9% 250 ml @ 0.05 MCG/KG/MIN 11. 233 mls/hr IV .[id number] [facility] Rx#:[id number] propofoL 1,000 mg In 194.583 148.648 Empty Bag 1 bag @ 5 MCG/ KG/MIN 1.769 mls/hr IV . Q24H [facility] Rx#:[id number] Output: Gastric Drainage 200 Urine 0 0 ABP, PAP, CO, CI - Last Documented Arterial Blood Pressure 101/61 - Constitutional General appearance: Present: no acute distress - Respiratory Respiratory: bilateral: diminished - Cardiovascular Rhythm: regular Heart sounds: normal: S1, S2 - Labs CBC & Chem 7: 03/10/22 05:43 03/10/22 05:43 Labs: Abnormal Lab Results - Last 24 Hours (Table) 03/09/22 03/09/22 03/09/22 Range/Units 11:34 14:42 14:42 WBC (3.8-10.6) k/uL RBC (3.80-5.40) m/uL Hgb (11.4-16.0) gm/dL Hct (34.0-46.0) % RDW (11.5-15.5) % Neutrophils # (Manual) (1.3-7.7) k/uL Monocytes # (Manual) (0-1.0) k/uL Metamyelocytes # (Man) (0) k/uL Myelocytes # (Manual) (0) k/uL Nucleated RBCs (0-0) /100 WBC PT (9.0-12.0) sec INR (<1.2) APTT (22.0-30.0) sec ABG pH (7.35-7.45) ABG pCO2 (35-45) mmHg ABG pO2 (83-108) mmHg ABG HCO3 (21-25) mmol/L ABG Total CO2 (19-24) mmol/L ABG O2 Saturation (94-97) % ABG Lactic Acid 4.1 H* (0.5-1.6) mmol/L Sodium (137-145) mmol/L BUN (7-17) mg/dL Creatinine (0.52-1.04) mg/dL Glucose (74-99) mg/dL POC Glucose (mg/dL) 220 H (70-110) mg/dL Calcium (8.4-10.2) mg/dL Total Bilirubin (0.2-1.3) mg/dL AST (14-36) U/L ALT (4-34) U/L Alkaline Phosphatase (38-126) U/L Lactate Dehydrogenase 3761 H (313-618) U/L Total Protein (6.3-8.2) g/dL Albumin (3.5-5.0) g/dL 03/09/22 03/09/22 03/09/22 Range/Units 16:40 16:40 16:40 WBC 19.5 H (3.8-10.6) k/uL RBC 1.75 L (3.80-5.40) m/uL Hgb 4.8 L* (11.4-16.0) gm/dL Hct 15.2 L* (34.0-46.0) % RDW 21.9 H (11.5-15.5) % Neutrophils # (Manual) 16.30 H (1.3-7.7) k/uL Monocytes # (Manual) (0-1.0) k/uL Metamyelocytes # (Man) (0) k/uL Myelocytes # (Manual) (0) k/uL Nucleated RBCs 7 H (0-0) /100 WBC PT 16.3 H (9.0-12.0) sec INR 1.6 H (<1.2) APTT 70.8 H (22.0-30.0) sec ABG pH (7.35-7.45) ABG pCO2 (35-45) mmHg ABG pO2 (83-108) mmHg ABG HCO3 (21-25) mmol/L ABG Total CO2 (19-24) mmol/L ABG O2 Saturation (94-97) % ABG Lactic Acid (0.5-1.6) mmol/L Sodium (137-145) mmol/L BUN 50 H (7-17) mg/dL Creatinine 5.10 H (0.52-1.04) mg/dL Glucose 186 H (74-99) mg/dL POC Glucose (mg/dL) (70-110) mg/dL Calcium 7.5 L (8.4-10.2) mg/dL Total Bilirubin 2.4 H (0.2-1.3) mg/dL AST 234 H (14-36) U/L ALT 56 H (4-34) U/L Alkaline Phosphatase (38-126) U/L Lactate Dehydrogenase (313-618) U/L Total Protein 4.9 L (6.3-8.2) g/dL Albumin 2.4 L (3.5-5.0) g/dL 03/09/22 03/09/22 03/10/22 Range/Units 18:38 22:45 00:51 WBC (3.8-10.6) k/uL RBC (3.80-5.40) m/uL Hgb (11.4-16.0) gm/dL Hct (34.0-46.0) % RDW (11.5-15.5) % Neutrophils # (Manual) (1.3-7.7) k/uL Monocytes # (Manual) (0-1.0) k/uL Metamyelocytes # (Man) (0) k/uL Myelocytes # (Manual) (0) k/uL Nucleated RBCs (0-0) /100 WBC PT (9.0-12.0) sec INR (<1.2) APTT 44.8 H (22.0-30.0) sec ABG pH (7.35-7.45) ABG pCO2 (35-45) mmHg ABG pO2 (83-108) mmHg ABG HCO3 (21-25) mmol/L ABG Total CO2 (19-24) mmol/L ABG O2 Saturation (94-97) % ABG Lactic Acid (0.5-1.6) mmol/L Sodium (137-145) mmol/L BUN (7-17) mg/dL Creatinine (0.52-1.04) mg/dL Glucose (74-99) mg/dL POC Glucose (mg/dL) 219 H 225 H (70-110) mg/dL Calcium (8.4-10.2) mg/dL Total Bilirubin (0.2-1.3) mg/dL AST (14-36) U/L ALT (4-34) U/L Alkaline Phosphatase (38-126) U/L Lactate Dehydrogenase (313-618) U/L Total Protein (6.3-8.2) g/dL Albumin (3.5-5.0) g/dL 03/10/22 03/10/22 03/10/22 Range/Units 01:08 05:43 05:43 WBC (3.8-10.6) k/uL RBC (3.80-5.40) m/uL Hgb (11.4-16.0) gm/dL Hct (34.0-46.0) % RDW (11.5-15.5) % Neutrophils # (Manual) (1.3-7.7) k/uL Monocytes # (Manual) (0-1.0) k/uL Metamyelocytes # (Man) (0) k/uL Myelocytes # (Manual) (0) k/uL Nucleated RBCs (0-0) /100 WBC PT 16.3 H (9.0-12.0) sec INR 1.6 H (<1.2) APTT 84.0 H (22.0-30.0) sec ABG pH (7.35-7.45) ABG pCO2 (35-45) mmHg ABG pO2 (83-108) mmHg ABG HCO3 (21-25) mmol/L ABG Total CO2 (19-24) mmol/L ABG O2 Saturation (94-97) % ABG Lactic Acid (0.5-1.6) mmol/L Sodium 134 L (137-145) mmol/L BUN 57 H (7-17) mg/dL Creatinine 5.88 H (0.52-1.04) mg/dL Glucose 151 H (74-99) mg/dL POC Glucose (mg/dL) (70-110) mg/dL Calcium 7.7 L (8.4-10.2) mg/dL Total Bilirubin 2.7 H (0.2-1.3) mg/dL AST 213 H (14-36) U/L ALT 45 H (4-34) U/L Alkaline Phosphatase 31 L (38-126) U/L Lactate Dehydrogenase 4781 H (313-618) U/L Total Protein 5.3 L (6.3-8.2) g/dL Albumin 2.6 L (3.5-5.0) g/dL 03/10/22 03/10/22 03/10/22 Range/Units 05:43 05:46 05:48 WBC 23.9 H (3.8-10.6) k/uL RBC 1.30 L (3.80-5.40) m/uL Hgb 3.7 L* (11.4-16.0) gm/dL Hct 11.0 L* (34.0-46.0) % RDW 23.7 H (11.5-15.5) % Neutrophils # (Manual) 18.88 H (1.3-7.7) k/uL Monocytes # (Manual) 1.67 H (0-1.0) k/uL Metamyelocytes # (Man) 0.24 H (0) k/uL Myelocytes # (Manual) 0.24 H (0) k/uL Nucleated RBCs 2 H (0-0) /100 WBC PT (9.0-12.0) sec INR (<1.2) APTT (22.0-30.0) sec ABG pH 7.53 H (7.35-7.45) ABG pCO2 31 L (35-45) mmHg ABG pO2 162 H (83-108) mmHg ABG HCO3 26 H (21-25) mmol/L ABG Total CO2 27 H (19-24) mmol/L ABG O2 Saturation 100.0 H (94-97) % ABG Lactic Acid (0.5-1.6) mmol/L Sodium (137-145) mmol/L BUN (7-17) mg/dL Creatinine (0.52-1.04) mg/dL Glucose (74-99) mg/dL POC Glucose (mg/dL) 200 H (70-110) mg/dL Calcium (8.4-10.2) mg/dL Total Bilirubin (0.2-1.3) mg/dL AST (14-36) U/L ALT (4-34) U/L Alkaline Phosphatase (38-126) U/L Lactate Dehydrogenase (313-618) U/L Total Protein (6.3-8.2) g/dL Albumin (3.5-5.0) g/dL Assessment and Plan Assessment: Assessment #1 cardiac arrest with V. fib and asystole #2 cardiogenic shock require mechanical and chemical support #3 CAD and status post a stenting of the LCx and LAD #4 end stage renal disease on dialysis #5 blood loss anemia. The hemoglobin this morning is 3.7. The patient is Jehovah witness and cannot receive any blood products #6 extremely critical condition and poor prognosis Plan #1 right wean the patient from norepinephrine. Currently she is on a small dose #2 she was started on midodrine by the nephrology team #3 she was started on iron as well as erythropoietin #4 continue mechanical support for now #6 continue IV heparin in the light of continuous mechanical support #7 an extensive discussion with the family was done last night and the patient wishes is not to receive any blood products #8 continue ventilator management care primary care team #9 continue dual antiplatelet therapy and high intensity statin #10 follow-up with the patient
[2022-03-10] MEDS ORDERED: DESMOPRESSIN ACETATE 20 MCG in SODIUM CHLORIDE 0.9% 50 ML IVPB ONE (07:50)
--- NOTE | 2022-03-10 08:15 | P.PN ---
Subjective Progress Note Date: 03/10/22 Principal diagnosis: Cardiac arrest 47-year-old female patient with past medical history of ESRD on hemodialysis at home, type 2 diabetes mellitus, hypertension, hyperlipidemia, coronary artery disease with prior history of stenting 4 who came into the emergency department on 03/07/2022 for evaluation of sudden onset substernal pressure-like chest pain, rating it 10 out of 10 associated with shortness of breath and nausea. Patient took 2 sublingual nitroglycerin with relief a few hours, only to return a few hours later. Patient has a history of prior MIs, in her substernal chest discomfort was similar to that when she had her prior MIs. Chest x-ray showed pulmonary interstitial edema. EKG in the emergency department showed sinus rhythm, with a rate of 96, without acute ischemic abnormalities. Prior echocardiogram from January 2022 showed EF of 40-45%. Laboratory evaluation showed troponin of 0.57, 0.66, 0.76. The BUN of 42, creatinine of 5.6. Normal white count of 4.7, hemoglobin of 8.7, platelet count of 249. ProBNP level was significantly elevated at 106,000 on admission. This morning patient was undergoing her hemodialysis and patient started experiencing low blood pressure and chest tightness during dialysis. Rapid response team was called, patient was hypotensive and bradycardic. Hemodialysis was discontinued. Initially patient received of fluid bolus however she subsequently went into pulseless electrical activity requiring CPR, ACLS, multiple rounds of epinephrine and sodium bicarbonate. Time to first return of spontaneous circulation was over 40 minutes with multiple subsequent episodes of cardiac arrest, V. fib, defibrillation,lidocaine and amiodarone. Patient was emergently chest to the [facility] where she underwent PCI and stenting of the LAD which was 80% occluded and left circumflex which was 100% occluded, patient received a total of 3 stents she was intubated and the [facility], she was transferred to the intensive care unit, for further management On 03/09/2022 patient seen in follow-up in the intensive care unit, she remains sedated, and intubated on assist control with a rate of 22, tidal on his 400, FiO2 of 40% and PEEP of 5. This am Shows pO2 of 249, pCO2 of 32, and pH of 7.57. Today's chest x-ray shows cardiomegaly with pulmonary vascular congestion, similar to the prior exam, and a G-tube with the side port terminating near the GE junction, with a recommendation of advancing the NG tube 7 cm for optimal placement. Patient is on Brovana 75 mics per kilo per minute, point normal sitting at a rate of 20 ML per hour, norepinephrine is at 0.08 mics per kilo per minutes or 5.8 mics per minute, heparin infusion at weight-based protocol. Patient has Impella device still in place at peak 9, 3.5 L/m area. Patient is in sinus mechanism slightly tachycardic with a rate of 1:15 BPM. Patient developed some oozing and bleeding from the left groin Impella insertion device site last night, currently on aspirin and Effient. Manual pressure has been held however patient continued to lose from the puncture site, there is no hematoma, currently there is a FemoStop in place, and the bleeding is controlle d. Minimal vasopressor support only at 5.8 mics per minute. Today's labs have been reviewed, hemoglobin is down 5.9 from 7.1 on last night set of labs, white blood cell count is 13.4, platelet count was 217. INR is 1.6, and fibrinogen level was 298. Electrolytes were within normal limits, potassium 3.9, BUN is 44, creatinine is 4.6. Nephrology is following. AST was 261, ALT is 73, alkaline phosphatase is 53, LDH is 2778. Patient is sedated, slightly restless, she does move her lower extremities, does not open eyes to voice. Patient's family informed the staff that patient is a Jehovah's witnesses and she is not to receive any blood products. Nephrology has been consulted, patient will be given iron infusion, she is already on Aranesp every 7 days, has received a dose of DDAVP. Patient is a neurectomy, yesterday she did receive hemodialysis treatment in the morning with subsequent deterioration in her clinical status and cardiac arrest. Per nursing staff hemodialysis was not resumed last night. Will await further recommendations from nephrology, bicarb infusion has been d iscontinued, recovered to concentrate on today's labs is 29. On 03/10/2022 patient seen in follow-up in intensive care unit. He remains sedated and intubated, assist-control with a rate of 18, tidal on his 400, FiO2 is 35% and PEEP of 5, this morning's blood gas shows pO2 of 162, pCO2 31, and pH of 7.53. FiO2 was further dropped down to 25%. Today's chest x-ray shows left ventricular assist device in place extending up over the aortic arch into the descending thoracic aorta possibly through the aortic valve. ET and NG tube are in similar position as yesterday, mild pulmonary vascular edema. Currently patient is on IV heparin per weight based protocol, norepinephrine at 7.8 mics per minute, propofol at 55 mics per kilo per minute, 0.9#rate to 20 mL an hour. No tube feedings, dietary has been consulted, patient will be started on enteral feedings. Patient still has a FemoStop on her left groin, which is still oozing, today's labs have been reviewed, hemoglobin is down to 3.7, white blood cell count is 23.9, INR is 1.6, sodium is 134, potassium is 4.1, BUN is 57 and creatinine is 5.8. Patient was dialyzed yesterday and 1 L of fluid was removed with dialysis. She received a dose of DDAVP, iron transfusion, and she remains on Aranesp. Patient's family is adamant about not transfusing blood products related to her spiritism (Denominational). Impella ventricular assist device remains in place. Objective - Vital Signs Vital signs: Vital Signs Temp 99.1 F 03/10/22 04:00 Pulse 97 03/10/22 07:00 Resp 10 L 03/10/22 07:00 BP 102/69 03/10/22 07:00 Pulse Ox 94 L 03/10/22 07:00 FiO2 25 03/10/22 07:36 Intake & Output 03/09/22 03/10/22 03/10/22 18:59 06:59 18:59 Intake Total 905.480 874.488 41.471 Output Total 0 200 Balance 905.480 674.488 41.471 Weight 65.5 kg Intake: IV 426 399 0.9@20mls/hr 240 260 Desmopressin Acetate 20 50 mcg In Sodium Chloride 0. 9% 50 ml @ 200 mls/hr IVPB ONCE ONE Rx#: [id number] Sodium Ferric Gluconat- 100 100 Sucrose 125 mg In Sodium Chloride 0.9% 100 ml @ 100 mls/hr IVPB DAILY [facility] Rx#:[id number] pressure bag 36 39 Intake, IV Titration 479.480 475.488 41.471 Amount Heparin Sod,Pork in 0.45% 45.05 51.775 16.982 NaCl 25,000 unit In 0.45 % NaCl 1 250ml.bag @ 12 UNITS/KG/HR 7.076 mls/hr IV .Q24H [facility] Rx#: [id number] Norepinephrine 4 mg In 239.847 275.065 24.489 Sodium Chloride 0.9% 250 ml @ 0.05 MCG/KG/MIN 11. 233 mls/hr IV .[id number] [facility] Rx#:[id number] propofoL 1,000 mg In 194.583 148.648 Empty Bag 1 bag @ 5 MCG/ KG/MIN 1.769 mls/hr IV . Q24H [facility] Rx#:[id number] Output: Gastric Drainage 200 Urine 0 0 ABP, PAP, CO, CI - Last Documented Arterial Blood Pressure 101/61 - Exam GENERAL EXAM: Sedated, intubated, 47-year-old female on assist control mode of ventilation, with FiO2 35percent and PEEP of 5 comfortable in no apparent distress. HEAD: Normocephalic/atraumatic. EYES: Normal reaction of pupils, equal size. Conjunctiva pink, sclera white. NOSE: Clear with pink turbinates. THROAT: No erythema or exudates. NECK: No masses, no JVD, no thyroid enlargement, no adenopathy. CHEST: No chest wall deformity. Symmetrical expansion. LUNGS: Equal air entry with no crackles, wheeze, rhonchi or dullness. CVS: Regular rate and rhythm, normal S1 and S2, no gallops, no murmurs, no rubs ABDOMEN: Soft, nontender. No hepatosplenomegaly, normal bowel sounds, no guarding or rigidity. EXTREMITIES: No clubbing, no edema, no cyanosis, 2+ pulses and upper and lower extremities. Left groin Impella device insertion site with Femostop in place MUSCULOSKELETAL: Muscle strength and tone normal. SPINE: No scoliosis or deformity SKIN: No rashes CENTRAL NERVOUS SYSTEM: Sedated and intubated No focal deficits, tone is normal in all 4 extremities. - Labs CBC & Chem 7: 03/10/22 05:43 03/10/22 05:43 Labs: Abnormal Lab Results - Last 24 Hours (Table) 03/09/22 03/09/22 03/09/22 Range/Units 11:34 14:42 14:42 WBC (3.8-10.6) k/uL RBC (3.80-5.40) m/uL Hgb (11.4-16.0) gm/dL Hct (34.0-46.0) % RDW (11.5-15.5) % Neutrophils # (Manual) (1.3-7.7) k/uL Monocytes # (Manual) (0-1.0) k/uL Metamyelocytes # (Man) (0) k/uL Myelocytes # (Manual) (0) k/uL Nucleated RBCs (0-0) /100 WBC PT (9.0-12.0) sec INR (<1.2) APTT (22.0-30.0) sec ABG pH (7.35-7.45) ABG pCO2 (35-45) mmHg ABG pO2 (83-108) mmHg ABG HCO3 (21-25) mmol/L ABG Total CO2 (19-24) mmol/L ABG O2 Saturation (94-97) % ABG Lactic Acid 4.1 H* (0.5-1.6) mmol/L Sodium (137-145) mmol/L BUN (7-17) mg/dL Creatinine (0.52-1.04) mg/dL Glucose (74-99) mg/dL POC Glucose (mg/dL) 220 H (70-110) mg/dL Calcium (8.4-10.2) mg/dL Total Bilirubin (0.2-1.3) mg/dL AST (14-36) U/L ALT (4-34) U/L Alkaline Phosphatase (38-126) U/L Lactate Dehydrogenase 3761 H (313-618) U/L Total Protein (6.3-8.2) g/dL Albumin (3.5-5.0) g/dL 03/09/22 03/09/22 03/09/22 Range/Units 16:40 16:40 16:40 WBC 19.5 H (3.8-10.6) k/uL RBC 1.75 L (3.80-5.40) m/uL Hgb 4.8 L* (11.4-16.0) gm/dL Hct 15.2 L* (34.0-46.0) % RDW 21.9 H (11.5-15.5) % Neutrophils # (Manual) 16.30 H (1.3-7.7) k/uL Monocytes # (Manual) (0-1.0) k/uL Metamyelocytes # (Man) (0) k/uL Myelocytes # (Manual) (0) k/uL Nucleated RBCs 7 H (0-0) /100 WBC PT 16.3 H (9.0-12.0) sec INR 1.6 H (<1.2) APTT 70.8 H (22.0-30.0) sec ABG pH (7.35-7.45) ABG pCO2 (35-45) mmHg ABG pO2 (83-108) mmHg ABG HCO3 (21-25) mmol/L ABG Total CO2 (19-24) mmol/L ABG O2 Saturation (94-97) % ABG Lactic Acid (0.5-1.6) mmol/L Sodium (137-145) mmol/L BUN 50 H (7-17) mg/dL Creatinine 5.10 H (0.52-1.04) mg/dL Glucose 186 H (74-99) mg/dL POC Glucose (mg/dL) (70-110) mg/dL Calcium 7.5 L (8.4-10.2) mg/dL Total Bilirubin 2.4 H (0.2-1.3) mg/dL AST 234 H (14-36) U/L ALT 56 H (4-34) U/L Alkaline Phosphatase (38-126) U/L Lactate Dehydrogenase (313-618) U/L Total Protein 4.9 L (6.3-8.2) g/dL Albumin 2.4 L (3.5-5.0) g/dL 03/09/22 03/09/22 03/10/22 Range/Units 18:38 22:45 00:51 WBC (3.8-10.6) k/uL RBC (3.80-5.40) m/uL Hgb (11.4-16.0) gm/dL Hct (34.0-46.0) % RDW (11.5-15.5) % Neutrophils # (Manual) (1.3-7.7) k/uL Monocytes # (Manual) (0-1.0) k/uL Metamyelocytes # (Man) (0) k/uL Myelocytes # (Manual) (0) k/uL Nucleated RBCs (0-0) /100 WBC PT (9.0-12.0) sec INR (<1.2) APTT 44.8 H (22.0-30.0) sec ABG pH (7.35-7.45) ABG pCO2 (35-45) mmHg ABG pO2 (83-108) mmHg ABG HCO3 (21-25) mmol/L ABG Total CO2 (19-24) mmol/L ABG O2 Saturation (94-97) % ABG Lactic Acid (0.5-1.6) mmol/L Sodium (137-145) mmol/L BUN (7-17) mg/dL Creatinine (0.52-1.04) mg/dL Glucose (74-99) mg/dL POC Glucose (mg/dL) 219 H 225 H (70-110) mg/dL Calcium (8.4-10.2) mg/dL Total Bilirubin (0.2-1.3) mg/dL AST (14-36) U/L ALT (4-34) U/L Alkaline Phosphatase (38-126) U/L Lactate Dehydrogenase (313-618) U/L Total Protein (6.3-8.2) g/dL Albumin (3.5-5.0) g/dL 03/10/22 03/10/22 03/10/22 Range/Units 01:08 05:43 05:43 WBC (3.8-10.6) k/uL RBC (3.80-5.40) m/uL Hgb (11.4-16.0) gm/dL Hct (34.0-46.0) % RDW (11.5-15.5) % Neutrophils # (Manual) (1.3-7.7) k/uL Monocytes # (Manual) (0-1.0) k/uL Metamyelocytes # (Man) (0) k/uL Myelocytes # (Manual) (0) k/uL Nucleated RBCs (0-0) /100 WBC PT 16.3 H (9.0-12.0) sec INR 1.6 H (<1.2) APTT 84.0 H (22.0-30.0) sec ABG pH (7.35-7.45) ABG pCO2 (35-45) mmHg ABG pO2 (83-108) mmHg ABG HCO3 (21-25) mmol/L ABG Total CO2 (19-24) mmol/L ABG O2 Saturation (94-97) % ABG Lactic Acid (0.5-1.6) mmol/L Sodium 134 L (137-145) mmol/L BUN 57 H (7-17) mg/dL Creatinine 5.88 H (0.52-1.04) mg/dL Glucose 151 H (74-99) mg/dL POC Glucose (mg/dL) (70-110) mg/dL Calcium 7.7 L (8.4-10.2) mg/dL Total Bilirubin 2.7 H (0.2-1.3) mg/dL AST 213 H (14-36) U/L ALT 45 H (4-34) U/L Alkaline Phosphatase 31 L (38-126) U/L Lactate Dehydrogenase 4781 H (313-618) U/L Total Protein 5.3 L (6.3-8.2) g/dL Albumin 2.6 L (3.5-5.0) g/dL 03/10/22 03/10/22 03/10/22 Range/Units 05:43 05:46 05:48 WBC 23.9 H (3.8-10.6) k/uL RBC 1.30 L (3.80-5.40) m/uL Hgb 3.7 L* (11.4-16.0) gm/dL Hct 11.0 L* (34.0-46.0) % RDW 23.7 H (11.5-15.5) % Neutrophils # (Manual) 18.88 H (1.3-7.7) k/uL Monocytes # (Manual) 1.67 H (0-1.0) k/uL Metamyelocytes # (Man) 0.24 H (0) k/uL Myelocytes # (Manual) 0.24 H (0) k/uL Nucleated RBCs 2 H (0-0) /100 WBC PT (9.0-12.0) sec INR (<1.2) APTT (22.0-30.0) sec ABG pH 7.53 H (7.35-7.45) ABG pCO2 31 L (35-45) mmHg ABG pO2 162 H (83-108) mmHg ABG HCO3 26 H (21-25) mmol/L ABG Total CO2 27 H (19-24) mmol/L ABG O2 Saturation 100.0 H (94-97) % ABG Lactic Acid (0.5-1.6) mmol/L Sodium (137-145) mmol/L BUN (7-17) mg/dL Creatinine (0.52-1.04) mg/dL Glucose (74-99) mg/dL POC Glucose (mg/dL) 200 H (70-110) mg/dL Calcium (8.4-10.2) mg/dL Total Bilirubin (0.2-1.3) mg/dL AST (14-36) U/L ALT (4-34) U/L Alkaline Phosphatase (38-126) U/L Lactate Dehydrogenase (313-618) U/L Total Protein (6.3-8.2) g/dL Albumin (3.5-5.0) g/dL Assessment and Plan Plan: Assessment: #1. Acute cardiac arrest, related to acute non-ST elevated myocardial infarction, patient suffered multiple episodes of cardiac arrest, requiring CPR and ACLS protocol with return of spontaneous circulation #2. Acute coronary syndrome, status post emergent heart catheterization and PCI and stenting of the LAD and left circumflex with Impella support on 03/08/2022 #3. Acute cardiogenic shock related to acute non-ST elevated myocardial infarction, status post Impella device support and vasopressors, currently norepinephrine infusion is at 7.8 mics per minute #4. Acute hypoxic respiratory failure related to the above, requiring intubation and mechanical ventilator support #5. Acute blood loss anemia, patient has developed bleeding from the left groin Impella insertion site, currently the bleeding is controlled with Femostop, patient is a Denominational, cannot accept blood products #6. End-stage renal disease on hemodialysis #7. Hypertension #8. Dyslipidemia #9. Diabetes mellitus type 2 #10. Previous history of coronary artery disease with PCI and stenting and previous MIs #11. Ischemic cardiomyopathy Plan: Chest x-ray, blood gases, labs reviewed Patient was examined at the bedside Fio2 down to 25 Hemoglobin is down to 3.9, patient is on small dose of norepinephrine Left groin bleeding still has a Femostop in place to control the bleeding Patient cannot accept blood products related to her spiritism (Denominational) Received DDVAP, iron transfusion, and Aranesp Cardiology and nephrology recommendations We'll start tube feedings today No spontaneous breathing trials Follow-up blood work, ABG and chest x-ray in the morning We'll continue to follow I have personally seen and examined the patient, performed the documentation and the assessment and plan as written. Number of minutes spent on the visit: [15] Time with Patient: Greater than 30
--- NOTE | 2022-03-10 08:17 | P.PN ---
Subjective patient is seen for follow-up for end-stage renal disease. Patient is seen in the ICU Ev[facility] at she remains sedated and is on the vent. FiO2 at 25%. Patient remains on levo fed currently at about 0.16 mcg/kg. This is slightly increased overnight. Hemoglobin today was 3.7 g/dL. Bleeding from the left femoral site seems to have slowed down. Family continues to refuse blood transfusion as patient is a Sikh. She did get extra dose of Aranesp, IV dose of iron and DDAVP yesterday. IV iron was repeated this morning and I will repeat another dose of DDAVP today. No other episodes of cardiac arrest Objective - Vital Signs Vital signs: Vital Signs Temp 99.1 F 03/10/22 04:00 Pulse 97 03/10/22 07:00 Resp 10 L 03/10/22 07:00 BP 102/69 03/10/22 07:00 Pulse Ox 94 L 03/10/22 07:00 FiO2 25 03/10/22 07:36 Intake & Output 03/09/22 03/10/22 03/10/22 18:59 06:59 18:59 Intake Total 905.480 874.488 41.471 Output Total 0 200 Balance 905.480 674.488 41.471 Weight 65.5 kg Intake: IV 426 399 0.9@20mls/hr 240 260 Desmopressin Acetate 20 50 mcg In Sodium Chloride 0. 9% 50 ml @ 200 mls/hr IVPB ONCE ONE Rx#: [id number] Sodium Ferric Gluconat- 100 100 Sucrose 125 mg In Sodium Chloride 0.9% 100 ml @ 100 mls/hr IVPB DAILY ALO Rx#:[id number] pressure bag 36 39 Intake, IV Titration 479.480 475.488 41.471 Amount Heparin Sod,Pork in 0.45% 45.05 51.775 16.982 NaCl 25,000 unit In 0.45 % NaCl 1 250ml.bag @ 12 UNITS/KG/HR 7.076 mls/hr IV .Q24H ALO Rx#: [id number] Norepinephrine 4 mg In 239.847 275.065 24.489 Sodium Chloride 0.9% 250 ml @ 0.05 MCG/KG/MIN 11. 233 mls/hr IV .[id number] ALO Rx#:[id number] propofoL 1,000 mg In 194.583 148.648 Empty Bag 1 bag @ 5 MCG/ KG/MIN 1.769 mls/hr IV . Q24H [facility]O Rx#:[id number] Output: Gastric Drainage 200 Urine 0 0 ABP, PAP, CO, CI - Last Documented Arterial Blood Pressure 101/61 - Exam sedated, on the vent Examination of the heart S1 and S2 Examination lungs bilateral breath sounds are heard Abdomen is soft nontender Examination of the lower extremity shows no edema. Left femoral site has a femstop. - Labs CBC & Chem 7: 03/10/22 05:43 03/10/22 05:43 Labs: Abnormal Lab Results - Last 24 Hours (Table) 03/09/22 03/09/22 03/09/22 Range/Units 11:34 14:42 14:42 WBC (3.8-10.6) k/uL RBC (3.80-5.40) m/uL Hgb (11.4-16.0) gm/dL Hct (34.0-46.0) % RDW (11.5-15.5) % Neutrophils # (Manual) (1.3-7.7) k/uL Monocytes # (Manual) (0-1.0) k/uL Metamyelocytes # (Man) (0) k/uL Myelocytes # (Manual) (0) k/uL Nucleated RBCs (0-0) /100 WBC PT (9.0-12.0) sec INR (<1.2) APTT (22.0-30.0) sec ABG pH (7.35-7.45) ABG pCO2 (35-45) mmHg ABG pO2 (83-108) mmHg ABG HCO3 (21-25) mmol/L ABG Total CO2 (19-24) mmol/L ABG O2 Saturation (94-97) % ABG Lactic Acid 4.1 H* (0.5-1.6) mmol/L Sodium (137-145) mmol/L BUN (7-17) mg/dL Creatinine (0.52-1.04) mg/dL Glucose (74-99) mg/dL POC Glucose (mg/dL) 220 H (70-110) mg/dL Calcium (8.4-10.2) mg/dL Total Bilirubin (0.2-1.3) mg/dL AST (14-36) U/L ALT (4-34) U/L Alkaline Phosphatase (38-126) U/L Lactate Dehydrogenase 3761 H (313-618) U/L Total Protein (6.3-8.2) g/dL Albumin (3.5-5.0) g/dL 03/09/22 03/09/22 03/09/22 Range/Units 16:40 16:40 16:40 WBC 19.5 H (3.8-10.6) k/uL RBC 1.75 L (3.80-5.40) m/uL Hgb 4.8 L* (11.4-16.0) gm/dL Hct 15.2 L* (34.0-46.0) % RDW 21.9 H (11.5-15.5) % Neutrophils # (Manual) 16.30 H (1.3-7.7) k/uL Monocytes # (Manual) (0-1.0) k/uL Metamyelocytes # (Man) (0) k/uL Myelocytes # (Manual) (0) k/uL Nucleated RBCs 7 H (0-0) /100 WBC PT 16.3 H (9.0-12.0) sec INR 1.6 H (<1.2) APTT 70.8 H (22.0-30.0) sec ABG pH (7.35-7.45) ABG pCO2 (35-45) mmHg ABG pO2 (83-108) mmHg ABG HCO3 (21-25) mmol/L ABG Total CO2 (19-24) mmol/L ABG O2 Saturation (94-97) % ABG Lactic Acid (0.5-1.6) mmol/L Sodium (137-145) mmol/L BUN 50 H (7-17) mg/dL Creatinine 5.10 H (0.52-1.04) mg/dL Glucose 186 H (74-99) mg/dL POC Glucose (mg/dL) (70-110) mg/dL Calcium 7.5 L (8.4-10.2) mg/dL Total Bilirubin 2.4 H (0.2-1.3) mg/dL AST 234 H (14-36) U/L ALT 56 H (4-34) U/L Alkaline Phosphatase (38-126) U/L Lactate Dehydrogenase (313-618) U/L Total Protein 4.9 L (6.3-8.2) g/dL Albumin 2.4 L (3.5-5.0) g/dL 03/09/22 03/09/22 03/10/22 Range/Units 18:38 22:45 00:51 WBC (3.8-10.6) k/uL RBC (3.80-5.40) m/uL Hgb (11.4-16.0) gm/dL Hct (34.0-46.0) % RDW (11.5-15.5) % Neutrophils # (Manual) (1.3-7.7) k/uL Monocytes # (Manual) (0-1.0) k/uL Metamyelocytes # (Man) (0) k/uL Myelocytes # (Manual) (0) k/uL Nucleated RBCs (0-0) /100 WBC PT (9.0-12.0) sec INR (<1.2) APTT 44.8 H (22.0-30.0) sec ABG pH (7.35-7.45) ABG pCO2 (35-45) mmHg ABG pO2 (83-108) mmHg ABG HCO3 (21-25) mmol/L ABG Total CO2 (19-24) mmol/L ABG O2 Saturation (94-97) % ABG Lactic Acid (0.5-1.6) mmol/L Sodium (137-145) mmol/L BUN (7-17) mg/dL Creatinine (0.52-1.04) mg/dL Glucose (74-99) mg/dL POC Glucose (mg/dL) 219 H 225 H (70-110) mg/dL Calcium (8.4-10.2) mg/dL Total Bilirubin (0.2-1.3) mg/dL AST (14-36) U/L ALT (4-34) U/L Alkaline Phosphatase (38-126) U/L Lactate Dehydrogenase (313-618) U/L Total Protein (6.3-8.2) g/dL Albumin (3.5-5.0) g/dL 03/10/22 03/10/22 03/10/22 Range/Units 01:08 05:43 05:43 WBC (3.8-10.6) k/uL RBC (3.80-5.40) m/uL Hgb (11.4-16.0) gm/dL Hct (34.0-46.0) % RDW (11.5-15.5) % Neutrophils # (Manual) (1.3-7.7) k/uL Monocytes # (Manual) (0-1.0) k/uL Metamyelocytes # (Man) (0) k/uL Myelocytes # (Manual) (0) k/uL Nucleated RBCs (0-0) /100 WBC PT 16.3 H (9.0-12.0) sec INR 1.6 H (<1.2) APTT 84.0 H (22.0-30.0) sec ABG pH (7.35-7.45) ABG pCO2 (35-45) mmHg ABG pO2 (83-108) mmHg ABG HCO3 (21-25) mmol/L ABG Total CO2 (19-24) mmol/L ABG O2 Saturation (94-97) % ABG Lactic Acid (0.5-1.6) mmol/L Sodium 134 L (137-145) mmol/L BUN 57 H (7-17) mg/dL Creatinine 5.88 H (0.52-1.04) mg/dL Glucose 151 H (74-99) mg/dL POC Glucose (mg/dL) (70-110) mg/dL Calcium 7.7 L (8.4-10.2) mg/dL Total Bilirubin 2.7 H (0.2-1.3) mg/dL AST 213 H (14-36) U/L ALT 45 H (4-34) U/L Alkaline Phosphatase 31 L (38-126) U/L Lactate Dehydrogenase 4781 H (313-618) U/L Total Protein 5.3 L (6.3-8.2) g/dL Albumin 2.6 L (3.5-5.0) g/dL 03/10/22 03/10/22 03/10/22 Range/Units 05:43 05:46 05:48 WBC 23.9 H (3.8-10.6) k/uL RBC 1.30 L (3.80-5.40) m/uL Hgb 3.7 L* (11.4-16.0) gm/dL Hct 11.0 L* (34.0-46.0) % RDW 23.7 H (11.5-15.5) % Neutrophils # (Manual) 18.88 H (1.3-7.7) k/uL Monocytes # (Manual) 1.67 H (0-1.0) k/uL Metamyelocytes # (Man) 0.24 H (0) k/uL Myelocytes # (Manual) 0.24 H (0) k/uL Nucleated RBCs 2 H (0-0) /100 WBC PT (9.0-12.0) sec INR (<1.2) APTT (22.0-30.0) sec ABG pH 7.53 H (7.35-7.45) ABG pCO2 31 L (35-45) mmHg ABG pO2 162 H (83-108) mmHg ABG HCO3 26 H (21-25) mmol/L ABG Total CO2 27 H (19-24) mmol/L ABG O2 Saturation 100.0 H (94-97) % ABG Lactic Acid (0.5-1.6) mmol/L Sodium (137-145) mmol/L BUN (7-17) mg/dL Creatinine (0.52-1.04) mg/dL Glucose (74-99) mg/dL POC Glucose (mg/dL) 200 H (70-110) mg/dL Calcium (8.4-10.2) mg/dL Total Bilirubin (0.2-1.3) mg/dL AST (14-36) U/L ALT (4-34) U/L Alkaline Phosphatase (38-126) U/L Lactate Dehydrogenase (313-618) U/L Total Protein (6.3-8.2) g/dL Albumin (3.5-5.0) g/dL Assessment and Plan Assessment: 1. End-stage renal disease on hemodialysis. Patient had been on home hemodialysis. At this time dialysis on hold as patient has been too unstable. 2. Acute blood loss anemia with closing at the site of cardiac catheterization, currently improved. Hemoglobin however remains low 3. Status post cardiac arrest multiple times 4.status post stenting of LAD and circumflex 5. Cardiogenic and hypovolemic shock Plan: repeat a dose of DDAVP I will discuss with patient's mother again regarding packed RBCs transfusion Continue to hold dialysis for now
[2022-03-10] MEDS: CALCIUM ACETATE 667 MG TAB PO SCH ×2 (08:43→12:54)
[2022-03-10] MEDS: PANTOPRAZOLE 40 MG/10 ML VIAL IVP SCH (08:44)
[2022-03-10] MEDS: CHLORHEXIDINE GLUCONATE 15 ML CUP MUCOUS MEM SCH (08:44)
[2022-03-10] MEDS: PRASUGREL 10 MG TAB PO SCH (08:44)
[2022-03-10] MEDS: ASPIRIN 81 MG PO SCH (08:46)
[2022-03-10] MEDS: MIDODRINE 5 MG TAB PO SCH ×2 (09:48→12:57)
[2022-03-10] MEDS ORDERED: NOREPINEPHRINE 32 MG in SODIUM CHLORIDE 0.9% 218 ML IV SCH (10:00)
--- NOTE | 2022-03-10 10:57 | P.PN ---
Subjective Progress Note Date: 03/10/22 The patient seen at bedside and the per the patient's nurse her anemia is getting worse. She continues to be on IV heparin drip from a cardiology perspective. She continues to be on norepinephrine and blood pressure is in the systolic in the 80s. Patient is Buddhism and the is seems that the saman izquierdo continues to refuse any blood transfusion. Because the patient is unstable she could not get a CT of the head. She is not moving her extremities as profound as yesterday and not upper extremity restraints was removed. Objective - Vital Signs Vital signs: Vital Signs Temp 98.7 F 03/10/22 08:00 Pulse 113 H 03/10/22 10:15 Resp 21 03/10/22 10:15 BP 113/69 03/10/22 10:15 Pulse Ox 89 L 03/10/22 10:00 FiO2 25 03/10/22 08:00 Intake & Output 03/09/22 03/10/22 03/10/22 18:59 06:59 18:59 Intake Total 905.480 874.488 339.879 Output Total 0 200 0 Balance 905.480 674.488 339.879 Weight 65.5 kg Intake: IV 426 399 119 0.9@20mls/hr 240 260 60 Desmopressin Acetate 20 50 50 mcg In Sodium Chloride 0. 9% 50 ml @ 200 mls/hr IVPB ONCE ONE Rx#: [id number] Sodium Ferric Gluconat- 100 100 Sucrose 125 mg In Sodium Chloride 0.9% 100 ml @ 100 mls/hr IVPB DAILY ALO Rx#:[id number] pressure bag 36 39 9 Intake, IV Titration 479.480 475.488 220.879 Amount Heparin Sod,Pork in 0.45% 45.05 51.775 16.982 NaCl 25,000 unit In 0.45 % NaCl 1 250ml.bag @ 12 UNITS/KG/HR 7.076 mls/hr IV .Q24H [facility] Rx#: [id number] Norepinephrine 32 mg In 3.377 Sodium Chloride 0.9% 218 ml @ 0.05 MCG/KG/MIN 1. 535 mls/hr IV .Q24H [facility]O Rx#:[id number] Norepinephrine 4 mg In 239.847 275.065 108.738 Sodium Chloride 0.9% 250 ml @ 0.05 MCG/KG/MIN 11. 233 mls/hr IV .[id number] ALO Rx#:[id number] propofoL 1,000 mg In 194.583 148.648 91.782 Empty Bag 1 bag @ 5 MCG/ KG/MIN 1.769 mls/hr IV . Q24H [facility]O Rx#:[id number] Output: Gastric Drainage 200 Urine 0 0 0 ABP, PAP, CO, CI - Last Documented Arterial Blood Pressure 136/82 - Exam GENERAL: The patient is lying in bed and does not seem in acute distress.. LUNG: Intubated on ventilator. ABDOMEN/GI: Bowel sounds present in all 4 quadrants. No tenderness to palpation throughout. NEUROLOGICAL: Limited because of her condition. IV Propofol 55mcg/kg/min Higher mental function: The patient is comatose GCS 3 (E1, VT1, M1). Is not following commands or attempting to verbalize. Cranial nerves: I had to manually open her eyes. The pupils are round, equal 3mm and hard to appreciated eye reactivity bilaterally. No corneal reflex. No facial weakness. Negative Occulocephalic reflex. Has weak gag reflex. Was not breathing over the vent at setting of AC18 but taking down to 1 she was. Motor: Strength: Not moving any extremities spontaneously and to painful stimuli not withdrawing. Cerebellum: Unable to assess. Sensation: Unable to assess light touch and not grimacing face to painful stimuli. - Labs CBC & Chem 7: 03/10/22 05:43 03/10/22 05:43 Labs: Abnormal Lab Results - Last 24 Hours (Table) 03/09/22 03/09/22 03/09/22 Range/Units 11:34 14:42 14:42 WBC (3.8-10.6) k/uL RBC (3.80-5.40) m/uL Hgb (11.4-16.0) gm/dL Hct (34.0-46.0) % RDW (11.5-15.5) % Neutrophils # (Manual) (1.3-7.7) k/uL Monocytes # (Manual) (0-1.0) k/uL Metamyelocytes # (Man) (0) k/uL Myelocytes # (Manual) (0) k/uL Nucleated RBCs (0-0) /100 WBC PT (9.0-12.0) sec INR (<1.2) APTT (22.0-30.0) sec ABG pH (7.35-7.45) ABG pCO2 (35-45) mmHg ABG pO2 (83-108) mmHg ABG HCO3 (21-25) mmol/L ABG Total CO2 (19-24) mmol/L ABG O2 Saturation (94-97) % ABG Lactic Acid 4.1 H* (0.5-1.6) mmol/L Sodium (137-145) mmol/L BUN (7-17) mg/dL Creatinine (0.52-1.04) mg/dL Glucose (74-99) mg/dL POC Glucose (mg/dL) 220 H (70-110) mg/dL Calcium (8.4-10.2) mg/dL Total Bilirubin (0.2-1.3) mg/dL AST (14-36) U/L ALT (4-34) U/L Alkaline Phosphatase (38-126) U/L Lactate Dehydrogenase 3761 H (313-618) U/L Total Protein (6.3-8.2) g/dL Albumin (3.5-5.0) g/dL 03/09/22 03/09/22 03/09/22 Range/Units 16:40 16:40 16:40 WBC 19.5 H (3.8-10.6) k/uL RBC 1.75 L (3.80-5.40) m/uL Hgb 4.8 L* (11.4-16.0) gm/dL Hct 15.2 L* (34.0-46.0) % RDW 21.9 H (11.5-15.5) % Neutrophils # (Manual) 16.30 H (1.3-7.7) k/uL Monocytes # (Manual) (0-1.0) k/uL Metamyelocytes # (Man) (0) k/uL Myelocytes # (Manual) (0) k/uL Nucleated RBCs 7 H (0-0) /100 WBC PT 16.3 H (9.0-12.0) sec INR 1.6 H (<1.2) APTT 70.8 H (22.0-30.0) sec ABG pH (7.35-7.45) ABG pCO2 (35-45) mmHg ABG pO2 (83-108) mmHg ABG HCO3 (21-25) mmol/L ABG Total CO2 (19-24) mmol/L ABG O2 Saturation (94-97) % ABG Lactic Acid (0.5-1.6) mmol/L Sodium (137-145) mmol/L BUN 50 H (7-17) mg/dL Creatinine 5.10 H (0.52-1.04) mg/dL Glucose 186 H (74-99) mg/dL POC Glucose (mg/dL) (70-110) mg/dL Calcium 7.5 L (8.4-10.2) mg/dL Total Bilirubin 2.4 H (0.2-1.3) mg/dL AST 234 H (14-36) U/L ALT 56 H (4-34) U/L Alkaline Phosphatase (38-126) U/L Lactate Dehydrogenase (313-618) U/L Total Protein 4.9 L (6.3-8.2) g/dL Albumin 2.4 L (3.5-5.0) g/dL 03/09/22 03/09/22 03/10/22 Range/Units 18:38 22:45 00:51 WBC (3.8-10.6) k/uL RBC (3.80-5.40) m/uL Hgb (11.4-16.0) gm/dL Hct (34.0-46.0) % RDW (11.5-15.5) % Neutrophils # (Manual) (1.3-7.7) k/uL Monocytes # (Manual) (0-1.0) k/uL Metamyelocytes # (Man) (0) k/uL Myelocytes # (Manual) (0) k/uL Nucleated RBCs (0-0) /100 WBC PT (9.0-12.0) sec INR (<1.2) APTT 44.8 H (22.0-30.0) sec ABG pH (7.35-7.45) ABG pCO2 (35-45) mmHg ABG pO2 (83-108) mmHg ABG HCO3 (21-25) mmol/L ABG Total CO2 (19-24) mmol/L ABG O2 Saturation (94-97) % ABG Lactic Acid (0.5-1.6) mmol/L Sodium (137-145) mmol/L BUN (7-17) mg/dL Creatinine (0.52-1.04) mg/dL Glucose (74-99) mg/dL POC Glucose (mg/dL) 219 H 225 H (70-110) mg/dL Calcium (8.4-10.2) mg/dL Total Bilirubin (0.2-1.3) mg/dL AST (14-36) U/L ALT (4-34) U/L Alkaline Phosphatase (38-126) U/L Lactate Dehydrogenase (313-618) U/L Total Protein (6.3-8.2) g/dL Albumin (3.5-5.0) g/dL 03/10/22 03/10/22 03/10/22 Range/Units 01:08 05:43 05:43 WBC (3.8-10.6) k/uL RBC (3.80-5.40) m/uL Hgb (11.4-16.0) gm/dL Hct (34.0-46.0) % RDW (11.5-15.5) % Neutrophils # (Manual) (1.3-7.7) k/uL Monocytes # (Manual) (0-1.0) k/uL Metamyelocytes # (Man) (0) k/uL Myelocytes # (Manual) (0) k/uL Nucleated RBCs (0-0) /100 WBC PT 16.3 H (9.0-12.0) sec INR 1.6 H (<1.2) APTT 84.0 H (22.0-30.0) sec ABG pH (7.35-7.45) ABG pCO2 (35-45) mmHg ABG pO2 (83-108) mmHg ABG HCO3 (21-25) mmol/L ABG Total CO2 (19-24) mmol/L ABG O2 Saturation (94-97) % ABG Lactic Acid (0.5-1.6) mmol/L Sodium 134 L (137-145) mmol/L BUN 57 H (7-17) mg/dL Creatinine 5.88 H (0.52-1.04) mg/dL Glucose 151 H (74-99) mg/dL POC Glucose (mg/dL) (70-110) mg/dL Calcium 7.7 L (8.4-10.2) mg/dL Total Bilirubin 2.7 H (0.2-1.3) mg/dL AST 213 H (14-36) U/L ALT 45 H (4-34) U/L Alkaline Phosphatase 31 L (38-126) U/L Lactate Dehydrogenase 4781 H (313-618) U/L Total Protein 5.3 L (6.3-8.2) g/dL Albumin 2.6 L (3.5-5.0) g/dL 03/10/22 03/10/22 03/10/22 Range/Units 05:43 05:46 05:48 WBC 23.9 H (3.8-10.6) k/uL RBC 1.30 L (3.80-5.40) m/uL Hgb 3.7 L* (11.4-16.0) gm/dL Hct 11.0 L* (34.0-46.0) % RDW 23.7 H (11.5-15.5) % Neutrophils # (Manual) 18.88 H (1.3-7.7) k/uL Monocytes # (Manual) 1.67 H (0-1.0) k/uL Metamyelocytes # (Man) 0.24 H (0) k/uL Myelocytes # (Manual) 0.24 H (0) k/uL Nucleated RBCs 2 H (0-0) /100 WBC PT (9.0-12.0) sec INR (<1.2) APTT (22.0-30.0) sec ABG pH 7.53 H (7.35-7.45) ABG pCO2 31 L (35-45) mmHg ABG pO2 162 H (83-108) mmHg ABG HCO3 26 H (21-25) mmol/L ABG Total CO2 27 H (19-24) mmol/L ABG O2 Saturation 100.0 H (94-97) % ABG Lactic Acid (0.5-1.6) mmol/L Sodium (137-145) mmol/L BUN (7-17) mg/dL Creatinine (0.52-1.04) mg/dL Glucose (74-99) mg/dL POC Glucose (mg/dL) 200 H (70-110) mg/dL Calcium (8.4-10.2) mg/dL Total Bilirubin (0.2-1.3) mg/dL AST (14-36) U/L ALT (4-34) U/L Alkaline Phosphatase (38-126) U/L Lactate Dehydrogenase (313-618) U/L Total Protein (6.3-8.2) g/dL Albumin (3.5-5.0) g/dL Assessment and Plan Assessment: Prolonged cardiac arrest and had multiple episodes of arrest on 03/08/2022 (unsure exact total down time) due to NSTEMI. Likely severe Anoxic brain injury due to prolonged cardiac arrest Some component of encephalopathy due to medication effect (IV Propofol) Acute coronary syndrome status post cardiac cath and PCI stenting of LAD and left circumflex with Impella Cardiogenic sock Acute hypoxic respiratory failure related to the to her multiple cardiac arrest requiring intubation and mechanical ventilation Acute on chronic anemia End-stage renal disease on dialysis Elevated liver function due to cardiogenic shock Previous history of coronary artery disease status post stenting Ischemic artery mild. Diabetes mellitus type 2 Dyslipidemia Hypertension Plan: Pending urgent CT of the head once patient is stable. Pending EEG. 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 Ammonia level <9 On neuro checks every 2 hours Cardiology team is on board Nephrology team is on board On cardiac monitoring We'll defer the rest of the medical management to the primary and ICU team Patient is a Buddhism and cannot get any blood transfusion. Her currentl Hemoglobin is 3.7. On my examination the patient has few brainstem reflex (breathing over the vent and has weak gag). Her condition: Is extremely poor. The plan discussed with patient's nurse. I also called the patient's mother who handed the phone to her son and I updated them about her condition from neurological perspective. Dr. Raymond will start neurology service tomorrow ALouisa Linares M.D. Neuro-hospitalist Time with Patient: Less than 30
[2022-03-10] MEDS: MAGNESIUM SULFATE-D5W PMX 1 GM in DEXTROSE/WATER 1 100ML.BAG IVPB SCH ×2 (11:16→12:26)
[2022-03-10] MEDS: HEPARIN SODIUM,PORCINE 12,500 UNIT in DEXTROSE 5% IN WATER 500 ML IV SCH ×2 (12:01)
[2022-03-10 12:12] LABS: Glucose,Whole Blood 263 mg/dL (70-110)
[2022-03-10] MEDS: EPINEPHrine 4 MG in DEXTROSE 5% IN WATER 250 ML IV SCH ×2 (12:39)
[2022-03-10] MEDS: GABAPENTIN 100 MG CAP PO SCH (12:57)
[2022-03-10 13:05] VITALS: TEMP 99.3
--- NOTE | 2022-03-10 13:06 | P.PN ---
Subjective Progress Note Date: 03/10/22 47-year-old woman with medical history of end-stage renal disease as well as coronary artery disease status post stents in the past presented for chest pain. Patient's hospital course was complicated by two code blues earlier in the day, and subsequently was transferred to the Access Representative for further intervention. I was called to bedside for another CODE BLUE during Access Representative intervention. By the time my arrival, patient had return of spontaneous circulation, received 1 g of calcium chloride as well as an additional amp of bicarb, however, later developed V. tach, received one attempt at defibrillation as well as load of amiodarone and lidocaine. Patient then lost her pulse again requiring additi onal epinephrine as well as bicarb. We were able to regain her pulse again, and she was started on an epinephrine drip as well as low-dose bicarb drip. Patient's intervention required multiple stents, balloon angioplasty, and Impella placement (see intervention note for more details). After Impala and initial stent placement patient was following commands but was gagging on the ventilator and appeared to be in distress. Therefore, she received 1 mg of Versed and 50 g of fentanyl. However, during the latter half of the intervention it was felt that he would be better to reverse her sedation while in the Access Representative given her significant hemodynamic fluctuations. Therefore, she was given a dose of flumazenil as well as 2 doses of Narcan. Patient's intervention course was also complicated by bradycardia as low as mid 30s, this improved with multiple rounds of atropine as well as dopamine drip. After full revascularization of the left coronary system, patient's heart function signifi cantly improved, her heart rate turned into atrial fibrillation and peaked in the 150s to 160s. At this point dopamine was stopped, epinephrine was down titrated. By the time she was ready to be transferred back to the intensive care unit patient was again interactive and following commands, moving all extremities. I also reevaluate her in the ICU after her intervention, she appeared agitated, but moving all extremities, following commands. She is placed on propofol at 40, same vent settings, 1 mg every hour when necessary of Dilaudid. Initially, she required 4 point restraints, but this improved. She did appear to have dopplerable pulses in all extremities. Her pressures were good, epinephrine discontinued, remained on Levophed alone. She was hypothermic. Postintervention chest x-ray demonstrates pulmonary edema, diffusely consistent with heart failure. Postintervention ABG shows a pH of 7.29, pCO2 of 49, pO2 of 315. Postintervention lactate was 10.1, postintervention troponin was 2.1. Case was discussed with interventional list as well as ICU physician. 03/09/2022 Resuming care of this patient from [facility] as patient initially was admitted under observation status and has been made inpatient Patient is seen and evaluated in the ICU continues to be on mechanical vent with an FiO2 of 35% and PEEP is 5. Patient is status post cardiac arrest multiple ti mes yesterday. Patient is status post cardiac catheterization with Dr. Schaeffer and underwent stenting of the left anterior descending artery along with the left circumflex coronary artery and placement of Impella in the left ventricle. Patient continues with fem stop of the left groin area status post cardiac catheterization and per nursing staff attempted to remove this and experienced continuous bleeding and was instructed by cardiology to continue with the feb stop for now. Hemoglobin is 5.9 and intensive is recommending repeat labs and patient is continued on hemodialysis with nephrology following closely. No plan for dialysis today as patient is unstable. Patient is jehovah witness and do not agree with blood products. Prognosis is definitely guarded. 03/10/2022 Patient is seen this morning continues to be the ICU in critical condition in a nonmechanical vent with an FiO2 of 35% and PEEP is 5. Patient's hemoglobin continues to drop and is currently 3.7 with hematocrit of 11 and platelets are 153. WBC is elevated at 23.9, sodium 134 with a potassium of 4.1 and BUN is 57 with a creatinine of 5.88 and magnesium is 1.9, LDH is 5380. Patient is a Jehovah witness and has refused all blood products. Family has made this confirmed as well. Given patient's overall clinical picture and continued deterioration CODE STATUS was discussed and family is agreeable with no code alt jennifer they would like to continue with supportive measures and ultimate goal of making the patient comfortable. Patient is requiring pressor support along with propofol and continues to receive IV iron. Patient did receive a dose of DDAVP and bruising of the left femoral site appears to have stopped although continues with the fem stop from cardiac catheterization. Patient also continues on IV heparin. Overall prognosis is extremely poor and guarded. Review of systems: Unable to obtain as patient is intubated All medications have been reviewed Active Medications Al Hydroxide/Mg Hydroxide (Mag Hydrox/Al Hydrox/Simeth 30 Ml Cup) 30 ml PO Q4HR PRN PRN Reason: Heartburn Albuterol Sulfate (Albuterol Nebulized 2.5 Mg/3 Ml) 2.5 mg INHALATION RT-QID PRN PRN Reason: Shortness Of Breath Last Admin: 03/07/22 20:09 Dose: 2.5 mg Albuterol/Ipratropium (Ipratropium-Albuterol 3 Ml Neb) 3 ml INHALATION RT-Q4H [facility] Last Admin: 03/10/22 08:21 Dose: 3 ml Aspirin (Aspirin 81 Mg) 81 mg PO DAILY [facility] Last Admin: 03/10/22 08:46 Dose: 81 mg Atorvastatin Calcium (Atorvastatin 80 Mg Tab) 80 mg PO [facility] Last Admin: 03/09/22 21:50 Dose: 80 mg Atropine Sulfate (Atropine Sulfate 0.1 Mg/Ml 10ml Syringe) 0.5 mg IV ONCE PRN PRN Reason: Symptomatic Bradycardia Calcitriol (Calcitriol 0.25 Mcg Cap) 1 mcg PO DAILY [facility] Last Admin: 03/10/22 08:44 Dose: Not Given Calcium Acetate (Calcium Acetate 667 Mg Tab) 1,334 mg PO TID-W/MEALS [facility] Last Admin: 03/10/22 08:43 Dose: Not Given Chlorhexidine Gluconate (Chlorhexidine Gluconate 15 Ml Cup) 15 ml MUCOUS MEM BID [facility] Last Admin: 03/10/22 08:44 Dose: 15 ml Cinacalcet (Cinacalcet 30 Mg Tab) 90 mg PO [id number]@0900 [facility] Last Admin: 03/08/22 08:51 Dose: 90 mg Cyclobenzaprine HCl (Cyclobenzaprine 10 Mg Tab) 10 mg PO TID PRN PRN Reason: Muscle Spasm Last Admin: 03/07/22 22:48 Dose: 10 mg Darbepoetin Tigre (Darbepoetin Tigre 100mcg/0.5ml Syringe) 100 mcg SQ Q7D [facility] Last Admin: 03/09/22 12:18 Dose: 100 mcg Gabapentin (Gabapentin 400 Mg Cap) 400 mg PO HS [facility] Last Admin: 03/09/22 21:50 Dose: 400 mg Gabapentin (Gabapentin 100 Mg Cap) 200 mg PO DAILY@1200 [facility] Last Admin: 03/09/22 10:34 Dose: 200 mg Heparin Sodium (Porcine) (Heparin Sodium 1,000 Un/Ml (10ml Vl)) 0 unit IV PER PROTOCOL PRN; Protocol PRN Reason: Low PTT Last Admin: 03/10/22 00:10 Dose: 1,687 unit Hydromorphone HCl (Hydromorphone 1 Mg/Ml 1 Ml Syringe) 1 mg IVP Q1H PRN PRN Reason: Pain Last Admin: 03/08/22 15:24 Dose: 1 mg Epinephrine HCl 4 mg/ Dextrose (/Water) 250 mls @ 2.211 mls/hr IV .Q24H [facility]; Protocol Last Admin: 03/10/22 12:39 Dose: Not Given Heparin Sodium/Sodium Chloride (25,000 unit/ Sodium Chloride) 250 mls @ 7.076 mls/hr IV .Q24H [facility]; Protocol Last Titration: 03/10/22 07:45 Dose: 7 units/kg/hr, 4.128 mls/hr Heparin Sodium (Porcine) 12, (500 unit/ Dextrose/Water) 501.25 mls @ 0 mls/hr IV DIRECTED [facility]; Protocol Last Admin: 03/10/22 12:01 Dose: 15 mls/hr Propofol 1,000 mg/ IV Solution 100 mls @ 1.769 mls/hr IV .Q24H [facility]; Protocol Last Admin: 03/10/22 10:32 Dose: 55 mcg/kg/min, 19.459 mls/hr Ferric Sodium Gluconate 125 mg (/ Sodium Chloride) 110 mls @ 100 mls/hr IVPB DAILY [facility] Last Admin: 03/10/22 04:25 Dose: 100 mls/hr Norepinephrine Bitartrate 32 (mg/ Sodium Chloride) 250 mls @ 1.535 mls/hr IV .Q24H [facility]; Protocol Last Titration: 03/10/22 12:38 Dose: 0.34 mcg/kg/min, 10.439 mls/hr Insulin Aspart (Insulin Aspart (Novolog) 100 Unit/Ml Vial) 0 unit SQ Q6HR [facility]; Protocol Last Admin: 03/10/22 05:50 Dose: 1 unit Midodrine (Midodrine 5 Mg Tab) 5 mg PO ONCE PRN PRN Reason: Hypotension Last Admin: 03/08/22 10:42 Dose: 5 mg Midodrine (Midodrine 5 Mg Tab) 5 mg PO AC-TID [facility] Last Admin: 03/10/22 09:48 Dose: 5 mg Miscellaneous Information (Rx Info: Iv Contrast Was Given 1 Each Misc) 1 each MISCELLANE DAILY PRN PRN Reason: Per Protocol Stop: 03/10/22 14:10 Pantoprazole Sodium (Pantoprazole 40 Mg/10 Ml Vial) 40 mg IVP DAILY [facility] Last Admin: 03/10/22 08:44 Dose: 40 mg Prasugrel (Prasugrel 10 Mg Tab) 10 mg PO DAILY [facility] Last Admin: 03/10/22 08:44 Dose: 10 mg Ropinirole HCl (Ropinirole Hcl 1 Mg Tab) 1 mg PO BID [facility] Last Admin: 03/10/22 08:45 Dose: 1 mg Ropinirole HCl (Ropinirole Hcl 0.25 Mg Tab) 0.25 mg PO BID [facility] Last Admin: 03/10/22 08:45 Dose: 0.25 mg Sodium Chloride (Sodium Chloride 0.9% Flush 10 Ml Syringe) 10 ml IV BID [facility] Last Admin: 03/10/22 08:46 Dose: Not Given PHYSICAL EXAMINATION: GENERAL: The patient is intubated and sedated, Well developed, well nourished. HEENT: Pupils are round and equally reacting to light. EOMI. no scleral icterus. No conjunctival pallor. Normocephalic, atraumatic. No pharyngeal erythema. No thyromegaly. CARDIOVASCULAR: S1 and S2 muffled PULMONARY: diminished breath sounds bilaterally with some scattered rhonchi and crackles noted. ABDOMEN: soft. Nontender. obese. non-distended, normoactive bowel sounds. No palpable organomegaly. MUSCULOSKELETAL: No joint swelling or deformity. EXTREMITIES: No cyanosis, clubbing, or pedal edema. Cold extremities with difficult obtaining pulses although able to detect faintly with Doppler NEUROLOGICAL: unable to assess as patient is sedated SKIN: No rashes. Assessment: NSTEMI Status post cardiac arrest multiple times Large thrombus burden involving the distal left main and LC and LAD status post cardiac catheterization with impella and stenting to the LAD and circumflex Cardiogenic shock requiring pressor support and mechanical ventilation Known history of total occlusion of the RCA Normocytic anemia, likely due to end-stage renal disease End-stage renal disease maintained on hemodialysis at home [facility] and is not agreeable with any blood products Hypokalemia Diabetes mellitus type 2 Hypertension Hyperlipidemia GI prophylaxis DVT prophylaxis No code Plan: Recommend to continue with current medications and management with comfort measures in mind and supportive care. Patient's hemoglobin continues to drop and is currently 3.7 and would require multiple transfusions although patient is a Jehovah witness and is not agreeable with any blood products. This was dis cussed with family and after a lengthy discussion, the family has agreed on no code but would like to continue with supportive measures and ultimately making the patient comfortable. Multiple medical consultations following. Nephrology has well and patient is unstable for dialysis and was given a dose of DDAVP yesterday showing some improvement in the left femoral catheter site and losing appears to have stopped although continue with femstop for now per cardiology. Faint pulses obtained distally with Doppler and patient is on pressor support and continued on IV heparin. Overall prognosis is extremely poor and guarded. Family members at the bedside and questions and concerns were answered. CODE STATUS was changed to no code family would like to continue with supportive measures for patient comfort at this time. Again overall prognosis is extremely poor and guarded at this time. The impression and plan of care has been dictated by Sharona Johnson, nurse practitioner as directed. Dr. Kramer. I have performed a history and examination and MDM of this patient, discussed the same with the dictator, and agree with the dictator's assessment and plan as written ,documented as a scribe. Based on total visit time, I have performed more than 50% of the visit. Any additional findings or plans will be noted. Objective - Vital Signs Vital signs: Vital Signs Temp 98.7 F 03/10/22 08:00 Pulse 93 03/10/22 08:37 Resp 18 03/10/22 08:15 BP 96/65 03/10/22 08:15 Pulse Ox 90 L 03/10/22 08:15 FiO2 25 03/10/22 08:00 Intake & Output 03/09/22 03/10/22 03/10/22 18:59 06:59 18:59 Intake Total 905.480 874.488 142.629 Output Total 0 200 Balance 905.480 674.488 142.629 Weight 65.5 kg Intake: IV 426 399 73 0.9@20mls/hr 240 260 20 Desmopressin Acetate 20 50 50 mcg In Sodium Chloride 0. 9% 50 ml @ 200 mls/hr IVPB ONCE ONE Rx#: [id number] Sodium Ferric Gluconat- 100 100 Sucrose 125 mg In Sodium Chloride 0.9% 100 ml @ 100 mls/hr IVPB DAILY [facility] Rx#:[id number] pressure bag 36 39 3 Intake, IV Titration 479.480 475.488 69.629 Amount Heparin Sod,Pork in 0.45% 45.05 51.775 16.982 NaCl 25,000 unit In 0.45 % NaCl 1 250ml.bag @ 12 UNITS/KG/HR 7.076 mls/hr IV .Q24H [facility] Rx#: [id number] Norepinephrine 4 mg In 239.847 275.065 52.647 Sodium Chloride 0.9% 250 ml @ 0.05 MCG/KG/MIN 11. 233 mls/hr IV .[id number] [facility] Rx#:[id number] propofoL 1,000 mg In 194.583 148.648 Empty Bag 1 bag @ 5 MCG/ KG/MIN 1.769 mls/hr IV . Q24H [facility] Rx#:[id number] Output: Gastric Drainage 200 Urine 0 0 ABP, PAP, CO, CI - Last Documented Arterial Blood Pressure 85/53 - Labs CBC & Chem 7: 03/10/22 05:43 03/10/22 05:43 Labs: Abnormal Lab Results - Last 24 Hours (Table) 03/09/22 03/09/22 03/09/22 Range/Units 11:34 14:42 14:42 WBC (3.8-10.6) k/uL RBC (3.80-5.40) m/uL Hgb (11.4-16.0) gm/dL Hct (34.0-46.0) % RDW (11.5-15.5) % Neutrophils # (Manual) (1.3-7.7) k/uL Monocytes # (Manual) (0-1.0) k/uL Metamyelocytes # (Man) (0) k/uL Myelocytes # (Manual) (0) k/uL Nucleated RBCs (0-0) /100 WBC PT (9.0-12.0) sec INR (<1.2) APTT (22.0-30.0) sec ABG pH (7.35-7.45) ABG pCO2 (35-45) mmHg ABG pO2 (83-108) mmHg ABG HCO3 (21-25) mmol/L ABG Total CO2 (19-24) mmol/L ABG O2 Saturation (94-97) % ABG Lactic Acid 4.1 H* (0.5-1.6) mmol/L Sodium (137-145) mmol/L BUN (7-17) mg/dL Creatinine (0.52-1.04) mg/dL Glucose (74-99) mg/dL POC Glucose (mg/dL) 220 H (70-110) mg/dL Calcium (8.4-10.2) mg/dL Total Bilirubin (0.2-1.3) mg/dL AST (14-36) U/L ALT (4-34) U/L Alkaline Phosphatase (38-126) U/L Lactate Dehydrogenase 3761 H (313-618) U/L Total Protein (6.3-8.2) g/dL Albumin (3.5-5.0) g/dL 03/09/22 03/09/22 03/09/22 Range/Units 16:40 16:40 16:40 WBC 19.5 H (3.8-10.6) k/uL RBC 1.75 L (3.80-5.40) m/uL Hgb 4.8 L* (11.4-16.0) gm/dL Hct 15.2 L* (34.0-46.0) % RDW 21.9 H (11.5-15.5) % Neutrophils # (Manual) 16.30 H (1.3-7.7) k/uL Monocytes # (Manual) (0-1.0) k/uL Metamyelocytes # (Man) (0) k/uL Myelocytes # (Manual) (0) k/uL Nucleated RBCs 7 H (0-0) /100 WBC PT 16.3 H (9.0-12.0) sec INR 1.6 H (<1.2) APTT 70.8 H (22.0-30.0) sec ABG pH (7.35-7.45) ABG pCO2 (35-45) mmHg ABG pO2 (83-108) mmHg ABG HCO3 (21-25) mmol/L ABG Total CO2 (19-24) mmol/L ABG O2 Saturation (94-97) % ABG Lactic Acid (0.5-1.6) mmol/L Sodium (137-145) mmol/L BUN 50 H (7-17) mg/dL Creatinine 5.10 H (0.52-1.04) mg/dL Glucose 186 H (74-99) mg/dL POC Glucose (mg/dL) (70-110) mg/dL Calcium 7.5 L (8.4-10.2) mg/dL Total Bilirubin 2.4 H (0.2-1.3) mg/dL AST 234 H (14-36) U/L ALT 56 H (4-34) U/L Alkaline Phosphatase (38-126) U/L Lactate Dehydrogenase (313-618) U/L Total Protein 4.9 L (6.3-8.2) g/dL Albumin 2.4 L (3.5-5.0) g/dL 03/09/22 03/09/22 03/10/22 Range/Units 18:38 22:45 00:51 WBC (3.8-10.6) k/uL RBC (3.80-5.40) m/uL Hgb (11.4-16.0) gm/dL Hct (34.0-46.0) % RDW (11.5-15.5) % Neutrophils # (Manual) (1.3-7.7) k/uL Monocytes # (Manual) (0-1.0) k/uL Metamyelocytes # (Man) (0) k/uL Myelocytes # (Manual) (0) k/uL Nucleated RBCs (0-0) /100 WBC PT (9.0-12.0) sec INR (<1.2) APTT 44.8 H (22.0-30.0) sec ABG pH (7.35-7.45) ABG pCO2 (35-45) mmHg ABG pO2 (83-108) mmHg ABG HCO3 (21-25) mmol/L ABG Total CO2 (19-24) mmol/L ABG O2 Saturation (94-97) % ABG Lactic Acid (0.5-1.6) mmol/L Sodium (137-145) mmol/L BUN (7-17) mg/dL Creatinine (0.52-1.04) mg/dL Glucose (74-99) mg/dL POC Glucose (mg/dL) 219 H 225 H (70-110) mg/dL Calcium (8.4-10.2) mg/dL Total Bilirubin (0.2-1.3) mg/dL AST (14-36) U/L ALT (4-34) U/L Alkaline Phosphatase (38-126) U/L Lactate Dehydrogenase (313-618) U/L Total Protein (6.3-8.2) g/dL Albumin (3.5-5.0) g/dL 03/10/22 03/10/22 03/10/22 Range/Units 01:08 05:43 05:43 WBC (3.8-10.6) k/uL RBC (3.80-5.40) m/uL Hgb (11.4-16.0) gm/dL Hct (34.0-46.0) % RDW (11.5-15.5) % Neutrophils # (Manual) (1.3-7.7) k/uL Monocytes # (Manual) (0-1.0) k/uL Metamyelocytes # (Man) (0) k/uL Myelocytes # (Manual) (0) k/uL Nucleated RBCs (0-0) /100 WBC PT 16.3 H (9.0-12.0) sec INR 1.6 H (<1.2) APTT 84.0 H (22.0-30.0) sec ABG pH (7.35-7.45) ABG pCO2 (35-45) mmHg ABG pO2 (83-108) mmHg ABG HCO3 (21-25) mmol/L ABG Total CO2 (19-24) mmol/L ABG O2 Saturation (94-97) % ABG Lactic Acid (0.5-1.6) mmol/L Sodium 134 L (137-145) mmol/L BUN 57 H (7-17) mg/dL Creatinine 5.88 H (0.52-1.04) mg/dL Glucose 151 H (74-99) mg/dL POC Glucose (mg/dL) (70-110) mg/dL Calcium 7.7 L (8.4-10.2) mg/dL Total Bilirubin 2.7 H (0.2-1.3) mg/dL AST 213 H (14-36) U/L ALT 45 H (4-34) U/L Alkaline Phosphatase 31 L (38-126) U/L Lactate Dehydrogenase 4781 H (313-618) U/L Total Protein 5.3 L (6.3-8.2) g/dL Albumin 2.6 L (3.5-5.0) g/dL 03/10/22 03/10/22 03/10/22 Range/Units 05:43 05:46 05:48 WBC 23.9 H (3.8-10.6) k/uL RBC 1.30 L (3.80-5.40) m/uL Hgb 3.7 L* (11.4-16.0) gm/dL Hct 11.0 L* (34.0-46.0) % RDW 23.7 H (11.5-15.5) % Neutrophils # (Manual) 18.88 H (1.3-7.7) k/uL Monocytes # (Manual) 1.67 H (0-1.0) k/uL Metamyelocytes # (Man) 0.24 H (0) k/uL Myelocytes # (Manual) 0.24 H (0) k/uL Nucleated RBCs 2 H (0-0) /100 WBC PT (9.0-12.0) sec INR (<1.2) APTT (22.0-30.0) sec ABG pH 7.53 H (7.35-7.45) ABG pCO2 31 L (35-45) mmHg ABG pO2 162 H (83-108) mmHg ABG HCO3 26 H (21-25) mmol/L ABG Total CO2 27 H (19-24) mmol/L ABG O2 Saturation 100.0 H (94-97) % ABG Lactic Acid (0.5-1.6) mmol/L Sodium (137-145) mmol/L BUN (7-17) mg/dL Creatinine (0.52-1.04) mg/dL Glucose (74-99) mg/dL POC Glucose (mg/dL) 200 H (70-110) mg/dL Calcium (8.4-10.2) mg/dL Total Bilirubin (0.2-1.3) mg/dL AST (14-36) U/L ALT (4-34) U/L Alkaline Phosphatase (38-126) U/L Lactate Dehydrogenase (313-618) U/L Total Protein (6.3-8.2) g/dL Albumin (3.5-5.0) g/dL
[2022-03-10 14:58] LABS: Partial Thromboplastin Time 53.6 sec (22.0-30.0)
[2022-03-10] MEDS ORDERED: DOBUTamine DRIP 500 MG in DEXTROSE/WATER 1 250ML.BAG IV SCH (15:00)
[2022-03-10 19:09] VITALS: BP 95/68; PULSE 0; RESP 0
--- NOTE | 2022-03-11 09:51 | P.DS ---
Providers Date of admission: 03/07/22 02:35 Attending physician: Mayito Kramer Consults: 03/07/22 02:35 Consult Physician Routine Consulting Provider: Gloria Reyes Consult Reason/Comments: Dialysis patient with fluid overload Do you want consulting provider notified?: Yes 03/07/22 03:42 Consult Physician Urgent Consulting Provider: Renaldo Schaeffer Consult Reason/Comments: NSTEMI Do you want consulting provider notified?: Yes 03/08/22 14:10 Consult Physician Routine Consulting Provider: [facility] Consult Reason/Comments: Post Interventional Patient Do you want consulting provider notified?: Already Contacted 03/08/22 14:15 Consult Physician Urgent Consulting Provider: Geoffrey Linares Consult Reason/Comments: ICU management Do you want consulting provider notified?: Already Contacted 03/08/22 19:07 Consult Physician Routine Consulting Provider: Raulito Linares Consult Reason/Comments: prolonged downtime Do you want consulting provider notified?: Yes Primary care physician: De Hopper Hospital Course: Patient was made comfort measures predominantly with no aggressive measures like resuscitation, but continue with ongoing therapy. Patient overall clinical condition continued to get worse after extensive discussion with the family family decided not to transfuse any blood products. Patient was DO NOT RESUSCITATE, subsequently on 03/10/2021. Please refer to nursing documentation for exact time of . Refer to the progress note from the same date for further details of hospitalization. Patient Condition at Discharge: Undetermined Plan - Discharge Summary Discharge Rx Participant: No New Discharge Prescriptions: New Darbepoetin Tigre [Aranesp] 40 mcg SQ Q7D each Continue rOPINIRole HCL [Requip] 1 mg PO BID Magnebind 300 1 tab PO TID-W/MEALS Gabapentin [Neurontin] 200 mg PO DAILY@1200 rOPINIRole HCL [Requip] 0.25 mg PO BID calcitrioL [Calcitriol] 1 mcg PO DAILY Lidocaine-Prilocaine Cream [Emla Cream 2.5%/2.5%] 1 applic TOPICAL DAILY PRN PRN Reason: 1-2 hours prior to dialysis Calcium Acetate [PhosLo] 1,334 mg PO TID-W/MEALS Atorvastatin [Lipitor] 80 mg PO DAILY 30 Days #30 tab Nitroglycerin Sl Tabs [Nitrostat] 0.4 mg SUBLINGUAL Q5M PRN #25 tab PRN Reason: Chest Pain Clopidogrel [Plavix] 75 mg PO DAILY 30 Days #30 tab Zolpidem [Ambien] 5 mg PO HS PRN PRN Reason: Insomnia Metoprolol Tartrate [Lopressor] 25 mg PO BID #60 tab Aspirin 81 mg PO DAILY Pantoprazole [Protonix] 40 mg PO BID 30 Days #60 tab Midodrine [ProAmatine] 5 mg PO TID 30 Days #90 tab Amitriptyline HCl 10 mg PO HS Ergocalciferol (Vitamin D2) [Drisdol (50,000 Iu)] 1,250 mcg PO MO Cinacalcet HCl [Sensipar] 90 mg PO MOTUWETHFR Cyclobenzaprine [Flexeril] 10 mg PO TID PRN PRN Reason: Muscle Spasm Gabapentin [Neurontin] 400 mg PO HS Isosorbide Mononitrate ER [Imdur] 30 mg PO DAILY 30 Days #30 tab Albuterol Inhaler [Ventolin Hfa Inhaler] 1 puff INHALATION RT-QID PRN 30 Days #8 gm PRN Reason: Shortness Of Breath Discontinued Omeprazole 20 mg PO DAILY Discharge Medication List Magnebind 300 1 tab PO TID-W/MEALS 03/17/19 [History] rOPINIRole HCL [Requip] 1 mg PO BID 03/17/19 [History] Gabapentin [Neurontin] 200 mg PO DAILY@1200 07/16/21 [History] Calcium Acetate [PhosLo] 1,334 mg PO TID-W/MEALS 08/16/21 [History] Cinacalcet HCl [Sensipar] 90 mg PO MOTUWETHFR 08/16/21 [History] Ergocalciferol (Vitamin D2) [Drisdol (50,000 Iu)] 1,250 mcg PO MO 08/16/21 [History] Lidocaine-Prilocaine Cream [Emla Cream 2.5%/2.5%] 1 applic TOPICAL DAILY PRN 08/16/21 [History] calcitrioL [Calcitriol] 1 mcg PO DAILY 08/16/21 [History] rOPINIRole HCL [Requip] 0.25 mg PO BID 08/16/21 [History] Atorvastatin [Lipitor] 80 mg PO DAILY 30 Days #30 tab 08/20/21 [Rx] Clopidogrel [Plavix] 75 mg PO DAILY 30 Days #30 tab 08/20/21 [Rx] Nitroglycerin Sl Tabs [Nitrostat] 0.4 mg SUBLINGUAL Q5M PRN #25 tab 08/20/21 [Rx] Zolpidem [Ambien] 5 mg PO HS PRN 09/20/21 [History] Metoprolol Tartrate [Lopressor] 25 mg PO BID #60 tab 09/22/21 [Rx] Aspirin 81 mg PO DAILY 01/30/22 [History] Cyclobenzaprine [Flexeril] 10 mg PO TID PRN 01/30/22 [History] Gabapentin [Neurontin] 400 mg PO HS 01/30/22 [History] Albuterol Inhaler [Ventolin Hfa Inhaler] 1 puff INHALATION RT-QID PRN 30 Days #8 gm 02/01/22 [Rx] Isosorbide Mononitrate ER [Imdur] 30 mg PO DAILY 30 Days #30 tab 02/01/22 [Rx] Midodrine [ProAmatine] 5 mg PO TID 30 Days #90 tab 02/01/22 [Rx] Pantoprazole [Protonix] 40 mg PO BID 30 Days #60 tab 02/01/22 [Rx] Amitriptyline HCl 10 mg PO HS 03/07/22 [History] Darbepoetin Tigre [Aranesp] 40 mcg SQ Q7D each 03/08/22 [Rx] Follow up Appointment(s)/Referral(s): De Hopper MD [Primary Care Provider] - 1-2 Days Leonard Bauer MD [STAFF PHYSICIAN] - 1 Week Activity/Diet/Wound Care/Special Instructions: Follow up with your PCP within 1-2 days of discharge. Follow up with Cardiology Dr. Bauer within 1 week of discharge. Take all medications as advised. Come back to the ED for worsening chest pain, shortness of breath, palpitations, lightheadedness. Restart your home hemodialysis schedule. Discharge Disposition: - Preliminary Cause of Preliminary Cause of : Acute myocardial infarction
== END 2022-03-10 18:40 | disposition expired | DRG 215 ==
LOC: EC 23:59 → 3SCARD 03-07 02:35 → OBSVTOIN 03-08 12:28 → INTOOBSV 03-08 12:55 → 2SICU 03-08 13:30 → UNDODISOB 03-10 18:40
PROVIDERS: ADMIT Internal Medicine; ATTEND Internal Medicine
PROC: 4A023N7 Measurement of Cardiac Sampling and Pressure, Left Heart, Percutaneous Approach (ICD-10-PCS; principal; 2022-03-08 12:20)
PROC: B2111ZZ Fluoroscopy of Multiple Coronary Arteries using Low Osmolar Contrast (ICD-10-PCS; principal; 2022-03-08 12:20)
PROC: 02HA3RZ Insertion of Short-term External Heart Assist System into Heart, Percutaneous Approach (ICD-10-PCS; principal; 2022-03-08 12:20)
PROC: 5A0221D Assistance with Cardiac Output using Impeller Pump, Continuous (ICD-10-PCS; principal; 2022-03-08 12:20)
PROC: 027136Z Dilation of Coronary Artery, Two Arteries with Three Drug-eluting Intraluminal Devices, Percutaneous Approach (ICD-10-PCS; principal; 2022-03-08 12:20)
PROC: 3E033XZ Introduction of Vasopressor into Peripheral Vein, Percutaneous Approach (ICD-10-PCS; 2022-03-08 12:20)
PROC: 0BH17EZ Insertion of Endotracheal Airway into Trachea, Via Natural or Artificial Opening (ICD-10-PCS; 2022-03-08 12:20)
PROC: 5A1945Z Respiratory Ventilation, 24-96 Consecutive Hours (ICD-10-PCS; 2022-03-08 12:20)
PROC: 5A1D70Z Performance of Urinary Filtration, Intermittent, Less than 6 Hours Per Day (ICD-10-PCS; 2022-03-08 12:20)
PROC: 5A12012 Performance of Cardiac Output, Single, Manual (ICD-10-PCS; 2022-03-08 12:20)
DX: I21.4 Non-ST elevation (NSTEMI) myocardial infarction (principal); G92.8 Other toxic encephalopathy; J96.01 Acute respiratory failure with hypoxia; N18.6 End stage renal disease; G93.1 Anoxic brain damage, not elsewhere classified; I13.2 Hypertensive heart and chronic kidney disease with heart failure and with stage 5 chronic kidney disease, or end stage renal disease; I47.2 Ventricular tachycardia; D62 Acute posthemorrhagic anemia; Z66 Do not resuscitate; Z51.5 Encounter for palliative care; I25.5 Ischemic cardiomyopathy; I27.20 Pulmonary hypertension, unspecified; E11.22 Type 2 diabetes mellitus with diabetic chronic kidney disease; I45.9 Conduction disorder, unspecified; I46.2 Cardiac arrest due to underlying cardiac condition; R57.0 Cardiogenic shock; Z79.4 Long term (current) use of insulin; E11.40 Type 2 diabetes mellitus with diabetic neuropathy, unspecified; R57.1 Hypovolemic shock; Z99.2 Dependence on renal dialysis; K72.10 Chronic hepatic failure without coma; I48.91 Unspecified atrial fibrillation; I49.01 Ventricular fibrillation; I50.9 Heart failure, unspecified; D63.1 Anemia in chronic kidney disease; G25.81 Restless legs syndrome; Z71.3 Dietary counseling and surveillance; T41.295A Adverse effect of other general anesthetics, initial encounter; I25.2 Old myocardial infarction; E78.5 Hyperlipidemia, unspecified; I25.10 Atherosclerotic heart disease of native coronary artery without angina pectoris; E87.6 Hypokalemia; K57.90 Diverticulosis of intestine, part unspecified, without perforation or abscess without bleeding; Z78.1 Physical restraint status; Z79.02 Long term (current) use of antithrombotics/antiplatelets; Z79.82 Long term (current) use of aspirin; Z79.899 Other long term (current) drug therapy; Z80.0 Family history of malignant neoplasm of digestive organs; Z53.1 Procedure and treatment not carried out because of patient's decision for reasons of belief and group pressure
CPT/HCPCS: 36415; 36600; 71045; 71046; 80048; 80053; 82140; 82248; 82728; 82805; 83540; 83550; 83605; 83615; 83735; 83880; 84100; 84132; 84484; 85025; 85027; 85384; 85610; 85730; 86850; 86900; 86901; 90935; 92950; 93005; 93306; 93454; 94002; 94003; 94640